=== PATIENT | male | born 1950 | race Caucasian/White ===

== ENCOUNTER 2020-07-09 19:23 | Emergency (ER) | payer MEDICARE, OTHER, SELFPAY ==
[2020-07-09 19:37] VITALS: BP 135/75; BP 150/94; PULSE 75; PULSE 80; RESP 20; TEMP 36.6; O2SAT 93; BMI 32.5
[2020-07-09 20:00] VITALS: BP 131/76; PULSE 74; RESP 16; TEMP 36.4; O2SAT 99
--- NOTE | 2020-07-09 20:27 | PC.NURSE ---
Divya [phone]
--- NOTE | 2020-07-09 21:28 | PC.NURSE ---
pt left knee to be xrayed. pt oseguera patient yellow no clots. seen.
[2020-07-09 21:29] VITALS: BP 151/73; PULSE 77; RESP 18; O2SAT 94
--- NOTE | 2020-07-09 21:40 | XR_ITS ---
EXAMINATION: XR KNEE, RIGHT CLINICAL INFORMATION: Fall COMPARISON: None TECHNIQUE: Four views of the right knee. FINDINGS: Mild medial compartment narrowing with small marginal osteophytes. No fracture. No significant joint effusion. Prepatellar subcutaneous edema/soft tissue swelling. XR/XR knee RT 4V IMPRESSION: No fracture. Mild medial compartment osteoarthritis. Prepatellar subcutaneous edema.
--- NOTE | 2020-07-09 21:53 | ED.MALEGU ---
HPI - Male Genitourinary General Chief complaint: Urogenital-Male Stated complaint: catheter problem Time Seen by Provider: 07/09/20 21:05 Source: patient Mode of arrival: wheelchair History of Present Illness HPI Narrative: This is a 69-year-old male who is brought in with complaints of having fallen onto the right knee without head strike and denies any blood thinners. He states that he has 24 hour care and that he waited until his caregiver had left the house and then attempted to stand on his own but self endorses that he should be strictly using a wheelchair. He denies any associated dizziness, shortness of breath, chest pain / palpitations, recent fevers or chills. He states that his right knee bothers him a little bit but at the time of the event the Witt catheter got pulled on the on the edge of the chair and became dislodged. Related Data Allergies Allergy/AdvReac Type Severity Reaction Status Date / Time No Known Allergies Allergy Verified 07/09/20 19:36 [No Known Allergies*] Review of Systems Review of Systems: Pertinent positives and negatives as stated in HPI 10 point review of systems is otherwise negative. [facility] Past Medical History Source: nursing notes reviewed Medical History Borderline diabetic Hypertension Hyperthyroidism Myocardial infarct Urinary catheter in place Social History Social History Alcohol intake: never Smoking Status: Never smoker Use of substances other than those prescribed or required for medical reasons: No Advance Directives: No Physical Exam Vital Signs: Vital Signs: Last Vital Signs Temp 97.6 F 07/09/20 20:00 Pulse 77 07/09/20 21:29 Resp 18 07/09/20 21:29 BP 151/73 H 07/09/20 21:29 Pulse Ox 94 07/09/20 21:29 Body Mass Index 32.5 VITAL SIGNS: Reviewed. GENERAL: Well developed, well nourished, in no acute distress. HEAD: Normocephalic/atraumatic, EYES: PERRLA, EOMI intact without pain, no nystagmus/pallor/icterus noted EARS: Ext canals without abnormality, TMs non-bulging and non-erythematous NOSE: Nares patent bilateral OROPHARYNX: no oral lesions noted, posterior pharynx clear and non-erythematous without noted tonsillar enlargement/erythema/exudates NECK: Supple, no adenopathy LUNGS: Normal breath sounds. No adventitious sounds or accessory muscle use. SpO2<94> CARDIOVASCULAR: Regular rate and rhythm without noted murmurs, no JVD or lower extremity edema. ABDOMEN: Soft, non-tender, non-distended with bowel sounds. No rigidity. No guarding. No palpable masses or hernias noted MUSCULOSKELETAL: No tenderness, deformities, or effusions noted on gross inspection. EXTREMITIES: No cyanosis, clubbing or edema; RIGHT KNEE: no ecchymosis, minimal swelling, no erythema and patient with limited range of motion at baseline. SKIN: Inspection of the skin reveals no rashes, ulcerations, jaundice, pallor, or petechiae. NEUROLOGIC: Alert and oriented x 4. Strength and sensation to light touch were grossly intact x 4. Course Course Course Narrative: This is a 69-year-old male with history and clinical presentation consistent with mechanical fall with isolated contusion to the right knee and on x-ray evaluation not significant for any fracture or dislocation and Witt catheter was successfully replaced with clear, yellow urine. All results and findings were discussed with the patient at bedside and he wishes to be discharged to home at this time. Discharge Plan Discharge Clinical Impression: Dislodged Witt catheter Qualifiers: Encounter type: initial encounter Qualified Code(s): T83.021A - Displacement of indwelling urethral catheter, initial encounter Contusion Qualifiers: Encounter type: initial encounter Contusion area: knee Laterality: right Qualified Code(s): S80.01XA - Contusion of right knee, initial encounter Patient Disposition: Home, Self-Care Instructions: Contusion in Adults (ED), Witt Catheter Placement and Care (ED) Additional Instructions: The patient and/or family acknowledge understanding of results (as applicable), diagnosis, treatment plan, need for follow up, and symptoms that should prompt a return to the emergency room. Referrals: Physician,Unknown [Primary Care Provider] - 2 days
[2020-07-09 21:58] VITALS: BP 167/80; PULSE 80; RESP 16; TEMP 36.4; O2SAT 96
--- NOTE | 2020-07-09 22:19 | PC.NURSE ---
pt's caregiver called for discharge, pt needs chairvan/ambulance for transport home. pt [facility] time [facility] due to bilateral leg weakness following hear attack 7 months ago. per patient.
== END 2020-07-09 23:13 | disposition home or self-care (01) ==
PROVIDERS: Emergency Provider Student in an Organized Health Care Education/Training Program
DX: S80.01XA Contusion of right knee, initial encounter (principal); T83.021A Displacement of indwelling urethral catheter, initial encounter; M25.561 Pain in right knee; W01.0XXA Fall on same level from slipping, tripping and stumbling without subsequent striking against object, initial encounter; Y93.9 Activity, unspecified; Y92.9 Unspecified place or not applicable; Y99.9 Unspecified external cause status; Z79.899 Other long term (current) drug therapy
CPT/HCPCS: 51798; 73564; 99283; 99284

== ENCOUNTER 2020-10-15 13:34 | Outpatient (REF) | payer MEDICARE, OTHER, SELFPAY ==
[2020-10-15 16:30] LABS: Glucose Urine UA NEG (NEG); Leukocyte Esterase Urine 3+ (NEG); Nitrite Urine NEG (NEG); PH 6.5 (5.0-8.0); Specific Gravity - Urine 1.015 (1.005-1.025); UACC Culture Trigger YES; Urine Blood TRACE (NEG); Urine Ketones NEG (NEG); Urine Protein NEG (NEG-TRACE)
[2020-10-15 16:31] LABS: Appearance Urine HAZY; Color Urine YELLOW
[2020-10-15 16:39] LABS: Bacteria Urine 1+ /LPF; RBC Urine 0 /HPF (0)
== END 2020-10-15 13:35 | disposition home or self-care (01) ==
LOC: HO.HMGCLNP 13:34
PROVIDERS: PCP Internal Medicine; Visit Provider Internal Medicine
DX: Z13.89 Encounter for screening for other disorder (principal)
CPT/HCPCS: 81001; 81003; 87086; 87088

== ENCOUNTER 2020-10-16 23:44 | Inpatient (IN) | payer MEDICARE, OTHER, SELFPAY ==
--- NOTE | ~2020-10-16 | XR_ITS ---
EXAMINATION: XR CHEST CLINICAL INFORMATION: Status post NG tube placement COMPARISON: Chest radiographs 10/17/2020, 11/07/2019 TECHNIQUE: Portable upright AP view of the chest is performed at 1313 hours. FINDINGS: Patient has been extubated since prior study 10/17/2020. There is now an NG tube seen with distal end in the abdomen and extending beyond the inferior film [id number]. Right internal jugular central venous line tip again at proximal right atrium. There are low lung volumes with bibasilar atelectasis. There is interval patchy airspace consolidation left lower zone and right infrahilar region. No pneumothorax or pneumomediastinum. XR/XR chest 1V IMPRESSION: 1. Status post extubation. Status post NG tube with distal end in abdomen. 2. Right IJ catheter unchanged, proximal right atrium. 3. Interval airspace consolidation left lower zone, right infrahilar region, and subsegmental atelectasis right base.
--- NOTE | ~2020-10-16 | XR_ITS ---
EXAMINATION: XR CHEST CLINICAL INFORMATION: Altered mental status COMPARISON: 11/07/2019 TECHNIQUE: Frontal view of the chest was obtained. FINDINGS: Enteric tube courses into the stomach. Right IJ central line tip lies in the region of the cavoatrial junction. Endotracheal tube tip lies at the level of the alli. The lungs are hypoinflated, with associated mild bibasilar opacities suggesting atelectasis in this setting. No evidence of pneumothorax or significant pleural effusion. Cardiomediastinal silhouette is prominent and likely accentuated by low lung volumes as well as patient rotation. Calcification is present at the aortic arch. No acute osseous findings are seen. XR/XR chest 1V IMPRESSION: Endotracheal tube tip at the level of the alli; retraction recommended. Low lung volumes with associated mild bibasilar opacities suggesting atelectasis. Prominent cardiac silhouette may be accentuated by hypoinflation and patient rotation. This critical result was discussed with Dr. Scott on 10/17/2020 12:53 AM, and it was ascertained that the content and urgency of the report was understood at the time of direct communication.
--- NOTE | ~2020-10-16 | CT_ITS ---
EXAM: NONCONTRAST CT OF THE CHEST; NONCONTRAST CT OF THE ABDOMEN AND PELVIS INDICATION: Pneumonia, altered mental status, question small bowel obstruction COMPARISON: Chest x-ray from earlier today TECHNIQUE: No IV contrast was utilized. Multidetector helical imaging was performed through the chest, abdomen, and pelvis. Coronal and sagittal reformatted images were created at the technologist workstation. DOSE LOWERING TECHNIQUES: This CT examination was performed using dose optimization techniques as appropriate, variously including the following: - Automated exposure control - Adjustment of mA and/or kV according to patient size (this includes techniques or standardized protocols for targeted exams were dose is matched to indication/reason for exam; i.e. extremities or head) - Use of iterative reconstruction technique DLP: 1928 mGy-cm FINDINGS: Chest: Endotracheal tube tip lies approximately 0.5 cm above the alli. There are dense regions of opacification bilaterally involving all lobes, predominantly in the inferior/posterior aspects. In addition, there are scattered multifocal regions of mixed consolidation and groundglass opacity bilaterally. No pneumothorax or significant pleural effusion. Partially calcified right thyroid lobe nodule is not well delineated on this exam. There are subcentimeter mediastinal lymph nodes within the range of normal variation. Borderline cardiomegaly without pericardial effusion. Coronary artery calcifications are present. There is atherosclerotic calcification along the aorta. No axillary lymphadenopathy is present. Abdomen/Pelvis: The liver demonstrates hypoattenuation suspicious for steatosis. No intrahepatic biliary ductal dilatation. The gallbladder is unremarkable. The unenhanced spleen and adrenal glands are within normal limits. There is partial fatty atrophy of pancreas. Redemonstrated bilateral renal cysts. There is a right renal calculus measuring up to 10 mm in length. No hydronephrosis bilaterally. The urinary bladder is decompressed with a Witt catheter. The prostate and seminal vesicles are unremarkable. Enteric tube terminates in the stomach. There is gaseous distention of multiple small bowel loops in the upper abdomen, some of which are mildly dilated with some fecalized material. In contrast, distal small bowel loops are collapsed. No discrete transition point is seen. Moderate amount of stool is present in the colon. The appendix is unremarkable. No free fluid or free air is identified. There is atherosclerotic calcification along the aorta. No retroperitoneal or pelvic lymphadenopathy is seen. Degenerative changes are noted in the spine. CT/CT abdomen pelvis wo con IMPRESSION: 1. Multifocal regions of pulmonary consolidation bilaterally suspicious for pneumonia. Dense regions of opacification towards the bilateral lung bases are favored to at least partially represent atelectasis. 2. Endotracheal tube tip approximately 0.5 cm above the alli. Retraction recommended. 3. Mildly dilated gas-filled small bowel loops in the upper to mid abdomen with collapsed small bowel loops distally. No discrete transition point is seen, and appearance could reflect sequelae of ileus or a partial/developing small bowel obstruction.
--- NOTE | ~2020-10-16 | XR_ITS ---
EXAMINATION: XR CHEST CLINICAL INFORMATION: CHF. Pneumonia. COMPARISON: Previous chest x-ray 10/19/2020 TECHNIQUE: Frontal view of the chest was obtained. FINDINGS: The cardiac silhouette is slightly enlarged but stable. Hilar and mediastinal contours are unremarkable. There is a right jugular line with tip projecting over the cavoatrial junction. The lung volumes are low. There is interval improvement in the bilateral airspace disease. There is no pleural effusion. There are degenerative changes of the spine. XR/XR chest 1V IMPRESSION: Slightly enlarged cardiac silhouette. Low lung volumes. Improved bilateral airspace disease from previous exams. No evidence of CHF.
--- NOTE | ~2020-10-16 | XR_ITS ---
EXAMINATION: XR ABDOMEN KUB CLINICAL INDICATION: Ileus COMPARISON: CT abdomen/pelvis dated 10/17/2020 TECHNIQUE: 3 views of the abdomen. FINDINGS: Enteric tube terminates within the distal stomach or first portion of the duodenum. The bowel gas pattern is normal with no evidence of ileus or obstruction. Moderate stool present throughout the colon, without dilatation. No unusual soft tissue calcifications are noted. Bibasilar subsegmental atelectasis redemonstrated No acute or suspicious osseous abnormalities. XR/XR abdomen 1V IMPRESSION: No evidence of obstruction or ileus. Moderate constipation without colonic dilatation.
--- NOTE | ~2020-10-16 | XR_ITS ---
EXAMINATION: PORTABLE CHEST 1 VIEW CLINICAL INFORMATION: s/p intubation . COMPARISON: 10/19/2020. TECHNIQUE: Portable frontal view of the chest was obtained. FINDINGS: Endotracheal tube tip approximately 2 cm above the alli. Nasogastric tube along the greater curve of the stomach but the tip not included on the study. The lungs are hypoexpanded with patchy bilateral airspace disease at the bases, similar to earlier today.. No overt edema or pneumothorax. Cardiac silhouette within normal limits for size with vascular calcification in aorta XR/XR chest 1V IMPRESSION: Intubated. Hypoexpanded with persistent basilar airspace disease bilaterally similar to earlier today
--- NOTE | 2020-10-16 23:49 | PC.NURSE ---
PT ARRIVED TO DEPT VIA EMS / C/O 5-6 RECENT CONSTIPATION, AMS, LARGE FIRM DISTENDED BELLY O2 SAT ON ARRIVAL FOR EMS 60% RA THEN TO 84% ON NRB 2354- PER MD 20MG ETOMIDATE, 50MG SALIMA, PLAN FOR INTUBATION & OG TUBE 2355 ETOMIDATE IN BP91/55 HR 80 O2 SAT 91 ON NRB 2357 SALIMA 50MG IN HR 76 O2 SAT 89% VIA BVM BP 103/61 3 0000 MD ATTEMPTING INTUBATION 0001 99/59 HR 81 R14 O2 SAT 76 VIA BVM WHILE MD CONTINUES INTUBATION. 0003 SUCCESSFUL INTUBATION ET TUBE SIZE 8 #27 @ LIP W/+ COLOR CHANGE & LUNG SOUNDS VENT SETTINGS- R16 TV 500 02 100% FIO2 60 PEEP 8 0004 OG TUBE DROPPED BY MD #18 DRAINING DARK BRWN FLUID. 0006 1050CC OF DARK BROWN FLUID DRAINED BP 95/59 O2 SAT 99% R 13 HR 84, ADDITIONAL 1100CC DRAINED 0009 104/59 HR 83 99%- PLAN FOR CENTRAL LINE 0013 HR 79 02 100% BP 95/57 R17, PT HAS HART IN PLACE PRIOR TO ARRIVAL 0015 ADDITIONAL 300CC DARK BROWN FLUID DRAINED 0017 99/58 HR 77 R20 CO2 44 O2 100% 0027 BP 116/83 HR 77 R 16 CO2 34 0034 123/63 HR 78 0040 PROPOFOL STARTED @ 20MCG/KG PER MD CAN INCREASE BY 10MCG/KG Q 15 MINS W/ A MAX TOTAL OF 50MCG
--- NOTE | 2020-10-16 23:49 | ECG_ITS ---
Test Reason : HYPOXIA Blood Pressure : / mmHG Vent. Rate : 071 BPM Atrial Rate : 071 BPM P-R Int : 184 ms QRS Dur : 116 ms QT Int : 428 ms P-R-T Axes : 059 -06 042 degrees QTc Int : 465 ms Normal sinus rhythm Incomplete right bundle branch block Inferior infarct (cited on or before 17-MAY-2018) Abnormal ECG When compared with ECG of 07-NOV-2019 14:20, No significant change was found Referred By: Keila Staton Electronically Signed By:DERICK FINELY
--- NOTE | 2020-10-16 23:50 | ED_ITS ---
HPI - Altered Mental Status General Chief Complaint: Altered Mental Status Stated Complaint: AMS LOW O2 Time Seen by Provider: 10/16/20 23:45 Source: family and EMS Mode of arrival: EMS Limitations: altered mental status History of Present Illness HPI narrative: Patient with history of diabetes CHF hypertension and constipation was admitted [facility] 08/2020 for constipation STIVEN and hypoxia came here for not feeling good since afternoon today did eat much in the evening around 06:00 o'clock patient started vomiting multiple times coffee colored had a big bowel movement and became obtunded, desaturated to 70% when EMS arrived patient , on arrival patient was obtunded with distended abdomen, taking shallow breaths saturating 86% on non-rebreather. MD complaint: altered mental status Related Data Allergies Allergy/AdvReac Type Severity Reaction Status Date / Time No Known Allergies Allergy Verified 07/09/20 19:36 [No Known Allergies*] Review of Systems Review of Systems: Yes Unobtainable due to mental status PMFSH Past Medical History Medical History Borderline diabetic Hypertension Hyperthyroidism Myocardial infarct Urinary catheter in place Social History Social History Alcohol intake: never Smoking Status: Never smoker Advance Directives: No Advance Directives Information Provided: No Physical Exam Vital Signs: Vital Signs: Last Vital Signs Temp 96.6 F L 10/17/20 00:53 Pulse 70 10/17/20 01:26 Resp 16 10/17/20 00:53 BP 83/25 L 10/17/20 01:26 Pulse Ox 91 L 10/17/20 00:53 Body Mass Index 40.7 Const: General: in distress severe and respiratory, ill appearing, lethargic and patient obtunded Nutritional Appearance: malnourished Orienta tion/consciousness: patient obtunded and lethargic HENMT: Head: Yes normocephalic and Yes atraumatic Ears: hearing grossly normal bilaterally Mouth: Normal oral and palatal mucosa present Eyes: General: appearance normal, both eyes and all related structures Pupi ls: Dilated pupils Neck: Neck: Yes normal visual inspection Chest: Chest palpation & inspection: normal inspection of the chest and normal palpation of entire chest wall Resp: Effort & Inspection: decreased respiratory effort and respiratory distress Auscultation: crackles, rales, no rhonchi and no wheezes Cardio: Rate: regular rate Rhythm: regular rhythm Heart sounds: S1 normal heart sound present and S2 normal heart sound present Peripheral pulse s: Peripheral pulses 2+ throughout GI: Inspection: Yes distended Palpation (GI): Soft to palpation Percussion: Yes tympanic to percussion Auscultation: Hypoactive bowel sounds present Rectal Exam - Male: Yes normal sphincter tone and Yes heme negative stool Back/Spine/Pelvis: Thoracic/Lumbar Spine: thoracic and lumbar spine normal to inspection Skin: General skin exam: no rashes or lesions noted Neuro: General: patient obtunded Extrem: General: Yes pedal edema Procedures Central Line Placement Right IJ: Time Out Performed: Yes Patient Placed on Monitor/Pulse Ox: Yes MD Prep: mask, gown and gloves Central Line Prep: Chlorhexidine scrub Ultrasound Used for Placement: Yes Central Line Lumen Inserted: triple Post Procedure: sutured in place, good blood return, all ports aspirated, flushed, capped and sterile dressing applied Post Procedure X-Ray: tip of catheter in good position and no pneumothorax seen Patient Tolerated Procedure: no complications Complications: none Intubation Time out performed: Yes sedative: Etomidate Mg Given: 20 paralytic: Rocuronium Mg Given: 50 Laryngoscope: [place] ET Tube Size: 8 ET Tube Uncuffed: No Tube Secured Depth (cm): 26 Tube Secured Location: lips Tube Placement Confirmation: visualized tube passing through cords and equal breath sounds bilaterally Patient Tolerated Procedure: well Intubation Complications: none Additional Comments: Tube repositioned, pulled out 3 cm after chest x-ray MDM - Altered Mental Status MDM Narrative Medical decision making narrative: Patient today with altered mental status with coffee colored vomiting with hypoxia on arrival. Patient was intubated for pat ient being obtunded with hypoxia saturating 88% on Ambu bag NG tube was placed and aspirated about 2500 cc of coffee colored fluid etiology of patient's situation is not very clear . Will do CT scan of the chest to rule out aspiration pneumonia as cause of hypoxia also will do the CT abdomen. Patient on arrival was not hypotensive after intubation and IV propofol patient's blood pressure dropped and Levophed drip was started. Patient is obese ideal body weight is 60 kg and patient has received more than 30 cc/kilogram body weight IV fluids also will start patient on Zosyn Medical Records Attestation: I reviewed the patient's medical records. Lab Data Attestation: I reviewed the patient's lab results. Result diagrams: 10/17/20 00:35 10/17/20 00:35 Labs: Lab Results 10/16/20 10/17/20 10/17/20 Range/Units 23:48 00:34 00:34 WBC (4.8-10.8) X10*3/uL RBC (4.60-5.80) X10*6/uL Hgb (14.0-18.0) g/dl Hct (42-52) % MCV (80-98) fL MCH (27.0-33.0) pg MCHC (31.0-36.0) g/dl RDW (11.0-16.0) % Plt Count (160-400) X10*3/uL MPV (9.4-12.4) fL Immature Gran % (Auto) (0.0-0.4) % Neut % (Auto) (45-73) % Lymph % (Auto) (20-40) % [place] % (Auto) (2-11) % Eos % (Auto) (0-4) % Baso % (Auto) (0-2) % Lymph # (Auto) (1.2-4.9) X10*3/uL [place] # (Auto) (0.1-1.2) X10*3/uL Eos # (Auto) (0.0-0.4) X10*3/uL Baso # (Auto) (0.0-0.2) X10*3/uL Abs Immat Gran (auto) (0.00-0.03) X10*3/uL Absolute Neuts (auto) (2.0-8.3) X10*3/uL Absolute Nucleated RBC (0.0-0.012) X10*3/uL Nucleated RBC % (auto) (0.0-0.2) /100WBC PT (10.8-13.0) SEC INR (0.9-1.1) APTT (24.1-38.0) SEC VBG pH (7.32-7.43) VBG pCO2 mmHg VBG pO2 mmHg VBG HCO3 (22-26) mmol/L VBG O2 Saturation % VBG Base Excess mmol/L Sodium (135-145) mmol/L Potassium (3.3-5.1) mmol/L Chloride (96-108) mmol/L Carbon Dioxide (22-29) mmol/L Anion Gap (12-20) BUN (9-16) mg/dL Creatinine (0.5-1.4) mg/dL Estim Creat Clear Calc Estimated GFR POC Glucose 222 H (60-115) mg/dL Random Glucose (60-115) mg/dL Lactic Acid (0.5-2.0) mmol/L Calcium (8.4-10.2) mg/dL Magnesium (1.6-2.6) mg/dL Total Bilirubin (0.0-1.0) mg/dL Direct Bilirubin (0.0-0.5) mg/dL AST (5-37) U/L ALT (0-40) U/L Alkaline Phosphatase (39-117) U/L Ammonia (13-55) umol/L Troponin I High Sens (<3.5-35.0) ng/L B-Natriuretic Peptide 27 (<100) pg/mL Total Protein (6.5-8.0) g/dL Albumin (3.5-5.0) g/dL Lipase (8-78) U/L Procalcitonin ng/mL Stool Occult Blood (NEG) Ethyl Alcohol mg/dL COVID-19 (AC) Negative (Negative) COVID-19 Clin Com See Note Blood Type Antibody Screen 10/17/20 10/17/20 10/17/20 Range/Units 00:34 00:34 00:34 WBC (4.8-10.8) X10*3/uL RBC (4.60-5.80) X10*6/uL Hgb (14.0-18.0) g/dl Hct (42-52) % MCV (80-98) fL MCH (27.0-33.0) pg MCHC (31.0-36.0) g/dl RDW (11.0-16.0) % Plt Count (160-400) X10*3/uL MPV (9.4-12.4) fL Immature Gran % (Auto) (0.0-0.4) % Neut % (Auto) (45-73) % Lymph % (Auto) (20-40) % [place] % (Auto) (2-11) % Eos % (Auto) (0-4) % Baso % (Auto) (0-2) % Lymph # (Auto) (1.2-4.9) X10*3/uL [place] # (Auto) (0.1-1.2) X10*3/uL Eos # (Auto) (0.0-0.4) X10*3/uL Baso # (Auto) (0.0-0.2) X10*3/uL Abs Immat Gran (auto) (0.00-0.03) X10*3/uL Absolute Neuts (auto) (2.0-8.3) X10*3/uL Absolute Nucleated RBC (0.0-0.012) X10*3/uL Nucleated RBC % (auto) (0.0-0.2) /100WBC PT 12.5 (10.8-13.0) SEC INR 1.1 (0.9-1.1) APTT 32.2 (24.1-38.0) SEC VBG pH (7.32-7.43) VBG pCO2 mmHg VBG pO2 mmHg VBG HCO3 (22-26) mmol/L VBG O2 Saturation % VBG Base Excess mmol/L Sodium (135-145) mmol/L Potassium (3.3-5.1) mmol/L Chloride (96-108) mmol/L Carbon Dioxide (22-29) mmol/L Anion Gap (12-20) BUN (9-16) mg/dL Creatinine (0.5-1.4) mg/dL Estim Creat Clear Calc Estimated GFR POC Glucose (60-115) mg/dL Random Glucose (60-115) mg/dL Lactic Acid (0.5-2.0) mmol/L Calcium (8.4-10.2) mg/dL Magnesium (1.6-2.6) mg/dL Total Bilirubin (0.0-1.0) mg/dL Direct Bilirubin (0.0-0.5) mg/dL AST (5-37) U/L ALT (0-40) U/L Alkaline Phosphatase (39-117) U/L Ammonia (13-55) umol/L Troponin I High Sens 5.3 (<3.5-35.0) ng/L B-Natriuretic Peptide (<100) pg/mL Total Protein (6.5-8.0) g/dL Albumin (3.5-5.0) g/dL Lipase (8-78) U/L Procalcitonin ng/mL Stool Occult Blood (NEG) Ethyl Alcohol < 10 mg/dL COVID-19 (AC) (Negative) COVID-19 Clin Com Blood Type Antibody Screen 10/17/20 10/17/20 10/17/20 Range/Units 00:34 00:34 00:35 WBC 13.9 H (4.8-10.8) X10*3/uL RBC 4.63 (4.60-5.80) X10*6/uL Hgb 12.8 L (14.0-18.0) g/dl Hct 39.3 L (42-52) % MCV 84.9 (80-98) fL MCH 27.6 (27.0-33.0) pg MCHC 32.6 (31.0-36.0) g/dl RDW 13.4 (11.0-16.0) % Plt Count 340 (160-400) X10*3/uL MPV 9.6 (9.4-12.4) fL Immature Gran % (Auto) 0.4 (0.0-0.4) % Neut % (Auto) 84.4 H (45-73) % Lymph % (Auto) 6.7 L (20-40) % [place] % (Auto) 7.2 (2-11) % Eos % (Auto) 1.1 (0-4) % Baso % (Auto) 0.2 (0-2) % Lymph # (Auto) 0.9 L (1.2-4.9) X10*3/uL [place] # (Auto) 1.0 (0.1-1.2) X10*3/uL Eos # (Auto) 0.2 (0.0-0.4) X10*3/uL Baso # (Auto) 0.0 (0.0-0.2) X10*3/uL Abs Immat Gran (auto) 0.05 H (0.00-0.03) X10*3/uL Absolute Neuts (auto) 11.8 H (2.0-8.3) X10*3/uL Absolute Nucleated RBC 0.000 (0.0-0.012) X10*3/uL Nucleated RBC % (auto) 0.0 (0.0-0.2) /100WBC PT (10.8-13.0) SEC INR (0.9-1.1) APTT (24.1-38.0) SEC VBG pH (7.32-7.43) VBG pCO2 mmHg VBG pO2 mmHg VBG HCO3 (22-26) mmol/L VBG O2 Saturation % VBG Base Excess mmol/L Sodium (135-145) mmol/L Potassium (3.3-5.1) mmol/L Chloride (96-108) mmol/L Carbon Dioxide (22-29) mmol/L Anion Gap (12-20) BUN (9-16) mg/dL Creatinine (0.5-1.4) mg/dL Estim Creat Clear Calc Estimated GFR POC Glucose (60-115) mg/dL Random Glucose (60-115) mg/dL Lactic Acid (0.5-2.0) mmol/L Calcium (8.4-10.2) mg/dL Magnesium (1.6-2.6) mg/dL Total Bilirubin (0.0-1.0) mg/dL Direct Bilirubin (0.0-0.5) mg/dL AST (5-37) U/L ALT (0-40) U/L Alkaline Phosphatase (39-117) U/L Ammonia (13-55) umol/L Troponin I High Sens (<3.5-35.0) ng/L B-Natriuretic Peptide (<100) pg/mL Total Protein (6.5-8.0) g/dL Albumin (3.5-5.0) g/dL Lipase (8-78) U/L Procalcitonin 0.22 ng/mL Stool Occult Blood (NEG) Ethyl Alcohol mg/dL COVID-19 (AC) (Negative) COVID-19 Clin Com Blood Type A Negative Antibody Screen NEGATIVE 10/17/20 10/17/20 10/17/20 Range/Units 00:35 00:35 00:35 WBC (4.8-10.8) X10*3/uL RBC (4.60-5.80) X10*6/uL Hgb (14.0-18.0) g/dl Hct (42-52) % MCV (80-98) fL MCH (27.0-33.0) pg MCHC (31.0-36.0) g/dl RDW (11.0-16.0) % Plt Count (160-400) X10*3/uL MPV (9.4-12.4) fL Immature Gran % (Auto) (0.0-0.4) % Neut % (Auto) (45-73) % Lymph % (Auto) (20-40) % [place] % (Auto) (2-11) % Eos % (Auto) (0-4) % Baso % (Auto) (0-2) % Lymph # (Auto) (1.2-4.9) X10*3/uL [place] # (Auto) (0.1-1.2) X10*3/uL Eos # (Auto) (0.0-0.4) X10*3/uL Baso # (Auto) (0.0-0.2) X10*3/uL Abs Immat Gran (auto) (0.00-0.03) X10*3/uL Absolute Neuts (auto) (2.0-8.3) X10*3/uL Absolute Nucleated RBC (0.0-0.012) X10*3/uL Nucleated RBC % (auto) (0.0-0.2) /100WBC PT (10.8-13.0) SEC INR (0.9-1.1) APTT (24.1-38.0) SEC VBG pH (7.32-7.43) VBG pCO2 mmHg VBG pO2 mmHg VBG HCO3 (22-26) mmol/L VBG O2 Saturation % VBG Base Excess mmol/L Sodium 138 (135-145) mmol/L Potassium 5.5 H (3.3-5.1) mmol/L Chloride 93 L (96-108) mmol/L Carbon Dioxide 34 H (22-29) mmol/L Anion Gap 17 (12-20) BUN 28 H (9-16) mg/dL Creatinine 2.14 H (0.5-1.4) mg/dL Estim Creat Clear Calc 36.4 Estimated GFR 31 POC Glucose (60-115) mg/dL Random Glucose 232 H (60-115) mg/dL Lactic Acid 2.4 H* (0.5-2.0) mmol/L Calcium 8.5 (8.4-10.2) mg/dL Magnesium 1.9 (1.6-2.6) mg/dL Total Bilirubin 0.9 (0.0-1.0) mg/dL Direct Bilirubin 0.3 (0.0-0.5) mg/dL AST 22 (5-37) U/L ALT 33 (0-40) U/L Alkaline Phosphatase 104 (39-117) U/L Ammonia 24 (13-55) umol/L Troponin I High Sens (<3.5-35.0) ng/L B-Natriuretic Peptide (<100) pg/mL Total Protein 6.5 (6.5-8.0) g/dL Albumin 3.7 (3.5-5.0) g/dL Lipase 15 (8-78) U/L Procalcitonin ng/mL Stool Occult Blood (NEG) Ethyl Alcohol mg/dL COVID-19 (AC) (Negative) COVID-19 Clin Com Blood Type Antibody Screen 10/17/20 10/17/20 Range/Units 00:40 01:11 WBC (4.8-10.8) X10*3/uL RBC (4.60-5.80) X10*6/uL Hgb (14.0-18.0) g/dl Hct (42-52) % MCV (80-98) fL MCH (27.0-33.0) pg MCHC (31.0-36.0) g/dl RDW (11.0-16.0) % Plt Count (160-400) X10*3/uL MPV (9.4-12.4) fL Immature Gran % (Auto) (0.0-0.4) % Neut % (Auto) (45-73) % Lymph % (Auto) (20-40) % [place] % (Auto) (2-11) % Eos % (Auto) (0-4) % Baso % (Auto) (0-2) % Lymph # (Auto) (1.2-4.9) X10*3/uL [place] # (Auto) (0.1-1.2) X10*3/uL Eos # (Auto) (0.0-0.4) X10*3/uL Baso # (Auto) (0.0-0.2) X10*3/uL Abs Immat Gran (auto) (0.00-0.03) X10*3/uL Absolute Neuts (auto) (2.0-8.3) X10*3/uL Absolute Nucleated RBC (0.0-0.012) X10*3/uL Nucleated RBC % (auto) (0.0-0.2) /100WBC PT (10.8-13.0) SEC INR (0.9-1.1) APTT (24.1-38.0) SEC VBG pH 7.38 (7.32-7.43) VBG pCO2 58 mmHg VBG pO2 105 mmHg VBG HCO3 34 H (22-26) mmol/L VBG O2 Saturation 97.0 % VBG Base Excess 7.9 mmol/L Sodium (135-145) mmol/L Potassium (3.3-5.1) mmol/L Chloride (96-108) mmol/L Carbon Dioxide (22-29) mmol/L Anion Gap (12-20) BUN (9-16) mg/dL Creatinine (0.5-1.4) mg/dL Estim Creat Clear Calc Estimated GFR POC Glucose (60-115) mg/dL Random Glucose (60-115) mg/dL Lactic Acid (0.5-2.0) mmol/L Calcium (8.4-10.2) mg/dL Magnesium (1.6-2.6) mg/dL Total Bilirubin (0.0-1.0) mg/dL Direct Bilirubin (0.0-0.5) mg/dL AST (5-37) U/L ALT (0-40) U/L Alkaline Phosphatase (39-117) U/L Ammonia (13-55) umol/L Troponin I High Sens (<3.5-35.0) ng/L B-Natriuretic Peptide (<100) pg/mL Total Protein (6.5-8.0) g/dL Albumin (3.5-5.0) g/dL Lipase (8-78) U/L Procalcitonin ng/mL Stool Occult Blood NEG (NEG) Ethyl Alcohol mg/dL COVID-19 (AC) (Negative) COVID-19 Clin Com Blood Type Antibody Screen ECG Data ECG #1: Attestation: I personally reviewed and interpreted this ECG as follows: Interpretation: Normal sinus rhythm with heart rate 71 incomplete right bundle-branch block no acute ST T wave changes normal axis impression no acute ischemia Critical Care Time Critical Care Time Critical Care Time: Yes Total Critical Care Time: 55 Attestation: I spent 55 minutes of critical care, with interventions, assessments, speaking to consultants, and family. Discharge Plan Discharge Clinical Impression: Acute upper gastrointestinal bleeding, Hypoxia Altered mental status Qualifiers: Altered mental status type: stupor Qualified Code(s): R40.1 - Stupor Acute renal failure Qualifiers: Acute renal failure type: with acute tubular necrosis Qualified Code(s): N17.0 - Acute kidney failure with tubular necrosis Patient Disposition: Admitted As Inpatient
[2020-10-17] VITALS (35 sets, daily range): BP systolic 83–172; BP diastolic 25–75; PULSE 20–126; RESP 16–24; TEMP 35.9–39.3; O2SAT 91–100; BMI 40.7; BMI 39.9
[2020-10-17] LABS: Glucose, Whole Blood 222 mg/dL (60-115)
[2020-10-17] MEDS: Rocuronium Bromide 50 MG/5 ML VIAL IVPUSH (00:16)
[2020-10-17] MEDS: Pantoprazole Sodium 40 MG/10 ML VIAL 80 MG IVPUSH (00:16)
[2020-10-17] MEDS: Etomidate 20 MG/10 ML VIAL IVPUSH (00:17)
[2020-10-17] MEDS: 0.9 % Sodium Chloride 1,000 ML 999 ML IVCONT ×3 (00:17→05:50)
[2020-10-17 00:47] LABS: MANUAL DIFF FLAG NO
--- NOTE | 2020-10-17 00:48 | PC.NURSE ---
Propofol started at 0040 with an initial dose of 20 mcg/kg/min.
[2020-10-17 00:51] LABS: Basophils Percent Auto 0.2 % (0-2); Eosinophils Absolute Auto 0.2 X10*3/uL (0.0-0.4); Eosinophils Percent Auto 1.1 % (0-4); Hematocrit 39.3 % (42-52); Hemoglobin 12.8 g/dl (14.0-18.0); Imm Gran Abs Auto 0.05 X10*3/uL (0.00-0.03); Imm Gran Pct Auto 0.4 % (0.0-0.4); Lymphocytes Absolute Auto 0.9 X10*3/uL (1.2-4.9); Lymphocytes Percent Auto 6.7 % (20-40); Mean Corpuscular HGB Conc 32.6 g/dl (31.0-36.0); Mean Corpuscular Hemoglobin 27.6 pg (27.0-33.0); Mean Corpuscular Volume 84.9 fL (80-98); Mean Platelet Volume 9.6 fL (9.4-12.4); Monocytes Percent Auto 7.2 % (2-11); Neutrophils Absolute Auto 11.8 X10*3/uL (2.0-8.3); Neutrophils Percent Auto 84.4 % (45-73); Platelet Count 340 X10*3/uL (160-400); Red Blood Count 4.63 X10*6/uL (4.60-5.80); Red Cell Distribution Width 13.4 % (11.0-16.0); White Blood Count 13.9 X10*3/uL (4.8-10.8)
[2020-10-17 00:54] LABS: OBS Int Ctl Valid YES; OBS1 NEG (NEG)
[2020-10-17 00:58] LABS: INTERNATIONAL NORM RATIO 1.1 (0.9-1.1); Prothrombin Time 12.5 SEC (10.8-13.0)
[2020-10-17 01:00] LABS: Partial Thromboplastin Time 32.2 SEC (24.1-38.0)
[2020-10-17 01:02] LABS: COVID-19 Test Negative (Negative); IDNOW Serial# 9DD0AD1C
[2020-10-17 01:06] LABS: Ammonia 24 umol/L (13-55)
[2020-10-17 01:10] LABS: Ethanol < 10 mg/dL
[2020-10-17 01:16] LABS: Alanine Aminotransferase 33 U/L (0-40); Albumin Level 3.7 g/dL (3.5-5.0); Alkaline Phosphatase 104 U/L (39-117); Anion Gap 17 (12-20); Aspartate Amino Transferase 22 U/L (5-37); Bilirubin Direct 0.3 mg/dL (0.0-0.5); Bilirubin Total 0.9 mg/dL (0.0-1.0); Blood Urea Nitrogen 28 mg/dL (9-16); Calcium 8.5 mg/dL (8.4-10.2); Carbon Dioxide 34 mmol/L (22-29); Chloride 93 mmol/L (96-108); Creatinine Clr Calc Pharmacy 36.4; Estimated Glomerular Filt Rate 31; Glucose Random 232 mg/dL (60-115); Lipase 15 U/L (8-78); Magnesium 1.9 mg/dL (1.6-2.6); Potassium 5.5 mmol/L (3.3-5.1); Sodium 138 mmol/L (135-145); Total Protein 6.5 g/dL (6.5-8.0)
[2020-10-17 01:16] LABS: Venous Blood Gas Refer to POC result
[2020-10-17 01:17] LABS: VBG Base Excess 7.9 mmol/L; VBG HCO3 34 mmol/L (22-26); VBG pCO2 58 mmHg; VBG pH 7.38 (7.32-7.43); VBG pO2 105 mmHg
--- NOTE | 2020-10-17 01:17 | PC.NURSE ---
NOREPI STARTED @ 0.05MCG/KG/MIN @ 0117 THEN INCREASED TO 0.07MCG/KG/MIN PT TOLERATING THIS WELL
[2020-10-17 01:18] LABS: B Type Natriuretic Peptide 27 pg/mL (<100); Troponin-I High Sensitivity 5.3 ng/L (<3.5-35.0)
[2020-10-17 01:19] LABS: Lactic Acid 2.4 mmol/L (0.5-2.0)
[2020-10-17 01:32] LABS: Procalcitonin 0.22 ng/mL
[2020-10-17] MEDS: Piperacillin Sodium/Tazobactam 3.375 GM in 0.9 % Sodium Chloride 50 ML IV ×3 (01:32→22:03)
[2020-10-17 02:45] LABS: Reflex Lactate? Lactic Acid Added
--- NOTE | 2020-10-17 03:57 | PM.CCHP ---
History of Present Illness Date of Service: 10/17/20 <Ingrid Dunbar PA-C - Last Filed: 10/17/20 04:37> Chief Complaint: AMS <Ingrid Dunbar PA-C - Last Filed: 10/17/20 04:37> Patient is a 70-year-old gentleman with a past medical history of diabetes, CHF, HTN, prior SD and constipation who had an admission at [facility] in August 2020 for constipation, STIVEN and hypoxia. Patient was BIBA after being found at home with it O2 saturation of 70%. Patient is nonambulatory and has a PROSTHETIC ASSISTANT. His PROSTHETIC ASSISTANT states the patient started to not feel well yesterday afternoon, he stated he is constipated so his PROSTHETIC ASSISTANT gave him a Fleet enema. He did not eat lunch and then around 06:00 o'clock in the evening he vomited multiple times, coffee colored emesis. After the vomiting episode, the patient had a large bowel movement, not bloody or black. The PROSTHETIC ASSISTANT states the patient became obtunded at that point so she called EMS. Upon arrival to the ED, the patient was , had a distended abdomen and was shallow breathing on a non-rebreather with O2 saturation of 86%. First vital signs are recorded by the ED were 96.6F, HR68, RR16, BP 101/35 SpO2 91% on vent. Patient was emergently intubated. When OG tube was placed, 2500 cc of coffee colored fluid was aspirated. Patient was given Zosyn, Vanco and IV fluids in the ED. Labs were significant for white count 13.9, VBG done after intubation was as follows 7.38/58/105/34/97/7.9, K 5.5, Cl 93, serum bicarb 34, BUN 28, Cr 2.14, Lactic acid 2.4, Heme-negative stool. Records indicate he was + UA 10/15/20. Patient will be transferred to the ICU. <Ingrid Dunbar PA-C - Last Filed: 10/17/20 04:37> Review of Systems Review of Systems: Yes Unobtainable due to mental status <Ingrid Dunbar PA-C - Last Filed: 10/17/20 04:37> [facility] Past Medical History Medical History: Medical History Borderline diabetic Hypertension Hyperthyroidism Myocardial infarct Urinary catheter in place <Ingrid Dunbar PA-C - Last Filed: 10/17/20 04:37> Functional capacity: bed bound <Ingrid Dunbar PA-C - Last Filed: 10/17/20 04:37> Social History Social History: Social History Household Members: Unknown / Unable to assess Housing: Unknown / Unable to assess Unable to assess alcohol history related to: Unknown Alcohol intake: unknown Smoking Status: Unknown if ever smoked Use of substances other than those prescribed or required for medical reasons: Unknown Substance Use Type: Unknown Last Used Substance: Unknown Currently Displaying Signs/Symptoms of Drug Intoxication Withdrawal: No Advance Directives: No Advance Directives Information Provided: No service: No Current occupational status: retired <Ingrid Dunbar PA-C - Last Filed: 10/17/20 04:37> Meds Allergies/Adverse reactions: Allergies Allergy/AdvReac Type Severity Reaction Status Date / Time No Known Allergies Allergy Verified 07/09/20 19:36 [No Known Allergies*] <Ingrid Dunbra PA-C - Last Filed: 10/17/20 04:37> Active Medications: Current Medications Generic Name Dose Route Start Last Admin Trade Name Freq PRN Reason Stop Dose Admin Chlorhexidine Gluconate 15 ml 10/17/20 09:00 Chlorhexidine Gluc Oral Rinse 15 Ml Mouthwash BUCCAL TID RICA Heparin Sodium (Porcine) 5,000 unit 10/17/20 06:00 Heparin Sodium,Porcine 5,000 Unit/Ml Vial SUBCUT Q8H RICA Propofol 1,000 mg in 100 mls @ 0 mls/hr 10/17/20 00:30 Diprivan IVCONT .Q0M RICA Protocol Per Protocol Norepinephrine Bitartrate 8 mg in 250 mls @ 0 mls/hr 10/17/20 01:15 10/17/20 01:26 Levophed IVCONT 0.07 mcg/kg/min .Q0M RICA 14.57 mls/hr Titration Protocol Per Protocol Pantoprazole Sodium 80 mg/ 100 mls @ 10 mls/hr 10/17/20 01:15 Sodium Chloride IV .Q10H RICA 8 MG/HR Doxycycline Hyclate 100 mg/ 250 mls @ 166.67 mls/hr 10/17/20 06:30 Sodium Chloride IV BID@0630,1630 PENDING SALE TO [facility] Pharmacy Consult 1 each 10/16/20 23:49 Consult Rx Perform Med Rec MISCELLANE ONCE PRN Consult order <Ingrid Dunbar PA-C - Last Filed: 10/17/20 04:37> Physical Exam Vital Signs: Vital Signs: Last Vital Signs Temp 96.6 F L 10/17/20 00:53 Pulse 77 10/17/20 02:00 Resp 17 10/17/20 02:00 BP 102/49 L 10/17/20 02:00 Pulse Ox 93 10/17/20 02:00 Body Mass Index 40.7 <Ingrid Dunbar PA-C - Last Filed: 10/17/20 04:37> Const: Other: Intubated and sedated <Ingrid Dunbar PA-C - Last Filed: 10/17/20 04:37> HENMT: Head: Yes normal to inspection, Yes normocephalic and Yes atraumatic <Ingrid Dunbar PA-C - Last Filed: 10/17/20 04:37> Eyes: General: appearance normal, both eyes and all related structures <Ingrid Dunbar PA-C - Last Filed: 10/17/20 04:37> Pupils: Equal, round and reactive pupils present <Ingrid Dunbar PA-C - Last Filed: 10/17/20 04:37> Neck: Neck: Yes normal visual inspection <Ingrid Dunbar PA-C - Last Filed: 10/17/20 04:37> Resp: Auscultation: clear to auscultation bilaterally <Ingrid Dunbar PA-C - Last Filed: 10/17/20 04:37> Cardio: Rate: regular rate <Ingrid Dunbar PA-C - Last Filed: 10/17/20 04:37> Rhythm: regular rhythm <Ingrid Dunbar PA-C - Last Filed: 10/17/20 04:37> GI: Inspection: Yes distended and Yes obesity <Ingrid Dunbar PA-C - Last Filed: 10/17/20 04:37> Palpation (GI): not soft and Firmness to palpation present (GI) <Ingrid Dunbar PA-C - Last Filed: 10/17/20 04:37> Percussion: No Fluid wave present and Yes tympanic to percussion <[employer] - Last Filed: 10/17/20 04:37> Auscultation: Hypoactive bowel sounds present <Ingrid Dunbar PA-C - Last Filed: 10/17/20 04:37> Skin: General skin exam: mottling (bilateral upper thighs) <Ingrid Dunbar PA-C - Last Filed: 10/17/20 04:37> Wounds: wounds noted (healing wounds: 3 on ant. left leg, one on the right knee ) <Ingrid Dunbar PA-C - Last Filed: 10/17/20 04:37> Neuro: Cranial nerves: Yes Equal, round and reactive pupils present <Ingrid Dunbar PA-C - Last Filed: 10/17/20 04:37> Extrem: Other: bilateral legs are rigid <[employer]ANU [employer] - Last Filed: 10/17/20 04:37> General: No pedal edema <Ingrid Dunbar PA-C - Last Filed: 10/17/20 04:37> Results Labs CBC and Chem 7: : 10/17/20 03:55 10/17/20 10:17 <Ingrid Dunbar PA-C - Last Filed: 10/17/20 04:37> Labs: Laboratory Results - last 24 hr 10/16/20 10/17/20 10/17/20 23:48 00:34 00:34 MCV MCH MCHC RDW Plt Count MPV Immature Gran % (Auto) Neut % (Auto) Lymph % (Auto) Hudson % (Auto) Eos % (Auto) Baso % (Auto) Lymph # (Auto) Hudson # (Auto) Eos # (Auto) Baso # (Auto) Abs Immat Gran (auto) Absolute Neuts (auto) Absolute Nucleated RBC Nucleated RBC % (auto) PT INR APTT VBG pH VBG pCO2 VBG pO2 VBG HCO3 VBG O2 Saturation VBG Base Excess Anion Gap Estim Creat Clear Calc Estimated GFR POC Glucose 222 H Random Glucose Lactic Acid Calcium Magnesium Total Bilirubin Direct Bilirubin AST ALT Alkaline Phosphatase Ammonia Troponin I High Sens B-Natriuretic Peptide 27 Total Protein Albumin Lipase Procalcitonin Stool Occult Blood Ethyl Alcohol COVID-19 (AC) Negative COVID-19 [employer] [facility] See Note Blood Type Antibody Screen 10/17/20 10/17/20 10/17/20 00:34 00:34 00:34 MCV MCH MCHC RDW Plt Count MPV Immature Gran % (Auto) Neut % (Auto) Lymph % (Auto) Hudson % (Auto) Eos % (Auto) Baso % (Auto) Lymph # (Auto) Hudson # (Auto) Eos # (Auto) Baso # (Auto) Abs Immat Gran (auto) Absolute Neuts (auto) Absolute Nucleated RBC Nucleated RBC % (auto) PT 12.5 INR 1.1 APTT 32.2 VBG pH VBG pCO2 VBG pO2 VBG HCO3 VBG O2 Saturation VBG Base Excess Anion Gap Estim Creat Clear Calc Estimated GFR POC Glucose Random Glucose Lactic Acid Calcium Magnesium Total Bilirubin Direct Bilirubin AST ALT Alkaline Phosphatase Ammonia Troponin I High Sens 5.3 B-Natriuretic Peptide Total Protein Albumin Lipase Procalcitonin Stool Occult Blood Ethyl Alcohol < 10 COVID-19 (AC) COVID-19 [employer] Blood Type Antibody Screen 10/17/20 10/17/20 10/17/20 00:34 00:34 00:35 MCV 84.9 MCH 27.6 MCHC 32.6 RDW 13.4 Plt Count 340 MPV 9.6 Immature Gran % (Auto) 0.4 Neut % (Auto) 84.4 H Lymph % (Auto) 6.7 L Hudson % (Auto) 7.2 Eos % (Auto) 1.1 Baso % (Auto) 0.2 Lymph # (Auto) 0.9 L Hudson # (Auto) 1.0 Eos # (Auto) 0.2 Baso # (Auto) 0.0 Abs Immat Gran (auto) 0.05 H Absolute Neuts (auto) 11.8 H Absolute Nucleated RBC 0.000 Nucleated RBC % (auto) 0.0 PT INR APTT VBG pH VBG pCO2 VBG pO2 VBG HCO3 VBG O2 Saturation VBG Base Excess Anion Gap Estim Creat Clear Calc Estimated GFR POC Glucose Random Glucose Lactic Acid Calcium Magnesium Total Bilirubin Direct Bilirubin AST ALT Alkaline Phosphatase Ammonia Troponin I High Sens B-Natriuretic Peptide Total Protein Albumin Lipase Procalcitonin 0.22 Stool Occult Blood Ethyl Alcohol COVID-19 (AC) COVID-19 Clin Com Blood Type A Negative Antibody Screen NEGATIVE 10/17/20 10/17/20 10/17/20 00:35 00:35 00:35 MCV MCH MCHC RDW Plt Count MPV Immature Gran % (Auto) Neut % (Auto) Lymph % (Auto) Hudson % (Auto) Eos % (Auto) Baso % (Auto) Lymph # (Auto) Hudson # (Auto) Eos # (Auto) Baso # (Auto) Abs Immat Gran (auto) Absolute Neuts (auto) Absolute Nucleated RBC Nucleated RBC % (auto) PT INR APTT VBG pH VBG pCO2 VBG pO2 VBG HCO3 VBG O2 Saturation VBG Base Excess Anion Gap 17 Estim Creat Clear Calc 36.4 Estimated GFR 31 POC Glucose Random Glucose 232 H Lactic Acid 2.4 H* Calcium 8.5 Magnesium 1.9 Total Bilirubin 0.9 Direct Bilirubin 0.3 AST 22 ALT 33 Alkaline Phosphatase 104 Ammonia 24 Troponin I High Sens B-Natriuretic Peptide Total Protein 6.5 Albumin 3.7 Lipase 15 Procalcitonin Stool Occult Blood Ethyl Alcohol COVID-19 (AC) COVID-19 [employer] [facility] Blood Type Antibody Screen 10/17/20 10/17/20 00:40 01:11 MCV MCH MCHC RDW Plt Count MPV Immature Gran % (Auto) Neut % (Auto) Lymph % (Auto) Hudson % (Auto) Eos % (Auto) Baso % (Auto) Lymph # (Auto) Hudson # (Auto) Eos # (Auto) Baso # (Auto) Abs Immat Gran (auto) Absolute Neuts (auto) Absolute Nucleated RBC Nucleated RBC % (auto) PT INR APTT VBG pH 7.38 VBG pCO2 58 VBG pO2 105 VBG HCO3 34 H VBG O2 Saturation 97.0 VBG Base Excess 7.9 Anion Gap Estim Creat Clear Calc Estimated GFR POC Glucose Random Glucose Lactic Acid Calcium Magnesium Total Bilirubin Direct Bilirubin AST ALT Alkaline Phosphatase Ammonia Troponin I High Sens B-Natriuretic Peptide Total Protein Albumin Lipase Procalcitonin Stool Occult Blood NEG Ethyl Alcohol COVID-19 (AC) COVID-19 Clin Com Blood Type Antibody Screen <Ingrid Dunbar PA-C - Last Filed: 10/17/20 04:37> Imaging Radiologist's Impressions: Impressions Abdomen/Pelvis CT 10/17/20 00:01 IMPRESSION: 1. Multifocal regions of pulmonary consolidation bilaterally suspicious for pneumonia. Dense regions of opacification towards the bilateral lung bases are favored to at least partially represent atelectasis. 2. Endotracheal tube tip approximately 0.5 cm above the alli. Retraction recommended. 3. Mildly dilated gas-filled small bowel loops in the upper to mid abdomen with collapsed small bowel loops distally. No discrete transition point is seen, and appearance could reflect sequelae of ileus or a partial/developing small bowel obstruction. Chest X-Ray 10/17/20 00:01 IMPRESSION: Endotracheal tube tip at the level of the alli; retraction recommended. Low lung volumes with associated mild bibasilar opacities suggesting atelectasis. Prominent cardiac silhouette may be accentuated by hypoinflation and patient rotation. This critical result was discussed with Dr. Scott on 10/17/2020 12:53 AM, and it was ascertained that the content and urgency of the report was understood at the time of direct communication. Chest CT 10/17/20 01:19 IMPRESSION: 1. Multifocal regions of pulmonary consolidation bilaterally suspicious for pneumonia. Dense regions of opacification towards the bilateral lung bases are favored to at least partially represent atelectasis. 2. Endotracheal tube tip approximately 0.5 cm above the alli. Retraction recommended. 3. Mildly dilated gas-filled small bowel loops in the upper to mid abdomen with collapsed small bowel loops distally. No discrete transition point is seen, and appearance could reflect sequelae of ileus or a partial/developing small bowel obstruction. <Ingrid Dunbar PA-C - Last Filed: 10/17/20 04:37> Assessment and Plan (1) Altered mental status: Qualifiers: Altered mental status type: stupor Qualified Code(s): R40.1 - Stupor <Ingrid Dunbar PA-C - Last Filed: 10/17/20 04:37> Problem details: With patient remains on pressor support for blood pressure with restored urine output and is well compensated on the ventilator for what appears to be extensive bibasilar aspiration pneumonitis and when reviewing the discharge summary from [facility] in August constipation seems to be a chronic issue with with probable stercoraceous obstruction and there is a background of COPD with chronic hypercarbic and hypoxic respiratory insufficiency Thus far urinalysis was definitely positive for infection and growing gram-negative rods so were covering for aspiration and possible superimposed atypical pneumonia as well as possible Gram-negative urosepsis tracking his renal function lactate levels Bedside echo shows good biventricular systolic function with no primary valve or pericardial disease <Ingrid Dunbar PA-C - Last Filed: 10/17/20 04:37> Status: Acute <Ingrid Dunbar PA-C - Last Filed: 10/17/20 04:37> Pt intubated, will panculture and follow labs. <Ingrid Dunbar PA-C - Last Filed: 10/17/20 04:37> (2) Acute upper gastrointestinal bleeding: Problem details: On NG suction and IV Protonix <Ingrid Dunbar PA-C - Last Filed: 10/17/20 04:37> Status: Acute <Ingrid Dunbar PA-C - Last Filed: 10/17/20 04:37> Protonix drip <Ingrid Dunbar PA-C - Last Filed: 10/17/20 04:37> (3) Hypoxia: Problem details: Ventilator support <Ingrid Dunbar PA-C - Last Filed: 10/17/20 04:37> Status: Acute <Ingrid Dunbar PA-C - Last Filed: 10/17/20 04:37> (4) Acute renal failure: Qualifiers: Acute renal failure type: with acute tubular necrosis Qualified Code(s): N17.0 - Acute kidney failure with tubular necrosis <Ingrid Dunbar PA-C - Last Filed: 10/17/20 04:37> Problem details: Improving on fluid replacement according to CVP <Ingrid Dunbar PA-C - Last Filed: 10/17/20 04:37> Status: Acute <Ingrid Dunbar PA-C - Last Filed: 10/17/20 04:37> IVF and follow renal indices <Ingrid Dunbar PA-C - Last Filed: 10/17/20 04:37> (5) Multifocal pneumonia: Status: Acute <Ingrid Dunbar PA-C - Last Filed: 10/17/20 04:37> Respiratory panel ordered, will cover with doxycycline to cover atypicals as well as patient was given Vanco and Zosyn in the ED. <YURI Brothers Last Filed: 10/17/20 04:37> (6) Abdomen enlarged: Problem details: Patient's abdomen is distended but it's not clear how much this is due to his chronic constipation. Fecalization of SB and large bowel filled with stool on CT is confirmatory of his overall chronic gastrointestinal motility issue. CT showed no clear transition point. Hard to interpret the CT findings of small intestine at this point. Large gastric drainage (> 2 L) with NG intubation suggests chronic gastric ileus, vs. any mechcanical obstruction which is not c/w CT finding. Given the overall clinical data, any consideration of exploratory laparotomy to assess ischemic bowel would be of low yield, while the risk to his survival would be significant, thus the overall benefit-risk ratio would be low at this stage. His immediate main issue seems to be respiratory in nature, with mid-90's O2 saturation with 75% FiO2 ventilation and CT findings of bilateral air space disease. With elevated lactate I called general surgical consult who did not feel that exploratory laparotomy was warranted because we initially saw some resolution of the lactate level and he will follow along and will get another set of blood gas chemistry and lactate level this evening <Ingrid Dunbar PA-C - Last Filed: 10/17/20 04:37> Status: Acute <YURI Brothers Last Filed: 10/17/20 04:37> (7) Acute on chronic respiratory failure with hypoxia and hypercapnia: Status: Acute <YURI Brothers Last Filed: 10/17/20 04:37> (8) Atypical pneumonia: Status: Acute <YURI Brothers Last Filed: 10/17/20 04:37> (9) Aspiration pneumonitis: Status: Acute <YURI Brothers Last Filed: 10/17/20 04:37> (10) Partial obstruction of small intestine: Status: Acute <YURI Brothers Last Filed: 10/17/20 04:37> (11) Sepsis associated hypotension: Status: Acute <YURI Brothers Last Filed: 10/17/20 04:37> (12) Urinary tract infection: Status: Acute <Ingrid Dunbar PA-C - Last Filed: 10/17/20 04:37>
[2020-10-17] MEDS: 0.9 % Sodium Chloride 500 ML IVCONT (04:00)
[2020-10-17 04:10] LABS: MANUAL DIFF FLAG NO
[2020-10-17 04:13] LABS: Basophils Percent Auto 0.2 % (0-2); Eosinophils Absolute Auto 0.1 X10*3/uL (0.0-0.4); Eosinophils Percent Auto 0.7 % (0-4); Hematocrit 39.8 % (42-52); Hemoglobin 12.9 g/dl (14.0-18.0); Imm Gran Abs Auto 0.03 X10*3/uL (0.00-0.03); Imm Gran Pct Auto 0.3 % (0.0-0.4); Lymphocytes Absolute Auto 0.8 X10*3/uL (1.2-4.9); Lymphocytes Percent Auto 7.4 % (20-40); Mean Corpuscular HGB Conc 32.4 g/dl (31.0-36.0); Mean Corpuscular Hemoglobin 27.9 pg (27.0-33.0); Mean Corpuscular Volume 86.1 fL (80-98); Mean Platelet Volume 9.5 fL (9.4-12.4); Monocytes Absolute Auto 0.3 X10*3/uL (0.1-1.2); Monocytes Percent Auto 2.7 % (2-11); Neutrophils Absolute Auto 9.1 X10*3/uL (2.0-8.3); Neutrophils Percent Auto 88.7 % (45-73); Platelet Count 372 X10*3/uL (160-400); Red Blood Count 4.62 X10*6/uL (4.60-5.80); Red Cell Distribution Width 13.4 % (11.0-16.0); White Blood Count 10.2 X10*3/uL (4.8-10.8)
[2020-10-17 04:18] LABS: VBG Base Excess 2.9 mmol/L; VBG HCO3 31 mmol/L (22-26); VBG pCO2 63 mmHg; VBG pH 7.29 (7.32-7.43); VBG pO2 46 mmHg
[2020-10-17 04:23] LABS: Venous Blood Gas Refer to POC result
[2020-10-17] MEDS: Pantoprazole Sodium 80 MG in 0.9 % Sodium Chloride 80 ML 10 MG IV ×3 (04:27→23:54)
[2020-10-17] MEDS: propofoL 1,000 MG/100 ML VIAL 26.64 MG IVCONT ×5 (04:28→23:56)
[2020-10-17 04:41] LABS: ~Lactic Acid-LAB USE ONLY 4.2 mmol/L (0.5-2.0)
[2020-10-17 04:53] LABS: Glucose Urine UA NEG (NEG); Leukocyte Esterase Urine 3+ (NEG); Nitrite Urine NEG (NEG); Specific Gravity - Urine 1.025 (1.005-1.025); UACC Culture Trigger YES; Urine Blood TRACE (NEG); Urine Ketones NEG (NEG); Urine Protein TRACE MG/DL (NEG-TRACE)
[2020-10-17 04:54] LABS: Blood Urea Nitrogen 30 mg/dL (9-16); Carbon Dioxide 27 mmol/L (22-29); Creatinine Clr Calc Pharmacy 38.7; Estimated Glomerular Filt Rate 33; Glucose Random 251 mg/dL (60-115); Magnesium 1.8 mg/dL (1.6-2.6); Phosphorus 5.2 mg/dL (2.7-4.5)
[2020-10-17 04:55] LABS: Appearance Urine HAZY; Color Urine YELLOW
[2020-10-17 05:02] LABS: Anion Gap 19 (12-20); Chloride 96 mmol/L (96-108); Potassium 5.5 mmol/L (3.3-5.1); Sodium 138 mmol/L (135-145)
[2020-10-17] MEDS: Doxycycline Hyclate 100 MG in 0.9 % Sodium Chloride 250 ML 166.67 MG IV ×2 (05:02→18:50)
[2020-10-17 05:18] LABS: Bacteria Urine 2+ /LPF; Mucus Urine 1+ /LPF; Squamous Epithelial Cell Urine 1+ /LPF; WBC Urine 50-75 /HPF (0-4)
[2020-10-17 05:31] LABS: Amphetamine Screen Urine Not Detected (Not Detect); Barbiturates, Urine Not Detected (Not Detect); Benzodiazepines Screen Urine POSITIVE (Not Detect); Cannabinoid Screen Urine Not Detected (Not Detect); Cocaine Screen Urine Not Detected (Not Detect); Opiate Screen Urine POSITIVE (Not Detect); Phencyclidine Screen Urine Not Detected (Not Detect)
[2020-10-17 06:06] LABS: Adenovirus PCR Not Detected (Not Detect.); Bordetella parapertussis PCR Not Detected (Not Detect.); Bordetella pertussis PCR Not Detected (Not Detect.); Chlamydia pneumoniae PCR Not Detected (Not Detect.); Coronavirus 229E PCR Not Detected (Not Detect.); Coronavirus HKU1 PCR Not Detected (Not Detect.); Coronavirus NL63 PCR Not Detected (Not Detect.); Coronavirus OC43 PCR Not Detected (Not Detect.); Human metapneumovirus PCR Not Detected (Not Detect.); Influenza A PCR Not Detected (Not Detect.); Influenza B PCR Not Detected (Not Detect.); Mycoplasma pneumoniae PCR Not Detected (Not Detect.); Parainfluenza 1 PCR Not Detected (Not Detect.); Parainfluenza 2 PCR Not Detected (Not Detect.); Parainfluenza 3 PCR Not Detected (Not Detect.); Parainfluenza 4 PCR Not Detected (Not Detect.); RSV PCR Not Detected (Not Detect.); Rhino/Enterovirus PCR Not Detected (Not Detect.); SARS-CoV-2 PCR Not Detected (Not Detect.)
[2020-10-17 06:08] LABS: Reflex Lactate? 2 Y
[2020-10-17 09:00] LABS: ~Lactic Acid-LAB USE ONLY 3.1 mmol/L (0.5-2.0)
[2020-10-17] MEDS: Chlorhexidine Gluc Oral Rinse 15 ML MOUTHWASH BUCCAL ×3 (09:49→22:02)
[2020-10-17] MEDS: 0.9 % Sodium Chloride Flush 3 ML SYRINGE IVFLUSH ×3 (09:49→23:53)
[2020-10-17 10:35] LABS: VBG Base Excess 3.9 mmol/L; VBG HCO3 26 mmol/L (22-26); VBG pCO2 31 mmHg; VBG pH 7.52 (7.32-7.43); VBG pO2 131 mmHg
[2020-10-17 10:38] LABS: Venous Blood Gas Refer to POC result
[2020-10-17 11:29] LABS: Alanine Aminotransferase 29 U/L (0-40); Albumin Level 3.4 g/dL (3.5-5.0); Alkaline Phosphatase 85 U/L (39-117); Anion Gap 19 (12-20); Aspartate Amino Transferase 17 U/L (5-37); Blood Urea Nitrogen 27 mg/dL (9-16); Calcium 7.9 mg/dL (8.4-10.2); Carbon Dioxide 24 mmol/L (22-29); Chloride 100 mmol/L (96-108); Creatinine Clr Calc Pharmacy 43.8; Estimated Glomerular Filt Rate 38; Glucose Random 226 mg/dL (60-115); Sodium 138 mmol/L (135-145); Total Protein 5.9 g/dL (6.5-8.0)
--- NOTE | 2020-10-17 11:32 | P.CONGS_ITS ---
History of Present Illness Consult details Consult date: 10/17/20 Reason for consult: other (Lactic Acidosis and Shock) Requesting physician: Xuan Luna Narrative: Patient is a 70-yo M w/ diabetes, CHF, HTN, prior ID and constipation, who yesterday developed N/V, large BM on Fleet's Enema. After multiple vomiting of coffee ground emesis, his mental status deteriorated, and he was brought to E.D. with low O2 saturation, where he was promptly intubated. Over night, he has been resuscitated but he continued to have lactic acidosis and distended abdomen, thus Surgery consult was called b/c of CT findings of edematous bowel loops and distended SB loops in proximal/mid segments and collapsed bowel in distal SB. No transition point noted. Large bowel with constipation and SB loops with fecalization. Overnight, he has been on Levophed, 75% FiO2 with mid-90's O2 saturation. Lactate has been 4's, but the latest at 10 am was decreased to 3.1. Review of Systems Review of Systems: Yes unobtainable due to endotracheal tube PMFSH Past Medical History Medical History Borderline diabetic Hypertension Hyperthyroidism Myocardial infarct Urinary catheter in place Functional capacity: bed bound Social History Social History Household Members: Unknown / Unable to assess Housing: Unknown / Unable to assess Unable to assess alcohol history related to: Unknown Alcohol intake: unknown Smoking Status: Unknown if ever smoked Use of substances other than those prescribed or required for medical reasons: Unknown Substance Use Type: Unknown Last Used Substance: Unknown Currently Displaying Signs/Symptoms of Drug Intoxication Withdrawal: No Advance Directives: No Advance Directives Information Provided: No Meds Allergies Allergy/AdvReac Type Severity Reaction Status Date / Time No Known Allergies Allergy Verified 07/09/20 19:36 [No Known Allergies*] Active Medications: Current Medications Generic Name Dose Route Start Last Admin Trade Name Freq PRN Reason Stop Dose Admin Chlorhexidine Gluconate 15 ml 10/17/20 09:00 10/17/20 09:49 Chlorhexidine Gluc Oral Rinse 15 Ml Mouthwash BUCCAL 15 ml TID RICA Administration Propofol 1,000 mg in 100 mls @ 0 mls/hr 10/17/20 00:30 10/17/20 09:43 Diprivan IVCONT 40 mcg/kg/min .Q0M RICA 26.64 mls/hr Administration Protocol Per Protocol Norepinephrine Bitartrate 8 mg in 250 mls @ 0 mls/hr 10/17/20 01:15 10/17/20 01:26 Levophed IVCONT 0.07 mcg/kg/min .Q0M RICA 14.57 mls/hr Titration Protocol Per Protocol Pantoprazole Sodium 80 mg/ 100 mls @ 10 mls/hr 10/17/20 01:15 10/17/20 04:27 Sodium Chloride IV 8 mg/hr .Q10H RICA 10 mls/hr Administration 8 MG/HR Doxycycline Hyclate 100 mg/ 250 mls @ 166.67 mls/hr 10/17/20 06:30 10/17/20 08:06 Sodium Chloride IV Infused BID@0630,1630 RICA Infusion Sodium Chloride 3 ml 10/17/20 08:00 10/17/20 09:49 0.9 % Sodium Chloride Flush 3 Ml Syringe IVFLUSH 3 ml QSHIFT RICA Administration Physical Exam Vital Signs: Vital Signs: Last Vital Signs Temp 101.8 F H 10/17/20 11:00 Pulse 92 10/17/20 11:00 Resp 20 10/17/20 11:00 BP 158/67 H 10/17/20 11:00 Pulse Ox 96 10/17/20 11:00 Body Mass Index 39.9 GI: Other: Distended abdomen. Moderately soft. Pt intubated and thus exam u nreliable. No mottling of skin. Results Labs Result diagrams: 10/17/20 03:55 10/17/20 10:17 Labs: Abnormal lab results 10/16/20 10/17/20 10/17/20 Range/Units 23:48 00:35 00:35 WBC 13.9 H (4.8-10.8) X10*3/uL Hgb 12.8 L (14.0-18.0) g/dl Hct 39.3 L (42-52) % Neut % (Auto) 84.4 H (45-73) % Lymph % (Auto) 6.7 L (20-40) % Lymph # (Auto) 0.9 L (1.2-4.9) X10*3/uL Abs Immat Gran (auto) 0.05 H (0.00-0.03) X10*3/uL Absolute Neuts (auto) 11.8 H (2.0-8.3) X10*3/uL VBG pH (7.32-7.43) VBG HCO3 (22-26) mmol/L Potassium 5.5 H (3.3-5.1) mmol/L Chloride 93 L (96-108) mmol/L Carbon Dioxide 34 H (22-29) mmol/L BUN 28 H (9-16) mg/dL Creatinine 2.14 H (0.5-1.4) mg/dL POC Glucose 222 H (60-115) mg/dL Random Glucose 232 H (60-115) mg/dL Lactic Acid (0.5-2.0) mmol/L Lactic Acid Fup @ 2Hr (0.5-2.0) mmol/L Lactic Acid Fup @ 4Hr (0.5-2.0) mmol/L Calcium (8.4-10.2) mg/dL Phosphorus (2.7-4.5) mg/dL Total Protein (6.5-8.0) g/dL Albumin (3.5-5.0) g/dL Ur Leukocyte Esterase (NEG) Urine RBC (0) /HPF Urine WBC (0-4) /HPF Urine Opiates Screen (Not Detect) U Benzodiazepines Scrn (Not Detect) 10/17/20 10/17/20 10/17/20 Range/Units 00:35 01:11 03:55 WBC (4.8-10.8) X10*3/uL Hgb (14.0-18.0) g/dl Hct (42-52) % Neut % (Auto) (45-73) % Lymph % (Auto) (20-40) % Lymph # (Auto) (1.2-4.9) X10*3/uL Abs Immat Gran (auto) (0.00-0.03) X10*3/uL Absolute Neuts (auto) (2.0-8.3) X10*3/uL VBG pH (7.32-7.43) VBG HCO3 34 H (22-26) mmol/L Potassium (3.3-5.1) mmol/L Chloride (96-108) mmol/L Carbon Dioxide (22-29) mmol/L BUN (9-16) mg/dL Creatinine (0.5-1.4) mg/dL POC Glucose (60-115) mg/dL Random Glucose (60-115) mg/dL Lactic Acid 2.4 H* (0.5-2.0) mmol/L Lactic Acid Fup @ 2Hr 4.2 H* (0.5-2.0) mmol/L Lactic Acid Fup @ 4Hr (0.5-2.0) mmol/L Calcium (8.4-10.2) mg/dL Phosphorus (2.7-4.5) mg/dL Total Protein (6.5-8.0) g/dL Albumin (3.5-5.0) g/dL Ur Leukocyte Esterase (NEG) Urine RBC (0) /HPF Urine WBC (0-4) /HPF Urine Opiates Screen (Not Detect) U Benzodiazepines Scrn (Not Detect) 10/17/20 10/17/20 10/17/20 Range/Units 03:55 03:55 04:12 WBC (4.8-10.8) X10*3/uL Hgb 12.9 L (14.0-18.0) g/dl Hct 39.8 L (42-52) % Neut % (Auto) 88.7 H (45-73) % Lymph % (Auto) 7.4 L (20-40) % Lymph # (Auto) 0.8 L (1.2-4.9) X10*3/uL Abs Immat Gran (auto) (0.00-0.03) X10*3/uL Absolute Neuts (auto) 9.1 H (2.0-8.3) X10*3/uL VBG pH 7.29 L (7.32-7.43) VBG HCO3 31 H (22-26) mmol/L Potassium 5.5 H (3.3-5.1) mmol/L Chloride (96-108) mmol/L Carbon Dioxide (22-29) mmol/L BUN 30 H (9-16) mg/dL Creatinine 2.01 H (0.5-1.4) mg/dL POC Glucose (60-115) mg/dL Random Glucose 251 H (60-115) mg/dL Lactic Acid (0.5-2.0) mmol/L Lactic Acid Fup @ 2Hr (0.5-2.0) mmol/L Lactic Acid Fup @ 4Hr (0.5-2.0) mmol/L Calcium 8.0 L (8.4-10.2) mg/dL Phosphorus 5.2 H (2.7-4.5) mg/dL Total Protein (6.5-8.0) g/dL Albumin (3.5-5.0) g/dL Ur Leukocyte Esterase (NEG) Urine RBC (0) /HPF Urine WBC (0-4) /HPF Urine Opiates Screen (Not Detect) U Benzodiazepines Scrn (Not Detect) 10/17/20 10/17/20 10/17/20 Range/Units 04:39 04:39 08:04 WBC (4.8-10.8) X10*3/uL Hgb (14.0-18.0) g/dl Hct (42-52) % Neut % (Auto) (45-73) % Lymph % (Auto) (20-40) % Lymph # (Auto) (1.2-4.9) X10*3/uL Abs Immat Gran (auto) (0.00-0.03) X10*3/uL Absolute Neuts (auto) (2.0-8.3) X10*3/uL VBG pH (7.32-7.43) VBG HCO3 (22-26) mmol/L Potassium (3.3-5.1) mmol/L Chloride (96-108) mmol/L Carbon Dioxide (22-29) mmol/L BUN (9-16) mg/dL Creatinine (0.5-1.4) mg/dL POC Glucose (60-115) mg/dL Random Glucose (60-115) mg/dL Lactic Acid (0.5-2.0) mmol/L Lactic Acid Fup @ 2Hr (0.5-2.0) mmol/L Lactic Acid Fup @ 4Hr 3.1 H* (0.5-2.0) mmol/L Calcium (8.4-10.2) mg/dL Phosphorus (2.7-4.5) mg/dL Total Protein (6.5-8.0) g/dL Albumin (3.5-5.0) g/dL Ur Leukocyte Esterase 3+ H (NEG) Urine RBC 5-9 H (0) /HPF Urine WBC 50-75 H (0-4) /HPF Urine Opiates Screen POSITIVE H (Not Detect) U Benzodiazepines Scrn POSITIVE H (Not Detect) 10/17/20 10/17/20 10/17/20 Range/Units 10:17 10:17 10:28 WBC (4.8-10.8) X10*3/uL Hgb (14.0-18.0) g/dl Hct (42-52) % Neut % (Auto) (45-73) % Lymph % (Auto) (20-40) % Lymph # (Auto) (1.2-4.9) X10*3/uL Abs Immat Gran (auto) (0.00-0.03) X10*3/uL Absolute Neuts (auto) (2.0-8.3) X10*3/uL VBG pH 7.52 H (7.32-7.43) VBG HCO3 (22-26) mmol/L Potassium (3.3-5.1) mmol/L Chloride (96-108) mmol/L Carbon Dioxide (22-29) mmol/L BUN 27 H (9-16) mg/dL Creatinine 1.76 H (0.5-1.4) mg/dL POC Glucose (60-115) mg/dL Random Glucose 226 H (60-115) mg/dL Lactic Acid 3.0 H* (0.5-2.0) mmol/L Lactic Acid Fup @ 2Hr (0.5-2.0) mmol/L Lactic Acid Fup @ 4Hr (0.5-2.0) mmol/L Calcium 7.9 L (8.4-10.2) mg/dL Phosphorus (2.7-4.5) mg/dL Total Protein 5.9 L (6.5-8.0) g/dL Albumin 3.4 L (3.5-5.0) g/dL Ur Leukocyte Esterase (NEG) Urine RBC (0) /HPF Urine WBC (0-4) /HPF Urine Opiates Screen (Not Detect) U Benzodiazepines Scrn (Not Detect) Short CBC 03/07/21 03/07/21 Range/Units 00:35 03:55 WBC 13.9 H 10.2 (4.8-10.8) X10*3/uL Hgb 12.8 L 12.9 L (14.0-18.0) g/dl Hct 39.3 L 39.8 L (42-52) % Plt Count 340 372 (160-400) X10*3/uL BMP 10/17/20 10/17/20 10/17/20 00:35 03:55 10:17 Sodium 138 138 138 Potassium 5.5 H 5.5 H 5.0 Chloride 93 L 96 100 Carbon Dioxide 34 H 27 24 BUN 28 H 30 H 27 H Creatinine 2.14 H 2.01 H 1.76 H Calcium 8.5 8.0 L 7.9 L Liver Function 10/17/20 10/17/20 Range/Units 00:35 10:17 Total Bilirubin 0.9 1.0 (0.0-1.0) mg/dL Direct Bilirubin 0.3 (0.0-0.5) mg/dL AST 22 17 (5-37) U/L ALT 33 29 (0-40) U/L Alkaline Phosphatase 104 85 (39-117) U/L Albumin 3.7 3.4 L (3.5-5.0) g/dL Urine 10/17/20 Range/Units 04:39 Urine Color YELLOW Urine Appearance HAZY Urine pH 6.0 (5.0-8.0) Ur Specific [place] 1.025 (1.005-1.025) Urine Protein TRACE (NEG-TRACE) MG/DL Urine Glucose (UA) NEG (NEG) MG/DL All other labs normal. Assessment and Plan (1) Abdomen enlarged: Problem details: Patient's abdomen is distended but it's not clear how much this is due to his chronic constipation. Fecalization of SB and large bowel filled with stool on CT is confirmatory of his overall chronic gastrointestinal motility issue. CT showed no clear transition point. Hard to interpret the CT findings of small intestine at this point. Large gastric drainage (> 2 L) with NG intubation suggests chronic gastric ileus, vs. any mechcanical obstruction which is not c/w CT finding. Given the overall clinical data, any consideration of exploratory laparotomy to assess ischemic bowel would be of low yield, while the risk to his survival would be significant, thus the overall benefit-risk ratio would be low at this stage. His immediate main issue seems to be respiratory in nature, with mid-90's O2 saturation with 75% FiO2 ventilation and CT findings of bilateral air space disease. Status: Acute For now, I would recommend the CCM team to continue their current sup portive care with ventilation and respiratory care, inotropic support as needed, and treatment of his shock physiology. We will follow with you. If there is any major change or worsening of clinical status, please let us know immediately. Thank you for the consult. Procedures Date of Service Date of Service: 10/17/20
--- NOTE | 2020-10-17 12:04 | MHC.CM.PN ---
Addendum entered by Tory Callahan RN 10/17/20 16:45: Pt's caregiver Romaine Lomas did report to this CM she met pt while she was working at [facility][1] while he was a pt there during 11:45am phone call. Addendum entered by Tory Callahan RN 10/17/20 16:22: ICU staff notified of issue with HCP. Addendum entered by Tory Callahan RN 10/17/20 16:07: Pt's caregiver Kristopher Lomas dropped off HCP and guardianship papers to at approximately 3:50pm, HCP is invalid due to not being dated. Guardianship paper looks to be typed up, name of guardian is misspelled and does not appear to be a legal document. Pt's medical transcription radiology also has a Will with pts name on it however CM did not look at document. Tea And Spice Supervisor also reports she doesn't want any information given out to anyone who calls however it does not appear she has any legal say. CM to notify recycling operations manager of issue. Original Note: IMM 10/17/20, EMR REVIEWED, PT ADMITTED TO ICU W/AMS, HYPOXIA, ARF, GI BLEED AND MULTIFOCAL PNA, CM SPOKE WITH HCP JOSE G AT 11:40AM JOSE G ([phone]) WHO REPORTS PT WAS HER BOYFRIEND AND VERIFIED PT HAS 24HR CARE HOWEVER IS NO LONGER INVOLVED,, CM CONTACTED NEXT OF KIN LISTED IN CHART ARELI LOMAS AT 11:45AM ([phone]) WHO REPORTS SHE IS THE NEW HCP AND PTS MOTOR VEHICLES SUPERVISOR AND WILL DROP OFF PAPERWORK LATER TODAY, MOTOR VEHICLES SUPERVISOR/HCP REPORTS PT HAS 24HR CARE, PRIVATE PAY AND PT IS DEPENDENT WITH ALL CARE EXCEPT EATING, PT IS A 1-2 ASSIST IN AND OUT OF W/C, PT'S MOTOR VEHICLES SUPERVISOR/HCP REPORTS PT HAD STARTED REFUSING PHYSICAL THERAPY ABOUT A YEAR AGO AND HAS BEEN C MUSING A W/C EVER SINCE, PT IS CURRENT WITH [employer] [facility], PER MOTOR VEHICLES SUPERVISOR/HCP SHE WOULD LIKE HIM HOME AFTER D/C AND NOT IN STR. PT WAS AT [facility] IN THE PAST. DISCHARGE PLAN: HOME W/RESUMP OF SERVICES VS STR, MOTOR VEHICLES SUPERVISOR VS BLS FOR TRANSPORT PCP: DR. PETER HCP: ARELI LOMAS [phone], COPY REQUESTED MOHANMARBIN
[2020-10-17 12:52] LABS: Reflex Lactate? Lactic Acid Added
[2020-10-17] MEDS: propofoL 1,000 MG/100 ML VIAL 23.31 MG IVCONT ×2 (13:22→18:00)
[2020-10-17 14:09] LABS: ~Lactic Acid-LAB USE ONLY 2.8 mmol/L (0.5-2.0)
[2020-10-17 15:30] LABS: Reflex Lactate? 2 Y
[2020-10-17 16:49] LABS: ~Lactic Acid-LAB USE ONLY 3.6 mmol/L (0.5-2.0)
--- NOTE | 2020-10-17 20:44 | PC.NURSE ---
Assumed care at 0700. Patient still intubated, sedated on propofol. Initially pupils were fixed, titrated propofol down 40 to 30; patient awoke, followed commands, gripped hands; uptitrated propofol to 40 again for vent synchrony, and patient still with +cough/+gag, pupils reactive; arousable to light pain. #8 ett 26 cm at the lip AC settings 20; 500; peep 8; minute volumes about 10; fio2 titrated 75% down to 70%. Inline secretions moderate thin brown, oral secretions moderate thin brown and pink tinged. Lung sounds clear. SpO2 in 90's. Sinus rhythm on monitor. Able to titrate levophed to off from 0.07, off at 16:00, md aware. Sbp now running high; 130-161. CVP: 15 down to 11. Temperature down from 102.4 to 100.2; no tylenol per MD. Patient has been raygoza-cultured since fever onset per report. On Doxycycline and zosyn. Urine outputs about 30-80 cc/hour. OGT to low intermittent wall suction, questioned with MD, but for ? ischemic bowel. Patient has put out 275 brownish liquid from this over 12 hours. Skin noted to have pink blanchable areas on bilateral heels; foams applied, heelbos obtained. Updated veronika Stokes obtained message from ALICIA that Divya may not be HCP but is still next of kin. Discharge records from [facility] August obtained and has reviewed them.
[2020-10-17 21:22] LABS: Anion Gap 13 (12-20); Blood Urea Nitrogen 22 mg/dL (9-16); Calcium 7.7 mg/dL (8.4-10.2); Carbon Dioxide 28 mmol/L (22-29); Chloride 103 mmol/L (96-108); Creatinine Clr Calc Pharmacy 56.7; Estimated Glomerular Filt Rate 52; Glucose Random 152 mg/dL (60-115); Potassium 3.7 mmol/L (3.3-5.1); Sodium 140 mmol/L (135-145)
[2020-10-17] MEDS: Lactulose 20 GM/30 ML SOLUTION PO (22:02)
[2020-10-17] MEDS: Losartan Potassium 50 MG TABLET 100 MG PO (22:03)
[2020-10-17] MEDS: Metoprolol Tartrate 100 MG TABLET PO (22:04)
[2020-10-18] VITALS (31 sets, daily range): BP systolic 93–180; BP diastolic 43–81; PULSE 58–98; RESP 20–22; TEMP 36.5–37.5; O2SAT 40–98; BMI 39.9
--- NOTE | 2020-10-18 01:06 | PC.NURSE ---
SHIFT EVAL 7P-7A: Patient remains intubated, tolerating AC vent settings. Patient does not tolerate repositioning well, high peak pressures when laying flat. In-line suctioning moderate amt brown, thick sputum. BP became elevated, worse when changing propofol bottles, BP up to 160's to 170's systolic from [id number]. BP cycling every 10 min, once sedation stabilized, BP improved back to 130's sytolic. Patient had been off Levo since prev shift, Cande GARIBAY restarted BP meds. Lactulose & BP meds given via OG tube, clamped for 30min post medicaid eligibility specialist. Repos Q2H. blood cultures came back +, reported to Cande GARIBAY - already on ABX, no new orders at this time. 250 ml output clear/brown emesis from OG tube 7p-11p.
[2020-10-18] MEDS: Piperacillin Sodium/Tazobactam 3.375 GM in 0.9 % Sodium Chloride 50 ML IV ×4 (02:47→20:51)
[2020-10-18] MEDS: propofoL 1,000 MG/100 ML VIAL 26.64 MG IVCONT ×6 (03:30→20:53)
[2020-10-18 05:41] LABS: Venous Blood Gas Refer to POC result
[2020-10-18 05:42] LABS: VBG Base Excess 6.6 mmol/L; VBG HCO3 29 mmol/L (22-26); VBG pCO2 34 mmHg; VBG pH 7.53 (7.32-7.43); VBG pO2 63 mmHg
[2020-10-18] MEDS: Doxycycline Hyclate 100 MG in 0.9 % Sodium Chloride 250 ML 166.67 MG IV (05:46)
[2020-10-18 05:58] LABS: MANUAL DIFF FLAG NO
[2020-10-18 06:05] LABS: Basophils Percent Auto 0.2 % (0-2); Eosinophils Absolute Auto 0.4 X10*3/uL (0.0-0.4); Hematocrit 30.9 % (42-52); Hemoglobin 10.2 g/dl (14.0-18.0); Imm Gran Abs Auto 0.03 X10*3/uL (0.00-0.03); Imm Gran Pct Auto 0.3 % (0.0-0.4); Lymphocytes Absolute Auto 1.8 X10*3/uL (1.2-4.9); Lymphocytes Percent Auto 19.3 % (20-40); Mean Corpuscular Hemoglobin 27.7 pg (27.0-33.0); Mean Platelet Volume 9.6 fL (9.4-12.4); Monocytes Absolute Auto 0.6 X10*3/uL (0.1-1.2); Monocytes Percent Auto 6.3 % (2-11); Neutrophils Absolute Auto 6.4 X10*3/uL (2.0-8.3); Neutrophils Percent Auto 69.9 % (45-73); Platelet Count 225 X10*3/uL (160-400); Red Blood Count 3.68 X10*6/uL (4.60-5.80); Red Cell Distribution Width 13.8 % (11.0-16.0); White Blood Count 9.1 X10*3/uL (4.8-10.8)
[2020-10-18 06:20] LABS: INTERNATIONAL NORM RATIO 1.2 (0.9-1.1); Prothrombin Time 14.7 SEC (10.8-13.0)
[2020-10-18 06:23] LABS: Partial Thromboplastin Time 27.3 SEC (24.1-38.0)
[2020-10-18 06:52] LABS: Alanine Aminotransferase 22 U/L (0-40); Albumin Level 3.2 g/dL (3.5-5.0); Alkaline Phosphatase 72 U/L (39-117); Aspartate Amino Transferase 13 U/L (5-37); Bilirubin Direct 0.4 mg/dL (0.0-0.5); Bilirubin Total 0.8 mg/dL (0.0-1.0); Blood Urea Nitrogen 21 mg/dL (9-16); Calcium 7.9 mg/dL (8.4-10.2); Creatinine Clr Calc Pharmacy 59.3; Estimated Glomerular Filt Rate 54; Glucose Random 141 mg/dL (60-115); Phosphorus 2.9 mg/dL (2.7-4.5); Total Protein 5.5 g/dL (6.5-8.0)
[2020-10-18 07:50] LABS: Anion Gap 14 (12-20); Carbon Dioxide 27 mmol/L (22-29); Chloride 103 mmol/L (96-108); Potassium 3.3 mmol/L (3.3-5.1); Sodium 141 mmol/L (135-145)
--- NOTE | 2020-10-18 09:32 | P.PNGS_ITS ---
Subjective Subjective Date of Service: 10/18/20 Interval history: History reviewed Patient has had some abdominal distension admission; with sepsis There was concern for see me bowel because of elevated lactate Lactate however has decreased Blood pressure better Good urine output Physical Exam Vital Signs: Vital Signs: Last Vital Signs Temp 98.4 F 10/18/20 09:00 Pulse 71 10/18/20 09:00 Resp 20 10/18/20 09:00 BP 151/61 H 10/18/20 09:00 Pulse Ox 93 10/18/20 09:00 Body Mass Index 39.9 Chemistry 10/17/20 10/17/20 10/17/20 00:35 03:55 10:17 Sodium 138 138 138 Potassium 5.5 H 5.5 H 5.0 Carbon Dioxide 34 H 27 24 BUN 28 H 30 H 27 H Creatinine 2.14 H 2.01 H 1.76 H Calcium 8.5 8.0 L 7.9 L Phosphorus 5.2 H 10/17/20 10/18/20 20:37 05:35 Sodium 140 141 Potassium 3.7 D 3.3 Carbon Dioxide 28 27 BUN 22 H 21 H Creatinine 1.36 1.30 Calcium 7.7 L 7.9 L Phosphorus 2.9 Hematology 10/17/20 10/17/20 10/18/20 00:35 03:55 05:35 WBC 13.9 H 10.2 9.1 Hgb 12.8 L 12.9 L 10.2 L D Plt Count 340 372 225 D Urinalysis 10/17/20 04:39 Urine Color YELLOW Urine Appearance HAZY Urine pH 6.0 Ur Specific Gravit y 1.025 Urine Protein TRACE Urine Glucose (UA) NEG Urine Ketones NEG Urine Blood TRACE Urine Nitrite NEG Ur Leukocyte [place]lem ase 3+ H Urine RBC 5-9 H Urine WBC 50-75 H Ur Squamous Epith Cells 1+ Const: Other: Remains on the ventilator Resp: Other: Intubated, on vent support Cardio: Rhythm: regular rhythm GI: Other: Distended but soft, no guarding Progress Note: A&P Assessment and plan (1) Ileus: Status: Acute Assessment and Plan: Unlikely to have ischemic bowel Elevated lactate from sepsis, not from bowel ischemia Abdomen soft and benign Consistent with ileus NG tube in place Care as per the accounts payable payroll coordinator Will follow the patient Fall Risk Details Current Medications: Current Medications Generic Name Dose Route Start Last Admin Trade Name Freq PRN Reason Stop Dose Admin Chlorhexidine Gluconate 15 ml 10/17/20 09:00 10/17/20 22:02 Chlorhexidine Gluc Oral Rinse 15 Ml Mouthwash BUCCAL 15 ml TID RICA Administration Propofol 1,000 mg in 100 mls @ 0 mls/hr 10/17/20 00:30 10/18/20 07:32 Diprivan IVCONT 40 mcg/kg/min .Q0M RICA 26.64 mls/hr Administration Protocol Per Protocol Pantoprazole Sodium 80 mg/ 100 mls @ 10 mls/hr 10/17/20 01:15 10/17/20 23:54 Sodium Chloride IV 8 mg/hr .Q10H RICA 10 mls/hr Administration 8 MG/HR Piperacillin Sod/Tazobactam 50 mls @ 100 mls/hr 10/17/20 14:00 10/18/20 08:27 Sod 3.375 gm/ Sodium Chloride IV 100 mls/hr Q6H RICA Administration Sodium Chloride 3 ml 10/17/20 08:00 10/18/20 07:37 0.9 % Sodium Chloride Flush 3 Ml Syringe IVFLUSH Not Given QSHIFT RICA Time Spent With Patient Time: Total time spent is greater than 50% in coordination of care (as documented) at patient's floor/unit and/or counseling patient: Time with patient: 15 - 24 minutes Procedures Date of Service Date of Service: 10/18/20
[2020-10-18] MEDS: Chlorhexidine Gluc Oral Rinse 15 ML MOUTHWASH BUCCAL ×3 (09:42→20:53)
[2020-10-18] MEDS: Pantoprazole Sodium 80 MG in 0.9 % Sodium Chloride 80 ML 10 MG IV ×2 (09:47→20:56)
--- NOTE | 2020-10-18 10:01 | P.CDIC_ITS ---
CDI Concurrent Query Service Date: 10/18/20 Documentation Clarification: Please clarify if you are treating a proba ble/suspected/likely or confirmed: Malnutrition, mild, moderate or severe (txt, rule out) Please specify if known or other Provider Response: Mild Protein-Calorie Malnutrition PLEASE DO NOT DELETE/MODIFY EXISTING CONTENT Additional information is needed in order to code to the highest accuracy and appropriate Severity of Illness (SOI). Please clarify the information noted below in your progress notes and discharge summary. Risk Factors/Clinical Indicators/Treatments ED: General appearance - distress is severe and respiratory, ill appearing, lethargic, vomiting, hypotensive. Nutritional appearance - malnourished. CDS: Essie Fontaine CCS, CDIS Contact Number: [phone]. [phone] Please Review the information above and exercise your independent professional judgment in responding to the query. If you concur, pleas document in the PROGRESS NOTES and DISCHARGE SUMMARY. If you do not agree with the query, please document in the query above. THIS QUERY IS PART OF THE PERMANENT MEDICAL RECORD
--- NOTE | 2020-10-18 10:19 | PC.NURSE ---
0900 Report given to Favio RN at bedside. Assisted turn and reposition patient to right side (previously on left) Buttocks intact, slightly red but blanchable. Moisturizing cream applied. Foam dressing replaced to yaniv heels. Skin intact and blanchable. Bunny boots also present. Sequential boots in place. +Pitting edema noted to BUE and BLE. Adequately sedated on propofol at 40 mcg/kg/min. Vent settings remain the same (20/500/70%/8.0. Resp therapist suctioned patient for thick secretions. Pt tolerated well.
[2020-10-18] MEDS: niCARdipine HCL 25 MG in 0.9 % Sodium Chloride 250 ML 50 MG IVCONT (11:54)
--- NOTE | 2020-10-18 13:55 | MHC.CM.PN ---
regarding the question of validity of HCP and guardianship document furnished by DAYANA - jt thibodeaux (contact lens technician in EMR) a case was opened c protective services - [facility] at [phone] and a mandated manager agricultural form c supporting documentation was completed and faxed to [facility] elder abuse at [phone]. CM to cont. to follow.
[2020-10-18] MEDS: niCARdipine HCL 25 MG in 0.9 % Sodium Chloride 250 ML 130 MG IVCONT (15:00)
--- NOTE | 2020-10-18 15:18 | P.PNCC_ITS ---
Subjective Subjective Date of Service: 10/18/20 Interval History: 70-year-old gentleman with underlying history of diabetes, congestive heart failure, hypertension, CAD status post [place], chronic constipation, prior aspiration events admitted on 10/17/2020 with alteration of mental status, hypoxia, Gram-negative urinary tract infection, and possible aspiration episode requiring transfer to intensive care, intubation, and ventilatory support. CT abdomen pelvis significant for partial small-bowel obstruction versus ileus, evaluated by General surgery and being managed conservatively. No events overnight. FiO2 requirements improving. Physical Exam Vital Signs: Vital Signs: Last Vital Signs Temp 98.6 F 10/18/20 14:00 Pulse 96 10/18/20 14:00 Resp 20 10/18/20 14:00 BP 158/70 H 10/18/20 14:00 Pulse Ox 88 L 10/18/20 14:00 Body Mass Index 39.9 Const: General: no acute distress and other (Sedated on the vent) Eyes: Sclerae: sclerae normal EOM: EOMs intact bilaterally Neck: Neck: Yes no lymphadenopathy, Yes trachea midline and Yes supple Resp: Auscultation: crackles on the right in the lower lung smith Cardio: Rate: regular rate Rhythm: regular rhythm Heart sounds: no gallops, no murmurs and no rubs GI: Palpation (GI): Soft to palpation and Other GI palpation findings present ( Nontender, distended) Auscultation: normal bowel sounds Extrem: General: No clubbing, No cyanosis and Yes edema (Trace bilateral) Objective Data Labs CBC & Chem 7: 10/18/20 05:35 10/18/20 05:35 Labs: Laboratory Results - last 24 hr 10/17/20 10/17/20 10/17/20 15:51 20:37 20:37 WBC RBC Hgb Hct MCV MCH MCHC RDW Plt Count MPV Immature Gran % (Auto) Neut % (Auto) Lymph % (Auto) [place] % (Auto) Eos % (Auto) Baso % (Auto) Lymph # (Auto) [place] # (Auto) Eos # (Auto) Baso # (Auto) Abs Immat Gran (auto) Absolute Neuts (auto) Absolute Nucleated RBC Nucleated RBC % (auto) PT INR APTT VBG pH VBG pCO2 VBG pO2 VBG HCO3 VBG O2 Saturation VBG Base Excess Sodium 140 Potassium 3.7 D Chloride 103 Carbon Dioxide 28 Anion Gap 13 BUN 22 H Creatinine 1.36 Estim Creat Clear Calc 56.7 Estimated GFR 52 Random Glucose 152 H Lactic Acid 2.0 Lactic Acid Fup @ 4Hr 3.6 H* Calcium 7.7 L Phosphorus Magnesium Total Bilirubin Direct Bilirubin AST ALT Alkaline Phosphatase Total Protein Albumin 10/18/20 10/18/20 10/18/20 05:35 05:35 05:35 WBC 9.1 RBC 3.68 L D Hgb 10.2 L D Hct 30.9 L D MCV 84.0 MCH 27.7 MCHC 33.0 RDW 13.8 Plt Count 225 D MPV 9.6 Immature Gran % (Auto) 0.3 Neut % (Auto) 69.9 Lymph % (Auto) 19.3 L [place] % (Auto) 6.3 Eos % (Auto) 4.0 Baso % (Auto) 0.2 Lymph # (Auto) 1.8 [place] # (Auto) 0.6 Eos # (Auto) 0.4 Baso # (Auto) 0.0 Abs Immat Gran (auto) 0.03 Absolute Neuts (auto) 6.4 Absolute Nucleated RBC 0.000 Nucleated RBC % (auto) 0.0 PT 14.7 H INR 1.2 H APTT 27.3 VBG pH VBG pCO2 VBG pO2 VBG HCO3 VBG O2 Saturation VBG Base Excess Sodium 141 Potassium 3.3 Chloride 103 Carbon Dioxide 27 Anion Gap 14 BUN 21 H Creatinine 1.30 Estim Creat Clear Calc 59.3 Estimated GFR 54 Random Glucose 141 H Lactic Acid Lactic Acid Fup @ 4Hr Calcium 7.9 L Phosphorus 2.9 Magnesium 2.0 Total Bilirubin 0.8 Direct Bilirubin 0.4 AST 13 ALT 22 Alkaline Phosphatase 72 Total Protein 5.5 L Albumin 3.2 L 10/18/20 05:36 WBC RBC Hgb Hct MCV MCH MCHC RDW Plt Count MPV Immature Gran % (Auto) Neut % (Auto) Lymph % (Auto) [place] % (Auto) Eos % (Auto) Baso % (Auto) Lymph # (Auto) [place] # (Auto) Eos # (Auto) Baso # (Auto) Abs Immat Gran (auto) Absolute Neuts (auto) Absolute Nucleated RBC Nucleated RBC % (auto) PT INR APTT VBG pH 7.53 H VBG pCO2 34 VBG pO2 63 VBG HCO3 29 H VBG O2 Saturation 88.0 VBG Base Excess 6.6 Sodium Potassium Chloride Carbon Dioxide Anion Gap BUN Creatinine Estim Creat Clear Calc Estimated GFR Random Glucose Lactic Acid Lactic Acid Fup @ 4Hr Calcium Phosphorus Magnesium Total Bilirubin Direct Bilirubin AST ALT Alkaline Phosphatase Total Protein Albumin Microbiology Microbiology Results: Microbiology 10/17/20 Unknown Urine clean catch - Clean Catch Midstream Urine Culture - Preliminary Gram negative kelly 10/17/20 00:34 Blood - Arterial Line Blood Culture - Final Coag negative Staphylococcus 10/17/20 00:34 Blood - Arterial Line Blood Culture - Preliminary No growth after 24 hours. Progress Note: A&P Assessment and plan (1) Ileus: Status: Acute Assessment and Plan: Assessment: 70-year-old gentleman with underlying history of congestive heart failure, diabetes mellitus, pulmonary aspiration, chronic constipation, and coronary artery disease admitted on 10/17/2020 with alteration of mental status, Gram-negative urinary tract infection, and possible pulmonary aspiration requiring ventilatory support. Plan: Neuro: No acute issues. Cardiac: No acute issues. Underlying history of congestive heart failure. Pulmonary: Acute hypoxic respiratory failure likely secondary to pulmonary aspiration requiring ventilatory support. FiO2 requirements improving. Continue to titrate off ventilatory support as tolerated. Renal: No acute issues. Endo: No acute issues. Underlying diabetes mellitus. GI: Ileus versus partial small-bowel obstruction. Evaluated by General surgery and no immediate intervention is required. Continue with OG decompression of gastric content. Possible upper GI bleed, continues on IV PPI. ID: Gram-negative urinary tract infection. Continue on Zosyn until speciation and susceptibility is available. Heme/Onc: No acute issues. Psych: No acute issues. Miscellaneous: No acute issues. Prophylaxis: Pneumatic compression, ppi Diet: Nothing by mouth Critical care time spent: 60 minutes (2) Urinary tract infection: Status: Acute (3) Altered mental status: Status: Acute (4) Acute respiratory failure with hypoxia: Status: Acute (5) Pulmonary aspiration: Status: Acute Time Spent With Patient Time: Total time spent is greater than 50% in coordination of care (as documented) at patient's floor/unit and/or counseling patient: Total time spent with greater than 50% in coordination of care (as documented) at patient's floor/unit and/or counseling patient:: 0 Critical Care Time Critical Care Time (minutes): 60
--- NOTE | 2020-10-18 16:33 | PC.NURSE ---
assumed care at 0900am. patient was ventilating well, still on AC settings 20;500;peep 8; fio2 titrated down from 70% to 40% this shift, with spo2 staying 94-97%. Continues to have have thin browninsh inline and oral secretions. LS continue to be clear to auscultation. Sinus Rhythm on monitor. High blood pressures, sbp increased from 160's-180; home po bp meds were discontinued, discussed with MD, and new order for cardene, started and titirated up to 12.5; bp down to 130's currently. Some brown bileous drainage from ogt, still to low wall suction. Patient continues on propofol for sedation, is arousable to noxious stimuli, pulls on restraints, +cough/+gag. Patient with pink blanchable heels bilaterally, heelbos and foams in use.
[2020-10-18] MEDS: 0.9 % Sodium Chloride Flush 3 ML SYRINGE IVFLUSH ×2 (17:25→23:32)
[2020-10-18] MEDS: niCARdipine HCL 25 MG in 0.9 % Sodium Chloride 250 ML 26 MG IVCONT (20:53)
[2020-10-19] VITALS (40 sets, daily range): BP systolic 103–173; BP diastolic 44–107; PULSE 67–126; RESP 12–29; TEMP 36.4–37.3; O2SAT 85–97; BMI 40.8
[2020-10-19] MEDS: propofoL 1,000 MG/100 ML VIAL 26.64 MG IVCONT (00:21)
[2020-10-19] MEDS: Piperacillin Sodium/Tazobactam 3.375 GM in 0.9 % Sodium Chloride 50 ML IV ×4 (02:42→19:57)
[2020-10-19] MEDS: niCARdipine HCL 25 MG in 0.9 % Sodium Chloride 250 ML 52 MG IVCONT ×3 (03:27→13:58)
[2020-10-19] MEDS: Pantoprazole Sodium 80 MG in 0.9 % Sodium Chloride 80 ML 10 MG IV (03:29)
[2020-10-19] MEDS: propofoL 1,000 MG/100 ML VIAL 33.3 MG IVCONT ×3 (03:29→08:53)
[2020-10-19 05:31] LABS: MANUAL DIFF FLAG NO
[2020-10-19 05:33] LABS: Basophils Percent Auto 0.4 % (0-2); Eosinophils Absolute Auto 0.5 X10*3/uL (0.0-0.4); Eosinophils Percent Auto 6.5 % (0-4); Hematocrit 30.1 % (42-52); Hemoglobin 9.9 g/dl (14.0-18.0); Imm Gran Abs Auto 0.06 X10*3/uL (0.00-0.03); Imm Gran Pct Auto 0.7 % (0.0-0.4); Lymphocytes Absolute Auto 1.4 X10*3/uL (1.2-4.9); Mean Corpuscular HGB Conc 32.9 g/dl (31.0-36.0); Mean Corpuscular Hemoglobin 27.4 pg (27.0-33.0); Mean Corpuscular Volume 83.4 fL (80-98); Mean Platelet Volume 9.7 fL (9.4-12.4); Monocytes Absolute Auto 0.5 X10*3/uL (0.1-1.2); Monocytes Percent Auto 6.3 % (2-11); Neutrophils Absolute Auto 5.8 X10*3/uL (2.0-8.3); Neutrophils Percent Auto 69.1 % (45-73); Platelet Count 228 X10*3/uL (160-400); Red Blood Count 3.61 X10*6/uL (4.60-5.80); Red Cell Distribution Width 13.5 % (11.0-16.0); White Blood Count 8.3 X10*3/uL (4.8-10.8)
[2020-10-19 05:34] LABS: VBG Base Excess 4.5 mmol/L; VBG HCO3 26 mmol/L (22-26); VBG pCO2 31 mmHg; VBG pH 7.54 (7.32-7.43); VBG pO2 54 mmHg
[2020-10-19 05:38] LABS: Venous Blood Gas Refer to POC result
[2020-10-19 06:07] LABS: Albumin Level 3.3 g/dL (3.5-5.0); Blood Urea Nitrogen 15 mg/dL (9-16); Calcium 7.9 mg/dL (8.4-10.2); Creatinine Clr Calc Pharmacy 72.7; Estimated Glomerular Filt Rate > 60; Glucose Random 136 mg/dL (60-115); Magnesium 2.1 mg/dL (1.6-2.6); Phosphorus 3.4 mg/dL (2.7-4.5)
[2020-10-19 06:14] LABS: Anion Gap 14 (12-20); Carbon Dioxide 25 mmol/L (22-29); Chloride 107 mmol/L (96-108); Potassium 3.1 mmol/L (3.3-5.1); Sodium 143 mmol/L (135-145)
[2020-10-19] MEDS: Potassium Chloride/H20 40 MEQ/100 ML PIGGYBACK 100 MEQ IV (08:52)
[2020-10-19] MEDS: Furosemide 40 MG/4 ML VIAL IVPUSH (08:52)
[2020-10-19] MEDS: Chlorhexidine Gluc Oral Rinse 15 ML MOUTHWASH BUCCAL ×3 (08:52→19:57)
[2020-10-19] MEDS: 0.9 % Sodium Chloride Flush 3 ML SYRINGE IVFLUSH ×3 (08:53→21:07)
[2020-10-19] MEDS: bisacodyL 10 MG SUPP.RECT PR (13:31)
--- NOTE | 2020-10-19 14:02 | MHC.CM.PN ---
Patient remains intubated/vented in ICU. Patient is from home with 24 hour care and [facility]. There was some question about the patient's HCP because there is not a date on it. Per Motor Setter Kathleen Tyler, the HCP is valid at this time. Divya aware and has been given an update via telephone. Continue to monitor for d/c needs.
--- NOTE | 2020-10-19 14:04 | PM.PNGS ---
Subjective Subjective Date of Service: 10/19/20 Interval history: Extubated this morning Much improved in multiple parameters No nausea Denies abdominal pain Physical Exam Vital Signs: Vital Signs: Last Vital Signs Temp 98.2 F 10/19/20 11:00 Pulse 121 H 10/19/20 14:00 Resp 18 10/19/20 14:00 BP 169/78 H 10/19/20 14:00 Pulse Ox 90 L 10/19/20 14:00 Body Mass Index 40.8 Laboratory Results - last 24 hr 10/19/20 10/19/20 10/19/20 05:25 05:25 05:29 WBC 8.3 RBC 3.61 L Hgb 9.9 L Hct 30.1 L MCV 83.4 MCH 27.4 MCHC 32.9 RDW 13.5 Plt Count 228 MPV 9.7 Immature Gran % (A uto) 0.7 H Neut % (Auto) 69.1 Lymph % (Auto) 17.0 L [place] % (Auto) 6.3 Eos % (Auto) 6.5 H Baso % (Auto) 0.4 Lymph # (Auto) 1.4 [place] # (Auto) 0.5 Eos # (Auto) 0.5 H Baso # (Auto) 0.0 Abs Immat Gran (au to) 0.06 H Absolute Neuts (au to) 5.8 Absolute Nucleated RBC 0.000 Nucleated RBC % (a uto) 0.0 VBG pH 7.54 H VBG pCO2 31 VBG pO2 54 VBG HCO3 26 VBG O2 Saturation 86.0 VBG Base Excess 4.5 Sodium 143 Potassium 3.1 L Chloride 107 Carbon Dioxide 25 Anion Gap 14 BUN 15 Creatinine 1.06 Estim Creat Clear Calc 72.7 Estimated GFR > 60 Random Glucose 136 H Calcium 7.9 L Phosphorus 3.4 Magnesium 2.1 Albumin 3.3 L Const: Other: Appears a little anxious and confused but otherwise comfortable Resp: Other: Mild shortness of breath Cardio: Rate: tachycardic GI: Palpation (GI): Soft to palpation, not firm and nontender Progress Note: A&P Assessment and plan (1) Ileus: Status: Acute Assessment and Plan: Extubated earlier Switched to NG tube Follow output Abdomen very benign Likely able to removed NG tube by tomorrow Overall much improved Off pressors Fall Risk Details Current Medications: Current Medications Generic Name Dose Route Start Last Admin Trade Name [place] PRN Reason Stop Dose Admin Chlorhexidine Gluconate 15 ml 10/17/20 09:00 10/19/20 13:59 Chlorhexidine Gluc Oral Rinse 15 Ml Mouthwash BUCCAL 15 ml TID RICA Administration Piperacillin Sod/Tazobactam 50 mls @ 100 mls/hr 10/17/20 14:00 10/19/20 13:57 Sod 3.375 gm/ Sodium Chloride IV 100 mls/hr Q6H RICA Administration Nicardipine HCl 25 mg/ Sodium 260 mls @ 0 mls/hr 10/18/20 11:45 10/19/20 13:58 Chloride IVCONT 5 mg/hr .Q0M RICA 52 mls/hr Administration Protocol Per Protocol Pantoprazole Sodium 40 mg 10/20/20 06:30 Pantoprazole Sodium 40 Mg/10 Ml Vial IVPUSH DAILY@0630 RICA Sodium Chloride 3 ml 10/17/20 08:00 10/19/20 08:53 0.9 % Sodium Chloride Flush 3 Ml Syringe IVFLUSH 3 ml QSHIFT RICA Administration Time Spent With Patient Time: Total time spent is greater than 50% in coordination of care (as documented) at patient's floor/unit and/or counseling patient: Time with patient: 15 - 24 minutes
--- NOTE | 2020-10-19 14:06 | PM.CCPN ---
Subjective Subjective Date of Service: 10/19/20 Interval History: 70-year-old gentleman with underlying history of diabetes, congestive heart failure, hypertension, CAD status post [place], chronic constipation, prior aspiration events admitted on 10/17/2020 with alteration of mental status, hypoxia, Gram-negative urinary tract infection, and possible aspiration episode requiring transfer to intensive care, intubation, and ventilatory support. CT abdomen/pelvis significant for partial small-bowel obstruction versus ileus, evaluated by General surgery and being managed conservatively. No events overnight. Extubated around lunchtime today. Physical Exam Vital Signs: Vital Signs: Last Vital Signs Temp 98.2 F 10/19/20 11:00 Pulse 121 H 10/19/20 14:00 Resp 18 10/19/20 14:00 BP 169/78 H 10/19/20 14:00 Pulse Ox 90 L 10/19/20 14:00 Body Mass Index 40.8 Const: General: no acute distress and lethargic (Arousable, answers in 1-2 words) Orientation/consciousness: lethargic (Arousable, answers in 1-2 words) Eyes: Sclerae: sclerae normal EOM: EOMs intact bilaterally Neck: Neck: Yes no lymphadenopathy, Yes trachea midline and Yes supple Resp: Effort & Inspection: normal respiratory effort and no respiratory distress Auscultation: clear to auscultation bilaterally Cardio: Rate: tachycardic Rhythm: regular rhythm Heart sounds: no gallops, no murmurs and no rubs GI: Palpation (GI): Soft to palpation and Other GI palpation findings present ( Nontender, distended) Auscultation: Hypoactive bowel sounds present Extrem: General: Yes no pedal edema, No clubbing and No cyanosis Objective Data Labs CBC & Chem 7: 10/19/20 05:25 10/19/20 05:25 Labs: Laboratory Results - last 24 hr 10/19/20 10/19/20 10/19/20 05:25 05:25 05:29 WBC 8.3 RBC 3.61 L Hgb 9.9 L Hct 30.1 L MCV 83.4 MCH 27.4 MCHC 32.9 RDW 13.5 Plt Count 228 MPV 9.7 Immature Gran % (Auto) 0.7 H Neut % (Auto) 69.1 Lymph % (Auto) 17.0 L [place] % (Auto) 6.3 Eos % (Auto) 6.5 H Baso % (Auto) 0.4 Lymph # (Auto) 1.4 [place] # (Auto) 0.5 Eos # (Auto) 0.5 H Baso # (Auto) 0.0 Abs Immat Gran (auto) 0.06 H Absolute Neuts (auto) 5.8 Absolute Nucleated RBC 0.000 Nucleated RBC % (auto) 0.0 VBG pH 7.54 H VBG pCO2 31 VBG pO2 54 VBG HCO3 26 VBG O2 Saturation 86.0 VBG Base Excess 4.5 Sodium 143 Potassium 3.1 L Chloride 107 Carbon Dioxide 25 Anion Gap 14 BUN 15 Creatinine 1.06 Estim Creat Clear Calc 72.7 Estimated GFR > 60 Random Glucose 136 H Calcium 7.9 L Phosphorus 3.4 Magnesium 2.1 Albumin 3.3 L Microbiology Microbiology Results: Microbiology 10/17/20 Unknown Urine clean catch - Clean Catch Midstream Urine Culture - Preliminary Proteus mirabilis 10/17/20 00:34 Blood - Arterial Line Blood Culture - Preliminary No growth after 48 hours. 10/17/20 00:34 Blood - Arterial Line Blood Culture - Final Coag negative Staphylococcus Progress Note: A&P Assessment and plan (1) Pulmonary aspiration: Status: Acute Assessment and Plan: Assessment: 70-year-old gentleman with underlying history of congestive heart failure, diabetes mellitus, pulmonary aspiration, chronic constipation, and coronary artery disease admitted on 10/17/2020 with alteration of mental status, Gram-negative urinary tract infection, and possible pulmonary aspiration requiring ventilatory support. Plan: Neuro: No acute issues. Cardiac: No acute issues. Underlying history of congestive heart failure. Pulmonary: Acute hypoxic respiratory failure likely secondary to pulmonary aspiration requiring ventilatory support. Extubated today. Continue to titrate off supplemental oxygen as tolerated. Renal: No acute issues. Endo: No acute issues. Underlying diabetes mellitus. GI: Ileus versus partial small-bowel obstruction. Evaluated by General surgery and no immediate intervention is required. Continue with NG decompression of gastric content. ID: Gram-negative urinary tract infection and aspiration pneumonitis versus aspiration pneumonia. Continue on Zosyn until speciation and susceptibility is available. Heme/Onc: No acute issues. Psych: No acute issues. Miscellaneous: No acute issues. Prophylaxis: Pneumatic compression, ppi Diet: Nothing by mouth Critical care time spent: 60 minutes (2) Acute respiratory failure with hypoxia: Status: Acute (3) Urinary tract infection: Status: Acute (4) Ileus: Status: Acute Time Spent With Patient Total time spent with greater than 50% in coordination of care (as documented) at patient's floor/unit and/or counseling patient:: 0 Critical Care Time Critical Care Time (minutes): 60
--- NOTE | 2020-10-19 14:12 | PC.NURSE ---
Propofol stopped for sedation vacation at 10:50. At 11:10 vent setttings switched to PS 22/8 with 50% fio2 by RT. Patient became more wakeful and able to follow some commands however, he was still mildly drowsy. VS: HR 104, BP 124/64 (on nicardipine drip at 5mg/hr), RR 14, and O2 sat of 92%. Around 11:45 peep lowered to 5 and fio2 to 40% by MD. O2 sat in the low 90s. Patient tolerated sedation vacation well and was extubated around 11:57. Placed on [place] NC at 9 L with O2 sats trending in the low 90s. OG tube previously attached to intermittent suction. From 06:00 to 12:00 output of 300 ml dark GI content noted. Reported to MD. NG tube placed by . Xray to confirm placement. Set to intermittent suction. No output noted at this time. Abdomen remains distended but soft. BS x4. No BMMD aware. Suppository ordered and administered. Awaiting effectiveness.
[2020-10-19] MEDS: Esmolol HCl/NaCl Iso 2,500 MG/250 ML IV.SOLN 33.45 MG IVCONT (15:00)
--- NOTE | 2020-10-19 15:08 | PC.NURSE ---
Addendum entered by Cecile Springer RN 10/19/20 18:41: Patient converted back to sinus rhythm. HR in the 70s. Original Note: Rhythm change from SR to A.fib on telemetry. HR in the 120s to 130s. BP 173/81. Nicardipine drip discontinued by . Started on Esmolol drip at starting rate of 50 mcg/kg/min, weight 111.5 kg per protocol/order.
[2020-10-19] MEDS: dexmedeTOMIDidine HCL/NS 400 MCG/100 ML INFUS..BTL 27.88 MCG IVCONT (17:03)
[2020-10-19] MEDS: Esmolol HCl/NaCl Iso 2,500 MG/250 ML IV.SOLN 133.8 MG IVCONT (17:30)
--- NOTE | 2020-10-19 17:57 | W.PM.CCHP ---
Procedures Intubation Intubation Comments: Patient with acute onset of refractory hypoxemia likely secondary to another aspiration episode emergently intubated with 7.5 cuffed ET tube under glide scope guidance with no immediate complications. Chest x-ray for ET tube position is pending. Consent for Procedure: Emergent-no informed consent obtained Sedative: propofol Mg given: 100 Laryngoscope: fiber optic video scope ET tube size: 7.5 ET tube uncuffed: No Tube secured depth (cm): 25 Tube secured location: lips Tube placement confirmation: visualized tube passing through cords, equal breath sounds bilaterally and confirmation by capnometry Patient tolerated procedure: well Intubation complications: none
[2020-10-19] MEDS: propofoL 1,000 MG/100 ML VIAL 13.38 MG IVCONT (18:15)
[2020-10-19] MEDS: propofoL 200 MG/20 ML VIAL 100 MG IVPUSH (18:26)
[2020-10-19 18:31] LABS: Venous Blood Gas Refer to POC result
[2020-10-19 18:32] LABS: VBG Base Excess 0.3 mmol/L; VBG HCO3 24 mmol/L (22-26); VBG pCO2 36 mmHg; VBG pH 7.43 (7.32-7.43); VBG pO2 48 mmHg
--- NOTE | 2020-10-19 18:42 | PC.NURSE ---
Around 170 patient became increasingly confused, agitated and restless. Attempting to remove oxygen and NG tube. Telesitter placed bedside. O2 sats decreasing into the low 80s regardless of titrating up to 13 L via sidhu NC per MD. MD made aware of changes in patients mentation and oxygen saturation levels. SBP still trending in the 170s despite Esmolol drip, MD aware. Patient started on precedex drip with minimal effect as patient attempting to hit staff. MD at bedside. Nasal trumpet placed in left nare and patient deep suctioned by MD. Thick cream colored secretions removed. Patient tolerated poorly, desatting into the 70s. MD made decision to re-intubate around 1745. RT at bedside to assist. Patient sedated with propofol. ET tube 7.5 and 23 at the lip. Placement confirmed with Xray. Small amount of bloody inline secretions noted, MD aware. Placed on AC Vent settings with a rate of 18, tidal volume 450, peep 8, and fio2 80% with O2 sats trending in the low 90s. Restraints in placed for patient safety. NG tube in right nare remains in place and set to intermittent suction per MD. No OG tube per MD and NG tube patency. Minimal output from NG tube of dark GI content. Abdomen still distended but soft. No BM this shift regardless of previous suppository given. Plan for possible KUB tomorrow per MD. Esmolol and precedex drips turned off per MD. Remains on propofol. HR 67 and BP 121/66. RN Report given to oncoming RN.
[2020-10-19] MEDS: propofoL 1,000 MG/100 ML VIAL 20.07 MG IVCONT (21:07)
[2020-10-20] VITALS (32 sets, daily range): BP systolic 124–177; BP diastolic 52–84; PULSE 56–84; RESP 18–78; TEMP 36.5–37; O2SAT 88–97; BMI 39.7
[2020-10-20] MEDS: propofoL 1,000 MG/100 ML VIAL 26.76 MG IVCONT ×6 (00:33→18:32)
[2020-10-20] MEDS: Piperacillin Sodium/Tazobactam 3.375 GM in 0.9 % Sodium Chloride 50 ML IV ×3 (00:33→12:48)
[2020-10-20 05:42] LABS: VBG Base Excess 0.8 mmol/L; VBG HCO3 24 mmol/L (22-26); VBG pCO2 36 mmHg; VBG pH 7.43 (7.32-7.43); VBG pO2 63 mmHg
[2020-10-20 05:51] LABS: MANUAL DIFF FLAG NO
[2020-10-20 05:53] LABS: Basophils Percent Auto 0.4 % (0-2); Eosinophils Absolute Auto 0.5 X10*3/uL (0.0-0.4); Eosinophils Percent Auto 6.5 % (0-4); Hemoglobin 10.1 g/dl (14.0-18.0); Imm Gran Abs Auto 0.12 X10*3/uL (0.00-0.03); Imm Gran Pct Auto 1.4 % (0.0-0.4); Lymphocytes Absolute Auto 1.4 X10*3/uL (1.2-4.9); Lymphocytes Percent Auto 17.1 % (20-40); Mean Corpuscular HGB Conc 32.6 g/dl (31.0-36.0); Mean Corpuscular Hemoglobin 27.4 pg (27.0-33.0); Mean Corpuscular Volume 84.2 fL (80-98); Mean Platelet Volume 9.9 fL (9.4-12.4); Monocytes Absolute Auto 0.6 X10*3/uL (0.1-1.2); Monocytes Percent Auto 6.9 % (2-11); Neutrophils Absolute Auto 5.6 X10*3/uL (2.0-8.3); Neutrophils Percent Auto 67.7 % (45-73); Platelet Count 257 X10*3/uL (160-400); Red Blood Count 3.68 X10*6/uL (4.60-5.80); Red Cell Distribution Width 13.4 % (11.0-16.0); White Blood Count 8.3 X10*3/uL (4.8-10.8)
[2020-10-20] MEDS: Pantoprazole Sodium 40 MG/10 ML VIAL IVPUSH (06:01)
[2020-10-20 06:14] LABS: Albumin Level 3.4 g/dL (3.5-5.0); Anion Gap 14 (12-20); Blood Urea Nitrogen 13 mg/dL (9-16); Carbon Dioxide 25 mmol/L (22-29); Chloride 108 mmol/L (96-108); Creatinine Clr Calc Pharmacy 76.5; Estimated Glomerular Filt Rate > 60; Glucose Random 128 mg/dL (60-115); Magnesium 2.2 mg/dL (1.6-2.6); Phosphorus 3.9 mg/dL (2.7-4.5); Potassium 3.4 mmol/L (3.3-5.1); Sodium 144 mmol/L (135-145)
[2020-10-20 06:32] LABS: Venous Blood Gas Refer to POC result
[2020-10-20] MEDS: 0.9 % Sodium Chloride Flush 3 ML SYRINGE IVFLUSH ×2 (08:07→16:24)
[2020-10-20] MEDS: Metoclopramide HCl 10 MG/2 ML VIAL IVPUSH ×3 (08:07→19:56)
[2020-10-20] MEDS: Furosemide 20 MG/2 ML VIAL IVPUSH (08:07)
[2020-10-20] MEDS: Chlorhexidine Gluc Oral Rinse 15 ML MOUTHWASH BUCCAL ×3 (08:13→20:07)
--- NOTE | 2020-10-20 09:03 | P.PNGS_ITS ---
Subjective Subjective Date of Service: 10/20/20 Interval history: Reintubated later in the day Possible reaspiration No reported vomiting Physical Exam Vital Signs: Vital Signs: Last Vital Signs Temp 98.2 F 10/20/20 08:00 Pulse 67 10/20/20 08:00 Resp 20 10/20/20 08:00 BP 146/68 H 10/20/20 08:00 Pulse Ox 89 L 10/20/20 08:00 Body Mass Index 40.8 Laboratory Results - last 24 hr 10/19/20 10/20/20 10/20/20 18:25 05:25 05:25 WBC 8.3 RBC 3.68 L Hgb 10.1 L Hct 31.0 L MCV 84.2 MCH 27.4 MCHC 32.6 RDW 13.4 Plt Count 257 MPV 9.9 Immature Gran % (A uto) 1.4 H Neut % (Auto) 67.7 Lymph % (Auto) 17.1 L [place] % (Auto) 6.9 Eos % (Auto) 6.5 H Baso % (Auto) 0.4 Lymph # (Auto) 1.4 [place] # (Auto) 0.6 Eos # (Auto) 0.5 H Baso # (Auto) 0.0 Abs Immat Gran (au to) 0.12 H Absolute Neuts (au to) 5.6 Absolute Nucleated RBC 0.000 Nucleated RBC % (a uto) 0.0 VBG pH 7.43 VBG pCO2 36 VBG pO2 48 VBG HCO3 24 VBG O2 Saturation 77.0 VBG Base Excess 0.3 Sodium 144 Potassium 3.4 Chloride 108 Carbon Dioxide 25 Anion Gap 14 BUN 13 Creatinine 1.02 Estim Creat Clear Calc 76.5 Estimated GFR > 60 Random Glucose 128 H Calcium 8.0 L Phosphorus 3.9 Magnesium 2.2 Albumin 3.4 L 10/20/20 05:36 WBC RBC Hgb Hct MCV MCH MCHC RDW Plt Count MPV Immature Gran % (A uto) Neut % (Auto) Lymph % (Auto) [place] % (Auto) Eos % (Auto) Baso % (Auto) Lymph # (Auto) [place] # (Auto) Eos # (Auto) Baso # (Auto) Abs Immat Gran (au to) Absolute Neuts (au to) Absolute Nucleated RBC Nucleated RBC % (a uto) VBG pH 7.43 VBG pCO2 36 VBG pO2 63 VBG HCO3 24 VBG O2 Saturation 90.0 VBG Base Excess 0.8 Sodium Potassium Chloride Carbon Dioxide Anion Gap BUN Creatinine Estim Creat Clear Calc Estimated GFR Random Glucose Calcium Phosphorus Magnesium Albumin Const: Other: Sedated, on ventilator Resp: Effort & Inspection: no respiratory distress Cardio: Rate: tachycardic GI: Palpation (GI): Soft to palpation, not firm and no guarding Progress Note: A&P Assessment and plan (1) Ileus: Status: Acute Assessment and Plan: Clinically not obstructed No bowel ischemia on exam and clinical findings reintubated however for aspiration Abdominal exam remains benign Okay to give Reglan for motility The rest of management as per the licensed prosthetist/orthotist WBC normal Fall Risk Details Current Medications: Current Medications Generic Name Dose Route Start Last Admin Trade Name Freq PRN Reason Stop Dose Admin Chlorhexidine Gluconate 15 ml 10/17/20 09:00 10/20/20 08:13 Chlorhexidine Gluc Oral Rinse 15 Ml Mouthwash BUCCAL 15 ml TID RICA Administration Furosemide 20 mg 10/20/20 09:00 10/20/20 08:07 Furosemide 20 Mg/2 Ml Vial IVPUSH 20 mg DAILY RICA Administration Protocol Piperacillin Sod/Tazobactam 50 mls @ 100 mls/hr 10/17/20 14:00 10/20/20 08:38 Sod 3.375 gm/ Sodium Chloride IV Infused Q6H RICA Infusion Esmolol HCl 2,500 mg in 250 mls @ 0 mls/hr 10/19/20 14:45 10/19/20 18:14 Brevibloc/Nacl IVCONT 0 mcg/kg/min .Q0M RICA 0 mls/hr Titration Protocol Per Protocol Propofol 1,000 mg in 100 mls @ 0 mls/hr 10/19/20 18:15 10/20/20 08:13 Diprivan IVCONT 40 mcg/kg/min .Q0M RICA 26.76 mls/hr Administration Protocol Per Protocol Metoclopramide HCl 10 mg 10/20/20 08:00 10/20/20 08:07 Metoclopramide Hcl 10 Mg/2 Ml Vial IVPUSH 10 mg Q6H RICA Administration Pantoprazole Sodium 40 mg 10/20/20 06:30 10/20/20 06:01 Pantoprazole Sodium 40 Mg/10 Ml Vial IVPUSH 40 mg DAILY@0630 RICA Administration Sodium Chloride 3 ml 10/17/20 08:00 10/20/20 08:07 0.9 % Sodium Chloride Flush 3 Ml Syringe IVFLUSH 3 ml QSHIFT RICA Administration Time Spent With Patient Time: Total time spent is greater than 50% in coordination of care (as documented) at patient's floor/unit and/or counseling patient: Time with patient: 15 - 24 minutes
--- NOTE | 2020-10-20 10:32 | MHC.CLN ---
F/U PT REMAINS NPO NG TUBE SECONDARY TO ILEUS IF TF NEEDED; RECOMMEND GLUCERNA AT MAX GOAL RATE 30CC/HR TO PROVIDE 720KCALS (1425KCALS WITH SEDATION; 23KCALS/KG BASED ON IBW), 30G PROTEIN, 614CC FREE WATER FOLLOWING
[2020-10-20] MEDS: niCARdipine HCL 25 MG in 0.9 % Sodium Chloride 250 ML 26 MG IVCONT (12:42)
--- NOTE | 2020-10-20 13:24 | MHC.CM.PN ---
Patient remains in ICU. Extubated on 10/19 around noon. Had to be reintubated on 10/19 around 6pm. Attempted to return [facility] call via telephone at [phone]. Left message requesting return telephone call. Continue to monitor for d/c needs.
--- NOTE | 2020-10-20 15:18 | PC.NURSE ---
Pt continues on propofol for sedation, easily arousable with stimulation, restraints remain for patient safety bps trending 170s systollically and hr han a ttmd edin aware, started on cardene drip 2.5mg/hr, bp currently trending 130s systollically PT HCP updated
--- NOTE | 2020-10-20 16:33 | P.PNCC_ITS ---
Subjective Subjective Date of Service: 10/20/20 Interval History: 70-year-old gentleman with underlying history of diabetes, congestive heart failure, hypertension, CAD status post [place], chronic constipation, prior aspiration events admitted on 10/17/2020 with alteration of mental status, hypoxia, Gram-negative urinary tract infection, and possible aspiration episode requiring transfer to intensive care, intubation, and ventilatory support. CT abdomen/pelvis significant for partial small-bowel obstruction versus ileus, evaluated by General surgery and being managed conservatively. Extubated on 10/19/2020, however required re-intubation secondary to recurrent aspiration the same day. No events overnight. Physical Exam Vital Signs: Vital Signs: Last Vital Signs Temp 98.1 F 10/20/20 16:00 Pulse 78 10/20/20 16:00 Resp 19 10/20/20 16:00 BP 129/57 L 10/20/20 16:00 Pulse Ox 95 10/20/20 16:00 Body Mass Index 39.7 Const: General: no acute distress and other (Sedated on the vent) Nutritional Appearance: obese Eyes: Sclerae: sclerae normal EOM: EOMs intact bilaterally Neck: Neck: Yes no lymphadenopathy, Yes trachea midline and Yes supple Resp: Effort & Inspection: normal respiratory effort and no respiratory distress Auscultation: clear to auscultation bilaterally Cardio: Rate: regular rate Rhythm: regular rhythm Heart sounds: no gallops, no murmurs and no rubs GI: Palpation (GI): Soft to palpation and Other GI palpation findings present ( Nontender, distended) Auscultation: Hypoactive bowel sounds present Extrem: General: No clubbing, No cyanosis and Yes edema (1+ bilateral) Objective Data Labs CBC & Chem 7: 10/20/20 05:25 10/20/20 05:25 Labs: Laboratory Results - last 24 hr 10/19/20 10/20/20 10/20/20 18:25 05:25 05:25 WBC 8.3 RBC 3.68 L Hgb 10.1 L Hct 31.0 L MCV 84.2 MCH 27.4 MCHC 32.6 RDW 13.4 Plt Count 257 MPV 9.9 Immature Gran % (Auto) 1.4 H Neut % (Auto) 67.7 Lymph % (Auto) 17.[address] [place] % (Auto) 6.9 Eos % (Auto) 6.5 H Baso % (Auto) 0.4 Lymph # (Auto) 1.4 [place] # (Auto) 0.6 Eos # (Auto) 0.5 H Baso # (Auto) 0.0 Abs Immat Gran (auto) 0.12 H Absolute Neuts (auto) 5.6 Absolute Nucleated RBC 0.000 Nucleated RBC % (auto) 0.0 VBG pH 7.43 VBG pCO2 36 VBG pO2 48 VBG HCO3 24 VBG O2 Saturation 77.0 VBG Base Excess 0.3 Sodium 144 Potassium 3.4 Chloride 108 Carbon Dioxide 25 Anion Gap 14 BUN 13 Creatinine 1.02 Estim Creat Clear Calc 76.5 Estimated GFR > 60 Random Glucose 128 H Calcium 8.0 L Phosphorus 3.9 Magnesium 2.2 Albumin 3.4 L 10/20/20 05:36 WBC RBC Hgb Hct MCV MCH MCHC RDW Plt Count MPV Immature Gran % (Auto) Neut % (Auto) Lymph % (Auto) [place] % (Auto) Eos % (Auto) Baso % (Auto) Lymph # (Auto) [place] # (Auto) Eos # (Auto) Baso # (Auto) Abs Immat Gran (auto) Absolute Neuts (auto) Absolute Nucleated RBC Nucleated RBC % (auto) VBG pH 7.43 VBG pCO2 36 VBG pO2 63 VBG HCO3 24 VBG O2 Saturation 90.0 VBG Base Excess 0.8 Sodium Potassium Chloride Carbon Dioxide Anion Gap BUN Creatinine Estim Creat Clear Calc Estimated GFR Random Glucose Calcium Phosphorus Magnesium Albumin Microbiology Microbiology Results: Microbiology 10/17/20 Unknown Urine clean catch - Clean Catch Midstream Urine Culture - Preliminary Proteus mirabilis 10/17/20 00:34 Blood - Arterial Line Blood Culture - Preliminary No growth after 48 hours. 10/17/20 00:34 Blood - Arterial Line Blood Culture - Final Coag negative Staphylococcus Progress Note: A&P Assessment and plan (1) Pulmonary aspiration: Status: Acute Assessment and Plan: Assessment: 70-year-old gentleman with underlying history of congestive heart failure, diabetes mellitus, pulmonary aspiration, chronic constipation, and coronary artery disease admitted on 10/17/2020 with alteration of mental status, Gram-negative urinary tract infection, and possible pulmonary aspiration requiring ventilatory support. Plan: Neuro: No acute issues. Cardiac: No acute issues. Underlying history of congestive heart failure. Pulmonary: Acute hypoxic respiratory failure likely secondary to pulmonary aspiration requiring ventilatory support. Extubated 10/19/2020, however required re-intubation the same day secondary to recurrent aspiration. Continue to titrate off ventilatory support as tolerated. Renal: No acute issues. Endo: No acute issues. Underlying diabetes mellitus. GI: Ileus versus partial small-bowel obstruction. Evaluated by General surgery and no immediate intervention is required. Continue with NG decompression of gastric content. ID: Proteus urinary tract infection and aspiration pneumonitis versus aspiration pneumonia. Will switch Zosyn to ceftriaxone. Heme/Onc: No acute issues. Psych: No acute issues. Miscellaneous: No acute issues. Prophylaxis: Pneumatic compression, ppi Diet: Nothing by mouth Critical care time spent: 60 minutes (2) Acute respiratory failure with hypoxia: Status: Acute (3) Ileus: Status: Acute (4) Urinary tract infection: Status: Acute (5) Aspiration pneumonitis: Status: Acute Time Spent With Patient Total time spent with greater than 50% in coordination of care (as documented) at patient's floor/unit and/or counseling patient:: 0 Critical Care Time Critical Care Time (minutes): 60
[2020-10-20] MEDS: cefTRIAXone sodium 1 GM in 0.9 % Sodium Chloride 50 ML IV (18:10)
[2020-10-20] MEDS: propofoL 1,000 MG/100 ML VIAL 33.45 MG IVCONT ×2 (21:03→23:43)
[2020-10-20] MEDS: niCARdipine HCL 25 MG in 0.9 % Sodium Chloride 250 ML 52 MG IVCONT (21:07)
[2020-10-21] VITALS (33 sets, daily range): BP systolic 127–167; BP diastolic 58–80; PULSE 64–112; RESP 18–25; TEMP 35.9–37.2; O2SAT 91–99; BMI 39.8
[2020-10-21] MEDS: niCARdipine HCL 25 MG in 0.9 % Sodium Chloride 250 ML 78 MG IVCONT ×3 (00:44→07:21)
[2020-10-21] MEDS: 0.9 % Sodium Chloride Flush 3 ML SYRINGE IVFLUSH ×3 (02:11→15:46)
[2020-10-21] MEDS: Metoclopramide HCl 10 MG/2 ML VIAL IVPUSH ×4 (02:11→19:23)
[2020-10-21] MEDS: propofoL 1,000 MG/100 ML VIAL 33.45 MG IVCONT ×2 (02:39→22:33)
--- NOTE | 2020-10-21 04:05 | PC.NURSE ---
sedated under the influences of propofol. with lower dosages of propofol, pt will open his eyes and wiggle fingers when instructed to to do so. he has gross weakness to lower extremities. complexion pale/sallow. anasarca is well appreciated. with emergence from sedation becomes asynchronus with mechanical ventilator. consequently propofol has been incresed upward to 50 mcg/kg/hr. also with emergence sbp has increased above 160 mmhg and nicardipine drip hs been titrated upward to 7.5mg/hr to keep sbp<160 mmhg. breath sounds with coarse upper airway rhonchi. suctioned via ett for thick perez sputum. ecg displays sr. afebrile. abdomen large/slight distension/semisoft. ngt to low intermittent wall suction draining aceves bile colored gastric material. + hypoactive bowel sounds. oseguera catheter patent and draining cocnc slightly green urine.
[2020-10-21] MEDS: propofoL 1,000 MG/100 ML VIAL 26.76 MG IVCONT ×5 (05:53→19:22)
[2020-10-21 05:55] LABS: MANUAL DIFF FLAG NO
[2020-10-21] MEDS: Pantoprazole Sodium 40 MG/10 ML VIAL IVPUSH (05:57)
[2020-10-21 05:59] LABS: Venous Blood Gas Refer to POC result
[2020-10-21 06:00] LABS: VBG Base Excess -3.4 mmol/L; VBG HCO3 20 mmol/L (22-26); VBG pCO2 30 mmHg; VBG pH 7.42 (7.32-7.43); VBG pO2 59 mmHg
[2020-10-21 06:03] LABS: Basophils Percent Auto 0.5 % (0-2); Eosinophils Absolute Auto 0.6 X10*3/uL (0.0-0.4); Eosinophils Percent Auto 6.7 % (0-4); Hematocrit 33.1 % (42-52); Hemoglobin 10.8 g/dl (14.0-18.0); Imm Gran Abs Auto 0.31 X10*3/uL (0.00-0.03); Imm Gran Pct Auto 3.8 % (0.0-0.4); Lymphocytes Absolute Auto 1.7 X10*3/uL (1.2-4.9); Lymphocytes Percent Auto 20.7 % (20-40); Mean Corpuscular HGB Conc 32.6 g/dl (31.0-36.0); Mean Corpuscular Hemoglobin 27.3 pg (27.0-33.0); Mean Corpuscular Volume 83.8 fL (80-98); Mean Platelet Volume 9.2 fL (9.4-12.4); Monocytes Absolute Auto 0.6 X10*3/uL (0.1-1.2); Monocytes Percent Auto 7.5 % (2-11); Neutrophils Percent Auto 60.8 % (45-73); Platelet Count 251 X10*3/uL (160-400); Red Blood Count 3.95 X10*6/uL (4.60-5.80); Red Cell Distribution Width 13.2 % (11.0-16.0); White Blood Count 8.2 X10*3/uL (4.8-10.8)
[2020-10-21 06:21] LABS: Albumin Level 3.6 g/dL (3.5-5.0); Anion Gap 13 (12-20); Blood Urea Nitrogen 11 mg/dL (9-16); Calcium 8.4 mg/dL (8.4-10.2); Carbon Dioxide 25 mmol/L (22-29); Chloride 109 mmol/L (96-108); Creatinine Clr Calc Pharmacy 93.7; Estimated Glomerular Filt Rate > 60; Glucose Random 113 mg/dL (60-115); Magnesium 2.1 mg/dL (1.6-2.6); Phosphorus 3.4 mg/dL (2.7-4.5); Potassium 3.1 mmol/L (3.3-5.1); Sodium 144 mmol/L (135-145)
[2020-10-21] MEDS: Chlorhexidine Gluc Oral Rinse 15 ML MOUTHWASH BUCCAL ×3 (08:12→21:17)
[2020-10-21] MEDS: Furosemide 20 MG/2 ML VIAL IVPUSH (08:12)
[2020-10-21] MEDS: Potassium Chloride/H20 40 MEQ/100 ML PIGGYBACK 100 MEQ IV ×3 (08:17→16:53)
--- NOTE | 2020-10-21 08:18 | P.PNGS_ITS ---
Subjective Subjective Date of Service: 10/21/20 Interval history: No further events reported Patient remains on ventilator Physical Exam Vital Signs: Vital Signs: Last Vital Signs Temp 96.6 F L 10/21/20 08:00 Pulse 92 10/21/20 08:00 Resp 19 10/21/20 08:00 BP 162/74 H 10/21/20 08:00 Pulse Ox 95 10/21/20 08:00 Body Mass Index 39.8 Laboratory Results - last 24 hr 10/21/20 10/21/20 10/21/20 05:48 05:48 05:55 WBC 8.2 RBC 3.95 L Hgb 10.8 L Hct 33.1 L MCV 83.8 MCH 27.3 MCHC 32.6 RDW 13.2 Plt Count 251 MPV 9.2 L Immature Gran % (A uto) 3.8 H Neut % (Auto) 60.8 Lymph % (Auto) 20.7 [place] % (Auto) 7.5 Eos % (Auto) 6.7 H Baso % (Auto) 0.5 Lymph # (Auto) 1.7 [place] # (Auto) 0.6 Eos # (Auto) 0.6 H Baso # (Auto) 0.0 Abs Immat Gran (au to) 0.31 H Absolute Neuts (au to) 5.0 Absolute Nucleated RBC 0.000 Nucleated RBC % (a uto) 0.0 VBG pH 7.42 VBG pCO2 30 VBG pO2 59 VBG HCO3 20 L VBG O2 Saturation 87.0 VBG Base Excess -3.4 Sodium 144 Potassium 3.1 L Chloride 109 H Carbon Dioxide 25 Anion Gap 13 BUN 11 Creatinine 0.82 Estim Creat Clear Calc 93.7 Estimated GFR > 60 Random Glucose 113 Calcium 8.4 Phosphorus 3.4 Magnesium 2.1 Albumin 3.6 Const: Other: Sedated, initiating breaths Resp: Other: On ventilator Cardio: Rate: tachycardic GI: Other: Soft, nondistended, no guarding Progress Note: A&P Assessment and plan (1) Ileus: Status: Acute Assessment and Plan: Overall clinical picture suggestive of ileus on admission abdominal exam remains benign NG tube in place Correct hypokalemia Has other medical issues Rest of management as per educational assistant teacher No apparent surgical issues at this time Fall Risk Details Current Medications: Current Medications Generic Name Dose Route Start Last Admin Trade Name Freq PRN Reason Stop Dose Admin Chlorhexidine Gluconate 15 ml 10/17/20 09:00 10/21/20 08:12 Chlorhexidine Gluc Oral Rinse 15 Ml Mouthwash BUCCAL 15 ml TID RICA Administration Furosemide 20 mg 10/20/20 09:00 10/21/20 08:12 Furosemide 20 Mg/2 Ml Vial IVPUSH 20 mg DAILY RICA Administration Protocol Propofol 1,000 mg in 100 mls @ 0 mls/hr 10/19/20 18:15 10/21/20 05:53 Diprivan IVCONT 40 mcg/kg/min .Q0M RICA 26.76 mls/hr Administration Protocol Per Protocol Nicardipine HCl 25 mg/ Sodium 260 mls @ 0 mls/hr 10/20/20 12:15 10/21/20 07:21 Chloride IVCONT 7.5 mg/hr .Q0M RICA 78 mls/hr Administration Protocol Per Protocol Ceftriaxone Sodium 1 gm/ 50 mls @ 100 mls/hr 10/20/20 17:00 10/20/20 18:40 Sodium Chloride IV Infused Q24H RICA Infusion Potassium Chloride 40 meq in 100 mls @ 100 mls/hr 10/21/20 08:06 10/21/20 08:17 IV 10/21/20 09:05 100 mls/hr ONCE ONE Administration Metoclopramide HCl 10 mg 10/20/20 08:00 10/21/20 07:17 Metoclopramide Hcl 10 Mg/2 Ml Vial IVPUSH 10 mg Q6H RICA Administration Pantoprazole Sodium 40 mg 10/20/20 06:30 10/21/20 05:57 Pantoprazole Sodium 40 Mg/10 Ml Vial IVPUSH 40 mg DAILY@0630 RICA Administration Sodium Chloride 3 ml 10/17/20 08:00 10/21/20 07:16 0.9 % Sodium Chloride Flush 3 Ml Syringe IVFLUSH 3 ml QSHIFT RICA Administration Time Spent With Patient Time: Total time spent is greater than 50% in coordination of care (as documented) at patient's floor/unit and/or counseling patient: Time with patient: 15 - 24 minutes
[2020-10-21] MEDS: niCARdipine HCL 25 MG in 0.9 % Sodium Chloride 250 ML 93.6 MG IVCONT (11:11)
[2020-10-21] MEDS: niCARdipine HCL 25 MG in 0.9 % Sodium Chloride 250 ML 104 MG IVCONT ×4 (14:00→21:55)
--- NOTE | 2020-10-21 14:58 | PM.CCPN ---
Subjective Subjective Date of Service: 10/21/20 Interval History: 70-year-old gentleman with underlying history of diabetes, congestive heart failure, hypertension, CAD status post [place], chronic constipation, prior aspiration events admitted on 10/17/2020 with alteration of mental status, hypoxia, Gram-negative urinary tract infection, and possible aspiration episode requiring transfer to intensive care, intubation, and ventilatory support. CT abdomen/pelvis significant for partial small-bowel obstruction versus ileus, evaluated by General surgery and being managed conservatively. Extubated on 10/19/2020, however required re-intubation secondary to recurrent aspiration the same day. No events overnight. Physical Exam Vital Signs: Vital Signs: Last Vital Signs Temp 98.1 F 10/21/20 14:00 Pulse 100 10/21/20 14:00 Resp 20 10/21/20 14:00 BP 151/79 H 10/21/20 14:00 Pulse Ox 94 10/21/20 14:00 Body Mass Index 39.8 Const: General: no acute distress and other (Sedated on the vent, follows commands with sedation vacation) Eyes: Sclerae: sclerae normal EOM: EOMs intact bilaterally Neck: Neck: Yes no lymphadenopathy, Yes trachea midline and Yes supple Resp: Auscultation: clear to auscultation bilaterally Cardio: Rate: regular rate Rhythm: regular rhythm Heart sounds: no gallops, no murmurs and no rubs GI: Palpation (GI): Soft to palpation and Other GI palpation findings present ( Nontender) Auscultation: normal bowel sounds Extrem: General: No clubbing, No cyanosis and Yes edema (Trace bilateral) Objective Data Labs CBC & Chem 7: 10/21/20 05:48 10/21/20 05:48 Labs: Laboratory Results - last 24 hr 10/21/20 10/21/20 10/21/20 05:48 05:48 05:55 WBC 8.2 RBC 3.95 L Hgb 10.8 L Hct 33.1 L MCV 83.8 MCH 27.3 MCHC 32.6 RDW 13.2 Plt Count 251 MPV 9.2 L Immature Gran % (Auto) 3.8 H Neut % (Auto) 60.8 Lymph % (Auto) 20.7 [place] % (Auto) 7.5 Eos % (Auto) 6.7 H Baso % (Auto) 0.5 Lymph # (Auto) 1.7 [place] # (Auto) 0.6 Eos # (Auto) 0.6 H Baso # (Auto) 0.0 Abs Immat Gran (auto) 0.31 H Absolute Neuts (auto) 5.0 Absolute Nucleated RBC 0.000 Nucleated RBC % (auto) 0.0 VBG pH 7.42 VBG pCO2 30 VBG pO2 59 VBG HCO3 20 L VBG O2 Saturation 87.0 VBG Base Excess -3.4 Sodium 144 Potassium 3.1 L Chloride 109 H Carbon Dioxide 25 Anion Gap 13 BUN 11 Creatinine 0.82 Estim Creat Clear Calc 93.7 Estimated GFR > 60 Random Glucose 113 Calcium 8.4 Phosphorus 3.4 Magnesium 2.1 Albumin 3.6 Microbiology Microbiology Results: Microbiology 10/17/20 Unknown Urine clean catch - Clean Catch Midstream Urine Culture - Preliminary Proteus mirabilis 10/17/20 00:34 Blood - Arterial Line Blood Culture - Preliminary No growth after 48 hours. 10/17/20 00:34 Blood - Arterial Line Blood Culture - Final Coag negative Staphylococcus Progress Note: A&P Assessment and plan (1) Pulmonary aspiration: Status: Acute Assessment and Plan: Assessment: 70-year-old gentleman with underlying history of congestive heart failure, diabetes mellitus, pulmonary aspiration, chronic constipation, and coronary artery disease admitted on 10/17/2020 with alteration of mental status, Gram-negative urinary tract infection, and possible pulmonary aspiration requiring ventilatory support. Plan: Neuro: No acute issues. Cardiac: No acute issues. Underlying history of congestive heart failure. Pulmonary: Acute hypoxic respiratory failure likely secondary to pulmonary aspiration requiring ventilatory support. Extubated 10/19/2020, however required re-intubation the same day secondary to recurrent aspiration. Continue to titrate off ventilatory support as tolerated. Renal: No acute issues. Endo: No acute issues. Underlying diabetes mellitus. GI: Ileus versus partial small-bowel obstruction. Evaluated by General surgery and no immediate intervention is required. Continue with NG decompression of gastric content. Continue with Reglan. ID: Proteus urinary tract infection and aspiration pneumonitis versus aspiration pneumonia. Continue ceftriaxone for total of 7 days of antibiotics. Heme/Onc: No acute issues. No pharmacologic DVT prophylaxis secondary to concern for upper GI bleed with initial presentation. Psych: No acute issues. Miscellaneous: No acute issues. Prophylaxis: Pneumatic compression, ppi Diet: Nothing by mouth Critical care time spent: 60 minutes (2) Acute respiratory failure with hypoxia: Status: Acute (3) Ileus: Status: Acute (4) Urinary tract infection: Status: Acute (5) Afib: Status: Acute (6) Congestive heart failure: Status: Acute Time Spent With Patient Total time spent with greater than 50% in coordination of care (as documented) at patient's floor/unit and/or counseling patient:: 0 Critical Care Time Critical Care Time (minutes): 60
--- NOTE | 2020-10-21 15:10 | MHC.CM.PN ---
Pt required reintubation for recurrent aspiration PNA: Pt is also on pressor support. D/C plan initially was for a return to home with existing [employer] and [employer] [facility] support, however, pt may requires STR or LTAC (if trach/peg placement). CM to follow for finalization of d/c plans.
[2020-10-21] MEDS: cefTRIAXone sodium 1 GM in 0.9 % Sodium Chloride 50 ML IV (17:23)
--- NOTE | 2020-10-21 19:35 | PC.NURSE ---
SOAP SUDS ENEMA GIVEN. ONE VERY TINY , CARRILLO BM POST ENEMA. MD NOTIFIED.
[2020-10-22] VITALS (31 sets, daily range): BP systolic 114–171; BP diastolic 57–80; PULSE 77–104; RESP 18–22; TEMP 36.5–37.1; O2SAT 89–100; BMI 39.6
[2020-10-22] MEDS: 0.9 % Sodium Chloride Flush 3 ML SYRINGE IVFLUSH ×4 (00:38→20:18)
[2020-10-22] MEDS: niCARdipine HCL 25 MG in 0.9 % Sodium Chloride 250 ML 104 MG IVCONT ×9 (00:38→22:50)
[2020-10-22] MEDS: propofoL 1,000 MG/100 ML VIAL 33.45 MG IVCONT ×9 (01:25→22:52)
[2020-10-22] MEDS: Metoclopramide HCl 10 MG/2 ML VIAL IVPUSH ×4 (01:26→20:17)
[2020-10-22 05:37] LABS: MANUAL DIFF FLAG NO
[2020-10-22 05:39] LABS: Basophils Percent Auto 0.3 % (0-2); Eosinophils Absolute Auto 0.7 X10*3/uL (0.0-0.4); Eosinophils Percent Auto 7.1 % (0-4); Hematocrit 31.9 % (42-52); Hemoglobin 10.5 g/dl (14.0-18.0); Imm Gran Abs Auto 0.37 X10*3/uL (0.00-0.03); Lymphocytes Absolute Auto 1.5 X10*3/uL (1.2-4.9); Lymphocytes Percent Auto 16.3 % (20-40); Mean Corpuscular HGB Conc 32.9 g/dl (31.0-36.0); Mean Corpuscular Hemoglobin 27.4 pg (27.0-33.0); Mean Corpuscular Volume 83.3 fL (80-98); Mean Platelet Volume 8.9 fL (9.4-12.4); Monocytes Absolute Auto 0.6 X10*3/uL (0.1-1.2); Neutrophils Percent Auto 65.3 % (45-73); Platelet Count 258 X10*3/uL (160-400); Red Blood Count 3.83 X10*6/uL (4.60-5.80); Red Cell Distribution Width 13.2 % (11.0-16.0); White Blood Count 9.2 X10*3/uL (4.8-10.8)
[2020-10-22] MEDS: Pantoprazole Sodium 40 MG/10 ML VIAL IVPUSH (05:40)
[2020-10-22 05:43] LABS: Venous Blood Gas Refer to POC result
[2020-10-22 05:43] LABS: VBG Base Excess -5.3 mmol/L; VBG HCO3 19 mmol/L (22-26); VBG pCO2 34 mmHg; VBG pH 7.35 (7.32-7.43); VBG pO2 73 mmHg
[2020-10-22 06:12] LABS: Albumin Level 3.5 g/dL (3.5-5.0); Anion Gap 14 (12-20); Blood Urea Nitrogen 8 mg/dL (9-16); Calcium 8.1 mg/dL (8.4-10.2); Carbon Dioxide 21 mmol/L (22-29); Chloride 111 mmol/L (96-108); Creatinine Clr Calc Pharmacy 99.9; Estimated Glomerular Filt Rate > 60; Glucose Random 117 mg/dL (60-115); Phosphorus 3.3 mg/dL (2.7-4.5); Potassium 3.9 mmol/L (3.3-5.1); Sodium 142 mmol/L (135-145)
[2020-10-22] MEDS: Chlorhexidine Gluc Oral Rinse 15 ML MOUTHWASH BUCCAL ×3 (07:51→20:17)
[2020-10-22] MEDS: Furosemide 20 MG/2 ML VIAL IVPUSH (07:51)
[2020-10-22] MEDS: Lactulose 20 GM/30 ML SOLUTION 30 GM PO ×2 (08:02→20:17)
[2020-10-22] MEDS: niCARdipine HCL 25 MG in 0.9 % Sodium Chloride 250 ML 78 MG IVCONT (10:14)
--- NOTE | 2020-10-22 10:41 | MHC.CLN ---
F/U PT REMAINS NPO NG TUBE SECONDARY TO ILEUS; NOTED SMALL BM 10/21 IF TF NEEDED; RECOMMEND GLUCERNA AT MAX GOAL RATE 30CC/HR TO PROVIDE 720KCALS (1603KCALS WITH SEDATION; 26KCALS/KG BASED ON IBW), 30G PROTEIN, 614CC FREE WATER IF TPN NEEDED PLEASE CONSULT RD FOLLOWING
--- NOTE | 2020-10-22 13:01 | P.PNGS_ITS ---
Subjective Subjective Date of Service: 10/22/20 Interval history: Still intubated but with minimal ventilatory support no BMs NG tube output down Physical Exam Vital Signs: Vital Signs: Last Vital Signs Temp 98.1 F 10/22/20 12:00 Pulse 96 10/22/20 12:00 Resp 21 H 10/22/20 12:00 BP 157/71 H 10/22/20 12:00 Pulse Ox 96 10/22/20 12:00 Body Mass Index 39.6 Laboratory Results - last 24 hr 10/22/20 10/22/20 10/22/20 05:28 05:28 05:38 WBC 9.2 RBC 3.83 L Hgb 10.5 L Hct 31.9 L MCV 83.3 MCH 27.4 MCHC 32.9 RDW 13.2 Plt Count 258 MPV 8.9 L Immature Gran % (A uto) 4.0 H Neut % (Auto) 65.3 Lymph % (Auto) 16.3 L [place] % (Auto) 7.0 Eos % (Auto) 7.1 H Baso % (Auto) 0.3 Lymph # (Auto) 1.5 [place] # (Auto) 0.6 Eos # (Auto) 0.7 H Baso # (Auto) 0.0 Abs Immat Gran (au to) 0.37 H Absolute Neuts (au to) 6.0 Absolute Nucleated RBC 0.000 Nucleated RBC % (a uto) 0.0 VBG pH 7.35 VBG pCO2 34 VBG pO2 73 VBG HCO3 19 L VBG O2 Saturation 93.0 VBG Base Excess -5.3 Sodium 142 Potassium 3.9 D Chloride 111 H Carbon Dioxide 21 L Anion Gap 14 BUN 8 L Creatinine 0.77 Estim Creat Clear Calc 99.9 Estimated GFR > 60 Random Glucose 117 H Calcium 8.1 L Phosphorus 3.3 Magnesium 2.0 Albumin 3.5 Const: Other: Intubated, on ventilator, sedated Resp: Other: Remains on vent Cardio: Rate: tachycardic GI: Palpation (GI): Soft to palpation, not firm and nontender Progress Note: A&P Assessment and plan (1) Ileus: Status: Acute Assessment and Plan: Abdomen soft nondistended NG tube decreased Await return of GI function Plan for extubation once patient has BM 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 Stable otherwise with a benign exam Fall Risk Details Current Medications: Current Medications Generic Name Dose Route Start Last Admin Trade Name [place] PRN Reason Stop Dose Admin Chlorhexidine Gluconate 15 ml 10/17/20 09:00 10/22/20 07:51 Chlorhexidine Gluc Oral Rinse 15 Ml Mouthwash BUCCAL 15 ml TID RICA Administration Furosemide 20 mg 10/20/20 09:00 10/22/20 07:51 Furosemide 20 Mg/2 Ml Vial IVPUSH 20 mg DAILY RICA Administration Protocol Propofol 1,000 mg in 100 mls @ 0 mls/hr 10/19/20 18:15 10/22/20 11:14 Diprivan IVCONT 50 mcg/kg/min .Q0M RICA 33.45 mls/hr Administration Protocol Per Protocol Nicardipine HCl 25 mg/ Sodium 260 mls @ 0 mls/hr 10/20/20 12:15 10/22/20 12:54 Chloride IVCONT 10 mg/hr .Q0M RICA 104 mls/hr Administration Protocol Per Protocol Ceftriaxone Sodium 1 gm/ 50 mls @ 100 mls/hr 10/20/20 17:00 10/21/20 18:32 Sodium Chloride IV Infused Q24H RICA Infusion Lactulose 30 gm 10/22/20 09:00 10/22/20 08:02 Lactulose 20 Gm/30 Ml Solution PO 30 gm BID RICA Administration Metoclopramide HCl 10 mg 10/20/20 08:00 10/22/20 12:54 Metoclopramide Hcl 10 Mg/2 Ml Vial IVPUSH 10 mg Q6H RICA Administration Pantoprazole Sodium 40 mg 10/20/20 06:30 10/22/20 05:40 Pantoprazole Sodium 40 Mg/10 Ml Vial IVPUSH 40 mg DAILY@0630 RICA Administration Sodium Chloride 3 ml 10/17/20 08:00 10/22/20 07:51 0.9 % Sodium Chloride Flush 3 Ml Syringe IVFLUSH 3 ml QSHIFT RICA Administration Time Spent With Patient Time: Total time spent is greater than 50% in coordination of care (as documented) at patient's floor/unit and/or counseling patient: Time with patient: less than 15 minutes
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
--- NOTE | 2020-10-22 15:00 | PM.CCPN ---
Subjective Subjective Date of Service: 10/22/20 Interval History: 70-year-old gentleman with underlying history of diabetes, congestive heart failure, hypertension, CAD status post [place], chronic constipation, prior aspiration events admitted on 10/17/2020 with alteration of mental status, hypoxia, Gram-negative urinary tract infection, and possible aspiration episode requiring transfer to intensive care, intubation, and ventilatory support. CT abdomen/pelvis significant for partial small-bowel obstruction versus ileus, evaluated by General surgery and being managed conservatively. Extubated on 10/19/2020, however required re-intubation secondary to recurrent aspiration the same day. No events overnight. Still with no resolution of ileus versus possible obstruction. Physical Exam Vital Signs: Vital Signs: Last Vital Signs Temp 98.4 F 10/22/20 14:00 Pulse 87 10/22/20 14:00 Resp 18 10/22/20 14:00 BP 144/61 H 10/22/20 14:00 Pulse Ox 96 10/22/20 14:00 Body Mass Index 39.6 Const: General: no acute distress and other (Sedated on the vent) Eyes: Sclerae: sclerae normal EOM: EOMs intact bilaterally Neck: Neck: Yes no lymphadenopathy, Yes trachea midline and Yes supple Resp: Auscultation: crackles (Bibasilar) Cardio: Rate: regular rate Rhythm: regular rhythm Heart sounds: no gallops, no murmurs and no rubs GI: Palpation (GI): Soft to palpation and Other GI palpation findings present ( Nontender, distended) Auscultation: Hypoactive bowel sounds present Extrem: General: No clubbing, No cyanosis and Yes pedal edema (Trace bilateral) Objective Data Labs CBC & Chem 7: 10/22/20 05:28 10/22/20 05:28 Labs: Laboratory Results - last 24 hr 10/22/20 10/22/20 10/22/20 05:28 05:28 05:38 WBC 9.2 RBC 3.83 L Hgb 10.5 L Hct 31.9 L MCV 83.3 MCH 27.4 MCHC 32.9 RDW 13.2 Plt Count 258 MPV 8.9 L Immature Gran % (Auto) 4.0 H Neut % (Auto) 65.3 Lymph % (Auto) 16.3 L [place] % (Auto) 7.0 Eos % (Auto) 7.1 H Baso % (Auto) 0.3 Lymph # (Auto) 1.5 [place] # (Auto) 0.6 Eos # (Auto) 0.7 H Baso # (Auto) 0.0 Abs Immat Gran (auto) 0.37 H Absolute Neuts (auto) 6.0 Absolute Nucleated RBC 0.000 Nucleated RBC % (auto) 0.0 VBG pH 7.35 VBG pCO2 34 VBG pO2 73 VBG HCO3 19 L VBG O2 Saturation 93.0 VBG Base Excess -5.3 Sodium 142 Potassium 3.9 D Chloride 111 H Carbon Dioxide 21 L Anion Gap 14 BUN 8 L Creatinine 0.77 Estim Creat Clear Calc 99.9 Estimated GFR > 60 Random Glucose 117 H Calcium 8.1 L Phosphorus 3.3 Magnesium 2.0 Albumin 3.5 Microbiology Microbiology Results: Microbiology 10/17/20 00:34 Blood - Arterial Line Blood Culture - Final Coag negative Staphylococcus 10/17/20 00:34 Blood - Arterial Line Blood Culture - Final No growth after 5 days. 10/17/20 Unknown Urine clean catch - Clean Catch Midstream Urine Culture - Preliminary Proteus mirabilis Progress Note: A&P Assessment and plan (1) Congestive heart failure: Status: Acute Assessment and Plan: Assessment: 70-year-old gentleman with underlying history of congestive heart failure, diabetes mellitus, pulmonary aspiration, chronic constipation, and coronary artery disease admitted on 10/17/2020 with alteration of mental status, Gram-negative urinary tract infection, and possible pulmonary aspiration requiring ventilatory support. Plan: Neuro: No acute issues. Cardiac: No acute issues. Underlying history of congestive heart failure. Pulmonary: Acute hypoxic respiratory failure likely secondary to pulmonary aspiration requiring ventilatory support. Extubated 10/19/2020, however required re-intubation the same day secondary to recurrent aspiration. Continue to titrate off ventilatory support as tolerated. Renal: No acute issues. Endo: No acute issues. Underlying diabetes mellitus. GI: Ileus versus partial small-bowel obstruction. Evaluated by General surgery and no immediate intervention is required. Continue with NG decompression of gastric content. Continue with Reglan and lactulose. ID: Proteus urinary tract infection and aspiration pneumonitis versus aspiration pneumonia. Continue ceftriaxone for total of 7 days of antibiotics. Heme/Onc: No acute issues. Psych: No acute issues. Miscellaneous: No acute issues. Prophylaxis: Heparin, ppi Diet: Nothing by mouth Critical care time spent: 60 minutes (2) Afib: Status: Acute (3) Pulmonary aspiration: Status: Acute (4) Acute respiratory failure with hypoxia: Status: Acute (5) Ileus: Status: Acute (6) Urinary tract infection: Status: Acute Time Spent With Patient Total time spent with greater than 50% in coordination of care (as documented) at patient's floor/unit and/or counseling patient:: 0 Critical Care Time Critical Care Time (minutes): 60
[2020-10-22] MEDS: Heparin Sodium,Porcine 5,000 UNIT/ML VIAL 5000 UNIT SUBCUT ×2 (17:05→22:50)
[2020-10-22] MEDS: cefTRIAXone sodium 1 GM in 0.9 % Sodium Chloride 50 ML IV (17:07)
--- NOTE | 2020-10-22 19:16 | PC.NURSE ---
Vent settings unchanged AC 18, TV 450, FIO2 50%, PEEP 8, #7.5 24CM LIP, lungs dim//clear.SaO2 95-98. Nicardipine at 10mg/hr SBP just under 160mmHg. Propofol at 50mcg/kg/min moves all extrem, positive cough/gag. NGT tube put out 200ml aceves yellow bile, off suctioning now per MD. Abd distended, positive bowel sounds. No BM today, lactulose given.
[2020-10-23] VITALS (32 sets, daily range): BP systolic 134–168; BP diastolic 61–81; PULSE 79–126; RESP 18–26; TEMP 37–37.5; O2SAT 89–97; BMI 41.8
[2020-10-23] MEDS: Metoclopramide HCl 10 MG/2 ML VIAL IVPUSH ×4 (00:27→19:26)
[2020-10-23] MEDS: propofoL 1,000 MG/100 ML VIAL 33.45 MG IVCONT ×5 (00:27→12:31)
[2020-10-23] MEDS: niCARdipine HCL 25 MG in 0.9 % Sodium Chloride 250 ML 104 MG IVCONT ×8 (01:20→19:26)
[2020-10-23 05:21] LABS: Hematocrit 29.4 % (42-52); Hemoglobin 9.7 g/dl (14.0-18.0); Mean Corpuscular Volume 84.7 fL (80-98); Mean Platelet Volume 9.4 fL (9.4-12.4); Platelet Count 263 X10*3/uL (160-400); Red Blood Count 3.47 X10*6/uL (4.60-5.80); Red Cell Distribution Width 13.3 % (11.0-16.0); White Blood Count 8.1 X10*3/uL (4.8-10.8)
[2020-10-23 05:28] LABS: VBG Base Excess -6.2 mmol/L; VBG HCO3 18 mmol/L (22-26); VBG pCO2 32 mmHg; VBG pH 7.35 (7.32-7.43); VBG pO2 133 mmHg
[2020-10-23 06:01] LABS: Venous Blood Gas Refer to POC result
[2020-10-23] MEDS: Pantoprazole Sodium 40 MG/10 ML VIAL IVPUSH (06:05)
[2020-10-23 06:23] LABS: Albumin Level 3.4 g/dL (3.5-5.0); Anion Gap 14 (12-20); Blood Urea Nitrogen 8 mg/dL (9-16); Calcium 8.1 mg/dL (8.4-10.2); Carbon Dioxide 19 mmol/L (22-29); Chloride 114 mmol/L (96-108); Creatinine Clr Calc Pharmacy 101.3; Estimated Glomerular Filt Rate > 60; Glucose Random 109 mg/dL (60-115); Potassium 3.8 mmol/L (3.3-5.1); Sodium 143 mmol/L (135-145)
[2020-10-23 06:32] LABS: Band Neutrophils Percent 1 % (3-5); Basophils Abs Manual 0.1 X10*3/uL (0.0-0.3); Basophils Percent Manual 1 % (0-1); Eosinophils Absolute Manual 0.4 X10*3/UL (0.0-0.8); Eosinophils Percent Manual 5 % (0-4); Lymphocytes Absolute Manual 1.7 X10*3/uL (0.6-4.8); Lymphocytes Percent Manual 21 % (20-40); Metamyelocytes Absolute 0.2 X10*3/uL; Metamyelocytes Percent 2 %; Monocytes Absolute Manual 0.3 X10*3/uL (0.0-1.2); Monocytes Percent Manual 4 % (2-11); Myelocytes Absolute 0.1 X10*/uL; Myelocytes Percent 1 %; Neutrophils Absolute Manual 5.3 X10*3/uL (2.2-7.9); Neutrophils Percent Manual 65 % (45-73)
[2020-10-23 06:33] LABS: RBC Morphology NOTED
[2020-10-23 06:34] LABS: Platelet Estimate NORMAL (NORMAL); Platelet Morphology Comment NORMAL; Polychromasia 1+; Tear Drop Cells 1+
[2020-10-23] MEDS: Heparin Sodium,Porcine 5,000 UNIT/ML VIAL 5000 UNIT SUBCUT ×3 (07:31→23:09)
[2020-10-23] MEDS: Chlorhexidine Gluc Oral Rinse 15 ML MOUTHWASH BUCCAL ×3 (07:32→19:27)
[2020-10-23] MEDS: Furosemide 20 MG/2 ML VIAL IVPUSH (07:32)
[2020-10-23] MEDS: Lactulose 20 GM/30 ML SOLUTION 30 GM PO ×2 (07:32→19:26)
[2020-10-23] MEDS: 0.9 % Sodium Chloride Flush 3 ML SYRINGE IVFLUSH ×3 (07:41→23:09)
--- NOTE | 2020-10-23 09:51 | PM.PNGS ---
Subjective Subjective Date of Service: 10/23/20 Interval history: no new events has been stable no pressors sedated on vent no BMs reported Physical Exam Vital Signs: Vital Signs: Last Vital Signs Temp 99.1 F 10/23/20 09:00 Pulse 83 10/23/20 09:00 Resp 18 10/23/20 09:00 BP 134/70 10/23/20 09:00 Pulse Ox 93 10/23/20 09:00 Body Mass Index 41.8 Laboratory Results - last 24 hr 10/23/20 10/23/20 10/23/20 05:04 05:04 05:23 WBC 8.1 RBC 3.47 L Hgb 9.7 L Hct 29.4 L MCV 84.7 MCH 28.0 MCHC 33.0 RDW 13.3 Plt Count 263 MPV 9.4 Immature Gran % (A uto) Cancelled Neut % (Auto) Cancelled Lymph % (Auto) Cancelled [place] % (Auto) Cancelled Eos % (Auto) Cancelled Baso % (Auto) Cancelled Lymph # (Auto) Cancelled [place] # (Auto) Cancelled Eos # (Auto) Cancelled Baso # (Auto) Cancelled Abs Immat Gran (au to) Cancelled Absolute Neuts (au to) Cancelled Absolute Nucleated RBC 0.000 Nucleated RBC % (a uto) 0.0 Neutrophils % (Man ual) 65 Band Neutrophils % 1 L Lymphocytes % (Man ual) 21 Monocytes % (Manua l) 4 Eosinophils % (Man ual) 5 H Basophils % (Manua l) 1 Metamyelocytes % 2 Myelocytes % 1 Abs Neuts (Manual) 5.3 Lymphocytes # (Man ual) 1.7 Monocytes # (Manua l) 0.3 Eosinophils # (Man ual) 0.4 Basophils # (Manua l) 0.1 Metamyelocytes # 0.2 Myelocytes # 0.1 Platelet Estimate NORMAL Plt Morphology Com ment NORMAL RBC Morphology NOTED Polychromasia 1+ Tear Drop Cells 1+ VBG pH 7.35 VBG pCO2 32 VBG pO2 133 VBG HCO3 18 L VBG O2 Saturation 98.0 VBG Base Excess -6.2 Sodium 143 Potassium 3.8 Chloride 114 H Carbon Dioxide 19 L Anion Gap 14 BUN 8 L Creatinine 0.78 Estim Creat Clear Calc 101.3 Estimated GFR > 60 Random Glucose 109 Calcium 8.1 L Phosphorus 3.0 Magnesium 2.0 Albumin 3.4 L Const: Other: sedated, intubated Resp: Auscultation: clear to auscultation bilaterally Cardio: Rhythm: regular rhythm GI: Palpation (GI): Soft to palpation, not firm and no guarding Progress Note: A&P Assessment and plan (1) Ileus: Status: Acute Assessment and Plan: overall clinically much improved await BMs NGT output minimal abdl exam remains benign continue laxatives 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 Fall Risk Details Current Medications: Current Medications Generic Name Dose Route Start Last Admin Trade Name Freq PRN Reason Stop Dose Admin Chlorhexidine Gluconate 15 ml 10/17/20 09:00 10/23/20 07:32 Chlorhexidine Gluc Oral Rinse 15 Ml Mouthwash BUCCAL 15 ml TID RICA Administration Furosemide 20 mg 10/20/20 09:00 10/23/20 07:32 Furosemide 20 Mg/2 Ml Vial IVPUSH 20 mg DAILY RICA Administration Protocol Heparin Sodium (Porcine) 5,000 unit 10/22/20 16:00 10/23/20 07:31 Heparin Sodium,Porcine 5,000 Unit/Ml Vial SUBCUT 5,000 unit Q8H RICA Administration Propofol 1,000 mg in 100 mls @ 0 mls/hr 10/19/20 18:15 10/23/20 09:04 Diprivan IVCONT 50 mcg/kg/min .Q0M RICA 33.45 mls/hr Administration Protocol Per Protocol Nicardipine HCl 25 mg/ Sodium 260 mls @ 0 mls/hr 10/20/20 12:15 10/23/20 09:00 Chloride IVCONT 10 mg/hr .Q0M RICA 104 mls/hr Administration Protocol Per Protocol Ceftriaxone Sodium 1 gm/ 50 mls @ 100 mls/hr 10/20/20 17:00 10/22/20 18:01 Sodium Chloride IV Infused Q24H RICA Infusion Lactulose 30 gm 10/22/20 09:00 10/23/20 07:32 Lactulose 20 Gm/30 Ml Solution PO 30 gm BID RICA Administration Metoclopramide HCl 10 mg 10/20/20 08:00 10/23/20 07:31 Metoclopramide Hcl 10 Mg/2 Ml Vial IVPUSH 10 mg Q6H RICA Administration Sodium Chloride 3 ml 10/17/20 08:00 10/23/20 07:41 0.9 % Sodium Chloride Flush 3 Ml Syringe IVFLUSH 3 ml QSHIFT RICA Administration Time Spent With Patient Time: Total time spent is greater than 50% in coordination of care (as documented) at patient's floor/unit and/or counseling patient: Time with patient: less than 15 minutes
--- NOTE | 2020-10-23 09:54 | P.PNCC_ITS ---
Subjective Subjective Date of Service: 10/23/20 Interval History: 70-year-old gentleman with underlying history of diabetes, congestive heart failure, hypertension, CAD status post [place], chronic constipation, prior aspiration events admitted on 10/17/2020 with alteration of mental status, hypoxia, Gram-negative urinary tract infection, and possible aspiration episode requiring transfer to intensive care, intubation, and ventilatory support. CT abdomen/pelvis significant for partial small-bowel obstruction versus ileus, evaluated by General surgery and being managed conservatively. Extubated on 10/19/2020, however required re-intubation secondary to recurrent aspiration the same day. No events overnight. Still with no resolution of ileus versus possible obstruction. Physical Exam Vital Signs: Vital Signs: Last Vital Signs Temp 99.1 F 10/23/20 09:00 Pulse 83 10/23/20 09:00 Resp 18 10/23/20 09:00 BP 134/70 10/23/20 09:00 Pulse Ox 93 10/23/20 09:00 Body Mass Index 41.8 Const: General: no acute distress and other (Sedated on the vent) Eyes: Sclerae: sclerae normal EOM: EOMs intact bilaterally Neck: Neck: Yes no lymphadenopathy, Yes trachea midline and Yes supple Resp: Auscultation: crackles (Bibasilar) Cardio: Rate: regular rate Rhythm: regular rhythm Heart sounds: no gallops, no murmurs and no rubs GI: Palpation (GI): Soft to palpation and Other GI palpation findings present ( Nontender, distended) Auscultation: Hypoactive bowel sounds present Extrem: General: No clubbing, No cyanosis and Yes pedal edema (Trace bilateral) Objective Data Labs CBC & Chem 7: 10/23/20 05:04 10/23/20 05:04 Labs: Laboratory Results - last 24 hr 10/23/20 10/23/20 10/23/20 05:04 05:04 05:23 WBC 8.1 RBC 3.47 L Hgb 9.7 L Hct 29.4 L MCV 84.7 MCH 28.0 MCHC 33.0 RDW 13.3 Plt Count 263 MPV 9.4 Immature Gran % (Auto) Cancelled Neut % (Auto) Cancelled Lymph % (Auto) Cancelled [place] % (Auto) Cancelled Eos % (Auto) Cancelled Baso % (Auto) Cancelled Lymph # (Auto) Cancelled [place] # (Auto) Cancelled Eos # (Auto) Cancelled Baso # (Auto) Cancelled Abs Immat Gran (auto) Cancelled Absolute Neuts (auto) Cancelled Absolute Nucleated RBC 0.000 Nucleated RBC % (auto) 0.0 Neutrophils % (Manual) 65 Band Neutrophils % 1 L Lymphocytes % (Manual) 21 Monocytes % (Manual) 4 Eosinophils % (Manual) 5 H Basophils % (Manual) 1 Metamyelocytes % 2 Myelocytes % 1 Abs Neuts (Manual) 5.3 Lymphocytes # (Manual) 1.7 Monocytes # (Manual) 0.3 Eosinophils # (Manual) 0.4 Basophils # (Manual) 0.1 Metamyelocytes # 0.2 Myelocytes # 0.1 Platelet Estimate NORMAL Plt Morphology Comment NORMAL RBC Morphology NOTED Polychromasia 1+ Tear Drop Cells 1+ VBG pH 7.35 VBG pCO2 32 VBG pO2 133 VBG HCO3 18 L VBG O2 Saturation 98.0 VBG Base Excess -6.2 Sodium 143 Potassium 3.8 Chloride 114 H Carbon Dioxide 19 L Anion Gap 14 BUN 8 L Creatinine 0.78 Estim Creat Clear Calc 101.3 Estimated GFR > 60 Random Glucose 109 Calcium 8.1 L Phosphorus 3.0 Magnesium 2.0 Albumin 3.4 L Microbiology Microbiology Results: Microbiology 10/17/20 00:34 Blood - Arterial Line Blood Culture - Final Coag negative Staphylococcus 10/17/20 00:34 Blood - Arterial Line Blood Culture - Final No growth after 5 days. 10/17/20 Unknown Urine clean catch - Clean Catch Midstream Urine Culture - Preliminary Proteus mirabilis Progress Note: A&P Assessment and plan (1) Congestive heart failure: Status: Acute Assessment and Plan: Assessment: 70-year-old gentleman with underlying history of congestive heart failure, diabetes mellitus, pulmonary aspiration, chronic constipation, and coronary artery disease admitted on 10/17/2020 with alteration of mental status, Gram-negative urinary tract infection, and possible pulmonary aspiration requiring ventilatory support. Plan: Neuro: No acute issues. Cardiac: No acute issues. Underlying history of congestive heart failure. Now on Cardene drip secondary to inability to appropriately absorn enteral medications with underlying ileus. Pulmonary: Acute hypoxic respiratory failure likely secondary to pulmonary aspiration requiring ventilatory support. Extubated 10/19/2020, however required re-intubation the same day secondary to recurrent aspiration. Continue to titrate off ventilatory support as tolerated. Renal: No acute issues. Endo: No acute issues. Underlying diabetes mellitus. GI: Ileus versus partial small-bowel obstruction. Evaluated by General surgery and no immediate intervention is required. Continue with NG decompression of gastric content. Continue with Reglan and lactulose. ID: Proteus urinary tract infection and aspiration pneumonitis versus aspiration pneumonia. Continue ceftriaxone for total of 7 days of antibiotics. Heme/Onc: No acute issues. Psych: No acute issues. Miscellaneous: No acute issues. Prophylaxis: Heparin, ppi Diet: Trophic tube feeds Critical care time spent: 60 minutes (2) Afib: Status: Acute (3) Pulmonary aspiration: Status: Acute (4) Acute respiratory failure with hypoxia: Status: Acute (5) Ileus: Status: Acute (6) Urinary tract infection: Status: Acute Time Spent With Patient Total time spent with greater than 50% in coordination of care (as documented) at patient's floor/unit and/or counseling patient:: 0 Critical Care Time Critical Care Time (minutes): 60
[2020-10-23] MEDS: propofoL 1,000 MG/100 ML VIAL 20.07 MG IVCONT (14:27)
[2020-10-23] MEDS: cefTRIAXone sodium 1 GM in 0.9 % Sodium Chloride 50 ML IV (15:47)
--- NOTE | 2020-10-23 18:35 | PC.NURSE ---
TUBE FEEDS STARTED AT 1215. JEVITY AT 10 ML/HR. NO RESIDUALS. TOLERATING WELL. NO BM THIS SHIFT. MD AND SURGEON AWARE.
[2020-10-23] MEDS: propofoL 1,000 MG/100 ML VIAL 26.76 MG IVCONT ×2 (18:40→19:26)
[2020-10-23] MEDS: niCARdipine HCL 25 MG in 0.9 % Sodium Chloride 250 ML 156 MG IVCONT ×3 (21:41→23:11)
[2020-10-24] VITALS (32 sets, daily range): BP systolic 114–170; BP diastolic 51–100; PULSE 73–120; RESP 16–26; TEMP 36.9–37.5; O2SAT 9–100; BMI 42.5
[2020-10-24] MEDS: propofoL 1,000 MG/100 ML VIAL 26.76 MG IVCONT ×7 (01:46→22:59)
[2020-10-24] MEDS: niCARdipine HCL 25 MG in 0.9 % Sodium Chloride 250 ML 130 MG IVCONT ×2 (03:43→03:44)
[2020-10-24] MEDS: Metoclopramide HCl 10 MG/2 ML VIAL IVPUSH ×4 (03:44→19:46)
[2020-10-24 05:45] LABS: MANUAL DIFF FLAG NO
[2020-10-24 05:47] LABS: Basophils Absolute Auto 0.1 X10*3/uL (0.0-0.2); Basophils Percent Auto 0.8 % (0-2); Eosinophils Absolute Auto 0.6 X10*3/uL (0.0-0.4); Eosinophils Percent Auto 7.1 % (0-4); Hematocrit 31.4 % (42-52); Hemoglobin 10.2 g/dl (14.0-18.0); Imm Gran Abs Auto 0.42 X10*3/uL (0.00-0.03); Lymphocytes Absolute Auto 1.6 X10*3/uL (1.2-4.9); Lymphocytes Percent Auto 18.5 % (20-40); Mean Corpuscular HGB Conc 32.5 g/dl (31.0-36.0); Mean Corpuscular Hemoglobin 27.1 pg (27.0-33.0); Mean Corpuscular Volume 83.5 fL (80-98); Mean Platelet Volume 9.3 fL (9.4-12.4); Monocytes Absolute Auto 0.7 X10*3/uL (0.1-1.2); Monocytes Percent Auto 8.7 % (2-11); Neutrophils Percent Auto 59.9 % (45-73); Platelet Count 284 X10*3/uL (160-400); Red Blood Count 3.76 X10*6/uL (4.60-5.80); Red Cell Distribution Width 13.4 % (11.0-16.0); White Blood Count 8.4 X10*3/uL (4.8-10.8)
[2020-10-24 05:49] LABS: VBG Base Excess -4.8 mmol/L; VBG HCO3 19 mmol/L (22-26); VBG pCO2 31 mmHg; VBG pH 7.38 (7.32-7.43); VBG pO2 52 mmHg
[2020-10-24 05:59] LABS: Venous Blood Gas Refer to POC result
[2020-10-24] MEDS: niCARdipine HCL 25 MG in 0.9 % Sodium Chloride 250 ML 156 MG IVCONT ×10 (06:11→22:59)
[2020-10-24 06:22] LABS: Alanine Aminotransferase 31 U/L (0-40); Albumin Level 3.3 g/dL (3.5-5.0); Alkaline Phosphatase 69 U/L (39-117); Anion Gap 11 (12-20); Aspartate Amino Transferase 23 U/L (5-37); Bilirubin Total 0.2 mg/dL (0.0-1.0); Blood Urea Nitrogen 7 mg/dL (9-16); Calcium 8.1 mg/dL (8.4-10.2); Carbon Dioxide 22 mmol/L (22-29); Chloride 114 mmol/L (96-108); Creatinine Clr Calc Pharmacy 105.4; Estimated Glomerular Filt Rate > 60; Glucose Random 130 mg/dL (60-115); Phosphorus 2.5 mg/dL (2.7-4.5); Potassium 3.7 mmol/L (3.3-5.1); Sodium 143 mmol/L (135-145); Total Protein 5.8 g/dL (6.5-8.0)
[2020-10-24] MEDS: 0.9 % Sodium Chloride Flush 3 ML SYRINGE IVFLUSH ×3 (07:25→19:46)
[2020-10-24] MEDS: Lactulose 20 GM/30 ML SOLUTION 30 GM PO ×2 (07:25→19:46)
[2020-10-24] MEDS: Chlorhexidine Gluc Oral Rinse 15 ML MOUTHWASH BUCCAL ×3 (07:25→19:46)
[2020-10-24] MEDS: Heparin Sodium,Porcine 5,000 UNIT/ML VIAL 5000 UNIT SUBCUT ×3 (07:25→22:59)
[2020-10-24] MEDS: Furosemide 20 MG/2 ML VIAL IVPUSH (07:26)
[2020-10-24] MEDS: Potassium Phosphate 30 MMOL in 0.9 % Sodium Chloride 500 ML 85 MMOL IV (09:32)
--- NOTE | 2020-10-24 11:35 | PM.PNGS ---
Subjective Subjective Date of Service: 10/24/20 Interval history: remains on vent sedated as per nurse - no BM reported on low does enteral feeds Physical Exam Vital Signs: Vital Signs: Last Vital Signs Temp 99.1 F 10/24/20 10:00 Pulse 119 H 10/24/20 10:27 Resp 25 H 10/24/20 10:00 BP 159/72 H 10/24/20 10:27 Pulse Ox 91 L 10/24/20 10:00 Body Mass Index 42.5 Laboratory Results - last 24 hr 10/24/20 10/24/20 10/24/20 05:33 05:33 05:43 WBC 8.4 RBC 3.76 L Hgb 10.2 L Hct 31.4 L MCV 83.5 MCH 27.1 MCHC 32.5 RDW 13.4 Plt Count 284 MPV 9.3 L Immature Gran % (A uto) 5.0 H Neut % (Auto) 59.9 Lymph % (Auto) 18.5 L [place] % (Auto) 8.7 Eos % (Auto) 7.1 H Baso % (Auto) 0.8 Lymph # (Auto) 1.6 [place] # (Auto) 0.7 Eos # (Auto) 0.6 H Baso # (Auto) 0.1 Abs Immat Gran (au to) 0.42 H Absolute Neuts (au to) 5.0 Absolute Nucleated RBC 0.000 Nucleated RBC % (a uto) 0.0 VBG pH 7.38 VBG pCO2 31 VBG pO2 52 VBG HCO3 19 L VBG O2 Saturation 85.0 VBG Base Excess -4.8 Sodium 143 Potassium 3.7 Chloride 114 H Carbon Dioxide 22 Anion Gap 11 L BUN 7 L Creatinine 0.75 Estim Creat Clear Calc 105.4 Estimated GFR > 60 Random Glucose 130 H Calcium 8.1 L Phosphorus 2.5 L Magnesium 2.0 Total Bilirubin 0.2 AST 23 D ALT 31 Alkaline Phosphata se 69 Total Protein 5.8 L Albumin 3.3 L Const: Other: sedated, on vent Resp: Other: intubated Cardio: Rate: tachycardic GI: Other: no apparent tenderness to deep palpation Palpation (GI): Soft to palpation, not firm and no guarding Progress Note: A&P Assessment and plan (1) Ileus: Status: Acute Assessment and Plan: ffup KUB ordered otherwise abd remains benign no leukocytosis bicarb ok on low dose enteral feeds rest of care as per ICU team will continue to follow Fall Risk Details Current Medications: Current Medications Generic Name Dose Route Start Last Admin Trade Name [place] PRN Reason Stop Dose Admin Chlorhexidine Gluconate 15 ml 10/17/20 09:00 10/24/20 07:25 Chlorhexidine Gluc Oral Rinse 15 Ml Mouthwash BUCCAL 15 ml TID RICA Administration Furosemide 20 mg 10/20/20 09:00 10/24/20 07:26 Furosemide 20 Mg/2 Ml Vial IVPUSH 20 mg DAILY RICA Administration Protocol Heparin Sodium (Porcine) 5,000 unit 10/22/20 16:00 10/24/20 07:25 Heparin Sodium,Porcine 5,000 Unit/Ml Vial SUBCUT 5,000 unit Q8H RICA Administration Propofol 1,000 mg in 100 mls @ 0 mls/hr 10/19/20 18:15 10/24/20 09:54 Diprivan IVCONT 40 mcg/kg/min .Q0M RICA 26.76 mls/hr Administration Protocol Per Protocol Nicardipine HCl 25 mg/ Sodium 260 mls @ 0 mls/hr 10/20/20 12:15 10/24/20 10:27 Chloride IVCONT 15 mg/hr .Q0M RICA 156 mls/hr Administration Protocol Per Protocol Ceftriaxone Sodium 1 gm/ 50 mls @ 100 mls/hr 10/20/20 17:00 10/23/20 16:20 Sodium Chloride IV Infused Q24H RICA Infusion Potassium Phosphate 30 mmol/ 510 mls @ 85 mls/hr 10/24/20 08:22 10/24/20 09:32 Sodium Chloride IV 10/24/20 14:21 85 mls/hr ONCE ONE Administration Lactulose 30 gm 10/22/20 09:00 10/24/20 07:25 Lactulose 20 Gm/30 Ml Solution PO 30 gm BID RICA Administration Metoclopramide HCl 10 mg 10/20/20 08:00 10/24/20 07:26 Metoclopramide Hcl 10 Mg/2 Ml Vial IVPUSH 10 mg Q6H RICA Administration Sodium Chloride 3 ml 10/17/20 08:00 10/24/20 07:25 0.9 % Sodium Chloride Flush 3 Ml Syringe IVFLUSH 3 ml QSHIFT RICA Administration Time Spent With Patient Time: Total time spent is greater than 50% in coordination of care (as documented) at patient's floor/unit and/or counseling patient: Time with patient: 15 - 24 minutes
--- NOTE | 2020-10-24 11:36 | PM.CCPN ---
Subjective Subjective Date of Service: 10/24/20 Interval History: ICU day 8 for acute hypoxic respiratory failure, pulmonary aspiration, ileus versus partial small-bowel obstruction, Proteus UTI 70-year-old gentleman with underlying history of diabetes, congestive heart failure, hypertension, CAD status post [place], chronic constipation, prior aspiration events admitted on 10/17/2020 with alteration of mental status, hypoxia, Gram-negative urinary tract infection, and aspiration episode requiring transfer to intensive care, intubation, and ventilatory support. CT abdomen/pelvis significant for partial small-bowel obstruction versus ileus, evaluated by General surgery and being managed conservatively. Extubated on 10/19/2020, however required re-intubation secondary to recurrent aspiration the same day. No events overnight. No return of bowel function yet. Physical Exam Vital Signs: Vital Signs: Last Vital Signs Temp 99.1 F 10/24/20 10:00 Pulse 119 H 10/24/20 10:27 Resp 25 H 10/24/20 10:00 BP 159/72 H 10/24/20 10:27 Pulse Ox 91 L 10/24/20 10:00 Body Mass Index 42.5 Const: General: no acute distress and other (Sedated on the vent, follows commands with sedation vacation) Nutritional Appearance: obese Eyes: Sclerae: sclerae normal EOM: EOMs intact bilaterally Neck: Neck: Yes no lymphadenopathy, Yes trachea midline and Yes supple Resp: Auscultation: crackles (Bibasilar) Cardio: Rate: tachycardic Rhythm: regular rhythm Heart sounds: no gallops, no murmurs and no rubs GI: Palpation (GI): Soft to palpation and Other GI palpation findings present ( Nontender, distended) Auscultation: Hypoactive bowel sounds present Extrem: General: No clubbing, No cyanosis and Yes pedal edema (1+ bilateral) Objective Data Labs CBC & Chem 7: 10/24/20 05:33 10/24/20 05:33 Labs: Laboratory Results - last 24 hr 10/24/20 10/24/20 10/24/20 05:33 05:33 05:43 WBC 8.4 RBC 3.76 L Hgb 10.2 L Hct 31.4 L MCV 83.5 MCH 27.1 MCHC 32.5 RDW 13.4 Plt Count 284 MPV 9.3 L Immature Gran % (Auto) 5.0 H Neut % (Auto) 59.9 Lymph % (Auto) 18.5 L [place] % (Auto) 8.7 Eos % (Auto) 7.1 H Baso % (Auto) 0.8 Lymph # (Auto) 1.6 [place] # (Auto) 0.7 Eos # (Auto) 0.6 H Baso # (Auto) 0.1 Abs Immat Gran (auto) 0.42 H Absolute Neuts (auto) 5.0 Absolute Nucleated RBC 0.000 Nucleated RBC % (auto) 0.0 VBG pH 7.38 VBG pCO2 31 VBG pO2 52 VBG HCO3 19 L VBG O2 Saturation 85.0 VBG Base Excess -4.8 Sodium 143 Potassium 3.7 Chloride 114 H Carbon Dioxide 22 Anion Gap 11 L BUN 7 L Creatinine 0.75 Estim Creat Clear Calc 105.4 Estimated GFR > 60 Random Glucose 130 H Calcium 8.1 L Phosphorus 2.5 L Magnesium 2.0 Total Bilirubin 0.2 AST 23 D ALT 31 Alkaline Phosphatase 69 Total Protein 5.8 L Albumin 3.3 L Microbiology Microbiology Results: Microbiology 10/17/20 Unknown Urine clean catch - Clean Catch Midstream Urine Culture - Final Proteus mirabilis 10/17/20 00:34 Blood - Arterial Line Blood Culture - Final Coag negative Staphylococcus 10/17/20 00:34 Blood - Arterial Line Blood Culture - Final No growth after 5 days. Progress Note: A&P Assessment and plan (1) Congestive heart failure: Status: Acute Assessment and Plan: Assessment: 70-year-old gentleman with underlying history of congestive heart failure, diabetes mellitus, pulmonary aspiration, chronic constipation, and coronary artery disease admitted on 10/17/2020 with alteration of mental status, Gram-negative urinary tract infection, and possible pulmonary aspiration requiring ventilatory support. Plan: Neuro: No acute issues. Cardiac: No acute issues. Underlying history of congestive heart failure and AFib. Now on Cardene drip secondary to inability to appropriately absorb enteral medications with underlying ileus. Pulmonary: Acute hypoxic respiratory failure secondary to pulmonary aspiration requiring ventilatory support. Extubated 10/19/2020, however required re-intubation the same day secondary to recurrent aspiration. Continue to titrate off ventilatory support as tolerated. Renal: No acute issues. Endo: No acute issues. Underlying diabetes mellitus. GI: Ileus versus partial small-bowel obstruction. Evaluated by General surgery and no immediate intervention is required. Continue with NG decompression of gastric content. Continue with Reglan and lactulose, continue on trophic tube feeds. ID: Proteus urinary tract infection and aspiration pneumonitis versus aspiration pneumonia. Ceftriaxone day 02/16 today. Heme/Onc: No acute issues. Psych: No acute issues. Miscellaneous: No acute issues. Prophylaxis: Heparin, famotidine Diet: Trophic tube feeds Critical care time spent: 60 minutes (2) Afib: Status: Acute (3) Pulmonary aspiration: Status: Acute (4) Acute respiratory failure with hypoxia: Status: Acute (5) Ileus: Status: Acute (6) Urinary tract infection: Status: Acute Time Spent With Patient Total time spent with greater than 50% in coordination of care (as documented) at patient's floor/unit and/or counseling patient:: 0 Critical Care Time Critical Care Time (minutes): 60
[2020-10-24] MEDS: Famotidine/PF 20 MG/2 ML VIAL IVPUSH (12:25)
[2020-10-24] MEDS: Sodium Phosphate,Mono-Dibasic 133 ML ENEMA PR (14:12)
--- NOTE | 2020-10-24 15:08 | PC.NURSE ---
AFTER A FLEET AND SOAP SUDS ENEMA PT HAD A MODERATE, CARRILLO FORMED BM. TUBE FEEDS ON HOLD WHILE ENEMAS WERE GIVEN.
[2020-10-24] MEDS: cefTRIAXone sodium 1 GM in 0.9 % Sodium Chloride 50 ML IV (16:48)
[2020-10-25] VITALS (31 sets, daily range): BP systolic 109–189; BP diastolic 45–97; PULSE 64–99; RESP 16–27; TEMP 35.7–37.1; O2SAT 87–99; BMI 42.9
[2020-10-25] MEDS: niCARdipine HCL 25 MG in 0.9 % Sodium Chloride 250 ML 156 MG IVCONT ×3 (01:44→05:03)
[2020-10-25] MEDS: propofoL 1,000 MG/100 ML VIAL 33.45 MG IVCONT ×4 (01:44→10:18)
[2020-10-25] MEDS: Metoclopramide HCl 10 MG/2 ML VIAL IVPUSH ×4 (01:44→20:30)
[2020-10-25 05:29] LABS: VBG Base Excess -5.2 mmol/L; VBG HCO3 18 mmol/L (22-26); VBG pCO2 31 mmHg; VBG pH 7.38 (7.32-7.43); VBG pO2 48 mmHg
[2020-10-25 05:34] LABS: Venous Blood Gas Refer to POC result
[2020-10-25 05:50] LABS: MANUAL DIFF FLAG NO
[2020-10-25 05:57] LABS: Basophils Absolute Auto 0.1 X10*3/uL (0.0-0.2); Basophils Percent Auto 0.8 % (0-2); Eosinophils Absolute Auto 0.6 X10*3/uL (0.0-0.4); Hematocrit 31.5 % (42-52); Hemoglobin 10.1 g/dl (14.0-18.0); Imm Gran Abs Auto 0.39 X10*3/uL (0.00-0.03); Lymphocytes Absolute Auto 1.8 X10*3/uL (1.2-4.9); Lymphocytes Percent Auto 23.4 % (20-40); Mean Corpuscular HGB Conc 32.1 g/dl (31.0-36.0); Mean Corpuscular Hemoglobin 26.8 pg (27.0-33.0); Mean Corpuscular Volume 83.6 fL (80-98); Mean Platelet Volume 9.6 fL (9.4-12.4); Monocytes Absolute Auto 0.7 X10*3/uL (0.1-1.2); Neutrophils Absolute Auto 4.2 X10*3/uL (2.0-8.3); Neutrophils Percent Auto 53.8 % (45-73); Platelet Count 286 X10*3/uL (160-400); Red Blood Count 3.77 X10*6/uL (4.60-5.80); Red Cell Distribution Width 13.6 % (11.0-16.0); White Blood Count 7.8 X10*3/uL (4.8-10.8)
[2020-10-25 06:33] LABS: Alanine Aminotransferase 28 U/L (0-40); Albumin Level 3.2 g/dL (3.5-5.0); Alkaline Phosphatase 68 U/L (39-117); Anion Gap 12 (12-20); Aspartate Amino Transferase 20 U/L (5-37); Bilirubin Total 0.2 mg/dL (0.0-1.0); Blood Urea Nitrogen 5 mg/dL (9-16); Calcium 7.9 mg/dL (8.4-10.2); Carbon Dioxide 21 mmol/L (22-29); Chloride 114 mmol/L (96-108); Creatinine Clr Calc Pharmacy 114.5; Estimated Glomerular Filt Rate > 60; Glucose Random 116 mg/dL (60-115); Magnesium 1.9 mg/dL (1.6-2.6); Potassium 3.5 mmol/L (3.3-5.1); Sodium 143 mmol/L (135-145); Total Protein 5.5 g/dL (6.5-8.0)
[2020-10-25] MEDS: Lactulose 20 GM/30 ML SOLUTION 30 GM PO ×2 (07:23→20:28)
[2020-10-25] MEDS: Chlorhexidine Gluc Oral Rinse 15 ML MOUTHWASH BUCCAL ×3 (07:23→20:31)
[2020-10-25] MEDS: 0.9 % Sodium Chloride Flush 3 ML SYRINGE IVFLUSH ×2 (07:23→13:26)
[2020-10-25] MEDS: Furosemide 20 MG/2 ML VIAL 40 MG IVPUSH (07:24)
[2020-10-25] MEDS: Famotidine/PF 20 MG/2 ML VIAL IVPUSH (07:24)
[2020-10-25] MEDS: Heparin Sodium,Porcine 5,000 UNIT/ML VIAL 5000 UNIT SUBCUT ×2 (07:24→16:55)
--- NOTE | 2020-10-25 09:04 | MHC.CM.PN ---
Addendum entered by Sandy Christianson 10/25/20 14:21: Call placed to [facility] to inquire on case status: The assigned CM will contact [facility] as soon as he/she is available. Will await call back Original Note: Pt remains intubated in ICU with possible aspiration pna. No immediate plans to extubate: no return of bowel function. Call placed to pt's next of contact, Divya who wanted to speak with pt's RN to inquire on his clinical status. CM to follow for finalization of d/c plans
[2020-10-25] MEDS: Magnesium Citrate 300 ML SOLUTION PO ×2 (10:21→14:25)
--- NOTE | 2020-10-25 10:35 | MHC.CLN ---
F/U RECOMMEND PROMOTE AT MAX GOAL RATE 30CC/HR TO PROVIDE 720KCALS (1603KCALS WITH SEDATION; 26KCALS/KG BASED ON IBW), 45G PROTEIN (.7G/KG), 604CC FREE WATER MONITOR TOLERANCE, RESIDUALS AND LYTES FOLLOWING
[2020-10-25] MEDS: propofoL 1,000 MG/100 ML VIAL 30.11 MG IVCONT ×4 (13:25→23:47)
--- NOTE | 2020-10-25 17:54 | PC.NURSE ---
MAGNESIUM CITRATE 300 ML X 2 ADMINISTER. 2 BMS POST ADMINISTRATION. ONE SMALL AND ONE MODERATE, CARRILLO/SEEDY, PASTY. TUBE FEEDS ON HOLD DUE TO LARGE RESIDUAL OF MAGNESIUM CITRATE WHEN ASSESSING RESIDUALS. AWARE. NICARDIPINE GTT REMAINS OFF SINCE 0600 TODAY. VSS. AFEBRILE. VENT SETTINGS CHANGED TO AC 18 TV 450 PEEP 10 FI02 55%. CAREGIVER UPDATED BY THIS RN.
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
[2020-10-25] MEDS: Metoprolol Tartrate 5 MG/5 ML VIAL IVPUSH (20:22)
[2020-10-25] MEDS: Nystatin Powder 15 GM BOTTLE 1 APPL TOPICAL (22:06)
[2020-10-25] MEDS: Metoprolol Tartrate 25 MG TABLET PO (22:08)
[2020-10-26] VITALS (34 sets, daily range): BP systolic 128–195; BP diastolic 51–102; PULSE 56–116; RESP 12–92; TEMP 36.1–37.4; O2SAT 91–954; BMI 38.5
[2020-10-26] MEDS: 0.9 % Sodium Chloride Flush 3 ML SYRINGE IVFLUSH ×2 (00:30→07:33)
[2020-10-26] MEDS: Heparin Sodium,Porcine 5,000 UNIT/ML VIAL 5000 UNIT SUBCUT ×3 (00:37→16:59)
[2020-10-26] MEDS: propofoL 1,000 MG/100 ML VIAL 33.45 MG IVCONT ×5 (01:30→13:35)
[2020-10-26] MEDS: Metoclopramide HCl 10 MG/2 ML VIAL IVPUSH ×2 (02:44→07:34)
[2020-10-26 05:34] LABS: VBG Base Excess -6.7 mmol/L; VBG HCO3 18 mmol/L (22-26); VBG pCO2 35 mmHg; VBG pH 7.31 (7.32-7.43); VBG pO2 44 mmHg
[2020-10-26 05:34] LABS: Hematocrit 34.6 % (42-52); Hemoglobin 11.1 g/dl (14.0-18.0); Mean Corpuscular HGB Conc 32.1 g/dl (31.0-36.0); Mean Corpuscular Hemoglobin 26.9 pg (27.0-33.0); Mean Platelet Volume 9.3 fL (9.4-12.4); Platelet Count 281 X10*3/uL (160-400); Red Blood Count 4.12 X10*6/uL (4.60-5.80); White Blood Count 8.3 X10*3/uL (4.8-10.8)
[2020-10-26 05:36] LABS: Venous Blood Gas Refer to POC result
[2020-10-26 06:02] LABS: Band Neutrophils Percent 3 % (3-5); Eosinophils Absolute Manual 0.6 X10*3/UL (0.0-0.8); Eosinophils Percent Manual 7 % (0-4); Lymphocytes Absolute Manual 1.7 X10*3/uL (0.6-4.8); Lymphocytes Percent Manual 21 % (20-40); Metamyelocytes Absolute 0.5 X10*3/uL; Metamyelocytes Percent 6 %; Monocytes Absolute Manual 0.2 X10*3/uL (0.0-1.2); Monocytes Percent Manual 3 % (2-11); Myelocytes Absolute 0.1 X10*/uL; Myelocytes Percent 1 %; Neutrophils Absolute Manual 5.1 X10*3/uL (2.2-7.9); Neutrophils Percent Manual 59 % (45-73)
[2020-10-26 06:03] LABS: RBC Morphology NORMAL
[2020-10-26 06:04] LABS: Large Platelet PRESENT; Platelet Estimate NORMAL (NORMAL); Platelet Morphology Comment NOTED
[2020-10-26 06:21] LABS: Alanine Aminotransferase 37 U/L (0-40); Albumin Level 3.5 g/dL (3.5-5.0); Alkaline Phosphatase 78 U/L (39-117); Anion Gap 13 (12-20); Aspartate Amino Transferase 28 U/L (5-37); Bilirubin Total 0.6 mg/dL (0.0-1.0); Blood Urea Nitrogen 5 mg/dL (9-16); Calcium 8.6 mg/dL (8.4-10.2); Carbon Dioxide 20 mmol/L (22-29); Chloride 115 mmol/L (96-108); Creatinine Clr Calc Pharmacy 98.2; Estimated Glomerular Filt Rate > 60; Glucose Random 100 mg/dL (60-115); Potassium 3.7 mmol/L (3.3-5.1); Sodium 144 mmol/L (135-145); Total Protein 6.3 g/dL (6.5-8.0)
--- NOTE | 2020-10-26 08:08 | P.CDIC_ITS ---
CDI Concurrent Query Service Date: 10/26/20 Documentation Clarification: Please clarify if you are treating a proba ble/suspected/likely or confirmed: Specifics: Chronic diastolic and/or systolic Congestive heart failure Please specify if known or unclinically determined NO EVIDENCE THAT I SEE THAT THE PATIENT HAS CHRONIC DIASTOLIC OR SYSTOLIC CHF, AND I AM NOT TREATING HIM FOR SUCH. Provider Response: Acute Respiratory Failure PLEASE DO NOT DELETE/MODIFY EXISTING CONTENT Additional information is needed in order to code to the highest accuracy and appropriate Severity of Illness (SOI). Please clarify the information noted below in your progress notes and discharge summary. Risk Factors/Clinical Indicators/Treatments Past medical history of Congestive heart failure BNP 48 Home med: Torsemide 1 Tab PO daily H&P: pressure support for BP, bedside echo performed showed good biventricular systolic function w no primary valve or pericardial disease. Furosemide CDS: Essie Fontaine CCS, CDIS Contact Number: Please Review the information above and exercise your independent professional judgment in responding to the query. If you concur, pleas document in the PROGRESS NOTES and DISCHARGE SUMMARY. If you do not agree with the query, please document in the query above. THIS QUERY IS PART OF THE PERMANENT MEDICAL RECORD
[2020-10-26] MEDS: Famotidine/PF 20 MG/2 ML VIAL IVPUSH (09:11)
[2020-10-26] MEDS: Furosemide 20 MG/2 ML VIAL 40 MG IVPUSH (09:11)
[2020-10-26] MEDS: Chlorhexidine Gluc Oral Rinse 15 ML MOUTHWASH BUCCAL ×3 (09:25→21:18)
[2020-10-26] MEDS: Nystatin Powder 15 GM BOTTLE 1 APPL TOPICAL ×3 (09:25→21:18)
[2020-10-26] MEDS: Metoprolol Tartrate 25 MG TABLET PO (09:25)
[2020-10-26] MEDS: Lactulose 20 GM/30 ML SOLUTION 30 GM PO (09:25)
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
[2020-10-26] MEDS: Dextrose 5 % 1,000 ML 50 ML IVCONT (14:18)
[2020-10-26] MEDS: Magnesium Sulfate/D5W 1 GM/100 ML PIGGYBACK IV (14:18)
[2020-10-26] MEDS: Potassium Chloride Packet 20 MEQ PACKET 40 MEQ G-TUBE (14:21)
--- NOTE | 2020-10-26 16:10 | P.PNGS_ITS ---
Subjective Subjective Date of Service: 10/26/20 Interval history: Has had BMs - now as rectal tube in view of multiple episodes of loose stools Being weaned off the vent Tolerating low-dose enteral feeds via NG tube Physical Exam Vital Signs: Vital Signs: Last Vital Signs Temp 98.8 F 10/26/20 15:50 Pulse 90 10/26/20 15:50 Resp 20 10/26/20 15:50 BP 163/97 H 10/26/20 15:50 Pulse Ox 92 10/26/20 15:50 Body Mass Index 38.5 Laboratory Results - last 24 hr 10/26/20 10/26/20 10/26/20 05:24 05:24 05:28 WBC 8.3 RBC 4.12 L Hgb 11.1 L Hct 34.6 L MCV 84.0 MCH 26.9 L MCHC 32.1 RDW 14.0 Plt Count 281 MPV 9.3 L Immature Gran % (A uto) Cancelled Neut % (Auto) Cancelled Lymph % (Auto) Cancelled [place] % (Auto) Cancelled Eos % (Auto) Cancelled Baso % (Auto) Cancelled Lymph # (Auto) Cancelled [place] # (Auto) Cancelled Eos # (Auto) Cancelled Baso # (Auto) Cancelled Abs Immat Gran (au to) Cancelled Absolute Neuts (au to) Cancelled Absolute Nucleated RBC 0.000 Nucleated RBC % (a uto) 0.0 Neutrophils % (Man ual) 59 Band Neutrophils % 3 Lymphocytes % (Man ual) 21 Monocytes % (Manua l) 3 Eosinophils % (Man ual) 7 H Metamyelocytes % 6 Myelocytes % 1 Abs Neuts (Manual) 5.1 Lymphocytes # (Man ual) 1.7 Monocytes # (Manua l) 0.2 Eosinophils # (Man ual) 0.6 Metamyelocytes # 0.5 Myelocytes # 0.1 Platelet Estimate NORMAL Large Platelets PRESENT Plt Morphology Com ment NOTED RBC Morphology NORMAL VBG pH 7.31 L VBG pCO2 35 VBG pO2 44 VBG HCO3 18 L VBG O2 Saturation 74.0 VBG Base Excess -6.7 Sodium 144 Potassium 3.7 Chloride 115 H Carbon Dioxide 20 L Anion Gap 13 BUN 5 L Creatinine 0.77 Estim Creat Clear Calc 98.2 Estimated GFR > 60 Random Glucose 100 Calcium 8.6 D Total Bilirubin 0.6 AST 28 ALT 37 Alkaline Phosphata se 78 Total Protein 6.3 L Albumin 3.5 Const: Other: Remains on the ventilator, intubated and sedated Resp: Other: On the ventilator Cardio: Rhythm: regular rhythm GI: Other: Soft, no guarding or rebound, no obvious tenderness Progress Note: A&P Assessment and plan (1) Ileus: Status: Acute Assessment and Plan: Has had good BMs - responded well to laxatives and enema Tolerating NG tube feeds Abdomen remains soft, benign, nondistended Ileus appears resolved Management as per ICU staff Re-consult as needed Fall Risk Details Current Medications: Current Medications Generic Name Dose Route Start Last Admin Trade Name Freq PRN Reason Stop Dose Admin Chlorhexidine Gluconate 15 ml 10/17/20 09:00 10/26/20 14:18 Chlorhexidine Gluc Oral Rinse 15 Ml Mouthwash BUCCAL 15 ml TID RICA Administration Famotidine 20 mg 10/24/20 11:45 10/26/20 09:11 Famotidine/Pf 20 Mg/2 Ml Vial IVPUSH 20 mg DAILY RICA Administration Furosemide 40 mg 10/25/20 09:00 10/26/20 09:11 Furosemide 20 Mg/2 Ml Vial IVPUSH 40 mg DAILY RCIA Administration Protocol Heparin Sodium (Porcine) 5,000 unit 10/22/20 16:00 10/26/20 07:33 Heparin Sodium,Porcine 5,000 Unit/Ml Vial SUBCUT 5,000 unit Q8H RICA Administration Propofol 1,000 mg in 100 mls @ 0 mls/hr 10/19/20 18:15 10/26/20 13:35 Diprivan IVCONT 50 mcg/kg/min .Q0M RICA 33.45 mls/hr Administration Protocol Per Protocol Dextrose 1,000 mls @ 50 mls/hr 10/26/20 12:45 10/26/20 14:18 D5w IVCONT 50 mls/hr .Q20H RICA Administration Metoprolol Tartrate 25 mg 10/25/20 21:00 10/26/20 09:25 Metoprolol Tartrate 25 Mg Tablet PO 25 mg BID RICA Administration Protocol Nystatin 1 appl 10/25/20 21:00 10/26/20 14:29 Nystatin Powder 15 Gm Bottle TOPICAL 1 appl TID RICA Administration Protocol Sodium Chloride 3 ml 10/17/20 08:00 10/26/20 07:33 0.9 % Sodium Chloride Flush 3 Ml Syringe IVFLUSH 3 ml QSHIFT RICA Administration Time Spent With Patient Time: Total time spent is greater than 50% in coordination of care (as documented) at patient's floor/unit and/or counseling patient: Time with patient: 15 - 24 minutes
[2020-10-26] MEDS: hydrALAZINE HCl 20 MG/ML VIAL IVPUSH (17:16)
--- NOTE | 2020-10-26 18:12 | PC.NURSE ---
Addendum entered by [employer] 10/26/20 18:38: person named delaney thibodeaux called multiple times to request visitation w pt. 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 per nursing cd manufacturing supervisor, risk management is investigating pts case and there are to be no visitors for pt while investigation is underway. Original Note: pt on mechanical ventilation, reintubated on 10/22/20 d/t hypoxemia. pt tolerating vent well, vs hemodynamically stable throughout day. per retail sales manager, pt would stand to benefit from extubation. pt extubated at 1515 this afternoon. slowly becoming more alert. pt is alert to name only, able to participate in simple one sentence responses w this rn. pt trialed out of soft restraints, immediately pulling at nasal cannula and heart monitor. intermittently yelling at passing by staff, sts you bitch! to staff nurse. pt remains in frequent observation, given one time dose of hydralazine for hypertension.
[2020-10-26] MEDS: Metoprolol Tartrate 5 MG/5 ML VIAL IVPUSH (21:17)
[2020-10-27] VITALS (26 sets, daily range): BP systolic 151–212; BP diastolic 67–98; PULSE 77–103; RESP 10–77; TEMP 36.4–38.3; O2SAT 91–95; BMI 38.5
[2020-10-27] MEDS: Metoprolol Tartrate 5 MG/5 ML VIAL IVPUSH ×4 (01:25→18:19)
[2020-10-27] MEDS: Heparin Sodium,Porcine 5,000 UNIT/ML VIAL 5000 UNIT SUBCUT ×3 (01:26→16:14)
[2020-10-27] MEDS: 0.9 % Sodium Chloride Flush 3 ML SYRINGE IVFLUSH ×3 (01:26→16:15)
--- NOTE | 2020-10-27 01:35 | PC.NURSE ---
pt is tolerating extubation. he has been alert and interactive. his speech is slow,simple and appropriate. he is confused to time and place. he will localize hands toward central line and oseguera catheter. his lower extremities are grossly weak. lower legs have venous stasis color changes. scrotum,groin folds reddened with fungal areas in groin. the following plan - 1. will keep npo until speech evaluation of swallowing later in the am 2. iv hydration with d5w underway 3. supplemental o2 4lpm 4. lopressor 5 mg iv implemented stat and then q 6hr for hr> 100 and sbp>170 mmhg
[2020-10-27 07:55] LABS: MANUAL DIFF FLAG NO
[2020-10-27 07:59] LABS: Basophils Absolute Auto 0.1 X10*3/uL (0.0-0.2); Basophils Percent Auto 0.5 % (0-2); Eosinophils Absolute Auto 0.5 X10*3/uL (0.0-0.4); Eosinophils Percent Auto 4.4 % (0-4); Hematocrit 34.2 % (42-52); Hemoglobin 11.3 g/dl (14.0-18.0); Imm Gran Abs Auto 0.33 X10*3/uL (0.00-0.03); Imm Gran Pct Auto 3.1 % (0.0-0.4); Lymphocytes Absolute Auto 1.9 X10*3/uL (1.2-4.9); Lymphocytes Percent Auto 17.9 % (20-40); Mean Corpuscular Hemoglobin 27.1 pg (27.0-33.0); Mean Platelet Volume 9.6 fL (9.4-12.4); Monocytes Absolute Auto 0.9 X10*3/uL (0.1-1.2); Monocytes Percent Auto 8.8 % (2-11); Neutrophils Absolute Auto 6.8 X10*3/uL (2.0-8.3); Neutrophils Percent Auto 65.3 % (45-73); Platelet Count 314 X10*3/uL (160-400); Red Blood Count 4.17 X10*6/uL (4.60-5.80); Red Cell Distribution Width 14.1 % (11.0-16.0); White Blood Count 10.5 X10*3/uL (4.8-10.8)
[2020-10-27 08:00] LABS: Venous Blood Gas Refer to POC result
[2020-10-27 08:01] LABS: VBG HCO3 20 mmol/L (22-26); VBG pCO2 32 mmHg; VBG pH 7.41 (7.32-7.43); VBG pO2 50 mmHg
[2020-10-27 08:06] LABS: INTERNATIONAL NORM RATIO 1.1 (0.9-1.1); Prothrombin Time 13.1 SEC (10.8-13.0)
[2020-10-27] MEDS: Furosemide 20 MG/2 ML VIAL 40 MG IVPUSH (08:19)
[2020-10-27] MEDS: Chlorhexidine Gluc Oral Rinse 15 ML MOUTHWASH BUCCAL (08:19)
[2020-10-27] MEDS: Famotidine/PF 20 MG/2 ML VIAL IVPUSH (08:19)
[2020-10-27 08:23] LABS: Alanine Aminotransferase 41 U/L (0-40); Albumin Level 3.6 g/dL (3.5-5.0); Alkaline Phosphatase 77 U/L (39-117); Anion Gap 11 (12-20); Aspartate Amino Transferase 31 U/L (5-37); Bilirubin Total 0.7 mg/dL (0.0-1.0); Blood Urea Nitrogen 4 mg/dL (9-16); Calcium 8.4 mg/dL (8.4-10.2); Carbon Dioxide 24 mmol/L (22-29); Chloride 109 mmol/L (96-108); Creatinine Clr Calc Pharmacy 105.1; Estimated Glomerular Filt Rate > 60; Glucose Random 124 mg/dL (60-115); Potassium 3.1 mmol/L (3.3-5.1); Sodium 141 mmol/L (135-145); Total Protein 6.1 g/dL (6.5-8.0)
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
--- NOTE | 2020-10-27 09:38 | MHC.CLN ---
F/U PT IS EXTUBATED CURRENTLY NPO PENDING SWALLOW EVAL IF DIET TO ADVANCE RECOMMEND 1800DM 2GM NA IN ADDITION TO DIRECTOR AGENCY & STRATEGIC PARTNERSHIPS RECS NOTED FRAGILE SKIN FOLLOWING
--- NOTE | 2020-10-27 09:57 | MHC.SLORD ---
Order received for bedside swallow evaluation. Per chart review, pt was extubated at 15:15 yesterday afternoon. TENDER COORDINATOR spoke to RN over phone and discussed importance of waiting 24-48 hours post extubation for bedside swallow evaluation to minimize risk of silent aspiration. Pt also has hx significant for aspiration, thus waiting for PO is imperative to reduce risk of aspiration during swallow evaluation. Pt is not appropriate for PO trials this morning. TENDER COORDINATOR will re-attempt tomorrow morning. Name: Daniel Lozada Date of : 1950 Age: 70 Date of Registration: 10/17/20 Speech Language Pathology Order Status:
[2020-10-27] MEDS: Dextrose 5 % 1,000 ML 50 ML IVCONT (10:08)
[2020-10-27] MEDS: Nystatin Powder 15 GM BOTTLE 1 APPL TOPICAL ×3 (10:08→22:17)
--- NOTE | 2020-10-27 13:37 | MHC.CM.PN ---
Pt has been successfully extubated and is on 4 liters n/c. Met with pt: slow to respond and orientation is slightly impaired but pleasant and conversant. Will allow for return of baseline A&O x4 status to discuss d/c planning. Pt will need a PT/OT eval for better assessment of function and determination of d/c needs
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
[2020-10-27] MEDS: Potassium Chloride/H20 40 MEQ/100 ML PIGGYBACK 25 MEQ IV (16:14)
[2020-10-27] MEDS: Metoprolol Tartrate 25 MG TABLET PO (20:59)
[2020-10-27] MEDS: Potassium Chloride/H20 10 MEQ/100 ML PIGGYBACK 100 MEQ IV ×2 (21:25→22:46)
[2020-10-28] VITALS (7 sets, daily range): BP systolic 138–186; BP diastolic 58–100; PULSE 78–102; RESP 18–30; TEMP 35.8–37.2; O2SAT 93–99; BMI 38.7
[2020-10-28] MEDS: Heparin Sodium,Porcine 5,000 UNIT/ML VIAL 5000 UNIT SUBCUT ×3 (00:21→16:45)
[2020-10-28] MEDS: Potassium Chloride/H20 10 MEQ/100 ML PIGGYBACK 100 MEQ IV ×2 (00:22→01:25)
[2020-10-28] MEDS: 0.9 % Sodium Chloride Flush 3 ML SYRINGE IVFLUSH ×2 (00:31→10:53)
[2020-10-28] MEDS: Metoprolol Tartrate 25 MG TABLET PO (01:07)
[2020-10-28 09:22] LABS: Anion Gap 14 (12-20); Blood Urea Nitrogen 7 mg/dL (9-16); Calcium 8.7 mg/dL (8.4-10.2); Carbon Dioxide 24 mmol/L (22-29); Chloride 109 mmol/L (96-108); Estimated Glomerular Filt Rate > 60; Glucose Random 108 mg/dL (60-115); Magnesium 2.1 mg/dL (1.6-2.6); Potassium 3.9 mmol/L (3.3-5.1); Sodium 143 mmol/L (135-145)
[2020-10-28] MEDS: Famotidine/PF 20 MG/2 ML VIAL IVPUSH (10:52)
[2020-10-28] MEDS: Furosemide 20 MG/2 ML VIAL 40 MG IVPUSH (10:53)
--- NOTE | 2020-10-28 14:32 | MHC.CM.PN ---
Left VM for Rah Max @ [facility] re: Daniel to provide update. Awaiting return call.
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
[2020-10-28] MEDS: Nystatin Powder 15 GM BOTTLE 1 APPL TOPICAL ×2 (14:47→20:11)
--- NOTE | 2020-10-28 15:27 | MHC.CM.PN ---
ALICIA T/W has updated Nursing Supervision not to allow Kristopher Garza any access to this Patient.
--- NOTE | 2020-10-28 16:18 | P.PNIM_ITS ---
Subjective Subjective Date of Service: 10/28/20 Interval History: this am on 3.5L O2 confused, speech inappropriate alert no fever per DENTAL TECHNICIAN INSTRUCTOR, NDD 1 solids + thin liquids Physical Exam Vital Signs: Vital Signs: Last Vital Signs Temp 97.4 F 10/28/20 15:07 Pulse 87 10/28/20 15:07 Resp 20 10/28/20 15:07 BP 180/70 H 10/28/20 15:07 Pulse Ox 96 10/28/20 15:07 Body Mass Index 38.7 Gen: in no acute distress HEENT: sclera anicteric, moist mucus membranes Neck: supple Lungs: diminished at bases bilaterally Heart: regular rate and rhythm, no murmurs Abd: soft, obese, non-tender, somewhat distended Ext: no edema Skin: warm/well-perfused Neuro: alert and oriented x3, no focal findings Psych: appropriate affect Objective Data Current Medications Generic Name Dose Route Start Last Admin Trade Name Freq PRN Reason Stop Dose Admin Famotidine 20 mg 10/24/20 11:45 10/28/20 10:52 Famotidine/Pf 20 Mg/2 Ml Vial IVPUSH 20 mg DAILY RICA Administration Furosemide 40 mg 10/25/20 09:00 10/28/20 10:53 Furosemide 20 Mg/2 Ml Vial IVPUSH 40 mg DAILY RICA Administration Protocol Heparin Sodium (Porcine) 5,000 unit 10/22/20 16:00 10/28/20 10:53 Heparin Sodium,Porcine 5,000 Unit/Ml Vial SUBCUT 5,000 unit Q8H RICA Administration Metoprolol Tartrate 25 mg 10/25/20 21:00 10/27/20 20:59 Metoprolol Tartrate 25 Mg Tablet PO 25 mg BID RICA Administration Protocol Metoprolol Tartrate 5 mg 10/26/20 21:05 10/27/20 16:14 Metoprolol Tartrate 5 Mg/5 Ml Vial IVPUSH 5 mg Q6H PRN Administration tachycardia Nystatin 1 appl 10/25/20 21:00 10/28/20 14:47 Nystatin Powder 15 Gm Bottle TOPICAL 1 appl TID RICA Administration Protocol Sodium Chloride 3 ml 10/17/20 08:00 10/28/20 10:53 0.9 % Sodium Chloride Flush 3 Ml Syringe IVFLUSH 3 ml QSHIFT RICA Administration Labs CBC & Chem 7: 10/27/20 07:44 10/28/20 08:16 Labs: Laboratory Results - last 24 hr 10/28/20 08:16 Sodium 143 Potassium 3.9 D Chloride 109 H Carbon Dioxide 24 Anion Gap 14 BUN 7 L D Creatinine 0.75 Estim Creat Clear Calc 101.0 Estimated GFR > 60 Random Glucose 108 Calcium 8.7 Magnesium 2.1 Microbiology Microbiology Results: Microbiology 10/17/20 Unknown Urine clean catch - Clean Catch Midstream Urine Culture - Final Proteus mirabilis 10/17/20 00:34 Blood - Arterial Line Blood Culture - Final Coag negative Staphylococcus 10/17/20 00:34 Blood - Arterial Line Blood Culture - Final No growth after 5 days. Assessment and Plan (1) Aspiration pneumonitis: Status: Acute (2) Acute on chronic respiratory failure with hypoxia and hypercapnia: Status: Acute (3) Urinary tract infection: Status: Acute Assessment and Plan: hospital d#12 70yo M c DM2, CHF, HTN, CAD s/p UT, chronic constipation emergently intubated upon presentation 10/17 for hypoxic respiratory failure, altered mental status due to aspiration found to have pSBO vs ileus extubated 10/19, reintubated due to recurrent aspsiration extubated 10/26, stepped down to IMC 10/27 # acute hypoxic respiratory failure - wean O2 as tolerated # pSBO/ileus/constipation - responded to bowel regimen # aspiration pneuonia # UTI, Proteus - s/p 7d of antibiotics - DENTAL TECHNICIAN INSTRUCTOR evaluation # CHF exacerbation - continue furosemide # HTN - continue metoprolol; add amlodipine # STIVEN - resolved # hypoK - resolved # hyperNa - resolved # DM2 - BG controlled without meds # VTE ppx - UFH # dispo - lives alone. concern of AUTO TECH fraud/neglect with 2 open cases per CM
[2020-10-28] MEDS: amLODIPine Besylate 5 MG TABLET PO (16:45)
[2020-10-28] MEDS: Sennosides/Docusate Sodium TABLET 2 TAB PO (20:11)
[2020-10-29] VITALS (7 sets, daily range): BP systolic 148–189; BP diastolic 56–92; PULSE 81–99; RESP 18–20; TEMP 36.2–37.6; O2SAT 94–98; BMI 39.1
[2020-10-29] MEDS: Heparin Sodium,Porcine 5,000 UNIT/ML VIAL 5000 UNIT SUBCUT ×3 (00:14→16:34)
[2020-10-29] MEDS: 0.9 % Sodium Chloride Flush 3 ML SYRINGE IVFLUSH ×3 (00:15→16:37)
--- NOTE | 2020-10-29 04:19 | PC.NURSE ---
Patient had an 8 beat of vtach at approximately 0400. Patient had no complaints upon assessment- denies chest pain or discomfort. Dr. Arvizu the hospitalist, was made aware. No further orders placed.
[2020-10-29 06:24] LABS: MANUAL DIFF FLAG NO
[2020-10-29 06:47] LABS: Basophils Absolute Auto 0.1 X10*3/uL (0.0-0.2); Basophils Percent Auto 0.6 % (0-2); Eosinophils Absolute Auto 0.3 X10*3/uL (0.0-0.4); Eosinophils Percent Auto 2.3 % (0-4); Imm Gran Abs Auto 0.21 X10*3/uL (0.00-0.03); Imm Gran Pct Auto 1.9 % (0.0-0.4); Lymphocytes Absolute Auto 1.9 X10*3/uL (1.2-4.9); Lymphocytes Percent Auto 16.9 % (20-40); Mean Corpuscular HGB Conc 32.5 g/dl (31.0-36.0); Mean Corpuscular Hemoglobin 27.4 pg (27.0-33.0); Mean Corpuscular Volume 84.2 fL (80-98); Monocytes Percent Auto 9.2 % (2-11); Neutrophils Absolute Auto 7.7 X10*3/uL (2.0-8.3); Neutrophils Percent Auto 69.1 % (45-73); Platelet Count 325 X10*3/uL (160-400); Red Blood Count 4.75 X10*6/uL (4.60-5.80); Red Cell Distribution Width 14.5 % (11.0-16.0); White Blood Count 11.1 X10*3/uL (4.8-10.8)
[2020-10-29 07:05] LABS: Anion Gap 14 (12-20); Blood Urea Nitrogen 10 mg/dL (9-16); Calcium 9.2 mg/dL (8.4-10.2); Carbon Dioxide 26 mmol/L (22-29); Chloride 107 mmol/L (96-108); Creatinine Clr Calc Pharmacy 100.2; Estimated Glomerular Filt Rate > 60; Glucose Random 118 mg/dL (60-115); Potassium 3.8 mmol/L (3.3-5.1); Sodium 143 mmol/L (135-145)
[2020-10-29] MEDS: Sennosides/Docusate Sodium TABLET 2 TAB PO ×2 (09:09→21:25)
[2020-10-29] MEDS: amLODIPine Besylate 5 MG TABLET 10 MG PO (09:10)
[2020-10-29] MEDS: Furosemide 20 MG/2 ML VIAL 40 MG IVPUSH (09:13)
[2020-10-29] MEDS: Nystatin Powder 15 GM BOTTLE 1 APPL TOPICAL ×3 (09:20→21:25)
--- NOTE | 2020-10-29 10:06 | MHC.SLORD ---
GAS WELL DRILLING MANAGER attempted to see pt for dysphagia therapy this morning. Pt refused. He stated he did not want to try anything, as he just finished breakfast. Pt is content with PUREED (NDD1) solids and THIN liquids. Per RN, pt is tolerating recommended diet without difficulty. GAS WELL DRILLING MANAGER continues to recommend PUREED (NDD1) solids and THIN liquids by controlled cup sip or straw sip utilizing straw pinch to control bolus size. Pills CRUSHED in PUREE. Gilbert aspiration precautions. 1:1 feed. Name: Daniel Lozada Date of : 1950 Age: 70 Date of Registration: 10/17/20 Speech Language Pathology Order Status:
--- NOTE | 2020-10-29 11:38 | MHC.CM.PN ---
CM met with Patient, who appeared unable to answer CM questions with a clear understanding; CM then spoke with HCP/Skip @ [phone]. Skip is aware of PT's recommendation for STR and she gave permission to make area SNF referrals (OTHER THAN [facility]!). CM will follow for dc planning.
[2020-10-29 12:23] LABS: Estimated Average Glucose 148 mg/dL; Hemoglobin A1c % 6.8 %
--- NOTE | 2020-10-29 12:48 | HO.PM.IMPN ---
Subjective Subjective Date of Service: 10/29/20 Interval History: down to 2L O2 confused- verbal but not really making much sense, unclear baseline mental status does not appear in distress and denies pain or respiratory problems Physical Exam Vital Signs: Vital Signs: Last Vital Signs Temp 99.6 F 10/29/20 12:00 Pulse 98 10/29/20 12:00 Resp 20 10/29/20 12:00 BP 187/92 H 10/29/20 12:00 Pulse Ox 94 10/29/20 12:00 Body Mass Index 39.1 Gen: in no acute distress HEENT: sclera anicteric, moist mucus membranes Neck: supple, CVC to RIJ without signs of infection Lungs: diminished at bases bilaterally Heart: regular rate and rhythm, no murmurs Abd: soft, obese, non-tender, somewhat distended Ext: no edema Skin: warm/well-perfused Neuro: alert, non-focal but disoriented Psych: calm Objective Data Current Medications Generic Name Dose Route Start Last Admin Trade Name Freq PRN Reason Stop Dose Admin Amlodipine Besylate 10 mg 10/29/20 09:00 10/29/20 09:10 Amlodipine Besylate 5 Mg Tablet PO 10 mg DAILY RICA Administration Protocol Famotidine 20 mg 10/29/20 21:00 Famotidine 20 Mg Tablet PO BEDTIME RICA Furosemide 40 mg 10/25/20 09:00 10/29/20 09:13 Furosemide 20 Mg/2 Ml Vial IVPUSH 40 mg DAILY RICA Administration Protocol Heparin Sodium (Porcine) 5,000 unit 10/22/20 16:00 10/29/20 09:13 Heparin Sodium,Porcine 5,000 Unit/Ml Vial SUBCUT 5,000 unit Q8H RICA Administration Metoprolol Tartrate 25 mg 10/25/20 21:00 10/27/20 20:59 Metoprolol Tartrate 25 Mg Tablet PO 25 mg BID RICA Administration Protocol Metoprolol Tartrate 5 mg 10/26/20 21:05 10/27/20 16:14 Metoprolol Tartrate 5 Mg/5 Ml Vial IVPUSH 5 mg Q6H PRN Administration tachycardia Nystatin 1 appl 10/25/20 21:00 10/29/20 09:20 Nystatin Powder 15 Gm Bottle TOPICAL 1 appl TID RICA Administration Protocol Senna/Docusate Sodium 2 tab 10/28/20 21:00 10/29/20 09:09 Sennosides/Docusate Sodium Tablet PO 2 tab BID RICA Administration Sodium Chloride 3 ml 10/17/20 08:00 10/29/20 09:25 0.9 % Sodium Chloride Flush 3 Ml Syringe IVFLUSH 3 ml QSHIFT RICA Administration Labs CBC & Chem 7: 10/29/20 05:55 10/29/20 05:55 Labs: Laboratory Results - last 24 hr 10/29/20 10/29/20 10/29/20 05:55 05:55 11:46 WBC 11.1 H RBC 4.75 Hgb 13.0 L Hct 40.0 L MCV 84.2 MCH 27.4 MCHC 32.5 RDW 14.5 Plt Count 325 MPV 10.0 Immature Gran % (Auto) 1.9 H Neut % (Auto) 69.1 Lymph % (Auto) 16.9 L [place] % (Auto) 9.2 Eos % (Auto) 2.3 Baso % (Auto) 0.6 Lymph # (Auto) 1.9 [place] # (Auto) 1.0 Eos # (Auto) 0.3 Baso # (Auto) 0.1 Abs Immat Gran (auto) 0.21 H Absolute Neuts (auto) 7.7 Absolute Nucleated RBC 0.000 Nucleated RBC % (auto) 0.0 Sodium 143 Potassium 3.8 Chloride 107 Carbon Dioxide 26 Anion Gap 14 BUN 10 Creatinine 0.76 Estim Creat Clear Calc 100.2 Estimated GFR > 60 Random Glucose 118 H Estimat Average Glucose 148 Hemoglobin A1c % 6.8 Calcium 9.2 Impressions Chest X-Ray 10/29/20 10:17 IMPRESSION: Slightly enlarged cardiac silhouette. Low lung volumes. Improved bilateral airspace disease from previous exams. No evidence of CHF. Microbiology Microbiology Results: Microbiology 10/17/20 Unknown Urine clean catch - Clean Catch Midstream Urine Culture - Final Proteus mirabilis 10/17/20 00:34 Blood - Arterial Line Blood Culture - Final Coag negative Staphylococcus 10/17/20 00:34 Blood - Arterial Line Blood Culture - Final No growth after 5 days. Assessment and Plan (1) Aspiration pneumonitis: Status: Acute (2) Acute on chronic respiratory failure with hypoxia and hypercapnia: Status: Acute (3) Urinary tract infection: Status: Acute Assessment and Plan: hospital d#13 70yo M c DM2, CHF, HTN, CAD s/p MD, chronic constipation emergently intubated upon presentation 10/17 for hypoxic respiratory failure, altered mental status due to aspiration found to have pSBO vs ileus extubated 10/19, reintubated due to recurrent aspsiration extubated 10/26, stepped down to IMC 10/27 # acute hypoxic respiratory failure - wean O2 as tolerated # pSBO/ileus/constipation - responded to bowel regimen # aspiration pneuonia # UTI, Proteus - s/p 7d of antibiotics - JUTE BAG CLIPPER evaluation: NDD1 solids, thin liquids # CHF exacerbation - resolved- change to PO furosemide # HTN - continue metoprolol; increase amlodipine # STIVEN - resolved # hypoK - resolved # hyperNa - resolved # DM2, A1c 6.8 - BG controlled without meds # VTE ppx - UFH # dispo - lives alone. concern of EMPLOYEE RELATIONS ASSISTANT fraud/neglect with 2 open cases per CM. will need to go to STR.
[2020-10-29 13:54] LABS: B Type Natriuretic Peptide 166 pg/mL (<100)
--- NOTE | 2020-10-29 15:28 | MHC.CM.PN ---
This health underwriter spoke with Rah from [employer]. Updated Rah re: Daniel's D/C plan. This health underwriter also placed call to [place] [employer] and reported Daniel's concern of Ms. Lomas continuing to live in the patient's home. They are sending a car to the home.
[2020-10-29] MEDS: Famotidine 20 MG TABLET PO (21:25)
[2020-10-30] VITALS (7 sets, daily range): BP systolic 162–183; BP diastolic 72–84; PULSE 68–100; RESP 18–20; TEMP 35.9–37.1; O2SAT 95–99; BMI 36.5
[2020-10-30] MEDS: Heparin Sodium,Porcine 5,000 UNIT/ML VIAL 5000 UNIT SUBCUT ×4 (00:24→23:10)
[2020-10-30] MEDS: 0.9 % Sodium Chloride Flush 3 ML SYRINGE IVFLUSH ×4 (00:24→20:09)
[2020-10-30] MEDS: amLODIPine Besylate 5 MG TABLET 10 MG PO (08:48)
[2020-10-30] MEDS: Sennosides/Docusate Sodium TABLET 2 TAB PO ×2 (08:48→20:05)
[2020-10-30] MEDS: Furosemide 40 MG TABLET PO (08:49)
[2020-10-30] MEDS: Nystatin Powder 15 GM BOTTLE 1 APPL TOPICAL ×3 (08:52→20:06)
[2020-10-30 11:02] LABS: COVID-19 Test Negative (Negative); IDNOW Serial# 9DD0AD1C
--- NOTE | 2020-10-30 12:20 | HO.PM.IMPN ---
Subjective Subjective Date of Service: 10/30/20 Interval History: denies dyspnea or chest pain less confused today Physical Exam Vital Signs: Vital Signs: Last Vital Signs Temp 98.2 F 10/30/20 11:27 Pulse 95 10/30/20 11:27 Resp 20 10/30/20 11:27 BP 110/55 L 10/30/20 11:27 Pulse Ox 98 10/30/20 11:27 Body Mass Index 36.5 Gen: in no acute distress HEENT: sclera anicteric, moist mucus membranes Neck: supple Lungs: diminished at bases bilaterally Heart: regular rate and rhythm, no murmurs Abd: soft, obese, non-tender, somewhat distended Ext: no edema Skin: warm/well-perfused Neuro: alert, non-focal but disoriented Psych: calm Objective Data Current Medications Generic Name Dose Route Start Last Admin Trade Name Freq PRN Reason Stop Dose Admin Amlodipine Besylate 10 mg 10/29/20 09:00 10/30/20 08:48 Amlodipine Besylate 5 Mg Tablet PO 10 mg DAILY RICA Administration Protocol Famotidine 20 mg 10/29/20 21:00 10/29/20 21:25 Famotidine 20 Mg Tablet PO 20 mg BEDTIME RICA Administration Furosemide 40 mg 10/30/20 09:00 10/30/20 08:49 Furosemide 40 Mg Tablet PO 40 mg DAILY RICA Administration Protocol Heparin Sodium (Porcine) 5,000 unit 10/22/20 16:00 10/30/20 08:48 Heparin Sodium,Porcine 5,000 Unit/Ml Vial SUBCUT 5,000 unit Q8H RICA Administration Metoprolol Tartrate 5 mg 10/26/20 21:05 10/27/20 16:14 Metoprolol Tartrate 5 Mg/5 Ml Vial IVPUSH 5 mg Q6H PRN Administration tachycardia Metoprolol Tartrate 50 mg 10/30/20 09:02 Metoprolol Tartrate 25 Mg Tablet PO BID [facility] Protocol Nystatin 1 appl 10/25/20 21:00 10/30/20 08:52 Nystatin Powder 15 Gm Bottle TOPICAL 1 appl TID RICA Administration Protocol Senna/Docusate Sodium 2 tab 10/28/20 21:00 10/30/20 08:48 Sennosides/Docusate Sodium Tablet PO 2 tab BID RICA Administration Sodium Chloride 3 ml 10/17/20 08:00 10/30/20 08:49 0.9 % Sodium Chloride Flush 3 Ml Syringe IVFLUSH 3 ml QSHIFT RICA Administration Labs CBC & Chem 7: 10/29/20 05:55 10/29/20 05:55 Labs: Laboratory Results - last 24 hr 10/29/20 10/29/20 10/30/20 11:46 11:46 10:30 Estimat Average Glucose 148 Hemoglobin A1c % 6.8 B-Natriuretic Peptide 166 H COVID-19 (AC) Negative COVID-19 Clin Com See Note Microbiology Microbiology Results: Microbiology 10/17/20 Unknown Urine clean catch - Clean Catch Midstream Urine Culture - Final Proteus mirabilis 10/17/20 00:34 Blood - Arterial Line Blood Culture - Final Coag negative Staphylococcus 10/17/20 00:34 Blood - Arterial Line Blood Culture - Final No growth after 5 days. Assessment and Plan (1) Aspiration pneumonitis: Status: Acute (2) Acute on chronic respiratory failure with hypoxia and hypercapnia: Status: Acute (3) Urinary tract infection: Status: Acute Assessment and Plan: hospital d#14 70yo M c DM2, CHF, HTN, CAD s/p MA, chronic constipation emergently intubated upon presentation 10/17 for hypoxic respiratory failure, altered mental status due to aspiration found to have pSBO vs ileus extubated 10/19, reintubated due to recurrent aspiration 10/19 extubated 10/26, stepped down to IMC 10/27 # acute hypoxic respiratory failure - wean O2 as tolerated # pSBO/ileus/constipation - responded to bowel regimen # aspiration pnemonia # UTI, Proteus - s/p 7d of antibiotics - GAS DESULFURIZER evaluation: NDD1 solids, thin liquids # CHF exacerbation - resolved- changed to PO furosemide # HTN - continue amlodipine; increase metoprolol # STIVEN - resolved # hypoK - resolved # hyperNa - resolved # DM2, A1c 6.8 - BG controlled without meds # VTE ppx - UFH # dispo - lives alone. concern of ELECTRO OPTICAL ENGINEER fraud/neglect with 2 open cases per CM. will need to go to STR (COVID-19 AC negative). will updated guardian Skip Whitaker, .
--- NOTE | 2020-10-30 14:04 | MHC.CM.PN ---
CM CALLED PT'S HCP JOSE G AT 2:05PM ([phone]) TO NOTIFY HER OF PT'S ANTICIPATED D/C ON Sunday10/31/20 AND REVIEW IMM, PER HCP CM CONTACTED TO HER AND WAS ASKING ABOUT PT'S BANK HOWEVER SHE COULDN'T REMEMBER AT THE TIME, HCP NOW RECALLS PT USED [facility]. CM DIRECTOR WHO HAD CALLED HCP HAS BEEN NOTIFIED.
--- NOTE | 2020-10-30 14:23 | MHC.CM.PN ---
PER HOSPITALIST PT SHOULD BE READY FOR D/C TOMORROW 10/31/20, REFERRALS UPDATED AND [facility] DOES HAVE A BED AVAILABLE FOR PT. CM WILL CONT TO FOLLW FOR D/C NEEDS.
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
--- NOTE | 2020-10-30 18:03 | PC.NURSE ---
Addendum entered by Kaila Duarte 10/30/20 18:09: Patient having poor oral intake, eating about 25% of all meals, 1 to 1 feed. Original Note: Patient appears more alert today than the condition given in report. More talkative, forming sentences appropriately. [place] catheter applied x 2, patient keeps removing. No further issues.
[2020-10-30] MEDS: Metoprolol Tartrate 25 MG TABLET 50 MG PO (20:04)
[2020-10-30] MEDS: Famotidine 20 MG TABLET PO (20:05)
[2020-10-31] VITALS (7 sets, daily range): BP systolic 166–197; BP diastolic 74–88; PULSE 64–91; RESP 18; TEMP 36.3–36.6; O2SAT 94–96; BMI 36.1
[2020-10-31] MEDS: 0.9 % Sodium Chloride Flush 3 ML SYRINGE IVFLUSH (08:41)
[2020-10-31] MEDS: Sennosides/Docusate Sodium TABLET 2 TAB PO (08:42)
[2020-10-31] MEDS: Heparin Sodium,Porcine 5,000 UNIT/ML VIAL 5000 UNIT SUBCUT (08:42)
[2020-10-31] MEDS: amLODIPine Besylate 5 MG TABLET 10 MG PO (08:42)
[2020-10-31] MEDS: Furosemide 40 MG TABLET PO (08:42)
[2020-10-31] MEDS: Metoprolol Tartrate 100 MG TABLET PO (08:43)
[2020-10-31] MEDS: Nystatin Powder 15 GM BOTTLE 1 APPL TOPICAL ×2 (08:47→16:58)
--- NOTE | 2020-10-31 13:18 | P.PNIM_ITS ---
Subjective Subjective Date of Service: 10/31/20 Interval History: no medical complaints but refusing to go to [facility] Physical Exam Vital Signs: Vital Signs: Last Vital Signs Temp 98 F 10/31/20 11:46 Pulse 70 10/31/20 11:46 Resp 18 10/31/20 11:46 BP 166/83 H 10/31/20 11:46 Pulse Ox 95 10/31/20 11:46 Body Mass Index 36.1 Gen: in no acute distress HEENT: sclera anicteric, moist mucus membranes Neck: supple Lungs: clear bilaterally Heart: regular rate and rhythm, no murmurs Abd: soft, obese, non-tender, somewhat distended Ext: no edema Skin: warm/well-perfused Neuro: alert, non-focal but disoriented Psych: calm Objective Data Current Medications Generic Name Dose Route Start Last Admin Trade Name Freq PRN Reason Stop Dose Admin Amlodipine Besylate 10 mg 10/29/20 09:00 10/31/20 08:42 Amlodipine Besylate 5 Mg Tablet PO 10 mg DAILY RICA Administration Protocol Famotidine 20 mg 10/29/20 21:00 10/30/20 20:05 Famotidine 20 Mg Tablet PO 20 mg BEDTIME RICA Administration Furosemide 40 mg 10/30/20 09:00 10/31/20 08:42 Furosemide 40 Mg Tablet PO 40 mg DAILY RICA Administration Protocol Heparin Sodium (Porcine) 5,000 unit 10/22/20 16:00 10/31/20 08:42 Heparin Sodium,Porcine 5,000 Unit/Ml Vial SUBCUT 5,000 unit Q8H RICA Administration Metoprolol Tartrate 5 mg 10/26/20 21:05 10/27/20 16:14 Metoprolol Tartrate 5 Mg/5 Ml Vial IVPUSH 5 mg Q6H PRN Administration tachycardia Metoprolol Tartrate 100 mg 10/31/20 09:00 10/31/20 08:43 Metoprolol Tartrate 100 Mg Tablet PO 100 mg BID RICA Administration Protocol Nystatin 1 appl 10/25/20 21:00 10/31/20 08:47 Nystatin Powder 15 Gm Bottle TOPICAL 1 appl TID RICA Administration Protocol Senna/Docusate Sodium 2 tab 10/28/20 21:00 10/31/20 08:42 Sennosides/Docusate Sodium Tablet PO 2 tab BID RICA Administration Sodium Chloride 3 ml 10/17/20 08:00 10/31/20 08:41 0.9 % Sodium Chloride Flush 3 Ml Syringe IVFLUSH 3 ml QSHIFT RICA Administration Labs CBC & Chem 7: 10/29/20 05:55 10/29/20 05:55 Microbiology Microbiology Results: Microbiology 10/17/20 Unknown Urine clean catch - Clean Catch Midstream Urine Culture - Final Proteus mirabilis 10/17/20 00:34 Blood - Arterial Line Blood Culture - Final Coag negative Staphylococcus 10/17/20 00:34 Blood - Arterial Line Blood Culture - Final No growth after 5 days. Assessment and Plan (1) Aspiration pneumonitis: Status: Acute (2) Acute on chronic respiratory failure with hypoxia and hypercapnia: Status: Acute (3) Urinary tract infection: Status: Acute Assessment and Plan: hospital d#15 70yo M c DM2, CHF, HTN, CAD s/p TN, chronic constipation emergently intubated upon presentation 10/17 for hypoxic respiratory failure, altered mental status due to aspiration found to have pSBO vs ileus extubated 10/19, reintubated due to recurrent aspiration 10/19 extubated 10/26, stepped down to [facility] 10/27 # acute hypoxic respiratory failure - wean O2 as tolerated # pSBO/ileus/constipation - responded to bowel regimen # aspiration pnemonia # UTI, Proteus - s/p 7d of antibiotics - FAMILY SERVICE CENTER DIRECTOR evaluation: NDD1 solids, thin liquids # CHF exacerbation - resolved- changed to PO furosemide # HTN - continue amlodipine; increase metoprolol # STIVEN - resolved # hypoK - resolved # hyperNa - resolved # DM2, A1c 6.8 - BG controlled without meds # VTE ppx - UFH # dispo - lives alone. concern of STEAM PRESSURE CHAMBER OPERATOR fraud/neglect with 2 open cases per CM. will need to go to [facility] (COVID-19 AC negative). CM working on placement.
--- NOTE | 2020-10-31 15:56 | MHC.CM.PN ---
CM MET WITH PT SEVERAL TIMES THROUGHOUT THE DAY TO DISCUSS DC PLANNING. PT INITIALLY REPORTING HE WOULD LIKE TO GO HOME HE DID NOT HAVE A GOOD EXPERIENCE THE LAST TIME HE WENT TO REHAB. CM REMINDED PT HE DID NOT HAVE A CAREGIVER AT HOME AT THIS TIME. PT REPORTS BEING RELIEVED THAT THE DELIVERY MANAGER THAT WAS THERE IS NO LONGER IN THE PICTURE . PT REPORTS HE IS JUST UNSURE ABOUT STR. ALICIA CONTACTED PTS HCP, JOSE G MARTINEZ ([phone]) WHO REPORTS SHE SPOKE TO THE MD AND FEELS THE PT DEFINITELY NEEDS STR. SHE REPORTS SHE ALSO NEEDS TIME TO WORK WITH PT TO SET UP NEW HOME CARE. JOSE G CALLED THE PT DIRECTLY TO DISCUSS THE IMPORTANCE OF STR. PT NOW AGREEABLE TO [facility] THEY HAVE A TELEVISION IN THE ROOM. CM CONFIRMED WITH [email or web address] AT THAT THERE IS A TV. PT WILL DC TO [email or web address] @ AT 1730 HOURS TODAY VIA BLS. HCP INFORMED VIA T/C AND UPDATED IMM DELIVERED
--- NOTE | 2020-10-31 16:07 | P.DS_ITS ---
DS: Providers Provider Date of Service: 10/31/20 Date of admission: 10/17/20 03:12 Primary care physician: Tim Seaman MD Consults: 10/17/20 05:41 Consult to General Surgery Stat Consulting Provider: Ramy Elmore Reason for consultation: acute abdomen Has provider been notified: Yes 10/18/20 08:40 Consult to General Surgery Routine Consulting Provider: Jameson Hernandez Reason for consultation: SBO Has provider been notified: Yes DS: Diagnosis Discharge Diagnosis (1) Aspiration pneumonitis: Status: Acute (2) Acute on chronic respiratory failure with hypoxia and hypercapnia: Status: Acute (3) Urinary tract infection: Status: Acute (4) Hypertension: Status: Acute (5) Acute on chronic heart failure with preserved ejection fraction (HFpEF): Status: Acute (6) CHF exacerbation: Status: Acute (7) Pulmonary aspiration: Status: Acute (8) Ileus: Status: Acute (9) Partial obstruction of small intestine: Status: Acute (10) Acute renal failure: Status: Acute Problem details: Improving on fluid replacement according to CVP (11) Toxic metabolic encephalopathy: Status: Acute (12) Hypokalemia: Status: Acute (13) Hypernatremia: Status: Acute DS: Medications Discharge Medications Home Medications: Home Medications Medication Instructions Recorded Confirmed atorvastatin 1 tab PO DAILY 10/18/20 10/18/20 finasteride 1 tab PO DAILY 10/18/20 10/18/20 losartan 1 tab PO DAILY 10/18/20 10/18/20 paroxetine HCl 1 tab PO DAILY 10/18/20 10/18/20 tamsulosin 1 cap PO BEDTIME 10/18/20 10/18/20 Previous Rx's Medication Instructions Recorded amlodipine 10 mg PO DAILY #30 tab 10/31/20 famotidine 20 mg PO BEDTIME #30 tab 10/31/20 furosemide 40 mg PO DAILY #30 tab 10/31/20 metoprolol tartrate 100 mg PO BID #60 tab 10/31/20 nystatin 1 appl TOPICAL TID #120 g 10/31/20 polyethylene glycol 3350 [Miralax] 17 g PO DAILY #30 ea 10/31/20 sennosides-docusate sodium [Senna 2 tab PO BID #120 tab 10/31/20 Plus] DS: Summary Hospital Course Hospital Course: From admission history and physical by spaghetti press helper [employer], 10/17/20: Patient is a 70-year-old gentleman with a past medical history of diabetes, CHF, HTN, prior NE and constipation who had an admission at [facility] in August 2020 for constipation, STIVEN and hypoxia. Patient was BIBA after being found at home with it O2 saturation of 70%. Patient is nonambulatory and has a SERVICES COORDINATOR. His SERVICES COORDINATOR states the patient started to not feel well yesterday afternoon, he stated he is constipated so his SERVICES COORDINATOR gave him a Fleet enema. He did not eat lunch and then around 06:00 o'clock in the evening he vomited multiple times, coffee colored emesis. After the vomiting episode, the patient had a large bowel movement, not bloody or black. The SERVICES COORDINATOR states the patient became obtunded at that point so she called EMS. Upon arrival to the ED, the patient was , had a distended abdomen and was shallow breathing on a non-rebreather with O2 saturation of 86%. First vital signs are recorded by the ED were 96.6F, HR68, RR16, BP 101/35 SpO2 91% on vent. Patient was emergently intubated. When OG tube was placed, 2500 cc of coffee colored fluid was aspirated. Patient was given Zosyn, Vanco and IV fluids in the ED. Labs were significant for white count 13.9, VBG done after intubation was as follows 7.38/58/105/34/97/7.9, K 5.5, Cl 93, serum bicarb 34, BUN 28, Cr 2.14, Lactic acid 2.4, Heme-negative stool. Records indicate he was + UA 10/15/20. Patient will be transferred to the ICU. Summary of ICU course by spaghetti press helper Giles Burr MD, 10/27/20: Mr. Lozada was admitted to the ICU on October 17 after being intubated in the ED for obtundation and hypoxemic resp failure 2? aspiration. 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 Was admitted [facility] in August, for constipation, STIVEN, and hypoxemia. Lives by himself with 24 hr SERVICES COORDINATOR. He has no family members involved. Reportedly there are problems with his SERVICES COORDINATOR or whoever it is who?s managing his affairs, possibly involving fraud. On October 17, he was reportedly at home when he vomited mult times coffee colored vomitus, lost control of his bowels (not bloody or black), and became obtunded. EMS was called by the SERVICES COORDINATOR. At the scene, the patient was obtunded with shallow breathing, Sat 70% on room air, w distended abdomen. Sat increased to 86% on NRBFM. The patient was BIBA to the ED. He was obtunded and hypoxemic on arrival. The trachea was intubated, an OGT was placed, and 2500 cc of coffee colored fluid was returned immediately. CT abdomen/pelvis was significant for partial small-bowel obstruction versus ileus. Chest CT showed bibasilar posterior infiltrates c/w aspiration. He was evaluated by General surgery and conservative management was recommended. The pt was given Zosyn and vanco and IV fluids, and admitted to ICU. In ICU, bedside echo showed good biventricular systolic function with no primary valve or pericardial disease. He was initially very hypoxemic. The patient was continued on Zosyn. He was extubated on October 19, but required re-intubation the same day secondary to recurrent aspiration. On October 20, proteus grew out of his urine, he was switched to ceftriaxone and given a total of 7 days of abx. His ileus/bowel obstruction was treated with Reglan and Lactulose, with little efffect. On October 25, we gave him Mag Citrate x 2 and he definitely started stooling. Initially hard pellets, then later softer, more pasty, copious light brown stool, which has continued to today. Nonodorous. We were able to get him extubated yesterday morning without incident and he did well overnite. But his mental status hasn?t yet returned to normal. The patient was stepped down to the [facility] on 10/28/19. Oxygen was gradually brought down to 3 liters via nasal cannula. He was seen by FAST FOOD SHIFT SUPERVISOR and was cleared for NDD1 solids and thin liquids. CHF exacerbation resolved and he was transitioned from IV to PO furosemide. Acute kidney injury resolved. For hypertension, he was placed on amlodipine, metoprolol, and losartan. The patient was discharged to short-term rehabilitation to continue his recovery and to undergo physical and speech therapy. Due to concern of fraud and neglect on the part of the patient's assigned SERVICES COORDINATOR, there are 2 open elder abuse and neglect cases and Case Management updated Elder Protective Services. The patient's healthcare proxy was also updated. He was discharged to [facility] [place]. Time Spent with Patient Time attestation: Total time spent providing and/or coordinating discharge services: 45 Discharge coordination time: Greater than 30 minutes Physical Exam Vital Signs: Vital Signs: Last Vital Signs Temp 97.6 F 10/31/20 15:31 Pulse 64 10/31/20 15:31 Resp 18 10/31/20 15:31 BP 178/82 H 10/31/20 15:38 Pulse Ox 96 10/31/20 15:31 Body Mass Index 36.1 Gen: in no acute distress HEENT: sclera anicteric, moist mucus membranes Neck: supple Lungs: clear bilaterally Heart: regular rate and rhythm, no murmurs Abd: soft, obese, non-tender, somewhat distended Ext: no edema Skin: warm/well-perfused Neuro: alert, non-focal but disoriented Psych: calm DS: Data Data Completed and Pending Completed studies during hospitalization [Text1]: Laboratory Results WBC 11.1 X10*3/uL (4.8-10.8) H 10/29/20 05:55 RBC 4.75 X10*6/uL (4.60-5.80) 10/29/20 05:55 Hgb 13.0 g/dl (14.0-18.0) L 10/29/20 05:55 Hct 40.0 % (42-52) L 10/29/20 05:55 MCV 84.2 fL (80-98) 10/29/20 05:55 MCH 27.4 pg (27.0-33.0) 10/29/20 05:55 MCHC 32.5 g/dl (31.0-36.0) 10/29/20 05:55 RDW 14.5 % (11.0-16.0) 10/29/20 05:55 Plt Count 325 X10*3/uL (160-400) 10/29/20 05:55 MPV 10.0 fL (9.4-12.4) 10/29/20 05:55 Immature Gran % (Auto) 1.9 % (0.0-0.4) H 10/29/20 05:55 Neut % (Auto) 69.1 % (45-73) 10/29/20 05:55 Lymph % (Auto) 16.9 % (20-40) L 10/29/20 05:55 [place] % (Auto) 9.2 % (2-11) 10/29/20 05:55 Eos % (Auto) 2.3 % (0-4) 10/29/20 05:55 Baso % (Auto) 0.6 % (0-2) 10/29/20 05:55 Lymph # (Auto) 1.9 X10*3/uL (1.2-4.9) 10/29/20 05:55 [place] # (Auto) 1.0 X10*3/uL (0.1-1.2) 10/29/20 05:55 Eos # (Auto) 0.3 X10*3/uL (0.0-0.4) 10/29/20 05:55 Baso # (Auto) 0.1 X10*3/uL (0.0-0.2) 10/29/20 05:55 Abs Immat Gran (auto) 0.21 X10*3/uL (0.00-0.03) H 10/29/20 05:55 Absolute Neuts (auto) 7.7 X10*3/uL (2.0-8.3) 10/29/20 05:55 Absolute Nucleated RBC 0.000 X10*3/uL (0.0-0.012) 10/29/20 05:55 Nucleated RBC % (auto) 0.0 /100WBC (0.0-0.2) 10/29/20 05:55 Neutrophils % (Manual) 59 % (45-73) 10/26/20 05:24 Band Neutrophils % 3 % (3-5) 10/26/20 05:24 Lymphocytes % (Manual) 21 % (20-40) 10/26/20 05:24 Monocytes % (Manual) 3 % (2-11) 10/26/20 05:24 Eosinophils % (Manual) 7 % (0-4) H 10/26/20 05:24 Basophils % (Manual) 1 % (0-1) 10/23/20 05:04 Metamyelocytes % 6 % 10/26/20 05:24 Myelocytes % 1 % 10/26/20 05:24 Abs Neuts (Manual) 5.1 X10*3/uL (2.2-7.9) 10/26/20 05:24 Lymphocytes # (Manual) 1.7 X10*3/uL (0.6-4.8) 10/26/20 05:24 Monocytes # (Manual) 0.2 X10*3/uL (0.0-1.2) 10/26/20 05:24 Eosinophils # (Manual) 0.6 X10*3/UL (0.0-0.8) 10/26/20 05:24 Basophils # (Manual) 0.1 X10*3/uL (0.0-0.3) 10/23/20 05:04 Metamyelocytes # 0.5 X10*3/uL 10/26/20 05:24 Myelocytes # 0.1 X10*/uL 10/26/20 05:24 Platelet Estimate NORMAL (NORMAL) 10/26/20 05:24 Large Platelets PRESENT 10/26/20 05:24 Plt Morphology Comment NOTED 10/26/20 05:24 RBC Morphology NORMAL 10/26/20 05:24 Polychromasia 1+ 10/23/20 05:04 Tear Drop Cells 1+ 10/23/20 05:04 PT 13.1 SEC (10.8-13.0) H 10/27/20 07:44 INR 1.1 (0.9-1.1) 10/27/20 07:44 APTT 27.3 SEC (24.1-38.0) 10/18/20 05:35 VBG pH 7.41 (7.32-7.43) 10/27/20 07:54 VBG pCO2 32 mmHg 10/27/20 07:54 VBG pO2 50 mmHg 10/27/20 07:54 VBG HCO3 20 mmol/L (22-26) L 10/27/20 07:54 VBG O2 Saturation 83.0 % 10/27/20 07:54 VBG Base Excess -3.0 mmol/L 10/27/20 07:54 Sodium 143 mmol/L (135-145) 10/29/20 05:55 Potassium 3.8 mmol/L (3.3-5.1) 10/29/20 05:55 Chloride 107 mmol/L (96-108) 10/29/20 05:55 Carbon Dioxide 26 mmol/L (22-29) 10/29/20 05:55 Anion Gap 14 (12-20) 10/29/20 05:55 BUN 10 mg/dL (9-16) 10/29/20 05:55 Creatinine 0.76 mg/dL (0.5-1.4) 10/29/20 05:55 Estim Creat Clear Calc 100.2 10/29/20 05:55 Estimated GFR > 60 10/29/20 05:55 POC Glucose 222 mg/dL (60-115) H 10/16/20 23:48 Random Glucose 118 mg/dL (60-115) H 10/29/20 05:55 Estimat Average Glucose 148 mg/dL 10/29/20 11:46 Hemoglobin A1c % 6.8 % 10/29/20 11:46 Lactic Acid 2.0 mmol/L (0.5-2.0) 10/17/20 20:37 Lactic Acid Fup @ 2Hr 2.8 mmol/L (0.5-2.0) H* 10/17/20 13:26 Lactic Acid Fup @ 4Hr 3.6 mmol/L (0.5-2.0) H* 10/17/20 15:51 Calcium 9.2 mg/dL (8.4-10.2) 10/29/20 05:55 Phosphorus 3.0 mg/dL (2.7-4.5) 10/25/20 05:17 Magnesium 2.1 mg/dL (1.6-2.6) 10/28/20 08:16 Total Bilirubin 0.7 mg/dL (0.0-1.0) 10/27/20 07:44 Direct Bilirubin 0.4 mg/dL (0.0-0.5) 10/18/20 05:35 AST 31 U/L (5-37) 10/27/20 07:44 ALT 41 U/L (0-40) H 10/27/20 07:44 Alkaline Phosphatase 77 U/L (39-117) 10/27/20 07:44 Ammonia 24 umol/L (13-55) 10/17/20 00:35 Troponin I High Sens 5.3 ng/L (<3.5-35.0) 10/17/20 00:34 B-Natriuretic Peptide 166 pg/mL (<100) H 10/29/20 11:46 Total Protein 6.1 g/dL (6.5-8.0) L 10/27/20 07:44 Albumin 3.6 g/dL (3.5-5.0) 10/27/20 07:44 Lipase 15 U/L (8-78) 10/17/20 00:35 Procalcitonin 0.22 ng/mL 10/17/20 00:34 Urine Color YELLOW 10/17/20 04:39 Urine Appearance HAZY 10/17/20 04:39 Urine pH 6.0 (5.0-8.0) 10/17/20 04:39 Ur Specific [place] 1.025 (1.005-1.025) 10/17/20 04:39 Urine Protein TRACE MG/DL (NEG-TRACE) 10/17/20 04:39 Urine Glucose (UA) NEG MG/DL (NEG) 10/17/20 04:39 Urine Ketones NEG MG/DL (NEG) 10/17/20 04:39 Urine Blood TRACE (NEG) 10/17/20 04:39 Urine Nitrite NEG (NEG) 10/17/20 04:39 Ur Leukocyte Esterase 3+ (NEG) H 10/17/20 04:39 Urine RBC 5-9 /HPF (0) H 10/17/20 04:39 Urine WBC 50-75 /HPF (0-4) H 10/17/20 04:39 Ur Squamous Epith Cells 1+ /LPF 10/17/20 04:39 Urine Bacteria 2+ /LPF 10/17/20 04:39 Urine Mucus 1+ /LPF 10/17/20 04:39 Stool Occult Blood NEG (NEG) 10/17/20 00:40 Urine Opiates Screen POSITIVE (Not Detect) H 10/17/20 04:39 Ur Barbiturates Screen Not Detected (Not Detect) 10/17/20 04:39 Ur Phencyclidine Scrn Not Detected (Not Detect) 10/17/20 04:39 Ur Amphetamines Screen Not Detected (Not Detect) 10/17/20 04:39 U Benzodiazepines Scrn POSITIVE (Not Detect) H 10/17/20 04:39 Urine Cocaine Screen Not Detected (Not Detect) 10/17/20 04:39 U Marijuana (THC) Screen Not Detected (Not Detect) 10/17/20 04:39 Ethyl Alcohol < 10 mg/dL 10/17/20 00:34 [address] See Note 10/17/20 05:45 Adenovirus (Rapid PCR) Not Detected (Not Detect.) 10/17/20 05:45 B.pert (TEM-PCR) Not Detected (Not Detect.) 10/17/20 05:45 B.parapertussis DNA PCR Not Detected (Not Detect.) 10/17/20 05:45 C. pneumoniae DNA (PCR) Not Detected (Not Detect.) 10/17/20 05:45 Coronavirus OC43 (PCR) Not Detected (Not Detect.) 10/17/20 05:45 Coronavirus HKU1 (PCR) Not Detected (Not Detect.) 10/17/20 05:45 Coronavirus 229E (PCR) Not Detected (Not Detect.) 10/17/20 05:45 COVID-19 (AC) Negative (Negative) 10/30/20 10:30 COVID-19 Clin Com See Note 10/30/20 10:30 Coronavirus NL63 (PCR) Not Detected (Not Detect.) 10/17/20 05:45 Human Metapneumovir PCR Not Detected (Not Detect.) 10/17/20 05:45 Influenza A (RT-PCR) Not Detected (Not Detect.) 10/17/20 05:45 Influenza B (RT-PCR) Not Detected (Not Detect.) 10/17/20 05:45 M. pneumoniae (PCR) Not Detected (Not Detect.) 10/17/20 05:45 Parainfluenza 1 (PCR) Not Detected (Not Detect.) 10/17/20 05:45 Parainfluenza 2 (PCR) Not Detected (Not Detect.) 10/17/20 05:45 Parainfluenza 3 (PCR) Not Detected (Not Detect.) 10/17/20 05:45 Parainfluenza 4 (PCR) Not Detected (Not Detect.) 10/17/20 05:45 RSV (PCR) Not Detected (Not Detect.) 10/17/20 05:45 Entero/Rhino (PCR) Not Detected (Not Detect.) 10/17/20 05:45 SARS-CoV-2 RNA (RT-PCR) Not Detected (Not Detect.) 10/17/20 05:45 Blood Type A Negative 10/17/20 00:34 Antibody Screen NEGATIVE 10/17/20 00:34 Impressions Abdomen/Pelvis CT 10/17/20 00:01 IMPRESSION: 1. Multifocal regions of pulmonary consolidation bilaterally suspicious for pneumonia. Dense regions of opacification towards the bilateral lung bases are favored to at least partially represent atelectasis. 2. Endotracheal tube tip approximately 0.5 cm above the alli. Retraction recommended. 3. Mildly dilated gas-filled small bowel loops in the upper to mid abdomen with collapsed small bowel loops distally. No discrete transition point is seen, and appearance could reflect sequelae of ileus or a partial/developing small bowel obstruction. Chest CT 10/17/20 01:19 IMPRESSION: 1. Multifocal regions of pulmonary consolidation bilaterally suspicious for pneumonia. Dense regions of opacification towards the bilateral lung bases are favored to at least partially represent atelectasis. 2. Endotracheal tube tip approximately 0.5 cm above the alli. Retraction recommended. 3. Mildly dilated gas-filled small bowel loops in the upper to mid abdomen with collapsed small bowel loops distally. No discrete transition point is seen, and appearance could reflect sequelae of ileus or a partial/developing small bowel obstruction. Abdomen X-Ray 10/24/20 12:10 IMPRESSION: No evidence of obstruction or ileus. Moderate constipation without colonic dilatation. Chest X-Ray 10/29/20 10:17 IMPRESSION: Slightly enlarged cardiac silhouette. Low lung volumes. Improved bilateral airspace disease from previous exams. No evidence of CHF. Discharge Plan Discharge Anticipated Discharge Date/Time: 10/31/20 15:59 Patient Disposition: er SNF Referrals: Tim Seaman MD [Physician] - Discharge Medications: New furosemide 40 mg Tablet 40 mg PO DAILY Qty: 30 RF: 0 metoprolol tartrate 100 mg Tablet 100 mg PO BID Qty: 60 RF: 0 sennosides-docusate sodium [Senna Plus] 8.6-50 mg Tablet 2 tab PO BID Qty: 120 RF: 0 amlodipine 5 mg Tablet 10 mg PO DAILY Qty: 30 RF: 0 famotidine 20 mg Tablet 20 mg PO BEDTIME Qty: 30 RF: 0 nystatin 100,000 unit/gram Powder 1 appl topical TID Qty: 120 RF: 0 polyethylene glycol 3350 [Miralax] 17 gram powder in packet 17 g PO DAILY Qty: 30 RF: 0 Continued atorvastatin 40 mg tablet 1 tab PO DAILY RF: 0 tamsulosin 0.4 mg capsule 1 cap PO BEDTIME RF: 0 paroxetine HCl 20 mg tablet 1 tab PO DAILY RF: 0 losartan 100 mg tablet 1 tab PO DAILY RF: 0 finasteride 5 mg tablet 1 tab PO DAILY RF: 0 Discontinued sennosides [senna] 8.6 mg Tablet 8.6 mg PO BID RF: 0 nitrofurantoin macrocrystal 50 mg capsule 1 cap PO DAILY RF: 0 torsemide 20 mg tablet 1 tab PO DAILY RF: 0 amitriptyline 150 mg tablet 1 tab PO BEDTIME RF: 0 nifedipine 90 mg tablet extended release 1 tab PO DAILY RF: 0 metoprolol tartrate 100 mg tablet 1 tab PO BID RF: 0 tramadol 50 mg tablet 1 tab PO TID PRN (Reason: PAIN) RF: 0 gabapentin 300 mg capsule 1 cap PO TID RF: 0 diazepam 5 mg tablet 1 tab PO Q6H PRN (Reason: PRN) RF: 0 oxycodone 5 mg tablet 1 tab PO Q4H PRN (Reason: Pain) RF: 0 lactulose 10 gram/15 mL solution 30 ml PO BID RF: 0 Discharge Orders: Discharge Order (Routine); Ordered 10/31/20 Ordered By: Agustín Crowley Diet: other Activity on Discharge: As tolerated Stand Alone Forms: Patient Portal Discharge page Activity Restrictions/Additional Instructions: NDD1 (pureed) solids with thin liquids, FAST FOOD SHIFT SUPERVISOR re-evaluation please Care Plan Goals: recovery from respiratory failure, weaning off oxygen prevention of recurrent aspiration bowel health- prevention of constipation/ileus Health Concerns: respiratory failure from aspiration pneumonia urinary tract infection ileus/partial small bowel obstruction Plan of Treatment: rehabilitation- physical and speech therapy wean oxygen gradually Patient Instructions: Pneumonia (DC)
--- NOTE | 2020-11-01 16:04 | MHC.CM.PN ---
CM has been trying to contact pts HCP to obtain her current mailing address so that a copy of the IMM can be sent. Pts phone number ([phone]) has been busy. CM will try again prior to the end of the workday.
== END 2020-10-31 19:31 | disposition skilled nursing facility (03) | DRG 870 ==
LOC: HO.ED 10-17 01:17 → HO.ICU 10-17 03:23 → HO.IMC 10-27 17:28
PROVIDERS: Anesthesiology; Emergency Medicine; Internal Medicine Pulmonary Disease; Physician Assistant; Physician Assistant Medical; Admitting Provider Internal Medicine Cardiovascular Disease; Emergency Provider Internal Medicine; PCP Internal Medicine; Visit Provider Family Medicine
DX: A41.9 Sepsis, unspecified organism (principal); R65.21 Severe sepsis with septic shock; J96.01 Acute respiratory failure with hypoxia; J69.0 Pneumonitis due to inhalation of food and vomit; I50.33 Acute on chronic diastolic (congestive) heart failure; E87.2 Acidosis; K56.7 Ileus, unspecified; E44.1 Mild protein-calorie malnutrition; N39.0 Urinary tract infection, site not specified; E87.0 Hyperosmolality and hypernatremia; N17.9 Acute kidney failure, unspecified; E87.6 Hypokalemia; I48.91 Unspecified atrial fibrillation; B96.4 Proteus (mirabilis) (morganii) as the cause of diseases classified elsewhere; K59.09 Other constipation; I25.10 Atherosclerotic heart disease of native coronary artery without angina pectoris; Z68.36 Body mass index [BMI] 36.0-36.9, adult; E11.9 Type 2 diabetes mellitus without complications; I10 Essential (primary) hypertension; I25.2 Old myocardial infarction; Z20.822 Contact with and (suspected) exposure to COVID-19; Z79.899 Other long term (current) drug therapy
CPT/HCPCS: 36415; 71045; 71250; 74018; 74176; 80048; 80053; 80076; 80307; 80320; 81001; 81003; 82040; 82140; 82272; 82947; 83036; 83605; 83690; 83735; 83880; 84100; 84145; 84484; 85007; 85025; 85027; 85610; 85730; 86850; 86900; 87040; 87086; 87088; 87205; 87633; 87635; 92610; 93005; 94002; 94003; 96361; 96365; 96375; 97110; 97163; 99222; 99284; 99291; J0696; J1940; J2543; J2765; J3475

== ENCOUNTER 2022-02-17 17:20 | Inpatient (IN) | payer MEDICARE, OTHER, SELFPAY ==
--- NOTE | ~2022-02-17 | XR_ITS ---
EXAMINATION: XR CHEST CLINICAL INFORMATION: Shortness of breath COMPARISON: Chest radiograph 10/29/2020 TECHNIQUE: Frontal view of the chest was obtained. FINDINGS: Interval removal of the right internal jugular central venous catheter. Possible small left pleural effusion similar to prior. No pneumothorax. Bibasilar medial airspace opacities possibly reflective of atelectasis although aspiration or infection could appear similar. Cardiac silhouette is borderline enlarged unchanged from prior. XR/XR chest 1V IMPRESSION: Bibasilar medial airspace opacities possibly reflective of atelectasis although aspiration or infection could appear similar. Possible small left pleural effusion similar to prior. Cardiac silhouette is borderline enlarged unchanged from prior.
--- NOTE | 2022-02-17 17:35 | ECG_ITS ---
Test Reason : SOB Blood Pressure : / mmHG Vent. Rate : 061 BPM Atrial Rate : 061 BPM P-R Int : 188 ms QRS Dur : 106 ms QT Int : 446 ms P-R-T Axes : 067 -01 042 degrees QTc Int : 448 ms Normal sinus rhythm Incomplete right bundle branch block Inferior infarct (cited on or before 17-MAY-2018) Abnormal ECG When compared with ECG of 17-OCT-2020 01:16, No significant change was found Referred By: Mirna Ray Electronically Signed By:Mike Lamas
--- NOTE | 2022-02-17 17:36 | ED_ITS ---
HPI - SOB/Dyspnea General Chief Complaint: Upper Respiratory Symptoms Stated Complaint: sob Time Seen by Provider: 02/17/22 17:35 Source: patient, EMS and old records reviewed Mode of arrival: EMS Limitations: no limitations History of Present Illness HPI Narrative: 71-year-old male with history of heart failure with preserved EF, HTN, DM2, hx [place], constipation, hx CVA with residual right LE weakness who presents to the ER from short term rehab with progressing SOB for the last 5-6 days. He states this week his breathing has been more short and he has been coughing more and more. He does not bring up phlegm. He denies any fever or chills. He reports today he was gasping for breath while sitting down. He was struggling to breathe. EMS reports they were called for low O2 sat, noted to be 88% on room air. He was placed on 4L NC and brought to the ER for further evaluation. MD elicited complaint: shortness of breath and cough Pertinent past history: congestive heart failure Onset (ago): day(s) (6) Context: recent illness Timing: constant and progressively worsening Severity: moderate Exacerbating factors: coughing Relieving factors: oxygen and rest Known history of: congestive heart failure Associated symptoms: cough, sense of impending doom and chest congestion Treatment prior to arrival: oxygen Related Data Home oxygen amount: none Home Medications Medication Instructions Recorded Confirmed atorvastatin 40 mg tablet 1 tab PO DAILY 10/18/20 02/17/22 finasteride 5 mg tablet 1 tab PO DAILY 10/18/20 02/17/22 losartan 100 mg tablet 1 tab PO DAILY 10/18/20 02/17/22 tamsulosin 0.4 mg capsule 1 cap PO BEDTIME 10/18/20 02/17/22 amitriptyline 50 mg tablet 50 mg PO BEDTIME 02/17/22 02/17/22 cholecalciferol (vitamin D3) 50 50 mcg PO DAILY 02/17/22 02/17/22 mcg (2,000 unit) tablet gabapentin 100 mg capsule 200 mg PO BID 02/17/22 02/17/22 metoprolol succinate 100 mg 100 mg PO BID 02/17/22 02/17/22 tablet,extended release 24 hr paroxetine HCl 10 mg tablet 10 mg PO DAILY 02/17/22 02/17/22 potassium chloride 10 mEq 10 meq PO DAILY 02/17/22 02/17/22 tablet,extended release(part/cryst) sennosides 8.6 mg-docusate sodium 2 tab PO BEDTIME 02/17/22 02/17/22 50 mg tablet (Senna Plus) Previous Rx's Medication Instructions Recorded amlodipine 5 mg tablet 10 mg PO DAILY #30 tabs 10/31/20 famotidine 20 mg tablet 20 mg PO BEDTIME #30 tabs 10/31/20 furosemide 40 mg tablet 40 mg PO DAILY #30 tabs 10/31/20 polyethylene glycol 3350 17 gram 17 g PO DAILY #30 ea 10/31/20 oral powder packet (Miralax) Allergies Allergy/AdvReac Type Severity Reaction Status Date / Time No Known Allergies Allergy Verified 07/09/20 19:36 [No Known Allergies*] Review of Systems Review of Systems: Constitutional: No Fever, No Chills ENT/Mouth: No sore throat, No Rhinorrhea, No Swallowing Difficulty Eyes: No Eye Pain, No Swelling, No Redness Cardiovascular: No Chest Pain, +SOB, No Orthopnea, No Edema Respiratory: + Cough, No Sputum, No Wheezing, + dyspnea Gastrointestinal: No Nausea, No Vomiting, No Diarrhea, No abdominal Pain, No Hematochezia, No Melena Genitourinary: No Dysuria, No Urinary Frequency, No Hematuria Musculoskeletal: No joint pain, No Myalgias Skin: No Skin Lesions, No rash Neuro: + Weakness, No Numbness, No Dizziness, No Headache Psych: No Anxiety/Panic, No Depression Heme/Lymph: No Bruising, No Lymphadenopathy Endocrine: No Polyuria, No Polydipsia [facility] Past Medical History Medical History (Updated 02/17/22 @ 20:19 by PHOENIX Berger) Abdomen enlarged Acute on chronic heart failure with preserved ejection fraction (HFpEF) Acute on chronic respiratory failure with hypoxia and hypercapnia Acute renal failure Acute respiratory failure with hypoxia Acute upper gastrointestinal bleeding Afib Altered mental status Aspiration pneumonitis Atypical pneumonia Borderline diabetic CHF exacerbation Congestive heart failure Hypertension Hyperthyroidism Hypoxia Ileus Multifocal pneumonia Myocardial infarct Partial obstruction of small intestine Pulmonary aspiration Sepsis associated hypotension Toxic metabolic encephalopathy Urinary catheter in place Urinary tract infection Social History Social History Household Members: Unknown / Unable to assess Housing: Unknown / Unable to assess Unable to assess alcohol history related to: Unknown Alcohol intake: unknown Smoked in Last 30 Days: No Use of substances other than those prescribed or required for medical reasons: No Substance Use Type: Unknown Advance Directives: Yes Advance Directives on File: Yes Advance Directives Date on File: 10/18/20 service: No Current occupational status: retired Physical Exam Vital Signs: Vital Signs: Last Vital Signs Temp 98.0 F 02/17/22 19:19 Pulse 63 02/17/22 19:19 Resp 18 02/17/22 19:19 BP 115/61 02/17/22 19:19 Pulse Ox 91 L 02/17/22 19:19 O2 Del Method 02/17/22 19:19 Oxygen Flow Rate 4 02/17/22 17:37 BMI result Body Mass Index 28.8 Appearance: Alert. Oriented X3. No acute distress. Eyes: Pupils equal, round and reactive to light. ENT: Pharynx normal. Neck: Normal inspection. Neck supple. CVS: Normal heart rate and rhythm. Pulses normal. Respiratory: No respiratory distress. Breath sounds very coarse throughout with scattered rhonchi, L>R. Abdomen: Soft, obese and nontender. +BS x4 Skin: Skin warm and dry. Normal skin color. Normal skin turgor. No rashes. Extremities: No lower extremity edema. Neuro: Oriented X 3. RLE with 3/5 weakness. Slight delay in speech but no slurring. Cognition normal. Equal and symmetrical UE strength. No sensory deficit. Course Course Course Narrative: 71-year-old male presents to the ER for hypoxia, in the setting of worsening cough and shortness of breath for the last 1 week. He requires 4 L nasal cannula to maintain saturations of 91-92%. He denies any history of COPD or lung problems in the past. Of note he was intubated in the past (10/2020) for obtundation and airway protection with aspiration pneumonia. Will get CXR, EKG, labs. He will require admission. Reevaluation(s) Reevaluation #1: Chest x-ray with bibasilar medial airspace opacities possibly reflective of atelectasis although aspiration or infection could appear similar. He has a small left pleural effusion, similar to prior. Labs showed no leukocytosis. BNP is normal. He has an STIVEN, will give gentle hydration. Will also cover for possible aspiration pneumonia given his history. Will give a dose of Unasyn. He still requires 4 L nasal cannula to maintain oxygen saturations above 90%. Will plan for admission to the hospital for further management. MDM - SOB/Dyspnea Medical Records Attestation: I reviewed the patient's medical records. Lab Data Attestation: I reviewed the patient's lab results. Result diagrams: 02/17/22 17:51 02/17/22 17:51 Labs: Lab Results 02/17/22 02/17/22 02/17/22 Range/Units 17:51 17:51 17:51 WBC 5.7 (4.8-10.8) X10*3/uL RBC 4.77 (4.60-5.80) X10*6/uL Hgb 13.1 L (14.0-18.0) g/dl Hct 39.8 L (42.0-52.0) % MCV 83.4 (80.0-98.0) fL MCH 27.5 (27.0-33.0) pg MCHC 32.9 (31.0-36.0) g/dl RDW 13.4 (11.0-16.0) % Plt Count 245 (160-400) X10*3/uL MPV 9.5 (9.4-12.4) fL Immature Gran % (Auto) 0.5 H (0.0-0.4) % Neut % (Auto) 45.0 (45-73) % Lymph % (Auto) 32.9 (20-40) % [place] % (Auto) 15.7 H (2-11) % Eos % (Auto) 5.5 H (0-4) % Baso % (Auto) 0.4 (0-2) % Lymph # (Auto) 1.9 (1.2-4.9) X10*3/uL [place] # (Auto) 0.9 (0.1-1.2) X10*3/uL Eos # (Auto) 0.3 (0.0-0.4) X10*3/uL Baso # (Auto) 0.0 (0.0-0.2) X10*3/uL Abs Immat Gran (auto) 0.03 (0.00-0.03) X10*3/uL Absolute Neuts (auto) 2.6 (2.0-8.3) x10*3/uL Absolute Nucleated RBC 0.000 (0.0-0.012) X10*3/uL Nucleated RBC % (auto) 0.0 (0.0-0.2) /100WBC VBG pH (7.32-7.43) VBG pCO2 mmHg VBG pO2 mmHg VBG HCO3 (22-26) mmol/L VBG O2 Saturation % VBG Base Excess mmol/L Sodium 137 (135-145) mmol/L Potassium 4.5 (3.3-5.1) mmol/L Chloride 104 (96-108) mmol/L Carbon Dioxide 26 (22-29) mmol/L Anion Gap 12 (12-20) BUN 31 H (9-16) mg/dL Creatinine 1.53 H (0.5-1.4) mg/dL Estim Creat Clear Calc 48.0 Estimated GFR 45 Random Glucose 150 H (60-115) mg/dL Lactic Acid (0.5-2.0) mmol/L Calcium 8.5 D (8.4-10.2) mg/dL Magnesium 2.2 (1.6-2.6) mg/dL Total Bilirubin 0.8 (0.0-1.0) mg/dL Direct Bilirubin 0.3 (0.0-0.5) mg/dL AST 13 D (5-37) U/L ALT 10 (0-40) U/L Alkaline Phosphatase 122 H D (39-117) U/L Troponin I High Sens 6.8 (<3.5-35.0) ng/L B-Natriuretic Peptide 39 (<100) pg/mL Total Protein 6.7 (6.5-8.0) g/dL Albumin 3.9 (3.5-5.0) g/dL Procalcitonin ng/mL COVID-19 (AC) (Negative) COVID-19 Clin Com 02/17/22 02/17/22 02/17/22 Range/Units 17:51 17:51 17:56 WBC (4.8-10.8) X10*3/uL RBC (4.60-5.80) X10*6/uL Hgb (14.0-18.0) g/dl Hct (42.0-52.0) % MCV (80.0-98.0) fL MCH (27.0-33.0) pg MCHC (31.0-36.0) g/dl RDW (11.0-16.0) % Plt Count (160-400) X10*3/uL MPV (9.4-12.4) fL Immature Gran % (Auto) (0.0-0.4) % Neut % (Auto) (45-73) % Lymph % (Auto) (20-40) % [place] % (Auto) (2-11) % Eos % (Auto) (0-4) % Baso % (Auto) (0-2) % Lymph # (Auto) (1.2-4.9) X10*3/uL [place] # (Auto) (0.1-1.2) X10*3/uL Eos # (Auto) (0.0-0.4) X10*3/uL Baso # (Auto) (0.0-0.2) X10*3/uL Abs Immat Gran (auto) (0.00-0.03) X10*3/uL Absolute Neuts (auto) (2.0-8.3) x10*3/uL Absolute Nucleated RBC (0.0-0.012) X10*3/uL Nucleated RBC % (auto) (0.0-0.2) /100WBC VBG pH 7.38 (7.32-7.43) VBG pCO2 34 mmHg VBG pO2 65 mmHg VBG HCO3 20 L (22-26) mmol/L VBG O2 Saturation 88.0 % VBG Base Excess -3.8 mmol/L Sodium (135-145) mmol/L Potassium (3.3-5.1) mmol/L Chloride (96-108) mmol/L Carbon Dioxide (22-29) mmol/L Anion Gap (12-20) BUN (9-16) mg/dL Creatinine (0.5-1.4) mg/dL Estim Creat Clear Calc Estimated GFR Random Glucose (60-115) mg/dL Lactic Acid (0.5-2.0) mmol/L Calcium (8.4-10.2) mg/dL Magnesium (1.6-2.6) mg/dL Total Bilirubin (0.0-1.0) mg/dL Direct Bilirubin (0.0-0.5) mg/dL AST (5-37) U/L ALT (0-40) U/L Alkaline Phosphatase (39-117) U/L Troponin I High Sens (<3.5-35.0) ng/L B-Natriuretic Peptide (<100) pg/mL Total Protein (6.5-8.0) g/dL Albumin (3.5-5.0) g/dL Procalcitonin 0.19 ng/mL COVID-19 (AC) Negative (Negative) COVID-19 Clin Com See Note 02/17/22 Range/Units 18:26 WBC (4.8-10.8) X10*3/uL RBC (4.60-5.80) X10*6/uL Hgb (14.0-18.0) g/dl Hct (42.0-52.0) % MCV (80.0-98.0) fL MCH (27.0-33.0) pg MCHC (31.0-36.0) g/dl RDW (11.0-16.0) % Plt Count (160-400) X10*3/uL MPV (9.4-12.4) fL Immature Gran % (Auto) (0.0-0.4) % Neut % (Auto) (45-73) % Lymph % (Auto) (20-40) % [place] % (Auto) (2-11) % Eos % (Auto) (0-4) % Baso % (Auto) (0-2) % Lymph # (Auto) (1.2-4.9) X10*3/uL [place] # (Auto) (0.1-1.2) X10*3/uL Eos # (Auto) (0.0-0.4) X10*3/uL Baso # (Auto) (0.0-0.2) X10*3/uL Abs Immat Gran (auto) (0.00-0.03) X10*3/uL Absolute Neuts (auto) (2.0-8.3) x10*3/uL Absolute Nucleated RBC (0.0-0.012) X10*3/uL Nucleated RBC % (auto) (0.0-0.2) /100WBC VBG pH (7.32-7.43) VBG pCO2 mmHg VBG pO2 mmHg VBG HCO3 (22-26) mmol/L VBG O2 Saturation % VBG Base Excess mmol/L Sodium (135-145) mmol/L Potassium (3.3-5.1) mmol/L Chloride (96-108) mmol/L Carbon Dioxide (22-29) mmol/L Anion Gap (12-20) BUN (9-16) mg/dL Creatinine (0.5-1.4) mg/dL Estim Creat Clear Calc Estimated GFR Random Glucose (60-115) mg/dL Lactic Acid 1.0 (0.5-2.0) mmol/L Calcium (8.4-10.2) mg/dL Magnesium (1.6-2.6) mg/dL Total Bilirubin (0.0-1.0) mg/dL Direct Bilirubin (0.0-0.5) mg/dL AST (5-37) U/L ALT (0-40) U/L Alkaline Phosphatase (39-117) U/L Troponin I High Sens (<3.5-35.0) ng/L B-Natriuretic Peptide (<100) pg/mL Total Protein (6.5-8.0) g/dL Albumin (3.5-5.0) g/dL Procalcitonin ng/mL COVID-19 (AC) (Negative) COVID-19 Clin Com ECG Data Attestation: I personally reviewed and interpreted this ECG as follows: ECG interpretation date: 02/17/22 ECG interpretation time: 20:15 Prior ECG tracings: available for review Interpretation: Normal sinus rhythm, heart rate 61 beats per minute, incomplete right bundle branch block, normal QTC, no ST segment elevations or depressions. No major changes from prior. Critical Care Time Critical Care Time Critical Care Time: Yes Total Critical Care Time: 39 Attestation: I have personally provided critical care time exclusive of time spent on separately billable procedures. Time includes review of lab data, radiology results, discussion with consultants, and monitoring for potential decompensation. Intervention performed as documented. Discharge Plan Discharge Clinical Impression: Acute respiratory failure with hypoxia, Pneumonia, STIVEN (acute kidney injury) Patient Disposition: Admitted As Inpatient
[2022-02-17 17:37] VITALS: BP 107/65; BP 116/57; PULSE 60; PULSE 61; RESP 18; TEMP 37.4; O2SAT 88; O2SAT 94; BMI 28.8
[2022-02-17 17:58] LABS: MANUAL DIFF FLAG NO
[2022-02-17 17:59] LABS: Basophils Percent Auto 0.4 % (0-2); Eosinophils Absolute Auto 0.3 X10*3/uL (0.0-0.4); Eosinophils Percent Auto 5.5 % (0-4); Hematocrit 39.8 % (42.0-52.0); Hemoglobin 13.1 g/dl (14.0-18.0); Imm Gran Abs Auto 0.03 X10*3/uL (0.00-0.03); Imm Gran Pct Auto 0.5 % (0.0-0.4); Lymphocytes Absolute Auto 1.9 X10*3/uL (1.2-4.9); Lymphocytes Percent Auto 32.9 % (20-40); Mean Corpuscular HGB Conc 32.9 g/dl (31.0-36.0); Mean Corpuscular Hemoglobin 27.5 pg (27.0-33.0); Mean Corpuscular Volume 83.4 fL (80.0-98.0); Mean Platelet Volume 9.5 fL (9.4-12.4); Monocytes Absolute Auto 0.9 X10*3/uL (0.1-1.2); Monocytes Percent Auto 15.7 % (2-11); Neutrophils Absolute Auto 2.6 x10*3/uL (2.0-8.3); Platelet Count 245 X10*3/uL (160-400); Red Blood Count 4.77 X10*6/uL (4.60-5.80); Red Cell Distribution Width 13.4 % (11.0-16.0); White Blood Count 5.7 X10*3/uL (4.8-10.8)
[2022-02-17 18:03] LABS: VBG Base Excess -3.8 mmol/L; VBG HCO3 20 mmol/L (22-26); VBG pCO2 34 mmHg; VBG pH 7.38 (7.32-7.43); VBG pO2 65 mmHg
[2022-02-17 18:03] LABS: Venous Blood Gas Refer to POC result
[2022-02-17 18:15] LABS: Alanine Aminotransferase 10 U/L (0-40); Albumin Level 3.9 g/dL (3.5-5.0); Alkaline Phosphatase 122 U/L (39-117); Anion Gap 12 (12-20); Aspartate Amino Transferase 13 U/L (5-37); Bilirubin Direct 0.3 mg/dL (0.0-0.5); Bilirubin Total 0.8 mg/dL (0.0-1.0); Blood Urea Nitrogen 31 mg/dL (9-16); Calcium 8.5 mg/dL (8.4-10.2); Carbon Dioxide 26 mmol/L (22-29); Chloride 104 mmol/L (96-108); Estimated Glomerular Filt Rate 45; Glucose Random 150 mg/dL (60-115); Magnesium 2.2 mg/dL (1.6-2.6); Potassium 4.5 mmol/L (3.3-5.1); Sodium 137 mmol/L (135-145); Total Protein 6.7 g/dL (6.5-8.0)
[2022-02-17] MEDS: Albuterol Sulfate (0.083%) 2.5 MG/3 ML VIAL.NEB 5 MG INHALE (18:17)
[2022-02-17 18:20] VITALS: PULSE 58; RESP 14; O2SAT 92
[2022-02-17 18:22] LABS: B Type Natriuretic Peptide 39 pg/mL (<100); Troponin-I High Sensitivity 6.8 ng/L (<3.5-35.0)
[2022-02-17 18:33] LABS: COVID-19 Test Negative (Negative); IDNOW Serial# 16C4AD1C
[2022-02-17 18:36] LABS: Procalcitonin 0.19 ng/mL
--- NOTE | 2022-02-17 18:56 | PHA.MEDREC ---
Pharmacy Consult ? Medication Reconciliation Pharmacy has completed the medication reconciliation. Patient came from [facility] with a medication list. Precious Knight, KenroyD
[2022-02-17] MEDS: 0.9 % Sodium Chloride 1,000 ML 999 ML IVCONT (18:59)
[2022-02-17 19:19] VITALS: BP 115/61; PULSE 63; RESP 18; TEMP 36.7; O2SAT 91
[2022-02-17] MEDS: Ampicillin Sodium/Sulbactam Na 3 GM in 0.9 % Sodium Chloride 100 ML IV (19:55)
[2022-02-17] MEDS: methylPREDNISolone Sod Succ 40 MG/ML VIAL IVPUSH (19:56)
--- NOTE | 2022-02-17 21:34 | PM.IMHP ---
History of Present Illness Date of Service: 02/17/22 Chief Complaint: Shortness of breath 71-year-old male with a past medical history of hypertension, hyperlipidemia, CHF, chronic respiratory failure, history of aspiration pneumonia, hypothyroidism, CAD, history of partial bowel obstruction, history of GI bleed; presented to the hospital today with a chief complaint of shortness of breath. Patient reports that over the past week days he has been having shortness of breath which has been gradually worsening. Complains of cough with brownish sputum production. Denies any chest pain or palpitations. Denies any fevers and chills. Denies any urinary symptoms. Review of all other systems is negative except mentioned above ER course: Per ER team patient on presentation noted to be mildly hypoxic; placed on supplemental oxygen; noted to have coarse breath sounds/rhonchi; chest x-ray concerning for aspiration pneumonia. Given antibiotics. Admitted to the hospital for further management. [facility] Medical History (Updated 02/17/22 @ 20:19 by PHOENIX Berger) Abdomen enlarged Acute on chronic heart failure with preserved ejection fraction (HFpEF) Acute on chronic respiratory failure with hypoxia and hypercapnia Acute renal failure Acute respiratory failure with hypoxia Acute upper gastrointestinal bleeding Afib Altered mental status Aspiration pneumonitis Atypical pneumonia Borderline diabetic CHF exacerbation Congestive heart failure Hypertension Hyperthyroidism Hypoxia Ileus Multifocal pneumonia Myocardial infarct Partial obstruction of small intestine Pulmonary aspiration Sepsis associated hypotension Toxic metabolic encephalopathy Urinary catheter in place Urinary tract infection Social History Household Members: Unknown / Unable to assess Housing: Unknown / Unable to assess Unable to assess alcohol history related to: Unknown Alcohol intake: unknown Smoked in Last 30 Days: No Use of substances other than those prescribed or required for medical reasons: No Substance Use Type: Unknown Advance Directives: Yes Advance Directives on File: Yes Advance Directives Date on File: 10/18/20 service: No Current occupational status: retired Meds Allergies Allergy/AdvReac Type Severity Reaction Status Date / Time No Known Allergies Allergy Verified 07/09/20 19:36 [No Known Allergies*] Active Medications: Current Medications Acetaminophen (Acetaminophen 325 Mg Tablet) 650 mg PO Q6H PRN PRN Reason: Pain, Mild (Pain Scale 1-3) Albuterol/Ipratropium (Albuterol/Iprat 2.5/0.5mg 3 Ml Ampul.Neb) 3 ml INHALE RQ4H WHILE AWAKE [facility] Enoxaparin Sodium (Enoxaparin Sodium 40 Mg/0.4 Ml Syringe) 40 mg SUBCUT Q24H [facility] Piperacillin Sod/Tazobactam (Sod 3.375 gm/ Sodium Chloride) 50 mls @ 100 mls/hr IV Q6H [facility] Melatonin (Melatonin 3 Mg Tablet) 6 mg PO BEDTIME PRN PRN Reason: Insomnia Methylprednisolone Sodium Succinate (Methylprednisolone Sod Succ 40 Mg/Ml Vial) 40 mg IVPUSH Q6H [facility] Pharmacy Consult (Consult Rx Perform Med Rec) 1 each MISCELLANE ONCE PRN PRN Reason: Consult order Senna (Sennosides 8.6 Mg Tablet) 17.2 mg PO BEDTIME PRN PRN Reason: Constipation Sodium Chloride (0.9 % Sodium Chloride Flush 3 Ml Syringe) 3 ml IVFLUSH QSHIFT [facility] Home Medications Medication Instructions Recorded Confirmed Last Taken Type atorvastatin 40 mg tablet 1 tab PO DAILY 10/18/20 02/17/22 Unknown History finasteride 5 mg tablet 1 tab PO DAILY 10/18/20 02/17/22 Unknown History losartan 100 mg tablet 1 tab PO DAILY 10/18/20 02/17/22 Unknown History tamsulosin 0.4 mg capsule 1 cap PO BEDTIME 10/18/20 02/17/22 Unknown History amitriptyline 50 mg tablet 50 mg PO BEDTIME 02/17/22 02/17/22 Unknown History cholecalciferol (vitamin D3) 50 50 mcg PO DAILY 02/17/22 02/17/22 Unknown History mcg (2,000 unit) tablet gabapentin 100 mg capsule 200 mg PO BID 02/17/22 02/17/22 Unknown History metoprolol succinate 100 mg 100 mg PO BID 02/17/22 02/17/22 Unknown History tablet,extended release 24 hr paroxetine HCl 10 mg tablet 10 mg PO DAILY 02/17/22 02/17/22 Unknown History potassium chloride 10 mEq 10 meq PO DAILY 02/17/22 02/17/22 Unknown History tablet,extended release(part/cryst) sennosides 8.6 mg-docusate sodium 2 tab PO BEDTIME 02/17/22 02/17/22 Unknown History 50 mg tablet (Senna Plus) Physical Exam Vital Signs and Narrative: Vital Signs: Last Vital Signs Temp 98.0 F 02/17/22 19:19 Pulse 63 02/17/22 19:19 Resp 18 02/17/22 19:19 BP 115/61 02/17/22 19:19 Pulse Ox 91 L 02/17/22 19:19 O2 Del Method 02/17/22 19:19 Oxygen Flow Rate 4 02/17/22 17:37 BMI result Body Mass Index 28.8 Gen: Appears be in no acute distress. On supplemental oxygen. Speaks in full sentences. HEENT: NCAT, Moist mucosa. Pulmonary: Coarse breath sounds; rhonchi present; bilateral expiratory wheezing noted. CVS: Normal S1-S2 Abdomen: BS+, Soft, Nontender Extremities: Warm well perfused Neuro: Alert and awake. Moves all extremities equally except for right lower extremity-slightly decreased strength-patient reports chronic. Results Labs CBC and Chem 7: 02/17/22 17:51 02/17/22 17:51 Labs: Laboratory Results - last 24 hr 02/17/22 02/17/22 02/17/22 17:51 17:51 17:51 MCV 83.4 MCH 27.5 MCHC 32.9 RDW 13.4 Plt Count 245 MPV 9.5 Immature Gran % (Auto) 0.5 H Neut % (Auto) 45.0 Lymph % (Auto) 32.9 [place] % (Auto) 15.7 H Eos % (Auto) 5.5 H Baso % (Auto) 0.4 Lymph # (Auto) 1.9 [place] # (Auto) 0.9 Eos # (Auto) 0.3 Baso # (Auto) 0.0 Abs Immat Gran (auto) 0.03 Absolute Neuts (auto) 2.6 Absolute Nucleated RBC 0.000 Nucleated RBC % (auto) 0.0 VBG pH VBG pCO2 VBG pO2 VBG HCO3 VBG O2 Saturation VBG Base Excess Anion Gap 12 Estim Creat Clear Calc 48.0 Estimated GFR 45 Random Glucose 150 H Lactic Acid Calcium 8.5 D Magnesium 2.2 Total Bilirubin 0.8 Direct Bilirubin 0.3 AST 13 D ALT 10 Alkaline Phosphatase 122 H D Troponin I High Sens 6.8 B-Natriuretic Peptide 39 Total Protein 6.7 Albumin 3.9 Procalcitonin COVID-19 (AC) COVID-19 Clin Com 02/17/22 02/17/22 02/17/22 17:51 17:51 17:56 MCV MCH MCHC RDW Plt Count MPV Immature Gran % (Auto) Neut % (Auto) Lymph % (Auto) [place] % (Auto) Eos % (Auto) Baso % (Auto) Lymph # (Auto) [place] # (Auto) Eos # (Auto) Baso # (Auto) Abs Immat Gran (auto) Absolute Neuts (auto) Absolute Nucleated RBC Nucleated RBC % (auto) VBG pH 7.38 VBG pCO2 34 VBG pO2 65 VBG HCO3 20 L VBG O2 Saturation 88.0 VBG Base Excess -3.8 Anion Gap Estim Creat Clear Calc Estimated GFR Random Glucose Lactic Acid Calcium Magnesium Total Bilirubin Direct Bilirubin AST ALT Alkaline Phosphatase Troponin I High Sens B-Natriuretic Peptide Total Protein Albumin Procalcitonin 0.19 COVID-19 (AC) Negative COVID-19 Clin Com See Note 02/17/22 18:26 MCV MCH MCHC RDW Plt Count MPV Immature Gran % (Auto) Neut % (Auto) Lymph % (Auto) [place] % (Auto) Eos % (Auto) Baso % (Auto) Lymph # (Auto) [place] # (Auto) Eos # (Auto) Baso # (Auto) Abs Immat Gran (auto) Absolute Neuts (auto) Absolute Nucleated RBC Nucleated RBC % (auto) VBG pH VBG pCO2 VBG pO2 VBG HCO3 VBG O2 Saturation VBG Base Excess Anion Gap Estim Creat Clear Calc Estimated GFR Random Glucose Lactic Acid 1.0 Calcium Magnesium Total Bilirubin Direct Bilirubin AST ALT Alkaline Phosphatase Troponin I High Sens B-Natriuretic Peptide Total Protein Albumin Procalcitonin COVID-19 (AC) COVID-19 Clin Com Imaging Radiologist's Impressions: Impressions Chest X-Ray 02/17/22 18:12 IMPRESSION: Bibasilar medial airspace opacities possibly reflective of atelectasis although aspiration or infection could appear similar. Possible small left pleural effusion similar to prior. Cardiac silhouette is borderline enlarged unchanged from prior. Assessment and Plan (1) Pneumonia: Status: Acute Plan 71-year-old male with a past medical history of hypertension, hyperlipidemia, CHF, chronic respiratory failure, history of aspiration pneumonia, hypothyroidism, CAD, history of partial bowel obstruction, history of GI bleed; presented to the hospital today with a chief complaint of shortness of breath. Pneumonia: Suspected aspiration. Continue Zosyn. MRSA screen. Aspiration precautions. Speech and swallow eval. COPD exacerbation: Continue supplemental oxygen with goal saturation 93%. Solu-Medrol IV. DuoNeb standing and p.r.n.. D-dimer pending STIVEN: Patient's creatinine on presentation is 1.5. Baseline creatinine around 0.7. Gentle IV fluids. History of hypertension: Patient's blood pressure currently on the soft side. Hold home amlodipine, losartan. Reduced the dose of home metoprolol to 25 mg for now. History of CHF: Hold home furosemide for now. History of BPH: Continue home finasteride , Flomax History of anxiety/depression: Continue home amitriptyline, paroxetine DVT prophylaxis: Lovenox Code status: Full code Quality Stroke Does the patient have a stroke diagnosis?: No VTE Prior VTE?: No VTE Risk Level:: Medical - moderate - high VTE Device Contraindication: Treatment Not Indicated VTE Drug Contraindication: N/A - Med Ordered
[2022-02-17 22:14] LABS: D Dimer High Sensitivity 269 NG/ML
[2022-02-17] MEDS: Piperacillin Sodium/Tazobactam 3.375 GM in 0.9 % Sodium Chloride 50 ML IV (22:19)
[2022-02-17] MEDS: Enoxaparin Sodium 40 MG/0.4 ML SYRINGE SUBCUT (22:19)
[2022-02-17 22:39] VITALS: BP 138/69; PULSE 71; RESP 20; TEMP 36.7; O2SAT 90
[2022-02-18] VITALS (13 sets, daily range): BP systolic 113–151; BP diastolic 64–77; PULSE 67–85; RESP 11–20; TEMP 36.4–36.7; O2SAT 92–97
[2022-02-18] MEDS: methylPREDNISolone Sod Succ 40 MG/ML VIAL IVPUSH ×4 (01:45→20:59)
[2022-02-18] MEDS: Piperacillin Sodium/Tazobactam 3.375 GM in 0.9 % Sodium Chloride 50 ML IV ×4 (04:57→23:43)
[2022-02-18 07:38] LABS: Hematocrit 41.7 % (42.0-52.0); Hemoglobin 13.8 g/dl (14.0-18.0); Mean Corpuscular HGB Conc 33.1 g/dl (31.0-36.0); Mean Corpuscular Hemoglobin 27.7 pg (27.0-33.0); Mean Corpuscular Volume 83.7 fL (80.0-98.0); Mean Platelet Volume 9.9 fL (9.4-12.4); Platelet Count 259 X10*3/uL (160-400); Red Blood Count 4.98 X10*6/uL (4.60-5.80); Red Cell Distribution Width 13.1 % (11.0-16.0); White Blood Count 4.2 X10*3/uL (4.8-10.8)
[2022-02-18 07:39] LABS: Anion Gap 16 (12-20); Blood Urea Nitrogen 27 mg/dL (9-16); Calcium 8.3 mg/dL (8.4-10.2); Carbon Dioxide 21 mmol/L (22-29); Chloride 107 mmol/L (96-108); Creatinine Clr Calc Pharmacy 46.8; Estimated Glomerular Filt Rate 44; Glucose Random 292 mg/dL (60-115); Potassium 4.6 mmol/L (3.3-5.1); Sodium 139 mmol/L (135-145)
[2022-02-18 08:09] LABS: Band Neutrophils Percent 2 % (3-5); Basophils Percent Manual 1 % (0-2); Burr Cells 1+ (0-2) /OIF; Lymphocytes Absolute Manual 0.8 X10*3/uL (1.2-4.9); Lymphocytes Percent Manual 18 % (20-40); Monocytes Percent Manual 1 % (2-11); Neutrophils Absolute Manual 3.4 X10*3/uL (2.0-8.3); Neutrophils Percent Manual 78 % (45-73); Ovalocytes 1+ (5-14) /OIF; Platelet Estimate NORMAL (NORMAL); Platelet Morphology Comment NORMAL; RBC Morphology NOTED
--- NOTE | 2022-02-18 08:17 | PC.NURSE ---
Addendum entered by Naomi Moe LPN 02/18/22 11:52: PATIENT A/O X4 PERRLA . LUNGS DIMINISHED . CRACKLES NOTED BILATERALLY IN UPPER LOBES . PATIENT REPORTS PRODUCTIVE COUGH WITH BROWN /YELLOW SPUTUM . SKIN PINK WARM AND DRY . ABDOMEN SOFT -NON DISTENDED . POSITIVE BOWEL SOUND IN ALL QUADRANTS . PATIENT INCONTINENT OF URINE CHANGED WITH ASSISTANCE OF TECH . RT AT BEDSIDE FOR BREATHING TREATMENT . PATIENT AWARE OF PLAN OF CARE . Original Note: PATIENT A/O X4 PERRLA . LUNGS DIMINISHED , CRACKERS NOTED IN UPPER LOBES . PATIENT REPORTS PRODUCTIVE COUGH WITH BROWN / YELLOW SPUTUM .SKIN PINK WARM AND DRY . ABDOMEN SOFT -NON DISTENDED . POSITIVE BOWEL SOUND IN ALL QUADRANTS . PATIENT INCONTINENT OF URINE CHANGED WITH ASSISTANCE OF TECH . RT AT BEDSIDE FOR BREATHING TREATMENT . PATIENT AWARE OF PLAN OF CARE .
[2022-02-18] MEDS: Albuterol/Iprat 2.5/0.5MG 3 ML AMPUL.NEB INHALE ×2 (08:26→11:18)
[2022-02-18] MEDS: Atorvastatin Calcium 40 MG TABLET PO (08:32)
[2022-02-18] MEDS: Furosemide 40 MG TABLET PO (08:32)
[2022-02-18] MEDS: Cholecalciferol (Vitamin D3) 25 MCG TABLET 50 MCG PO (08:33)
[2022-02-18] MEDS: Metoprolol Succinate ER 25 MG TAB.ER.24H PO ×2 (08:33→20:58)
[2022-02-18] MEDS: Gabapentin 100 MG CAPSULE 200 MG PO ×2 (08:34→20:58)
[2022-02-18] MEDS: polyethylene glycoL 3350 17 GM POWD.PACK PO (08:34)
[2022-02-18] MEDS: Finasteride 5 MG TABLET PO (09:26)
[2022-02-18] MEDS: PARoxetine HCL 10 MG TABLET PO (09:52)
[2022-02-18] MEDS: 0.9 % Sodium Chloride Flush 3 ML SYRINGE IVFLUSH ×2 (09:53→17:35)
--- NOTE | 2022-02-18 09:58 | MHC.CM.PN ---
Attempted to meet with patient in regards to discharge planning. Patient currently sleeping. No family present. Will attempt to meet again. Continue to monitor for d/c needs.
--- NOTE | 2022-02-18 12:02 | HO.PM.IMPN ---
Subjective Subjective Date of Service: 02/18/22 Interval History: seen and examined this AM feeling less short of breath, less coughing Review of Systems negative except HPI Physical Exam Vital Signs: Vital Signs: Last Vital Signs Temp 97.6 F 02/18/22 09:54 Pulse 82 02/18/22 11:18 Resp 12 02/18/22 11:18 BP 151/77 H 02/18/22 09:54 Pulse Ox 93 02/18/22 09:54 O2 Del Method 02/18/22 09:54 O2 Flow Rate 2 02/18/22 09:54 Oxygen Flow Rate 3 02/18/22 04:00 BMI result Body Mass Index 28.8 Const: Other: General - no acute distress, appears comfortable Cardiovascular - regular rate and rhythm, S1-S2 Lungs - rales at bases Abdomen - soft, nontender, no rebound or guarding Extremities - no edema bilaterally Neuro - awake and alert, no focal deficits Objective Data Active Medications Acetaminophen (Acetaminophen 325 Mg Tablet) 650 mg PO Q6H PRN PRN Reason: Pain, Mild (Pain Scale 1-3) Albuterol/Ipratropium (Albuterol/Iprat 2.5/0.5mg 3 Ml Ampul.Neb) 3 ml INHALE RQ4H WHILE AWAKE [facility] Last Admin: 02/18/22 11:18 Dose: 3 ml Documented By: OVIDIO Amitriptyline HCl (Amitriptyline Hcl 50 Mg Tablet) 50 mg PO BEDTIME [facility] Atorvastatin Calcium (Atorvastatin Calcium 40 Mg Tablet) 40 mg PO DAILY [facility] Last Admin: 02/18/22 08:32 Dose: 40 mg Documented By: LAYO Enoxaparin Sodium (Enoxaparin Sodium 40 Mg/0.4 Ml Syringe) 40 mg SUBCUT Q24H [facility] Last Admin: 02/17/22 22:19 Dose: 40 mg Documented By: ANDREA Famotidine (Famotidine 20 Mg Tablet) 20 mg PO BEDTIME [facility] Finasteride (Finasteride 5 Mg Tablet) 5 mg PO DAILY [facility] Last Admin: 02/18/22 09:26 Dose: 5 mg Documented By: LAYO Furosemide (Furosemide 40 Mg Tablet) 40 mg PO DAILY [facility]; Protocol Last Admin: 02/18/22 08:32 Dose: 40 mg Documented By: LAYO Gabapentin (Gabapentin 100 Mg Capsule) 200 mg PO BID [facility] Last Admin: 02/18/22 08:34 Dose: 200 mg Documented By: LAYO Piperacillin Sod/Tazobactam (Sod 3.375 gm/ Sodium Chloride) 50 mls @ 100 mls/hr IV Q6H [facility] Last Infusion: 02/18/22 11:50 Dose: 0 mls/hr Documented By: LAYO Melatonin (Melatonin 3 Mg Tablet) 6 mg PO BEDTIME PRN PRN Reason: Insomnia Methylprednisolone Sodium Succinate (Methylprednisolone Sod Succ 40 Mg/Ml Vial) 40 mg IVPUSH Q6H [facility] Last Admin: 02/18/22 08:35 Dose: 40 mg Documented By: LAYO Metoprolol Succinate (Metoprolol Succinate Er 25 Mg Tab.Er.24h) 25 mg PO BID [facility]; Protocol Last Admin: 02/18/22 08:33 Dose: 25 mg Documented By: LAYO Paroxetine HCl (Paroxetine Hcl 10 Mg Tablet) 10 mg PO DAILY [facility] Last Admin: 02/18/22 09:52 Dose: 10 mg Documented By: LAYO Pharmacy Consult (Consult Rx Perform Med Rec) 1 each MISCELLANE ONCE PRN PRN Reason: Consult order Polyethylene Glycol (Polyethylene Glycol 3350 17 Gm Powd.Pack) 17 gm PO DAILY [facility] Last Admin: 02/18/22 08:34 Dose: 17 gm Documented By: LAYO Senna (Sennosides 8.6 Mg Tablet) 17.2 mg PO BEDTIME PRN PRN Reason: Constipation Senna/Docusate Sodium (Sennosides/Docusate Sodium Tablet) 2 tab PO BEDTIME [facility] Sodium Chloride (0.9 % Sodium Chloride Flush 3 Ml Syringe) 3 ml IVFLUSH QSHIFT [facility] Last Admin: 02/18/22 09:53 Dose: 3 ml Documented By: LAYO Tamsulosin HCl (Tamsulosin Hcl 0.4 Mg Capsule) 0.4 mg PO BEDTIME [facility] Vitamin D (Cholecalciferol (Vitamin D3) 25 Mcg Tablet) 50 mcg PO DAILY [facility] Last Admin: 02/18/22 08:33 Dose: 50 mcg Documented By: LAYO Labs CBC & Chem 7: 02/18/22 07:13 02/18/22 07:13 Labs: Laboratory Results - last 24 hr 02/17/22 02/17/22 02/17/22 17:51 17:51 17:51 MCV 83.4 MCH 27.5 MCHC 32.9 RDW 13.4 Plt Count 245 MPV 9.5 Immature Gran % (Auto) 0.5 H Neut % (Auto) 45.0 Lymph % (Auto) 32.9 [place] % (Auto) 15.7 H Eos % (Auto) 5.5 H Baso % (Auto) 0.4 Lymph # (Auto) 1.9 [place] # (Auto) 0.9 Eos # (Auto) 0.3 Baso # (Auto) 0.0 Abs Immat Gran (auto) 0.03 Absolute Neuts (auto) 2.6 Absolute Nucleated RBC 0.000 Nucleated RBC % (auto) 0.0 Neutrophils % (Manual) Band Neutrophils % Lymphocytes % (Manual) Monocytes % (Manual) Basophils % (Manual) Abs Neuts (Manual) Lymphocytes # (Manual) Platelet Estimate Plt Morphology Comment RBC Morphology Ovalocytes Mike Cells D-Dimer High Sensitivty VBG pH VBG pCO2 VBG pO2 VBG HCO3 VBG O2 Saturation VBG Base Excess Anion Gap 12 Estim Creat Clear Calc 48.0 Estimated GFR 45 Random Glucose 150 H Lactic Acid Calcium 8.5 D Magnesium 2.2 Total Bilirubin 0.8 Direct Bilirubin 0.3 AST 13 D ALT 10 Alkaline Phosphatase 122 H D Troponin I High Sens 6.8 B-Natriuretic Peptide 39 Total Protein 6.7 Albumin 3.9 Procalcitonin COVID-19 (AC) COVID-19 Clin Com 02/17/22 02/17/22 02/17/22 17:51 17:51 17:56 MCV MCH MCHC RDW Plt Count MPV Immature Gran % (Auto) Neut % (Auto) Lymph % (Auto) [place] % (Auto) Eos % (Auto) Baso % (Auto) Lymph # (Auto) [place] # (Auto) Eos # (Auto) Baso # (Auto) Abs Immat Gran (auto) Absolute Neuts (auto) Absolute Nucleated RBC Nucleated RBC % (auto) Neutrophils % (Manual) Band Neutrophils % Lymphocytes % (Manual) Monocytes % (Manual) Basophils % (Manual) Abs Neuts (Manual) Lymphocytes # (Manual) Platelet Estimate Plt Morphology Comment RBC Morphology Ovalocytes [place] Cells D-Dimer High Sensitivty VBG pH 7.38 VBG pCO2 34 VBG pO2 65 VBG HCO3 20 L VBG O2 Saturation 88.0 VBG Base Excess -3.8 Anion Gap Estim Creat Clear Calc Estimated GFR Random Glucose Lactic Acid Calcium Magnesium Total Bilirubin Direct Bilirubin AST ALT Alkaline Phosphatase Troponin I High Sens B-Natriuretic Peptide Total Protein Albumin Procalcitonin 0.19 COVID-19 (AC) Negative COVID-19 Clin Com See Note 02/17/22 02/17/22 02/18/22 18:26 21:56 07:13 MCV 83.7 MCH 27.7 MCHC 33.1 RDW 13.1 Plt Count 259 MPV 9.9 Immature Gran % (Auto) Cancelled Neut % (Auto) Cancelled Lymph % (Auto) Cancelled [place] % (Auto) Cancelled Eos % (Auto) Cancelled Baso % (Auto) Cancelled Lymph # (Auto) Cancelled [place] # (Auto) Cancelled Eos # (Auto) Cancelled Baso # (Auto) Cancelled Abs Immat Gran (auto) Cancelled Absolute Neuts (auto) Cancelled Absolute Nucleated RBC 0.000 Nucleated RBC % (auto) 0.0 Neutrophils % (Manual) 78 H Band Neutrophils % 2 L Lymphocytes % (Manual) 18 L Monocytes % (Manual) 1 L Basophils % (Manual) 1 Abs Neuts (Manual) 3.4 Lymphocytes # (Manual) 0.8 L Platelet Estimate NORMAL Plt Morphology Comment NORMAL RBC Morphology NOTED Ovalocytes 1+ (5-14) [place] Cells 1+ (0-2) D-Dimer High Sensitivty 269 VBG pH VBG pCO2 VBG pO2 VBG HCO3 VBG O2 Saturation VBG Base Excess Anion Gap Estim Creat Clear Calc Estimated GFR Random Glucose Lactic Acid 1.0 Calcium Magnesium Total Bilirubin Direct Bilirubin AST ALT Alkaline Phosphatase Troponin I High Sens B-Natriuretic Peptide Total Protein Albumin Procalcitonin COVID-19 (AC) COVID-19 Clin Com 02/18/22 07:13 MCV MCH MCHC RDW Plt Count MPV Immature Gran % (Auto) Neut % (Auto) Lymph % (Auto) [place] % (Auto) Eos % (Auto) Baso % (Auto) Lymph # (Auto) [place] # (Auto) Eos # (Auto) Baso # (Auto) Abs Immat Gran (auto) Absolute Neuts (auto) Absolute Nucleated RBC Nucleated RBC % (auto) Neutrophils % (Manual) Band Neutrophils % Lymphocytes % (Manual) Monocytes % (Manual) Basophils % (Manual) Abs Neuts (Manual) Lymphocytes # (Manual) Platelet Estimate Plt Morphology Comment RBC Morphology Ovalocytes [place] Cells D-Dimer High Sensitivty VBG pH VBG pCO2 VBG pO2 VBG HCO3 VBG O2 Saturation VBG Base Excess Anion Gap 16 Estim Creat Clear Calc 46.8 Estimated GFR 44 Random Glucose 292 H D Lactic Acid Calcium 8.3 L Magnesium Total Bilirubin Direct Bilirubin AST ALT Alkaline Phosphatase Troponin I High Sens B-Natriuretic Peptide Total Protein Albumin Procalcitonin COVID-19 (AC) COVID-19 Clin Com Assessment and Plan (1) Acute respiratory failure with hypoxia: Status: Acute Plan This is a 71 yo M with a PMH of DM, CHF, HTN, CAP s/p [place], chronic constipaton who presented to [facility] after he was found to be hypoxic at rehab down to 88% on RA. 1. Acute respiratory failure with hypoxia, present on arrival and admission desaturated down to 88% on RA and now requiring 4L to maintain sats above 90% continue o2 2. Suspected aspiration pneumonia iv zosyn 3. COPD exacerbation likely due to pneumonia updrafts and steroids 3. STIVEN SCr baseline around 0.7 now presented with 1.5 -- 2x baseline trend 4. Mood continue his baseline meds Full Code DVT pptx, Lovenox Patient requires continued hospitalization as he is still requiring oxygen. Furthermore, his renal function remains elevated and has not improved. Quality Stroke Does the patient have a stroke diagnosis?: No VTE Prior VTE?: No VTE Risk Level:: Medical - moderate - high VTE Device Contraindication: Treatment Not Indicated VTE Drug Contraindication: N/A - Med Ordered
[2022-02-18] MEDS: Tamsulosin HCL 0.4 MG CAPSULE PO (20:57)
[2022-02-18] MEDS: Sennosides/Docusate Sodium TABLET 2 TAB PO (20:58)
[2022-02-18] MEDS: Famotidine 20 MG TABLET PO (20:58)
[2022-02-18] MEDS: Amitriptyline HCl 50 MG TABLET PO (21:00)
--- NOTE | 2022-02-18 22:53 | PC.NURSE ---
PT HAS BEEN RESTING IN NAD, RESP EVEN, NONLABOURED. SPEAKING IN CLEAR FULL SENTENCES. LINENS CHANGED NEEDED, NO SKIN BREAKDOWN NOTED.
[2022-02-18] MEDS: Enoxaparin Sodium 40 MG/0.4 ML SYRINGE SUBCUT (23:40)
--- NOTE | 2022-02-18 23:57 | PC.NURSE ---
administered meds to pt per MAR
[2022-02-19] VITALS (9 sets, daily range): BP systolic 114–160; BP diastolic 49–77; PULSE 66–84; RESP 16–18; TEMP 36.1–36.5; O2SAT 93–98
[2022-02-19] MEDS: methylPREDNISolone Sod Succ 40 MG/ML VIAL IVPUSH ×2 (02:25→08:57)
[2022-02-19] MEDS: Piperacillin Sodium/Tazobactam 3.375 GM in 0.9 % Sodium Chloride 50 ML IV ×4 (05:06→22:59)
--- NOTE | 2022-02-19 05:25 | PC.NURSE ---
administered medication per MAR
--- NOTE | 2022-02-19 05:52 | PC.NURSE ---
gave report to S3 nurse for pt to go to room 347-1
--- NOTE | 2022-02-19 07:26 | PC.NURSE ---
Patient is alert and oriented. Sitting in bed eating breakfast. O2 94% RASuleiman Adnrade catheter out of place with soiled bed pad. Pt voided 150cc.
[2022-02-19] MEDS: polyethylene glycoL 3350 17 GM POWD.PACK PO (08:57)
[2022-02-19] MEDS: Atorvastatin Calcium 40 MG TABLET PO (08:58)
[2022-02-19] MEDS: 0.9 % Sodium Chloride Flush 3 ML SYRINGE IVFLUSH ×3 (08:58→21:07)
[2022-02-19] MEDS: Gabapentin 100 MG CAPSULE 200 MG PO ×2 (08:58→21:06)
[2022-02-19] MEDS: Finasteride 5 MG TABLET PO (08:58)
[2022-02-19] MEDS: Metoprolol Succinate ER 25 MG TAB.ER.24H PO ×2 (08:58→21:06)
[2022-02-19] MEDS: Cholecalciferol (Vitamin D3) 25 MCG TABLET 50 MCG PO (08:58)
[2022-02-19] MEDS: PARoxetine HCL 10 MG TABLET PO (09:00)
[2022-02-19 09:22] LABS: Anion Gap 17 (12-20); Carbon Dioxide 20 mmol/L (22-29); Chloride 106 mmol/L (96-108); Potassium 5.1 mmol/L (3.3-5.1); Sodium 138 mmol/L (135-145)
[2022-02-19 09:23] LABS: Blood Urea Nitrogen 24 mg/dL (9-16); Calcium 8.7 mg/dL (8.4-10.2); Creatinine Clr Calc Pharmacy 51.7; Estimated Glomerular Filt Rate 49
[2022-02-19 09:28] LABS: Glucose Random 399 mg/dL (60-115)
--- NOTE | 2022-02-19 09:38 | HO.PM.IMPN ---
Subjective Subjective Date of Service: 02/19/22 Interval History: seen and examined this AM breathing easier and less cough denies fevers or chills Review of Systems negative except HPI Physical Exam Vital Signs: Vital Signs: Last Vital Signs Temp 97.5 F 02/19/22 08:00 Pulse 72 02/19/22 08:00 Resp 18 02/19/22 08:00 BP 160/70 H 02/19/22 08:00 Pulse Ox 94 02/19/22 08:00 O2 Del Method 02/19/22 08:00 O2 Flow Rate 2.5 02/19/22 04:00 Oxygen Flow Rate 3 02/18/22 04:00 BMI result Body Mass Index 28.8 Const: Other: General - no acute distress, appears comfortable Cardiovascular - regular rate and rhythm, S1-S2 Lungs - rales at bases Abdomen - soft, nontender, no rebound or guarding Extremities - no edema bilaterally Neuro - awake and alert, no focal deficits Objective Data Active Medications Acetaminophen (Acetaminophen 325 Mg Tablet) 650 mg PO Q6H PRN PRN Reason: Pain, Mild (Pain Scale 1-3) Albuterol/Ipratropium (Albuterol/Iprat 2.5/0.5mg 3 Ml Ampul.Neb) 3 ml INHALE RQ4H WHILE AWAKE [facility] Last Admin: 02/19/22 08:00 Dose: Not Given Documented By: AMPARO Non-Admin Reason: pt unavail Amitriptyline HCl (Amitriptyline Hcl 50 Mg Tablet) 50 mg PO BEDTIME [facility] Last Admin: 02/18/22 21:00 Dose: 50 mg Documented By: HI Atorvastatin Calcium (Atorvastatin Calcium 40 Mg Tablet) 40 mg PO DAILY [facility] Last Admin: 02/19/22 08:58 Dose: 40 mg Documented By: MATIAS Enoxaparin Sodium (Enoxaparin Sodium 40 Mg/0.4 Ml Syringe) 40 mg SUBCUT Q24H [facility] Last Admin: 02/18/22 23:40 Dose: 40 mg Documented By: ANGEL Famotidine (Famotidine 20 Mg Tablet) 20 mg PO BEDTIME [facility] Last Admin: 02/18/22 20:58 Dose: 20 mg Documented By: HI Finasteride (Finasteride 5 Mg Tablet) 5 mg PO DAILY [facility] Last Admin: 02/19/22 08:58 Dose: 5 mg Documented By: MATIAS Gabapentin (Gabapentin 100 Mg Capsule) 200 mg PO BID [facility] Last Admin: 02/19/22 08:58 Dose: 200 mg Documented By: MATIAS Piperacillin Sod/Tazobactam (Sod 3.375 gm/ Sodium Chloride) 50 mls @ 100 mls/hr IV Q6H [facility] Last Infusion: 02/19/22 05:34 Dose: 0 mls/hr Documented By: ANGEL Melatonin (Melatonin 3 Mg Tablet) 6 mg PO BEDTIME PRN PRN Reason: Insomnia Methylprednisolone Sodium Succinate (Methylprednisolone Sod Succ 40 Mg/Ml Vial) 40 mg IVPUSH Q6H [facility] Last Admin: 02/19/22 08:57 Dose: 40 mg Documented By: MATIAS Metoprolol Succinate (Metoprolol Succinate Er 25 Mg Tab.Er.24h) 25 mg PO BID [facility]; Protocol Last Admin: 02/19/22 08:58 Dose: 25 mg Documented By: MATIAS Paroxetine HCl (Paroxetine Hcl 10 Mg Tablet) 10 mg PO DAILY [facility] Last Admin: 02/19/22 09:00 Dose: 10 mg Documented By: MATIAS Pharmacy Consult (Consult Rx Perform Med Rec) 1 each MISCELLANE ONCE PRN PRN Reason: Consult order Polyethylene Glycol (Polyethylene Glycol 3350 17 Gm Powd.Pack) 17 gm PO DAILY [facility] Last Admin: 02/19/22 08:57 Dose: 17 gm Documented By: MATIAS Senna (Sennosides 8.6 Mg Tablet) 17.2 mg PO BEDTIME PRN PRN Reason: Constipation Senna/Docusate Sodium (Sennosides/Docusate Sodium Tablet) 2 tab PO BEDTIME [facility] Last Admin: 02/18/22 20:58 Dose: 2 tab Documented By: HI Sodium Chloride (0.9 % Sodium Chloride Flush 3 Ml Syringe) 3 ml IVFLUSH QSHIFT [facility] Last Admin: 02/19/22 08:58 Dose: 3 ml Documented By: MATIAS Tamsulosin HCl (Tamsulosin Hcl 0.4 Mg Capsule) 0.4 mg PO BEDTIME [facility] Last Admin: 02/18/22 20:57 Dose: 0.4 mg Documented By: HI Vitamin D (Cholecalciferol (Vitamin D3) 25 Mcg Tablet) 50 mcg PO DAILY [facility] Last Admin: 02/19/22 08:58 Dose: 50 mcg Documented By: MATIAS Labs CBC & Chem 7: 02/18/22 07:13 02/19/22 08:19 Labs: Laboratory Results - last 24 hr 02/19/22 08:19 Anion Gap 17 Estim Creat Clear Calc 51.7 Estimated GFR 49 Random Glucose 399 H* Calcium 8.7 Microbiology Microbiology Results: Microbiology 02/17/22 20:09 Blood Culture - Preliminary Blood - Venous No growth after 24 hours. 02/17/22 20:09 Blood Culture - Preliminary Blood - Venous No growth after 24 hours. Assessment and Plan (1) Pneumonia: Status: Acute Plan This is a 71 yo M with a PMH of DM, CHF, HTN, CAP s/p [place], chronic constipaton who presented to [facility] after he was found to be hypoxic at rehab down to 88% on RA. 1. Acute respiratory failure with hypoxia, present on arrival and admission desaturated down to 88% on RA and now requiring 4L to maintain sats above 90% imiproving slowly, tolerating RA this AM 2. Suspected aspiration pneumonia iv zosyn 3. COPD exacerbation likely due to pneumonia updrafts and steroids -- start prednisone taper 3. STIVEN SCr baseline around 0.7 presented with 1.5 -- 2x baseline improving 4. Hyperglycemia last a1c in October 2020 was 6.8; not on any meds; will check a1c now POC qidac; may need sliding scale 5. Mood continue his baseline meds Full Code DVT pptx, Lovenox Need for continued hospitalization: Patient has been weaned off oxygen this AM, but did desaturate previously when weaned, hence will monitor for 24 hours off O2. Furthermore, he has significant hyperglycemia and may need to be initiated on DM meds Quality Stroke Does the patient have a stroke diagnosis?: No VTE Prior VTE?: No VTE Risk Level:: Medical - moderate - high VTE Device Contraindication: Treatment Not Indicated VTE Drug Contraindication: N/A - Med Ordered
[2022-02-19 10:36] LABS: Estimated Average Glucose 131 mg/dL; Hemoglobin A1c % 6.2 %
[2022-02-19] MEDS: Albuterol/Iprat 2.5/0.5MG 3 ML AMPUL.NEB INHALE ×3 (11:13→20:45)
[2022-02-19 11:16] LABS: Glucose, Whole Blood 369 mg/dL (60-115)
[2022-02-19] MEDS: Insulin Lispro 100 UNIT/ML 3 ML VIAL SUBCUT ×3 (13:01→21:06)
[2022-02-19 16:41] LABS: Glucose, Whole Blood 386 mg/dL (60-115)
[2022-02-19 19:41] LABS: Glucose, Whole Blood 340 mg/dL (60-115)
[2022-02-19] MEDS: Sennosides/Docusate Sodium TABLET 2 TAB PO (21:06)
[2022-02-19] MEDS: Famotidine 20 MG TABLET PO (21:06)
[2022-02-19] MEDS: Tamsulosin HCL 0.4 MG CAPSULE PO (21:06)
[2022-02-19] MEDS: Amitriptyline HCl 50 MG TABLET PO (21:06)
[2022-02-19] MEDS: Enoxaparin Sodium 40 MG/0.4 ML SYRINGE SUBCUT (21:07)
[2022-02-20] VITALS: BP 154/67; PULSE 56; RESP 18; TEMP 36.4; O2SAT 91
[2022-02-20 04:00] VITALS: BP 137/68; PULSE 60; RESP 18; TEMP 36.5; O2SAT 90
[2022-02-20] MEDS: Piperacillin Sodium/Tazobactam 3.375 GM in 0.9 % Sodium Chloride 50 ML IV ×2 (04:43→11:44)
[2022-02-20 06:54] VITALS: BP 153/70; PULSE 57; RESP 18; TEMP 36.6; O2SAT 90
[2022-02-20 07:13] LABS: Glucose, Whole Blood 135 mg/dL (60-115)
[2022-02-20 07:37] VITALS: PULSE 83; RESP 16; O2SAT 96
[2022-02-20] MEDS: Albuterol/Iprat 2.5/0.5MG 3 ML AMPUL.NEB INHALE ×2 (07:37→11:34)
--- NOTE | 2022-02-20 08:59 | P.DS_ITS ---
DS: Providers Provider Date of Service: 02/20/22 Date of admission: 02/17/22 21:31 Primary care physician: Tim Seaman MD DS: Diagnosis Discharge Diagnosis (1) Aspiration pneumonia: Status: Acute (2) Acute respiratory failure with hypoxia: Status: Acute (3) COPD exacerbation: Status: Acute (4) STIVEN (acute kidney injury): Status: Acute DS: Summary Hospital Course Hospital Course: From the admission H&P: 71-year-old male with a past medical history of hypertension, hyperlipidemia, CHF, chronic respiratory failure, history of aspiration pneumonia, hypothyroidism, CAD, history of partial bowel obstruction, history of GI bleed; presented to the hospital today with a chief complaint of shortness of breath.? Patient reports that over the past week days he has been having shortness of breath which has been gradually worsening.? Complains of cough with brownish sputum production.? Denies any chest pain or palpitations.? Denies any fevers and chills.? Denies any urinary symptoms.? Review of all other systems is negative except mentioned above ER course: Per ER team patient on presentation noted to be mildly hypoxic; placed on s upplemental oxygen; noted to have coarse breath sounds/rhonchi; chest x-ray concerning for aspiration pneumonia.? Given antibiotics.? Admitted to the hospital for further management. Hospital Course: Patient was started on IV antibiotics and IV steroids for presumed aspiration pneumonia and COPD exacerbation. He required supplemental oxygen to maintain normal O2 saturations. He also was given intravenous fluids for acute kidney injury. Over the course of 3 nights in the hospital, the patient's hypoxia resolved. His respiratory status improved and he will now be transition to oral doxycycline and Augmentin for 5 more days as well as prednisone for 5 more days. In regards to his acute kidney injury, his serum creatinine is trending towards his baseline. Finally, the patient was noted to be hyperglycemic in the hospital. An A1c was checked and it is value was below 6.5, but in the prediabetic range. The patient is not on any meds for diabetes and sliding scale was used in the hospital. He should be on a diabetic diet and sliding scale can be used while he is on prednisone. Alternatively consideration for starting metformin can be made, however this will be deferred to his outpatient providers. Time Spent with Patient Time attestation: Total time spent providing and/or coordinating discharge services: Discharge coordination time: Greater than 30 minutes Quality: Safe Use of Opioids Does Pt have an Active Cancer Diagnosis on the Problem List?: No Quality: Stroke Does the patient have a stroke diagnosis?: No Physical Exam Vital Signs: Vital Signs: Last Vital Signs Temp 97.8 F 02/20/22 06:54 Pulse 83 02/20/22 07:37 Resp 16 02/20/22 07:37 BP 153/70 H 02/20/22 06:54 Pulse Ox 90 L 02/20/22 06:54 O2 Del Method 02/20/22 06:54 O2 Flow Rate 2.5 02/19/22 04:00 Oxygen Flow Rate 3 02/18/22 04:00 BMI result Body Mass Index 28.8 Const: Other: General - no acute distress, appears comfortable Cardiovascular - regular rate and rhythm, S1-S2 Lungs - normal respiratory effort, clear to auscultation bilaterally, no wheezing Abdomen - soft, nontender, no rebound or guarding Extremities - no edema bilaterally Neuro - awake and alert, no focal deficits DS: Data Data Completed and Pending Completed studies during hospitalization [Text1]: Procedures Insertion of Endotracheal Airway into Trachea, Via Natural or Artificial Opening (10/17/20) Insertion of Endotracheal Airway into Trachea, Via Natural or Artificial Opening Endoscopic (10/17/20) Introduction of Vasopressor into Peripheral Vein, Percutaneous Approach (10/17/20) Respiratory Ventilation, Greater than 96 Consecutive Hours (10/17/20) Labs on day of discharge: Laboratory Results - last 24 hr 02/18/22 02/19/22 02/19/22 07:13 08:19 11:04 Sodium 138 Potassium 5.1 Chloride 106 Carbon Dioxide 20 L Anion Gap 17 BUN 24 H Creatinine 1.42 H Estim Creat Clear Calc 51.7 Estimated GFR 49 POC Glucose 369 H* Random Glucose 399 H* Estimat Average Glucose 131 Hemoglobin A1c % 6.2 Calcium 8.7 02/19/22 02/19/22 02/20/22 15:29 19:13 07:00 Sodium Potassium Chloride Carbon Dioxide Anion Gap BUN Creatinine Estim Creat Clear Calc Estimated GFR POC Glucose 386 H* 340 H 135 H Random Glucose Estimat Average Glucose Hemoglobin A1c % Calcium Preliminary micro results at discharge 02/17/22 20:09 Blood Culture - Preliminary Blood - Venous No growth after 48 hours. 02/17/22 20:09 Blood Culture - Preliminary Blood - Venous No growth after 48 hours. Discharge Plan Discharge Patient Disposition: Xfer SNF Discharge Diagnosis: pneumonia, copd, hyperglycemia Referrals: Tim Seaman MD [Primary Care Provider] - 1 Week Discharge Medications: New amoxicillin-pot clavulanate 875-125 mg tablet 1 tab PO Q12H Qty: 10 0RF doxycycline hyclate 100 mg capsule 100 mg PO BID Qty: 10 0RF prednisone 20 mg tablet 40 mg PO DAILY Qty: 10 0RF Continued atorvastatin 40 mg tablet 1 tab PO DAILY tamsulosin 0.4 mg capsule 1 cap PO BEDTIME losartan 100 mg tablet 1 tab PO DAILY finasteride 5 mg tablet 1 tab PO DAILY furosemide 40 mg Tablet 40 mg PO DAILY Qty: 30 0RF Protocol: Hold for SBP< HOLD for SBP < : 90 amlodipine 5 mg Tablet 10 mg PO DAILY Qty: 30 0RF Protocol: Hold for SBP< HOLD for SBP < : 90 famotidine 20 mg Tablet 20 mg PO BEDTIME Qty: 30 0RF polyethylene glycol 3350 [Miralax] 17 gram powder in packet 17 g PO DAILY Qty: 30 0RF paroxetine HCl 10 mg Tablet 10 mg PO DAILY metoprolol succinate 100 mg Tablet Extended Release 24 Hr 100 mg PO BID amitriptyline 50 mg Tablet 50 mg PO BEDTIME gabapentin 100 mg Capsule 200 mg PO BID potassium chloride 10 mEq Tablet,Er Particles/Crystals 10 meq PO DAILY cholecalciferol (vitamin D3) 50 mcg (2,000 unit) Tablet 50 mcg PO DAILY sennosides-docusate sodium [Senna Plus] 8.6-50 mg tablet 2 tab PO BEDTIME Discharge Orders: Discharge Order (Routine); Ordered 02/20/22 Ordered By: Michael Esteves Diet: Diabetic diet Activity on Discharge: As tolerated Stand Alone Forms: Patient Portal Discharge page Care Plan Goals: To stay healthy and out of the hospital. Health Concerns: Pneumonia COPD Hyperglycemia Plan of Treatment: Take prednisone, augmentin/doxy for 5 days check your blood sugars while on prednisone Assessment: see discharge summary
[2022-02-20] MEDS: 0.9 % Sodium Chloride Flush 3 ML SYRINGE IVFLUSH (09:41)
[2022-02-20] MEDS: polyethylene glycoL 3350 17 GM POWD.PACK PO (09:41)
[2022-02-20] MEDS: Finasteride 5 MG TABLET PO (09:42)
[2022-02-20] MEDS: Metoprolol Succinate ER 25 MG TAB.ER.24H PO (09:42)
[2022-02-20] MEDS: Atorvastatin Calcium 40 MG TABLET PO (09:42)
[2022-02-20] MEDS: Gabapentin 100 MG CAPSULE 200 MG PO (09:42)
[2022-02-20] MEDS: PARoxetine HCL 10 MG TABLET PO (09:42)
[2022-02-20] MEDS: Cholecalciferol (Vitamin D3) 25 MCG TABLET 50 MCG PO (09:42)
[2022-02-20] MEDS: predniSONE 20 MG TABLET 40 MG PO (09:42)
[2022-02-20 10:48] VITALS: BP 140/69; PULSE 64; RESP 18; TEMP 36.2; O2SAT 90
[2022-02-20 11:15] LABS: Glucose, Whole Blood 224 mg/dL (60-115)
[2022-02-20 11:37] VITALS: PULSE 63; RESP 18; O2SAT 91
[2022-02-20] MEDS: Insulin Lispro 100 UNIT/ML 3 ML VIAL SUBCUT (11:45)
--- NOTE | 2022-02-20 12:34 | MHC.CM.PN ---
PER HOSPITALIST PT MEDICALLY CLEARED TO RETURN TO [facility] TODAY, ACTION FOR BLS TRANSPORT.
[2022-02-20 13:11] LABS: COVID-19 Test Negative (Negative)
--- NOTE | 2022-02-20 14:35 | MHC.CM.PN ---
IMM 02/20/2022, CM MET W/PT AT BEDSIDE PT REPORTS HE HAS BEEN AT [facility] FOR ABOUT 1 YR AND D/C PLAN WILL BE TO RETURN, PER HOSPITALIST WILL PLAN FOR D/C BACK TO SNF TODAY 02/20/22 AT APPROX 2PM, RAPID COVID NEG.
== END 2022-02-20 14:42 | disposition skilled nursing facility (03) | DRG 177 ==
LOC: HO.ED 20:19 → HO.EDOVER 21:37 → HO.S3 02-19 05:43
PROVIDERS: Physician Assistant; Admitting Provider Hospitalist; Emergency Provider Internal Medicine; PCP Internal Medicine; Visit Provider Family Medicine
DX: J69.0 Pneumonitis due to inhalation of food and vomit (principal); J96.01 Acute respiratory failure with hypoxia; N17.9 Acute kidney failure, unspecified; J44.1 Chronic obstructive pulmonary disease with (acute) exacerbation; I50.32 Chronic diastolic (congestive) heart failure; E03.9 Hypothyroidism, unspecified; I25.10 Atherosclerotic heart disease of native coronary artery without angina pectoris; I11.0 Hypertensive heart disease with heart failure; I48.91 Unspecified atrial fibrillation; N40.0 Benign prostatic hyperplasia without lower urinary tract symptoms; R73.9 Hyperglycemia, unspecified; F41.9 Anxiety disorder, unspecified; F32.A Depression, unspecified; I25.2 Old myocardial infarction; I69.341 Monoplegia of lower limb following cerebral infarction affecting right dominant side; Z20.822 Contact with and (suspected) exposure to COVID-19; Z79.899 Other long term (current) drug therapy
CPT/HCPCS: 36415; 71045; 80048; 80076; 82803; 82947; 83036; 83605; 83735; 83880; 84145; 84484; 85007; 85025; 85027; 85379; 87040; 87635; 93005; 94640; 94644; 94664; 96361; 96365; 96375; 99285; J0295; J1650; J2543; J2920

== ENCOUNTER 2022-11-12 18:53 | Inpatient (IN) | payer MEDICARE, OTHER, SELFPAY ==
[2022-11-12] VITALS (8 sets, daily range): BP systolic 101–155; BP diastolic 52–63; PULSE 93–134; RESP 20–25; TEMP 36.8–38.6; O2SAT 90–92; BMI 29.5
--- NOTE | ~2022-11-12 | US_ITS ---
EXAMINATION: US ABDOMEN LIMITED CLINICAL INFORMATION: Cholecystitis. COMPARISON: CT dated 11/12/2022 TECHNIQUE: Real-time imaging of the right upper quadrant abdominal viscera. FINDINGS: PANCREAS: Obscured by bowel gas. LIVER: Normal. The liver is normal in size. The liver contour is normal. There is diffuse increased liver parenchymal echogenicity, consistent with hepatic steatosis. No focal hepatic lesion. There is no intrahepatic biliary duct dilatation seen. GALLBLADDER: Stones in sludge present within the nondistended gallbladder. The gallbladder wall is mildly thickened at 3.4 mm. No pericholecystic fluid or inflammation. Sonographic Chicas sign is negative. COMMON BILE DUCT: Normal in caliber measuring 0.23 cm in diameter. FREE FLUID: None. US/US abdomen limited IMPRESSION: * Cholelithiasis and gallbladder sludge. There is mild gallbladder wall thickening, which is nonspecific. No pericholecystic fluid or sonographic Chicas sign to suggest cholecystitis. * Hepatic steatosis.
--- NOTE | ~2022-11-12 | FL_ITS ---
EXAMINATION: XR FLUOROSCOPY WITH IMAGES CLINICAL INFORMATION: Cystoscopy COMPARISON: CT abdomen/pelvis from 11/12/2022 TECHNIQUE: Fluoroscopy Supervised By: Dr. Javier Fluoroscopy Time: 259.2 seconds. Cumulative Dose: 105.79 mGy. DAP: This information is not recorded. Images: 6. FL/FL guidance in OR FINDINGS AND IMPRESSION: The urinary bladder has a trabeculated-appearing wall and a bilobed appearance. There is iodinated contrast within the bladder. Fluoroscopic imaging was performed during the cystoscopy procedure.
--- NOTE | ~2022-11-12 | CT_ITS ---
EXAMINATION: CT ABDOMEN AND PELVIS WITHOUT CONTRAST CLINICAL INFORMATION: Abdominal pain COMPARISON: CT abdomen pelvis 10/17/2020 TECHNIQUE: Multidetector volumetric imaging was performed from the superior aspect of the liver through the pubic symphysis. Sagittal and coronal reformatted images were obtained on the technologist's workstation. This CT examination was performed using dose optimization techniques as appropriate, variously including the following: *Automated exposure control *Adjustment of mA and/or kV according to patient size (this includes techniques or standardized protocols for targeted exams where dose is matched to indication/reason for exam; i.e. extremities or head) *Use of iterative reconstruction technique DLP: 783 mGy-cm FINDINGS: LUNG BASES: Streaky bibasilar atelectasis. Tiny calcified granuloma in the left lung base. ABDOMINAL AND PELVIC WALL: Unremarkable. LIVER AND BILIARY TREE: Hypoattenuating hepatic parenchyma compatible with hepatic steatosis. GALLBLADDER: Intermediate density material layering within the gallbladder, unclear if this could reflect noncalcified stones, sludge or gallbladder wall thickening, recommend correlation with nonemergent right upper quadrant ultrasound. There are no findings to suggest acute cholecystitis. PANCREAS: Unremarkable. SPLEEN: Unremarkable. ADRENAL GLANDS: Unremarkable. KIDNEYS AND URETERS: Bilateral Bosniak 1 renal cysts, no imaging follow-up recommended. GASTROINTESTINAL TRACT: Dense material layering within the gastric fundus may reflect ingested contents. Normal appendix. VASCULAR: Unremarkable. LYMPH NODES/PERITONEUM: Borderline enlarged portacaval node, present since 2020 and only slightly increased in size previously 0.9 cm possibly reactive in the setting of underlying liver disease. FREE FLUID: None. BLADDER: Urinary bladder is distended. Few foci of gas within the bladder lumen recommend correlation with any history of instrumentation. PELVIC VISCERA: Unremarkable. OSSEOUS STRUCTURES: Unremarkable. CT/CT abdomen pelvis wo IV con IMPRESSION: * Intermediate density material layering within the gallbladder, unclear if this could reflect noncalcified stones, sludge or gallbladder wall thickening, recommend correlation with nonemergent right upper quadrant ultrasound. There are no findings to suggest acute cholecystitis. * Urinary bladder is distended. Few foci of gas within the bladder lumen recommend correlation with any history of instrumentation. * Hepatic steatosis. Borderline enlarged portacaval node present since 2020 and only slightly increased in size may be reactive in setting of underlying liver disease.
--- NOTE | ~2022-11-12 | XR_ITS ---
EXAMINATION: XR CHEST CLINICAL INFORMATION: Reason for Exam sob COMPARISON: Chest radiograph 03/01/2022 TECHNIQUE: One view of the chest FINDINGS: Persistent elevation of the right hemidiaphragm. Few streaky left basilar opacities may reflect atelectasis. No pneumothorax or pleural effusion. Unchanged cardiomediastinal silhouette. XR/XR chest 1V IMPRESSION: 1. Few streaky left basilar opacities may reflect atelectasis. 2. Persistent elevation of the right hemidiaphragm.
--- NOTE | 2022-11-12 19:13 | ECG_ITS ---
Test Reason : CP Blood Pressure : / mmHG Vent. 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 rate has increased BY 70 BPM Referred By: Julieta Steve Electronically Signed By:Mike Lamas
--- NOTE | 2022-11-12 19:32 | ED_ITS ---
HPI - Chest Pain General Chief Complaint: Chest Pain Stated Complaint: chest pain Time Seen by Provider: 11/12/22 19:03 History of Present Illness HPI narrative: Patient is a 72-year-old male presented today with having fever. Patient had nonspecific chest pain. Decreased oxygen saturation. nausea earlier. No rash noted. Positive generalized malaise. History of congestive heart failure. History of CVA with residual right leg weakness. Patient from longterm Related Data Home Medications Medication Instructions Recorded Confirmed atorvastatin 40 mg tablet 1 tab PO DAILY 10/18/20 02/17/22 finasteride 5 mg tablet 1 tab PO DAILY 10/18/20 02/17/22 losartan 100 mg tablet 1 tab PO DAILY 10/18/20 02/17/22 tamsulosin 0.4 mg capsule 1 cap PO BEDTIME 10/18/20 02/17/22 amitriptyline 50 mg tablet 50 mg PO BEDTIME 02/17/22 02/17/22 cholecalciferol (vitamin D3) 50 50 mcg PO DAILY 02/17/22 02/17/22 mcg (2,000 unit) tablet gabapentin 100 mg capsule 200 mg PO BID 02/17/22 02/17/22 metoprolol succinate 100 mg 100 mg PO BID 02/17/22 02/17/22 tablet,extended release 24 hr paroxetine HCl 10 mg tablet 10 mg PO DAILY 02/17/22 02/17/22 potassium chloride 10 mEq 10 meq PO DAILY 02/17/22 02/17/22 tablet,extended release(part/cryst) sennosides 8.6 mg-docusate sodium 2 tab PO BEDTIME 02/17/22 02/17/22 50 mg tablet (Senna Plus) Previous Rx's Medication Instructions Recorded amlodipine 5 mg tablet 10 mg PO DAILY #30 tabs 10/31/20 famotidine 20 mg tablet 20 mg PO BEDTIME #30 tabs 10/31/20 furosemide 40 mg tablet 40 mg PO DAILY #30 tabs 10/31/20 polyethylene glycol 3350 17 gram 17 g PO DAILY #30 ea 10/31/20 oral powder packet (Miralax) amoxicillin 875 mg-potassium 1 tab PO Q12H #10 tabs 02/20/22 clavulanate 125 mg tablet doxycycline hyclate 100 mg capsule 100 mg PO BID #10 caps 02/20/22 prednisone 20 mg tablet 40 mg PO DAILY #10 tabs 02/20/22 Allergies Allergy/AdvReac Type Severity Reaction Status Date / Time No Known Allergies Allergy Verified 02/19/22 09:13 [No Known Allergies*] Review of Systems Review of Systems: Positive fever positive generalized malaise Yes all other systems are reviewed and are negative [facility] Past Medical History Attestation statement: The following information was validated with the patient. Medical History Abdomen enlarged Acute on chronic heart failure with preserved ejection fraction (HFpEF) Acute on chronic respiratory failure with hypoxia and hypercapnia Acute renal failure Acute respiratory failure with hypoxia Acute upper gastrointestinal bleeding Afib STIVEN (acute kidney injury) Altered mental status Aspiration pneumonitis Atypical pneumonia Borderline diabetic CHF exacerbation Congestive heart failure Hypertension Hyperthyroidism Hypoxia Ileus Multifocal pneumonia Myocardial infarct Partial obstruction of small intestine Pneumonia Pulmonary aspiration Sepsis associated hypotension Toxic metabolic encephalopathy Urinary catheter in place Urinary tract infection Social History Social History Household Members: None [facility] Do you presently have visiting nurse or other home services: No (private [facility]) Unable to assess alcohol history related to: Unknown Alcohol intake: former Patient Tobacco Use Status: Never used Tobacco Smoked in Last 30 Days: No Use of substances other than those prescribed or required for medical reasons: No Substance Use Type: Unknown Advance Directives: Yes Advance Directives on File: Yes Advance Directives Date on File: 11/01/20 service: No Current occupational status: retired Physical Exam Vital Signs: Vital Signs: Last Vital Signs Temp 98.2 F 11/13/22 00:07 Pulse 85 11/13/22 00:07 Resp 20 11/13/22 00:07 BP 97/56 L 11/13/22 00:07 Pulse Ox 92 11/13/22 00:07 O2 Del Method Nasal Cannula 11/13/22 00:07 O2 Flow Rate 3 11/13/22 00:07 Oxygen Flow Rate 2 11/12/22 19:02 BMI result Body Mass Index 29.5 Appearance: Alert. Oriented X3. No acute distress. Eyes: Pupils equal, round and reactive to light. ENT: Pharynx normal. Neck: Normal inspection. Neck supple. No lymph nodes noted. No crepitus CVS: Normal heart rate and rhythm. Pulses normal. Normal S1 and S2 Respiratory: No respiratory distress. Breath sounds normal. No Wheezing. No rales Abdomen: Soft and nontender. No rigidity. No distention. good BS x4 Skin: Skin warm and dry. Normal skin color. Normal skin turgor. Extremities: No lower extremity edema. Neurovascular intact to all extremities. No Lacerations. No Rash Neuro: Oriented X 3. No motor deficit. No sensory deficit. Positive weakness in the right lower extremity. Sensation intact. Pulses intact. Medications Administered Discontinued Medications Generic Name Dose Route Start Last Admin Trade Name Freq PRN Reason Stop Dose Admin Sodium Chloride 1,000 mls @ 999 mls/hr 11/12/22 19:30 11/12/22 21:40 Ns IV 11/12/22 20:30 Infused .Q1H1M RICA Infusion Sodium Chloride 2,721.54 mls @ 2,721.54 mls/hr 11/12/22 20:00 11/12/22 23:40 Ns 30 ml/kg infuse over 1 hr (2721.54 ml) 11/12/22 20:59 Infused IV Infusion .Q1H STA Cefepime HCl 1 gm/ Sodium 50 mls @ 100 mls/hr 11/12/22 20:03 11/12/22 21:15 Chloride IV 11/12/22 20:32 Infused ONCE ONE Infusion Sodium Chloride 1,000 mls @ 999 mls/hr 11/12/22 23:45 11/13/22 00:32 Ns IV 11/13/22 00:45 999 mls/hr .Q1H1M RICA Administration Ketorolac Tromethamine 15 mg 11/12/22 20:08 11/12/22 20:30 Ketorolac Tromethamine 15 Mg/Ml Vial IVPUSH 11/12/22 20:09 15 mg ONCE ONE Administration Lidocaine HCl 10 ml 11/12/22 20:46 11/12/22 20:56 Lidocaine Hcl 2 % Urojet 10 Ml Jel.Pf.Aamir TOPICAL 11/12/22 20:47 10 ml ONCE ONE Administration Lidocaine HCl 15 ml 11/12/22 20:56 11/12/22 21:20 Lidocaine Hcl Viscous 2 % 15 Ml Solution MUCOUS MEM 11/12/22 20:57 15 ml ONCE ONE Administration Medical Decision Making Medical Decision Making MDM Narrative: 20:00 patient had a high fever shortness of breath abdominal pain. Patient's BMP is normal. There is no evidence for congestive heart failure. Chest x-ray did not show any focal infiltrate. Patient's lactate is elevated. A sepsis alert was called. 30 cc/kilos IV fluid was ordered. A dose of cefepime was ord ered for empiric coverage. Patient's LFTs were significantly elevated. A CT scan of the abdomen pelvis was ordered. Patient's creatinine slightly elevated the CT scan will be done without IV contrast. Will monitor very carefully. Nursing was unable to obtain a urine. Will go ahead and try to put in a Witt myself. After fluid was infused patient's lactate dropped to approximately 2.3. We will continue to monitor. Unable to get a Witt placed. Patient has a large prostate. Both a small and a large coude was unable to pass. Will monitor patient's urine. Chest x-ray showed no focal infiltrate. Patient's LFTs are elevated. An ultrasound was done. It shows no evidence of cholecystitis. Positive gallstone noted. After all the boluses of fluid still unable to get urine output. Case was discussed with Dr. Melendrez. Monitor monitor patient for another hour. Patient does not have abdominal pain. Troponin was repeated the initial troponin was elevated at over 200 the 2nd troponin was approximately 900. However patient's heart rate has come down dramatically with IV fluid. My interpretation patient's 2nd EKG showed a sinus pattern heart rate is 80 RI QRS QT within normal limits there is no acute ST segment elevation noted. There is an incomplete right bundle branch block. Patient has no chest pain. Case was discussed with Cardiology. We will continue to monitor. Patient did have a bump up in troponin. Case was discussed with Cardiology. Recommended starting patient on Lovenox. Patient is still unable to provide urine. However patient has no abdominal pain whatsoever. Has a large prostate. Already had multiple attempts for Witt. Case discussed with Urology. They will put in a Witt in a.m.. Patient already empirically covered for infection. Hospitalist made aware the Penny plans. Patient being admitted. Differential Diagnosis Differential Diagnoses: The differential diagnosis associated with the presentation includes Pneumonia, urosepsis, dehydration, skin infection, biliary disease, urinary retention Admission/Observation Consideration of admission/observation: Escalation of care including admission/observation considered Consult Healthcare Provider Management of the patient was discussed with: Hospitalist and [employer] Cardiology, urology Lab Data MDM Lab Attestation statement: I reviewed the patient's lab results. 11/12/22 19:29 11/12/22 19:29 Labs: Lab Results 11/12/22 11/12/22 11/12/22 Range/Units 19:29 19:29 19:29 WBC 15.6 H (4.8-10.8) X10*3/uL RBC 4.24 L (4.60-5.80) X10*6/uL Hgb 11.5 L (14.0-18.0) g/dl Hct 36.0 L (42.0-52.0) % MCV 84.9 (80.0-98.0) fL MCH 27.1 (27.0-33.0) pg MCHC 31.9 (31.0-36.0) g/dl RDW 15.0 (11.0-16.0) % Plt Count 233 (160-400) X10*3/uL MPV 9.7 (9.4-12.4) fL Immature Gran % (Auto) 0.3 (0.0-0.4) % Neut % (Auto) 90.4 H (45-73) % Lymph % (Auto) 2.2 L (20-40) % [place] % (Auto) 6.6 (2-11) % Eos % (Auto) 0.2 (0-4) % Baso % (Auto) 0.3 (0-2) % Lymph # (Auto) 0.4 L (1.2-4.9) X10*3/uL [place] # (Auto) 1.0 (0.1-1.2) X10*3/uL Eos # (Auto) 0.0 (0.0-0.4) X10*3/uL Baso # (Auto) 0.0 (0.0-0.2) X10*3/uL Abs Immat Gran (auto) 0.05 H (0.00-0.03) X10*3/uL Absolute Neuts (auto) 14.1 H (2.0-8.3) x10*3/uL Absolute Nucleated RBC 0.000 (0.0-0.012) X10*3/uL Nucleated RBC % (auto) 0.0 (0.0-0.2) /100WBC Smear Tech's Comments VERIFIED Sodium 137 (135-145) mmol/L Potassium 4.4 (3.3-5.1) mmol/L Chloride 102 (96-108) mmol/L Carbon Dioxide 24 (22-29) mmol/L Anion Gap 15 (12-20) BUN 22 H (9-16) mg/dL Creatinine 1.49 H (0.5-1.4) mg/dL Estim Creat Clear Calc 49.1 Estimated GFR 46 Random Glucose 184 H (60-115) mg/dL Lactic Acid (0.5-2.0) mmol/L Lactic Acid F/U @ 2Hr (0.5-2.0) mmol/L Calcium 9.1 (8.4-10.2) mg/dL Magnesium 1.8 (1.6-2.6) mg/dL Total Bilirubin 4.5 H (0.0-1.0) mg/dL AST 569 H (5-37) U/L ALT 595 H (0-40) U/L Alkaline Phosphatase 236 H (39-117) U/L Troponin I High Sens 244.4 H* (<3.5-35.0) ng/L B-Natriuretic Peptide (<100) pg/mL Total Protein 6.2 L (6.5-8.0) g/dL Albumin 3.8 (3.5-5.0) g/dL Influenza Type A (PCR) (Negative) Influenza Type B (PCR) (Negative) RSV RNA Qual (PCR) (Negative) SARS-CoV-2 RNA (RT-PCR) (Negative) 11/12/22 11/12/22 11/12/22 Range/Units 19:29 19:29 19:34 WBC (4.8-10.8) X10*3/uL RBC (4.60-5.80) X10*6/uL Hgb (14.0-18.0) g/dl Hct (42.0-52.0) % MCV (80.0-98.0) fL MCH (27.0-33.0) pg MCHC (31.0-36.0) g/dl RDW (11.0-16.0) % Plt Count (160-400) X10*3/uL MPV (9.4-12.4) fL Immature Gran % (Auto) (0.0-0.4) % Neut % (Auto) (45-73) % Lymph % (Auto) (20-40) % [place] % (Auto) (2-11) % Eos % (Auto) (0-4) % Baso % (Auto) (0-2) % Lymph # (Auto) (1.2-4.9) X10*3/uL [place] # (Auto) (0.1-1.2) X10*3/uL Eos # (Auto) (0.0-0.4) X10*3/uL Baso # (Auto) (0.0-0.2) X10*3/uL Abs Immat Gran (auto) (0.00-0.03) X10*3/uL Absolute Neuts (auto) (2.0-8.3) x10*3/uL Absolute Nucleated RBC (0.0-0.012) X10*3/uL Nucleated RBC % (auto) (0.0-0.2) /100WBC Smear Tech's Comments Sodium (135-145) mmol/L Potassium (3.3-5.1) mmol/L Chloride (96-108) mmol/L Carbon Dioxide (22-29) mmol/L Anion Gap (12-20) BUN (9-16) mg/dL Creatinine (0.5-1.4) mg/dL Estim Creat Clear Calc Estimated GFR Random Glucose (60-115) mg/dL Lactic Acid 3.4 H* (0.5-2.0) mmol/L Lactic Acid F/U @ 2Hr (0.5-2.0) mmol/L Calcium (8.4-10.2) mg/dL Magnesium (1.6-2.6) mg/dL Total Bilirubin (0.0-1.0) mg/dL AST (5-37) U/L ALT (0-40) U/L Alkaline Phosphatase (39-117) U/L Troponin I High Sens (<3.5-35.0) ng/L B-Natriuretic Peptide 34 (<100) pg/mL Total Protein (6.5-8.0) g/dL Albumin (3.5-5.0) g/dL Influenza Type A (PCR) NEGATIVE (Negative) Influenza Type B (PCR) NEGATIVE (Negative) RSV RNA Qual (PCR) NEGATIVE (Negative) SARS-CoV-2 RNA (RT-PCR) NEGATIVE (Negative) 11/12/22 11/12/22 Range/Units 22:17 23:28 WBC (4.8-10.8) X10*3/uL RBC (4.60-5.80) X10*6/uL Hgb (14.0-18.0) g/dl Hct (42.0-52.0) % MCV (80.0-98.0) fL MCH (27.0-33.0) pg MCHC (31.0-36.0) g/dl RDW (11.0-16.0) % Plt Count (160-400) X10*3/uL MPV (9.4-12.4) fL Immature Gran % (Auto) (0.0-0.4) % Neut % (Auto) (45-73) % Lymph % (Auto) (20-40) % [place] % (Auto) (2-11) % Eos % (Auto) (0-4) % Baso % (Auto) (0-2) % Lymph # (Auto) (1.2-4.9) X10*3/uL [place] # (Auto) (0.1-1.2) X10*3/uL Eos # (Auto) (0.0-0.4) X10*3/uL Baso # (Auto) (0.0-0.2) X10*3/uL Abs Immat Gran (auto) (0.00-0.03) X10*3/uL Absolute Neuts (auto) (2.0-8.3) x10*3/uL Absolute Nucleated RBC (0.0-0.012) X10*3/uL Nucleated RBC % (auto) (0.0-0.2) /100WBC Smear Tech's Comments Sodium (135-145) mmol/L Potassium (3.3-5.1) mmol/L Chloride (96-108) mmol/L Carbon Dioxide (22-29) mmol/L Anion Gap (12-20) BUN (9-16) mg/dL Creatinine (0.5-1.4) mg/dL Estim Creat Clear Calc Estimated GFR Random Glucose (60-115) mg/dL Lactic Acid (0.5-2.0) mmol/L Lactic Acid F/U @ 2Hr 2.3 H* (0.5-2.0) mmol/L Calcium (8.4-10.2) mg/dL Magnesium (1.6-2.6) mg/dL Total Bilirubin (0.0-1.0) mg/dL AST (5-37) U/L ALT (0-40) U/L Alkaline Phosphatase (39-117) U/L Troponin I High Sens 936.2 H* D (<3.5-35.0) ng/L B-Natriuretic Peptide (<100) pg/mL Total Protein (6.5-8.0) g/dL Albumin (3.5-5.0) g/dL Influenza Type A (PCR) (Negative) Influenza Type B (PCR) (Negative) RSV RNA Qual (PCR) (Negative) SARS-CoV-2 RNA (RT-PCR) (Negative) Independent Interpretation I performed an independent interpretation of an: EKG and Plain X-Ray Interpretation: Initial EKG showed a sinus pattern heart rate was 130 there is a partial right bundle branch block there is no acute ST segment elevation. Patient's initial chest x-ray showed no focal infiltrate. Patient's 2nd EKG showed a heart rate of 90 RI QRS QT within normal limits there is a partial right bundle-branch block there is no acute ST segment elevation. Radiology Impression Discussion of test interpretation with radiology: I have reviewed the radiologist's reading. External Record Review External record reviewed: Inpatient record Critical Care Time Critical Care Time Critical Care Time: Yes Total Critical Care Time: 40 Attestation: I have personally provided 40 minutes of critical care time exclusive of time spent on separately billable procedures. Time includes review of lab data, radiology results, discussion with consultants, and monitoring for potential decompensation. Interventions were performed as documented above Discharge Plan Discharge Clinical Impression: Urinary tract infection, Fever, Non-ST elevation AR (NSTEMI) Patient Disposition: Admitted As Inpatient Prescriptions: No Action atorvastatin 40 mg tablet 1 tab PO DAILY tamsulosin 0.4 mg capsule 1 cap PO BEDTIME losartan 100 mg tablet 1 tab PO DAILY finasteride 5 mg tablet 1 tab PO DAILY furosemide 40 mg Tablet 40 mg PO DAILY Qty: 30 0RF Protocol: Hold for SBP< HOLD for SBP < : 90 amlodipine 5 mg Tablet 10 mg PO DAILY Qty: 30 0RF Protocol: Hold for SBP< HOLD for SBP < : 90 famotidine 20 mg Tablet 20 mg PO BEDTIME Qty: 30 0RF polyethylene glycol 3350 [Miralax] 17 gram powder in packet 17 g PO DAILY Qty: 30 0RF paroxetine HCl 10 mg Tablet 10 mg PO DAILY metoprolol succinate 100 mg Tablet Extended Release 24 Hr 100 mg PO BID amitriptyline 50 mg Tablet 50 mg PO BEDTIME gabapentin 100 mg Capsule 200 mg PO BID potassium chloride 10 mEq Tablet,Er Particles/Crystals 10 meq PO DAILY cholecalciferol (vitamin D3) 50 mcg (2,000 unit) Tablet 50 mcg PO DAILY sennosides-docusate sodium [Senna Plus] 8.6-50 mg tablet 2 tab PO BEDTIME amoxicillin-pot clavulanate 875-125 mg tablet 1 tab PO Q12H Qty: 10 0RF doxycycline hyclate 100 mg capsule 100 mg PO BID Qty: 10 0RF prednisone 20 mg tablet 40 mg PO DAILY Qty: 10 0RF
[2022-11-12] MEDS: 0.9 % Sodium Chloride 1,000 ML 999 ML IV (19:37)
[2022-11-12 19:41] LABS: Basophils Percent Auto 0.3 % (0-2); Eosinophils Percent Auto 0.2 % (0-4); Hemoglobin 11.5 g/dl (14.0-18.0); Imm Gran Abs Auto 0.05 X10*3/uL (0.00-0.03); Imm Gran Pct Auto 0.3 % (0.0-0.4); Lymphocytes Absolute Auto 0.4 X10*3/uL (1.2-4.9); Lymphocytes Percent Auto 2.2 % (20-40); MANUAL DIFF FLAG SCAN; Mean Corpuscular HGB Conc 31.9 g/dl (31.0-36.0); Mean Corpuscular Hemoglobin 27.1 pg (27.0-33.0); Mean Corpuscular Volume 84.9 fL (80.0-98.0); Mean Platelet Volume 9.7 fL (9.4-12.4); Monocytes Percent Auto 6.6 % (2-11); Neutrophils Absolute Auto 14.1 x10*3/uL (2.0-8.3); Neutrophils Percent Auto 90.4 % (45-73); Platelet Count 233 X10*3/uL (160-400); Red Blood Count 4.24 X10*6/uL (4.60-5.80); SCAN SMEAR FLAG 1; White Blood Count 15.6 X10*3/uL (4.8-10.8)
[2022-11-12 19:58] LABS: SLIDE REVIEW VERIFIED
[2022-11-12 20:00] LABS: Alanine Aminotransferase 595 U/L (0-40); Albumin Level 3.8 g/dL (3.5-5.0); Alkaline Phosphatase 236 U/L (39-117); Anion Gap 15 (12-20); Aspartate Amino Transferase 569 U/L (5-37); Bilirubin Total 4.5 mg/dL (0.0-1.0); Blood Urea Nitrogen 22 mg/dL (9-16); Calcium 9.1 mg/dL (8.4-10.2); Carbon Dioxide 24 mmol/L (22-29); Chloride 102 mmol/L (96-108); Creatinine Clr Calc Pharmacy 49.1; Estimated Glomerular Filt Rate 46; Glucose Random 184 mg/dL (60-115); Lactic Acid 3.4 mmol/L (0.5-2.0); Magnesium 1.8 mg/dL (1.6-2.6); Potassium 4.4 mmol/L (3.3-5.1); Sodium 137 mmol/L (135-145); Total Protein 6.2 g/dL (6.5-8.0)
[2022-11-12 20:05] LABS: B Type Natriuretic Peptide 34 pg/mL (<100)
[2022-11-12 20:21] LABS: Influenza A PCR NEGATIVE (Negative); Influenza B PCR NEGATIVE (Negative); Resp Syncy Virus RNA Qual PCR NEGATIVE (Negative); SARS COV2 PCR INHOUSE NEGATIVE (Negative)
[2022-11-12 20:25] LABS: Troponin-I High Sensitivity 244.4 ng/L (<3.5-35.0)
[2022-11-12] MEDS: cefEPime HCl 1 GM in 0.9 % Sodium Chloride 50 ML IV (20:30)
[2022-11-12] MEDS: Ketorolac Tromethamine 15 MG/ML VIAL IVPUSH (20:30)
[2022-11-12] MEDS: 0.9 % Sodium Chloride 2,721.54 ML 2721.54 ML IV (20:30)
[2022-11-12] MEDS: Lidocaine HCl 2 % Urojet 10 ML JEL.PF.APP TOPICAL (20:56)
--- NOTE | 2022-11-12 21:15 | PC.NURSE ---
This RN attempted to insert F/C with no success. Dr. Steve notified. Provider attempted to insert F/C x2 using coude catheter-provider unable to insert catheter d/t catheter coiling during insertion. This RN applied [place] catheter to obtain urine specimen and preserve skin integrity-patient reports he is incontinent of urine.
[2022-11-12] MEDS: Lidocaine HCl Viscous 2 % 15 ML SOLUTION MUCOUS MEM (21:20)
--- NOTE | 2022-11-12 21:21 | PC.NURSE ---
Patient taken to CT scan.
[2022-11-12 21:34] LABS: Reflex Lactate? Lactic Acid Added
[2022-11-12 22:41] LABS: ~Lactic Acid-LAB USE ONLY 2.3 mmol/L (0.5-2.0)
[2022-11-12 23:56] LABS: Troponin-I High Sensitivity 936.2 ng/L (<3.5-35.0)
--- NOTE | 2022-11-12 23:58 | ECG_ITS ---
Test Reason : CHEST PAIN Blood Pressure : / mmHG Vent. Rate : 087 BPM Atrial Rate : 087 BPM P-R Int : 178 ms QRS Dur : 110 ms QT Int : 378 ms P-R-T Axes : 062 -01 037 degrees QTc Int : 454 ms Normal sinus rhythm Incomplete right bundle branch block Inferior infarct (cited on or before 17-MAY-2018) Abnormal ECG When compared with ECG of 12-NOV-2022 19:24, Vent. rate has decreased BY 44 BPM Referred By: Julieta Steve Electronically Signed By:Mike Lamas
[2022-11-13 00:07] VITALS: BP 97/56; PULSE 85; RESP 20; TEMP 36.8; O2SAT 92
[2022-11-13 00:23] LABS: Reflex Lactate? 2 Y
[2022-11-13] MEDS: 0.9 % Sodium Chloride 1,000 ML 999 ML IV (00:32)
[2022-11-13 01:09] LABS: ~Lactic Acid-LAB USE ONLY 2.1 mmol/L (0.5-2.0)
--- NOTE | 2022-11-13 01:52 | PM.IMHP ---
History of Present Illness Date of Service: 11/13/22 Chief Complaint: chest pain this is a 72-year-old male with past medical history of chronic heart failure with Preserved ejection fraction, COPD O2 dependent, type 2 diabetes, urinary retention, depression, history of AFib, HTN, hypothyroidism, CAD, history of dysphagia, presents to the hospital with complaints of not feeling well. Patient reports that he had lunch and shortly after felt ill. He states that he then developed chest pain, he describes the chest pain on left side, heavy, nonradiating, constant, a out of 10, lasting several hours and resolving by the time he got to the ED. he is also feeling is that his belly is bloated, although denies any abdominal pain, he states having nausea with no vomiting, no diarrhea or constipation, the bloating started yesterday. he is complaining of urinary retention, as well as dysuria for several days. He states that he does [employer] well for quite a while. Otherwise he denies any headache, no change in vision, no palpitations, no shortness of breath, no lower extremity edema. On arrival to the ED vitals are significant for temp of 101.5 degrees, heart rate of 134, satting 90% on 2 L of oxygen Labs are significant for WBC count of 15.6, hemoglobin of 11.5, hematocrit 36, creatinine of 1.49 with a baseline of 1.4, lactic acid of 3.4 improved with IV fluids, total bili of 4.5, AST of 569, ALT of 595, alk-phos of 236, troponin of 244 increasedTo 936, BNP of 34, UA pending collection, several trials of catheter insertion were attempted by ED physician with no success, urology was consulted with plan for catheter insertion in a.m. Abdominal CT is showing intermediate density material layering within the gallbladder unclear specificity, CT also showed urinary bladder distension, few foci of gas within the bladder lumen recommending correlation with any history of instrumentation, ultrasound of the abdomen showed cholelithiasis, gallbladder sludge and mild wall thickening which is nonspecific Review of Systems Review of Systems: Yes all other systems are reviewed and are negative [facility] Medical History Abdomen enlarged Acute on chronic heart failure with preserved ejection fraction (HFpEF) Acute on chronic respiratory failure with hypoxia and hypercapnia Acute renal failure Acute respiratory failure with hypoxia Acute upper gastrointestinal bleeding Afib STIVEN (acute kidney injury) Altered mental status Aspiration pneumonitis Atypical pneumonia Borderline diabetic CHF exacerbation Congestive heart failure Hypertension Hyperthyroidism Hypoxia Ileus Multifocal pneumonia Myocardial infarct Partial obstruction of small intestine Pneumonia Pulmonary aspiration Sepsis associated hypotension Toxic metabolic encephalopathy Urinary catheter in place Urinary tract infection Social History Household Members: None Housing: Long Term Do you presently have visiting nurse or other home services: No (private RN FLOAT) Unable to assess alcohol history related to: Unknown Alcohol intake: former Patient Tobacco Use Status: Never used Tobacco Smoked in Last 30 Days: No Use of substances other than those prescribed or required for medical reasons: No Substance Use Type: Unknown Currently Displaying Signs/Symptoms of Drug Intoxication Withdrawal: No Any prior treatment program specific to substance use: No Have you been hit, kicked, punched, or otherwise hurt by someone within the past year? If so, by whom?: No Do you feel safe in your current relationship?: Yes Is there a partner from a previous relationship who is making you feel unsafe now?: No Are you made to feel afraid or neglected: No Advance Directives: Yes Advance Directives on File: Yes Advance Directives Date on File: 11/01/20 Do you have thoughts of harming others: None Do you have a plan to hurt others: No Plan Recently lost weight without trying: No How much weight loss: Not applicable Eating poorly because of decreased appetite: No Nutrition screen score: 0 Nutrition Risks: No Nutritional Risk Poor oral hygiene: No service: No Current occupational status: retired Meds Allergies Allergy/AdvReac Type Severity Reaction Status Date / Time No Known Allergies Allergy Verified 11/13/22 05:12 [No Known Allergies*] Home Medications Medication Instructions Recorded Confirmed Last Taken Type atorvastatin 40 mg tablet 1 tab PO DAILY 10/18/20 11/13/22 Unknown History finasteride 5 mg tablet 1 tab PO DAILY 10/18/20 11/13/22 Unknown History losartan 100 mg tablet 1 tab PO DAILY 10/18/20 11/13/22 Unknown History tamsulosin 0.4 mg capsule 1 cap PO BEDTIME 10/18/20 11/13/22 Unknown History cholecalciferol (vitamin D3) 50 50 mcg PO DAILY 02/17/22 11/13/22 Unknown History mcg (2,000 unit) tablet gabapentin 100 mg capsule 200 mg PO BID 02/17/22 11/13/22 Unknown History paroxetine HCl 10 mg tablet 10 mg PO DAILY 02/17/22 11/13/22 Unknown History potassium chloride 10 mEq 10 meq PO DAILY 02/17/22 11/13/22 Unknown History tablet,extended release(part/cryst) sennosides 8.6 mg-docusate sodium 2 tab PO BEDTIME 02/17/22 11/13/22 Unknown History 50 mg tablet (Senna Plus) diazepam 5 mg tablet 5 mg PO TID 11/13/22 11/13/22 Unknown History phenazopyridine 200 mg tablet 200 mg TID 11/13/22 11/13/22 Unknown History (Pyridium) Physical Exam Vital Signs and Narrative: Vital Signs: Last Vital Signs Temp 98.2 F 11/13/22 00:07 Pulse 85 11/13/22 00:07 Resp 20 11/13/22 00:07 BP 97/56 L 11/13/22 00:07 Pulse Ox 92 11/13/22 00:07 O2 Del Method Nasal Cannula 11/13/22 00:07 O2 Flow Rate 3 11/13/22 00:07 Oxygen Flow Rate 2 11/12/22 19:02 BMI result Body Mass Index 29.5 Const: General: cooperative and no acute distress Orientation/consciousness: patient oriented x3 Eyes: General: appearance normal, both eyes and all related structures Resp: Effort & Inspection: normal respiratory effort Auscultation: clear to auscultation bilaterally Cardio: Rate: regular rate Rhythm: regular rhythm GI: Other: abdomen is distended, nontender, no rebound, Chicas sign negative Palpation (GI): Soft to palpation Auscultation: normal bowel sounds Skin: Other: jaundiced General skin exam: no rashes or lesions noted Neuro: General: patient oriented x3 Cognition (Neuro): normal cognition Extrem: General: Yes normal to inspection and Yes no pedal edema Results Labs 11/12/22 19:29 11/12/22 19:29 Labs: Laboratory Results - last 24 hr 11/12/22 11/12/22 11/12/22 19:29 19:29 19:29 MCV 84.9 MCH 27.1 MCHC 31.9 RDW 15.0 Plt Count 233 MPV 9.7 Immature Gran % (Auto) 0.3 Neut % (Auto) 90.4 H Lymph % (Auto) 2.2 L Canadian % (Auto) 6.6 Eos % (Auto) 0.2 Baso % (Auto) 0.3 Lymph # (Auto) 0.4 L Canadian # (Auto) 1.0 Eos # (Auto) 0.0 Baso # (Auto) 0.0 Abs Immat Gran (auto) 0.05 H Absolute Neuts (auto) 14.1 H Absolute Nucleated RBC 0.000 Nucleated RBC % (auto) 0.0 Smear Tech's Comments VERIFIED Anion Gap 15 Estim Creat Clear Calc 49.1 Estimated GFR 46 Random Glucose 184 H Lactic Acid Lactic Acid F/U @ 2Hr Lactic Acid F/U @ 4Hr Calcium 9.1 Magnesium 1.8 Total Bilirubin 4.5 H AST 569 H ALT 595 H Alkaline Phosphatase 236 H Troponin I High Sens 244.4 H* B-Natriuretic Peptide Total Protein 6.2 L Albumin 3.8 Influenza Type A (PCR) Influenza Type B (PCR) RSV RNA Qual (PCR) SARS-CoV-2 RNA (RT-PCR) 11/12/22 11/12/22 11/12/22 19:29 19:29 19:34 MCV MCH MCHC RDW Plt Count MPV Immature Gran % (Auto) Neut % (Auto) Lymph % (Auto) Canadian % (Auto) Eos % (Auto) Baso % (Auto) Lymph # (Auto) Canadian # (Auto) Eos # (Auto) Baso # (Auto) Abs Immat Gran (auto) Absolute Neuts (auto) Absolute Nucleated RBC Nucleated RBC % (auto) Smear Tech's Comments Anion Gap Estim Creat Clear Calc Estimated GFR Random Glucose Lactic Acid 3.4 H* Lactic Acid F/U @ 2Hr Lactic Acid F/U @ 4Hr Calcium Magnesium Total Bilirubin AST ALT Alkaline Phosphatase Troponin I High Sens B-Natriuretic Peptide 34 Total Protein Albumin Influenza Type A (PCR) NEGATIVE Influenza Type B (PCR) NEGATIVE RSV RNA Qual (PCR) NEGATIVE SARS-CoV-2 RNA (RT-PCR) NEGATIVE 11/12/22 11/12/22 11/13/22 22:17 23:28 00:41 MCV MCH MCHC RDW Plt Count MPV Immature Gran % (Auto) Neut % (Auto) Lymph % (Auto) Canadian % (Auto) Eos % (Auto) Baso % (Auto) Lymph # (Auto) Canadian # (Auto) Eos # (Auto) Baso # (Auto) Abs Immat Gran (auto) Absolute Neuts (auto) Absolute Nucleated RBC Nucleated RBC % (auto) Smear Tech's Comments Anion Gap Estim Creat Clear Calc Estimated GFR Random Glucose Lactic Acid Lactic Acid F/U @ 2Hr 2.3 H* Lactic Acid F/U @ 4Hr 2.1 H* Calcium Magnesium Total Bilirubin AST ALT Alkaline Phosphatase Troponin I High Sens 936.2 H* D B-Natriuretic Peptide Total Protein Albumin Influenza Type A (PCR) Influenza Type B (PCR) RSV RNA Qual (PCR) SARS-CoV-2 RNA (RT-PCR) Imaging Radiologist's Impressions: Impressions Chest X-Ray 11/12/22 20:34 IMPRESSION: 1. Few streaky left basilar opacities may reflect atelectasis. 2. Persistent elevation of the right hemidiaphragm. Abdomen/Pelvis CT 11/12/22 21:36 IMPRESSION: * Intermediate density material layering within the gallbladder, unclear if this could reflect noncalcified stones, sludge or gallbladder wall thickening, recommend correlation with nonemergent right upper quadrant ultrasound. There are no findings to suggest acute cholecystitis. * Urinary bladder is distended. Few foci of gas within the bladder lumen recommend correlation with any history of instrumentation. * Hepatic steatosis. Borderline enlarged portacaval node present since 2020 and only slightly increased in size may be reactive in setting of underlying liver disease. Abdomen Ultrasound 11/13/22 00:34 IMPRESSION: * Cholelithiasis and gallbladder sludge. There is mild gallbladder wall thickening, which is nonspecific. No pericholecystic fluid or sonographic Chicas sign to suggest cholecystitis. * Hepatic steatosis. Assessment and Plan (1) Sepsis: Status: Acute (2) Non-ST elevation [place] (NSTEMI): Status: Acute (3) Transaminitis: Status: Acute (4) Gallbladder sludge: Status: Acute (5) Urinary retention: Status: Acute Plan 72-year-old male with past medical history of diabetes, CHF with preserved ejection fraction, history of CAD who presents to the hospital with complaints of feeling unwell, as well as chest pain found to have multiple complications # sepsis - unclear source at this time, likely urinary track infection, versus acute cholecystitis - unable to get urine sample due to urinary retention, seems to have history of BPH? - Likely obstructive uropathy - CT of the abdomen showing abnormal gallbladder, ultrasound of the abdomen showing gallbladder sludge - at this time will treat with IV antibiotics - follow cultures - pending urine # NSTEMI - with complaints of chest pain, EKG shows incomplete right bundle-branch block with no significant ST T wave changes suggestive of ACS, - has significant change in troponin - case was discussed with Cardiology by ED physician, recommended patient to be started on Lovenox - will obtain echocardiogram - cardiology consulted # transaminitis - possibly secondary to acute cholecystitis versus sepsis - cholestatic pattern - will obtain hepatitis panel, Tylenol level, as well as salicylate levels - GI consulted - follow liver panel - IV fluids # gallbladder sludge - possibly secondary to acute cholecystitis - general surgery consulted - prophylactic antibiotics started - follow cultures # urinary retention - secondary to BPH/ obstruction - several attempts were made by ED physician for catheter placement which were unsuccessful - continue tamsulosin and finasteride - urology consulted # history of COPD - not in exacerbation - monitor respiratory status # history of CHF - not in exacerbation - continue furosemide # hypertension - stable - hold off on antihypertensives in the setting of sepsis # diabetes - low-dose sliding scale insulin - diabetic diet DVT prophylaxis: Lovenox given patient's need for IV antibiotics patient will require 2 nights inpatient hospital stay for further management and monitoring Time Spent With Patient Time: Total time managing care of this patient today ____ minutes. Quality Stroke Does the patient have a stroke diagnosis?: No VTE Prior VTE?: No VTE Risk Level:: Medical - moderate - high VTE Device Contraindication: Treatment Not Indicated VTE Drug Contraindication: N/A - Med Ordered
[2022-11-13 01:56] VITALS: BP 102/50; PULSE 79; RESP 18; TEMP 36.6; O2SAT 95
[2022-11-13] MEDS: Enoxaparin Sodium 100 MG/ML SYRINGE 90 MG SUBCUT ×2 (01:58→13:29)
[2022-11-13 02:07] LABS: Hematocrit 29.6 % (42.0-52.0); Hemoglobin 9.5 g/dl (14.0-18.0); Mean Corpuscular HGB Conc 32.1 g/dl (31.0-36.0); Mean Corpuscular Hemoglobin 27.7 pg (27.0-33.0); Mean Corpuscular Volume 86.3 fL (80.0-98.0); Mean Platelet Volume 9.5 fL (9.4-12.4); Platelet Count 209 X10*3/uL (160-400); Red Blood Count 3.43 X10*6/uL (4.60-5.80); Red Cell Distribution Width 15.4 % (11.0-16.0); White Blood Count 18.4 X10*3/uL (4.8-10.8)
[2022-11-13 02:14] LABS: INTERNATIONAL NORM RATIO 1.2 (0.9-1.1); Prothrombin Time 13.7 SEC (10.0-13.1)
[2022-11-13 02:16] LABS: Partial Thromboplastin Time 29.2 SEC (26.0-36.4)
[2022-11-13] MEDS: Lactated Ringers 500 ML 20 ML IVCONT (02:17)
[2022-11-13] MEDS: Piperacillin Sodium/Tazobactam 3.375 GM in 0.9 % Sodium Chloride 50 ML IV ×2 (02:21→11:47)
[2022-11-13 02:31] LABS: Alanine Aminotransferase 447 U/L (0-40); Alkaline Phosphatase 180 U/L (39-117); Anion Gap 14 (12-20); Aspartate Amino Transferase 304 U/L (5-37); Bilirubin Total 3.7 mg/dL (0.0-1.0); Blood Urea Nitrogen 21 mg/dL (9-16); Calcium 7.9 mg/dL (8.4-10.2); Carbon Dioxide 22 mmol/L (22-29); Chloride 108 mmol/L (96-108); Creatinine Clr Calc Pharmacy 52.3; Estimated Glomerular Filt Rate 50; Glucose Random 151 mg/dL (60-115); Potassium 4.4 mmol/L (3.3-5.1); Salicylate < 5.0 mg/dL (15-30); Sodium 140 mmol/L (135-145)
[2022-11-13 02:50] LABS: Acetaminophen LAB < 17 mcg/mL (<30)
--- NOTE | 2022-11-13 04:28 | PC.NURSE ---
Nurse to nurse report called to ingrid swan, spoke to PEDRO Padgett. Patient to be transported to [facility] surg floor room 360 by stage technician.
[2022-11-13 04:45] VITALS: BMI 31.6
[2022-11-13 04:51] VITALS: BP 141/60; PULSE 83; RESP 18; TEMP 36.2; O2SAT 91
[2022-11-13 06:17] LABS: MANUAL DIFF FLAG NO
--- NOTE | 2022-11-13 06:17 | PC.NURSE ---
bladder scanned for 610ml. Dr. Mobley notified. advised to wait for the Urology consult this morning.
--- NOTE | 2022-11-13 06:19 | PHA.PROG ---
Admission Date/Time: November 13, 2022 01:49 Indication: SEPSIS Weight in k.1 kg Adjusted body weight in K.3 [place] body weight in K.7 Obesity Dosing Indication % IBW:OBESE Serum Creatinine - Last 168 Hours 11/12/22 11/13/22 19:29 02:03 Creatinine 1.49 H 1.40 Estimated CrCl and GFR - Last 168 Hours 11/12/22 11/13/22 19:29 02:03 Estim Creat Clear Calc 49.1 52.3 Estimated GFR 46 50 Vancomycin Loading Dose: Patient received 2000 mg Current Vancomycin Dosing Regimen: 1000 mg Q24H Vancomycin Monitoring using AUC goal of 400 - 600 range with trough as surrogate marker: 485 mg/l/hr Date and Time for next Vancomycin Level to be drawn: 11/15 @1300 Pharmacist Comments on Vancomycin Plan: Patients indication is sepsis, therefore renal function is likely to decline. RX insight on obese model. Will start with 1000 mg Q24H as patient is also above 65 years old and needs time to clear. Will access renal function daily. Next level draw is after 2 doses of 1000 mg Vancomycin dosing will take advantage of [employer] as a clinical decision support tool that uses Bayesian modeling to calculate individual patient's pharmacokinetic parameters and forecast the patient's drug concentration time course with the target goal AUC 24 range of 400 - 600 mg/L/hr.
[2022-11-13 06:22] LABS: Basophils Absolute Auto 0.1 X10*3/uL (0.0-0.2); Basophils Percent Auto 0.3 % (0-2); Eosinophils Absolute Auto 0.1 X10*3/uL (0.0-0.4); Eosinophils Percent Auto 0.3 % (0-4); Hematocrit 34.6 % (42.0-52.0); Hemoglobin 10.6 g/dl (14.0-18.0); Imm Gran Abs Auto 0.09 X10*3/uL (0.00-0.03); Imm Gran Pct Auto 0.5 % (0.0-0.4); Lymphocytes Absolute Auto 1.4 X10*3/uL (1.2-4.9); Mean Corpuscular HGB Conc 30.6 g/dl (31.0-36.0); Mean Corpuscular Hemoglobin 27.2 pg (27.0-33.0); Mean Corpuscular Volume 88.9 fL (80.0-98.0); Mean Platelet Volume 9.9 fL (9.4-12.4); Monocytes Absolute Auto 0.9 X10*3/uL (0.1-1.2); Monocytes Percent Auto 5.3 % (2-11); Neutrophils Absolute Auto 15.3 x10*3/uL (2.0-8.3); Neutrophils Percent Auto 85.6 % (45-73); Platelet Count 217 X10*3/uL (160-400); Red Blood Count 3.89 X10*6/uL (4.60-5.80); Red Cell Distribution Width 15.5 % (11.0-16.0); White Blood Count 17.9 X10*3/uL (4.8-10.8)
--- NOTE | 2022-11-13 06:43 | PM.UROCN ---
History of Present Illness Consult details Consult date: 11/13/22 Narrative: 72-year-old male with past medical history of chronic heart failure with Preserved ejection fraction,? COPD O2 dependent, type 2 diabetes, urinary retention, depression, history of AFib, HTN, hypothyroidism, CAD, history of dysphagia, presents to the hospital with complaints of not feeling well.? Per ED record, patient states that he then developed chest pain, he describes the chest pain on left side, heavy, nonradiating, constant, a out of 10, lasting several hours and resolving by the time he got to the ED. he is also feeling is that his belly is bloated, although denies any abdominal pain, he states having nausea with no vomiting, no diarrhea or constipation, the bloating started yesterday. ?He is complaining of urinary retention, as well as dysuria for several days.? ? He states he has had a catheter placed in the past, and has had previous UTI's. ED--Labs are significant for WBC count of 15.6, hemoglobin of 11.5, hematocrit 36, creatinine of 1.49 with a baseline of 1.4, lactic acid of 3.4 improved with IV fluids. Urology contacted for urinary retention, unable to place catheter. Per Nursing bladder scan about 600 mL, pt voided about 100 mL and is incontinent and wetting pad. Abdominal CT is showing urinary bladder distension, few foci of gas within the bladder lumen recommending correlation with any history of instrumentation. Review of Systems Review of Systems: ROS negative other than stated in HPI PMFSH Past Medical History Medical History Abdomen enlarged Acute on chronic heart failure with preserved ejection fraction (HFpEF) Acute on chronic respiratory failure with hypoxia and hypercapnia Acute renal failure Acute respiratory failure with hypoxia Acute upper gastrointestinal bleeding Afib STIVEN (acute kidney injury) Altered mental status Aspiration pneumonitis Atypical pneumonia Borderline diabetic CHF exacerbation Congestive heart failure Hypertension Hyperthyroidism Hypoxia Ileus Multifocal pneumonia Myocardial infarct Partial obstruction of small intestine Pneumonia Pulmonary aspiration Sepsis associated hypotension Toxic metabolic encephalopathy Urinary catheter in place Urinary tract infection Social History Social History Household Members: None Housing: [facility] Do you presently have visiting nurse or 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 If so, by whom?: No Do you feel safe in your current relationship?: Yes Is there a partner from a previous relationship who is making you feel unsafe now?: No Are you made to feel afraid or neglected: No Advance Directives: Yes Advance Directives on File: Yes Advance Directives Date on File: 11/01/20 Do you have thoughts of harming others: None Do you have a plan to hurt others: No Plan Recently lost weight without trying: No How much weight loss: Not applicable Eating poorly because of decreased appetite: No Nutrition screen score: 0 Nutrition Risks: No Nutritional Risk Poor oral hygiene: No service: No Current occupational status: retired [employer] Allergies Allergy/AdvReac Type Severity Reaction Status Date / Time No Known Allergies Allergy Verified 11/13/22 05:12 [No Known Allergies*] Active Medications: Current Medications Amlodipine Besylate (Amlodipine Besylate 10 Mg Tablet) 10 mg PO DAILY RICA; Protocol Atorvastatin Calcium (Atorvastatin Calcium 40 Mg Tablet) 40 mg PO DAILY [facility] Docusate Sodium (Docusate Sodium 100 Mg Capsule) 100 mg PO DAILY PRN PRN Reason: Constipation Enoxaparin Sodium (Enoxaparin Sodium 100 Mg/Ml Syringe) 90 mg 1 mg/kg (90 mg) SUBCUT Q12H [facility] Famotidine (Famotidine 20 Mg Tablet) 20 mg PO BEDTIME [facility] Finasteride (Finasteride 5 Mg Tablet) 5 mg PO DAILY [facility] Furosemide (Furosemide 40 Mg Tablet) 40 mg PO DAILY [facility]ICA; Protocol Gabapentin (Gabapentin 100 Mg Capsule) 200 mg PO BID [facility] Glucose (Glucose Gel 15 Gm Gel..Gram.) 15 gm PO Q15M PRN; Protocol PRN Reason: per Hypoglycemia Standing Ord. Piperacillin Sod/Tazobactam (Sod 3.375 gm/ Sodium Chloride) 50 mls @ 12.5 mls/hr IV Q8H [facility] Last Infusion: 11/13/22 06:21 Dose: Infused Lactated Ringer's (Lr) 500 mls @ 20 mls/hr IVCONT .Q24H [facility] Last Admin: 11/13/22 02:17 Dose: 20 mls/hr Dextrose (D10) 250 mls @ 750 mls/hr IV Q15M PRN; Protocol PRN Reason: per Hypoglycemia Standing Ord. Vancomycin HCl 1,000 mg/ (Sodium Chloride) 270 mls @ 270 mls/hr IV Q24H [facility] Insulin Human Lispro (Insulin Lispro 100 Unit/Ml 3 Ml Vial) 0 unit SUBCUT QIDACHS [facility]; Protocol Lidocaine HCl (Lidocaine Hcl 2 % Urojet 10 Ml Jel.Pf.Aamir) 10 ml TOPICAL ONCE ONE Stop: 11/13/22 06:43 Non-Formulary Medication (Diazepam) 5 mg PO TID [facility] Ondansetron HCl (Ondansetron Hcl 4 Mg/2 Ml Vial) 4 mg IVPUSH Q8H PRN PRN Reason: Nausea and Vomiting Paroxetine HCl (Paroxetine Hcl 10 Mg Tablet) 10 mg PO DAILY [facility] Pharmacy Consult (Consult Rx Vancomycin Dosing) 1 each MISCELLANE DAILY PRN PRN Reason: Consult order Polyethylene Glycol (Polyethylene Glycol 3350 17 Gm Powd.Pack) 17 gm PO DAILY [facility] Senna/Docusate Sodium (Sennosides/Docusate Sodium Tablet) 2 tab PO BEDTIME [facility] Sodium Chloride (0.9 % Sodium Chloride Flush 3 Ml Syringe) 3 ml IVFLUSH QSHIFT [facility] Tamsulosin HCl (Tamsulosin Hcl 0.4 Mg Capsule) 0.4 mg PO BEDTIME [facility] Vitamin D (Cholecalciferol (Vitamin D3) 25 Mcg Tablet) 50 mcg PO DAILY [facility] Home Medications Medication Instructions Recorded Confirmed Last Taken Type atorvastatin 40 mg tablet 1 tab PO DAILY 10/18/20 11/13/22 Unknown History finasteride 5 mg tablet 1 tab PO DAILY 10/18/20 11/13/22 Unknown History losartan 100 mg tablet 1 tab PO DAILY 10/18/20 11/13/22 Unknown History tamsulosin 0.4 mg capsule 1 cap PO BEDTIME 10/18/20 11/13/22 Unknown History cholecalciferol (vitamin D3) 50 50 mcg PO DAILY 02/17/22 11/13/22 Unknown History mcg (2,000 unit) tablet gabapentin 100 mg capsule 200 mg PO BID 02/17/22 11/13/22 Unknown History paroxetine HCl 10 mg tablet 10 mg PO DAILY 02/17/22 11/13/22 Unknown History potassium chloride 10 mEq 10 meq PO DAILY 02/17/22 11/13/22 Unknown History tablet,extended release(part/cryst) sennosides 8.6 mg-docusate sodium 2 tab PO BEDTIME 02/17/22 11/13/22 Unknown History 50 mg tablet (Senna Plus) Probiotic 1 cap PO BID 11/13/22 11/13/22 Unknown History amitriptyline 50 mg tablet 50 mg PO BEDTIME 11/13/22 11/13/22 Unknown History diazepam 5 mg tablet 5 mg PO TID 11/13/22 11/13/22 Unknown History naproxen 500 mg tablet (Naprosyn) 500 mg PO Q12H PRN Pain 11/13/22 11/13/22 Unknown History omeprazole 20 mg capsule,delayed 20 mg PO DAILY 11/13/22 11/13/22 Unknown History release phenazopyridine 200 mg tablet 200 mg TID 11/13/22 11/13/22 Unknown History (Pyridium) Physical Exam Vital Signs: Vital Signs: Last Vital Signs Temp 97.2 F 11/13/22 04:51 Pulse 83 11/13/22 04:51 Resp 18 11/13/22 04:51 BP 141/60 H 11/13/22 04:51 Pulse Ox 91 L 11/13/22 04:51 O2 Del Method Room Air 11/13/22 04:51 O2 Flow Rate 2 11/13/22 01:56 Oxygen Flow Rate 2 11/12/22 19:02 BMI result Body Mass Index 31.6 Const: General: no acute distress Orientation/consciousness: patient oriented x3 HEENT: Head: Yes normocephalic and Yes atraumatic Eyes: Conjunctivae: conjunctivae normal Neck: Neck: Yes normal visual inspection Chest: Chest palpation & inspection: normal inspection of the chest Resp: Effort & Inspection: normal respiratory effort Cardio: Rate: regular rate GI: Inspection: Yes normal to inspection Palpation (GI): Soft to palpation : Penis: normal penis Scrotum: scrotum normal Skin: General skin exam: no rashes or lesions noted Neuro: General: patient oriented x3 Extrem: General: No pedal edema Psych: Appearance: grossly normal Affect: normal affect Results Labs 11/13/22 05:30 11/13/22 02:03 Labs: Abnormal lab results 11/12/22 11/12/22 11/12/22 Range/Units 19:29 19:29 19:29 WBC 15.6 H (4.8-10.8) X10*3/uL RBC 4.24 L (4.60-5.80) X10*6/uL Hgb 11.5 L (14.0-18.0) g/dl Hct 36.0 L (42.0-52.0) % MCHC (31.0-36.0) g/dl Immature Gran % (Auto) (0.0-0.4) % Neut % (Auto) 90.4 H (45-73) % Lymph % (Auto) 2.2 L (20-40) % Lymph # (Auto) 0.4 L (1.2-4.9) X10*3/uL Abs Immat Gran (auto) 0.05 H (0.00-0.03) X10*3/uL Absolute Neuts (auto) 14.1 H (2.0-8.3) x10*3/uL PT (10.0-13.1) SEC INR (0.9-1.1) BUN 22 H (9-16) mg/dL Creatinine 1.49 H (0.5-1.4) mg/dL Random Glucose 184 H (60-115) mg/dL Lactic Acid (0.5-2.0) mmol/L Lactic Acid F/U @ 2Hr (0.5-2.0) mmol/L Lactic Acid F/U @ 4Hr (0.5-2.0) mmol/L Calcium (8.4-10.2) mg/dL Total Bilirubin 4.5 H (0.0-1.0) mg/dL AST 569 H (5-37) U/L ALT 595 H (0-40) U/L Alkaline Phosphatase 236 H (39-117) U/L Troponin I High Sens 244.4 H* (<3.5-35.0) ng/L Total Protein 6.2 L (6.5-8.0) g/dL Albumin (3.5-5.0) g/dL Salicylates (15-30) mg/dL 11/12/22 11/12/2223 Range/Units 19:29 22:17 23:28 WBC (4.8-10.8) X10*3/uL RBC (4.60-5.80) X10*6/uL Hgb (14.0-18.0) g/dl Hct (42.0-52.0) % MCHC (31.0-36.0) g/dl Immature Gran % (Auto) (0.0-0.4) % Neut % (Auto) (45-73) % Lymph % (Auto) (20-40) % Lymph # (Auto) (1.2-4.9) X10*3/uL Abs Immat Gran (auto) (0.00-0.03) X10*3/uL Absolute Neuts (auto) (2.0-8.3) x10*3/uL PT (10.0-13.1) SEC INR (0.9-1.1) BUN (9-16) mg/dL Creatinine (0.5-1.4) mg/dL Random Glucose (60-115) mg/dL Lactic Acid 3.4 H* (0.5-2.0) mmol/L Lactic Acid F/U @ 2Hr 2.3 H* (0.5-2.0) mmol/L Lactic Acid F/U @ 4Hr (0.5-2.0) mmol/L Calcium (8.4-10.2) mg/dL Total Bilirubin (0.0-1.0) mg/dL AST (5-37) U/L ALT (0-40) U/L Alkaline Phosphatase (39-117) U/L Troponin I High Sens 936.2 H* D (<3.5-35.0) ng/L Total Protein (6.5-8.0) g/dL Albumin (3.5-5.0) g/dL Salicylates (15-30) mg/dL 11/13/22 11/13/22 11/13/22 Range/Units 00:41 02:03 02:03 WBC 18.4 H (4.8-10.8) X10*3/uL RBC 3.43 L (4.60-5.80) X10*6/uL Hgb 9.5 L (14.0-18.0) g/dl Hct 29.6 L (42.0-52.0) % MCHC (31.0-36.0) g/dl Immature Gran % (Auto) (0.0-0.4) % Neut % (Auto) (45-73) % Lymph % (Auto) (20-40) % Lymph # (Auto) (1.2-4.9) X10*3/uL Abs Immat Gran (auto) (0.00-0.03) X10*3/uL Absolute Neuts (auto) (2.0-8.3) x10*3/uL PT (10.0-13.1) SEC INR (0.9-1.1) BUN 21 H (9-16) mg/dL Creatinine (0.5-1.4) mg/dL Random Glucose 151 H (60-115) mg/dL Lactic Acid (0.5-2.0) mmol/L Lactic Acid F/U @ 2Hr (0.5-2.0) mmol/L Lactic Acid F/U @ 4Hr 2.1 H* (0.5-2.0) mmol/L Calcium 7.9 L D (8.4-10.2) mg/dL Total Bilirubin 3.7 H (0.0-1.0) mg/dL AST 304 H (5-37) U/L ALT 447 H (0-40) U/L Alkaline Phosphatase 180 H (39-117) U/L Troponin I High Sens (<3.5-35.0) ng/L Total Protein 5.0 L (6.5-8.0) g/dL Albumin 3.0 L (3.5-5.0) g/dL Salicylates < 5.0 L (15-30) mg/dL 11/13/22 11/13/22 Range/Units 02:03 05:30 WBC 17.9 H (4.8-10.8) X10*3/uL RBC 3.89 L (4.60-5.80) X10*6/uL Hgb 10.6 L (14.0-18.0) g/dl Hct 34.6 L (42.0-52.0) % MCHC 30.6 L (31.0-36.0) g/dl Immature Gran % (Auto) 0.5 H (0.0-0.4) % Neut % (Auto) 85.6 H (45-73) % Lymph % (Auto) 8.0 L (20-40) % Lymph # (Auto) (1.2-4.9) X10*3/uL Abs Immat Gran (auto) 0.09 H (0.00-0.03) X10*3/uL Absolute Neuts (auto) 15.3 H (2.0-8.3) x10*3/uL PT 13.7 H (10.0-13.1) SEC INR 1.2 H (0.9-1.1) BUN (9-16) mg/dL Creatinine (0.5-1.4) mg/dL Random Glucose (60-115) mg/dL Lactic Acid (0.5-2.0) mmol/L Lactic Acid F/U @ 2Hr (0.5-2.0) mmol/L Lactic Acid F/U @ 4Hr (0.5-2.0) mmol/L Calcium (8.4-10.2) mg/dL Total Bilirubin (0.0-1.0) mg/dL AST (5-37) U/L ALT (0-40) U/L Alkaline Phosphatase (39-117) U/L Troponin I High Sens (<3.5-35.0) ng/L Total Protein (6.5-8.0) g/dL Albumin (3.5-5.0) g/dL Salicylates (15-30) mg/dL Short CBC 11/12/22 11/13/22 11/13/22 Range/Units 19:29 02:03 05:30 WBC 15.6 H 18.4 H 17.9 H (4.8-10.8) X10*3/uL Hgb 11.5 L 9.5 L 10.6 L (14.0-18.0) g/dl Hct 36.0 L 29.6 L 34.6 L (42.0-52.0) % Plt Count 233 209 217 (160-400) X10*3/uL BMP 11/12/22 11/13/22 19:29 02:03 Sodium 137 140 Potassium 4.4 4.4 Chloride 102 108 Carbon Dioxide 24 22 BUN 22 H 21 H Creatinine 1.49 H 1.40 Calcium 9.1 7.9 L D Liver Function 11/12/22 11/13/22 Range/Units 19:29 02:03 Total Bilirubin 4.5 H 3.7 H (0.0-1.0) mg/dL AST 569 H 304 H (5-37) U/L ALT 595 H 447 H (0-40) U/L Alkaline Phosphatase 236 H 180 H (39-117) U/L Albumin 3.8 3.0 L (3.5-5.0) g/dL Imaging Abdomen CT scan report/results: report reviewed and image reviewed CT scan - pelvis: report reviewed and image reviewed Additional studies: Date of Service: 11/12/22 EXAMINATION: CT ABDOMEN AND PELVIS WITHOUT CONTRAST? CLINICAL INFORMATION: Abdominal pain? COMPARISON: CT abdomen pelvis 10/17/2020? TECHNIQUE: Multidetector volumetric imaging was performed from the superior aspect of the liver through the pubic symphysis. Sagittal and coronal reformatted images were obtained on the technologist's workstation.? This CT examination was performed using dose optimization techniques as appropriate, variously including the following: *Automated exposure control *Adjustment of mA and/or kV according to patient size (this includes techniques or standardized protocols for targeted exams where dose is matched to indication/reason for exam; i.e. extremities or head) *Use of iterative reconstruction technique DLP: 783 mGy-cm FINDINGS: LUNG BASES: Streaky bibasilar atelectasis. Tiny calcified granuloma in the left lung base.? ABDOMINAL AND PELVIC WALL:? Unremarkable.? LIVER AND BILIARY TREE: Hypoattenuating hepatic parenchyma compatible with hepatic steatosis.? GALLBLADDER: Intermediate density material layering within the gallbladder, unclear if this could reflect noncalcified stones, sludge or gallbladder wall thickening, recommend correlation with nonemergent right upper quadrant ultrasound. There are no findings to suggest acute cholecystitis. PANCREAS: Unremarkable.? SPLEEN: Unremarkable.? ADRENAL GLANDS: Unremarkable.? KIDNEYS AND URETERS: Bilateral Bosniak 1 renal cysts, no imaging follow-up recommended.? GASTROINTESTINAL TRACT: Dense material layering within the gastric fundus may reflect ingested contents.? Normal appendix. VASCULAR: Unremarkable. LYMPH NODES/PERITONEUM: Borderline enlarged portacaval node, present since 2020 and only slightly increased in size previously 0.9 cm possibly reactive in the setting of underlying liver disease. FREE FLUID: None. BLADDER: Urinary bladder is distended.? Few foci of gas within the bladder lumen recommend correlation with any history of instrumentation.? PELVIC VISCERA: Unremarkable. OSSEOUS STRUCTURES: Unremarkable.? IMPRESSION:? *? Intermediate density material layering within the gallbladder, unclear if this could reflect noncalcified stones, sludge or gallbladder wall thickening, recommend correlation with nonemergent right upper quadrant ultrasound. There are no findings to suggest acute cholecystitis. ? *? Urinary bladder is distended. Few foci of gas within the bladder lumen recommend correlation with any history of instrumentation. ? *? Hepatic steatosis. Borderline enlarged portacaval node present since 2020 and only slightly increased in size may be reactive in setting of underlying liver disease. ? Assessment and Plan (1) Urinary retention: Status: Acute (2) Urinary tract infection: Status: Acute (3) Urethral stricture in male: Status: Acute Plan Bulbous urethral stricture noted, guide wire passed but unable to pass urethral dilators 8fr or 10 fr Options discussed with patient include cysto urethral dilation under anesthesia, Discussed plan with Hospitalist and was informed that the pt is being worked up for [place] Alternatively patient may require bedside SP tube insertion. Time Spent With Patient Time: Total time managing care of this patient today 70_ minutes. Procedures Date of Service Date of Service: 11/13/22 Catheter Insertion (Urinary) Reason for placing: Acute urinary retention Antiseptic solution prep: Povidone-Iodine Results: unable to pass and consulted Comment: Attempted to place 16 fr coude, unable to pass. Additional comments: Consent obtained for bedside cystoscopy. Time out done per protocol. bulbous urethral stricture noted, guide wire passed but unable to pass urethral dilators 8fr or 10 fr.
--- NOTE | 2022-11-13 07:00 | CA_ITS ---
Transthoracic Echocardiogram Patient (Last, First, Middle): Daniel Lozada, Gender: Male Date of : 1950 Age: 72 Procedure Date: 11/13/2022 Procedure Type: Transthoracic Echocardiogram Location: S3E Height: 175.26 cm Weight: 97.07 kg BSA: 2.13 m2 Heart Rate: 83 bpm BP: 128 / 58 mmHg Sales And Service Specialist: NISHANT Referring MD: Freddy Guzmán MD Symptoms: NSTEMI Study Quality: Adequate ECG Rhythm: Sinus Conclusions: - Normal left ventricular size and systolic function. There is mildly increased left ventricular wall thickness. The visually estimated ejection fraction is between 55-60%. - There are no definitive regional wall motion abnormalities. - Normal right ventricular cavity size and systolic function Findings Left Ventricle Normal left ventricular size and systolic function. There is mildly increased left ventricular wall thickness. The visually estimated ejection fraction is between 55-60%. Abnormal diastolic function is noted. Spectral Doppler is indicative of an impaired relaxation filling pattern. Elevated filling pressures. There is severe septal asymmetric hypertrophy. There are no definitive regional wall motion abnormalities. Right Ventricle Normal right ventricular cavity size and systolic function. Atria The left atrium is normal in size. The right atrium is normal in size. Aortic Valve There is a normal trileaflet aortic valve. There is mild calcification of the aortic valve. There is no aortic valve stenosis. There is no aortic valve regurgitation. Mitral Valve The mitral valve appears normal. There is mild mitral valve regurgitation. There is no mitral valve stenosis. Pulmonic Valve The pulmonic valve is likely normal. Tricuspid Valve Likely normal tricuspid valve structure and function. Tricuspid regurgitation envelope is inadequate for calculation of right ventricular systolic pressure. Normal right atrial pressure. Great Vessels There is mild dilatation of the ascending aorta measuring 3.80 cm. Venous The inferior vena cava is normal in size and collapses greater than 50% with inspiration. Pericardium/Pleural Prominent epicardial adipose tissue noted. There is no evidence of pericardial effusion. Prior Study Comparison No significant change compared to prior study dated: 07/11/2019. Measurements 2D Linear Measurements IVSd: 1.64 0.6-0.9/0.6-1.0 cm LVIDd: 4.42 3.9-5.3/4.2-5.9 cm LVIDd Index: 2.08 2.4-3.2/2.2-3.1 cm/m2 LVIDs: 3.21 2.0-3.6 cm LVPWd: 1.16 0.7-1.1 cm LA Diam: 3.50 2.7-3.8/3.0-4.0 cm LAIDs Index: 1.64 1.5-2.3 cm/m2 LV Mass: 301.62 67-162/88-224 g LV Mass Index: 141.60 43-95/49-115 g/m2 LVOT Diam: 2.00 3.0+(-)1.3 cm 2D Systolic Function EF 4C: 52.90 >55% EF 2C: 60.70 >55% EF BiP: 58.50 >55% Mitral Valve MV Pk E: 1.09 MV PK A: 1.09 MV Decel Time: 182.00 E/A: 1.00 E'Lateral: 9.03 E'Medial: 6.09 E/E' Med: 17.90 E/E' Lat: 12.10 PHT: 53.00 MVA PHT: 4.15 Decel [place]: 5.99 Aortic Valve AoV Pk Denzel: 1.25 AoV Mn Denzel: 0.96 AoV VTI: 0.26 AoV Pk Grad: 6.00 Aov Mn Grad: 4.00 EZEQUIEL Cont.VTI: 2.12 LVOT LVOT Pk Denzel: 0.89 LVOT Mn Denzel: 0.58 LVOT VTI: 0.18 LVOT Pk Grad: 3.00 LVOT Mn Grad: 2.00 LVOT Diam: 2.00 LVOT Area: 3.14 Diastolic Function MV Pk E: 1.09 MV Pk A: 1.09 E/A: 1.00 E'Medial: 6.09 E/E' Med: 17.90 E' Laterial: 9.03 E/E' Lat: 12.10 Right Ventricle TAPSE (mm): 18.30 TVS' Denzel: 12.80 Tricuspid Valve RA Press: 3.00 Great Vessels Aorta Sinus of Valsalva: 3.30 2.0-3.5 cm Ao Asc: 3.80 2.1-3.4 cm Pulmonary Valve PV Pk Denzel: 0.70 Peak PV Grad: 2.00 Updated in Other Vendor System with Status of Final Mike Lamas MD electronically signed on 11/13/2022 2:30:54 PM with status of Final
[2022-11-13 07:13] VITALS: BP 128/58; PULSE 78; RESP 18; TEMP 36.2; O2SAT 92
[2022-11-13 07:18] LABS: Glucose, Whole Blood 155 mg/dL (60-115)
[2022-11-13 07:26] LABS: Lactic Acid 1.7 mmol/L (0.5-2.0)
[2022-11-13] MEDS: Lidocaine HCl 2 % Urojet 10 ML JEL.PF.APP TOPICAL (07:33)
--- NOTE | 2022-11-13 07:56 | PHA.MEDREC ---
Pharmacy Consult ? Medication Reconciliation Pharmacy has reviewed the medication reconciliation completed by Tanja. Added amtriptyline, naprosyn and omeprazole to med list. Precious Knight, KenroyD
[2022-11-13 08:00] LABS: Troponin-I High Sensitivity 3217.8 ng/L (<3.5-35.0)
--- NOTE | 2022-11-13 08:30 | PM.GICN ---
History of Present Illness Data of Consult Service Date: 11/13/22 Requesting physician: Freddy Guzmán Primary Care Provider: Tim Seaman MD HPI Reason for consult: Elevated LFTs This is a 72-year-old gentleman with past medical history of chronic heart failure with preserved ejection fraction, COPD with chronic hypoxic respiratory failure on supplemental O2, type 2 diabetes, depression, atrial fibrillation, not on anticoagulation, who presented to the hospital for feeling unwell and was found to have a non STEMI. Gastroenterology has been consulted for elevated LFTs. History was obtained from the patient, who states that on the day of presentation he had severe chest pain and pressure associated with some shortness of breath and chills. No nausea, abdominal pain, lightheadedness with this. When he presented to the emergency room, he was noted to be febrile 101.5 T-max, with tachycardia to 134. Blood pressure stable. Labs were significant for leukocytosis to 18.4, hemoglobin 9.5 after resuscitation, Chem 7 with creatinine of 1.4 which appears to be at his baseline. His initial troponin was 244, which has progressively increased to 3217.8 this morning. He has been started on therapeutic anticoagulation. LFTs show AST of 569, ALT 595, alk-phos 236, total bilirubin 4.5. These have all decreased from this morning. Hepatitis serologies pending. Imaging including ultrasound abdomen shows cholelithiasis with gallbladder sludge. No significant gallbladder wall thickening or pericholecystic fluid noted. Review of Systems Review of Systems: Yes all other systems are reviewed and are negative PMFSH Past Medical History Medical History Abdomen enlarged Acute on chronic heart failure with preserved ejection fraction (HFpEF) Acute on chronic respiratory failure with hypoxia and hypercapnia Acute renal failure Acute respiratory failure with hypoxia Acute upper gastrointestinal bleeding Afib STIVEN (acute kidney injury) Altered mental status Aspiration pneumonitis Atypical pneumonia Borderline diabetic CHF exacerbation Congestive heart failure Hypertension Hyperthyroidism Hypoxia Ileus Multifocal pneumonia Myocardial infarct Partial obstruction of small intestine Pneumonia Pulmonary aspiration Sepsis associated hypotension Toxic metabolic encephalopathy Urinary catheter in place Urinary tract infection Social History Social History Household Members: None Housing: [facility] Do you presently have visiting nurse or other home services: No (private [facility]) Unable to assess alcohol history related to: Unknown Alcohol intake: former Patient Tobacco Use Status: Never used Tobacco Smoked in Last 30 Days: No Use of substances other than those prescribed or required for medical reasons: No Substance Use Type: Unknown Currently Displaying Signs/Symptoms of Drug Intoxication Withdrawal: No Any prior treatment program specific to substance use: No Have you been hit, kicked, punched, or otherwise hurt by someone within the past year? If so, by whom?: No Do you feel safe in your current relationship?: Yes Is there a partner from a previous relationship who is making you feel unsafe now?: No Are you made to feel afraid or neglected: No Advance Directives: Yes Advance Directives on File: Yes Advance Directives Date on File: 11/01/20 Do you have thoughts of harming others: None Do you have a plan to hurt others: No Plan Recently lost weight without trying: No How much weight loss: Not applicable Eating poorly because of decreased appetite: No Nutrition screen score: 0 Nutrition Risks: No Nutritional Risk Poor oral hygiene: No service: No Current occupational status: retired [employer] Allergies Allergy/AdvReac Type Severity Reaction Status Date / Time No Known Allergies Allergy Verified 11/13/22 05:12 [No Known Allergies*] Active Medications: Current Medications Amitriptyline HCl (Amitriptyline Hcl 50 Mg Tablet) 50 mg PO BEDTIME [facility] Amlodipine Besylate (Amlodipine Besylate 10 Mg Tablet) 10 mg PO DAILY [facility]; Protocol Atorvastatin Calcium (Atorvastatin Calcium 40 Mg Tablet) 40 mg PO DAILY [facility] Diazepam (Diazepam 5 Mg Tablet) 5 mg PO TID [facility] Docusate Sodium (Docusate Sodium 100 Mg Capsule) 100 mg PO DAILY PRN PRN Reason: Constipation Enoxaparin Sodium (Enoxaparin Sodium 100 Mg/Ml Syringe) 90 mg 1 mg/kg (90 mg) SUBCUT Q12H [facility] Famotidine (Famotidine 20 Mg Tablet) 20 mg PO BEDTIME [facility] Finasteride (Finasteride 5 Mg Tablet) 5 mg PO DAILY [facility] Furosemide (Furosemide 40 Mg Tablet) 40 mg PO DAILY [facility]; Protocol Gabapentin (Gabapentin 100 Mg Capsule) 200 mg PO BID [facility] Glucose (Glucose Gel 15 Gm Gel..Gram.) 15 gm PO Q15M PRN; Protocol PRN Reason: per Hypoglycemia Standing Ord. Piperacillin Sod/Tazobactam (Sod 3.375 gm/ Sodium Chloride) 50 mls @ 12.5 mls/hr IV Q8H [facility] Last Infusion: 11/13/22 06:21 Dose: Infused Lactated Ringer's (Lr) 500 mls @ 20 mls/hr IVCONT .Q24H [facility] Last Admin: 11/13/22 02:17 Dose: 20 mls/hr Dextrose (D10) 250 mls @ 750 mls/hr IV Q15M PRN; Protocol PRN Reason: per Hypoglycemia Standing Ord. Insulin Human Lispro (Insulin Lispro 100 Unit/Ml 3 Ml Vial) 0 unit SUBCUT QIDACHS [facility]; Protocol Ondansetron HCl (Ondansetron Hcl 4 Mg/2 Ml Vial) 4 mg IVPUSH Q8H PRN PRN Reason: Nausea and Vomiting Paroxetine HCl (Paroxetine Hcl 10 Mg Tablet) 10 mg PO DAILY [facility] Polyethylene Glycol (Polyethylene Glycol 3350 17 Gm Powd.Pack) 17 gm PO DAILY [facility] Senna/Docusate Sodium (Sennosides/Docusate Sodium Tablet) 2 tab PO BEDTIME [facility] Sodium Chloride (0.9 % Sodium Chloride Flush 3 Ml Syringe) 3 ml IVFLUSH QSHIFT [facility] Tamsulosin HCl (Tamsulosin Hcl 0.4 Mg Capsule) 0.4 mg PO BEDTIME [facility] Vitamin D (Cholecalciferol (Vitamin D3) 25 Mcg Tablet) 50 mcg PO DAILY [facility] Home Medications Medication Instructions Recorded Confirmed Last Taken Type atorvastatin 40 mg tablet 1 tab PO DAILY 10/18/20 11/13/22 Unknown History finasteride 5 mg tablet 1 tab PO DAILY 10/18/20 11/13/22 Unknown History losartan 100 mg tablet 1 tab PO DAILY 10/18/20 11/13/22 Unknown History tamsulosin 0.4 mg capsule 1 cap PO BEDTIME 10/18/20 11/13/22 Unknown History cholecalciferol (vitamin D3) 50 50 mcg PO DAILY 02/17/22 11/13/22 Unknown History mcg (2,000 unit) tablet gabapentin 100 mg capsule 200 mg PO BID 02/17/22 11/13/22 Unknown History paroxetine HCl 10 mg tablet 10 mg PO DAILY 02/17/22 11/13/22 Unknown History potassium chloride 10 mEq 10 meq PO DAILY 02/17/22 11/13/22 Unknown History tablet,extended release(part/cryst) sennosides 8.6 mg-docusate sodium 2 tab PO BEDTIME 02/17/22 11/13/22 Unknown History 50 mg tablet (Senna Plus) Probiotic 1 cap PO BID 11/13/22 11/13/22 Unknown History amitriptyline 50 mg tablet 50 mg PO BEDTIME 11/13/22 11/13/22 Unknown History diazepam 5 mg tablet 5 mg PO TID 11/13/22 11/13/22 Unknown History naproxen 500 mg tablet (Naprosyn) 500 mg PO Q12H PRN Pain 11/13/22 11/13/22 Unknown History omeprazole 20 mg capsule,delayed 20 mg PO DAILY 11/13/22 11/13/22 Unknown History release phenazopyridine 200 mg tablet 200 mg TID 11/13/22 11/13/22 Unknown History (Pyridium) Physical Exam Vital Signs: Vital Signs: Last Vital Signs Temp 97.1 F 11/13/22 07:13 Pulse 78 11/13/22 07:13 Resp 18 11/13/22 07:13 BP 128/58 L 11/13/22 07:13 Pulse Ox 92 11/13/22 07:13 O2 Del Method Room Air 11/13/22 07:13 O2 Flow Rate 2 11/13/22 01:56 Oxygen Flow Rate 2 11/12/22 19:02 BMI result Body Mass Index 31.6 Gen appear: Nontoxic appearing HEENT: no icterus, no cervical lymphadenopathy Chest: No overt resp distress CVS: S1/S2, regular Abd: soft, nontender, nondistended Psych: Stable affect, answering questions appropriately Neuro: A/Ox3 noted to move all extremities spontaneously Ext: no peripheral edema Results Labs 11/13/22 05:30 11/13/22 02:03 Labs: Short CBC 11/12/22 11/13/22 11/13/22 Range/Units 19:29 02:03 05:30 WBC 15.6 H 18.4 H 17.9 H (4.8-10.8) X10*3/uL Hgb 11.5 L 9.5 L 10.6 L (14.0-18.0) g/dl Hct 36.0 L 29.6 L 34.6 L (42.0-52.0) % Plt Count 233 209 217 (160-400) X10*3/uL BMP 11/12/22 11/13/22 19:29 02:03 Sodium 137 140 Potassium 4.4 4.4 Chloride 102 108 Carbon Dioxide 24 22 BUN 22 H 21 H Creatinine 1.49 H 1.40 Calcium 9.1 7.9 L D Liver Function 11/12/22 11/13/22 Range/Units 19:29 02:03 Total Bilirubin 4.5 H 3.7 H (0.0-1.0) mg/dL AST 569 H 304 H (5-37) U/L ALT 595 H 447 H (0-40) U/L Alkaline Phosphatase 236 H 180 H (39-117) U/L Albumin 3.8 3.0 L (3.5-5.0) g/dL Assessment and Plan (1) Non-ST elevation SC (NSTEMI): Status: Acute (2) Elevated LFTs: Status: Acute (3) Sepsis: Status: Acute Plan Elevated LFTs likely from mild ishcemic hepatitis due to a combination of sepsis as well as NSTEMI. Also has underlying fatty liver. Clinically does not seem to be consistent with acute cholecystitis. Range is within x10UNL and already trending down which is reassuring. Recommendations: - Hepatitis serologies pending - Can check ASA and tylenol level - Expect LFTs to improve further over next 1-2 days - Please add bowel regimen Thank you for allowing me to participate in his care. Please do not hesitate to reach out for any questions or concerns. Time Spent With Patient Time: Total time managing care of this patient today ____ minutes. Procedures Date of Service Date of Service: 11/13/22
[2022-11-13 08:31] LABS: Appearance Urine Clear; Color Urine Dark Yellow; Glucose Urine UA Negative (Negative); Leukocyte Esterase Urine Moderate (2+) (Negative); Nitrite Urine Positive (Negative); PH 6.5 (5.0-9.0); Specific Gravity - Urine 1.015 (1.005-1.025); UMIC TRIGGER UACC YES; Urine Blood Small (1+) (Negative); Urine Ketones Negative (Negative); Urine Protein Trace mg/dL (Neg-Trace)
[2022-11-13 08:37] LABS: Bacteria Urine 4+ (None Seen); Hyaline Casts Urine 0-2 /LPF (0-2); RBC Urine >20 /HPF (0-2); Squamous Epithelial Cell Urine 0-2 /HPF (0-2); UACC Culture Trigger YES
[2022-11-13] MEDS: polyethylene glycoL 3350 17 GM POWD.PACK PO (08:50)
[2022-11-13] MEDS: Furosemide 40 MG TABLET PO (08:50)
[2022-11-13] MEDS: diazePAM 5 MG TABLET PO ×3 (08:50→20:54)
[2022-11-13] MEDS: amLODIPine Besylate 10 MG TABLET PO (08:50)
[2022-11-13] MEDS: Atorvastatin Calcium 40 MG TABLET PO (08:50)
[2022-11-13] MEDS: Cholecalciferol (Vitamin D3) 25 MCG TABLET 50 MCG PO (08:51)
[2022-11-13] MEDS: Gabapentin 100 MG CAPSULE 200 MG PO ×2 (08:52→20:54)
[2022-11-13 09:04] LABS: HBS Num1 0.24 mIU/mL (0-7.99); HBc Num1 0.13 S/CO (0.00-0.79); HBsAGNum1 0.29 S/CO (0.00-0.99); Hepatitis A Antibody IgM 0.28 Index (0-0.79); Hepatitis B Core Antibody Nonreactive (Nonreactive); Hepatitis B Surface Antigen Negative (Negative); ~HepC Num1 0.16 S/CO (0.00-0.79); ~Hepatitis A Antibody IgM Nonreactive (Nonreactive); ~Hepatitis B Surface Antibody NONREACTIVE (Nonreactive); ~Hepatitis C Antibody Nonreactive (Nonreactive)
--- NOTE | 2022-11-13 09:23 | PM.CNGS ---
History of Present Illness Consult details Consult date: 11/13/22 <Erica Nguyen PA-C - Last Filed: 11/14/22 11:10> Reason for consult: gallstones (possible acute cholecystitis) <Erica Nguyen PA-C - Last Filed: 11/14/22 11:10> Requesting physician: Freddy Guzmán <Erica Nguyen PA-C - Last Filed: 11/14/22 11:10> Narrative: 72-year-old male with extensive PMH of chronic heart failure with preserved EF, COPD on supplemental O2, type 2 diabetes, atrial fibrillation who presented to the hospital for severe left sided chest pain. He reports he developed left sided chest pain last night and this spread to the right side. 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 He was also found to be febrile at 101.5 and tachycardic with leukocytosis to 18.4. LFTs were elevated with AST of 569, ALT 595, alk-phos 236, total bilirubin 4.5 which are all downtrending this am. CT abd was performed which showed intermediate density material layering within the gallbladder. ABD US was therefore performed which showed gallstones with mildly thickened gallbladder wall without pericholecystic fluid or inflammation and negative sonographic Chicas sign. Oseguera insertion was attempted but unable to do so and urology consulted for oseguera placement for urinalysis and culture. He was admitted to the medical service for further treatment of the nSTEMI and sepsis of unknown origin, possible UTI vs acute cholecystitis. He has been started on IV zosyn. Surgery was consulted for evaluation. This morning he feels a little improved. He also reports feeling generally unwell but denies nausea, vomiting, abdominal pain, chills. He endorses dysuria. He reports a history of chronic constipation. He takes miralax and milk of magnesia. <YURI Mac Last Filed: 11/14/22 11:10> Review of Systems Constitutional: Constitutional: Reports as per HPI <YURI Mac Last Filed: 11/14/22 11:10> ENT: Denies dizziness <Erica Nguyen PA-C Last Filed: 11/14/22 11:10> Cardiovascular: Cardiovascular: Reports chest pain and Denies dyspnea <Erica Nguyen PA-C Last Filed: 11/14/22 11:10> Respiratory: Respiratory: Denies cough and Denies dyspnea <Erica Nguyen PA-C Last Filed: 11/14/22 11:10> Gastrointestinal: Gastrointestinal: Denies abdominal pain, Denies change in stool character, Reports constipation, Denies nausea and Denies vomiting <Erica Nguyen PA-C Last Filed: 11/14/22 11:10> Genitourinary: Genitourinary: Reports as per HPI <Erica Nguyen PA-C Last Filed: 11/14/22 11:10> Integumentary/Breasts: Skin/Breast: Denies rash and Denies jaundice <Erica Nguyen PA-C Last Filed: 11/14/22 11:10> Neurologic: Denies confusion and Denies dizziness <Erica Nguyen PA-C Last Filed: 11/14/22 11:10> Psychiatric: Psychiatric: Denies confusion <Erica Nguyen PA-C Last Filed: 11/14/22 11:10> [facility] Past Medical History Medical History: Medical History Abdomen enlarged Acute on chronic heart failure with preserved ejection fraction (HFpEF) Acute on chronic respiratory failure with hypoxia and hypercapnia Acute renal failure Acute respiratory failure with hypoxia Acute upper gastrointestinal bleeding Afib STIVEN (acute kidney injury) Altered mental status Aspiration pneumonitis Atypical pneumonia Borderline diabetic CHF exacerbation Congestive heart failure Hypertension Hyperthyroidism Hypoxia Ileus Multifocal pneumonia Myocardial infarct Partial obstruction of small intestine Pneumonia Pulmonary aspiration Sepsis associated hypotension Toxic metabolic encephalopathy Urinary catheter in place Urinary tract infection <Erica Nguyen PA-C Last Filed: 11/14/22 11:10> Social History Social History: Social History Household Members: None Housing: Retirement Do you presently have visiting nurse or other home services: No (private [facility]) Unable to assess alcohol history related to: Unknown Alcohol intake: former Patient Tobacco Use Status: Never used Tobacco Smoked in Last 30 Days: No Use of substances other than those prescribed or required for medical reasons: No Substance Use Type: Unknown Currently Displaying Signs/Symptoms of Drug Intoxication Withdrawal: No Any prior treatment program specific to substance use: No Have you been hit, kicked, punched, or otherwise hurt by someone within the past year? If so, by whom?: No Do you feel safe in your current relationship?: Yes Is there a partner from a previous relationship who is making you feel unsafe now?: No Are you made to feel afraid or neglected: No Advance Directives: Yes Advance Directives on File: Yes Advance Directives Date on File: 11/01/20 Do you have thoughts of harming others: None Do you have a plan to hurt others: No Plan Recently lost weight without trying: No How much weight loss: Not applicable Eating poorly because of decreased appetite: No Nutrition screen score: 0 Nutrition Risks: No Nutritional Risk Poor oral hygiene: No service: No Current occupational status: retired <Erica Nguyen PA-C - Last Filed: 11/14/22 11:10> Meds Allergies/Adverse reactions: Allergies Allergy/AdvReac Type Severity Reaction Status Date / Time No Known Allergies Allergy Verified 11/13/22 05:12 [No Known Allergies*] <Erica Nguyen PA-C - Last Filed: 11/14/22 11:10> Active Medications: Current Medications Amitriptyline HCl (Amitriptyline Hcl 50 Mg Tablet) 50 mg PO BEDTIME [facility] Amlodipine Besylate (Amlodipine Besylate 10 Mg Tablet) 10 mg PO DAILY [facility]; Protocol Last Admin: 11/13/22 08:50 Dose: 10 mg Atorvastatin Calcium (Atorvastatin Calcium 40 Mg Tablet) 40 mg PO DAILY [facility] Last Admin: 11/13/22 08:50 Dose: 40 mg Diazepam (Diazepam 5 Mg Tablet) 5 mg PO TID [facility] Last Admin: 11/13/22 08:50 Dose: 5 mg Docusate Sodium (Docusate Sodium 100 Mg Capsule) 100 mg PO DAILY PRN PRN Reason: Constipation Enoxaparin Sodium (Enoxaparin Sodium 100 Mg/Ml Syringe) 90 mg 1 mg/kg (90 mg) SUBCUT Q12H [facility] Famotidine (Famotidine 20 Mg Tablet) 20 mg PO BEDTIME [facility] Finasteride (Finasteride 5 Mg Tablet) 5 mg PO DAILY [facility] Furosemide (Furosemide 40 Mg Tablet) 40 mg PO DAILY [facility]; Protocol Last Admin: 11/13/22 08:50 Dose: 40 mg Gabapentin (Gabapentin 100 Mg Capsule) 200 mg PO BID [facility] Last Admin: 11/13/22 08:52 Dose: 200 mg Glucose (Glucose Gel 15 Gm Gel..Gram.) 15 gm PO Q15M PRN; Protocol PRN Reason: per Hypoglycemia Standing Ord. Piperacillin Sod/Tazobactam (Sod 3.375 gm/ Sodium Chloride) 50 mls @ 12.5 mls/hr IV Q8H [facility] Last Infusion: 11/13/22 06:21 Dose: Infused Lactated Ringer's (Lr) 500 mls @ 20 mls/hr IVCONT .Q24H [facility] Last Admin: 11/13/22 02:17 Dose: 20 mls/hr Dextrose (D10) 250 mls @ 750 mls/hr IV Q15M PRN; Protocol PRN Reason: per Hypoglycemia Standing Ord. Insulin Human Lispro (Insulin Lispro 100 Unit/Ml 3 Ml Vial) 0 unit SUBCUT QIDACHS [facility]; Protocol Ondansetron HCl (Ondansetron Hcl 4 Mg/2 Ml Vial) 4 mg IVPUSH Q8H PRN PRN Reason: Nausea and Vomiting Paroxetine HCl (Paroxetine Hcl 10 Mg Tablet) 10 mg PO DAILY [facility] Polyethylene Glycol (Polyethylene Glycol 3350 17 Gm Powd.Pack) 17 gm PO DAILY [facility] Last Admin: 11/13/22 08:50 Dose: 17 gm Senna/Docusate Sodium (Sennosides/Docusate Sodium Tablet) 2 tab PO BEDTIME [facility] Sodium Chloride (0.9 % Sodium Chloride Flush 3 Ml Syringe) 3 ml IVFLUSH QSHIFT [facility] Tamsulosin HCl (Tamsulosin Hcl 0.4 Mg Capsule) 0.4 mg PO BEDTIME [facility] Vitamin D (Cholecalciferol (Vitamin D3) 25 Mcg Tablet) 50 mcg PO DAILY [facility] Last Admin: 11/13/22 08:51 Dose: 50 mcg <Erica Nguyen PA-C - Last Filed: 11/14/22 11:10> Home medications: Home Medications Medication Instructions Recorded Confirmed Last Taken Type atorvastatin 40 mg tablet 1 tab PO DAILY 10/18/20 11/13/22 Unknown History finasteride 5 mg tablet 1 tab PO DAILY 10/18/20 11/13/22 Unknown History losartan 100 mg tablet 1 tab PO DAILY 10/18/20 11/13/22 Unknown History tamsulosin 0.4 mg capsule 1 cap PO BEDTIME 10/18/20 11/13/22 Unknown History cholecalciferol (vitamin D3) 50 50 mcg PO DAILY 02/17/22 11/13/22 Unknown History mcg (2,000 unit) tablet gabapentin 100 mg capsule 200 mg PO BID 02/17/22 11/13/22 Unknown History paroxetine HCl 10 mg tablet 10 mg PO DAILY 02/17/22 11/13/22 Unknown History potassium chloride 10 mEq 10 meq PO DAILY 02/17/22 11/13/22 Unknown History tablet,extended release(part/cryst) sennosides 8.6 mg-docusate sodium 2 tab PO BEDTIME 02/17/22 11/13/22 Unknown History 50 mg tablet (Senna Plus) Probiotic 1 cap PO BID 11/13/22 11/13/22 Unknown History amitriptyline 50 mg tablet 50 mg PO BEDTIME 11/13/22 11/13/22 Unknown History diazepam 5 mg tablet 5 mg PO TID 11/13/22 11/13/22 Unknown History naproxen 500 mg tablet (Naprosyn) 500 mg PO Q12H PRN Pain 11/13/22 11/13/22 Unknown History omeprazole 20 mg capsule,delayed 20 mg PO DAILY 11/13/22 11/13/22 Unknown History release phenazopyridine 200 mg tablet 200 mg TID 11/13/22 11/13/22 Unknown History (Pyridium) <Erica Nguyen PA-C - Last Filed: 11/14/22 11:10> Physical Exam Vital Signs: Vital Signs: Last Vital Signs Temp 97.1 F 11/13/22 07:13 Pulse 78 11/13/22 07:13 Resp 18 11/13/22 07:13 BP 128/58 L 11/13/22 07:13 Pulse Ox 92 11/13/22 07:13 O2 Del Method Room Air 11/13/22 07:13 O2 Flow Rate 2 11/13/22 01:56 Oxygen Flow Rate 2 11/12/22 19:02 BMI result Body Mass Index 31.6 <Erica Nguyen PA-Prem Gamboa Last Filed: 11/14/22 11:10> Const: General: No confusion <Erica RubiobodeauBHANUPrem Gamboa Last Filed: 11/14/22 11:10> Orientation/consciousness: patient oriented x3 and No confusion <Erica RubioPHOENIX parkerAlexandra Gamboa Last Filed: 11/14/22 11:10> Resp: Effort & Inspection: normal respiratory effort <Erica RubioPHOENIX parkerAlexandra Gamboa Last Filed: 11/14/22 11:10> GI: Other: protuberant abdomen <Erica RubioPHOENIX parkerAlexandra Gamboa Last Filed: 11/14/22 11:10> Inspection: Yes distended <Erica RubioPHOENIX parkerAlexandra Gamboa Last Filed: 11/14/22 11:10> Palpation (GI): Soft to palpation, Tenderness to palpation present (GI) in the RUQ (mild); Chicas's sign negative, no guarding and not rigid <Erica RubioPHOENIX parkerAlexandra Gamboa Last Filed: 11/14/22 11:10> Percussion: Yes tympanic to percussion <Erica SotoPHOENIX chavezAlexandra Gamboa Last Filed: 11/14/22 11:10> Skin: General skin exam: no rashes or lesions noted <Erica RubioPHOENIX parkerAlexandra Gamboa Last Filed: 11/14/22 11:10> Neuro: General: patient oriented x3, moves all extremities and No confusion <Erica WendyPHOENIX parkerAlexandra Gamboa Last Filed: 11/14/22 11:10> Results Labs Result diagrams: 11/13/22 05:30 11/13/22 02:03 <Erica RubioPHOENIX parkerAlexandra Gamboa Last Filed: 11/14/22 11:10> Labs: Abnormal lab results 11/12/22 11/12/22 11/12/22 Range/Units 19:29 19:29 19:29 WBC 15.6 H (4.8-10.8) X10*3/uL RBC 4.24 L (4.60-5.80) X10*6/uL Hgb 11.5 L (14.0-18.0) g/dl Hct 36.0 L (42.0-52.0) % MCHC (31.0-36.0) g/dl Immature Gran % (Auto) (0.0-0.4) % Neut % (Auto) 90.4 H (45-73) % Lymph % (Auto) 2.2 L (20-40) % Lymph # (Auto) 0.4 L (1.2-4.9) X10*3/uL Abs Immat Gran (auto) 0.05 H (0.00-0.03) X10*3/uL Absolute Neuts (auto) 14.1 H (2.0-8.3) x10*3/uL PT (10.0-13.1) SEC INR (0.9-1.1) BUN 22 H (9-16) mg/dL Creatinine 1.49 H (0.5-1.4) mg/dL POC Glucose (60-115) mg/dL Random Glucose 184 H (60-115) mg/dL Lactic Acid (0.5-2.0) mmol/L Lactic Acid F/U @ 2Hr (0.5-2.0) mmol/L Lactic Acid F/U @ 4Hr (0.5-2.0) mmol/L Calcium (8.4-10.2) mg/dL Total Bilirubin 4.5 H (0.0-1.0) mg/dL AST 569 H (5-37) U/L ALT 595 H (0-40) U/L Alkaline Phosphatase 236 H (39-117) U/L Troponin I High Sens 244.4 H* (<3.5-35.0) ng/L Total Protein 6.2 L (6.5-8.0) g/dL Albumin (3.5-5.0) g/dL Urine Blood (Negative) Urine Nitrite (Negative) Ur Leukocyte Esterase (Negative) Urine RBC (0-2) /HPF Urine WBC (0-5) /HPF Salicylates (15-30) mg/dL 11/12/22 11/12/22 11/12/22 Range/Units 19:29 22:17 23:28 WBC (4.8-10.8) X10*3/uL RBC (4.60-5.80) X10*6/uL Hgb (14.0-18.0) g/dl Hct (42.0-52.0) % MCHC (31.0-36.0) g/dl Immature Gran % (Auto) (0.0-0.4) % Neut % (Auto) (45-73) % Lymph % (Auto) (20-40) % Lymph # (Auto) (1.2-4.9) X10*3/uL Abs Immat Gran (auto) (0.00-0.03) X10*3/uL Absolute Neuts (auto) (2.0-8.3) x10*3/uL PT (10.0-13.1) SEC INR (0.9-1.1) BUN (9-16) mg/dL Creatinine (0.5-1.4) mg/dL POC Glucose (60-115) mg/dL Random Glucose (60-115) mg/dL Lactic Acid 3.4 H* (0.5-2.0) mmol/L Lactic Acid F/U @ 2Hr 2.3 H* (0.5-2.0) mmol/L Lactic Acid F/U @ 4Hr (0.5-2.0) mmol/L Calcium (8.4-10.2) mg/dL Total Bilirubin (0.0-1.0) mg/dL AST (5-37) U/L ALT (0-40) U/L Alkaline Phosphatase (39-117) U/L Troponin I High Sens 936.2 H* D (<3.5-35.0) ng/L Total Protein (6.5-8.0) g/dL Albumin (3.5-5.0) g/dL Urine Blood (Negative) Urine Nitrite (Negative) Ur Leukocyte Esterase (Negative) Urine RBC (0-2) /HPF Urine WBC (0-5) /HPF Salicylates (15-30) mg/dL 11/13/22 11/13/22 11/13/22 Range/Units 00:41 02:03 02:03 WBC 18.4 H (4.8-10.8) X10*3/uL RBC 3.43 L (4.60-5.80) X10*6/uL Hgb 9.5 L (14.0-18.0) g/dl Hct 29.6 L (42.0-52.0) % MCHC (31.0-36.0) g/dl Immature Gran % (Auto) (0.0-0.4) % Neut % (Auto) (45-73) % Lymph % (Auto) (20-40) % Lymph # (Auto) (1.2-4.9) X10*3/uL Abs Immat Gran (auto) (0.00-0.03) X10*3/uL Absolute Neuts (auto) (2.0-8.3) x10*3/uL PT (10.0-13.1) SEC INR (0.9-1.1) BUN 21 H (9-16) mg/dL Creatinine (0.5-1.4) mg/dL POC Glucose (60-115) mg/dL Random Glucose 151 H (60-115) mg/dL Lactic Acid (0.5-2.0) mmol/L Lactic Acid F/U @ 2Hr (0.5-2.0) mmol/L Lactic Acid F/U @ 4Hr 2.1 H* (0.5-2.0) mmol/L Calcium 7.9 L D (8.4-10.2) mg/dL Total Bilirubin 3.7 H (0.0-1.0) mg/dL AST 304 H (5-37) U/L ALT 447 H (0-40) U/L Alkaline Phosphatase 180 H (39-117) U/L Troponin I High Sens (<3.5-35.0) ng/L Total Protein 5.0 L (6.5-8.0) g/dL Albumin 3.0 L (3.5-5.0) g/dL Urine Blood (Negative) Urine Nitrite (Negative) Ur Leukocyte Esterase (Negative) Urine RBC (0-2) /HPF Urine WBC (0-5) /HPF Salicylates < 5.0 L (15-30) mg/dL 11/13/22 11/13/22 11/13/22 Range/Units 02:03 05:30 07:01 WBC 17.9 H (4.8-10.8) X10*3/uL RBC 3.89 L (4.60-5.80) X10*6/uL Hgb 10.6 L (14.0-18.0) g/dl Hct 34.6 L (42.0-52.0) % MCHC 30.6 L (31.0-36.0) g/dl Immature Gran % (Auto) 0.5 H (0.0-0.4) % Neut % (Auto) 85.6 H (45-73) % Lymph % (Auto) 8.0 L (20-40) % Lymph # (Auto) (1.2-4.9) X10*3/uL Abs Immat Gran (auto) 0.09 H (0.00-0.03) X10*3/uL Absolute Neuts (auto) 15.3 H (2.0-8.3) x10*3/uL PT 13.7 H (10.0-13.1) SEC INR 1.2 H (0.9-1.1) BUN (9-16) mg/dL Creatinine (0.5-1.4) mg/dL POC Glucose (60-115) mg/dL Random Glucose (60-115) mg/dL Lactic Acid (0.5-2.0) mmol/L Lactic Acid F/U @ 2Hr (0.5-2.0) mmol/L Lactic Acid F/U @ 4Hr (0.5-2.0) mmol/L Calcium (8.4-10.2) mg/dL Total Bilirubin (0.0-1.0) mg/dL AST (5-37) U/L ALT (0-40) U/L Alkaline Phosphatase (39-117) U/L Troponin I High Sens 3217.8 H* D (<3.5-35.0) ng/L Total Protein (6.5-8.0) g/dL Albumin (3.5-5.0) g/dL Urine Blood (Negative) Urine Nitrite (Negative) Ur Leukocyte Esterase (Negative) Urine RBC (0-2) /HPF Urine WBC (0-5) /HPF Salicylates (15-30) mg/dL 11/13/22 11/13/22 Range/Units 07:11 08:01 WBC (4.8-10.8) X10*3/uL RBC (4.60-5.80) X10*6/uL Hgb (14.0-18.0) g/dl Hct (42.0-52.0) % MCHC (31.0-36.0) g/dl Immature Gran % (Auto) (0.0-0.4) % Neut % (Auto) (45-73) % Lymph % (Auto) (20-40) % Lymph # (Auto) (1.2-4.9) X10*3/uL Abs Immat Gran (auto) (0.00-0.03) X10*3/uL Absolute Neuts (auto) (2.0-8.3) x10*3/uL PT (10.0-13.1) SEC INR (0.9-1.1) BUN (9-16) mg/dL Creatinine (0.5-1.4) mg/dL POC Glucose 155 H (60-115) mg/dL Random Glucose (60-115) mg/dL Lactic Acid (0.5-2.0) mmol/L Lactic Acid F/U @ 2Hr (0.5-2.0) mmol/L Lactic Acid F/U @ 4Hr (0.5-2.0) mmol/L Calcium (8.4-10.2) mg/dL Total Bilirubin (0.0-1.0) mg/dL AST (5-37) U/L ALT (0-40) U/L Alkaline Phosphatase (39-117) U/L Troponin I High Sens (<3.5-35.0) ng/L Total Protein (6.5-8.0) g/dL Albumin (3.5-5.0) g/dL Urine Blood Small (1+) H (Negative) Urine Nitrite Positive H (Negative) Ur Leukocyte Esterase Moderate (2+) H (Negative) Urine RBC >20 H (0-2) /HPF Urine WBC 11-20 H (0-5) /HPF Salicylates (15-30) mg/dL Short CBC 11/12/22 11/13/22 11/13/22 Range/Units 19:29 02:03 05:30 WBC 15.6 H 18.4 H 17.9 H (4.8-10.8) X10*3/uL Hgb 11.5 L 9.5 L 10.6 L (14.0-18.0) g/dl Hct 36.0 L 29.6 L 34.6 L (42.0-52.0) % Plt Count 233 209 217 (160-400) X10*3/uL BMP 11/12/22 11/13/22 19:29 02:03 Sodium 137 140 Potassium 4.4 4.4 Chloride 102 108 Carbon Dioxide 24 22 BUN 22 H 21 H Creatinine 1.49 H 1.40 Calcium 9.1 7.9 L D Liver Function 11/12/22 11/13/22 Range/Units 19:29 02:03 Total Bilirubin 4.5 H 3.7 H (0.0-1.0) mg/dL AST 569 H 304 H (5-37) U/L ALT 595 H 447 H (0-40) U/L Alkaline Phosphatase 236 H 180 H (39-117) U/L Albumin 3.8 3.0 L (3.5-5.0) g/dL Urine 11/13/22 Range/Units 08:01 Urine Color Dark Yellow Urine Appearance Clear Urine pH 6.5 (5.0-9.0) Ur Specific [place] 1.015 (1.005-1.025) Urine Protein Trace (Neg-Trace) mg/dL Urine Glucose (UA) Negative (Negative) mg/dL All other labs normal. <Erica Nguyen PA-C - Last Filed: 11/14/22 11:10> Imaging Abdomen CT scan report/results: report reviewed and image reviewed <Erica Nguyen PA-C - Last Filed: 11/14/22 11:10> Assessment and Plan (1) Gallbladder sludge: Status: Acute <Erica Nguyen PA-C - Last Filed: 11/14/22 11:10> Clinically, does not have acute cholecystitis No significant tenderness, no Chicas's sign Denies history of abdominal pain Has multiple other acute medical issues including non STEMI, urinary retention UA suggestive of urinary tract infection Abdomen soft and benign Bilirubin elevated CT scan does not suggest CBD obstruction Trend LFTs May need MRCP if with persistent elevated LFTs Seen and examined independently <Jameson Hernandez MD - Last Filed: 11/13/22 10:03> (2) Transaminitis: Status: Acute <Erica Nguyen PA-C - Last Filed: 11/14/22 11:10> (3) Sepsis: Status: Acute <YURI Mac Last Filed: 11/14/22 11:10> (4) Non-ST elevation CT (NSTEMI): Status: Acute <Erica Nguyen PA-C - Last Filed: 11/14/22 11:10> (5) Urinary tract infection: Status: Acute <YURI Mac Last Filed: 11/14/22 11:10> 72 year old male with multiple medical comorbidities admitted for nSTEMI and sepsis. Urinalysis positive. Clinically unlikely to have acute cholecystitis. He denies abd pain and has a very benign abdomen on exam with only very mild RUQ tenderness to deep palpation and with no significant GB inflammatory changes on imaging. The mild wall thickening seen may be reactive. Sepsis source likely to be UTI. If he develops RUQ pain or does not improve/worsens, can obtain HIDA to definitively r/o acute cholecystitis and if this were positive cholecystostomy tube would likely be next step given nSTEMI and multiple medical comorbidities. Case discussed with Dr. Hernandez. <Erica Nguyen PA-C - Last Filed: 11/14/22 11:10> Time Spent With Patient Time: Total time managing care of this patient today ____ minutes. <YURI Mac Last Filed: 11/14/22 11:10> Procedures Date of Service Date of Service: 11/14/22 <YURI Mac Last Filed: 11/14/22 11:10>
--- NOTE | 2022-11-13 10:16 | P.PNIM_ITS ---
Subjective Subjective Date of Service: 11/13/22 Interval History: had some chest discomfort, improved, some ruq discomfort, some suprapubic discomfort Physical Exam Vital Signs: Vital Signs: Last Vital Signs Temp 97.1 F 11/13/22 07:13 Pulse 78 11/13/22 07:13 Resp 18 11/13/22 07:13 BP 128/58 L 11/13/22 07:13 Pulse Ox 92 11/13/22 07:13 O2 Del Method Room Air 11/13/22 07:13 O2 Flow Rate 2 11/13/22 01:56 Oxygen Flow Rate 2 11/12/22 19:02 BMI result Body Mass Index 31.6 alert, oriented times 3, no acute distress +ruq tenderness Objective Data Active Medications Amitriptyline HCl (Amitriptyline Hcl 50 Mg Tablet) 50 mg PO BEDTIME [facility]ICA Amlodipine Besylate (Amlodipine Besylate 10 Mg Tablet) 10 mg PO DAILY [facility]; Protocol Last Admin: 11/13/22 08:50 Dose: 10 mg Documented By: ALICE Atorvastatin Calcium (Atorvastatin Calcium 40 Mg Tablet) 40 mg PO DAILY [facility] Last Admin: 11/13/22 08:50 Dose: 40 mg Documented By: ALICE Diazepam (Diazepam 5 Mg Tablet) 5 mg PO TID RICA Last Admin: 11/13/22 08:50 Dose: 5 mg Documented By: ALICE Docusate Sodium (Docusate Sodium 100 Mg Capsule) 100 mg PO DAILY PRN PRN Reason: Constipation Enoxaparin Sodium (Enoxaparin Sodium 100 Mg/Ml Syringe) 90 mg 1 mg/kg (90 mg) SUBCUT Q12H [facility] Famotidine (Famotidine 20 Mg Tablet) 20 mg PO BEDTIME RICA Finasteride (Finasteride 5 Mg Tablet) 5 mg PO DAILY [facility] Furosemide (Furosemide 40 Mg Tablet) 40 mg PO DAILY [facility]; Protocol Last Admin: 11/13/22 08:50 Dose: 40 mg Documented By: ALICE Gabapentin (Gabapentin 100 Mg Capsule) 200 mg PO BID RICA Last Admin: 11/13/22 08:52 Dose: 200 mg Documented By: ALICE Glucose (Glucose Gel 15 Gm Gel..Gram.) 15 gm PO Q15M PRN; Protocol PRN Reason: per Hypoglycemia Standing Ord. Piperacillin Sod/Tazobactam (Sod 3.375 gm/ Sodium Chloride) 50 mls @ 12.5 mls/hr IV Q8H [facility] Last Infusion: 11/13/22 06:21 Dose: 0 mls/hr Documented By: TJ Lactated Ringer's (Lr) 500 mls @ 20 mls/hr IVCONT .Q24H [facility] Last Admin: 11/13/22 02:17 Dose: 20 mls/hr Documented By: JENNIE Dextrose (D10) 250 mls @ 750 mls/hr IV Q15M PRN; Protocol PRN Reason: per Hypoglycemia Standing Ord. Insulin Human Lispro (Insulin Lispro 100 Unit/Ml 3 Ml Vial) 0 unit SUBCUT QIDACHS [facility]; Protocol Last Admin: 11/13/22 10:04 Dose: Not Given Documented By: ALICE Non-Admin Reason: NPO Ondansetron HCl (Ondansetron Hcl 4 Mg/2 Ml Vial) 4 mg IVPUSH Q8H PRN PRN Reason: Nausea and Vomiting Paroxetine HCl (Paroxetine Hcl 10 Mg Tablet) 10 mg PO DAILY [facility] Polyethylene Glycol (Polyethylene Glycol 3350 17 Gm Powd.Pack) 17 gm PO DAILY [facility] Last Admin: 11/13/22 08:50 Dose: 17 gm Documented By: ALICE Senna/Docusate Sodium (Sennosides/Docusate Sodium Tablet) 2 tab PO BEDTIME [facility] Sodium Chloride (0.9 % Sodium Chloride Flush 3 Ml Syringe) 3 ml IVFLUSH QSHIFT [facility] Tamsulosin HCl (Tamsulosin Hcl 0.4 Mg Capsule) 0.4 mg PO BEDTIME [facility] Vitamin D (Cholecalciferol (Vitamin D3) 25 Mcg Tablet) 50 mcg PO DAILY [facility] Last Admin: 11/13/22 08:51 Dose: 50 mcg Documented By: ALICE Labs 11/13/22 05:30 11/13/22 02:03 Labs: Laboratory Results - last 24 hr 11/12/22 11/12/22 11/12/22 19:29 19:29 19:29 MCV 84.9 MCH 27.1 MCHC 31.9 RDW 15.0 Plt Count 233 MPV 9.7 Immature Gran % (Auto) 0.3 Neut % (Auto) 90.4 H Lymph % (Auto) 2.2 L [place] % (Auto) 6.6 Eos % (Auto) 0.2 Baso % (Auto) 0.3 Lymph # (Auto) 0.4 L [place] # (Auto) 1.0 Eos # (Auto) 0.0 Baso # (Auto) 0.0 Abs Immat Gran (auto) 0.05 H Absolute Neuts (auto) 14.1 H Absolute Nucleated RBC 0.000 Nucleated RBC % (auto) 0.0 Smear Tech's Comments VERIFIED PT INR APTT Anion Gap 15 Estim Creat Clear Calc 49.1 Estimated GFR 46 POC Glucose Random Glucose 184 H Lactic Acid Lactic Acid F/U @ 2Hr Lactic Acid F/U @ 4Hr Calcium 9.1 Magnesium 1.8 Total Bilirubin 4.5 H AST 569 H ALT 595 H Alkaline Phosphatase 236 H Troponin I High Sens 244.4 H* B-Natriuretic Peptide Total Protein 6.2 L Albumin 3.8 Urine Color Urine Appearance Urine pH Ur Specific [place] Urine Protein Urine Glucose (UA) Urine Ketones Urine Blood Urine Nitrite Ur Leukocyte Esterase Urine RBC Urine WBC Ur Squamous Epith Cells Urine Bacteria Hyaline Casts Salicylates Acetaminophen Hepatitis A IgM Ab Hep Bs Antigen Hep Bs Antibody Hep B Core Total Ab Hepatitis C Ab (EIA) Influenza Type A (PCR) Influenza Type B (PCR) RSV RNA Qual (PCR) SARS-CoV-2 RNA (RT-PCR) 11/12/22 11/12/22 11/12/22 19:29 19:29 19:34 MCV MCH MCHC RDW Plt Count MPV Immature Gran % (Auto) Neut % (Auto) Lymph % (Auto) [place] % (Auto) Eos % (Auto) Baso % (Auto) Lymph # (Auto) [place] # (Auto) Eos # (Auto) Baso # (Auto) Abs Immat Gran (auto) Absolute Neuts (auto) Absolute Nucleated RBC Nucleated RBC % (auto) Smear Tech's Comments PT INR APTT Anion Gap Estim Creat Clear Calc Estimated GFR POC Glucose Random Glucose Lactic Acid 3.4 H* Lactic Acid F/U @ 2Hr Lactic Acid F/U @ 4Hr Calcium Magnesium Total Bilirubin AST ALT Alkaline Phosphatase Troponin I High Sens B-Natriuretic Peptide 34 Total Protein Albumin Urine Color Urine Appearance Urine pH Ur Specific [place] Urine Protein Urine Glucose (UA) Urine Ketones Urine Blood Urine Nitrite Ur Leukocyte Esterase Urine RBC Urine WBC Ur Squamous Epith Cells Urine Bacteria Hyaline Casts Salicylates Acetaminophen Hepatitis A IgM Ab Hep Bs Antigen Hep Bs Antibody Hep B Core Total Ab Hepatitis C Ab (EIA) Influenza Type A (PCR) NEGATIVE Influenza Type B (PCR) NEGATIVE RSV RNA Qual (PCR) NEGATIVE SARS-CoV-2 RNA (RT-PCR) NEGATIVE 11/12/22 11/12/22 11/13/22 22:17 23:28 00:41 MCV MCH MCHC RDW Plt Count MPV Immature Gran % (Auto) Neut % (Auto) Lymph % (Auto) [place] % (Auto) Eos % (Auto) Baso % (Auto) Lymph # (Auto) [place] # (Auto) Eos # (Auto) Baso # (Auto) Abs Immat Gran (auto) Absolute Neuts (auto) Absolute Nucleated RBC Nucleated RBC % (auto) Smear Tech's Comments PT INR APTT Anion Gap Estim Creat Clear Calc Estimated GFR POC Glucose Random Glucose Lactic Acid Lactic Acid F/U @ 2Hr 2.3 H* Lactic Acid F/U @ 4Hr 2.1 H* Calcium Magnesium Total Bilirubin AST ALT Alkaline Phosphatase Troponin I High Sens 936.2 H* D B-Natriuretic Peptide Total Protein Albumin Urine Color Urine Appearance Urine pH Ur Specific [place] Urine Protein Urine Glucose (UA) Urine Ketones Urine Blood Urine Nitrite Ur Leukocyte Esterase Urine RBC Urine WBC Ur Squamous Epith Cells Urine Bacteria Hyaline Casts Salicylates Acetaminophen Hepatitis A IgM Ab Hep Bs Antigen Hep Bs Antibody Hep B Core Total Ab Hepatitis C Ab (EIA) Influenza Type A (PCR) Influenza Type B (PCR) RSV RNA Qual (PCR) SARS-CoV-2 RNA (RT-PCR) 11/13/22 11/13/22 11/13/22 02:03 02:03 02:03 MCV 86.3 MCH 27.7 MCHC 32.1 RDW 15.4 Plt Count 209 MPV 9.5 Immature Gran % (Auto) Neut % (Auto) Lymph % (Auto) [place] % (Auto) Eos % (Auto) Baso % (Auto) Lymph # (Auto) [place] # (Auto) Eos # (Auto) Baso # (Auto) Abs Immat Gran (auto) Absolute Neuts (auto) Absolute Nucleated RBC 0.000 Nucleated RBC % (auto) 0.0 Smear Tech's Comments PT INR APTT Anion Gap 14 Estim Creat Clear Calc 52.3 Estimated GFR 50 POC Glucose Random Glucose 151 H Lactic Acid Lactic Acid F/U @ 2Hr Lactic Acid F/U @ 4Hr Calcium 7.9 L D Magnesium Total Bilirubin 3.7 H AST 304 H ALT 447 H Alkaline Phosphatase 180 H Troponin I High Sens B-Natriuretic Peptide Total Protein 5.0 L Albumin 3.0 L Urine Color Urine Appearance Urine pH Ur Specific [place] Urine Protein Urine Glucose (UA) Urine Ketones Urine Blood Urine Nitrite Ur Leukocyte Esterase Urine RBC Urine WBC Ur Squamous Epith Cells Urine Bacteria Hyaline Casts Salicylates < 5.0 L Acetaminophen < 17 Hepatitis A IgM Ab Nonreactive Hep Bs Antigen Negative Hep Bs Antibody NONREACTIVE Hep B Core Total Ab Nonreactive Hepatitis C Ab (EIA) Nonreactive Influenza Type A (PCR) Influenza Type B (PCR) RSV RNA Qual (PCR) SARS-CoV-2 RNA (RT-PCR) 11/13/22 11/13/22 11/13/22 02:03 05:30 07:01 MCV 88.9 MCH 27.2 MCHC 30.6 L RDW 15.5 Plt Count 217 MPV 9.9 Immature Gran % (Auto) 0.5 H Neut % (Auto) 85.6 H Lymph % (Auto) 8.0 L [place] % (Auto) 5.3 Eos % (Auto) 0.3 Baso % (Auto) 0.3 Lymph # (Auto) 1.4 [place] # (Auto) 0.9 Eos # (Auto) 0.1 Baso # (Auto) 0.1 Abs Immat Gran (auto) 0.09 H Absolute Neuts (auto) 15.3 H Absolute Nucleated RBC 0.000 Nucleated RBC % (auto) 0.0 Smear Tech's Comments PT 13.7 H INR 1.2 H APTT 29.2 Anion Gap Estim Creat Clear Calc Estimated GFR POC Glucose Random Glucose Lactic Acid 1.7 Lactic Acid F/U @ 2Hr Lactic Acid F/U @ 4Hr Calcium Magnesium Total Bilirubin AST ALT Alkaline Phosphatase Troponin I High Sens B-Natriuretic Peptide Total Protein Albumin Urine Color Urine Appearance Urine pH Ur Specific [place] Urine Protein Urine Glucose (UA) Urine Ketones Urine Blood Urine Nitrite Ur Leukocyte Esterase Urine RBC Urine WBC Ur Squamous Epith Cells Urine Bacteria Hyaline Casts Salicylates Acetaminophen Hepatitis A IgM Ab Hep Bs Antigen Hep Bs Antibody Hep B Core Total Ab Hepatitis C Ab (EIA) Influenza Type A (PCR) Influenza Type B (PCR) RSV RNA Qual (PCR) SARS-CoV-2 RNA (RT-PCR) 11/13/22 11/13/22 11/13/22 07:01 07:11 08:01 MCV MCH MCHC RDW Plt Count MPV Immature Gran % (Auto) Neut % (Auto) Lymph % (Auto) [place] % (Auto) Eos % (Auto) Baso % (Auto) Lymph # (Auto) [place] # (Auto) Eos # (Auto) Baso # (Auto) Abs Immat Gran (auto) Absolute Neuts (auto) Absolute Nucleated RBC Nucleated RBC % (auto) Smear Tech's Comments PT INR APTT Anion Gap Estim Creat Clear Calc Estimated GFR POC Glucose 155 H Random Glucose Lactic Acid Lactic Acid F/U @ 2Hr Lactic Acid F/U @ 4Hr Calcium Magnesium Total Bilirubin AST ALT Alkaline Phosphatase Troponin I High Sens 3217.8 H* D B-Natriuretic Peptide Total Protein Albumin Urine Color Dark Yellow Urine Appearance Clear Urine pH 6.5 Ur Specific [place] 1.015 Urine Protein Trace Urine Glucose (UA) Negative Urine Ketones Negative Urine Blood Small (1+) H Urine Nitrite Positive H Ur Leukocyte Esterase Moderate (2+) H Urine RBC >20 H Urine WBC 11-20 H Ur Squamous Epith Cells 0-2 Urine Bacteria 4+ Hyaline Casts 0-2 Salicylates Acetaminophen Hepatitis A IgM Ab Hep Bs Antigen Hep Bs Antibody Hep B Core Total Ab Hepatitis C Ab (EIA) Influenza Type A (PCR) Influenza Type B (PCR) RSV RNA Qual (PCR) SARS-CoV-2 RNA (RT-PCR) Assessment and Plan (1) Elevated LFTs: Status: Acute Plan 72-year-old male with past medical history of chronic heart failure with Preserved ejection fraction, chronic hypoxic respiratory failure due to COPD, type 2 diabetes, urinary retention, paroxysmal AFib, HTN, CAD?, history of etoh dependence, mood disorder, hepatic steatosis presented with chest pain, found to have sepsis, urinary retention, nstemi, elevated lfts sepsis due to acute cholecystitis vs UTI zosyn, surgery consult, follow up cultures urinary retention plan for oseguera in OR flomax NSTEMI lovenox 1mg/kg q12, asa, statin, cardio eval, echo monitor for peak trop (?type I or type II) DM insulin obeisty weight loss paroxysmal afib in sinus, not on AC or rate control at home full code reason for continued hospitalization: nstemi treatement Time Spent With Patient Time: Total time managing care of this patient today ____ minutes. Quality Stroke Does the patient have a stroke diagnosis?: No VTE Prior VTE?: No VTE Risk Level:: Medical - moderate - high VTE Device Contraindication: Treatment Not Indicated VTE Drug Contraindication: N/A - Med Ordered
[2022-11-13] MEDS: Finasteride 5 MG TABLET PO (10:18)
[2022-11-13] MEDS: PARoxetine HCL 10 MG TABLET PO (10:20)
--- NOTE | 2022-11-13 10:48 | MHC.CLN ---
NUTRITION ADDED CARDIAC TO DIET ORDER. DIET=DIABETIC 1800 KCAL, CARDIAC.
[2022-11-13 11:18] LABS: Glucose, Whole Blood 142 mg/dL (60-115)
--- NOTE | 2022-11-13 12:56 | MHC.CM.PN ---
IMM 11/13/22 Male 72 DX Sepsis Patient Lives @ [facility]. Patient is dependent with care. HCP is on file. Patient has been vaxxed for Covid. [facility]
--- NOTE | 2022-11-13 14:21 | PM.CNCAR ---
History of Present Illness History of Present Illness Date of Service: 11/13/22 Requesting physician: Christophe Mckinnon Chief complaint: + troponins. Narrative: 72-year-old gentleman is from a nursing facility and has background history of stroke affecting the right side of the body for which he has been wheelchair bound mostly. Quite frail and deconditioned. He is presenting for sharp left and right-sided chest pain which started yesterday. He also was found to be septic with fever and concern for gallbladder sludge and some concerns as there for cholecystitis too. In this setting he also had elevated high sensitivity troponin levels of 244, 936, 3217 and 3516. He underwent echocardiography which showed normal biventricular function without any obvious regional wall motion abnormalities. He has not had any further chest discomfort. The original chest pain was also sharp sensation on left and right side of the chest. He is saying it felt like a stabbing sensation. He has been started on vancomycin and Zosyn. He also has urinary retention and is being assessed by Urology. [facility] Past Medical History Medical History Abdomen enlarged Acute on chronic heart failure with preserved ejection fraction (HFpEF) Acute on chronic respiratory failure with hypoxia and hypercapnia Acute renal failure Acute respiratory failure with hypoxia Acute upper gastrointestinal bleeding Afib STIVEN (acute kidney injury) Altered mental status Aspiration pneumonitis Atypical pneumonia Borderline diabetic CHF exacerbation Congestive heart failure Hypertension Hyperthyroidism Hypoxia Ileus Multifocal pneumonia Myocardial infarct Partial obstruction of small intestine Pneumonia Pulmonary aspiration Sepsis associated hypotension Toxic metabolic encephalopathy Urinary catheter in place Urinary tract infection Social History Social History Household Members: None Housing: [facility] Do you presently have visiting nurse or other home services: No (private [facility]) Unable to assess alcohol history related to: Unknown Alcohol intake: former Patient Tobacco Use Status: Never used Tobacco Smoked in Last 30 Days: No Use of substances other than those prescribed or required for medical reasons: No Substance Use Type: Unknown Currently Displaying Signs/Symptoms of Drug Intoxication Withdrawal: No Any prior treatment program specific to substance use: No Have you been hit, kicked, punched, or otherwise hurt by someone within the past year? If so, by whom?: No Do you feel safe in your current relationship?: Yes Is there a partner from a previous relationship who is making you feel unsafe now?: No Are you made to feel afraid or neglected: No Advance Directives: Yes Advance Directives on File: Yes Advance Directives Date on File: 11/01/20 Do you have thoughts of harming others: None Do you have a plan to hurt others: No Plan Recently lost weight without trying: No How much weight loss: Not applicable Eating poorly because of decreased appetite: No Nutrition screen score: 0 Nutrition Risks: No Nutritional Risk Poor oral hygiene: No service: No Current occupational status: retired [employer] Allergies Allergy/AdvReac Type Severity Reaction Status Date / Time No Known Allergies Allergy Verified 11/13/22 05:12 [No Known Allergies*] Active Medications: Current Medications Amitriptyline HCl (Amitriptyline Hcl 50 Mg Tablet) 50 mg PO BEDTIME [facility] Amlodipine Besylate (Amlodipine Besylate 10 Mg Tablet) 10 mg PO DAILY [facility]; Protocol Last Admin: 11/13/22 08:50 Dose: 10 mg Aspirin (Aspirin Enteric Coated 81 Mg Tablet.Dr) 81 mg PO DAILY [facility] Atorvastatin Calcium (Atorvastatin Calcium 40 Mg Tablet) 40 mg PO DAILY [facility] Last Admin: 11/13/22 08:50 Dose: 40 mg Diazepam (Diazepam 5 Mg Tablet) 5 mg PO TID [facility] Last Admin: 11/13/22 08:50 Dose: 5 mg Docusate Sodium (Docusate Sodium 100 Mg Capsule) 100 mg PO DAILY PRN PRN Reason: Constipation Enoxaparin Sodium (Enoxaparin Sodium 100 Mg/Ml Syringe) 90 mg 1 mg/kg (90 mg) SUBCUT Q12H [facility] Last Admin: 11/13/22 13:29 Dose: 90 mg Famotidine (Famotidine 20 Mg Tablet) 20 mg PO BEDTIME [facility] Finasteride (Finasteride 5 Mg Tablet) 5 mg PO DAILY [facility] Last Admin: 11/13/22 10:18 Dose: 5 mg Furosemide (Furosemide 40 Mg Tablet) 40 mg PO DAILY [facility]; Protocol Last Admin: 11/13/22 08:50 Dose: 40 mg Gabapentin (Gabapentin 100 Mg Capsule) 200 mg PO BID [facility] Last Admin: 11/13/22 08:52 Dose: 200 mg Glucose (Glucose Gel 15 Gm Gel..Gram.) 15 gm PO Q15M PRN; Protocol PRN Reason: per Hypoglycemia Standing Ord. Piperacillin Sod/Tazobactam (Sod 3.375 gm/ Sodium Chloride) 50 mls @ 12.5 mls/hr IV Q8H [facility] Last Admin: 11/13/22 11:47 Dose: 12.5 mls/hr Lactated Ringer's (Lr) 500 mls @ 20 mls/hr IVCONT .Q24H [facility] Last Admin: 11/13/22 02:17 Dose: 20 mls/hr Dextrose (D10) 250 mls @ 750 mls/hr IV Q15M PRN; Protocol PRN Reason: per Hypoglycemia Standing Ord. Insulin Human Lispro (Insulin Lispro 100 Unit/Ml 3 Ml Vial) 0 unit SUBCUT QIDACHS [facility]; Protocol Last Admin: 11/13/22 11:26 Dose: Not Given Ondansetron HCl (Ondansetron Hcl 4 Mg/2 Ml Vial) 4 mg IVPUSH Q8H PRN PRN Reason: Nausea and Vomiting Paroxetine HCl (Paroxetine Hcl 10 Mg Tablet) 10 mg PO DAILY [facility] Last Admin: 11/13/22 10:20 Dose: 10 mg Polyethylene Glycol (Polyethylene Glycol 3350 17 Gm Powd.Pack) 17 gm PO DAILY [facility] Last Admin: 11/13/22 08:50 Dose: 17 gm Senna/Docusate Sodium (Sennosides/Docusate Sodium Tablet) 2 tab PO BEDTIME [facility] Sodium Chloride (0.9 % Sodium Chloride Flush 3 Ml Syringe) 3 ml IVFLUSH QSHIFT [facility] Last Admin: 11/13/22 10:16 Dose: Not Given Tamsulosin HCl (Tamsulosin Hcl 0.4 Mg Capsule) 0.4 mg PO BEDTIME [facility] Vitamin D (Cholecalciferol (Vitamin D3) 25 Mcg Tablet) 50 mcg PO DAILY [facility] Last Admin: 11/13/22 08:51 Dose: 50 mcg Home Medications Medication Instructions Recorded Confirmed Last Taken Type atorvastatin 40 mg tablet 1 tab PO DAILY 10/18/20 11/13/22 Unknown History finasteride 5 mg tablet 1 tab PO DAILY 10/18/20 11/13/22 Unknown History losartan 100 mg tablet 1 tab PO DAILY 10/18/20 11/13/22 Unknown History tamsulosin 0.4 mg capsule 1 cap PO BEDTIME 10/18/20 11/13/22 Unknown History cholecalciferol (vitamin D3) 50 50 mcg PO DAILY 02/17/22 11/13/22 Unknown History mcg (2,000 unit) tablet gabapentin 100 mg capsule 200 mg PO BID 02/17/22 11/13/22 Unknown History paroxetine HCl 10 mg tablet 10 mg PO DAILY 02/17/22 11/13/22 Unknown History potassium chloride 10 mEq 10 meq PO DAILY 02/17/22 11/13/22 Unknown History tablet,extended release(part/cryst) sennosides 8.6 mg-docusate sodium 2 tab PO BEDTIME 02/17/22 11/13/22 Unknown History 50 mg tablet (Senna Plus) Probiotic 1 cap PO BID 11/13/22 11/13/22 Unknown History amitriptyline 50 mg tablet 50 mg PO BEDTIME 11/13/22 11/13/22 Unknown History diazepam 5 mg tablet 5 mg PO TID 11/13/22 11/13/22 Unknown History naproxen 500 mg tablet (Naprosyn) 500 mg PO Q12H PRN Pain 11/13/22 11/13/22 Unknown History omeprazole 20 mg capsule,delayed 20 mg PO DAILY 11/13/22 11/13/22 Unknown History release phenazopyridine 200 mg tablet 200 mg TID 11/13/22 11/13/22 Unknown History (Pyridium) Physical Exam Vital Signs: Vital Signs: Last Vital Signs Temp 97.1 F 11/13/22 07:13 Pulse 78 11/13/22 07:13 Resp 18 11/13/22 07:13 BP 128/58 L 11/13/22 07:13 Pulse Ox 92 11/13/22 07:13 O2 Del Method Room Air 11/13/22 07:13 O2 Flow Rate 2 11/13/22 01:56 Oxygen Flow Rate 2 11/12/22 19:02 BMI result Body Mass Index 31.6 GENERAL APPEARANCE: in no acute distress, pleasant. NECK: no carotid bruit, no jugular venous distention. SKIN: no suspicious lesions, warm and dry. HEART: no murmurs, regular rate and rhythm. LUNGS: clear to auscultation bilaterally. ABDOMEN: soft, nontender. EXTREMITIES: no edema. PERIPHERAL PULSES: equal. NEUROLOGIC: Right-sided hemiparesis, AAO X 3 Objective Labs and Meds 11/13/22 05:30 11/13/22 02:03 Lab results: Laboratory Results - last 24 hr 11/12/22 11/12/22 11/12/22 19:29 19:29 19:29 WBC 15.6 H RBC 4.24 L Hgb 11.5 L Hct 36.0 L MCV 84.9 MCH 27.1 MCHC 31.9 RDW 15.0 Plt Count 233 MPV 9.7 Immature Gran % (Auto) 0.3 Neut % (Auto) 90.4 H Lymph % (Auto) 2.2 L [place] % (Auto) 6.6 Eos % (Auto) 0.2 Baso % (Auto) 0.3 Lymph # (Auto) 0.4 L [place] # (Auto) 1.0 Eos # (Auto) 0.0 Baso # (Auto) 0.0 Abs Immat Gran (auto) 0.05 H Absolute Neuts (auto) 14.1 H Absolute Nucleated RBC 0.000 Nucleated RBC % (auto) 0.0 Smear Tech's Comments VERIFIED PT INR APTT Sodium 137 Potassium 4.4 Chloride 102 Carbon Dioxide 24 Anion Gap 15 BUN 22 H Creatinine 1.49 H Estim Creat Clear Calc 49.1 Estimated GFR 46 POC Glucose Random Glucose 184 H Lactic Acid Lactic Acid F/U @ 2Hr Lactic Acid F/U @ 4Hr Calcium 9.1 Magnesium 1.8 Total Bilirubin 4.5 H AST 569 H ALT 595 H Alkaline Phosphatase 236 H Troponin I High Sens 244.4 H* B-Natriuretic Peptide Total Protein 6.2 L Albumin 3.8 Urine Color Urine Appearance Urine pH Ur Specific [place] Urine Protein Urine Glucose (UA) Urine Ketones Urine Blood Urine Nitrite Ur Leukocyte Esterase Urine RBC Urine WBC Ur Squamous Epith Cells Urine Bacteria Hyaline Casts Salicylates Acetaminophen Hepatitis A IgM Ab Hep Bs Antigen Hep Bs Antibody Hep B Core Total Ab Hepatitis C Ab (EIA) Influenza Type A (PCR) Influenza Type B (PCR) RSV RNA Qual (PCR) SARS-CoV-2 RNA (RT-PCR) 11/12/22 11/12/22 11/12/22 19:29 19:29 19:34 WBC RBC Hgb Hct MCV MCH MCHC RDW Plt Count MPV Immature Gran % (Auto) Neut % (Auto) Lymph % (Auto) [place] % (Auto) Eos % (Auto) Baso % (Auto) Lymph # (Auto) [place] # (Auto) Eos # (Auto) Baso # (Auto) Abs Immat Gran (auto) Absolute Neuts (auto) Absolute Nucleated RBC Nucleated RBC % (auto) Smear Tech's Comments PT INR APTT Sodium Potassium Chloride Carbon Dioxide Anion Gap BUN Creatinine Estim Creat Clear Calc Estimated GFR POC Glucose Random Glucose Lactic Acid 3.4 H* Lactic Acid F/U @ 2Hr Lactic Acid F/U @ 4Hr Calcium Magnesium Total Bilirubin AST ALT Alkaline Phosphatase Troponin I High Sens B-Natriuretic Peptide 34 Total Protein Albumin Urine Color Urine Appearance Urine pH Ur Specific [place] Urine Protein Urine Glucose (UA) Urine Ketones Urine Blood Urine Nitrite Ur Leukocyte Esterase Urine RBC Urine WBC Ur Squamous Epith Cells Urine Bacteria Hyaline Casts Salicylates Acetaminophen Hepatitis A IgM Ab Hep Bs Antigen Hep Bs Antibody Hep B Core Total Ab Hepatitis C Ab (EIA) Influenza Type A (PCR) NEGATIVE Influenza Type B (PCR) NEGATIVE RSV RNA Qual (PCR) NEGATIVE SARS-CoV-2 RNA (RT-PCR) NEGATIVE 11/12/22 11/12/22 11/13/22 22:17 23:28 00:41 WBC RBC Hgb Hct MCV MCH MCHC RDW Plt Count MPV Immature Gran % (Auto) Neut % (Auto) Lymph % (Auto) [place] % (Auto) Eos % (Auto) Baso % (Auto) Lymph # (Auto) [place] # (Auto) Eos # (Auto) Baso # (Auto) Abs Immat Gran (auto) Absolute Neuts (auto) Absolute Nucleated RBC Nucleated RBC % (auto) Smear Tech's Comments PT INR APTT Sodium Potassium Chloride Carbon Dioxide Anion Gap BUN Creatinine Estim Creat Clear Calc Estimated GFR POC Glucose Random Glucose Lactic Acid Lactic Acid F/U @ 2Hr 2.3 H* Lactic Acid F/U @ 4Hr 2.1 H* Calcium Magnesium Total Bilirubin AST ALT Alkaline Phosphatase Troponin I High Sens 936.2 H* D B-Natriuretic Peptide Total Protein Albumin Urine Color Urine Appearance Urine pH Ur Specific [place] Urine Protein Urine Glucose (UA) Urine Ketones Urine Blood Urine Nitrite Ur Leukocyte Esterase Urine RBC Urine WBC Ur Squamous Epith Cells Urine Bacteria Hyaline Casts Salicylates Acetaminophen Hepatitis A IgM Ab Hep Bs Antigen Hep Bs Antibody Hep B Core Total Ab Hepatitis C Ab (EIA) Influenza Type A (PCR) Influenza Type B (PCR) RSV RNA Qual (PCR) SARS-CoV-2 RNA (RT-PCR) 11/13/22 11/13/22 11/13/22 02:03 02:03 02:03 WBC 18.4 H RBC 3.43 L Hgb 9.5 L Hct 29.6 L MCV 86.3 MCH 27.7 MCHC 32.1 RDW 15.4 Plt Count 209 MPV 9.5 Immature Gran % (Auto) Neut % (Auto) Lymph % (Auto) [place] % (Auto) Eos % (Auto) Baso % (Auto) Lymph # (Auto) [place] # (Auto) Eos # (Auto) Baso # (Auto) Abs Immat Gran (auto) Absolute Neuts (auto) Absolute Nucleated RBC 0.000 Nucleated RBC % (auto) 0.0 Smear Tech's Comments PT INR APTT Sodium 140 Potassium 4.4 Chloride 108 Carbon Dioxide 22 Anion Gap 14 BUN 21 H Creatinine 1.40 Estim Creat Clear Calc 52.3 Estimated GFR 50 POC Glucose Random Glucose 151 H Lactic Acid Lactic Acid F/U @ 2Hr Lactic Acid F/U @ 4Hr Calcium 7.9 L D Magnesium Total Bilirubin 3.7 H AST 304 H ALT 447 H Alkaline Phosphatase 180 H Troponin I High Sens B-Natriuretic Peptide Total Protein 5.0 L Albumin 3.0 L Urine Color Urine Appearance Urine pH Ur Specific [place] Urine Protein Urine Glucose (UA) Urine Ketones Urine Blood Urine Nitrite Ur Leukocyte Esterase Urine RBC Urine WBC Ur Squamous Epith Cells Urine Bacteria Hyaline Casts Salicylates < 5.0 L Acetaminophen < 17 Hepatitis A IgM Ab Nonreactive Hep Bs Antigen Negative Hep Bs Antibody NONREACTIVE Hep B Core Total Ab Nonreactive Hepatitis C Ab (EIA) Nonreactive Influenza Type A (PCR) Influenza Type B (PCR) RSV RNA Qual (PCR) SARS-CoV-2 RNA (RT-PCR) 11/13/22 11/13/22 11/13/22 02:03 05:30 07:01 WBC 17.9 H RBC 3.89 L Hgb 10.6 L Hct 34.6 L MCV 88.9 MCH 27.2 MCHC 30.6 L RDW 15.5 Plt Count 217 MPV 9.9 Immature Gran % (Auto) 0.5 H Neut % (Auto) 85.6 H Lymph % (Auto) 8.0 L [place] % (Auto) 5.3 Eos % (Auto) 0.3 Baso % (Auto) 0.3 Lymph # (Auto) 1.4 [place] # (Auto) 0.9 Eos # (Auto) 0.1 Baso # (Auto) 0.1 Abs Immat Gran (auto) 0.09 H Absolute Neuts (auto) 15.3 H Absolute Nucleated RBC 0.000 Nucleated RBC % (auto) 0.0 Smear Tech's Comments PT 13.7 H INR 1.2 H APTT 29.2 Sodium Potassium Chloride Carbon Dioxide Anion Gap BUN Creatinine Estim Creat Clear Calc Estimated GFR POC Glucose Random Glucose Lactic Acid 1.7 Lactic Acid F/U @ 2Hr Lactic Acid F/U @ 4Hr Calcium Magnesium Total Bilirubin AST ALT Alkaline Phosphatase Troponin I High Sens B-Natriuretic Peptide Total Protein Albumin Urine Color Urine Appearance Urine pH Ur Specific [place] Urine Protein Urine Glucose (UA) Urine Ketones Urine Blood Urine Nitrite Ur Leukocyte Esterase Urine RBC Urine WBC Ur Squamous Epith Cells Urine Bacteria Hyaline Casts Salicylates Acetaminophen Hepatitis A IgM Ab Hep Bs Antigen Hep Bs Antibody Hep B Core Total Ab Hepatitis C Ab (EIA) Influenza Type A (PCR) Influenza Type B (PCR) RSV RNA Qual (PCR) SARS-CoV-2 RNA (RT-PCR) 11/13/22 11/13/22 11/13/22 07:01 07:11 08:01 WBC RBC Hgb Hct MCV MCH MCHC RDW Plt Count MPV Immature Gran % (Auto) Neut % (Auto) Lymph % (Auto) [place] % (Auto) Eos % (Auto) Baso % (Auto) Lymph # (Auto) [place] # (Auto) Eos # (Auto) Baso # (Auto) Abs Immat Gran (auto) Absolute Neuts (auto) Absolute Nucleated RBC Nucleated RBC % (auto) Smear Tech's Comments PT INR APTT Sodium Potassium Chloride Carbon Dioxide Anion Gap BUN Creatinine Estim Creat Clear Calc Estimated GFR POC Glucose 155 H Random Glucose Lactic Acid Lactic Acid F/U @ 2Hr Lactic Acid F/U @ 4Hr Calcium Magnesium Total Bilirubin AST ALT Alkaline Phosphatase Troponin I High Sens 3217.8 H* D B-Natriuretic Peptide Total Protein Albumin Urine Color Dark Yellow Urine Appearance Clear Urine pH 6.5 Ur Specific [place] 1.015 Urine Protein Trace Urine Glucose (UA) Negative Urine Ketones Negative Urine Blood Small (1+) H Urine Nitrite Positive H Ur Leukocyte Esterase Moderate (2+) H Urine RBC >20 H Urine WBC 11-20 H Ur Squamous Epith Cells 0-2 Urine Bacteria 4+ Hyaline Casts 0-2 Salicylates Acetaminophen Hepatitis A IgM Ab Hep Bs Antigen Hep Bs Antibody Hep B Core Total Ab Hepatitis C Ab (EIA) Influenza Type A (PCR) Influenza Type B (PCR) RSV RNA Qual (PCR) SARS-CoV-2 RNA (RT-PCR) 11/13/22 11/13/22 10:33 11:12 WBC RBC Hgb Hct MCV MCH MCHC RDW Plt Count MPV Immature Gran % (Auto) Neut % (Auto) Lymph % (Auto) [place] % (Auto) Eos % (Auto) Baso % (Auto) Lymph # (Auto) [place] # (Auto) Eos # (Auto) Baso # (Auto) Abs Immat Gran (auto) Absolute Neuts (auto) Absolute Nucleated RBC Nucleated RBC % (auto) Smear Tech's Comments PT INR APTT Sodium Potassium Chloride Carbon Dioxide Anion Gap BUN Creatinine Estim Creat Clear Calc Estimated GFR POC Glucose 142 H Random Glucose Lactic Acid Lactic Acid F/U @ 2Hr Lactic Acid F/U @ 4Hr Calcium Magnesium Total Bilirubin AST ALT Alkaline Phosphatase Troponin I High Sens 3516.0 H* B-Natriuretic Peptide Total Protein Albumin Urine Color Urine Appearance Urine pH Ur Specific [place] Urine Protein Urine Glucose (UA) Urine Ketones Urine Blood Urine Nitrite Ur Leukocyte Esterase Urine RBC Urine WBC Ur Squamous Epith Cells Urine Bacteria Hyaline Casts Salicylates Acetaminophen Hepatitis A IgM Ab Hep Bs Antigen Hep Bs Antibody Hep B Core Total Ab Hepatitis C Ab (EIA) Influenza Type A (PCR) Influenza Type B (PCR) RSV RNA Qual (PCR) SARS-CoV-2 RNA (RT-PCR) Imaging Radiologist's impression: Impressions Chest X-Ray 11/12/22 20:34 IMPRESSION: 1. Few streaky left basilar opacities may reflect atelectasis. 2. Persistent elevation of the right hemidiaphragm. Abdomen/Pelvis CT 11/12/22 21:36 IMPRESSION: * Intermediate density material layering within the gallbladder, unclear if this could reflect noncalcified stones, sludge or gallbladder wall thickening, recommend correlation with nonemergent right upper quadrant ultrasound. There are no findings to suggest acute cholecystitis. * Urinary bladder is distended. Few foci of gas within the bladder lumen recommend correlation with any history of instrumentation. * Hepatic steatosis. Borderline enlarged portacaval node present since 2020 and only slightly increased in size may be reactive in setting of underlying liver disease. Abdomen Ultrasound 11/13/22 00:34 IMPRESSION: * Cholelithiasis and gallbladder sludge. There is mild gallbladder wall thickening, which is nonspecific. No pericholecystic fluid or sonographic Chicas sign to suggest cholecystitis. * Hepatic steatosis. Assessment and Plan (1) Elevated LFTs: Status: Acute (2) Urinary retention: Status: Acute (3) Non-ST elevation NE (NSTEMI): Status: Acute (4) Gallbladder sludge: Status: Acute Plan 72-year-old gentleman who is presenting for atypical chest pain which was sharp in character which started on the left side and then moved to the right side of the chest with elevation of cardiac troponin. He is also found to be septic and is on broad-spectrum antibiotics. There is some gallbladder sludge as well as elevated liver enzymes. High sensitive troponin levels are peaked at 3500. He is denying any symptoms. EKGs showing old inferior Q-waves but no dynamic changes are noticed. Echocardiography also is not showing any obvious issues. Clinically he is stable appearing. Blood pressure control is good. On Lovenox for anticoagulation. He has urine retention and currently has more than 600 mL in his urinary bladder and will require urology input. I think his hard to know whether this is a type 1 or type 2 event but given his fever and leukocytosis it is likely that he has sepsis and troponin rise is due to sepsis. If he has no bleeding concerns currently and does not bleed with the Witt catheter placement then I would consider giving him Lovenox for 48 hours. Baby aspirin is also reasonable to continue. Once he stabilized and we will consider whether we should do ischemic evaluation while in the hospital or can return home when doing this as outpatient. Thank you for allowing me to participate in the care of your patient. Please feel free to contact me if you have any questions. Time Spent With Patient Time: Total time managing care of this patient today ____ minutes. Procedures Date of Service Date of Service: 11/13/22
[2022-11-13 16:00] VITALS: BP 131/61; PULSE 88; RESP 17; TEMP 36.7; O2SAT 93
[2022-11-13 16:56] LABS: Glucose, Whole Blood 155 mg/dL (60-115)
--- NOTE | 2022-11-13 18:20 | P.PNUR_ITS ---
Subjective Subjective Date of Service: 11/13/22 Interval history: unable to place Oseguera catheter this morning Suprapubic tube placed Bladder scan for 600 cc with of overflow incontinence during the day Physical Exam Vital Signs: Vital Signs: Last Vital Signs Temp 98.1 F 11/13/22 16:00 Pulse 88 11/13/22 16:00 Resp 17 11/13/22 16:00 BP 131/61 11/13/22 16:00 Pulse Ox 93 11/13/22 16:00 O2 Del Method Room Air 11/13/22 16:00 O2 Flow Rate 2 11/13/22 01:56 Oxygen Flow Rate 2 11/12/22 19:02 BMI result Body Mass Index 31.6 Const: General: cooperative, healthy appearing, comfortable and no acute distress Orientation/consciousness: patient oriented x3 HEENT: Face and sinus: Yes normal facial exam Mouth: moist mucous membranes Neck: Neck: Yes normal visual inspection, Yes full ROM and Yes trachea midline Chest: Chest palpation & inspection: normal inspection of the chest Resp: Effort & Inspection: normal respiratory effort, able to speak in complete sentences and no respiratory distress GI: Inspection: Yes normal to inspection Back/Spine/Pelvis: Cervical Spine: normal cervical lordosis Thoracic/Lumbar Spine: thoracic and lumbar spine normal to inspection Skin: General skin exam: no rashes or lesions noted Neuro: General: patient oriented x3, tone normal and moves all extremities Extrem: General: Yes normal to inspection and Yes capillary refill normal Urology Results Labs 11/13/22 05:30 11/13/22 02:03 Labs: Laboratory Results - last 24 hr 11/12/22 11/12/22 11/12/22 19:29 19:29 19:29 WBC 15.6 H RBC 4.24 L Hgb 11.5 L Hct 36.0 L MCV 84.9 MCH 27.1 MCHC 31.9 RDW 15.0 Plt Count 233 MPV 9.7 Immature Gran % (Auto) 0.3 Neut % (Auto) 90.4 H Lymph % (Auto) 2.2 L Ashley % (Auto) 6.6 Eos % (Auto) 0.2 Baso % (Auto) 0.3 Lymph # (Auto) 0.4 L Ashley # (Auto) 1.0 Eos # (Auto) 0.0 Baso # (Auto) 0.0 Abs Immat Gran (auto) 0.05 H Absolute Neuts (auto) 14.1 H Absolute Nucleated RBC 0.000 Nucleated RBC % (auto) 0.0 Smear Tech's Comments VERIFIED PT INR APTT Sodium 137 Potassium 4.4 Chloride 102 Carbon Dioxide 24 Anion Gap 15 BUN 22 H Creatinine 1.49 H Estim Creat Clear Calc 49.1 Estimated GFR 46 POC Glucose Random Glucose 184 H Lactic Acid Lactic Acid F/U @ 2Hr Lactic Acid F/U @ 4Hr Calcium 9.1 Magnesium 1.8 Total Bilirubin 4.5 H AST 569 H ALT 595 H Alkaline Phosphatase 236 H Troponin I High Sens 244.4 H* B-Natriuretic Peptide Total Protein 6.2 L Albumin 3.8 Urine Color Urine Appearance Urine pH Ur Specific [place] Urine Protein Urine Glucose (UA) Urine Ketones Urine Blood Urine Nitrite Ur Leukocyte Esterase Urine RBC Urine WBC Ur Squamous Epith Cells Urine Bacteria Hyaline Casts Salicylates Acetaminophen Hepatitis A IgM Ab Hep Bs Antigen Hep Bs Antibody Hep B Core Total Ab Hepatitis C Ab (EIA) Influenza Type A (PCR) Influenza Type B (PCR) RSV RNA Qual (PCR) SARS-CoV-2 RNA (RT-PCR) 11/12/22 11/12/22 11/12/22 19:29 19:29 19:34 WBC RBC Hgb Hct MCV MCH MCHC RDW Plt Count MPV Immature Gran % (Auto) Neut % (Auto) Lymph % (Auto) Ashley % (Auto) Eos % (Auto) Baso % (Auto) Lymph # (Auto) Ashley # (Auto) Eos # (Auto) Baso # (Auto) Abs Immat Gran (auto) Absolute Neuts (auto) Absolute Nucleated RBC Nucleated RBC % (auto) Smear Tech's Comments PT INR APTT Sodium Potassium Chloride Carbon Dioxide Anion Gap BUN Creatinine Estim Creat Clear Calc Estimated GFR POC Glucose Random Glucose Lactic Acid 3.4 H* Lactic Acid F/U @ 2Hr Lactic Acid F/U @ 4Hr Calcium Magnesium Total Bilirubin AST ALT Alkaline Phosphatase Troponin I High Sens B-Natriuretic Peptide 34 Total Protein Albumin Urine Color Urine Appearance Urine pH Ur Specific [place] Urine Protein Urine Glucose (UA) Urine Ketones Urine Blood Urine Nitrite Ur Leukocyte Esterase Urine RBC Urine WBC Ur Squamous Epith Cells Urine Bacteria Hyaline Casts Salicylates Acetaminophen Hepatitis A IgM Ab Hep Bs Antigen Hep Bs Antibody Hep B Core Total Ab Hepatitis C Ab (EIA) Influenza Type A (PCR) NEGATIVE Influenza Type B (PCR) NEGATIVE RSV RNA Qual (PCR) NEGATIVE SARS-CoV-2 RNA (RT-PCR) NEGATIVE 11/12/22 11/12/22 11/13/22 22:17 23:28 00:41 WBC RBC Hgb Hct MCV MCH MCHC RDW Plt Count MPV Immature Gran % (Auto) Neut % (Auto) Lymph % (Auto) Ashley % (Auto) Eos % (Auto) Baso % (Auto) Lymph # (Auto) Ashley # (Auto) Eos # (Auto) Baso # (Auto) Abs Immat Gran (auto) Absolute Neuts (auto) Absolute Nucleated RBC Nucleated RBC % (auto) Smear Tech's Comments PT INR APTT Sodium Potassium Chloride Carbon Dioxide Anion Gap BUN Creatinine Estim Creat Clear Calc Estimated GFR POC Glucose Random Glucose Lactic Acid Lactic Acid F/U @ 2Hr 2.3 H* Lactic Acid F/U @ 4Hr 2.1 H* Calcium Magnesium Total Bilirubin AST ALT Alkaline Phosphatase Troponin I High Sens 936.2 H* D B-Natriuretic Peptide Total Protein Albumin Urine Color Urine Appearance Urine pH Ur Specific [place] Urine Protein Urine Glucose (UA) Urine Ketones Urine Blood Urine Nitrite Ur Leukocyte Esterase Urine RBC Urine WBC Ur Squamous Epith Cells Urine Bacteria Hyaline Casts Salicylates Acetaminophen Hepatitis A IgM Ab Hep Bs Antigen Hep Bs Antibody Hep B Core Total Ab Hepatitis C Ab (EIA) Influenza Type A (PCR) Influenza Type B (PCR) RSV RNA Qual (PCR) SARS-CoV-2 RNA (RT-PCR) 11/13/22 11/13/22 11/13/22 02:03 02:03 02:03 WBC 18.4 H RBC 3.43 L Hgb 9.5 L Hct 29.6 L MCV 86.3 MCH 27.7 MCHC 32.1 RDW 15.4 Plt Count 209 MPV 9.5 Immature Gran % (Auto) Neut % (Auto) Lymph % (Auto) Ashley % (Auto) Eos % (Auto) Baso % (Auto) Lymph # (Auto) Ashley # (Auto) Eos # (Auto) Baso # (Auto) Abs Immat Gran (auto) Absolute Neuts (auto) Absolute Nucleated RBC 0.000 Nucleated RBC % (auto) 0.0 Smear Tech's Comments PT INR APTT Sodium 140 Potassium 4.4 Chloride 108 Carbon Dioxide 22 Anion Gap 14 BUN 21 H Creatinine 1.40 Estim Creat Clear Calc 52.3 Estimated GFR 50 POC Glucose Random Glucose 151 H Lactic Acid Lactic Acid F/U @ 2Hr Lactic Acid F/U @ 4Hr Calcium 7.9 L D Magnesium Total Bilirubin 3.7 H AST 304 H ALT 447 H Alkaline Phosphatase 180 H Troponin I High Sens B-Natriuretic Peptide Total Protein 5.0 L Albumin 3.0 L Urine Color Urine Appearance Urine pH Ur Specific [place] Urine Protein Urine Glucose (UA) Urine Ketones Urine Blood Urine Nitrite Ur Leukocyte Esterase Urine RBC Urine WBC Ur Squamous Epith Cells Urine Bacteria Hyaline Casts Salicylates < 5.0 L Acetaminophen < 17 Hepatitis A IgM Ab Nonreactive Hep Bs Antigen Negative Hep Bs Antibody NONREACTIVE Hep B Core Total Ab Nonreactive Hepatitis C Ab (EIA) Nonreactive Influenza Type A (PCR) Influenza Type B (PCR) RSV RNA Qual (PCR) SARS-CoV-2 RNA (RT-PCR) 11/13/22 11/13/22 11/13/22 02:03 05:30 07:01 WBC 17.9 H RBC 3.89 L Hgb 10.6 L Hct 34.6 L MCV 88.9 MCH 27.2 MCHC 30.6 L RDW 15.5 Plt Count 217 MPV 9.9 Immature Gran % (Auto) 0.5 H Neut % (Auto) 85.6 H Lymph % (Auto) 8.0 L Ashley % (Auto) 5.3 Eos % (Auto) 0.3 Baso % (Auto) 0.3 Lymph # (Auto) 1.4 Ashley # (Auto) 0.9 Eos # (Auto) 0.1 Baso # (Auto) 0.1 Abs Immat Gran (auto) 0.09 H Absolute Neuts (auto) 15.3 H Absolute Nucleated RBC 0.000 Nucleated RBC % (auto) 0.0 Smear Tech's Comments PT 13.7 H INR 1.2 H APTT 29.2 Sodium Potassium Chloride Carbon Dioxide Anion Gap BUN Creatinine Estim Creat Clear Calc Estimated GFR POC Glucose Random Glucose Lactic Acid 1.7 Lactic Acid F/U @ 2Hr Lactic Acid F/U @ 4Hr Calcium Magnesium Total Bilirubin AST ALT Alkaline Phosphatase Troponin I High Sens B-Natriuretic Peptide Total Protein Albumin Urine Color Urine Appearance Urine pH Ur Specific [place] Urine Protein Urine Glucose (UA) Urine Ketones Urine Blood Urine Nitrite Ur Leukocyte Esterase Urine RBC Urine WBC Ur Squamous Epith Cells Urine Bacteria Hyaline Casts Salicylates Acetaminophen Hepatitis A IgM Ab Hep Bs Antigen Hep Bs Antibody Hep B Core Total Ab Hepatitis C Ab (EIA) Influenza Type A (PCR) Influenza Type B (PCR) RSV RNA Qual (PCR) SARS-CoV-2 RNA (RT-PCR) 11/13/22 11/13/22 11/13/22 07:01 07:11 08:01 WBC RBC Hgb Hct MCV MCH MCHC RDW Plt Count MPV Immature Gran % (Auto) Neut % (Auto) Lymph % (Auto) Ashley % (Auto) Eos % (Auto) Baso % (Auto) Lymph # (Auto) Ashley # (Auto) Eos # (Auto) Baso # (Auto) Abs Immat Gran (auto) Absolute Neuts (auto) Absolute Nucleated RBC Nucleated RBC % (auto) Smear Tech's Comments PT INR APTT Sodium Potassium Chloride Carbon Dioxide Anion Gap BUN Creatinine Estim Creat Clear Calc Estimated GFR POC Glucose 155 H Random Glucose Lactic Acid Lactic Acid F/U @ 2Hr Lactic Acid F/U @ 4Hr Calcium Magnesium Total Bilirubin AST ALT Alkaline Phosphatase Troponin I High Sens 3217.8 H* D B-Natriuretic Peptide Total Protein Albumin Urine Color Dark Yellow Urine Appearance Clear Urine pH 6.5 Ur Specific [place] 1.015 Urine Protein Trace Urine Glucose (UA) Negative Urine Ketones Negative Urine Blood Small (1+) H Urine Nitrite Positive H Ur Leukocyte Esterase Moderate (2+) H Urine RBC >20 H Urine WBC 11-20 H Ur Squamous Epith Cells 0-2 Urine Bacteria 4+ Hyaline Casts 0-2 Salicylates Acetaminophen Hepatitis A IgM Ab Hep Bs Antigen Hep Bs Antibody Hep B Core Total Ab Hepatitis C Ab (EIA) Influenza Type A (PCR) Influenza Type B (PCR) RSV RNA Qual (PCR) SARS-CoV-2 RNA (RT-PCR) 11/13/22 11/13/22 11/13/22 10:33 11:12 16:39 WBC RBC Hgb Hct MCV MCH MCHC RDW Plt Count MPV Immature Gran % (Auto) Neut % (Auto) Lymph % (Auto) Ashley % (Auto) Eos % (Auto) Baso % (Auto) Lymph # (Auto) Ashley # (Auto) Eos # (Auto) Baso # (Auto) Abs Immat Gran (auto) Absolute Neuts (auto) Absolute Nucleated RBC Nucleated RBC % (auto) Smear Tech's Comments PT INR APTT Sodium Potassium Chloride Carbon Dioxide Anion Gap BUN Creatinine Estim Creat Clear Calc Estimated GFR POC Glucose 142 H 155 H Random Glucose Lactic Acid Lactic Acid F/U @ 2Hr Lactic Acid F/U @ 4Hr Calcium Magnesium Total Bilirubin AST ALT Alkaline Phosphatase Troponin I High Sens 3516.0 H* B-Natriuretic Peptide Total Protein Albumin Urine Color Urine Appearance Urine pH Ur Specific [place] Urine Protein Urine Glucose (UA) Urine Ketones Urine Blood Urine Nitrite Ur Leukocyte Esterase Urine RBC Urine WBC Ur Squamous Epith Cells Urine Bacteria Hyaline Casts Salicylates Acetaminophen Hepatitis A IgM Ab Hep Bs Antigen Hep Bs Antibody Hep B Core Total Ab Hepatitis C Ab (EIA) Influenza Type A (PCR) Influenza Type B (PCR) RSV RNA Qual (PCR) SARS-CoV-2 RNA (RT-PCR) Urology Procedures Other Procedure Other Procedure: PreOperative Diagnosis:?neurogenic bladder Post Operative Diagnosis:?neurogenic bladder Procedure:? 2. Suprapubic tube placement Surgeon: Dr Saurav Rogers Anesthesia:?Sedation plus local Indications for procedure: unable to place Oseguera catheter, cystoscopy at bedside had showed urethral stricture Procedure: area 2 finger the symphysis pubis was palpated and Betadine applie Local anesthetic was infiltrated subcutaneously. A small, 1cm horizontal incision was made.? A trocar introducer was advanced through the abdominal wall into the bladder. The obturator was removed and a 16 Fr oseguera catheter placed. 7cc was used to inflate the balloon. The external portion of the trocar was removed. Dressing was placed, the bladder was emptied, and a drainage bag was attached. 1000 cc obtained Progress Note: A&P Time Spent With Patient Time: Total time managing care of this patient today ____ minutes. Progress Note: Quality Stroke Does the patient have a stroke diagnosis?: No
[2022-11-13 19:21] VITALS: BP 128/63; PULSE 89; RESP 17; TEMP 36.3; O2SAT 92
[2022-11-13 20:20] LABS: Glucose, Whole Blood 170 mg/dL (60-115)
[2022-11-13] MEDS: Famotidine 20 MG TABLET PO (20:54)
[2022-11-13] MEDS: Amitriptyline HCl 50 MG TABLET PO (20:54)
[2022-11-13] MEDS: 0.9 % Sodium Chloride Flush 3 ML SYRINGE IVFLUSH (20:54)
[2022-11-13] MEDS: Tamsulosin HCL 0.4 MG CAPSULE PO (20:54)
[2022-11-13] MEDS: Sennosides/Docusate Sodium TABLET 2 TAB PO (20:54)
[2022-11-13] MEDS: Insulin Lispro 100 UNIT/ML 3 ML VIAL SUBCUT (20:55)
[2022-11-14] VITALS (11 sets, daily range): BP systolic 108–142; BP diastolic 57–68; PULSE 86–95; RESP 6–20; TEMP 36.5–37.7; O2SAT 89–97
[2022-11-14] MEDS: Enoxaparin Sodium 100 MG/ML SYRINGE 90 MG SUBCUT (02:04)
[2022-11-14] MEDS: Piperacillin Sodium/Tazobactam 3.375 GM in 0.9 % Sodium Chloride 50 ML IV ×3 (02:41→18:26)
[2022-11-14] MEDS: Lactated Ringers 500 ML 20 ML IVCONT (02:51)
--- NOTE | 2022-11-14 05:58 | PM.EVENT ---
Event Note Date of Service: 11/14/22 Event Note: significant bleed in the catheter bag, patient hemodynamically stable, will stop Lovenox at this time, urology contacted, stat CBC ordered Time Spent With Patient Time: Total time managing care of this patient today ____ minutes.
--- NOTE | 2022-11-14 06:14 | PC.NURSE ---
pt has pure blood on the catheter, dr Rogers notified, ordered clamp the catheter. followed the ordered. will continue to monitor procedure site.
[2022-11-14 06:18] LABS: Hematocrit 30.6 % (42.0-52.0); Hemoglobin 9.7 g/dl (14.0-18.0); MANUAL DIFF FLAG NO; Mean Corpuscular HGB Conc 31.7 g/dl (31.0-36.0); Mean Corpuscular Hemoglobin 27.4 pg (27.0-33.0); Mean Corpuscular Volume 86.4 fL (80.0-98.0); Platelet Count 194 X10*3/uL (160-400); Red Blood Count 3.54 X10*6/uL (4.60-5.80); Red Cell Distribution Width 15.4 % (11.0-16.0); White Blood Count 9.8 X10*3/uL (4.8-10.8)
[2022-11-14 06:23] LABS: Basophils Percent Auto 0.3 % (0-2); Eosinophils Absolute Auto 0.2 X10*3/uL (0.0-0.4); Eosinophils Percent Auto 1.7 % (0-4); Imm Gran Abs Auto 0.04 X10*3/uL (0.00-0.03); Imm Gran Pct Auto 0.4 % (0.0-0.4); Lymphocytes Absolute Auto 1.1 X10*3/uL (1.2-4.9); Monocytes Absolute Auto 0.7 X10*3/uL (0.1-1.2); Monocytes Percent Auto 7.7 % (2-11); Neutrophils Absolute Auto 7.3 x10*3/uL (2.0-8.3); Neutrophils Percent Auto 77.9 % (45-73)
[2022-11-14 07:14] LABS: Alanine Aminotransferase 282 U/L (0-40); Albumin Level 3.1 g/dL (3.5-5.0); Alkaline Phosphatase 181 U/L (39-117); Anion Gap 12 (12-20); Aspartate Amino Transferase 106 U/L (5-37); Bilirubin Direct 1.7 mg/dL (0.0-0.5); Bilirubin Total 3.6 mg/dL (0.0-1.0); Blood Urea Nitrogen 18 mg/dL (9-16); Calcium 8.2 mg/dL (8.4-10.2); Carbon Dioxide 24 mmol/L (22-29); Chloride 108 mmol/L (96-108); Creatinine Clr Calc Pharmacy 55.6; Estimated Glomerular Filt Rate 51; Glucose Fasting 116 mg/dL (60-99); Potassium 3.6 mmol/L (3.3-5.1); Sodium 140 mmol/L (135-145); Total Protein 5.2 g/dL (6.5-8.0)
[2022-11-14 07:28] LABS: Appearance Urine Turbid; Color Urine RED; Specific Gravity - Urine 1.015 (1.005-1.025); UMIC TRIGGER UACC YES; Urine Blood Large (3+) (Negative); Urine Ketones 15 mg/dL (Negative)
[2022-11-14 07:30] LABS: Glucose, Whole Blood 119 mg/dL (60-115)
[2022-11-14 07:38] LABS: Leukocyte Esterase Urine Moderate (2+) (Negative)
[2022-11-14 07:45] LABS: RBC Urine >20 /HPF (0-2)
[2022-11-14 07:46] LABS: Bacteria Urine None Seen (None Seen); Hyaline Casts Urine 0-2 /LPF (0-2); Squamous Epithelial Cell Urine 0-2 /HPF (0-2)
[2022-11-14] MEDS: polyethylene glycoL 3350 17 GM POWD.PACK PO (08:33)
[2022-11-14] MEDS: Cholecalciferol (Vitamin D3) 25 MCG TABLET 50 MCG PO (08:33)
[2022-11-14] MEDS: diazePAM 5 MG TABLET PO ×2 (08:34→15:19)
[2022-11-14] MEDS: Furosemide 40 MG TABLET PO (08:34)
[2022-11-14] MEDS: PARoxetine HCL 10 MG TABLET PO (08:34)
[2022-11-14] MEDS: amLODIPine Besylate 10 MG TABLET PO (08:34)
[2022-11-14] MEDS: Aspirin Enteric Coated 81 MG TABLET.DR PO (08:34)
[2022-11-14] MEDS: Finasteride 5 MG TABLET PO (08:35)
[2022-11-14] MEDS: Gabapentin 100 MG CAPSULE 200 MG PO (08:35)
[2022-11-14] MEDS: Atorvastatin Calcium 40 MG TABLET PO (08:35)
--- NOTE | 2022-11-14 09:01 | HO.PM.IMPN ---
Subjective Subjective Date of Service: 11/14/22 Interval History: suprapubic hematuria, releief of supapubic bloating Physical Exam Vital Signs: Vital Signs: Last Vital Signs Temp 98.8 F 11/14/22 07:25 Pulse 94 11/14/22 07:25 Resp 18 11/14/22 07:25 BP 142/66 H 11/14/22 07:25 Pulse Ox 91 L 11/14/22 07:25 O2 Del Method Room Air 11/14/22 07:25 O2 Flow Rate 2 11/13/22 01:56 Oxygen Flow Rate 2 11/12/22 19:02 BMI result Body Mass Index 31.6 Const: General: cooperative, healthy appearing, comfortable and no acute distress Orientation/consciousness: patient oriented x3 HEENT: Face and sinus: Yes normal facial exam Mouth: moist mucous membranes Neck: Neck: Yes normal visual inspection, Yes full ROM and Yes trachea midline Chest: Chest palpation & inspection: normal inspection of the chest Resp: Effort & Inspection: normal respiratory effort, able to speak in complete sentences and no respiratory distress GI: Inspection: Yes normal to inspection Back/Spine/Pelvis: Cervical Spine: normal cervical lordosis Thoracic/Lumbar Spine: thoracic and lumbar spine normal to inspection Skin: General skin exam: no rashes or lesions noted Neuro: General: patient oriented x3, tone normal and moves all extremities Extrem: General: Yes normal to inspection and Yes capillary refill normal Objective Data Active Medications Amitriptyline HCl (Amitriptyline Hcl 50 Mg Tablet) 50 mg PO BEDTIME [facility] Last Admin: 11/13/22 20:54 Dose: 50 mg Documented By: DIPAK Amlodipine Besylate (Amlodipine Besylate 10 Mg Tablet) 10 mg PO DAILY [facility]; Protocol Last Admin: 11/14/22 08:34 Dose: 10 mg Documented By: ALICE Aspirin (Aspirin Enteric Coated 81 Mg Tablet.) 81 mg PO DAILY [facility] Last Admin: 11/14/22 08:34 Dose: 81 mg Documented By: ALICE Atorvastatin Calcium (Atorvastatin Calcium 40 Mg Tablet) 40 mg PO DAILY [facility] Last Admin: 11/14/22 08:35 Dose: 40 mg Documented By: ALICE Diazepam (Diazepam 5 Mg Tablet) 5 mg PO TID [facility] Last Admin: 11/14/22 08:34 Dose: 5 mg Documented By: ALICE Docusate Sodium (Docusate Sodium 100 Mg Capsule) 100 mg PO DAILY PRN PRN Reason: Constipation Famotidine (Famotidine 20 Mg Tablet) 20 mg PO BEDTIME [facility] Last Admin: 11/13/22 20:54 Dose: 20 mg Documented By: DIPAK Finasteride (Finasteride 5 Mg Tablet) 5 mg PO DAILY RICA Last Admin: 11/14/22 08:35 Dose: 5 mg Documented By: ALICE Furosemide (Furosemide 40 Mg Tablet) 40 mg PO DAILY [facility]; Protocol Last Admin: 11/14/22 08:34 Dose: 40 mg Documented By: ALICE Gabapentin (Gabapentin 100 Mg Capsule) 200 mg PO BID [facility] Last Admin: 11/14/22 08:35 Dose: 200 mg Documented By: ALICE Glucose (Glucose Gel 15 Gm Gel..Gram.) 15 gm PO Q15M PRN; Protocol PRN Reason: per Hypoglycemia Standing Ord. Piperacillin Sod/Tazobactam (Sod 3.375 gm/ Sodium Chloride) 50 mls @ 12.5 mls/hr IV Q8H [facility] Last Infusion: 11/14/22 06:44 Dose: 0 mls/hr Documented By: DIPAK Lactated Ringer's (Lr) 500 mls @ 20 mls/hr IVCONT .Q24H [facility] Last Admin: 11/14/22 02:51 Dose: 20 mls/hr Documented By: DIPAK Dextrose (D10) 250 mls @ 750 mls/hr IV Q15M PRN; Protocol PRN Reason: per Hypoglycemia Standing Ord. Insulin Human Lispro (Insulin Lispro 100 Unit/Ml 3 Ml Vial) 0 unit SUBCUT QIDACHS [facility]; Protocol Last Admin: 11/14/22 08:26 Dose: Not Given Documented By: ALICE Non-Admin Reason: No Insulin Coverage Ondansetron HCl (Ondansetron Hcl 4 Mg/2 Ml Vial) 4 mg IVPUSH Q8H PRN PRN Reason: Nausea and Vomiting Paroxetine HCl (Paroxetine Hcl 10 Mg Tablet) 10 mg PO DAILY [facility] Last Admin: 11/14/22 08:34 Dose: 10 mg Documented By: ALICE Polyethylene Glycol (Polyethylene Glycol 3350 17 Gm Powd.Pack) 17 gm PO DAILY [facility] Last Admin: 11/14/22 08:33 Dose: 17 gm Documented By: ALICE Senna/Docusate Sodium (Sennosides/Docusate Sodium Tablet) 2 tab PO BEDTIME [facility] Last Admin: 11/13/22 20:54 Dose: 2 tab Documented By: DIPAK Sodium Chloride (0.9 % Sodium Chloride Flush 3 Ml Syringe) 3 ml IVFLUSH QSHIFT [facility] Last Admin: 11/14/22 08:26 Dose: Not Given Documented By: ALICE Non-Admin Reason: IV Running Tamsulosin HCl (Tamsulosin Hcl 0.4 Mg Capsule) 0.4 mg PO BEDTIME [facility] Last Admin: 11/13/22 20:54 Dose: 0.4 mg Documented By: DIPAK Vitamin D (Cholecalciferol (Vitamin D3) 25 Mcg Tablet) 50 mcg PO DAILY [facility] Last Admin: 11/14/22 08:33 Dose: 50 mcg Documented By: ALICE Labs 11/14/22 05:45 11/14/22 05:45 Labs: Laboratory Results - last 24 hr 11/13/22 11/13/22 11/13/22 02:03 10:33 11:12 MCV MCH MCHC RDW Plt Count MPV Immature Gran % (Auto) Neut % (Auto) Lymph % (Auto) [place] % (Auto) Eos % (Auto) Baso % (Auto) Lymph # (Auto) [place] # (Auto) Eos # (Auto) Baso # (Auto) Abs Immat Gran (auto) Absolute Neuts (auto) Absolute Nucleated RBC Nucleated RBC % (auto) Anion Gap Estim Creat Clear Calc Estimated GFR POC Glucose 142 H Fasting Glucose Calcium Total Bilirubin Direct Bilirubin AST ALT Alkaline Phosphatase Troponin I High Sens 3516.0 H* Total Protein Albumin Urine Color Urine Appearance Urine pH Ur Specific [place] Urine Protein Urine Glucose (UA) Urine Ketones Urine Blood Urine Nitrite Ur Leukocyte Esterase Urine RBC Urine WBC Ur Squamous Epith Cells Urine Bacteria Hyaline Casts Hepatitis A IgM Ab Nonreactive Hep Bs Antigen Negative Hep Bs Antibody NONREACTIVE Hep B Core Total Ab Nonreactive Hepatitis C Ab (EIA) Nonreactive 11/13/22 11/13/22 11/14/22 16:39 20:10 05:45 MCV 86.4 MCH 27.4 MCHC 31.7 RDW 15.4 Plt Count 194 MPV 10.0 Immature Gran % (Auto) 0.4 Neut % (Auto) 77.9 H Lymph % (Auto) 12.0 L [place] % (Auto) 7.7 Eos % (Auto) 1.7 Baso % (Auto) 0.3 Lymph # (Auto) 1.1 L [place] # (Auto) 0.7 Eos # (Auto) 0.2 Baso # (Auto) 0.0 Abs Immat Gran (auto) 0.04 H Absolute Neuts (auto) 7.3 Absolute Nucleated RBC 0.000 Nucleated RBC % (auto) 0.0 Anion Gap Estim Creat Clear Calc Estimated GFR POC Glucose 155 H 170 H Fasting Glucose Calcium Total Bilirubin Direct Bilirubin AST ALT Alkaline Phosphatase Troponin I High Sens Total Protein Albumin Urine Color Urine Appearance Urine pH Ur Specific [place] Urine Protein Urine Glucose (UA) Urine Ketones Urine Blood Urine Nitrite Ur Leukocyte Esterase Urine RBC Urine WBC Ur Squamous Epith Cells Urine Bacteria Hyaline Casts Hepatitis A IgM Ab Hep Bs Antigen Hep Bs Antibody Hep B Core Total Ab Hepatitis C Ab (EIA) 11/14/22 11/14/22 11/14/22 05:45 06:35 07:24 MCV MCH MCHC RDW Plt Count MPV Immature Gran % (Auto) Neut % (Auto) Lymph % (Auto) [place] % (Auto) Eos % (Auto) Baso % (Auto) Lymph # (Auto) [place] # (Auto) Eos # (Auto) Baso # (Auto) Abs Immat Gran (auto) Absolute Neuts (auto) Absolute Nucleated RBC Nucleated RBC % (auto) Anion Gap 12 Estim Creat Clear Calc 55.6 Estimated GFR 51 POC Glucose 119 H Fasting Glucose 116 H Calcium 8.2 L Total Bilirubin 3.6 H Direct Bilirubin 1.7 H AST 106 H ALT 282 H Alkaline Phosphatase 181 H Troponin I High Sens Total Protein 5.2 L Albumin 3.1 L Urine Color RED Urine Appearance Turbid Urine pH 7.0 Ur Specific [place] 1.015 Urine Protein TNP Urine Glucose (UA) TNP Urine Ketones 15 Urine Blood Large (3+) H Urine Nitrite TNP Ur Leukocyte Esterase Moderate (2+) H Urine RBC >20 H Urine WBC 11-20 H Ur Squamous Epith Cells 0-2 Urine Bacteria None Seen Hyaline Casts 0-2 Hepatitis A IgM Ab Hep Bs Antigen Hep Bs Antibody Hep B Core Total Ab Hepatitis C Ab (EIA) Microbiology Microbiology Results: Microbiology 11/12/22 19:59 Blood Culture - Preliminary Blood - Venous Gram negative kelly 11/12/22 19:29 Blood Culture - Preliminary Blood - Venous Gram negative kelly 11/13/22 08:01 Urine Culture - Final Urine clean catch - Urine [place] top Assessment and Plan (1) Elevated LFTs: Status: Acute Plan 72-year-old male with past medical history of chronic heart failure with Preserved ejection fraction, chronic hypoxic respiratory failure due to COPD, type 2 diabetes, urinary retention, paroxysmal AFib, HTN, CAD?, history of etoh dependence, mood disorder, hepatic steatosis presented with chest pain, found to have sepsis, urinary retention, nstemi, elevated lfts sepsis due to acute cholecystitis vs UTI complicated by GNR bacteremia zosyn, follow up cultures urinary retention s/p suprapubic complicated by hematuria, monitor cbc, flush to keep open NSTEMI lovenox 1mg/kg q12 48hrs, asa, statin, cardio following, echo - no WMA DM insulin obeisty weight loss paroxysmal afib in sinus, not on AC or rate control at home full code reason for continued hospitalization: hematuria Time Spent With Patient Time: Total time managing care of this patient today ____ minutes. Quality Stroke Does the patient have a stroke diagnosis?: No VTE Prior VTE?: No VTE Risk Level:: Medical - moderate - high VTE Device Contraindication: Treatment Not Indicated VTE Drug Contraindication: N/A - Med Ordered
[2022-11-14 11:30] LABS: Glucose, Whole Blood 143 mg/dL (60-115)
--- NOTE | 2022-11-14 11:39 | PM.PNGS ---
Subjective Subjective Date of Service: 11/14/22 Interval history: denies pain no events reported [place] output with blood Physical Exam Vital Signs: Vital Signs: Last Vital Signs Temp 98.8 F 11/14/22 07:25 Pulse 94 11/14/22 07:25 Resp 18 11/14/22 07:25 BP 142/66 H 11/14/22 07:25 Pulse Ox 91 L 11/14/22 07:25 O2 Del Method Room Air 11/14/22 07:25 O2 Flow Rate 2 11/13/22 01:56 Oxygen Flow Rate 2 11/12/22 19:02 BMI result Body Mass Index 31.6 Resp: Effort & Inspection: normal respiratory effort Cardio: Rate: regular rate GI: Palpation (GI): Soft to palpation, not firm, nontender and no guarding Objective Data Active Medications Amitriptyline HCl (Amitriptyline Hcl 50 Mg Tablet) 50 mg PO BEDTIME [facility] Last Admin: 11/13/22 20:54 Dose: 50 mg Documented By: DIPAK Amlodipine Besylate (Amlodipine Besylate 10 Mg Tablet) 10 mg PO DAILY [facility]; Protocol Last Admin: 11/14/22 08:34 Dose: 10 mg Documented By: ALICE Aspirin (Aspirin Enteric Coated 81 Mg Tablet.Dr) 81 mg PO DAILY [facility] Last Admin: 11/14/22 08:34 Dose: 81 mg Documented By: ALICE Atorvastatin Calcium (Atorvastatin Calcium 40 Mg Tablet) 40 mg PO DAILY [facility] Last Admin: 11/14/22 08:35 Dose: 40 mg Documented By: ALICE Diazepam (Diazepam 5 Mg Tablet) 5 mg PO TID [facility] Last Admin: 11/14/22 08:34 Dose: 5 mg Documented By: ALICE Docusate Sodium (Docusate Sodium 100 Mg Capsule) 100 mg PO DAILY PRN PRN Reason: Constipation Famotidine (Famotidine 20 Mg Tablet) 20 mg PO BEDTIME [facility] Last Admin: 11/13/22 20:54 Dose: 20 mg Documented By: DIPAK Finasteride (Finasteride 5 Mg Tablet) 5 mg PO DAILY [facility] Last Admin: 11/14/22 08:35 Dose: 5 mg Documented By: ALICE Furosemide (Furosemide 40 Mg Tablet) 40 mg PO DAILY [facility]; Protocol Last Admin: 11/14/22 08:34 Dose: 40 mg Documented By: ALICE Gabapentin (Gabapentin 100 Mg Capsule) 200 mg PO BID [facility] Last Admin: 11/14/22 08:35 Dose: 200 mg Documented By: ALICE Glucose (Glucose Gel 15 Gm Gel..Gram.) 15 gm PO Q15M PRN; Protocol PRN Reason: per Hypoglycemia Standing Ord. Piperacillin Sod/Tazobactam (Sod 3.375 gm/ Sodium Chloride) 50 mls @ 12.5 mls/hr IV Q8H [facility] Last Admin: 11/14/22 11:21 Dose: 12.5 mls/hr Documented By: ALICE Lactated Ringer's (Lr) 500 mls @ 20 mls/hr IVCONT .Q24H [facility] Last Admin: 11/14/22 02:51 Dose: 20 mls/hr Documented By: DIPAK Dextrose (D10) 250 mls @ 750 mls/hr IV Q15M PRN; Protocol PRN Reason: per Hypoglycemia Standing Ord. Insulin Human Lispro (Insulin Lispro 100 Unit/Ml 3 Ml Vial) 0 unit SUBCUT QIDACHS [facility]; Protocol Last Admin: 11/14/22 11:38 Dose: Not Given Documented By: ALICE Non-Admin Reason: No Insulin Coverage Ondansetron HCl (Ondansetron Hcl 4 Mg/2 Ml Vial) 4 mg IVPUSH Q8H PRN PRN Reason: Nausea and Vomiting Paroxetine HCl (Paroxetine Hcl 10 Mg Tablet) 10 mg PO DAILY [facility] Last Admin: 11/14/22 08:34 Dose: 10 mg Documented By: ALICE Polyethylene Glycol (Polyethylene Glycol 3350 17 Gm Powd.Pack) 17 gm PO DAILY [facility] Last Admin: 11/14/22 08:33 Dose: 17 gm Documented By: ALICE Senna/Docusate Sodium (Sennosides/Docusate Sodium Tablet) 2 tab PO BEDTIME [facility] Last Admin: 11/13/22 20:54 Dose: 2 tab Documented By: DIPAK Sodium Chloride (0.9 % Sodium Chloride Flush 3 Ml Syringe) 3 ml IVFLUSH QSHIFT [facility] Last Admin: 11/14/22 08:26 Dose: Not Given Documented By: ALICE Non-Admin Reason: IV Running Tamsulosin HCl (Tamsulosin Hcl 0.4 Mg Capsule) 0.4 mg PO BEDTIME [facility] Last Admin: 11/13/22 20:54 Dose: 0.4 mg Documented By: DIPAK Vitamin D (Cholecalciferol (Vitamin D3) 25 Mcg Tablet) 50 mcg PO DAILY [facility] Last Admin: 11/14/22 08:33 Dose: 50 mcg Documented By: ALICE Labs 11/14/22 05:45 11/14/22 05:45 Labs: Laboratory Results - last 24 hr 11/13/22 11/13/22 11/13/22 10:33 16:39 20:10 MCV MCH MCHC RDW Plt Count MPV Immature Gran % (Auto) Neut % (Auto) Lymph % (Auto) [place] % (Auto) Eos % (Auto) Baso % (Auto) Lymph # (Auto) [place] # (Auto) Eos # (Auto) Baso # (Auto) Abs Immat Gran (auto) Absolute Neuts (auto) Absolute Nucleated RBC Nucleated RBC % (auto) Anion Gap Estim Creat Clear Calc Estimated GFR POC Glucose 155 H 170 H Fasting Glucose Calcium Total Bilirubin Direct Bilirubin AST ALT Alkaline Phosphatase Troponin I High Sens 3516.0 H* Total Protein Albumin Urine Color Urine Appearance Urine pH Ur Specific [place] Urine Protein Urine Glucose (UA) Urine Ketones Urine Blood Urine Nitrite Ur Leukocyte Esterase Urine RBC Urine WBC Ur Squamous Epith Cells Urine Bacteria Hyaline Casts 11/14/22 11/14/22 11/14/22 05:45 05:45 06:35 MCV 86.4 MCH 27.4 MCHC 31.7 RDW 15.4 Plt Count 194 MPV 10.0 Immature Gran % (Auto) 0.4 Neut % (Auto) 77.9 H Lymph % (Auto) 12.0 L [place] % (Auto) 7.7 Eos % (Auto) 1.7 Baso % (Auto) 0.3 Lymph # (Auto) 1.1 L [place] # (Auto) 0.7 Eos # (Auto) 0.2 Baso # (Auto) 0.0 Abs Immat Gran (auto) 0.04 H Absolute Neuts (auto) 7.3 Absolute Nucleated RBC 0.000 Nucleated RBC % (auto) 0.0 Anion Gap 12 Estim Creat Clear Calc 55.6 Estimated GFR 51 POC Glucose Fasting Glucose 116 H Calcium 8.2 L Total Bilirubin 3.6 H Direct Bilirubin 1.7 H AST 106 H ALT 282 H Alkaline Phosphatase 181 H Troponin I High Sens Total Protein 5.2 L Albumin 3.1 L Urine Color RED Urine Appearance Turbid Urine pH 7.0 Ur Specific [place] 1.015 Urine Protein TNP Urine Glucose (UA) TNP Urine Ketones 15 Urine Blood Large (3+) H Urine Nitrite TNP Ur Leukocyte Esterase Moderate (2+) H Urine RBC >20 H Urine WBC 11-20 H Ur Squamous Epith Cells 0-2 Urine Bacteria None Seen Hyaline Casts 0-2 11/14/22 11/14/22 07:24 11:27 MCV MCH MCHC RDW Plt Count MPV Immature Gran % (Auto) Neut % (Auto) Lymph % (Auto) [place] % (Auto) Eos % (Auto) Baso % (Auto) Lymph # (Auto) [place] # (Auto) Eos # (Auto) Baso # (Auto) Abs Immat Gran (auto) Absolute Neuts (auto) Absolute Nucleated RBC Nucleated RBC % (auto) Anion Gap Estim Creat Clear Calc Estimated GFR POC Glucose 119 H 143 H Fasting Glucose Calcium Total Bilirubin Direct Bilirubin AST ALT Alkaline Phosphatase Troponin I High Sens Total Protein Albumin Urine Color Urine Appearance Urine pH Ur Specific [place] Urine Protein Urine Glucose (UA) Urine Ketones Urine Blood Urine Nitrite Ur Leukocyte Esterase Urine RBC Urine WBC Ur Squamous Epith Cells Urine Bacteria Hyaline Casts Microbiology Microbiology Results: Microbiology 11/12/22 19:59 Blood Culture - Preliminary Blood - Venous Gram negative kelly 11/12/22 19:29 Blood Culture - Preliminary Blood - Venous Gram negative kelly 11/13/22 08:01 Urine Culture - Final Urine clean catch - Urine [place] top Procedures Date of Service Date of Service: 11/14/22 Progress Note: A&P Assessment and plan (1) Gallbladder sludge: Status: Acute Assessment and Plan: clinically no cholecystitis bili still elevated although slightly lower seen by GI - abnormal LFTs from ischemic hepatitis? exam remains benign looks comfortable Time Spent With Patient Time: Total time managing care of this patient today ____ minutes. Quality Stroke Does the patient have a stroke diagnosis?: No VTE Prior VTE?: No VTE Risk Level:: Medical - moderate - high VTE Device Contraindication: Treatment Not Indicated VTE Drug Contraindication: N/A - Med Ordered
--- NOTE | 2022-11-14 14:00 | PM.UROPN ---
Subjective Subjective Date of Service: 11/14/22 Interval history: SP tube clotted - attempted irrigation without success, Abdomen soft, nontender. Discussed with Medicine. Echo good function. Septic AL. Clinically stable Hematuria and urinary retention requires further management under anesthesia Patient ate lunch. Will Sched per protocol. Continues to have overflow leakage per urethra Physical Exam Vital Signs: Vital Signs: Last Vital Signs Temp 98.8 F 11/14/22 07:25 Pulse 94 11/14/22 07:25 Resp 18 11/14/22 07:25 BP 142/66 H 11/14/22 07:25 Pulse Ox 91 L 11/14/22 07:25 O2 Del Method Room Air 11/14/22 07:25 O2 Flow Rate 2 11/13/22 01:56 Oxygen Flow Rate 2 11/12/22 19:02 BMI result Body Mass Index 31.6 GI: Palpation (GI): Soft to palpation : Other: blood at the cystotomy site. Urology Results Labs 11/14/22 05:45 11/14/22 05:45 Labs: Laboratory Results - last 24 hr 11/13/22 11/13/22 11/14/22 16:39 20:10 05:45 WBC 9.8 RBC 3.54 L Hgb 9.7 L Hct 30.6 L MCV 86.4 MCH 27.4 MCHC 31.7 RDW 15.4 Plt Count 194 MPV 10.0 Immature Gran % (Auto) 0.4 Neut % (Auto) 77.9 H Lymph % (Auto) 12.0 L [place] % (Auto) 7.7 Eos % (Auto) 1.7 Baso % (Auto) 0.3 Lymph # (Auto) 1.1 L [place] # (Auto) 0.7 Eos # (Auto) 0.2 Baso # (Auto) 0.0 Abs Immat Gran (auto) 0.04 H Absolute Neuts (auto) 7.3 Absolute Nucleated RBC 0.000 Nucleated RBC % (auto) 0.0 Sodium Potassium Chloride Carbon Dioxide Anion Gap BUN Creatinine Estim Creat Clear Calc Estimated GFR POC Glucose 155 H 170 H Fasting Glucose Calcium Total Bilirubin Direct Bilirubin AST ALT Alkaline Phosphatase Total Protein Albumin Urine Color Urine Appearance Urine pH Ur Specific [place] Urine Protein Urine Glucose (UA) Urine Ketones Urine Blood Urine Nitrite Ur Leukocyte Esterase Urine RBC Urine WBC Ur Squamous Epith Cells Urine Bacteria Hyaline Casts 0411/14/22 11/14/22 05:45 06:35 07:24 WBC RBC Hgb Hct MCV MCH MCHC RDW Plt Count MPV Immature Gran % (Auto) Neut % (Auto) Lymph % (Auto) [place] % (Auto) Eos % (Auto) Baso % (Auto) Lymph # (Auto) [place] # (Auto) Eos # (Auto) Baso # (Auto) Abs Immat Gran (auto) Absolute Neuts (auto) Absolute Nucleated RBC Nucleated RBC % (auto) Sodium 140 Potassium 3.6 Chloride 108 Carbon Dioxide 24 Anion Gap 12 BUN 18 H Creatinine 1.36 Estim Creat Clear Calc 55.6 Estimated GFR 51 POC Glucose 119 H Fasting Glucose 116 H Calcium 8.2 L Total Bilirubin 3.6 H Direct Bilirubin 1.7 H AST 106 H ALT 282 H Alkaline Phosphatase 181 H Total Protein 5.2 L Albumin 3.1 L Urine Color RED Urine Appearance Turbid Urine pH 7.0 Ur Specific [place] 1.015 Urine Protein TNP Urine Glucose (UA) TNP Urine Ketones 15 Urine Blood Large (3+) H Urine Nitrite TNP Ur Leukocyte Esterase Moderate (2+) H Urine RBC >20 H Urine WBC 11-20 H Ur Squamous Epith Cells 0-2 Urine Bacteria None Seen Hyaline Casts 0-2 11/14/22 11:27 WBC RBC Hgb Hct MCV MCH MCHC RDW Plt Count MPV Immature Gran % (Auto) Neut % (Auto) Lymph % (Auto) [place] % (Auto) Eos % (Auto) Baso % (Auto) Lymph # (Auto) [place] # (Auto) Eos # (Auto) Baso # (Auto) Abs Immat Gran (auto) Absolute Neuts (auto) Absolute Nucleated RBC Nucleated RBC % (auto) Sodium Potassium Chloride Carbon Dioxide Anion Gap BUN Creatinine Estim Creat Clear Calc Estimated GFR POC Glucose 143 H Fasting Glucose Calcium Total Bilirubin Direct Bilirubin AST ALT Alkaline Phosphatase Total Protein Albumin Urine Color Urine Appearance Urine pH Ur Specific [place] Urine Protein Urine Glucose (UA) Urine Ketones Urine Blood Urine Nitrite Ur Leukocyte Esterase Urine RBC Urine WBC Ur Squamous Epith Cells Urine Bacteria Hyaline Casts Progress Note: A&P Assessment and plan (1) Urinary retention: Status: Acute (2) Urethral stricture in male: Status: Acute (3) Clot hematuria: Status: Acute Plan Septic AL. Echo good function. Discussed with Medicine. Hematuria and urinary retention requires further management under anesthesia Time Spent With Patient Time: Total time managing care of this patient today ____ minutes. Progress Note: Quality Stroke Does the patient have a stroke diagnosis?: No
[2022-11-14 16:46] LABS: Glucose, Whole Blood 145 mg/dL (60-115)
--- NOTE | 2022-11-14 17:36 | PC.NURSE ---
Dr. Rogers in early this morning. He unclamped suprapubic catheter. Stated to irrigate catheter as needed. Catheter was draining bloody urine. Throughout morning, catheter was irrigated, without change in urine apprearance. At 12pm saline was able to be instilled but was not draining back out. Dr. Javier came to patient room to try to clear clot. Unable to regain patency of catheter. New order for patient to go to O.R. at 7:30pm (8 hours after last meal) to have catheter placed during cystoscopy. Patient NPO since 11:30am.
--- NOTE | 2022-11-14 17:53 | P.CONAN_ITS ---
HPI - Anesthesia Eval Consult details Narrative: bladder obstruction PMFSH Active Problems Active Problems: All Active Problems (Updated 11/14/22 @ 14:03 by Donald Javier MD) Clot hematuria (Acute) Elevated LFTs (Acute) Urethral stricture in male (Acute) Urinary retention (Acute) Gallbladder sludge (Acute) Transaminitis (Acute) Sepsis (Acute) Urinary tract infection (Acute) Fever (Acute) Non-ST elevation [place] (NSTEMI) (Acute) COPD exacerbation (Acute) Aspiration pneumonia (Acute) Hypernatremia (Acute) Hypokalemia (Acute) Toxic metabolic encephalopathy (Acute) CHF exacerbation (Acute) Acute on chronic heart failure with preserved ejection fraction (HFpEF) (Acute) Hypertension (Acute) Past Medical History Medical History Abdomen enlarged Acute on chronic heart failure with preserved ejection fraction (HFpEF) Acute on chronic respiratory failure with hypoxia and hypercapnia Acute renal failure Acute respiratory failure with hypoxia Acute upper gastrointestinal bleeding Afib STIVEN (acute kidney injury) Altered mental status Aspiration pneumonitis Atypical pneumonia Borderline diabetic CHF exacerbation Congestive heart failure Hypertension Hyperthyroidism Hypoxia Ileus Multifocal pneumonia Myocardial infarct Partial obstruction of small intestine Pneumonia Pulmonary aspiration Sepsis associated hypotension Toxic metabolic encephalopathy Urinary catheter in place Urinary tract infection Family History Family history of problems with anesthesia: No Surgical History History of Problems with Anesthesia: No Social History Social History Household Members: None Housing: Jail Do you presently have visiting nurse or other home services: 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 If so, by whom?: No Do you feel safe in your current relationship?: Yes Is there a partner from a previous relationship who is making you feel unsafe now?: No Are you made to feel afraid or neglected: No Advance Directives: Yes Advance Directives on File: Yes Advance Directives Date on File: 11/01/20 Do you have thoughts of harming others: None Do you have a plan to hurt others: No Plan Recently lost weight without trying: No How much weight loss: Not applicable Eating poorly because of decreased appetite: No Nutrition screen score: 0 Nutrition Risks: No Nutritional Risk Poor oral hygiene: No service: No Current occupational status: retired [employer] Allergies Allergy/AdvReac Type Severity Reaction Status Date / Time No Known Allergies Allergy Verified 11/13/22 05:12 [No Known Allergies*] Active Medications: Current Medications Amitriptyline HCl (Amitriptyline Hcl 50 Mg Tablet) 50 mg PO BEDTIME [facility] Last Admin: 11/13/22 20:54 Dose: 50 mg Amlodipine Besylate (Amlodipine Besylate 10 Mg Tablet) 10 mg PO DAILY [facility]; Protocol Last Admin: 11/14/22 08:34 Dose: 10 mg Aspirin (Aspirin Enteric Coated 81 Mg Tablet.Dr) 81 mg PO DAILY [facility] Last Admin: 11/14/22 08:34 Dose: 81 mg Atorvastatin Calcium (Atorvastatin Calcium 40 Mg Tablet) 40 mg PO DAILY [facility] Last Admin: 11/14/22 08:35 Dose: 40 mg Diazepam (Diazepam 5 Mg Tablet) 5 mg PO TID [facility] Last Admin: 11/14/22 15:19 Dose: 5 mg Docusate Sodium (Docusate Sodium 100 Mg Capsule) 100 mg PO DAILY PRN PRN Reason: Constipation Famotidine (Famotidine 20 Mg Tablet) 20 mg PO BEDTIME [facility] Last Admin: 11/13/22 20:54 Dose: 20 mg Finasteride (Finasteride 5 Mg Tablet) 5 mg PO DAILY [facility] Last Admin: 11/14/22 08:35 Dose: 5 mg Furosemide (Furosemide 40 Mg Tablet) 40 mg PO DAILY [facility]; Protocol Last Admin: 11/14/22 08:34 Dose: 40 mg Gabapentin (Gabapentin 100 Mg Capsule) 200 mg PO BID [facility] Last Admin: 11/14/22 08:35 Dose: 200 mg Glucose (Glucose Gel 15 Gm Gel..Gram.) 15 gm PO Q15M PRN; Protocol PRN Reason: per Hypoglycemia Standing Ord. Piperacillin Sod/Tazobactam (Sod 3.375 gm/ Sodium Chloride) 50 mls @ 12.5 mls/hr IV Q8H [facility] Last Infusion: 11/14/22 16:15 Dose: Infused Lactated Ringer's (Lr) 500 mls @ 20 mls/hr IVCONT .Q24H [facility] Last Admin: 11/14/22 02:51 Dose: 20 mls/hr Dextrose (D10) 250 mls @ 750 mls/hr IV Q15M PRN; Protocol PRN Reason: per Hypoglycemia Standing Ord. Insulin Human Lispro (Insulin Lispro 100 Unit/Ml 3 Ml Vial) 0 unit SUBCUT QIDACHS [facility]; Protocol Last Admin: 11/14/22 16:38 Dose: Not Given Ondansetron HCl (Ondansetron Hcl 4 Mg/2 Ml Vial) 4 mg IVPUSH Q8H PRN PRN Reason: Nausea and Vomiting Paroxetine HCl (Paroxetine Hcl 10 Mg Tablet) 10 mg PO DAILY [facility] Last Admin: 11/14/22 08:34 Dose: 10 mg Polyethylene Glycol (Polyethylene Glycol 3350 17 Gm Powd.Pack) 17 gm PO DAILY [facility] Last Admin: 11/14/22 08:33 Dose: 17 gm Senna/Docusate Sodium (Sennosides/Docusate Sodium Tablet) 2 tab PO BEDTIME [facility] Last Admin: 11/13/22 20:54 Dose: 2 tab Sodium Chloride (0.9 % Sodium Chloride Flush 3 Ml Syringe) 3 ml IVFLUSH QSHIFT [facility] Last Admin: 11/14/22 16:14 Dose: Not Given Tamsulosin HCl (Tamsulosin Hcl 0.4 Mg Capsule) 0.4 mg PO BEDTIME [facility] Last Admin: 11/13/22 20:54 Dose: 0.4 mg Vitamin D (Cholecalciferol (Vitamin D3) 25 Mcg Tablet) 50 mcg PO DAILY [facility] Last Admin: 11/14/22 08:33 Dose: 50 mcg Home Medications Medication Instructions Recorded Confirmed Last Taken Type atorvastatin 40 mg tablet 1 tab PO DAILY 10/18/20 11/13/22 Unknown History finasteride 5 mg tablet 1 tab PO DAILY 10/18/20 11/13/22 Unknown History losartan 100 mg tablet 1 tab PO DAILY 10/18/20 11/13/22 Unknown History tamsulosin 0.4 mg capsule 1 cap PO BEDTIME 10/18/20 11/13/22 Unknown History cholecalciferol (vitamin D3) 50 50 mcg PO DAILY 02/17/22 11/13/22 Unknown History mcg (2,000 unit) tablet gabapentin 100 mg capsule 200 mg PO BID 02/17/22 11/13/22 Unknown History paroxetine HCl 10 mg tablet 10 mg PO DAILY 02/17/22 11/13/22 Unknown History potassium chloride 10 mEq 10 meq PO DAILY 02/17/22 11/13/22 Unknown History tablet,extended release(part/cryst) sennosides 8.6 mg-docusate sodium 2 tab PO BEDTIME 02/17/22 11/13/22 Unknown History 50 mg tablet (Senna Plus) Probiotic 1 cap PO BID 11/13/22 11/13/22 Unknown History amitriptyline 50 mg tablet 50 mg PO BEDTIME 11/13/22 11/13/22 Unknown History diazepam 5 mg tablet 5 mg PO TID 11/13/22 11/13/22 Unknown History naproxen 500 mg tablet (Naprosyn) 500 mg PO Q12H PRN Pain 11/13/22 11/13/22 Unknown History omeprazole 20 mg capsule,delayed 20 mg PO DAILY 11/13/22 11/13/22 Unknown History release phenazopyridine 200 mg tablet 200 mg TID 11/13/22 11/13/22 Unknown History (Pyridium) Exam Exam Date and Time: November 14, 2022 175 Height,Weight and Vital Signs: Height 5 ft 9 in Weight 97.1 kg Last Vital Signs Temp 97.7 F 11/14/22 15:52 Pulse 90 11/14/22 15:52 Resp 17 11/14/22 15:52 BP 118/59 L 11/14/22 15:52 Pulse Ox 94 11/14/22 15:52 O2 Del Method Room Air 11/14/22 15:52 O2 Flow Rate 2 11/13/22 01:56 Oxygen Flow Rate 2 11/12/22 19:02 Pertinent Lab Results Pertinent Lab Results: Laboratory Tests 11/12/22 11/12/22 11/12/22 19:29 19:29 19:29 WBC 15.6 H RBC 4.24 L Hgb 11.5 L Hct 36.0 L MCV 84.9 MCH 27.1 MCHC 31.9 RDW 15.0 Plt Count 233 MPV 9.7 Immature Gran % (Auto) 0.3 Neut % (Auto) 90.4 H Lymph % (Auto) 2.2 L [place] % (Auto) 6.6 Eos % (Auto) 0.2 Baso % (Auto) 0.3 Lymph # (Auto) 0.4 L [place] # (Auto) 1.0 Eos # (Auto) 0.0 Baso # (Auto) 0.0 Abs Immat Gran (auto) 0.05 H Absolute Neuts (auto) 14.1 H Absolute Nucleated RBC 0.000 Nucleated RBC % (auto) 0.0 Smear Tech's Comments VERIFIED PT INR APTT Sodium 137 Potassium 4.4 Chloride 102 Carbon Dioxide 24 Anion Gap 15 BUN 22 H Creatinine 1.49 H Estim Creat Clear Calc 49.1 Estimated GFR 46 POC Glucose Random Glucose 184 H Fasting Glucose Lactic Acid Lactic Acid F/U @ 2Hr Lactic Acid F/U @ 4Hr Calcium 9.1 Magnesium 1.8 Total Bilirubin 4.5 H Direct Bilirubin AST 569 H ALT 595 H Alkaline Phosphatase 236 H Troponin I High Sens 244.4 H* B-Natriuretic Peptide Total Protein 6.2 L Albumin 3.8 Urine Color Urine Appearance Urine pH Ur Specific [place] Urine Protein Urine Glucose (UA) Urine Ketones Urine Blood Urine Nitrite Ur Leukocyte Esterase Urine RBC Urine WBC Ur Squamous Epith Cells Urine Bacteria Hyaline Casts Salicylates Acetaminophen Hepatitis A IgM Ab Hep Bs Antigen Hep Bs Antibody Hep B Core Total Ab Hepatitis C Ab (EIA) Influenza Type A (PCR) Influenza Type B (PCR) RSV RNA Qual (PCR) SARS-CoV-2 RNA (RT-PCR) 11/12/22 11/12/22 11/12/22 19:29 19:29 19:34 WBC RBC Hgb Hct MCV MCH MCHC RDW Plt Count MPV Immature Gran % (Auto) Neut % (Auto) Lymph % (Auto) [place] % (Auto) Eos % (Auto) Baso % (Auto) Lymph # (Auto) [place] # (Auto) Eos # (Auto) Baso # (Auto) Abs Immat Gran (auto) Absolute Neuts (auto) Absolute Nucleated RBC Nucleated RBC % (auto) Smear Tech's Comments PT INR APTT Sodium Potassium Chloride Carbon Dioxide Anion Gap BUN Creatinine Estim Creat Clear Calc Estimated GFR POC Glucose Random Glucose Fasting Glucose Lactic Acid 3.4 H* Lactic Acid F/U @ 2Hr Lactic Acid F/U @ 4Hr Calcium Magnesium Total Bilirubin Direct Bilirubin AST ALT Alkaline Phosphatase Troponin I High Sens B-Natriuretic Peptide 34 Total Protein Albumin Urine Color Urine Appearance Urine pH Ur Specific [place] Urine Protein Urine Glucose (UA) Urine Ketones Urine Blood Urine Nitrite Ur Leukocyte Esterase Urine RBC Urine WBC Ur Squamous Epith Cells Urine Bacteria Hyaline Casts Salicylates Acetaminophen Hepatitis A IgM Ab Hep Bs Antigen Hep Bs Antibody Hep B Core Total Ab Hepatitis C Ab (EIA) Influenza Type A (PCR) NEGATIVE Influenza Type B (PCR) NEGATIVE RSV RNA Qual (PCR) NEGATIVE SARS-CoV-2 RNA (RT-PCR) NEGATIVE 11/12/22 11/12/22 11/13/22 22:17 23:28 00:41 WBC RBC Hgb Hct MCV MCH MCHC RDW Plt Count MPV Immature Gran % (Auto) Neut % (Auto) Lymph % (Auto) [place] % (Auto) Eos % (Auto) Baso % (Auto) Lymph # (Auto) [place] # (Auto) Eos # (Auto) Baso # (Auto) Abs Immat Gran (auto) Absolute Neuts (auto) Absolute Nucleated RBC Nucleated RBC % (auto) Smear Tech's Comments PT INR APTT Sodium Potassium Chloride Carbon Dioxide Anion Gap BUN Creatinine Estim Creat Clear Calc Estimated GFR POC Glucose Random Glucose Fasting Glucose Lactic Acid Lactic Acid F/U @ 2Hr 2.3 H* Lactic Acid F/U @ 4Hr 2.1 H* Calcium Magnesium Total Bilirubin Direct Bilirubin AST ALT Alkaline Phosphatase Troponin I High Sens 936.2 H* D B-Natriuretic Peptide Total Protein Albumin Urine Color Urine Appearance Urine pH Ur Specific [place] Urine Protein Urine Glucose (UA) Urine Ketones Urine Blood Urine Nitrite Ur Leukocyte Esterase Urine RBC Urine WBC Ur Squamous Epith Cells Urine Bacteria Hyaline Casts Salicylates Acetaminophen Hepatitis A IgM Ab Hep Bs Antigen Hep Bs Antibody Hep B Core Total Ab Hepatitis C Ab (EIA) Influenza Type A (PCR) Influenza Type B (PCR) RSV RNA Qual (PCR) SARS-CoV-2 RNA (RT-PCR) 11/13/22 11/13/22 11/13/22 02:03 02:03 02:03 WBC 18.4 H RBC 3.43 L Hgb 9.5 L Hct 29.6 L MCV 86.3 MCH 27.7 MCHC 32.1 RDW 15.4 Plt Count 209 MPV 9.5 Immature Gran % (Auto) Neut % (Auto) Lymph % (Auto) [place] % (Auto) Eos % (Auto) Baso % (Auto) Lymph # (Auto) [place] # (Auto) Eos # (Auto) Baso # (Auto) Abs Immat Gran (auto) Absolute Neuts (auto) Absolute Nucleated RBC 0.000 Nucleated RBC % (auto) 0.0 Smear Tech's Comments PT INR APTT Sodium 140 Potassium 4.4 Chloride 108 Carbon Dioxide 22 Anion Gap 14 BUN 21 H Creatinine 1.40 Estim Creat Clear Calc 52.3 Estimated GFR 50 POC Glucose Random Glucose 151 H Fasting Glucose Lactic Acid Lactic Acid F/U @ 2Hr Lactic Acid F/U @ 4Hr Calcium 7.9 L D Magnesium Total Bilirubin 3.7 H Direct Bilirubin AST 304 H ALT 447 H Alkaline Phosphatase 180 H Troponin I High Sens B-Natriuretic Peptide Total Protein 5.0 L Albumin 3.0 L Urine Color Urine Appearance Urine pH Ur Specific [place] Urine Protein Urine Glucose (UA) Urine Ketones Urine Blood Urine Nitrite Ur Leukocyte Esterase Urine RBC Urine WBC Ur Squamous Epith Cells Urine Bacteria Hyaline Casts Salicylates < 5.0 L Acetaminophen < 17 Hepatitis A IgM Ab Nonreactive Hep Bs Antigen Negative Hep Bs Antibody NONREACTIVE Hep B Core Total Ab Nonreactive Hepatitis C Ab (EIA) Nonreactive Influenza Type A (PCR) Influenza Type B (PCR) RSV RNA Qual (PCR) SARS-CoV-2 RNA (RT-PCR) 11/13/22 11/13/22 11/13/22 02:03 05:30 07:01 WBC 17.9 H RBC 3.89 L Hgb 10.6 L Hct 34.6 L MCV 88.9 MCH 27.2 MCHC 30.6 L RDW 15.5 Plt Count 217 MPV 9.9 Immature Gran % (Auto) 0.5 H Neut % (Auto) 85.6 H Lymph % (Auto) 8.0 L [place] % (Auto) 5.3 Eos % (Auto) 0.3 Baso % (Auto) 0.3 Lymph # (Auto) 1.4 [place] # (Auto) 0.9 Eos # (Auto) 0.1 Baso # (Auto) 0.1 Abs Immat Gran (auto) 0.09 H Absolute Neuts (auto) 15.3 H Absolute Nucleated RBC 0.000 Nucleated RBC % (auto) 0.0 Smear Tech's Comments PT 13.7 H INR 1.2 H APTT 29.2 Sodium Potassium Chloride Carbon Dioxide Anion Gap BUN Creatinine Estim Creat Clear Calc Estimated GFR POC Glucose Random Glucose Fasting Glucose Lactic Acid 1.7 Lactic Acid F/U @ 2Hr Lactic Acid F/U @ 4Hr Calcium Magnesium Total Bilirubin Direct Bilirubin AST ALT Alkaline Phosphatase Troponin I High Sens B-Natriuretic Peptide Total Protein Albumin Urine Color Urine Appearance Urine pH Ur Specific [place] Urine Protein Urine Glucose (UA) Urine Ketones Urine Blood Urine Nitrite Ur Leukocyte Esterase Urine RBC Urine WBC Ur Squamous Epith Cells Urine Bacteria Hyaline Casts Salicylates Acetaminophen Hepatitis A IgM Ab Hep Bs Antigen Hep Bs Antibody Hep B Core Total Ab Hepatitis C Ab (EIA) Influenza Type A (PCR) Influenza Type B (PCR) RSV RNA Qual (PCR) SARS-CoV-2 RNA (RT-PCR) 11/13/22 11/13/22 11/13/22 07:01 07:11 08:01 WBC RBC Hgb Hct MCV MCH MCHC RDW Plt Count MPV Immature Gran % (Auto) Neut % (Auto) Lymph % (Auto) [place] % (Auto) Eos % (Auto) Baso % (Auto) Lymph # (Auto) [place] # (Auto) Eos # (Auto) Baso # (Auto) Abs Immat Gran (auto) Absolute Neuts (auto) Absolute Nucleated RBC Nucleated RBC % (auto) Smear Tech's Comments PT INR APTT Sodium Potassium Chloride Carbon Dioxide Anion Gap BUN Creatinine Estim Creat Clear Calc Estimated GFR POC Glucose 155 H Random Glucose Fasting Glucose Lactic Acid Lactic Acid F/U @ 2Hr Lactic Acid F/U @ 4Hr Calcium Magnesium Total Bilirubin Direct Bilirubin AST ALT Alkaline Phosphatase Troponin I High Sens 3217.8 H* D B-Natriuretic Peptide Total Protein Albumin Urine Color Dark Yellow Urine Appearance Clear Urine pH 6.5 Ur Specific [place] 1.015 Urine Protein Trace Urine Glucose (UA) Negative Urine Ketones Negative Urine Blood Small (1+) H Urine Nitrite Positive H Ur Leukocyte Esterase Moderate (2+) H Urine RBC >20 H Urine WBC 11-20 H Ur Squamous Epith Cells 0-2 Urine Bacteria 4+ Hyaline Casts 0-2 Salicylates Acetaminophen Hepatitis A IgM Ab Hep Bs Antigen Hep Bs Antibody Hep B Core Total Ab Hepatitis C Ab (EIA) Influenza Type A (PCR) Influenza Type B (PCR) RSV RNA Qual (PCR) SARS-CoV-2 RNA (RT-PCR) 11/13/22 11/13/22 11/13/22 10:33 11:12 16:39 WBC RBC Hgb Hct MCV MCH MCHC RDW Plt Count MPV Immature Gran % (Auto) Neut % (Auto) Lymph % (Auto) [place] % (Auto) Eos % (Auto) Baso % (Auto) Lymph # (Auto) [place] # (Auto) Eos # (Auto) Baso # (Auto) Abs Immat Gran (auto) Absolute Neuts (auto) Absolute Nucleated RBC Nucleated RBC % (auto) Smear Tech's Comments PT INR APTT Sodium Potassium Chloride Carbon Dioxide Anion Gap BUN Creatinine Estim Creat Clear Calc Estimated GFR POC Glucose 142 H 155 H Random Glucose Fasting Glucose Lactic Acid Lactic Acid F/U @ 2Hr Lactic Acid F/U @ 4Hr Calcium Magnesium Total Bilirubin Direct Bilirubin AST ALT Alkaline Phosphatase Troponin I High Sens 3516.0 H* B-Natriuretic Peptide Total Protein Albumin Urine Color Urine Appearance Urine pH Ur Specific [place] Urine Protein Urine Glucose (UA) Urine Ketones Urine Blood Urine Nitrite Ur Leukocyte Esterase Urine RBC Urine WBC Ur Squamous Epith Cells Urine Bacteria Hyaline Casts Salicylates Acetaminophen Hepatitis A IgM Ab Hep Bs Antigen Hep Bs Antibody Hep B Core Total Ab Hepatitis C Ab (EIA) Influenza Type A (PCR) Influenza Type B (PCR) RSV RNA Qual (PCR) SARS-CoV-2 RNA (RT-PCR) 11/13/22 11/14/22 11/14/22 20:10 05:45 05:45 WBC 9.8 RBC 3.54 L Hgb 9.7 L Hct 30.6 L MCV 86.4 MCH 27.4 MCHC 31.7 RDW 15.4 Plt Count 194 MPV 10.0 Immature Gran % (Auto) 0.4 Neut % (Auto) 77.9 H Lymph % (Auto) 12.0 L [place] % (Auto) 7.7 Eos % (Auto) 1.7 Baso % (Auto) 0.3 Lymph # (Auto) 1.1 L [place] # (Auto) 0.7 Eos # (Auto) 0.2 Baso # (Auto) 0.0 Abs Immat Gran (auto) 0.04 H Absolute Neuts (auto) 7.3 Absolute Nucleated RBC 0.000 Nucleated RBC % (auto) 0.0 Smear Tech's Comments PT INR APTT Sodium 140 Potassium 3.6 Chloride 108 Carbon Dioxide 24 Anion Gap 12 BUN 18 H Creatinine 1.36 Estim Creat Clear Calc 55.6 Estimated GFR 51 POC Glucose 170 H Random Glucose Fasting Glucose 116 H Lactic Acid Lactic Acid F/U @ 2Hr Lactic Acid F/U @ 4Hr Calcium 8.2 L Magnesium Total Bilirubin 3.6 H Direct Bilirubin 1.7 H AST 106 H ALT 282 H Alkaline Phosphatase 181 H Troponin I High Sens B-Natriuretic Peptide Total Protein 5.2 L Albumin 3.1 L Urine Color Urine Appearance Urine pH Ur Specific [place] Urine Protein Urine Glucose (UA) Urine Ketones Urine Blood Urine Nitrite Ur Leukocyte Esterase Urine RBC Urine WBC Ur Squamous Epith Cells Urine Bacteria Hyaline Casts Salicylates Acetaminophen Hepatitis A IgM Ab Hep Bs Antigen Hep Bs Antibody Hep B Core Total Ab Hepatitis C Ab (EIA) Influenza Type A (PCR) Influenza Type B (PCR) RSV RNA Qual (PCR) SARS-CoV-2 RNA (RT-PCR) 11/14/22 11/14/22 11/14/22 06:35 07:24 11:27 WBC RBC Hgb Hct MCV MCH MCHC RDW Plt Count MPV Immature Gran % (Auto) Neut % (Auto) Lymph % (Auto) [place] % (Auto) Eos % (Auto) Baso % (Auto) Lymph # (Auto) [place] # (Auto) Eos # (Auto) Baso # (Auto) Abs Immat Gran (auto) Absolute Neuts (auto) Absolute Nucleated RBC Nucleated RBC % (auto) Smear Tech's Comments PT INR APTT Sodium Potassium Chloride Carbon Dioxide Anion Gap BUN Creatinine Estim Creat Clear Calc Estimated GFR POC Glucose 119 H 143 H Random Glucose Fasting Glucose Lactic Acid Lactic Acid F/U @ 2Hr Lactic Acid F/U @ 4Hr Calcium Magnesium Total Bilirubin Direct Bilirubin AST ALT Alkaline Phosphatase Troponin I High Sens B-Natriuretic Peptide Total Protein Albumin Urine Color RED Urine Appearance Turbid Urine pH 7.0 Ur Specific [place] 1.015 Urine Protein TNP Urine Glucose (UA) TNP Urine Ketones 15 Urine Blood Large (3+) H Urine Nitrite TNP Ur Leukocyte Esterase Moderate (2+) H Urine RBC >20 H Urine WBC 11-20 H Ur Squamous Epith Cells 0-2 Urine Bacteria None Seen Hyaline Casts 0-2 Salicylates Acetaminophen Hepatitis A IgM Ab Hep Bs Antigen Hep Bs Antibody Hep B Core Total Ab Hepatitis C Ab (EIA) Influenza Type A (PCR) Influenza Type B (PCR) RSV RNA Qual (PCR) SARS-CoV-2 RNA (RT-PCR) 11/14/22 16:36 WBC RBC Hgb Hct MCV MCH MCHC RDW Plt Count MPV Immature Gran % (Auto) Neut % (Auto) Lymph % (Auto) [place] % (Auto) Eos % (Auto) Baso % (Auto) Lymph # (Auto) [place] # (Auto) Eos # (Auto) Baso # (Auto) Abs Immat Gran (auto) Absolute Neuts (auto) Absolute Nucleated RBC Nucleated RBC % (auto) Smear Tech's Comments PT INR APTT Sodium Potassium Chloride Carbon Dioxide Anion Gap BUN Creatinine Estim Creat Clear Calc Estimated GFR POC Glucose 145 H Random Glucose Fasting Glucose Lactic Acid Lactic Acid F/U @ 2Hr Lactic Acid F/U @ 4Hr Calcium Magnesium Total Bilirubin Direct Bilirubin AST ALT Alkaline Phosphatase Troponin I High Sens B-Natriuretic Peptide Total Protein Albumin Urine Color Urine Appearance Urine pH Ur Specific [place] Urine Protein Urine Glucose (UA) Urine Ketones Urine Blood Urine Nitrite Ur Leukocyte Esterase Urine RBC Urine WBC Ur Squamous Epith Cells Urine Bacteria Hyaline Casts Salicylates Acetaminophen Hepatitis A IgM Ab Hep Bs Antigen Hep Bs Antibody Hep B Core Total Ab Hepatitis C Ab (EIA) Influenza Type A (PCR) Influenza Type B (PCR) RSV RNA Qual (PCR) SARS-CoV-2 RNA (RT-PCR) Airway Mallampati Class: II TM Dist: >3cm Neck ROM: Full Loose/Missing/Broken Teeth: No Heart: RRR Lungs: CTA Assessment and Plan Assessment Anesthesia Assessment: Anesthesia Plan Discussed and Chart Reviewed Final Anesthetic Review Family History of Problems with Anesthesia: No History of Problems with Anesthesia: No NPO: Yes ASA Class: III and Emergency Final Preanesthetic Review: No Changes in Pt Med Stat, Meds/Allgs Chart Reviewed, Consent Obtained/Reviewed and Anes Risks/Benef Reviewed Patient Risk: High Procedure Risk: Low Anesthetic Plan Anesthetic Plan: GA Disposition: Standard PACU
--- NOTE | 2022-11-14 18:07 | P.PNCA_ITS ---
Subjective Subjective Date of Service: 11/14/22 Principal diagnosis: Elevated Trop, NSTEMI Interval history: Seen at 1115. Today he is observed resting in bed in no acute distress. He reports that he has no chest discomfort during the night or this morning. No br eathing troubles, heart palpitations. He denies abdominal discomfort at present. Witt catheter in place draining red urine. Lovenox has been stopped. Review of Systems Review of Systems As above Yes all other systems are reviewed and are negative Physical Exam Vital Signs: Last Vital Signs Temp 97.7 F 11/14/22 15:52 Pulse 90 11/14/22 15:52 Resp 17 11/14/22 15:52 BP 118/59 L 11/14/22 15:52 Pulse Ox 94 11/14/22 15:52 O2 Del Method Room Air 11/14/22 15:52 O2 Flow Rate 2 11/13/22 01:56 Oxygen Flow Rate 2 11/12/22 19:02 BMI result Body Mass Index 31.6 Const Other: Jaundice skin tone General: cooperative, comfortable and no acute distress Orientation/consciousness: patient oriented x3 Neck Neck: Yes normal visual inspection Resp Effort & Inspection: normal respiratory effort Auscultation: clear to auscultation bilaterally, no rales, no rhonchi and no wheezes Cardio Jugular venous distension: no JVD Rate: regular rate Rhythm: regular rhythm Heart sounds: S1 normal heart sound present, S2 normal heart sound present, no murmurs and no rubs GI Inspection: Yes normal to inspection Neuro General: patient oriented x3 Extrem General: Yes normal to inspection Psych Appearance: grossly normal Mental Status: mental status grossly normal Speech and movement: Normal speech and movement present Objective Labs and Meds 11/14/22 05:45 11/14/22 05:45 Lab results: Laboratory Results - last 24 hr 11/13/22 11/14/22 11/14/22 20:10 05:45 05:45 WBC 9.8 RBC 3.54 L Hgb 9.7 L Hct 30.6 L MCV 86.4 MCH 27.4 MCHC 31.7 RDW 15.4 Plt Count 194 MPV 10.0 Immature Gran % (Auto) 0.4 Neut % (Auto) 77.9 H Lymph % (Auto) 12.0 L [place] % (Auto) 7.7 Eos % (Auto) 1.7 Baso % (Auto) 0.3 Lymph # (Auto) 1.1 L [place] # (Auto) 0.7 Eos # (Auto) 0.2 Baso # (Auto) 0.0 Abs Immat Gran (auto) 0.04 H Absolute Neuts (auto) 7.3 Absolute Nucleated RBC 0.000 Nucleated RBC % (auto) 0.0 Sodium 140 Potassium 3.6 Chloride 108 Carbon Dioxide 24 Anion Gap 12 BUN 18 H Creatinine 1.36 Estim Creat Clear Calc 55.6 Estimated GFR 51 POC Glucose 170 H Fasting Glucose 116 H Calcium 8.2 L Total Bilirubin 3.6 H Direct Bilirubin 1.7 H AST 106 H ALT 282 H Alkaline Phosphatase 181 H Total Protein 5.2 L Albumin 3.1 L Urine Color Urine Appearance Urine pH Ur Specific [place] Urine Protein Urine Glucose (UA) Urine Ketones Urine Blood Urine Nitrite Ur Leukocyte Esterase Urine RBC Urine WBC Ur Squamous Epith Cells Urine Bacteria Hyaline Casts 11/14/22 11/14/22 11/14/22 06:35 07:24 11:27 WBC RBC Hgb Hct MCV MCH MCHC RDW Plt Count MPV Immature Gran % (Auto) Neut % (Auto) Lymph % (Auto) [place] % (Auto) Eos % (Auto) Baso % (Auto) Lymph # (Auto) [place] # (Auto) Eos # (Auto) Baso # (Auto) Abs Immat Gran (auto) Absolute Neuts (auto) Absolute Nucleated RBC Nucleated RBC % (auto) Sodium Potassium Chloride Carbon Dioxide Anion Gap BUN Creatinine Estim Creat Clear Calc Estimated GFR POC Glucose 119 H 143 H Fasting Glucose Calcium Total Bilirubin Direct Bilirubin AST ALT Alkaline Phosphatase Total Protein Albumin Urine Color RED Urine Appearance Turbid Urine pH 7.0 Ur Specific [place] 1.015 Urine Protein TNP Urine Glucose (UA) TNP Urine Ketones 15 Urine Blood Large (3+) H Urine Nitrite TNP Ur Leukocyte Esterase Moderate (2+) H Urine RBC >20 H Urine WBC 11-20 H Ur Squamous Epith Cells 0-2 Urine Bacteria None Seen Hyaline Casts 0-2 11/14/22 16:36 WBC RBC Hgb Hct MCV MCH MCHC RDW Plt Count MPV Immature Gran % (Auto) Neut % (Auto) Lymph % (Auto) [place] % (Auto) Eos % (Auto) Baso % (Auto) Lymph # (Auto) [place] # (Auto) Eos # (Auto) Baso # (Auto) Abs Immat Gran (auto) Absolute Neuts (auto) Absolute Nucleated RBC Nucleated RBC % (auto) Sodium Potassium Chloride Carbon Dioxide Anion Gap BUN Creatinine Estim Creat Clear Calc Estimated GFR POC Glucose 145 H Fasting Glucose Calcium Total Bilirubin Direct Bilirubin AST ALT Alkaline Phosphatase Total Protein Albumin Urine Color Urine Appearance Urine pH Ur Specific [place] Urine Protein Urine Glucose (UA) Urine Ketones Urine Blood Urine Nitrite Ur Leukocyte Esterase Urine RBC Urine WBC Ur Squamous Epith Cells Urine Bacteria Hyaline Casts Progress Note: A&P Assessment and plan (1) Non-ST elevation CO (NSTEMI): Status: Acute Assessment and Plan: [facility] [place] for sharp left and right-sided chest discomfort. In the ER he was noted to be septic with fever and concern for cholecystitis. His troponins were elevated initially at 244 then sonja up to 3516. His EKG did not show acute ST or T-wave changes. An echocardiogram was done showing normal Bi V function without noted wall motion abnormalities. He was started on Lovenox for anticoagulation and aspirin 81 mg daily. This morning he developed hematuria and his Lovenox was stopped. He denies having chest discomfort during the night or this morning. He continues to undergo treatment for his medical issues. Once he is clinically stable then timing of ischemic evaluation will be considered. EKG if he does report recurrent chest discomfort. We will follow along. Time Spent With Patient Time: Total time managing care of this patient today _20___ minutes. Chart review, documentation, interview and assessment Progress Note: Quality Stroke Does the patient have a stroke diagnosis?: No Procedures Date of Service Date of Service: 11/14/22
--- NOTE | 2022-11-14 19:31 | MHC.SHP ---
Pre-Procedural Eval Section A Date of Service: 11/14/22 The patient is an INPATIENT: Yes The History & Physical has been completed within 30 days and I have reviewed it.: Yes Section B Chief Complaint: hematuria, urinary retention, urethral stricture Allergies: Allergies Allergy/AdvReac Type Severity Reaction Status Date / Time No Known Allergies Allergy Verified 11/13/22 05:12 [No Known Allergies*] Plan Diagnosis/Plan: Unchanged I have reviewed the history and physical and performed a pertinent physical examination on my patient. No changes have occurred unless specified. Time Spent With Patient Time: Total time managing care of this patient today ____ minutes.
[2022-11-14 19:34] LABS: Hematocrit 28.9 % (42.0-52.0); Hemoglobin 9.2 g/dl (14.0-18.0)
--- NOTE | 2022-11-14 23:05 | P.OP_ITS ---
Operative Note Operative Note Date of Service: 11/14/22 Narrative: PREOP DIAGNOSIS: Urethral stricture, urinary retention, hematuria with clots POSTOP DIAGNOSIS: Urethral stricture, urinary retention, hematuria with clots PROCEDURE: CYSTOSCOPY URETHRAL DILATION INCISION OF URETHRAL STRICTURE CLOT EVACUATION ATTEMPTS AT REVISION OF CYSTOTOMY, REMOVAL OF SUPRAPUBIC TUBE Modifier (time) SURGEON: Donald Javier MD ONLINE MERCHANDISING COORDINATOR: Saurav Rogers MD ANESTHESIA: general Indications: Daniel is a 72-year-old gentleman who came to the ED with urinary retention evaluation with bedside cystoscopy noted urethral stricture. The patient subsequently had a suprapubic tube placed at the bedside. The patient has liver function abnormalities and was on Lovenox developed hematuria with clots. Details of procedure: The patient was brought into the operating room placed on the OR table in supine position. Levaquin 500 mg IV. General anesthesia was administered. The patient was repositioned into lithotomy position, prepped and draped in the usual sterile fashion. Time-out was done per protocol. A 22 fr cystoscope was placed transurethrally into the bladder. the stricture was seen in the proximal urethra an open-ended catheter was placed and a retrograde was done noting contrast entering the bladder. A guidewire was passed into the bladder. The urethral dilators were used starting with an 8 Spanish followed by a 10 Spanish. A 12 Spanish urethral dilator was not able to be passed as the stricture was dense. Attention was taken to the suprapubic catheter which was not able to irrigate well and the catheter was removed; attempts to gain access to the bladder through the cystotomy site were is not successful. The skin was re-prepped with Betadine. The skin incision was extended in a horizontal fashion at the pubis. The subcu tissue was incised with cautery. In an attempt to distend the bladder for better palpation, the bladder was filled through the 10 Spanish urethral catheter, however access into bladder from the suprapubic site was not identified. Dr. Rogers, urologist was called for assistance. Dr. Rogers used a pediatric cystoscope over the guidewire transurethrally and was able to pass the stricture and enter into the bladder. A urethratome with cold knife was then used and the stricture was incised at the 12 o'clock position. The 22 cystoscope was then passed into the bladder and the clots were evacuated with the [employer] evacuator. A [address] catheter was placed transurethrally. The suprapubic incision was copiously irrigated with antibiotic irrigation, the cystotomy site/small incised area in the rectus fascia was closed with 2-0 chromic. the subcu tissue was closed in 2 layers 2 0 chromic and 3-0 chromic. The skin was closed with subcuticular fashion, 3-0 Monocryl. dressings were applied. The patient was brought out of general in taken to recovery in stable condition. The procedure took extended time due to the dense stricture, 140 minutes. Complications: None Drains: [address] catheter, continuous irrigation was started in the operating room
[2022-11-15] VITALS (9 sets, daily range): BP systolic 100–133; BP diastolic 52–62; PULSE 69–84; RESP 16–18; TEMP 36.2–37; O2SAT 92–95
[2022-11-15 00:14] LABS: Glucose, Whole Blood 157 mg/dL (60-115)
[2022-11-15] MEDS: Piperacillin Sodium/Tazobactam 3.375 GM in 0.9 % Sodium Chloride 50 ML IV ×2 (00:27→05:31)
[2022-11-15] MEDS: 0.9 % Sodium Chloride Flush 3 ML SYRINGE IVFLUSH ×3 (00:27→17:23)
[2022-11-15] MEDS: Amitriptyline HCl 50 MG TABLET PO ×2 (00:28→21:09)
[2022-11-15] MEDS: Tamsulosin HCL 0.4 MG CAPSULE PO ×2 (00:28→21:09)
[2022-11-15] MEDS: Sennosides/Docusate Sodium TABLET 2 TAB PO ×2 (00:28→21:08)
[2022-11-15] MEDS: Gabapentin 100 MG CAPSULE 200 MG PO ×3 (00:28→21:08)
[2022-11-15] MEDS: Famotidine 20 MG TABLET PO ×2 (00:28→21:08)
[2022-11-15] MEDS: diazePAM 5 MG TABLET PO ×4 (00:29→21:09)
[2022-11-15] MEDS: Lactated Ringers 500 ML 20 ML IVCONT (04:22)
--- NOTE | 2022-11-15 04:56 | PC.NURSE ---
pt came up with 3 ways catheter with CBI, #1 bag was hang. sustained 2100 mL 2 hours later out put 2450 ml, hang #2 bag, monitoring I&O
[2022-11-15 06:31] LABS: Hematocrit 26.4 % (42.0-52.0); Hemoglobin 8.2 g/dl (14.0-18.0); Mean Corpuscular HGB Conc 31.1 g/dl (31.0-36.0); Mean Corpuscular Hemoglobin 27.4 pg (27.0-33.0); Mean Corpuscular Volume 88.3 fL (80.0-98.0); Mean Platelet Volume 10.2 fL (9.4-12.4); Platelet Count 177 X10*3/uL (160-400); Red Blood Count 2.99 X10*6/uL (4.60-5.80); Red Cell Distribution Width 15.5 % (11.0-16.0); White Blood Count 6.8 X10*3/uL (4.8-10.8)
[2022-11-15 07:02] LABS: Alanine Aminotransferase 168 U/L (0-40); Albumin Level 2.9 g/dL (3.5-5.0); Alkaline Phosphatase 161 U/L (39-117); Anion Gap 12 (12-20); Aspartate Amino Transferase 44 U/L (5-37); Bilirubin Direct 1.1 mg/dL (0.0-0.5); Bilirubin Total 2.1 mg/dL (0.0-1.0); Blood Urea Nitrogen 19 mg/dL (9-16); Calcium 7.8 mg/dL (8.4-10.2); Carbon Dioxide 24 mmol/L (22-29); Chloride 107 mmol/L (96-108); Estimated Glomerular Filt Rate 56; Glucose Fasting 126 mg/dL (60-99); Potassium 4.4 mmol/L (3.3-5.1); Sodium 139 mmol/L (135-145); Total Protein 4.9 g/dL (6.5-8.0)
[2022-11-15 07:23] LABS: Glucose, Whole Blood 121 mg/dL (60-115)
--- NOTE | 2022-11-15 09:04 | PC.NURSE ---
BP at 0904 100/52 R arm supine manual. Per MD hold lasix and amlodipine.
[2022-11-15] MEDS: Cholecalciferol (Vitamin D3) 25 MCG TABLET 50 MCG PO (09:13)
[2022-11-15] MEDS: PARoxetine HCL 10 MG TABLET PO (09:14)
[2022-11-15] MEDS: Atorvastatin Calcium 40 MG TABLET PO (09:14)
[2022-11-15] MEDS: Aspirin Enteric Coated 81 MG TABLET.DR PO (09:14)
[2022-11-15] MEDS: Finasteride 5 MG TABLET PO (09:14)
[2022-11-15] MEDS: polyethylene glycoL 3350 17 GM POWD.PACK PO (09:15)
[2022-11-15] MEDS: cefTRIAXone sodium 1 GM in 0.9 % Sodium Chloride 50 ML IV (10:55)
--- NOTE | 2022-11-15 10:55 | P.PNIM_ITS ---
Subjective Subjective Date of Service: 11/15/22 Interval History: Seen and evaluated Feels tired with no energy since last night blood pressure running soft hematuria clearing LFT trending down Review of Systems Review of Systems: Yes all other systems are reviewed and are negative Physical Exam Vital Signs: Vital Signs: Last Vital Signs Temp 97.6 F 11/15/22 07:19 Pulse 69 11/15/22 07:19 Resp 18 11/15/22 07:19 BP 100/52 L 11/15/22 09:03 Pulse Ox 93 11/15/22 07:19 O2 Del Method Room Air 11/15/22 07:19 O2 Flow Rate 3 11/15/22 02:42 Oxygen Flow Rate 3 11/14/22 23:10 BMI result Body Mass Index 31.6 Const: Other: Constitutional : Awake, interactive, frail, pale Neck : Normal inspection, Supple Cardiovascular : RRR, no JVP, no lower extremity edema Respiratory : good bilateral air entry, no crackles, wheezes or rhonchi Gastrointestinal: soft, lax, Normal bowel sounds, No tenderness in abd. Skin : Warm, Dry Neurological : Alert & oriented x3, No focal deficit Objective Data Active Medications Albuterol Sulfate (Albuterol Sulfate (0.083%) 2.5 Mg/3 Ml Vial.Neb) 2.5 mg INHALE ONCE PRN PRN Reason: Wheezing Amitriptyline HCl (Amitriptyline Hcl 50 Mg Tablet) 50 mg PO BEDTIME [facility] Last Admin: 11/15/22 00:28 Dose: 50 mg Documented By: DIPAK Amlodipine Besylate (Amlodipine Besylate 10 Mg Tablet) 10 mg PO DAILY [facility]; Protocol Last Admin: 11/15/22 09:23 Dose: Not Given Documented By: TAYLOR Non-Admin Reason: Decreased Blood Pressure Aspirin (Aspirin Enteric Coated 81 Mg Tablet.) 81 mg PO DAILY [facility] Last Admin: 11/15/22 09:14 Dose: 81 mg Documented By: TAYLOR Atorvastatin Calcium (Atorvastatin Calcium 40 Mg Tablet) 40 mg PO DAILY [facility] Last Admin: 11/15/22 09:14 Dose: 40 mg Documented By: TAYLOR Diazepam (Diazepam 5 Mg Tablet) 5 mg PO TID [facility] Last Admin: 11/15/22 09:15 Dose: 5 mg Documented By: TAYLOR Docusate Sodium (Docusate Sodium 100 Mg Capsule) 100 mg PO DAILY PRN PRN Reason: Constipation Famotidine (Famotidine 20 Mg Tablet) 20 mg PO BEDTIME [facility] Last Admin: 11/15/22 00:28 Dose: 20 mg Documented By: DIPAK Fentanyl (Fentanyl Citrate/Pf 100 Mcg/2 Ml Vial) 25 mcg IVPUSH Q5M PRN; Protocol PRN Reason: Pain, Moderate (Pain Scale 4-6 Finasteride (Finasteride 5 Mg Tablet) 5 mg PO DAILY [facility] Last Admin: 11/15/22 09:14 Dose: 5 mg Documented By: TAYLOR Furosemide (Furosemide 40 Mg Tablet) 40 mg PO DAILY [facility]; Protocol Last Admin: 11/15/22 09:24 Dose: Not Given Documented By: TAYLOR Non-Admin Reason: Decreased Blood Pressure Gabapentin (Gabapentin 100 Mg Capsule) 200 mg PO BID [facility] Last Admin: 11/15/22 09:14 Dose: 200 mg Documented By: TAYLOR Glucose (Glucose Gel 15 Gm Gel..Gram.) 15 gm PO Q15M PRN; Protocol PRN Reason: per Hypoglycemia Standing Ord. Hydromorphone HCl (Hydromorphone Hcl 0.5 Mg/0.5 Ml Syringe) 0.25 mg IVPUSH Q5M PRN; Protocol PRN Reason: Pain, Severe (Pain Scale 7-10) Lactated Ringer's (Lr) 500 mls @ 20 mls/hr IVCONT .Q24H [facility] Last Admin: 11/15/22 04:22 Dose: 20 mls/hr Documented By: DIPAK Dextrose (D10) 250 mls @ 750 mls/hr IV Q15M PRN; Protocol PRN Reason: per Hypoglycemia Standing Ord. Ceftriaxone Sodium 1 gm/ (Sodium Chloride) 50 mls @ 100 mls/hr IV Q24H [facility] Insulin Human Lispro (Insulin Lispro 100 Unit/Ml 3 Ml Vial) 0 unit SUBCUT QIDACHS [facility]; Protocol Last Admin: 11/15/22 09:21 Dose: Not Given Documented By: TAYLOR Non-Admin Reason: See Note Comments: BS 121 Ondansetron HCl (Ondansetron Hcl 4 Mg/2 Ml Vial) 4 mg IVPUSH Q8H PRN PRN Reason: Nausea and Vomiting Ondansetron HCl (Ondansetron Hcl 4 Mg/2 Ml Vial) 4 mg IVPUSH ONCE PRN PRN Reason: Nausea and Vomiting Paroxetine HCl (Paroxetine Hcl 10 Mg Tablet) 10 mg PO DAILY [facility] Last Admin: 11/15/22 09:14 Dose: 10 mg Documented By: TAYLOR Polyethylene Glycol (Polyethylene Glycol 3350 17 Gm Powd.Pack) 17 gm PO DAILY [facility] Last Admin: 11/15/22 09:15 Dose: 17 gm Documented By: TAYLOR Senna/Docusate Sodium (Sennosides/Docusate Sodium Tablet) 2 tab PO BEDTIME [facility] Last Admin: 11/15/22 00:28 Dose: 2 tab Documented By: DIPAK Sodium Chloride (0.9 % Sodium Chloride Flush 3 Ml Syringe) 3 ml IVFLUSH QSHIFT [facility] Last Admin: 11/15/22 09:21 Dose: 3 ml Documented By: TAYLOR Tamsulosin HCl (Tamsulosin Hcl 0.4 Mg Capsule) 0.4 mg PO BEDTIME [facility] Last Admin: 11/15/22 00:28 Dose: 0.4 mg Documented By: DIPAK Vitamin D (Cholecalciferol (Vitamin D3) 25 Mcg Tablet) 50 mcg PO DAILY [facility] Last Admin: 11/15/22 09:13 Dose: 50 mcg Documented By: TAYLOR Labs 11/15/22 05:50 11/15/22 05:50 Labs: Laboratory Results - last 24 hr 11/14/22 11/14/22 11/14/22 11:27 16:36 19:26 MCV MCH MCHC RDW Plt Count MPV Absolute Nucleated RBC Nucleated RBC % (auto) Anion Gap Estim Creat Clear Calc Estimated GFR POC Glucose 143 H 145 H Fasting Glucose Calcium Total Bilirubin Direct Bilirubin AST ALT Alkaline Phosphatase Total Protein Albumin Blood Type A Negative Antibody Screen NEGATIVE Crossmatch See Detail 11/15/22 11/15/22 11/15/22 00:11 05:50 05:50 MCV 88.3 MCH 27.4 MCHC 31.1 RDW 15.5 Plt Count 177 MPV 10.2 Absolute Nucleated RBC 0.000 Nucleated RBC % (auto) 0.0 Anion Gap 12 Estim Creat Clear Calc 60.0 Estimated GFR 56 POC Glucose 157 H Fasting Glucose 126 H Calcium 7.8 L Total Bilirubin 2.1 H Direct Bilirubin 1.1 H AST 44 H ALT 168 H Alkaline Phosphatase 161 H Total Protein 4.9 L Albumin 2.9 L Blood Type Antibody Screen Crossmatch 11/15/22 07:18 MCV MCH MCHC RDW Plt Count MPV Absolute Nucleated RBC Nucleated RBC % (auto) Anion Gap Estim Creat Clear Calc Estimated GFR POC Glucose 121 H Fasting Glucose Calcium Total Bilirubin Direct Bilirubin AST ALT Alkaline Phosphatase Total Protein Albumin Blood Type Antibody Screen Crossmatch Microbiology Microbiology Results: Microbiology 11/12/22 19:59 Blood Culture - Final Blood - Venous Klebsiella pneumoniae 11/12/22 19:29 Blood Culture - Final Blood - Venous Klebsiella pneumoniae 11/13/22 08:01 Urine Culture - Final Urine clean catch - Urine mar[place] top Assessment and Plan (1) Clot hematuria: Status: Acute (2) Elevated LFTs: Status: Acute (3) Urinary retention: Status: Acute (4) Gallbladder sludge: Status: Acute (5) Transaminitis: Status: Acute (6) Urinary tract infection: Status: Acute (7) Bacteremia due to Klebsiella pneumoniae: Status: Acute Plan 72-year-old male with past medical history of chronic heart failure with Pres erved ejection fraction, chronic hypoxic respiratory failure due to COPD, type 2 diabetes, urinary retention, paroxysmal AFib, HTN, CAD?, history of etoh dependence, mood disorder, hepatic steatosis presented with chest pain, found to have sepsis, urinary retention, nstemi, elevated lfts sepsis due to acute cholecystitis vs UTI complicated by Klebsiella bacteremia change Abx to Ceftriaxone No evidence of CCY clinically per surgery team Transaminitis could be r\t ischemic hepatitis ? sepsis ? trending down urinary retention complicated by hematuria now s/p suprapubic closure started on CBI post urology intervention follow clearance of urine symptomatic anemia dropped to 8 with increase weakness and recent NSTEMI transfuse a unit of blood NSTEMI lovenox 1mg/kg q12 48hrs finished continue asa, statin Cardio following, echo - no WMA DM insulin obeisty weight loss paroxysmal afib in sinus, not on AC or rate control at home full code reason for continued hospitalization: hematuria, bacteremia pending safe discharge plan Time Spent With Patient Time: Total time managing care of this patient today ____ minutes. Quality Stroke Does the patient have a stroke diagnosis?: No VTE Prior VTE?: No VTE Risk Level:: Medical - moderate - high VTE Device Contraindication: Treatment Not Indicated VTE Drug Contraindication: N/A - Med Ordered
[2022-11-15 11:28] LABS: Glucose, Whole Blood 144 mg/dL (60-115)
--- NOTE | 2022-11-15 13:29 | MHC.CM.PN ---
Per MD rounds patient will not discharge today. Patient will receive a blood transfusion for drop in H/H. [facility] Discharge is anticipated 1-2 days.
--- NOTE | 2022-11-15 14:09 | HO.POSTANES ---
Post Anesthesia Evaluation Post Anesthesia Evaluation Vital Signs: Vital Signs Temp Pulse Resp BP Pulse Ox O2 Del Method O2 Flow Rate 11/15/22 11:31 97.1 F 75 18 117/58 L 11/15/22 11:13 97.2 F 73 16 107/55 L 11/15/22 09:03 100/52 L 11/15/22 07:19 97.6 F 69 18 116/55 L 93 Room Air 11/15/22 02:42 97.2 F 76 18 100/55 L 94 Nasal Cannula 3 Anesthesia: General Mental Status: Awake Pain Control: Satisfactory Nausea/Vomiting: None Hydration: Adequate Anesthesia-Related Issues: No Anes. Related Issues
[2022-11-15 16:43] LABS: Glucose, Whole Blood 172 mg/dL (60-115)
[2022-11-15] MEDS: Insulin Lispro 100 UNIT/ML 3 ML VIAL SUBCUT ×2 (17:23→21:09)
[2022-11-15 20:20] LABS: Glucose, Whole Blood 158 mg/dL (60-115)
[2022-11-16] VITALS (7 sets, daily range): BP systolic 114–163; BP diastolic 57–77; PULSE 70–88; RESP 16–18; TEMP 36–36.5; O2SAT 94–98
[2022-11-16] MEDS: HYDROmorphone HCl 0.5 MG/0.5 ML SYRINGE 0.25 MG IVPUSH (00:13)
[2022-11-16] MEDS: Lactated Ringers 500 ML 20 ML IVCONT (04:17)
[2022-11-16 07:36] LABS: Glucose, Whole Blood 111 mg/dL (60-115)
[2022-11-16] MEDS: Finasteride 5 MG TABLET PO (07:42)
[2022-11-16] MEDS: Atorvastatin Calcium 40 MG TABLET PO (07:42)
[2022-11-16] MEDS: diazePAM 5 MG TABLET PO ×3 (07:42→20:54)
[2022-11-16] MEDS: PARoxetine HCL 10 MG TABLET PO (07:42)
[2022-11-16] MEDS: Gabapentin 100 MG CAPSULE 200 MG PO ×2 (07:42→20:54)
[2022-11-16] MEDS: Cholecalciferol (Vitamin D3) 25 MCG TABLET 50 MCG PO (07:42)
[2022-11-16] MEDS: Furosemide 40 MG TABLET PO (07:43)
[2022-11-16] MEDS: polyethylene glycoL 3350 17 GM POWD.PACK PO (07:43)
[2022-11-16] MEDS: Aspirin Enteric Coated 81 MG TABLET.DR PO (07:43)
[2022-11-16] MEDS: 0.9 % Sodium Chloride Flush 3 ML SYRINGE IVFLUSH ×3 (07:43→20:57)
[2022-11-16 07:51] LABS: Hematocrit 31.4 % (42.0-52.0); Hemoglobin 9.7 g/dl (14.0-18.0); Mean Corpuscular HGB Conc 30.9 g/dl (31.0-36.0); Mean Corpuscular Hemoglobin 27.3 pg (27.0-33.0); Mean Corpuscular Volume 88.5 fL (80.0-98.0); Mean Platelet Volume 10.9 fL (9.4-12.4); Platelet Count 175 X10*3/uL (160-400); Red Blood Count 3.55 X10*6/uL (4.60-5.80); Red Cell Distribution Width 15.3 % (11.0-16.0)
[2022-11-16 08:04] LABS: Anion Gap 16 (12-20); Blood Urea Nitrogen 15 mg/dL (9-16); Calcium 8.4 mg/dL (8.4-10.2); Carbon Dioxide 23 mmol/L (22-29); Chloride 106 mmol/L (96-108); Creatinine Clr Calc Pharmacy 70.6; Estimated Glomerular Filt Rate > 60; Glucose Random 112 mg/dL (60-115); Potassium 4.5 mmol/L (3.3-5.1); Sodium 140 mmol/L (135-145)
[2022-11-16] MEDS: cefTRIAXone sodium 1 GM in 0.9 % Sodium Chloride 50 ML IV (10:32)
[2022-11-16] MEDS: Lactulose 20 GM/30 ML SOLUTION PO ×2 (10:32→20:53)
[2022-11-16] MEDS: Docusate Sodium 100 MG CAPSULE PO ×2 (10:32→20:54)
[2022-11-16 11:24] LABS: Glucose, Whole Blood 187 mg/dL (60-115)
--- NOTE | 2022-11-16 11:33 | P.PNIM_ITS ---
Subjective Subjective Date of Service: 11/16/22 Interval History: Seen and evaluated Feels little better this morning blood pressure running soft hematuria clearing but still on CBI with pinkish urine LFT trending down Review of Systems Review of Systems: Yes all other systems are reviewed and are negative Physical Exam Vital Signs: Vital Signs: Last Vital Signs Temp 97.7 F 11/16/22 07:58 Pulse 80 11/16/22 10:39 Resp 16 11/16/22 07:58 BP 114/71 11/16/22 10:39 Pulse Ox 94 11/16/22 10:39 O2 Del Method Nasal Cannula 11/16/22 07:58 O2 Flow Rate 3.5 11/16/22 07:58 Oxygen Flow Rate 3 11/14/22 23:10 BMI result Body Mass Index 31.6 Const: Other: Constitutional : Awake, interactive, frail, pale Neck : Normal inspection, Supple Cardiovascular : RRR, no JVP, no lower extremity edema Respiratory : good bilateral air entry, no crackles, wheezes or rhonchi Gastrointestinal: soft, lax, Normal bowel sounds, No tenderness in abd. Skin : Warm, Dry URology: on CBI with pinkish color urine Neurological : Alert & oriented x3, No focal deficit Objective Data Active Medications Albuterol Sulfate (Albuterol Sulfate (0.083%) 2.5 Mg/3 Ml Vial.Neb) 2.5 mg INHALE ONCE PRN PRN Reason: Wheezing Amitriptyline HCl (Amitriptyline Hcl 50 Mg Tablet) 50 mg PO BEDTIME [facility] Last Admin: 11/15/22 21:09 Dose: 50 mg Documented By: BOUBACAR Amlodipine Besylate (Amlodipine Besylate 10 Mg Tablet) 10 mg PO DAILY [facility]; Protocol Last Admin: 11/15/22 09:23 Dose: Not Given Documented By: TAYLOR Non-Admin Reason: Decreased Blood Pressure Aspirin (Aspirin Enteric Coated 81 Mg Tablet.) 81 mg PO DAILY [facility] Last Admin: 11/16/22 07:43 Dose: 81 mg Documented By: HERIBERTO Atorvastatin Calcium (Atorvastatin Calcium 40 Mg Tablet) 40 mg PO DAILY [facility] Last Admin: 11/16/22 07:42 Dose: 40 mg Documented By: HERIBERTO Diazepam (Diazepam 5 Mg Tablet) 5 mg PO TID [facility] Last Admin: 11/16/22 07:42 Dose: 5 mg Documented By: HERIBERTO Docusate Sodium (Docusate Sodium 100 Mg Capsule) 100 mg PO DAILY PRN PRN Reason: Constipation Docusate Sodium (Docusate Sodium 100 Mg Capsule) 100 mg PO BID [facility] Last Admin: 11/16/22 10:32 Dose: 100 mg Documented By: HERIBERTO Famotidine (Famotidine 20 Mg Tablet) 20 mg PO BEDTIME [facility] Last Admin: 11/15/22 21:08 Dose: 20 mg Documented By: BOUBACAR Fentanyl (Fentanyl Citrate/Pf 100 Mcg/2 Ml Vial) 25 mcg IVPUSH Q5M PRN; Protocol PRN Reason: Pain, Moderate (Pain Scale 4-6 Finasteride (Finasteride 5 Mg Tablet) 5 mg PO DAILY [facility] Last Admin: 11/16/22 07:42 Dose: 5 mg Documented By: HERIBERTO Furosemide (Furosemide 40 Mg Tablet) 40 mg PO DAILY [facility]; Protocol Last Admin: 11/16/22 07:43 Dose: 40 mg Documented By: HERIBERTO Gabapentin (Gabapentin 100 Mg Capsule) 200 mg PO BID [facility] Last Admin: 11/16/22 07:42 Dose: 200 mg Documented By: HERIBERTO Glucose (Glucose Gel 15 Gm Gel..Gram.) 15 gm PO Q15M PRN; Protocol PRN Reason: per Hypoglycemia Standing Ord. Hydromorphone HCl (Hydromorphone Hcl 0.5 Mg/0.5 Ml Syringe) 0.25 mg IVPUSH Q5M PRN; Protocol PRN Reason: Pain, Severe (Pain Scale 7-10) Last Admin: 11/16/22 00:13 Dose: 0.25 mg Documented By: BOUBACAR Lactated Ringer's (Lr) 500 mls @ 20 mls/hr IVCONT .Q24H [facility] Last Admin: 11/16/22 04:17 Dose: 20 mls/hr Documented By: BOUBACAR Dextrose (D10) 250 mls @ 750 mls/hr IV Q15M PRN; Protocol PRN Reason: per Hypoglycemia Standing Ord. Ceftriaxone Sodium 1 gm/ (Sodium Chloride) 50 mls @ 100 mls/hr IV Q24H [facility] Last Infusion: 11/16/22 11:10 Dose: 0 mls/hr Documented By: HERIBERTO Insulin Human Lispro (Insulin Lispro 100 Unit/Ml 3 Ml Vial) 0 unit SUBCUT QIDACHS [facility]; Protocol Last Admin: 11/16/22 07:40 Dose: Not Given Documented By: HERIBERTO Non-Admin Reason: No Insulin Coverage Lactulose (Lactulose 20 Gm/30 Ml Solution) 20 gm PO BID [facility] Last Admin: 11/16/22 10:32 Dose: 20 gm Documented By: HERIBERTO Ondansetron HCl (Ondansetron Hcl 4 Mg/2 Ml Vial) 4 mg IVPUSH Q8H PRN PRN Reason: Nausea and Vomiting Ondansetron HCl (Ondansetron Hcl 4 Mg/2 Ml Vial) 4 mg IVPUSH ONCE PRN PRN Reason: Nausea and Vomiting Paroxetine HCl (Paroxetine Hcl 10 Mg Tablet) 10 mg PO DAILY [facility] Last Admin: 11/16/22 07:42 Dose: 10 mg Documented By: HERIBERTO Polyethylene Glycol (Polyethylene Glycol 3350 17 Gm Powd.Pack) 17 gm PO DAILY [facility] Last Admin: 11/16/22 07:43 Dose: 17 gm Documented By: HERIBERTO Senna/Docusate Sodium (Sennosides/Docusate Sodium Tablet) 2 tab PO BEDTIME [facility] Last Admin: 11/15/22 21:08 Dose: 2 tab Documented By: BOUBACAR Sodium Chloride (0.9 % Sodium Chloride Flush 3 Ml Syringe) 3 ml IVFLUSH QSHIFT [facility] Last Admin: 11/16/22 07:43 Dose: 3 ml Documented By: HERIBERTO Tamsulosin HCl (Tamsulosin Hcl 0.4 Mg Capsule) 0.4 mg PO BEDTIME [facility] Last Admin: 11/15/22 21:09 Dose: 0.4 mg Documented By: BOUBACAR Vitamin D (Cholecalciferol (Vitamin D3) 25 Mcg Tablet) 50 mcg PO DAILY [facility] Last Admin: 11/16/22 07:42 Dose: 50 mcg Documented By: HERIBERTO Labs 11/16/22 05:55 11/16/22 05:55 Labs: Laboratory Results - last 24 hr 11/15/22 11/15/22 11/16/22 16:40 20:16 05:55 MCV 88.5 MCH 27.3 MCHC 30.9 L RDW 15.3 Plt Count 175 MPV 10.9 Absolute Nucleated RBC 0.000 Nucleated RBC % (auto) 0.0 Anion Gap Estim Creat Clear Calc Estimated GFR POC Glucose 172 H 158 H Random Glucose Calcium 11/16/22 11/16/22 11/16/22 05:55 07:25 11:16 MCV MCH MCHC RDW Plt Count MPV Absolute Nucleated RBC Nucleated RBC % (auto) Anion Gap 16 Estim Creat Clear Calc 70.6 Estimated GFR > 60 POC Glucose 111 187 H Random Glucose 112 Calcium 8.4 D Microbiology Microbiology Results: Microbiology 11/12/22 19:59 Blood Culture - Final Blood - Venous Klebsiella pneumoniae 11/12/22 19:29 Blood Culture - Final Blood - Venous Klebsiella pneumoniae Assessment and Plan (1) Bacteremia due to Klebsiella pneumoniae: Status: Acute (2) Clot hematuria: Status: Acute (3) Elevated LFTs: Status: Acute (4) Urinary retention: Status: Acute (5) Transaminitis: Status: Acute (6) Sepsis: Status: Acute Plan 72-year-old male with past medical history of chronic heart failure with Preserved ejection fraction, chronic hypoxic respiratory failure due to COPD, type 2 diabetes, urinary retention, paroxysmal AFib, HTN, CAD?, history of etoh dependence, mood disorder, hepatic steatosis presented with chest pain, found to have sepsis, urinary retention, nstemi, elevated lfts sepsis due to acute cholecystitis vs UTI complicated by Klebsiella bacteremia change Abx to Ceftriaxone to finish total 14 days Abx (started 11/13) No evidence of CCY clinically per surgery team Transaminitis could be r\t ischemic hepatitis ? sepsis ? trending down urinary retention complicated by hematuria now s/p suprapubic closure started on CBI post urology intervention follow clearance of urine urology following symptomatic anemia improved to 9.6 after 1 unit PRBCs monitor h&H NSTEMI Finished 48 hrs of Lovenox echo - no WMA continue statin, hold ASA for bleeding Cardio following, to do ischemic evaluation most likely with nuclear stress test.?baby ASA. DM insulin obeisty weight loss paroxysmal afib in sinus, not on AC or rate control at home full code reason for continued hospitalization: hematuria, bacteremia pending safe dis charge plan Time Spent With Patient Time: Total time managing care of this patient today ____ minutes. Quality Stroke Does the patient have a stroke diagnosis?: No VTE Prior VTE?: No VTE Risk Level:: Medical - moderate - high VTE Device Contraindication: Treatment Not Indicated VTE Drug Contraindication: N/A - Med Ordered
[2022-11-16] MEDS: Insulin Lispro 100 UNIT/ML 3 ML VIAL SUBCUT ×2 (11:34→16:40)
[2022-11-16 16:27] LABS: Glucose, Whole Blood 171 mg/dL (60-115)
[2022-11-16 20:29] LABS: Glucose, Whole Blood 141 mg/dL (60-115)
[2022-11-16] MEDS: Sennosides/Docusate Sodium TABLET 2 TAB PO (20:53)
[2022-11-16] MEDS: Famotidine 20 MG TABLET PO (20:54)
[2022-11-16] MEDS: Amitriptyline HCl 50 MG TABLET PO (20:54)
[2022-11-16] MEDS: Tamsulosin HCL 0.4 MG CAPSULE PO (20:54)
[2022-11-17] VITALS (8 sets, daily range): BP systolic 110–154; BP diastolic 58–78; PULSE 74–96; RESP 16–18; TEMP 36–36.8; O2SAT 92–97
[2022-11-17] MEDS: Phenazopyridine HCL 200 MG TABLET PO ×4 (02:48→20:03)
[2022-11-17 06:47] LABS: Hemoglobin 10.2 g/dl (14.0-18.0); Mean Corpuscular HGB Conc 30.9 g/dl (31.0-36.0); Mean Corpuscular Hemoglobin 27.3 pg (27.0-33.0); Mean Corpuscular Volume 88.2 fL (80.0-98.0); Mean Platelet Volume 10.2 fL (9.4-12.4); Platelet Count 225 X10*3/uL (160-400); Red Blood Count 3.74 X10*6/uL (4.60-5.80); Red Cell Distribution Width 15.3 % (11.0-16.0); White Blood Count 8.1 X10*3/uL (4.8-10.8)
[2022-11-17 07:13] LABS: Glucose, Whole Blood 130 mg/dL (60-115)
[2022-11-17] MEDS: polyethylene glycoL 3350 17 GM POWD.PACK PO (08:52)
[2022-11-17] MEDS: Lactulose 20 GM/30 ML SOLUTION PO ×2 (08:52→20:03)
[2022-11-17] MEDS: Finasteride 5 MG TABLET PO (08:52)
[2022-11-17] MEDS: Cholecalciferol (Vitamin D3) 25 MCG TABLET 50 MCG PO (08:53)
[2022-11-17] MEDS: diazePAM 5 MG TABLET PO ×3 (08:54→20:02)
[2022-11-17] MEDS: Atorvastatin Calcium 40 MG TABLET PO (08:54)
[2022-11-17] MEDS: Docusate Sodium 100 MG CAPSULE PO ×2 (08:54→20:03)
[2022-11-17] MEDS: Gabapentin 100 MG CAPSULE 200 MG PO ×2 (08:54→20:02)
[2022-11-17] MEDS: Furosemide 40 MG TABLET PO (08:55)
[2022-11-17] MEDS: PARoxetine HCL 10 MG TABLET PO (08:55)
[2022-11-17] MEDS: cefTRIAXone sodium 1 GM in 0.9 % Sodium Chloride 50 ML IV (10:48)
--- NOTE | 2022-11-17 10:53 | P.PNIM_ITS ---
Subjective Subjective Date of Service: 11/17/22 Interval History: Seen and evaluated Feels better overall urine bloody color after holding CBI blood pressure running soft Review of Systems Review of Systems: Yes all other systems are reviewed and are negative Physical Exam Vital Signs: Vital Signs: Last Vital Signs Temp 96.8 F 11/17/22 07:45 Pulse 82 11/17/22 08:51 Resp 18 11/17/22 07:45 BP 110/59 L 11/17/22 08:51 Pulse Ox 94 11/17/22 08:42 O2 Del Method Nasal Cannula 11/17/22 07:45 O2 Flow Rate 2 11/17/22 07:45 Oxygen Flow Rate 2 11/16/22 23:00 BMI result Body Mass Index 31.6 Const: Other: Constitutional : Awake, interactive, frail, pale Neck : Normal inspection, Supple Cardiovascular : RRR, no JVP, no lower extremity edema Respiratory : good bilateral air entry, no crackles, wheezes or rhonchi Gastrointestinal: soft, lax, Normal bowel sounds, No tenderness in abd. Skin : Warm, Dry URology: dark colored urine w hematuria Neurological : Alert & oriented x3, No focal deficit Objective Data Active Medications Albuterol Sulfate (Albuterol Sulfate (0.083%) 2.5 Mg/3 Ml Vial.Neb) 2.5 mg INHALE ONCE PRN PRN Reason: Wheezing Amitriptyline HCl (Amitriptyline Hcl 50 Mg Tablet) 50 mg PO BEDTIME [facility] Last Admin: 11/16/22 20:54 Dose: 50 mg Documented By: TERESA Amlodipine Besylate (Amlodipine Besylate 5 Mg Tablet) 5 mg PO DAILY [facility]; Protocol Aspirin (Aspirin Enteric Coated 81 Mg Tablet.) 81 mg PO DAILY [facility] Last Admin: 11/16/22 07:43 Dose: 81 mg Documented By: HERIBERTO Atorvastatin Calcium (Atorvastatin Calcium 40 Mg Tablet) 40 mg PO DAILY [facility] Last Admin: 11/17/22 08:54 Dose: 40 mg Documented By: JONN Diazepam (Diazepam 5 Mg Tablet) 5 mg PO TID [facility] Last Admin: 11/17/22 08:54 Dose: 5 mg Documented By: JONN Docusate Sodium (Docusate Sodium 100 Mg Capsule) 100 mg PO DAILY PRN PRN Reason: Constipation Docusate Sodium (Docusate Sodium 100 Mg Capsule) 100 mg PO BID [facility] Last Admin: 11/17/22 08:54 Dose: 100 mg Documented By: JONN Famotidine (Famotidine 20 Mg Tablet) 20 mg PO BEDTIME [facility] Last Admin: 11/16/22 20:54 Dose: 20 mg Documented By: TERESA Fentanyl (Fentanyl Citrate/Pf 100 Mcg/2 Ml Vial) 25 mcg IVPUSH Q5M PRN; Protocol PRN Reason: Pain, Moderate (Pain Scale 4-6 Finasteride (Finasteride 5 Mg Tablet) 5 mg PO DAILY [facility] Last Admin: 11/17/22 08:52 Dose: 5 mg Documented By: JONN Furosemide (Furosemide 40 Mg Tablet) 40 mg PO DAILY [facility]; Protocol Last Admin: 11/17/22 08:55 Dose: 40 mg Documented By: JONN Gabapentin (Gabapentin 100 Mg Capsule) 200 mg PO BID [facility] Last Admin: 11/17/22 08:54 Dose: 200 mg Documented By: JONN Glucose (Glucose Gel 15 Gm Gel..Gram.) 15 gm PO Q15M PRN; Protocol PRN Reason: per Hypoglycemia Standing Ord. Hydromorphone HCl (Hydromorphone Hcl 0.5 Mg/0.5 Ml Syringe) 0.25 mg IVPUSH Q5M PRN; Protocol PRN Reason: Pain, Severe (Pain Scale 7-10) Last Admin: 11/16/22 00:13 Dose: 0.25 mg Documented By: BOUBACAR Dextrose (D10) 250 mls @ 750 mls/hr IV Q15M PRN; Protocol PRN Reason: per Hypoglycemia Standing Ord. Ceftriaxone Sodium 1 gm/ (Sodium Chloride) 50 mls @ 100 mls/hr IV Q24H [facility] Last Admin: 11/17/22 10:48 Dose: 100 mls/hr Documented By: JONN Insulin Human Lispro (Insulin Lispro 100 Unit/Ml 3 Ml Vial) 0 unit SUBCUT QIDACHS [facility]; Protocol Last Admin: 11/17/22 07:19 Dose: Not Given Documented By: JONN Non-Admin Reason: No Insulin Coverage Lactulose (Lactulose 20 Gm/30 Ml Solution) 20 gm PO BID [facility] Last Admin: 11/17/22 08:52 Dose: 20 gm Documented By: JONN Ondansetron HCl (Ondansetron Hcl 4 Mg/2 Ml Vial) 4 mg IVPUSH Q8H PRN PRN Reason: Nausea and Vomiting Ondansetron HCl (Ondansetron Hcl 4 Mg/2 Ml Vial) 4 mg IVPUSH ONCE PRN PRN Reason: Nausea and Vomiting Paroxetine HCl (Paroxetine Hcl 10 Mg Tablet) 10 mg PO DAILY [facility] Last Admin: 11/17/22 08:55 Dose: 10 mg Documented By: JONN Phenazopyridine HCl (Phenazopyridine Hcl 200 Mg Tablet) 200 mg PO TID [facility] Last Admin: 11/17/22 10:47 Dose: 200 mg Documented By: JONN Polyethylene Glycol (Polyethylene Glycol 3350 17 Gm Powd.Pack) 17 gm PO DAILY [facility] Last Admin: 11/17/22 08:52 Dose: 17 gm Documented By: JONN Senna/Docusate Sodium (Sennosides/Docusate Sodium Tablet) 2 tab PO BEDTIME [facility] Last Admin: 11/16/22 20:53 Dose: 2 tab Documented By: TERESA Sodium Chloride (0.9 % Sodium Chloride Flush 3 Ml Syringe) 3 ml IVFLUSH QSHIFT [facility] Last Admin: 11/17/22 08:49 Dose: Not Given Documented By: JONN Non-Admin Reason: IV Running Tamsulosin HCl (Tamsulosin Hcl 0.4 Mg Capsule) 0.4 mg PO BEDTIME [facility] Last Admin: 11/16/22 20:54 Dose: 0.4 mg Documented By: TERESA Vitamin D (Cholecalciferol (Vitamin D3) 25 Mcg Tablet) 50 mcg PO DAILY [facility] Last Admin: 11/17/22 08:53 Dose: 50 mcg Documented By: JONN Labs 11/17/22 06:04 11/16/22 05:55 Labs: Laboratory Results - last 24 hr 11/16/22 11/16/22 11/16/22 11:16 16:23 20:08 MCV MCH MCHC RDW Plt Count MPV Absolute Nucleated RBC Nucleated RBC % (auto) POC Glucose 187 H 171 H 141 H 11/17/22 11/17/22 06:04 06:59 MCV 88.2 MCH 27.3 MCHC 30.9 L RDW 15.3 Plt Count 225 D MPV 10.2 Absolute Nucleated RBC 0.000 Nucleated RBC % (auto) 0.0 POC Glucose 130 H Assessment and Plan (1) Bacteremia due to Klebsiella pneumoniae: Status: Acute (2) Clot hematuria: Status: Acute Plan 72-year-old male with past medical history of chronic heart failure with Preserved ejection fraction, chronic hypoxic respiratory failure due to COPD, type 2 diabetes, urinary retention, paroxysmal AFib, HTN, CAD?, history of etoh dependence, mood disorder, hepatic steatosis presented with chest pain, found to have sepsis, urinary retention, nstemi, elevated lfts sepsis due to acute cholecystitis vs UTI complicated by Klebsiella bacteremia on Ceftriaxone to finish total 14 days Abx (started 11/13) No evidence of CCY clinically per surgery team Transaminitis likely related to sepsis trending down urinary retention complicated by hematuria now s/p suprapubic closure on CBI post urology intervention follow clearance of urine urology following, keep oseguera at time of discharge, to follow as OP for voiding trials in 2 weeks symptomatic anemia improved to 10 after 1 unit PRBCs monitor h&H NSTEMI Finished 48 hrs of Lovenox echo - no WMA continue statin, hold ASA for bleeding Cardio following, to do ischemic evaluation most likely with nuclear stress test.?baby ASA. DM insulin obeisty weight loss paroxysmal afib in sinus, not on AC or rate control at home full code reason for continued hospitalization: hematuria, bacteremia pending safe discharge plan Time Spent With Patient Time: Total time managing care of this patient today ____ minutes. Quality Stroke Does the patient have a stroke diagnosis?: No VTE Prior VTE?: No VTE Risk Level:: Medical - moderate - high VTE Device Contraindication: Treatment Not Indicated VTE Drug Contraindication: N/A - Med Ordered
--- NOTE | 2022-11-17 11:08 | MHC.CM.PN ---
Per MD no discharge today. Patient will return to [facility] on PO ABX via BLS.
[2022-11-17 11:33] LABS: Glucose, Whole Blood 236 mg/dL (60-115)
[2022-11-17] MEDS: Insulin Lispro 100 UNIT/ML 3 ML VIAL SUBCUT ×3 (12:28→20:44)
[2022-11-17] MEDS: Glycerin Adult SUPP.RECT 1 SUPP PR (12:50)
[2022-11-17] MEDS: 0.9 % Sodium Chloride Flush 3 ML SYRINGE IVFLUSH ×2 (15:15→20:03)
[2022-11-17 16:45] LABS: Glucose, Whole Blood 179 mg/dL (60-115)
[2022-11-17] MEDS: Famotidine 20 MG TABLET PO (20:03)
[2022-11-17] MEDS: Tamsulosin HCL 0.4 MG CAPSULE PO (20:03)
[2022-11-17] MEDS: Amitriptyline HCl 50 MG TABLET PO (20:03)
[2022-11-17] MEDS: Sennosides/Docusate Sodium TABLET 2 TAB PO (20:03)
[2022-11-17 20:36] LABS: Glucose, Whole Blood 217 mg/dL (60-115)
[2022-11-18] MEDS: Cyclobenzaprine HCl 5 MG TABLET PO (00:58)
[2022-11-18] MEDS: Acetaminophen 325 MG TABLET 650 MG PO (00:58)
--- NOTE | 2022-11-18 02:10 | PC.NURSE ---
Pt c/o 02/19 tenderness and throbbing hypogastric area towards his penile area, no distention noted, CBI is draining well with orange urine, MD made aware, Dr. Guzmán ordered Flexeril and Tylenol po, meds given, pt felt relief and slept after.
[2022-11-18 04:00] VITALS: BP 119/61; PULSE 85; RESP 16; TEMP 36.4; O2SAT 94
[2022-11-18 06:45] LABS: Hematocrit 31.6 % (42.0-52.0); Mean Corpuscular HGB Conc 31.6 g/dl (31.0-36.0); Mean Corpuscular Hemoglobin 27.9 pg (27.0-33.0); Mean Corpuscular Volume 88.3 fL (80.0-98.0); Platelet Count 247 X10*3/uL (160-400); Red Blood Count 3.58 X10*6/uL (4.60-5.80); Red Cell Distribution Width 15.2 % (11.0-16.0)
[2022-11-18 07:13] LABS: Glucose, Whole Blood 131 mg/dL (60-115)
[2022-11-18 07:18] VITALS: BP 125/69; PULSE 86; RESP 16; TEMP 36.8; O2SAT 92
[2022-11-18 07:43] VITALS: BP 111/60; PULSE 75; RESP 16; TEMP 36.5; O2SAT 93
[2022-11-18] MEDS: 0.9 % Sodium Chloride Flush 3 ML SYRINGE IVFLUSH (10:07)
[2022-11-18] MEDS: cefTRIAXone sodium 1 GM in 0.9 % Sodium Chloride 50 ML IV (10:07)
[2022-11-18 10:20] VITALS: BP 152/86
[2022-11-18] MEDS: Furosemide 40 MG TABLET PO (10:30)
[2022-11-18] MEDS: Phenazopyridine HCL 200 MG TABLET PO (10:31)
[2022-11-18] MEDS: Cholecalciferol (Vitamin D3) 25 MCG TABLET 50 MCG PO (10:31)
[2022-11-18] MEDS: Atorvastatin Calcium 40 MG TABLET PO (10:31)
[2022-11-18] MEDS: PARoxetine HCL 10 MG TABLET PO (10:31)
[2022-11-18] MEDS: Gabapentin 100 MG CAPSULE 200 MG PO (10:31)
[2022-11-18] MEDS: Finasteride 5 MG TABLET PO (10:32)
[2022-11-18 11:12] LABS: Glucose, Whole Blood 189 mg/dL (60-115)
[2022-11-18] MEDS: Insulin Lispro 100 UNIT/ML 3 ML VIAL SUBCUT (11:39)
[2022-11-18] MEDS: diazePAM 5 MG TABLET PO (11:39)
--- NOTE | 2022-11-18 11:50 | PM.DS ---
DS: Providers Provider Date of Service: 11/18/22 Date of admission: 11/13/22 01:49 Primary care physician: Tim Seaman MD Consults: 11/13/22 01:47 Consult to Cardiology Routine Consulting Provider: [facility] [place] Cardiovascular Services Reason for consultation: NSTEMI Has provider been notified: Yes Consult to Gastroenterology Routine Consulting Provider: Bridget Olivas Reason for consultation: transaminitis Has provider been notified: No Consult to General Surgery Routine Consulting Provider: [facility] [place] General Surgeons Reason for consultation: Acute edwardo? 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 COPD O2 dependent, type 2 diabetes, urinary retention, depression, history of AFib, HTN, hypothyroidism, CAD, history of dysphagia, presents to the hospital with complaints of not feeling well.? Patient reports that he? had lunch and shortly after felt ill.? He states that he then developed chest pain, he describes the chest pain on left side, heavy, nonradiating, constant, a out of 10, lasting several hours and resolving by the time he got to the ED. he is also feeling is that his belly is bloated, although denies any abdominal pain, he states having nausea with no vomiting, no diarrhea or constipation, the bloating started yesterday. ? he is complaining of urinary retention, as well as dysuria for several days.? He states that he does [employer] well for quite a while.? Otherwise he denies any headache, no change in vision, no palpitations, no shortness of breath, no lower extremity edema.? On arrival to the ED vitals are significant for temp of 101.5 degrees, heart rate of 134, satting 90% on 2 L of oxygen Labs are significant for WBC count of 15.6, hemoglobin of 11.5, hematocrit 36, creatinine of 1.49 with a baseline of 1.4, lactic acid of 3.4 improved with IV fluids, total bili of 4.5, AST of 569, ALT of 595, alk-phos of 236, troponin of 244 increasedTo 936, BNP of 34, UA pending collection, several trials of catheter insertion were attempted by ED physician with no success, urology was consulted with plan for catheter? insertion in a.m. Abdominal CT is showing intermediate density material layering within the gallbladder unclear specificity, CT also showed urinary bladder distension, few foci of gas within the bladder lumen recommending correlation with any history of instrumentation, ?ultrasound of the abdomen showed cholelithiasis, gallbladder sludge and mild wall thickening which is nonspecific Hospital course The patient was admitted for evalution of sepsis due to UTI complicated by Klebsiella bacteremia. treated with Ceftriaxone to finish total 14 days Abx (started 11/13). No evidence of CCY clinically per surgery team as liver enzymes trended down. Noted to have urinary retention complicated by hematuria now s/p suprapubic closure and placement of catheter on CBI post urology interventio. with clearance of urine over the course of hospital stay. urology following, asked keep the [address] oseguera at time of discharge, to follow as OP for voiding trials in 2 weeks as the patient was found to have uretheral stricture requiring surgical intervention. To follow with urology as outpatient. He developed symptomatic anemia 2/2 hematuria. improved to 10 after 1 unit PRBCs and remained stable. on Admission was diagnosied with NSTEMI. Finished 48 hrs of Lovenox and started on baby Aspirin as an echo was done showing no WMA. To continue Atorvastatin 40mg daily with a plan to follow ith cardiology as outpatient for further ischemic work up. Urine color turned orange from usage of Pyridium. Start baby Aspirin Continue Ceftin as prescribed To follow cardiology dr Lamas as outpatient for further work up To follow with Urology Dr Molina in 2 weeks for voiding trials and removing the catheter Time Spent with Patient Time attestation: Total time managing care of this patient today ____ minutes. Discharge coordination time: Greater than 30 minutes Quality: Safe Use of Opioids Does Pt have an Active Cancer Diagnosis on the Problem List?: No Quality: Stroke Does the patient have a stroke diagnosis?: No Physical Exam Vital Signs: Vital Signs: Last Vital Signs Temp 97.7 F 11/18/22 07:43 Pulse 75 11/18/22 07:43 Resp 16 11/18/22 07:43 BP 152/86 H 11/18/22 10:20 Pulse Ox 93 11/18/22 07:43 O2 Del Method Nasal Cannula 11/18/22 07:43 O2 Flow Rate 2 11/18/22 07:43 Oxygen Flow Rate 2 11/17/22 23:00 BMI result Body Mass Index 31.6 Const: Other: Constitutional : Awake, interactive, frail Neck : Normal inspection, Supple Cardiovascular : RRR, no JVP, no lower extremity edema Respiratory : good bilateral air entry, no crackles, wheezes or rhonchi Gastrointestinal: soft, lax, Normal bowel sounds, No tenderness in abd. Skin : Warm, Dry URology: orange colored urine with no blood clots Neurological : Alert & oriented x3, No focal deficit DS: Data Data Completed and Pending Completed studies during hospitalization [Text1]: Procedures Insertion of Endotracheal Airway into Trachea, Via Natural or Artificial Opening (10/17/20) Insertion of Endotracheal Airway into Trachea, Via Natural or Artificial Opening Endoscopic (10/17/20) Introduction of Vasopressor into Peripheral Vein, Percutaneous Approach (10/17/20) Respiratory Ventilation, Greater than 96 Consecutive Hours (10/17/20) Labs on day of discharge: Laboratory Results - last 24 hr 11/17/22 11/17/22 11/18/22 16:39 20:25 05:44 WBC 9.0 RBC 3.58 L Hgb 10.0 L Hct 31.6 L MCV 88.3 MCH 27.9 MCHC 31.6 RDW 15.2 Plt Count 247 MPV 10.0 Absolute Nucleated RBC 0.000 Nucleated RBC % (auto) 0.0 POC Glucose 179 H 217 H 11/18/22 11/18/22 07:10 11:08 WBC RBC Hgb Hct MCV MCH MCHC RDW Plt Count MPV Absolute Nucleated RBC Nucleated RBC % (auto) POC Glucose [address] scan - abdomen: Radiologist's impression: ITS Impressions Chest X-Ray 11/12/22 20:34 IMPRESSION: 1. Few streaky left basilar opacities may reflect atelectasis. 2. Persistent elevation of the right hemidiaphragm. Abdomen/Pelvis CT 11/12/22 21:36 IMPRESSION: * Intermediate density material layering within the gallbladder, unclear if this could reflect noncalcified stones, sludge or gallbladder wall thickening, recommend correlation with nonemergent right upper quadrant ultrasound. There are no findings to suggest acute cholecystitis. * Urinary bladder is distended. Few foci of gas within the bladder lumen recommend correlation with any history of instrumentation. * Hepatic steatosis. Borderline enlarged portacaval node present since 2020 and only slightly increased in size may be reactive in setting of underlying liver disease. Abdomen Ultrasound 11/13/22 00:34 IMPRESSION: * Cholelithiasis and gallbladder sludge. There is mild gallbladder wall thickening, which is nonspecific. No pericholecystic fluid or sonographic Chicas sign to suggest cholecystitis. * Hepatic steatosis. Guidance Fluoroscopy 11/14/22 23:19 FINDINGS AND IMPRESSION: The urinary bladder has a trabeculated-appearing wall and a bilobed appearance. There is iodinated contrast within the bladder. Fluoroscopic imaging was performed during the cystoscopy procedure. Discharge Plan Discharge Anticipated Discharge Date/Time: 11/18/22 11:34 Patient Disposition: er [facility] Discharge Diagnosis: Sepsis , Bacteremia from UTI URine retention - uretheral stricture ischemic heart disease Referrals: Tim Seaman MD [Primary Care Provider] - 1 Week Discharge Medications: New aspirin 81 mg Tablet,Delayed Release (Dr/Ec) 81 mg PO DAILY Qty: 30 0RF cefuroxime axetil 500 mg tablet 500 mg PO BID Qty: 12 0RF Continued atorvastatin 40 mg tablet 1 tab PO DAILY tamsulosin 0.4 mg capsule 1 cap PO BEDTIME losartan 100 mg tablet 1 tab PO DAILY finasteride 5 mg tablet 1 tab PO DAILY furosemide 40 mg Tablet 40 mg PO DAILY Qty: 30 0RF Protocol: Hold for SBP< HOLD for SBP < : 90 amlodipine 5 mg Tablet 10 mg PO DAILY Qty: 30 0RF Protocol: Hold for SBP< HOLD for SBP < : 90 famotidine 20 mg Tablet 20 mg PO BEDTIME Qty: 30 0RF polyethylene glycol 3350 [Miralax] 17 gram powder in packet 17 g PO DAILY Qty: 30 0RF paroxetine HCl 10 mg Tablet 10 mg PO DAILY gabapentin 100 mg Capsule 200 mg PO BID potassium chloride 10 mEq Tablet,Er Particles/Crystals 10 meq PO DAILY cholecalciferol (vitamin D3) 50 mcg (2,000 unit) Tablet 50 mcg PO DAILY sennosides-docusate sodium [Senna Plus] 8.6-50 mg tablet 2 tab PO BEDTIME diazepam 5 mg Tablet 5 mg PO TID amitriptyline 50 mg Tablet 50 mg PO BEDTIME omeprazole 20 mg Capsule,Delayed Release(Dr/Ec) 20 mg PO DAILY naproxen [Naprosyn] 500 mg Tablet 500 mg PO Q12H PRN (Reason: Pain) Probiotic 1 cap PO BID Discontinued phenazopyridine [Pyridium] 200 mg Tablet 200 mg TID Discharge Orders: Discharge Order (Routine); Ordered 11/18/22 Ordered By: Dawna Núñez Diet: Advance to usual diet Activity on Discharge: As tolerated Stand Alone Forms: Patient Portal Discharge page Care Plan Goals: Read below Health Concerns: Read below Plan of Treatment: Read below Assessment: You were admitted to the hospital for treatment of urine infection complicated by sepsis, urine retention and evidence of heart attack. You were seen by cardiology and treated with blood thinners. started on Aspirin. to follow cardiology as outpatient blood culture grew bacteria called E.Coli. treated with IV antibiotics. needs to finish course at home. seen by urologist for urine retention. has a surgical intervention done and placed on Continous bladder irrigation. will keep the catheter at time of discharge. recieved blood transfusion with good response. Start baby Aspirin Continue Ceftin as prescribed To follow cardiology dr Lamas as outpatient for further work up To follow with Urology Dr Molina in 2 weeks for voiding trials and removing the catheter
--- NOTE | 2022-11-18 13:11 | MHC.CM.PN ---
PT WILL RETURN TO [facility] TODAY AT 1400 HOURS
--- NOTE | 2022-11-20 09:41 | P.CDIM_ITS ---
PROVIDER RESPONSE TEXT: To clarify, the appropriate diagnosis supported by the clinical indicators: Acute blood loss anemia QUERY TEXT: PHYSICIAN'S DOCUMENTATION REQUEST Date of Query: 11/17/2022 08:27 AM EDT Patient Name: Daniel Lozada Admit Date: 11/13/2022 Dear Dawna Núñez, A review of the medical record indicates additional documentation may be needed. Please review below and update the documentation accordingly. Clinical Indicators: Urinary retention complicated by hematuria, pinkish urine, frail, pale, symptomatic anemia dropped to 8 with increased weakness, BP 97/56 L Transfuse 1 unit blood H/H 8.2/26.4 improved with transfusion - H/H 9.7/31.4 Acute blood loss anemia Other Unable to determine Other (explain) Clinically unable to determine (explain) Thank you, Essie Fontaine, CCS, CDIS Use of terms such as suspected, likely, concern for, or probable (associated with a specific diagnosi s that is being evaluated, monitored, or treated as if it exists) are acceptable and can be coded in the inpatient se tting, when documented at the time of discharge. Please use your independent medical judgment in providing your response. THIS QUERY IS PART OF THE PERMANENT MEDICAL RECORD
== END 2022-11-18 14:42 | disposition skilled nursing facility (03) | DRG 853 ==
LOC: HO.ED 11-13 01:12 → HO.EDOVER 11-13 01:57 → HO.S3 11-13 04:07
PROVIDERS: Internal Medicine; Urology; Admitting Provider Internal Medicine; Emergency Provider Emergency Medicine Emergency Medical Services; PCP Internal Medicine; Visit Provider Student in an Organized Health Care Education/Training Program
PROC: 0TJB8ZZ Inspection of Bladder, Via Natural or Artificial Opening Endoscopic (ICD-10-PCS; CPT 52000; principal; 2022-11-14 20:00)
DX: A41.9 Sepsis, unspecified organism (principal); I21.4 Non-ST elevation (NSTEMI) myocardial infarction; K72.00 Acute and subacute hepatic failure without coma; I50.32 Chronic diastolic (congestive) heart failure; N13.8 Other obstructive and reflux uropathy; K81.0 Acute cholecystitis; D62 Acute posthemorrhagic anemia; I69.341 Monoplegia of lower limb following cerebral infarction affecting right dominant side; Z99.81 Dependence on supplemental oxygen; E11.9 Type 2 diabetes mellitus without complications; J44.9 Chronic obstructive pulmonary disease, unspecified; N35.812 Other bulbous urethral stricture, male; I45.10 Unspecified right bundle-branch block; E66.9 Obesity, unspecified; I48.0 Paroxysmal atrial fibrillation; T83.098A Other mechanical complication of other urinary catheter, initial encounter; Y73.8 Miscellaneous gastroenterology and urology devices associated with adverse incidents, not elsewhere classified; R31.0 Gross hematuria; B96.1 Klebsiella pneumoniae [K. pneumoniae] as the cause of diseases classified elsewhere; I11.0 Hypertensive heart disease with heart failure; E03.9 Hypothyroidism, unspecified; Z68.31 Body mass index [BMI] 31.0-31.9, adult; N40.1 Benign prostatic hyperplasia with lower urinary tract symptoms; Z20.822 Contact with and (suspected) exposure to COVID-19; I25.2 Old myocardial infarction; Z79.82 Long term (current) use of aspirin; Z79.899 Other long term (current) drug therapy
CPT/HCPCS: 0241U; 36415; 71045; 74176; 76705; 80048; 80053; 80076; 80143; 80179; 81001; 82947; 83605; 83735; 83880; 84484; 85014; 85018; 85025; 85027; 85610; 85730; 86704; 86706; 86709; 86803; 86850; 86900; 86901; 86923; 87040; 87077; 87086; 87186; 87205; 87340; 93005; 93306; 97110; 97116; 97162; 99285; C1726; C1758; C1769; J0692; J0696; J1170; J1650; J1885; J1956; J2370; J2405; J2543; J3010; J3370; P9016; Q9957; Q9967

== ENCOUNTER → 2022-12-06 15:41 | Outpatient (BNVA) | payer MEDICARE, OTHER, SELFPAY | PROVIDERS: PCP Internal Medicine; Referring Provider Internal Medicine; Visit Provider Internal Medicine Cardiovascular Disease | DX: I21.4 Non-ST elevation (NSTEMI) myocardial infarction (principal) | CPT/HCPCS: 99212 ==

== ENCOUNTER 2022-12-21 | Outpatient (REF) | payer MEDICARE, OTHER, SELFPAY | END 2022-12-21 00:01 | LOC: CF | PROVIDERS: PCP Internal Medicine; Visit Provider Urology | DX: R35.1 Nocturia (principal); R33.9 Retention of urine, unspecified; N35.919 Unspecified urethral stricture, male, unspecified site; I21.4 Non-ST elevation (NSTEMI) myocardial infarction | CPT/HCPCS: 51705; 99212 ==

== ENCOUNTER 2023-01-08 13:06 | Inpatient (IN) | payer MEDICARE, OTHER, SELFPAY ==
[2023-01-08] VITALS (10 sets, daily range): BP systolic 77–130; BP diastolic 47–66; PULSE 81–112; RESP 16–20; TEMP 36.5–38.8; O2SAT 90–96; BMI 30.7
--- NOTE | ~2023-01-08 | CT_ITS ---
EXAMINATION: CT ANGIOGRAM OF THE CHEST WITH AND WITHOUT CONTRAST (CT PULMONARY ANGIOGRAM FOR PE) CLINICAL INFORMATION: Syncope, elevated d-dimer COMPARISON: CT abdomen and pelvis 11/12/2022, CT chest 10/17/2020 TECHNIQUE: Prior to contrast administration, noncontrast localization images were obtained. Subsequently, multidetector volumetric imaging was performed from the thoracic inlet to below the diaphragms following the administration of 80 mL Omnipaque 350 intravenous contrast. No contrast reaction reported Sagittal, coronal, and MIP oblique sagittal reformatted images were obtained on the CT workstation, uploaded to PACS, and reviewed. This CT examination was performed using dose optimization techniques as appropriate, variously including the following: *Automated exposure control *Adjustment of mA and/or kV according to patient size (this includes techniques or standardized protocols for targeted exams where dose is matched to indication/reason for exam; i.e. extremities or head) *Use of iterative reconstruction technique Total exam dose-length product 468 mGy-cm FINDINGS: QUALITY OF STUDY/CONTRAST BOLUS: Satisfactory. Significant respiratory motion artifact degrades image quality. PULMONARY ARTERIES: There is no central or subsegmental pulmonary emboli. Evaluation for subsegmental pulmonary limited secondary to extensive motion artifact. THORACIC AORTA: No aneurysm. Atherosclerotic disease in the thoracic aorta and at the origin of the great vessels. No aneurysm. LUNG: There is significant respiratory motion artifact. Scattered groundglass opacities favoring atelectasis. Mild bronchial wall thickening. No dense consolidation. PLEURA: No pleural effusion or pneumothorax. MEDIASTINUM: There are calcified thyroid nodules which are not well evaluated on CT. The heart is enlarged. No pericardial effusion. Three-vessel coronary artery disease. Aortic valve calcifications. No evidence of septal bowing or right heart strain. CHEST WALL/AXILLA: No axillary or internal mammary lymphadenopathy. OSSEOUS STRUCTURES: No acute or suspicious osseous abnormality. UPPER ABDOMEN: Unremarkable. No reflux of contrast into the hepatic veins to suggest elevated right heart pressures. CT/CT angio chest PE protocol IMPRESSION: 1. No central or subsegmental pulmonary emboli. Evaluation for subsegmental pulmonary emboli is limited secondary to extensive respiratory motion artifact. 2. Enlarged heart. Three-vessel coronary artery disease. 3. Calcified thyroid nodules, not well evaluated on CT. 4. Mild bronchial wall thickening suggesting small airways disease. No dense consolidation. VTE: negative
--- NOTE | ~2023-01-08 | XR_ITS ---
EXAMINATION: XR CHEST CLINICAL INFORMATION: COPD, low O2 COMPARISON: Chest x-ray on 11/12/2022 TECHNIQUE: Frontal view of the chest was obtained. FINDINGS: No significant abnormality is noted involving the heart, lungs, mediastinum, bony thorax or soft tissues. XR/XR chest 1V IMPRESSION: Unremarkable examination.
--- NOTE | 2023-01-08 13:17 | ECG_ITS ---
Test Reason : WEAKNESS Blood Pressure : / mmHG Vent. Rate : 109 BPM Atrial Rate : 109 BPM P-R Int : 162 ms QRS Dur : 100 ms QT Int : 336 ms P-R-T Axes : 052 005 048 degrees QTc Int : 452 ms Poor data quality, interpretation may be adversely affected Sinus tachycardia Incomplete right bundle branch block Inferior infarct (cited on or before 17-MAY-2018) Abnormal ECG When compared with ECG of 13-NOV-2022 00:02, No significant change was found Referred By: Bekah Bailey Electronically Signed By:HERNANDO MARTIN MD
--- NOTE | 2023-01-08 13:19 | ED.GENADULT ---
HPI - General Adult General Chief complaint: Weakness Stated complaint: syncopal episode, ams, per ems Time Seen by Provider: 01/08/23 13:11 Source: patient and EMS Mode of arrival: EMS Limitations: other (Dementia) History of Present Illness HPI narrative: Patient comes to the emergency room complaining syncopal episode. Patient does remember passing out, but does not remember the details. According to EMS, patient was in the residential, they were trying to get him out of his chair and walk with his walker to the bathroom to help him clean up. Patient syncopized when he stood up. Patient states that he does not have chest pain or shortness of breath. Patient complaining of feeling weak. Patient did not fall or hit his head. Patient was caught by the staff and return to his bed prior to falling. According to the staff, patient's initial blood pressure was in the 80s. When EMS arrived, it was 125 systolic. Related Data Home Medications Medication Instructions Recorded Confirmed cholecalciferol (vitamin D3) 50 50 mcg PO DAILY 02/17/22 01/08/23 mcg (2,000 unit) tablet gabapentin 100 mg capsule 200 mg PO BID 02/17/22 01/08/23 paroxetine HCl 10 mg tablet 10 mg PO DAILY 02/17/22 01/08/23 potassium chloride 10 mEq 10 meq PO DAILY 02/17/22 01/08/23 tablet,extended release(part/cryst) sennosides 8.6 mg-docusate sodium 2 tab PO BEDTIME 02/17/22 01/08/23 50 mg tablet (Senna Plus) Probiotic 1 cap PO BID 11/13/22 01/08/23 diazepam 5 mg tablet 5 mg PO TID 11/13/22 01/08/23 naproxen 500 mg tablet (Naprosyn) 500 mg PO Q12H PRN Pain 11/13/22 01/08/23 omeprazole 20 mg capsule,delayed 20 mg PO DAILY 11/13/22 01/08/23 release amitriptyline 25 mg tablet 25 mg PO DAILY 12/06/22 01/08/23 atorvastatin 40 mg tablet 40 mg PO DAILY 12/06/22 01/08/23 finasteride 5 mg tablet 5 mg PO DAILY 12/06/22 01/08/23 losartan 100 mg tablet 100 mg PO DAILY 12/06/22 01/08/23 tamsulosin 0.4 mg capsule 0.4 mg PO BEDTIME 12/06/22 01/08/23 acetaminophen 325 mg tablet 650 mg PO Q4H PRN Pain 01/08/23 01/08/23 carboxymethylcellulose sodium 1 % 1 drp ophthalmic (eye) DAILY PRN 01/08/23 01/08/23 eye drops (Artificial Tears Dry Eyes (carboxymethylcellulose)) famotidine 20 mg tablet 20 mg PO DAILY 01/08/23 01/08/23 Previous Rx's Medication Instructions Recorded furosemide 40 mg tablet 40 mg PO DAILY #30 tabs 10/31/20 polyethylene glycol 3350 17 gram 17 g PO DAILY #30 ea 10/31/20 oral powder packet (Miralax) aspirin 81 mg tablet,delayed 81 mg PO DAILY #30 tabs 11/18/22 release Allergies Allergy/AdvReac Type Severity Reaction Status Date / Time No Known Allergies Allergy Verified 12/21/22 11:02 [No Known Allergies*] Review of Systems Review of Systems: Constitutional : No Weight loss, No Fever, No Chills, No Night Sweats, No Fatigue, No Malaise ENT/Mouth : No Hearing loss, No Ear Pain, No Nasal Congestion, No Sinus Pain, No Hoarseness, No sore throat, No Rhinorrhea, No Swallowing Difficulty Eyes: No Eye Pain, No Swelling, No Redness, No Foreign Body, No Discharge, No Vision Changes Cardiovascular : No Chest Pain, No SOB, No Dyspnea on Exertion, No Orthopnea, No Edema, No Palpitations Respiratory : No Cough, No Sputum, No Wheezing, No Smoke Exposure, No Dyspnea Gastrointestinal : No Nausea, No Vomiting, No Diarrhea, No Constipation, No abdominal Pain, No Hematochezia, No Melena Genitourinary : no irregular bleeding, No Dysuria, No Urinary Frequency, No Hematuria, No Urinary Incontinence, No Urgency, No Flank Pain, No Urinary Flow Changes, No Hesitancy Musculoskeletal : No joint pain, No Myalgias, No Joint Swelling Skin : No Skin Lesions, No rash Neuro : No Weakness, No Numbness, No Paresthesias, complaining of a syncopal episode, No Dizziness, No Headache Psych : No Anxiety/Panic, No Depression, No SI/HI/AH/VH, No Social Issues, Heme/Lymph: No Bruising, No Bleeding,No Lymphadenopathy Endocrine : No Polyuria, No Polydipsia, No Temperature Intolerance [facility] Past Medical History Medical History Abdomen enlarged Acute on chronic heart failure with preserved ejection fraction (HFpEF) Acute on chronic respiratory failure with hypoxia and hypercapnia Acute renal failure Acute respiratory failure with hypoxia Acute upper gastrointestinal bleeding Afib STIVEN (acute kidney injury) Altered mental status Aspiration pneumonitis Atypical pneumonia Borderline diabetic CHF exacerbation Congestive heart failure Hypertension Hyperthyroidism Hypoxia Ileus Multifocal pneumonia Myocardial infarct Partial obstruction of small intestine Pneumonia Pulmonary aspiration Sepsis associated hypotension Toxic metabolic encephalopathy Urethral stricture in male Urinary catheter in place Urinary tract infection Surgical History History of shoulder surgery History of surgery of head Family History Family History Mother No problems noted. Father Heart disease Social History Social History Household Members: None Housing: [facility] Do you presently have visiting nurse or other home services: No (private [facility]) Alcohol intake: former Year quit: 1989 Patient Tobacco Use Status: Never used Tobacco Smoked in Last 30 Days: No Substance Use Type: Unknown Advance Directives: Yes Advance Directives on File: Yes Advance Directives Date on File: 11/01/20 service: No Current occupational status: retired Physical Exam ED Vital Signs: Vital Signs - 24 hr 01/08/23 13:11 01/08/23 13:23 01/08/23 13:42 Temperature 101.8 F H Pulse Rate 112 H 109 H Respiratory Rate 20 18 Blood Pressure 105/54 L 92/49 L Pulse Oximetry 90 L 92 Oxygen Delivery Method Room Air Room Air Oxygen Flow Rate 01/08/23 14:31 01/08/23 15:23 01/08/23 13:29 Temperature 98.3 F Pulse Rate 95 89 82 Respiratory Rate 20 18 Blood Pressure 115/55 L 124/59 L 119/65 Pulse Oximetry 96 93 Oxygen Delivery Method Nasal Cannula Nasal Cannula Oxygen Flow Rate 2 2 01/08/23 17:55 01/08/23 17:49 01/08/23 17:50 Temperature 98.3 F Pulse Rate 81 81 103 H Respiratory Rate 19 Blood Pressure 128/65 128/65 77/47 L Pulse Oximetry 94 Oxygen Delivery Method Room Air Oxygen Flow Rate BMI result Body Mass Index 30.7 Const Other: Appearance: Alert. Oriented X3. No acute distress. Eyes: Pupils equal, round and reactive to light. ENT: Pharynx normal. Neck: Normal inspection. Neck supple. No lymph nodes noted. No crepitus CVS: Normal heart rate and rhythm. Pulses normal. Normal S1 and S2 Respiratory: No respiratory distress. Breath sounds normal. No Wheezing. No rales Abdomen: Soft and nontender. No rigidity. No distention. Skin: Skin warm and dry. Normal skin color. Normal skin turgor. Extremities: No lower extremity edema. No Lacerations. No Rash Neuro: Oriented X 3. No motor deficit. No sensory deficit. Moving all extremities. No slurred speech. CN 2 through 12 grossly intact Psych: calm, cooperative, normal affect Course Course Course Narrative: All of patient's labs pending Medications Administered Discontinued Medications Generic Name Dose Route Start Last Admin Trade Name Freq PRN Reason Stop Dose Admin Sodium Chloride 2,050 mls @ 999 mls/hr 01/08/23 13:34 01/08/23 15:23 Ns IVCONT 01/08/23 15:37 Infused .Q2H4M ONE Infusion Ceftriaxone Sodium 1 gm/ 50 mls @ 100 mls/hr 01/08/23 13:36 01/08/23 14:32 Sodium Chloride IV 01/08/23 14:05 Infused ONCE ONE Infusion Iohexol 100 ml 01/08/23 15:49 01/08/23 15:49 Iohexol 350 Mg/Ml 100 Ml Infus..Btl IV 01/08/23 15:50 65 ml ONCE ONE Administration Medical Decision Making Medical Decision Making [facility] Narrative: -patient's blood pressure on the softer side, 92/46, tachycardic, heart rate 109, rectal temperature 101.8 degrees. Patient was discharged from the hospital approximately a month ago, patient had Klebsiella UTI treated with ceftriaxone successfully. Patient has a strong odor of UTI. We will empirically start treatment with IV ceftriaxone. Also, patient is being given fluids based on ideal weight of 68 kg, patient is obese. All of patient's labs and imaging are pending -CTA negative for pulmonary embolism -patient has urinary retention, patient drained 400 mL of urine into the Witt bag -UTI positive, last time the patient was here patient had Klebsiella UTI, treated with ceftriaxone -discussed the patient with Dr. Suero, patient being admitted -vitals improved, blood pressure 124/59, heart rate 89, temperature 98.3 degrees Admission/Observation Consideration of admission/observation: Escalation of care including admission/observation considered Consult Healthcare Provider Management of the patient was discussed with: Hospitalist Lab Data [facility] Lab Attestation statement: I reviewed the patient's lab results. 01/08/23 13:33 01/08/23 13:33 Labs: Lab Results 01/08/23 01/08/23 01/08/23 Range/Units 13:33 13:33 13:33 WBC 19.9 H (4.8-10.8) X10*3/uL RBC 5.05 D (4.60-5.80) X10*6/uL Hgb 13.1 L D (14.0-18.0) g/dl Hct 40.1 L D (42.0-52.0) % MCV 79.4 L (80.0-98.0) fL MCH 25.9 L (27.0-33.0) pg MCHC 32.7 (31.0-36.0) g/dl RDW 13.5 (11.0-16.0) % Plt Count 233 (160-400) X10*3/uL MPV 9.9 (9.4-12.4) fL Immature Gran % (Auto) 0.5 H (0.0-0.4) % Neut % (Auto) 78.4 H (45-73) % Lymph % (Auto) 7.3 L (20-40) % [place] % (Auto) 12.8 H (2-11) % Eos % (Auto) 0.7 (0-4) % Baso % (Auto) 0.3 (0-2) % Lymph # (Auto) 1.5 (1.2-4.9) X10*3/uL [place] # (Auto) 2.6 H (0.1-1.2) X10*3/uL Eos # (Auto) 0.1 (0.0-0.4) X10*3/uL Baso # (Auto) 0.1 (0.0-0.2) X10*3/uL Abs Immat Gran (auto) 0.09 H (0.00-0.03) X10*3/uL Absolute Neuts (auto) 15.6 H (2.0-8.3) x10*3/uL Absolute Nucleated RBC 0.000 (0.0-0.012) X10*3/uL Nucleated RBC % (auto) 0.0 (0.0-0.2) /100WBC Smear Tech's Comments VERIFIED PT (10.0-13.1) SEC INR (0.9-1.1) D-Dimer High Sensitivty NG/ML VBG pH (7.32-7.43) VBG pCO2 mmHg VBG pO2 mmHg VBG HCO3 (22-26) mmol/L VBG O2 Saturation % VBG Base Excess mmol/L Sodium 135 (135-145) mmol/L Potassium 4.3 (3.3-5.1) mmol/L Chloride 102 (96-108) mmol/L Carbon Dioxide 25 (22-29) mmol/L Anion Gap 12 (12-20) BUN 15 (9-16) mg/dL Creatinine 1.37 (0.5-1.4) mg/dL Estim Creat Clear Calc 54.4 Estimated GFR 51 Random Glucose 169 H (60-115) mg/dL Lactic Acid (0.5-2.0) mmol/L Calcium 9.1 D (8.4-10.2) mg/dL Magnesium 1.9 (1.6-2.6) mg/dL Total Bilirubin 1.1 H (0.0-1.0) mg/dL Direct Bilirubin 0.3 (0.0-0.5) mg/dL AST 11 (5-37) U/L ALT 12 (0-40) U/L Alkaline Phosphatase 130 H (39-117) U/L Troponin I High Sens 24.2 D (<3.5-35.0) ng/L B-Natriuretic Peptide (<100) pg/mL Total Protein 6.6 (6.5-8.0) g/dL Albumin 3.9 (3.5-5.0) g/dL Urine Color Urine Appearance Urine pH (5.0-9.0) Ur Specific [place] (1.005-1.025) Urine Protein (Neg-Trace) mg/dL Urine Glucose (UA) (Negative) mg/dL Urine Ketones (Negative) mg/dL Urine Blood (Negative) Urine Nitrite (Negative) Ur Leukocyte Esterase (Negative) Urine RBC (0-2) /HPF Urine WBC (0-5) /HPF Ur Squamous Epith Cells (0-2) /HPF Urine Bacteria (None Seen) Hyaline Casts (0-2) /LPF 01/08/23 01/08/23 01/08/23 Range/Units 13:33 13:33 13:33 WBC (4.8-10.8) X10*3/uL RBC (4.60-5.80) X10*6/uL Hgb (14.0-18.0) g/dl Hct (42.0-52.0) % MCV (80.0-98.0) fL MCH (27.0-33.0) pg MCHC (31.0-36.0) g/dl RDW (11.0-16.0) % Plt Count (160-400) X10*3/uL MPV (9.4-12.4) fL Immature Gran % (Auto) (0.0-0.4) % Neut % (Auto) (45-73) % Lymph % (Auto) (20-40) % [place] % (Auto) (2-11) % Eos % (Auto) (0-4) % Baso % (Auto) (0-2) % Lymph # (Auto) (1.2-4.9) X10*3/uL [place] # (Auto) (0.1-1.2) X10*3/uL Eos # (Auto) (0.0-0.4) X10*3/uL Baso # (Auto) (0.0-0.2) X10*3/uL Abs Immat Gran (auto) (0.00-0.03) X10*3/uL Absolute Neuts (auto) (2.0-8.3) x10*3/uL Absolute Nucleated RBC (0.0-0.012) X10*3/uL Nucleated RBC % (auto) (0.0-0.2) /100WBC Smear Tech's Comments PT 11.7 (10.0-13.1) SEC INR 1.0 (0.9-1.1) D-Dimer High Sensitivty 393 NG/ML VBG pH (7.32-7.43) VBG pCO2 mmHg VBG pO2 mmHg VBG HCO3 (22-26) mmol/L VBG O2 Saturation % VBG Base Excess mmol/L Sodium (135-145) mmol/L Potassium (3.3-5.1) mmol/L Chloride (96-108) mmol/L Carbon Dioxide (22-29) mmol/L Anion Gap (12-20) BUN (9-16) mg/dL Creatinine (0.5-1.4) mg/dL Estim Creat Clear Calc Estimated GFR Random Glucose (60-115) mg/dL Lactic Acid 1.8 (0.5-2.0) mmol/L Calcium (8.4-10.2) mg/dL Magnesium (1.6-2.6) mg/dL Total Bilirubin (0.0-1.0) mg/dL Direct Bilirubin (0.0-0.5) mg/dL AST (5-37) U/L ALT (0-40) U/L Alkaline Phosphatase (39-117) U/L Troponin I High Sens (<3.5-35.0) ng/L B-Natriuretic Peptide 146 H (<100) pg/mL Total Protein (6.5-8.0) g/dL Albumin (3.5-5.0) g/dL Urine Color Urine Appearance Urine pH (5.0-9.0) Ur Specific [place] (1.005-1.025) Urine Protein (Neg-Trace) mg/dL Urine Glucose (UA) (Negative) mg/dL Urine Ketones (Negative) mg/dL Urine Blood (Negative) Urine Nitrite (Negative) Ur Leukocyte Esterase (Negative) Urine RBC (0-2) /HPF Urine WBC (0-5) /HPF Ur Squamous Epith Cells (0-2) /HPF Urine Bacteria (None Seen) Hyaline Casts (0-2) /LPF 01/08/23 01/08/23 Range/Units 13:38 13:39 WBC (4.8-10.8) X10*3/uL RBC (4.60-5.80) X10*6/uL Hgb (14.0-18.0) g/dl Hct (42.0-52.0) % MCV (80.0-98.0) fL MCH (27.0-33.0) pg MCHC (31.0-36.0) g/dl RDW (11.0-16.0) % Plt Count (160-400) X10*3/uL MPV (9.4-12.4) fL Immature Gran % (Auto) (0.0-0.4) % Neut % (Auto) (45-73) % Lymph % (Auto) (20-40) % [place] % (Auto) (2-11) % Eos % (Auto) (0-4) % Baso % (Auto) (0-2) % Lymph # (Auto) (1.2-4.9) X10*3/uL [place] # (Auto) (0.1-1.2) X10*3/uL Eos # (Auto) (0.0-0.4) X10*3/uL Baso # (Auto) (0.0-0.2) X10*3/uL Abs Immat Gran (auto) (0.00-0.03) X10*3/uL Absolute Neuts (auto) (2.0-8.3) x10*3/uL Absolute Nucleated RBC (0.0-0.012) X10*3/uL Nucleated RBC % (auto) (0.0-0.2) /100WBC Smear Tech's Comments PT (10.0-13.1) SEC INR (0.9-1.1) D-Dimer High Sensitivty NG/ML VBG pH 7.45 H (7.32-7.43) VBG pCO2 38 mmHg VBG pO2 46 mmHg VBG HCO3 26 (22-26) mmol/L VBG O2 Saturation 76.0 % VBG Base Excess 3.0 mmol/L Sodium (135-145) mmol/L Potassium (3.3-5.1) mmol/L Chloride (96-108) mmol/L Carbon Dioxide (22-29) mmol/L Anion Gap (12-20) BUN (9-16) mg/dL Creatinine (0.5-1.4) mg/dL Estim Creat Clear Calc Estimated GFR Random Glucose (60-115) mg/dL Lactic Acid (0.5-2.0) mmol/L Calcium (8.4-10.2) mg/dL Magnesium (1.6-2.6) mg/dL Total Bilirubin (0.0-1.0) mg/dL Direct Bilirubin (0.0-0.5) mg/dL AST (5-37) U/L ALT (0-40) U/L Alkaline Phosphatase (39-117) U/L Troponin I High Sens (<3.5-35.0) ng/L B-Natriuretic Peptide (<100) pg/mL Total Protein (6.5-8.0) g/dL Albumin (3.5-5.0) g/dL Urine Color Yellow Urine Appearance Clear Urine pH 7.0 (5.0-9.0) Ur Specific [place] <= 1.005 (1.005-1.025) Urine Protein Trace (Neg-Trace) mg/dL Urine Glucose (UA) Negative (Negative) mg/dL Urine Ketones Negative (Negative) mg/dL Urine Blood Trace H (Negative) Urine Nitrite Negative (Negative) Ur Leukocyte Esterase Large (3+) H (Negative) Urine RBC 0-2 (0-2) /HPF Urine WBC >50 H (0-5) /HPF Ur Squamous Epith Cells 0-2 (0-2) /HPF Urine Bacteria 2+ (None Seen) Hyaline Casts 0-2 (0-2) /LPF Critical Care Time Critical Care Time Critical Care Time: Yes Total Critical Care Time: 60 Attestation: I have personally provided critical care time. Time includes review of lab data, radiology results, discussion with consultants, and monitoring for potential decompensation. Intervention performed as documented. Discharge Plan Discharge Clinical Impression: Urinary tract infection, Generalized weakness Patient Disposition: Admitted As Inpatient
--- NOTE | 2023-01-08 13:28 | MHC.EDTECH ---
EKG completed and signed by
[2023-01-08 13:39] LABS: Basophils Absolute Auto 0.1 X10*3/uL (0.0-0.2); Basophils Percent Auto 0.3 % (0-2); Eosinophils Absolute Auto 0.1 X10*3/uL (0.0-0.4); Eosinophils Percent Auto 0.7 % (0-4); Hematocrit 40.1 % (42.0-52.0); Hemoglobin 13.1 g/dl (14.0-18.0); Imm Gran Abs Auto 0.09 X10*3/uL (0.00-0.03); Imm Gran Pct Auto 0.5 % (0.0-0.4); Lymphocytes Absolute Auto 1.5 X10*3/uL (1.2-4.9); Lymphocytes Percent Auto 7.3 % (20-40); MANUAL DIFF FLAG SCAN; Mean Corpuscular HGB Conc 32.7 g/dl (31.0-36.0); Mean Corpuscular Hemoglobin 25.9 pg (27.0-33.0); Mean Corpuscular Volume 79.4 fL (80.0-98.0); Mean Platelet Volume 9.9 fL (9.4-12.4); Monocytes Absolute Auto 2.6 X10*3/uL (0.1-1.2); Monocytes Percent Auto 12.8 % (2-11); Neutrophils Absolute Auto 15.6 x10*3/uL (2.0-8.3); Neutrophils Percent Auto 78.4 % (45-73); Platelet Count 233 X10*3/uL (160-400); Red Blood Count 5.05 X10*6/uL (4.60-5.80); Red Cell Distribution Width 13.5 % (11.0-16.0); SCAN SMEAR FLAG 1; White Blood Count 19.9 X10*3/uL (4.8-10.8)
--- NOTE | 2023-01-08 13:42 | MHC.EDTECH ---
Labs and cultures collected and sent to lab
[2023-01-08 13:46] LABS: VBG HCO3 26 mmol/L (22-26); VBG pCO2 38 mmHg; VBG pH 7.45 (7.32-7.43); VBG pO2 46 mmHg
[2023-01-08 13:47] LABS: Prothrombin Time 11.7 SEC (10.0-13.1)
[2023-01-08 13:47] LABS: Venous Blood Gas Refer to POC result
[2023-01-08] MEDS: cefTRIAXone sodium 1 GM in 0.9 % Sodium Chloride 50 ML IV (13:48)
[2023-01-08 13:49] LABS: D Dimer High Sensitivity 393 NG/ML
[2023-01-08 13:49] LABS: Appearance Urine Clear; Color Urine Yellow; Glucose Urine UA Negative (Negative); Leukocyte Esterase Urine Large (3+) (Negative); Nitrite Urine Negative (Negative); Specific Gravity - Urine <= 1.005 (1.005-1.025); UMIC TRIGGER UACC YES; Urine Blood Trace (Negative); Urine Ketones Negative (Negative); Urine Protein Trace mg/dL (Neg-Trace)
[2023-01-08 13:50] LABS: Lactic Acid 1.8 mmol/L (0.5-2.0)
--- NOTE | 2023-01-08 13:51 | PC.NURSE ---
alert and oriented, resp even and unlabored. pt changed into hospital attire, rectal temperature taken at 101.8. pt has oseguera in place from snf. placed on 2l nasal cannula - 88/89% on room air. iv fluids/abx infusing. call shah within reach
[2023-01-08 13:54] LABS: Bacteria Urine 2+ (None Seen); Hyaline Casts Urine 0-2 /LPF (0-2); RBC Urine 0-2 /HPF (0-2); Squamous Epithelial Cell Urine 0-2 /HPF (0-2); UACC Culture Trigger YES; WBC Urine >50 /HPF (0-5)
[2023-01-08 13:56] LABS: Alanine Aminotransferase 12 U/L (0-40); Albumin Level 3.9 g/dL (3.5-5.0); Alkaline Phosphatase 130 U/L (39-117); Anion Gap 12 (12-20); Aspartate Amino Transferase 11 U/L (5-37); Bilirubin Direct 0.3 mg/dL (0.0-0.5); Bilirubin Total 1.1 mg/dL (0.0-1.0); Blood Urea Nitrogen 15 mg/dL (9-16); Calcium 9.1 mg/dL (8.4-10.2); Carbon Dioxide 25 mmol/L (22-29); Chloride 102 mmol/L (96-108); Creatinine Clr Calc Pharmacy 54.4; Estimated Glomerular Filt Rate 51; Glucose Random 169 mg/dL (60-115); Magnesium 1.9 mg/dL (1.6-2.6); Potassium 4.3 mmol/L (3.3-5.1); Sodium 135 mmol/L (135-145); Total Protein 6.6 g/dL (6.5-8.0)
[2023-01-08 13:59] LABS: B Type Natriuretic Peptide 146 pg/mL (<100)
[2023-01-08 14:00] LABS: SLIDE REVIEW VERIFIED
[2023-01-08 14:02] LABS: Troponin-I High Sensitivity 24.2 ng/L (<3.5-35.0)
--- NOTE | 2023-01-08 15:35 | PHA.MEDREC ---
Pharmacy Consult ? Medication Reconciliation Pharmacy has completed the medication reconciliation.
--- NOTE | 2023-01-08 15:37 | PC.NURSE ---
pt taken to ct scan at this time, continues to offer no complaints resting quietly on stretcher
[2023-01-08] MEDS: iohexoL 350 MG/ML 100 ML INFUS..BTL IV (15:49)
--- NOTE | 2023-01-08 16:07 | PC.NURSE ---
approx 1400 ml urine output into oseguera bag
--- NOTE | 2023-01-08 17:23 | PM.IMHP ---
History of Present Illness Date of Service: 01/08/23 Attending physician on admission: [facility] Chief Complaint: syncope 72-year-old male with past medical history of chronic heart failure with Preserved ejection fraction,? COPD O2 dependent, type 2 diabetes, urinary retention, depression, history of AFib, HTN, hypothyroidism, CAD, history of dysphagia, presents to the hospital?following a syncopal episode at [facility]F where he [facility]. The patient denies having syncopized or falling, but it was witnessed by staff. Per EMS report, staff noted SBP of 80 after the episode. He states when he woke up he was very fatigued and weak. When he got up to use the restroom he was lightheaded. Denies fevers, chills, abd pain, n/v/d, urinary symptoms, palpitations, sob, or chest pain. Does have chronic oseguera due to urinary retention and has hx recurrent UTI. Recently admitted for Klebsiella bacteremia. On arrival, patient with brief episode of hypoxia to 88-89% placed on 2L supplemental O2 but has been weaned and maintaining oximetry 94%. On arrival, blood pressures soft ranging 92-49 improved to 128/65 with IVF. He was tachycardic to 112 and febrile to 101.8. He has a leukocytosis of 19.9. VBG pH 7.45, pCO2 38, PO2 46, bicarb 26. Renal function normal, electrolyte levels normal. Troponin 24.2, BNP 146. Urinalysis with 3+ leukocytes, negative nitrates, trace blood, positive urinary sediment, 2+ bacteria. D-dimer elevated at 393. CXR unremarkable. Chest CTA negative for central or subsegmental pulmonary emboli though evaluation of subsegmental PE is limited due to respiratory motion artifact. There is also cardiomegaly with three-vessel coronary artery disease and calcified thyroid nodules. There is also mild bronchial wall thickening suggestive of small airways disease. No dense airway consolidation. In the ED, given 2 L IV NS, 1 g ceftriaxone. Orthostatics found to be positive with HR 81 -->103 and BP128/65 --> 77/47 from laying to sitting. Review of Systems Review of Systems: General: No fevers, malaise, unintentional weight loss. +fatigue, +generalized weakness HEENT: No blurred vision, diplopia. No sore throat, nasal congestion, rhinorrhea, sinus pain, ear pain Cardiovascular: No chest pain, palpitations, or leg edema Respiratory: No shortness of breath, wheezing, cough GI: No abdominal pain, nausea, vomiting, diarrhea, constipation, melena, hematochezia : No dysuria, hematuria, increased urinary frequency, decreased urinary output MSK: No myalgia, back pain Neuro: No headaches, weakness, paresthesias. +lightheaded Skin: No rashes or lesions [facility] Medical History Abdomen enlarged Acute on chronic heart failure with preserved ejection fraction (HFpEF) Acute on chronic respiratory failure with hypoxia and hypercapnia Acute renal failure Acute respiratory failure with hypoxia Acute upper gastrointestinal bleeding Afib STIVEN (acute kidney injury) Altered mental status Aspiration pneumonitis Atypical pneumonia Borderline diabetic CHF exacerbation Congestive heart failure Hypertension Hyperthyroidism Hypoxia Ileus Multifocal pneumonia Myocardial infarct Partial obstruction of small intestine Pneumonia Pulmonary aspiration Sepsis associated hypotension Toxic metabolic encephalopathy Urethral stricture in male Urinary catheter in place Urinary tract infection Family History Mother No problems noted. Father Heart disease Surgical History History of shoulder surgery History of surgery of head Social History Household Members: None Housing: Retirement Do you presently have visiting nurse or other home services: No (private [employer]) Alcohol intake: former Year quit: 1989 Patient Tobacco Use Status: Never used Tobacco Smoked in Last 30 Days: No Substance Use Type: Unknown Advance Directives: Yes Advance Directives on File: Yes Advance Directives Date on File: 11/01/20 service: No Current occupational status: retired Meds Allergies Allergy/AdvReac Type Severity Reaction Status Date / Time No Known Allergies Allergy Verified 12/21/22 11:02 [No Known Allergies*] Active Medications: Current Medications Pharmacy Consult (Consult Rx Perform Med Rec) 1 each MISCELLANE ONCE PRN PRN Reason: Consult order Home Medications Medication Instructions Recorded Confirmed Last Taken Type cholecalciferol (vitamin D3) 50 50 mcg PO DAILY 02/17/22 01/08/23 Unknown History mcg (2,000 unit) tablet gabapentin 100 mg capsule 200 mg PO BID 02/17/22 01/08/23 Unknown History paroxetine HCl 10 mg tablet 10 mg PO DAILY 02/17/22 01/08/23 Unknown History potassium chloride 10 mEq 10 meq PO DAILY 02/17/22 01/08/23 Unknown History tablet,extended release(part/cryst) sennosides 8.6 mg-docusate sodium 2 tab PO BEDTIME 02/17/22 01/08/23 Unknown History 50 mg tablet (Senna Plus) Probiotic 1 cap PO BID 11/13/22 01/08/23 Unknown History diazepam 5 mg tablet 5 mg PO TID 11/13/22 01/08/23 Unknown History naproxen 500 mg tablet (Naprosyn) 500 mg PO Q12H PRN Pain 11/13/22 01/08/23 Unknown History omeprazole 20 mg capsule,delayed 20 mg PO DAILY 11/13/22 01/08/23 Unknown History release amitriptyline 25 mg tablet 25 mg PO DAILY 12/06/22 01/08/23 Unknown History atorvastatin 40 mg tablet 40 mg PO DAILY 12/06/22 01/08/23 Unknown History finasteride 5 mg tablet 5 mg PO DAILY 12/06/22 01/08/23 Unknown History losartan 100 mg tablet 100 mg PO DAILY 12/06/22 01/08/23 Unknown History tamsulosin 0.4 mg capsule 0.4 mg PO BEDTIME 12/06/22 01/08/23 Unknown History acetaminophen 325 mg tablet 650 mg PO Q4H PRN Pain 01/08/23 01/08/23 Unknown History carboxymethylcellulose sodium 1 % 1 drp ophthalmic (eye) DAILY PRN 01/08/23 01/08/23 Unknown History eye drops (Artificial Tears Dry Eyes (carboxymethylcellulose)) famotidine 20 mg tablet 20 mg PO DAILY 01/08/23 01/08/23 Unknown History Physical Exam Vital Signs and Narrative: Vital Signs: Last Vital Signs Temp 98.3 F 01/08/23 14:31 Pulse 89 01/08/23 15:23 Resp 18 01/08/23 15:23 BP 124/59 L 01/08/23 15:23 Pulse Ox 93 01/08/23 15:23 O2 Del Method Nasal Cannula 01/08/23 15:23 O2 Flow Rate 2 01/08/23 15:23 BMI result Body Mass Index 30.7 Constitutional - Awake and Alert, No apparent distress Eyes - PERRLA, EOMI Cardiovascular - S1S2, RRR, No edema Respiratory - Normal lung expansion, Normal respiratory effort, No respiratory distress, CTA bilaterally Gastrointestinal - NT / ND; +BS; No rebound or guarding : Oseguera cather in place draining cloudy yellow urine Extremities - no calf tenderness bilaterally, no swelling Skin - Warm/Dry Neurological - Alert & oriented x4, CN II-XII in tact, 5/5 strength BUE and BLE Psychological - Appropriate affect Results Labs 01/08/23 13:33 01/08/23 13:33 Labs: Laboratory Results - last 24 hr 01/08/23 01/08/23 01/08/23 13:33 13:33 13:33 MCV 79.4 L MCH 25.9 L MCHC 32.7 RDW 13.5 Plt Count 233 MPV 9.9 Immature Gran % (Auto) 0.5 H Neut % (Auto) 78.4 H Lymph % (Auto) 7.3 L [place] % (Auto) 12.8 H Eos % (Auto) 0.7 Baso % (Auto) 0.3 Lymph # (Auto) 1.5 [place] # (Auto) 2.6 H Eos # (Auto) 0.1 Baso # (Auto) 0.1 Abs Immat Gran (auto) 0.09 H Absolute Neuts (auto) 15.6 H Absolute Nucleated RBC 0.000 Nucleated RBC % (auto) 0.0 Smear Tech's Comments VERIFIED PT INR D-Dimer High Sensitivty VBG pH VBG pCO2 VBG pO2 VBG HCO3 VBG O2 Saturation VBG Base Excess Anion Gap 12 Estim Creat Clear Calc 54.4 Estimated GFR 51 Random Glucose 169 H Lactic Acid Calcium 9.1 D Magnesium 1.9 Total Bilirubin 1.1 H Direct Bilirubin 0.3 AST 11 ALT 12 Alkaline Phosphatase 130 H Troponin I High Sens 24.2 D B-Natriuretic Peptide Total Protein 6.6 Albumin 3.9 Urine Color Urine Appearance Urine pH Ur Specific [place] Urine Protein Urine Glucose (UA) Urine Ketones Urine Blood Urine Nitrite Ur Leukocyte Esterase Urine RBC Urine WBC Ur Squamous Epith Cells Urine Bacteria Hyaline Casts 01/08/23 01/08/23 01/08/23 13:33 13:33 13:33 MCV MCH MCHC RDW Plt Count MPV Immature Gran % (Auto) Neut % (Auto) Lymph % (Auto) [place] % (Auto) Eos % (Auto) Baso % (Auto) Lymph # (Auto) [place] # (Auto) Eos # (Auto) Baso # (Auto) Abs Immat Gran (auto) Absolute Neuts (auto) Absolute Nucleated RBC Nucleated RBC % (auto) Smear Tech's Comments PT 11.7 INR 1.0 D-Dimer High Sensitivty 393 VBG pH VBG pCO2 VBG pO2 VBG HCO3 VBG O2 Saturation VBG Base Excess Anion Gap Estim Creat Clear Calc Estimated GFR Random Glucose Lactic Acid 1.8 Calcium Magnesium Total Bilirubin Direct Bilirubin AST ALT Alkaline Phosphatase Troponin I High Sens B-Natriuretic Peptide 146 H Total Protein Albumin Urine Color Urine Appearance Urine pH Ur Specific [place] Urine Protein Urine Glucose (UA) Urine Ketones Urine Blood Urine Nitrite Ur Leukocyte Esterase Urine RBC Urine WBC Ur Squamous Epith Cells Urine Bacteria Hyaline Casts 01/08/23 01/08/23 13:38 13:39 MCV MCH MCHC RDW Plt Count MPV Immature Gran % (Auto) Neut % (Auto) Lymph % (Auto) [place] % (Auto) Eos % (Auto) Baso % (Auto) Lymph # (Auto) [place] # (Auto) Eos # (Auto) Baso # (Auto) Abs Immat Gran (auto) Absolute Neuts (auto) Absolute Nucleated RBC Nucleated RBC % (auto) Smear Tech's Comments PT INR D-Dimer High Sensitivty VBG pH 7.45 H VBG pCO2 38 VBG pO2 46 VBG HCO3 26 VBG O2 Saturation 76.0 VBG Base Excess 3.0 Anion Gap Estim Creat Clear Calc Estimated GFR Random Glucose Lactic Acid Calcium Magnesium Total Bilirubin Direct Bilirubin AST ALT Alkaline Phosphatase Troponin I High Sens B-Natriuretic Peptide Total Protein Albumin Urine Color Yellow Urine Appearance Clear Urine pH 7.0 Ur Specific [place] <= 1.005 Urine Protein Trace Urine Glucose (UA) Negative Urine Ketones Negative Urine Blood Trace H Urine Nitrite Negative Ur Leukocyte Esterase Large (3+) H Urine RBC 0-2 Urine WBC >50 H Ur Squamous Epith Cells 0-2 Urine Bacteria 2+ Hyaline Casts 0-2 Imaging Radiologist's Impressions: Impressions Chest X-Ray 01/08/23 13:46 IMPRESSION: Unremarkable examination. Chest CTA 01/08/23 15:49 IMPRESSION: 1. No central or subsegmental pulmonary emboli. Evaluation for subsegmental pulmonary emboli is limited secondary to extensive respiratory motion artifact. 2. Enlarged heart. Three-vessel coronary artery disease. 3. Calcified thyroid nodules, not well evaluated on CT. 4. Mild bronchial wall thickening suggesting small airways disease. No dense consolidation. VTE: negative Assessment and Plan (1) Urinary tract infection: Status: Acute (2) Sepsis: Status: Acute (3) Orthostatic syncope: Status: Acute Plan 72-year-old male with past medical history of chronic heart failure with Preserved ejection fraction,? COPD O2 dependent, type 2 diabetes, urinary retention, depression, history of AFib, HTN, hypothyroidism, CAD, history of dysphagia admitted for UTI with sepsis and orthostatic syncope. #Orthostatic syncope -Given 2L IV NS in ED. Hold on further IVF given hx of CHF -Decreased diazepam to 3mg TID, decrease amitriptyline to 12.5mg, hold gabapentin, hold antihypertensives for now -MOnitor on telemetry -Repeat orthostatics as needed #Oseguera catheter associated UTI with sepsis -UA with 3+ leuks, negative nitrites, trace blood, 2+ bacteria -Recent admission with Klebsiella bacteremia -IV ceftriaxone (initiated 01/08) -WBC 19.9, tachycardic, febrile to 101.8. Lactic acid normal, no end organ damaage -Follow CBC, BC, UC #Acute toxic metabolic encephalopathy as above- related to UTI and polypharmacy -Hold/change sedating medications as above -Treat UTi as above #Mood disorder -continue paroxetine. Adjust valium, amitriptyline, gabapentin as above -Psych consult for med review #HTN- blood pressures soft -hold antihypertensives in setting of sepsis, resume as appropriate #BPH with urinary retension -continue oseguera -Hold flomax and proscar due to orthostatic hypotension, resume as approrpriate #HFpEF- no acute exacerbation -hold lasix in setting of sepsis #COPD with chronic hypoxemic respiratory failure- no acute exacerbation -Supplemental O2 prn to maintain oximetry 90-92% -albuterol prn #History atrial fibrillation -not on anticoagulation due to significant hematuria history -not on rate control- EKG shows sinus tachycardia # CAD/history NSTEMI/HLD -continue ASA, statin DVT prophylaxis- lovenox Full code Pt requires inpt stay at least 2 midnights for management of oseguera associated UTi with sepsis requiring IV antibiotics and significant orthostatic hypotension requiring medication management to prevent recurrent syncope. Time Spent With Patient Time: Total time managing care of this patient today ____ minutes. Quality Stroke Does the patient have a stroke diagnosis?: No VTE Prior VTE?: No VTE Risk Level:: Medical - moderate - high VTE Device Contraindication: Treatment Not Indicated VTE Drug Contraindication: N/A - Med Ordered
[2023-01-08] MEDS: Enoxaparin Sodium 40 MG/0.4 ML SYRINGE SUBCUT (22:07)
[2023-01-08] MEDS: diazePAM 2 MG TABLET 3 MG PO (22:07)
[2023-01-08] MEDS: Sennosides/Docusate Sodium TABLET 2 TAB PO (22:07)
[2023-01-08] MEDS: 0.9 % Sodium Chloride Flush 3 ML SYRINGE IVFLUSH (22:09)
[2023-01-08] MEDS: Gabapentin 100 MG CAPSULE 200 MG PO (23:40)
[2023-01-09 02:57] VITALS: BP 124/61; PULSE 76; RESP 18; TEMP 36.2; O2SAT 94
[2023-01-09] MEDS: Omeprazole 20 MG CAPSULE.DR PO (05:53)
[2023-01-09 06:26] LABS: Basophils Absolute Auto 0.1 X10*3/uL (0.0-0.2); Basophils Percent Auto 0.4 % (0-2); Eosinophils Absolute Auto 0.2 X10*3/uL (0.0-0.4); Eosinophils Percent Auto 1.8 % (0-4); Hematocrit 36.6 % (42.0-52.0); Hemoglobin 11.6 g/dl (14.0-18.0); Imm Gran Abs Auto 0.03 X10*3/uL (0.00-0.03); Imm Gran Pct Auto 0.2 % (0.0-0.4); Lymphocytes Percent Auto 15.2 % (20-40); MANUAL DIFF FLAG SCAN; Mean Corpuscular HGB Conc 31.7 g/dl (31.0-36.0); Mean Corpuscular Hemoglobin 25.8 pg (27.0-33.0); Mean Corpuscular Volume 81.3 fL (80.0-98.0); Mean Platelet Volume 10.3 fL (9.4-12.4); Monocytes Absolute Auto 1.6 X10*3/uL (0.1-1.2); Monocytes Percent Auto 12.2 % (2-11); Neutrophils Absolute Auto 9.4 x10*3/uL (2.0-8.3); Neutrophils Percent Auto 70.2 % (45-73); Platelet Count 214 X10*3/uL (160-400); Red Cell Distribution Width 13.9 % (11.0-16.0); SCAN SMEAR FLAG 1; White Blood Count 13.4 X10*3/uL (4.8-10.8)
[2023-01-09 06:35] LABS: Anion Gap 12 (12-20); Blood Urea Nitrogen 14 mg/dL (9-16); Calcium 8.7 mg/dL (8.4-10.2); Carbon Dioxide 25 mmol/L (22-29); Chloride 107 mmol/L (96-108); Creatinine Clr Calc Pharmacy 64.3; Estimated Glomerular Filt Rate > 60; Glucose Random 118 mg/dL (60-115); Potassium 4.3 mmol/L (3.3-5.1); Sodium 140 mmol/L (135-145)
[2023-01-09 06:58] VITALS: BP 151/75; PULSE 85; RESP 18; TEMP 36; O2SAT 95
[2023-01-09 07:05] LABS: SLIDE REVIEW VERIFIED
[2023-01-09] MEDS: Amitriptyline HCl 25 MG TABLET 12.5 MG PO (08:07)
[2023-01-09] MEDS: Cholecalciferol (Vitamin D3) 25 MCG TABLET 50 MCG PO (08:07)
[2023-01-09] MEDS: polyethylene glycoL 3350 17 GM POWD.PACK PO ×2 (08:07→22:07)
[2023-01-09] MEDS: diazePAM 2 MG TABLET 3 MG PO ×3 (08:07→22:06)
[2023-01-09] MEDS: Famotidine 20 MG TABLET PO (08:08)
[2023-01-09] MEDS: Potassium Chloride ER 10 MEQ TABLET.ER PO (08:08)
[2023-01-09] MEDS: Atorvastatin Calcium 40 MG TABLET PO (08:08)
[2023-01-09] MEDS: PARoxetine HCL 10 MG TABLET PO (08:08)
[2023-01-09] MEDS: Aspirin Enteric Coated 81 MG TABLET.DR PO (08:08)
[2023-01-09] MEDS: 0.9 % Sodium Chloride Flush 3 ML SYRINGE IVFLUSH ×3 (08:09→22:25)
--- NOTE | 2023-01-09 12:29 | MHC.CM.PN ---
CM MET WITH PT WHO REPORTS HE IS NOW LTC AT [facility] HE REPORTS HE NO LONGER HAS HIS CONDO HE SAYS THE [facility] ALSO OBTAINED A GUARDIAN AND CONSERVATOR FOR HIM ALTHOUGH HE DID NOT WANT THIS HE REPORTS HE HAS NOT SEEN EITHER OF THESE PEOPLE SINCE APPOINTMENT HE REPORTS HE IS WORRIED HE WILL STAY AT [facility] UNTIL HE DIES HE DOES SAY ONE OF HIS FRIENDS IS LOOKING INTO THE [facility] [place] AND HE IS HOPEFUL THIS WILL WORK OUT CM CALLED [facility]TS EMILY AYALA [phone] HER FISCAL ECONOMIST ANSWERED AND CONFIRMED THEY ARE AWARE [facility] IS INPT SHE PROVIDED A FAX NUMBER OF [phone] FOR PTS IMM DCP: RETURN TO [facility] VIA BLS
[2023-01-09] MEDS: cefTRIAXone sodium 1 GM in 0.9 % Sodium Chloride 50 ML IV (13:46)
[2023-01-09] MEDS: Docusate Sodium 100 MG CAPSULE PO (13:55)
--- NOTE | 2023-01-09 14:26 | HO.PM.IMPN ---
Subjective Subjective Date of Service: 01/09/23 Interval History: Orthostatic hypotension, UTI Review of Systems No new episode, mental status slowly improving Feels somewhat constipated Denies any fever or chills. Physical Exam Vital Signs: Vital Signs: Last Vital Signs Temp 96.8 F 01/09/23 06:58 Pulse 85 01/09/23 06:58 Resp 18 01/09/23 06:58 BP 151/75 H 01/09/23 06:58 Pulse Ox 95 01/09/23 06:58 O2 Del Method Room Air 01/09/23 06:58 O2 Flow Rate 2 01/08/23 15:23 BMI result Body Mass Index 30.7 Appearance: Alert.? Oriented X2-3 ,needs lot of direction to answer questions. cvs: rrr, [id number] , no murmur res: air entry fair ,no rales or wheezing abd: no rebound or guarding ,nt, bs present. ext pulses present , no cyanosis . neuro: axo3 , nonfocal. Objective Data Active Medications Acetaminophen (Acetaminophen 325 Mg Tablet) 650 mg PO Q6H PRN PRN Reason: Pain, Mild (Pain Scale 1-3) Amitriptyline HCl (Amitriptyline Hcl 25 Mg Tablet) 12.5 mg PO DAILY [facility] Last Admin: 01/09/23 08:07 Dose: 12.5 mg Documented By: GRACIELA Artificial Tears (Artificial Tears 15 Ml Drops) 1 drop EYE-BOTH DAILY PRN PRN Reason: Dry Eyes Aspirin (Aspirin Enteric Coated 81 Mg Tablet.) 81 mg PO DAILY [facility] Last Admin: 01/09/23 08:08 Dose: 81 mg Documented By: GRACIELA Atorvastatin Calcium (Atorvastatin Calcium 40 Mg Tablet) 40 mg PO DAILY [facility] Last Admin: 01/09/23 08:08 Dose: 40 mg Documented By: GRACIELA Diazepam (Diazepam 2 Mg Tablet) 3 mg PO TID [facility] Last Admin: 01/09/23 08:07 Dose: 3 mg Documented By: GRACIELA Docusate Sodium (Docusate Sodium 100 Mg Capsule) 100 mg PO DAILY PRN PRN Reason: Constipation Last Admin: 01/09/23 13:55 Dose: 100 mg Documented By: GRACIELA Enoxaparin Sodium (Enoxaparin Sodium 40 Mg/0.4 Ml Syringe) 40 mg SUBCUT Q24H [facility] Last Admin: 01/08/23 22:07 Dose: 40 mg Documented By: TUYET Famotidine (Famotidine 20 Mg Tablet) 20 mg PO DAILY [facility] Last Admin: 01/09/23 08:08 Dose: 20 mg Documented By: GRACIELA Ceftriaxone Sodium 1 gm/ (Sodium Chloride) 50 mls @ 100 mls/hr IV Q24H [facility] Last Admin: 01/09/23 13:46 Dose: 100 mls/hr Documented By: GRACIELA Omeprazole (Omeprazole 20 Mg Capsule.Dr) 20 mg PO DAILY@0630 [facility] Last Admin: 01/09/23 05:53 Dose: 20 mg Documented By: TUYET Ondansetron HCl (Ondansetron Hcl 4 Mg/2 Ml Vial) 4 mg IVPUSH Q8H PRN PRN Reason: Nausea and Vomiting Paroxetine HCl (Paroxetine Hcl 10 Mg Tablet) 10 mg PO DAILY [facility] Last Admin: 01/09/23 08:08 Dose: 10 mg Documented By: GRACIELA Pharmacy Consult (Consult Rx Perform Med Rec) 1 each MISCELLANE ONCE PRN PRN Reason: Consult order Polyethylene Glycol (Polyethylene Glycol 3350 17 Gm Powd.Pack) 17 gm PO BID [facility] Potassium Chloride (Potassium Chloride Er 10 Meq Tablet.Er) 10 meq PO DAILY [facility] Last Admin: 01/09/23 08:08 Dose: 10 meq Documented By: GRACIELA Senna/Docusate Sodium (Sennosides/Docusate Sodium Tablet) 2 tab PO BEDTIME [facility] Last Admin: 01/08/23 22:07 Dose: 2 tab Documented By: TUYET Sodium Chloride (0.9 % Sodium Chloride Flush 3 Ml Syringe) 3 ml IVFLUSH QSHIFT [facility] Last Admin: 01/09/23 08:09 Dose: 3 ml Documented By: GRACIELA Vitamin D (Cholecalciferol (Vitamin D3) 25 Mcg Tablet) 50 mcg PO DAILY [facility] Last Admin: 01/09/23 08:07 Dose: 50 mcg Documented By: GRACIELA Labs 01/09/23 05:38 01/09/23 05:38 Labs: Laboratory Results - last 24 hr 01/09/23 01/09/23 05:38 05:38 MCV 81.3 MCH 25.8 L MCHC 31.7 RDW 13.9 Plt Count 214 MPV 10.3 Immature Gran % (Auto) 0.2 Neut % (Auto) 70.2 Lymph % (Auto) 15.2 L [place] % (Auto) 12.2 H Eos % (Auto) 1.8 Baso % (Auto) 0.4 Lymph # (Auto) 2.0 [place] # (Auto) 1.6 H Eos # (Auto) 0.2 Baso # (Auto) 0.1 Abs Immat Gran (auto) 0.03 Absolute Neuts (auto) 9.4 H Absolute Nucleated RBC 0.000 Nucleated RBC % (auto) 0.0 Smear Tech's Comments VERIFIED Anion Gap 12 Estim Creat Clear Calc 64.3 Estimated GFR > 60 Random Glucose 118 H Calcium 8.7 Microbiology Microbiology Results: Microbiology 01/08/23 13:33 Blood Culture - Preliminary Blood - Venous Prelim: GNR Gram Stain only Prelim: GPC Gram Stain only 01/08/23 13:39 Blood Culture - Preliminary Blood - Venous Prelim: GNR Gram Stain only 01/08/23 Unknown Urine Culture - Preliminary Urine Catheterized - Oseguera Catheter Culture in progress. Assessment and Plan (1) Urinary tract infection: Status: Acute (2) Orthostatic syncope: Status: Acute Plan 72-year-old male with past medical history of chronic heart failure with Preserved ejection fraction,? COPD O2 dependent, type 2 diabetes, urinary retention, depression, history of AFib, HTN, hypothyroidism, CAD, history of dysphagia admitted for UTI with sepsis and orthostatic syncope. Orthostatic syncope -Given 2L IV NS in ED. Hold on further IVF given hx of CHF -Decreased diazepam to 3mg TID, decrease amitriptyline to 12.5mg, hold gabapentin, hold antihypertensives for now,moniter nitor on telemetry -Repeat orthostatics prn Oseguera catheter associated UTI with sepsis -UA with 3+ leuks, negative nitrites, trace blood, 2+ bacteria -Recent admission with Klebsiella bacteremia urine cultures pendin , blood culture -grew 2/2 gram neg rods, 1/2 gram gram positive cocci. -IV ceftriaxone (initiated 01/08) -WBC 19.9-13.4, tachycardic, no new fevers, Lactic acid normal, no end organ damaage Acute toxic metabolic encephalopathy as above- related to UTI and polypharmacy -Hold/change sedating medications as above mental status slowly improving -Treat UTi as above Mood disorder -continue paroxetine. Adjust valium, amitriptyline, gabapentin as above -Psych consult for med review HTN- blood pressures soft -hold antihypertensives in setting of sepsis, resume as appropriate BPH with urinary retension -continue oseguera -Hold flomax and proscar due to orthostatic hypotension, resume as approrpriate HFpEF- no acute exacerbation -hold lasix in setting of sepsis COPD with chronic hypoxemic respiratory failure- no acute exacerbation -Supplemental O2 prn to maintain oximetry 90-92% -albuterol prn History atrial fibrillation-not on anticoagulation -due to significant hematuria history(last admission) not ac or on rate control- EKG shows sinus tachycardia CAD/history NSTEMI/HLD-continue ASA, statin DVT prophylaxis- lovenox Full code Pt requires inpt stay at least 2 midnights for management of oseguera associated UTi with sepsis requiring IV antibiotics and significant orthostatic hypotension requiring medication management to prevent recurrent syncope. Time Spent With Patient Time: Total time managing care of this patient today ____ minutes. Quality Stroke Does the patient have a stroke diagnosis?: No VTE Prior VTE?: No VTE Risk Level:: Medical - moderate - high VTE Device Contraindication: Treatment Not Indicated VTE Drug Contraindication: N/A - Med Ordered
[2023-01-09] MEDS: vancomycin/NS 2,000 MG/500 ML PLAST..BAG 250 MG IV (15:04)
--- NOTE | 2023-01-09 15:50 | P.CNPS_ITS ---
History of Present Illness Date of Service: 01/09/2023 Chief Complaint: syncope, uti Reason for Consult: Psychotropic medication review for orthostasis Requesting physician: Marlee Dodd Discussed with referring provider: Yes Sources of Information: patient interviewed and chart reviewed HPI Narrative: 72 yo male, history of depression, resident of LT for ~24 months s/p CVS presents with orthostatic syncopal episode with SBP 80. Pt has a documented and reported history of heart failure with preserved ED, COPD with O2 dependence, DMII, Urinary Retention due to BPH and UTI with oseguera, AFib, HTN, Hypothyroidism,NSTEMI. 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 Review of current Paxil, Valium, Amitriptyline, Gabapentin prescriptions and dosing. Pt reports in general he feels over medicated. He believes his meds have increased since he entered LTC. He describes taking m edicine in the a.m. and needing to return to sleep for much of the a.m. Reviewed dosing adjustments since [place] [facility] which he approves of then addressed each med individually, citing purpose, efficacy, half life and side effects. Pt reports Gabapentin is for pain in his feet, which is high today. He would like that medication to restart. Paxil has never been an issue and he would like this dose to remain. Valium he identifies as an issue with awareness of potential for accumulation. He does report 5mg at hs helps with sleep and discussed a few alternative doses and times. Amitriptyline he is using for pain and sleep and is pleased with the dosage decrease as he had been on 50 mg at the facility. Overall he is open to changes to prevent syncopal episodes. Medical Evaluation Reviewed: Yes [facility] Medical History (Updated 01/09/23 @ 16:51 by Susan Paiz, DANIELLE) Abdomen enlarged Acute on chronic heart failure with preserved ejection fraction (HFpEF) Acute on chronic respiratory failure with hypoxia and hypercapnia Acute renal failure Acute respiratory failure with hypoxia Acute upper gastrointestinal bleeding Afib STIVEN (acute kidney injury) Altered mental status Aspiration pneumonitis Atypical pneumonia Borderline diabetic CHF exacerbation Congestive heart failure Hypertension Hyperthyroidism Hypoxia Ileus Multifocal pneumonia Myocardial infarct Partial obstruction of small intestine Pneumonia Pulmonary aspiration Recurrent major depression Sepsis associated hypotension Toxic metabolic encephalopathy Urethral stricture in male Urinary catheter in place Urinary tract infection Surgical History History of shoulder surgery History of surgery of head Diagnostics Vital Signs (24Hr): Vital Signs - 24 hr 01/08/23 17:55 01/08/23 17:49 01/08/23 17:50 Temperature 98.3 F Pulse Rate 81 81 103 H Respiratory Rate 19 Blood Pressure 128/65 128/65 77/47 L Pulse Oximetry 94 Oxygen Delivery Method Room Air 01/08/23 22:22 01/09/23 02:57 01/09/23 06:58 Temperature 97.7 F 97.2 F 96.8 F Pulse Rate 81 76 85 Respiratory Rate 16 18 18 Blood Pressure 130/66 124/61 151/75 H Pulse Oximetry 92 94 95 Oxygen Delivery Method Room Air Room Air Room Air BMI result Body Mass Index 30.7 Labs 01/09/23 05:38 01/09/23 05:38 Labs: Laboratory Results - last 48 hr 01/08/23 01/08/23 01/08/23 13:33 13:33 13:33 WBC 19.9 H RBC 5.05 D Hgb 13.1 L D Hct 40.1 L D MCV 79.4 L MCH 25.9 L MCHC 32.7 RDW 13.5 Plt Count 233 MPV 9.9 Immature Gran % (Auto) 0.5 H Neut % (Auto) 78.4 H Lymph % (Auto) 7.3 L [place] % (Auto) 12.8 H Eos % (Auto) 0.7 Baso % (Auto) 0.3 Lymph # (Auto) 1.5 [place] # (Auto) 2.6 H Eos # (Auto) 0.1 Baso # (Auto) 0.1 Abs Immat Gran (auto) 0.09 H Absolute Neuts (auto) 15.6 H Absolute Nucleated RBC 0.000 Nucleated RBC % (auto) 0.0 Smear Tech's Comments VERIFIED PT INR D-Dimer High Sensitivty VBG pH VBG pCO2 VBG pO2 VBG HCO3 VBG O2 Saturation VBG Base Excess Sodium 135 Potassium 4.3 Chloride 102 Carbon Dioxide 25 Anion Gap 12 BUN 15 Creatinine 1.37 Estim Creat Clear Calc 54.4 Estimated GFR 51 Random Glucose 169 H Lactic Acid Calcium 9.1 D Magnesium 1.9 Total Bilirubin 1.1 H Direct Bilirubin 0.3 AST 11 ALT 12 Alkaline Phosphatase 130 H Troponin I High Sens 24.2 D B-Natriuretic Peptide Total Protein 6.6 Albumin 3.9 Urine Color Urine Appearance Urine pH Ur Specific [place] Urine Protein Urine Glucose (UA) Urine Ketones Urine Blood Urine Nitrite Ur Leukocyte Esterase Urine RBC Urine WBC Ur Squamous Epith Cells Urine Bacteria Hyaline Casts 01/08/23 01/08/23 01/08/23 13:33 13:33 13:33 WBC RBC Hgb Hct MCV MCH MCHC RDW Plt Count MPV Immature Gran % (Auto) Neut % (Auto) Lymph % (Auto) [place] % (Auto) Eos % (Auto) Baso % (Auto) Lymph # (Auto) [place] # (Auto) Eos # (Auto) Baso # (Auto) Abs Immat Gran (auto) Absolute Neuts (auto) Absolute Nucleated RBC Nucleated RBC % (auto) Smear Tech's Comments PT 11.7 INR 1.0 D-Dimer High Sensitivty 393 VBG pH VBG pCO2 VBG pO2 VBG HCO3 VBG O2 Saturation VBG Base Excess Sodium Potassium Chloride Carbon Dioxide Anion Gap BUN Creatinine Estim Creat Clear Calc Estimated GFR Random Glucose Lactic Acid 1.8 Calcium Magnesium Total Bilirubin Direct Bilirubin AST ALT Alkaline Phosphatase Troponin I High Sens B-Natriuretic Peptide 146 H Total Protein Albumin Urine Color Urine Appearance Urine pH Ur Specific [place] Urine Protein Urine Glucose (UA) Urine Ketones Urine Blood Urine Nitrite Ur Leukocyte Esterase Urine RBC Urine WBC Ur Squamous Epith Cells Urine Bacteria Hyaline Casts 01/08/23 01/08/23 01/09/23 13:38 13:39 05:38 WBC 13.4 H RBC 4.50 L Hgb 11.6 L Hct 36.6 L MCV 81.3 MCH 25.8 L MCHC 31.7 RDW 13.9 Plt Count 214 MPV 10.3 Immature Gran % (Auto) 0.2 Neut % (Auto) 70.2 Lymph % (Auto) 15.2 L [place] % (Auto) 12.2 H Eos % (Auto) 1.8 Baso % (Auto) 0.4 Lymph # (Auto) 2.0 [place] # (Auto) 1.6 H Eos # (Auto) 0.2 Baso # (Auto) 0.1 Abs Immat Gran (auto) 0.03 Absolute Neuts (auto) 9.4 H Absolute Nucleated RBC 0.000 Nucleated RBC % (auto) 0.0 Smear Tech's Comments VERIFIED PT INR D-Dimer High Sensitivty VBG pH 7.45 H VBG pCO2 38 VBG pO2 46 VBG HCO3 26 VBG O2 Saturation 76.0 VBG Base Excess 3.0 Sodium Potassium Chloride Carbon Dioxide Anion Gap BUN Creatinine Estim Creat Clear Calc Estimated GFR Random Glucose Lactic Acid Calcium Magnesium Total Bilirubin Direct Bilirubin AST ALT Alkaline Phosphatase Troponin I High Sens B-Natriuretic Peptide Total Protein Albumin Urine Color Yellow Urine Appearance Clear Urine pH 7.0 Ur Specific [place] <= 1.005 Urine Protein Trace Urine Glucose (UA) Negative Urine Ketones Negative Urine Blood Trace H Urine Nitrite Negative Ur Leukocyte Esterase Large (3+) H Urine RBC 0-2 Urine WBC >50 H Ur Squamous Epith Cells 0-2 Urine Bacteria 2+ Hyaline Casts 0-2 01/09/23 05:38 WBC RBC Hgb Hct MCV MCH MCHC RDW Plt Count MPV Immature Gran % (Auto) Neut % (Auto) Lymph % (Auto) [place] % (Auto) Eos % (Auto) Baso % (Auto) Lymph # (Auto) [place] # (Auto) Eos # (Auto) Baso # (Auto) Abs Immat Gran (auto) Absolute Neuts (auto) Absolute Nucleated RBC Nucleated RBC % (auto) Smear Tech's Comments PT INR D-Dimer High Sensitivty VBG pH VBG pCO2 VBG pO2 VBG HCO3 VBG O2 Saturation VBG Base Excess Sodium 140 Potassium 4.3 Chloride 107 Carbon Dioxide 25 Anion Gap 12 BUN 14 Creatinine 1.16 Estim Creat Clear Calc 64.3 Estimated GFR > 60 Random Glucose 118 H Lactic Acid Calcium 8.7 Magnesium Total Bilirubin Direct Bilirubin AST ALT Alkaline Phosphatase Troponin I High Sens B-Natriuretic Peptide Total Protein Albumin Urine Color Urine Appearance Urine pH Ur Specific [place] Urine Protein Urine Glucose (UA) Urine Ketones Urine Blood Urine Nitrite Ur Leukocyte Esterase Urine RBC Urine WBC Ur Squamous Epith Cells Urine Bacteria Hyaline Casts Imaging Radiology Impressions: ITS Impressions Chest X-Ray 01/08/23 13:46 IMPRESSION: Unremarkable examination. Chest CTA 01/08/23 15:49 IMPRESSION: 1. No central or subsegmental pulmonary emboli. Evaluation for subsegmental pulmonary emboli is limited secondary to extensive respiratory motion artifact. 2. Enlarged heart. Three-vessel coronary artery disease. 3. Calcified thyroid nodules, not well evaluated on CT. 4. Mild bronchial wall thickening suggesting small airways disease. No dense consolidation. VTE: negative Mental Status Exam Mental Status Exam Patient Appearance: Appropriate Patient Orientation: Person, Place, Time and Situation Level of Consciousness: Alert Patient Behavior: Appropriate, Talkative, Fatigued and Good Eye Contact Mood Description: Calm Affect Description: Calm Patient Cognition Impaired: No Ability to Follow Directions: Good Speech Pattern: Spontaneous Speech Memory Description: Episodic Impaired Hallucinations: None Delusions: Not Present Thought Process: Intact Thought Content: positive for Intact, positive for [place] and positive for Circumstantial Judgement: Fair Medications Medications Current Medications Acetaminophen (Acetaminophen 325 Mg Tablet) 650 mg PO Q6H PRN PRN Reason: Pain, Mild (Pain Scale 1-3) Amitriptyline HCl (Amitriptyline Hcl 25 Mg Tablet) 12.5 mg PO DAILY [facility] Last Admin: 01/09/23 08:07 Dose: 12.5 mg Artificial Tears (Artificial Tears 15 Ml Drops) 1 drop EYE-BOTH DAILY PRN PRN Reason: Dry Eyes Aspirin (Aspirin Enteric Coated 81 Mg Tablet.Dr) 81 mg PO DAILY [facility] Last Admin: 01/09/23 08:08 Dose: 81 mg Atorvastatin Calcium (Atorvastatin Calcium 40 Mg Tablet) 40 mg PO DAILY [facility] Last Admin: 01/09/23 08:08 Dose: 40 mg Diazepam (Diazepam 2 Mg Tablet) 3 mg PO TID [facility] Last Admin: 01/09/23 15:02 Dose: 3 mg Docusate Sodium (Docusate Sodium 100 Mg Capsule) 100 mg PO DAILY PRN PRN Reason: Constipation Last Admin: 01/09/23 13:55 Dose: 100 mg Enoxaparin Sodium (Enoxaparin Sodium 40 Mg/0.4 Ml Syringe) 40 mg SUBCUT Q24H [facility] Last Admin: 01/08/23 22:07 Dose: 40 mg Famotidine (Famotidine 20 Mg Tablet) 20 mg PO DAILY [facility] Last Admin: 01/09/23 08:08 Dose: 20 mg Ceftriaxone Sodium 1 gm/ (Sodium Chloride) 50 mls @ 100 mls/hr IV Q24H [facility] Last Infusion: 01/09/23 14:16 Dose: Infused Vancomycin HCl (Vancomycin/Ns) 2,000 mg in 500 mls @ 250 mls/hr IV ONCE ONE Stop: 01/09/23 16:44 Last Admin: 01/09/23 15:04 Dose: 250 mls/hr Vancomycin HCl 750 mg/ Sodium (Chloride) 265 mls @ 265 mls/hr IV Q12H [facility] Omeprazole (Omeprazole 20 Mg Capsule.Dr) 20 mg PO DAILY@0630 [facility] Last Admin: 01/09/23 05:53 Dose: 20 mg Ondansetron HCl (Ondansetron Hcl 4 Mg/2 Ml Vial) 4 mg IVPUSH Q8H PRN PRN Reason: Nausea and Vomiting Paroxetine HCl (Paroxetine Hcl 10 Mg Tablet) 10 mg PO DAILY [facility] Last Admin: 01/09/23 08:08 Dose: 10 mg Pharmacy Consult (Consult Rx Perform Med Rec) 1 each MISCELLANE ONCE PRN PRN Reason: Consult order Pharmacy Consult (Consult Rx Vancomycin Dosing) 1 each MISCELLANE DAILY PRN PRN Reason: Consult order Polyethylene Glycol (Polyethylene Glycol 3350 17 Gm Powd.Pack) 17 gm PO BID [facility] Potassium Chloride (Potassium Chloride Er 10 Meq Tablet.Er) 10 meq PO DAILY [facility] Last Admin: 01/09/23 08:08 Dose: 10 meq Senna/Docusate Sodium (Sennosides/Docusate Sodium Tablet) 2 tab PO BEDTIME [facility] Last Admin: 01/08/23 22:07 Dose: 2 tab Sodium Chloride (0.9 % Sodium Chloride Flush 3 Ml Syringe) 3 ml IVFLUSH QSHIFT [facility] Last Admin: 01/09/23 15:09 Dose: 3 ml Vitamin D (Cholecalciferol (Vitamin D3) 25 Mcg Tablet) 50 mcg PO DAILY [facility] Last Admin: 01/09/23 08:07 Dose: 50 mcg Allergies Allergies Allergy/AdvReac Type Severity Reaction Status Date / Time No Known Allergies Allergy Verified 12/21/22 11:02 [No Known Allergies*] Assessment & Plan Assessment & Plan (1) Orthostatic syncope: Status: Acute Code(s): I95.1 - Orthostatic hypotension (2) Recurrent major depression: Status: Acute Code(s): F33.9 - Major depressive disorder, recurrent, unspecified Plan 72 yo male, history of recurrent major depression with syncopal episode precipitating admission. Psychotropics thought to be the cause of this symptom. Plan: 1. Continue Paxil 2. Restart Gabapentin 100 mg bid as pt reports today severe pain in both feet 3. Continue Amitriptyline 12.5 mg HS, however, there may be more appropriate options for sleep/pain given pt's urinary retention. 4. Discontinue Valium. 5. Valium 2.5 mg a.m. 5 mg h.s. Pt reports the 5 mg at hs is very helpful for his sleep. Total time managing care of this patient today ____ minutes. Patient educated on: medication risk/benefits and therapeutic strategies
[2023-01-09 16:00] VITALS: BP 158/78; PULSE 85; RESP 20; TEMP 37.1; O2SAT 96
--- NOTE | 2023-01-09 17:12 | PC.NURSE ---
Addendum entered by Jeny Rudolph RN 01/09/23 17:14: MD Dodd entered new order for Amlodipine 2.5mg. Original Note: MD Dodd made aware via tiger text, pts last two BPs elevated, last BP recorded 158/78, other VS stable, pt asymptomatic.
[2023-01-09 20:00] VITALS: BP 151/77; PULSE 76; RESP 20; TEMP 36.8; O2SAT 93
[2023-01-09] MEDS: Enoxaparin Sodium 40 MG/0.4 ML SYRINGE SUBCUT (22:07)
[2023-01-09] MEDS: Sennosides/Docusate Sodium TABLET 2 TAB PO (22:24)
[2023-01-09] MEDS: Gabapentin 100 MG CAPSULE PO (22:25)
--- NOTE | 2023-01-09 22:43 | W.PM.IDCN ---
History of Present Illness Data of Consult Service Date: 01/09/23 Requesting physician: Marlee Dodd Primary Care Provider: Tim Seaman MD HPI Reason for consult: bacteremia He presents with weakness and syncope. He has blood cultures and gram negative kelly and gram positive cocci in blood. He reports no Witt catheter outside hospital Review of Systems Review of Systems: Yes all other systems are reviewed and are negative [facility] Past Medical History Medical History Abdomen enlarged Acute on chronic heart failure with preserved ejection fraction (HFpEF) Acute on chronic respiratory failure with hypoxia and hypercapnia Acute renal failure Acute respiratory failure with hypoxia Acute upper gastrointestinal bleeding Afib STIVEN (acute kidney injury) Altered mental status Aspiration pneumonitis Atypical pneumonia Borderline diabetic CHF exacerbation Congestive heart failure Hypertension Hyperthyroidism Hypoxia Ileus Multifocal pneumonia Myocardial infarct Partial obstruction of small intestine Pneumonia Pulmonary aspiration Recurrent major depression Sepsis associated hypotension Toxic metabolic encephalopathy Urethral stricture in male Urinary catheter in place Urinary tract infection Family History Family History Mother No problems noted. Father Heart disease Family history: reviewed and not pertinent Surgical History Surgical History History of shoulder surgery History of surgery of head Social History Social History Household Members: None Housing: Assisted Living Facility Do you presently have visiting nurse or other home services: Yes Alcohol intake: former Year quit: 1989 Patient Tobacco Use Status: Never used Tobacco Smoked in Last 30 Days: No Use of substances other than those prescribed or required for medical reasons: No Substance Use Type: Unknown Currently Displaying Signs/Symptoms of Drug Intoxication Withdrawal: No Have you been hit, kicked, punched, or otherwise hurt by someone within the past year? If so, by whom?: No Do you feel safe in your current relationship?: No Current Relationship Is there a partner from a previous relationship who is making you feel unsafe now?: No Are you made to feel afraid or neglected: No Advance Directives: Yes Advance Directives on File: Yes Advance Directives Date on File: 11/01/20 Do you have thoughts of harming others: None Do you have a plan to hurt others: No Plan Recently lost weight without trying: Unsure Eating poorly because of decreased appetite: Yes Nutrition Risks: No Nutritional Risk Poor oral hygiene: No service: No Current occupational status: retired Meds Allergies Allergy/AdvReac Type Severity Reaction Status Date / Time No Known Allergies Allergy Verified 12/21/22 11:02 [No Known Allergies*] Active Medications: Current Medications Acetaminophen (Acetaminophen 325 Mg Tablet) 650 mg PO Q6H PRN PRN Reason: Pain, Mild (Pain Scale 1-3) Amitriptyline HCl (Amitriptyline Hcl 25 Mg Tablet) 12.5 mg PO DAILY [facility] Last Admin: 01/09/23 08:07 Dose: 12.5 mg Amlodipine Besylate (Amlodipine Besylate 2.5 Mg Tablet) 2.5 mg PO DAILY [facility]; Protocol Artificial Tears (Artificial Tears 15 Ml Drops) 1 drop EYE-BOTH DAILY PRN PRN Reason: Dry Eyes Aspirin (Aspirin Enteric Coated 81 Mg Tablet.) 81 mg PO DAILY [facility] Last Admin: 01/09/23 08:08 Dose: 81 mg Atorvastatin Calcium (Atorvastatin Calcium 40 Mg Tablet) 40 mg PO DAILY [facility] Last Admin: 01/09/23 08:08 Dose: 40 mg Diazepam (Diazepam 5 Mg Tablet) 2.5 mg PO DAILY [facility] Diazepam (Diazepam 5 Mg Tablet) 5 mg PO BEDTIME [facility] Diazepam (Diazepam 2 Mg Tablet) 3 mg PO BEDTIME [facility] Stop: 01/10/23 08:00 Last Admin: 01/09/23 22:06 Dose: 3 mg Docusate Sodium (Docusate Sodium 100 Mg Capsule) 100 mg PO DAILY PRN PRN Reason: Constipation Last Admin: 01/09/23 13:55 Dose: 100 mg Enoxaparin Sodium (Enoxaparin Sodium 40 Mg/0.4 Ml Syringe) 40 mg SUBCUT Q24H [facility] Last Admin: 01/09/23 22:07 Dose: 40 mg Famotidine (Famotidine 20 Mg Tablet) 20 mg PO DAILY [facility] Last Admin: 01/09/23 08:08 Dose: 20 mg Gabapentin (Gabapentin 100 Mg Capsule) 100 mg PO BID [facility] Last Admin: 01/09/23 22:25 Dose: 100 mg Ceftriaxone Sodium 1 gm/ (Sodium Chloride) 50 mls @ 100 mls/hr IV Q24H [facility] Last Infusion: 01/09/23 14:16 Dose: Infused Vancomycin HCl 750 mg/ Sodium (Chloride) 265 mls @ 265 mls/hr IV Q12H [facility] Omeprazole (Omeprazole 20 Mg Capsule.Dr) 20 mg PO DAILY@0630 [facility] Last Admin: 01/09/23 05:53 Dose: 20 mg Ondansetron HCl (Ondansetron Hcl 4 Mg/2 Ml Vial) 4 mg IVPUSH Q8H PRN PRN Reason: Nausea and Vomiting Paroxetine HCl (Paroxetine Hcl 10 Mg Tablet) 10 mg PO DAILY [facility] Last Admin: 01/09/23 08:08 Dose: 10 mg Pharmacy Consult (Consult Rx Perform Med Rec) 1 each MISCELLANE ONCE PRN PRN Reason: Consult order Pharmacy Consult (Consult Rx Vancomycin Dosing) 1 each MISCELLANE DAILY PRN PRN Reason: Consult order Polyethylene Glycol (Polyethylene Glycol 3350 17 Gm Powd.Pack) 17 gm PO BID [facility] Last Admin: 01/09/23 22:07 Dose: 17 gm Potassium Chloride (Potassium Chloride Er 10 Meq Tablet.Er) 10 meq PO DAILY [facility] Last Admin: 01/09/23 08:08 Dose: 10 meq Senna/Docusate Sodium (Sennosides/Docusate Sodium Tablet) 2 tab PO BEDTIME [facility] Last Admin: 01/09/23 22:24 Dose: 2 tab Sodium Chloride (0.9 % Sodium Chloride Flush 3 Ml Syringe) 3 ml IVFLUSH QSHIFT [facility] Last Admin: 01/09/23 22:25 Dose: 3 ml Vitamin D (Cholecalciferol (Vitamin D3) 25 Mcg Tablet) 50 mcg PO DAILY [facility] Last Admin: 01/09/23 08:07 Dose: 50 mcg Home Medications Medication Instructions Recorded Confirmed Last Taken Type cholecalciferol (vitamin D3) 50 50 mcg PO DAILY 02/17/22 01/08/23 Unknown History mcg (2,000 unit) tablet gabapentin 100 mg capsule 200 mg PO BID 02/17/22 01/08/23 Unknown History paroxetine HCl 10 mg tablet 10 mg PO DAILY 02/17/22 01/08/23 Unknown History potassium chloride 10 mEq 10 meq PO DAILY 02/17/22 01/08/23 Unknown History tablet,extended release(part/cryst) sennosides 8.6 mg-docusate sodium 2 tab PO BEDTIME 02/17/22 01/08/23 Unknown History 50 mg tablet (Senna Plus) Probiotic 1 cap PO BID 11/13/22 01/08/23 Unknown History diazepam 5 mg tablet 5 mg PO TID 11/13/22 01/08/23 Unknown History naproxen 500 mg tablet (Naprosyn) 500 mg PO Q12H PRN Pain 11/13/22 01/08/23 Unknown History omeprazole 20 mg capsule,delayed 20 mg PO DAILY 11/13/22 01/08/23 Unknown History release amitriptyline 25 mg tablet 25 mg PO DAILY 12/06/22 01/08/23 Unknown History atorvastatin 40 mg tablet 40 mg PO DAILY 12/06/22 01/08/23 Unknown History finasteride 5 mg tablet 5 mg PO DAILY 12/06/22 01/08/23 Unknown History losartan 100 mg tablet 100 mg PO DAILY 12/06/22 01/08/23 Unknown History tamsulosin 0.4 mg capsule 0.4 mg PO BEDTIME 12/06/22 01/08/23 Unknown History acetaminophen 325 mg tablet 650 mg PO Q4H PRN Pain 01/08/23 01/08/23 Unknown History carboxymethylcellulose sodium 1 % 1 drp ophthalmic (eye) DAILY PRN 01/08/23 01/08/23 Unknown History eye drops (Artificial Tears Dry Eyes (carboxymethylcellulose)) famotidine 20 mg tablet 20 mg PO DAILY 01/08/23 01/08/23 Unknown History Physical Exam Vital Signs: Vital Signs: Last Vital Signs Temp 98.3 F 01/09/23 20:00 Pulse 76 01/09/23 20:00 Resp 20 01/09/23 20:00 BP 151/77 H 01/09/23 20:00 Pulse Ox 93 01/09/23 20:00 O2 Del Method Room Air 01/09/23 20:00 O2 Flow Rate 2 01/08/23 15:23 BMI result Body Mass Index 30.7 Const: General: cooperative HEENT: Head: Yes normal to inspection Face and sinus: Yes normal facial exam Mouth: Normal oral and palatal mucosa present Teeth and gingiva: dentition normal Eyes: General: appearance normal, both eyes and all related structures Pupils: Equal, round and reactive pupils present Resp: Effort & Inspection: normal respiratory effort Cardio: Rate: regular rate Rhythm: regular rhythm GI: Palpation (GI): Soft to palpation and nontender : General: Yes no CVA tenderness Back/Spine/Pelvis: Back: no CVA tenderness Skin: General skin exam: no rashes or lesions noted Neuro: General: moves all extremities Cranial nerves: Yes Equal, round and reactive pupils present Extrem: General: Yes normal to inspection Psych: Other: slow to respond Results Labs 01/09/23 05:38 01/09/23 05:38 Labs: Short CBC 01/09/23 Range/Units 05:38 WBC 13.4 H (4.8-10.8) X10*3/uL Hgb 11.6 L (14.0-18.0) g/dl Hct 36.6 L (42.0-52.0) % Plt Count 214 (160-400) X10*3/uL BMP 01/09/23 05:38 Sodium 140 Potassium 4.3 Chloride 107 Carbon Dioxide 25 BUN 14 Creatinine 1.16 Calcium 8.7 Microbiology Microbiology Results: Microbiology 01/08/23 13:33 Blood - Venous Blood Culture - Preliminary Prelim: GNR Gram Stain only Prelim: GPC Gram Stain only 01/08/23 13:39 Blood - Venous Blood Culture - Preliminary Prelim: GNR Gram Stain only 01/08/23 Unknown Urine Catheterized - Witt Catheter Urine Culture - Preliminary Culture in progress. Assessment and Plan (1) Sepsis: Status: Acute There is gram negative and gram positive cocci in blood. There is urinary source likely (2) Urinary tract infection: Status: Acute (3) Orthostatic syncope: Status: Acute Plan Continue Ceftriaxone and Vancomycin pending above. Urology follow prn need. Time Spent With Patient Time: Total time managing care of this patient today ____ minutes.
[2023-01-10 03:21] VITALS: BP 137/71; PULSE 72; RESP 18; TEMP 36.7; O2SAT 92
[2023-01-10] MEDS: vancomycin HCL 750 MG in 0.9 % Sodium Chloride 250 ML 265 MG IV ×2 (04:24→15:36)
[2023-01-10] MEDS: Omeprazole 20 MG CAPSULE.DR PO (05:59)
[2023-01-10 08:00] VITALS: BP 150/78; PULSE 76; RESP 18; TEMP 36.6; O2SAT 93
[2023-01-10] MEDS: Potassium Chloride ER 10 MEQ TABLET.ER PO (08:17)
[2023-01-10] MEDS: Aspirin Enteric Coated 81 MG TABLET.DR PO (08:17)
[2023-01-10] MEDS: Cholecalciferol (Vitamin D3) 25 MCG TABLET 50 MCG PO (08:17)
[2023-01-10] MEDS: diazePAM 5 MG TABLET 2.5 MG PO (08:17)
[2023-01-10] MEDS: Atorvastatin Calcium 40 MG TABLET PO (08:18)
[2023-01-10] MEDS: 0.9 % Sodium Chloride Flush 3 ML SYRINGE IVFLUSH ×3 (08:18→19:55)
[2023-01-10] MEDS: amLODIPine Besylate 2.5 MG TABLET PO (08:18)
[2023-01-10] MEDS: Gabapentin 100 MG CAPSULE PO ×2 (08:18→19:56)
[2023-01-10] MEDS: polyethylene glycoL 3350 17 GM POWD.PACK PO ×2 (08:18→19:56)
[2023-01-10] MEDS: Famotidine 20 MG TABLET PO (08:23)
[2023-01-10 09:02] LABS: Creatinine Clr Calc Pharmacy 64.3; Estimated Glomerular Filt Rate > 60
[2023-01-10] MEDS: cefTRIAXone sodium 1 GM in 0.9 % Sodium Chloride 50 ML IV (12:30)
[2023-01-10] MEDS: PARoxetine HCL 10 MG TABLET PO (13:10)
--- NOTE | 2023-01-10 13:34 | MHC.CM.PN ---
Per MD rounds no discharge today. Patient continues with Psych med adjustments. Norvasc was added for elevated BP. DP Return to [facility] via BLS.
[2023-01-10 14:54] LABS: Vancomycin Random 12.3 mcg/mL (15-20)
[2023-01-10 15:41] VITALS: BP 160/78; PULSE 74; RESP 16; TEMP 36.4; O2SAT 95
--- NOTE | 2023-01-10 16:35 | P.PNIM_ITS ---
Subjective Subjective Date of Service: 01/10/23 Interval History: Orthostatic hypotension, UTI Review of Systems mental status slowly improving Denies any fever or chills. Physical Exam Vital Signs: Vital Signs: Last Vital Signs Temp 97.5 F 01/10/23 15:41 Pulse 74 01/10/23 15:41 Resp 16 01/10/23 15:41 BP 160/78 H 01/10/23 15:41 Pulse Ox 95 01/10/23 15:41 O2 Del Method Room Air 01/10/23 15:41 O2 Flow Rate 2 01/08/23 15:23 BMI result Body Mass Index 30.7 Appearance: Alert.? Oriented X3 cvs: rrr, [id number] . res: air entry fair ,no rales or wheezing abd: no rebound or guarding ,nt, bs present. ext pulses present , no cyanosis . neuro: axo3 , nonfocal.generalised weak. Objective Data Active Medications Acetaminophen (Acetaminophen 325 Mg Tablet) 650 mg PO Q6H PRN PRN Reason: Pain, Mild (Pain Scale 1-3) Amitriptyline HCl (Amitriptyline Hcl 25 Mg Tablet) 12.5 mg PO BEDTIME [facility] Amlodipine Besylate (Amlodipine Besylate 2.5 Mg Tablet) 2.5 mg PO DAILY [facility]; Protocol Last Admin: 01/10/23 08:18 Dose: 2.5 mg Documented By: GRACIELA Artificial Tears (Artificial Tears 15 Ml Drops) 1 drop EYE-BOTH DAILY PRN PRN Reason: Dry Eyes Aspirin (Aspirin Enteric Coated 81 Mg Tablet.) 81 mg PO DAILY [facility] Last Admin: 01/10/23 08:17 Dose: 81 mg Documented By: GRACIELA Atorvastatin Calcium (Atorvastatin Calcium 40 Mg Tablet) 40 mg PO DAILY [facility] Last Admin: 01/10/23 08:18 Dose: 40 mg Documented By: GRACIELA Diazepam (Diazepam 5 Mg Tablet) 2.5 mg PO DAILY [facility] Last Admin: 01/10/23 08:17 Dose: 2.5 mg Documented By: GRACIELA Diazepam (Diazepam 5 Mg Tablet) 5 mg PO BEDTIME [facility] Docusate Sodium (Docusate Sodium 100 Mg Capsule) 100 mg PO DAILY PRN PRN Reason: Constipation Last Admin: 01/09/23 13:55 Dose: 100 mg Documented By: GRACIELA Enoxaparin Sodium (Enoxaparin Sodium 40 Mg/0.4 Ml Syringe) 40 mg SUBCUT Q24H [facility] Last Admin: 01/09/23 22:07 Dose: 40 mg Documented By: TUYET Famotidine (Famotidine 20 Mg Tablet) 20 mg PO DAILY [facility] Last Admin: 01/10/23 08:23 Dose: 20 mg Documented By: GRACIELA Gabapentin (Gabapentin 100 Mg Capsule) 100 mg PO BID [facility] Last Admin: 01/10/23 08:18 Dose: 100 mg Documented By: GRACIELA Ceftriaxone Sodium 1 gm/ (Sodium Chloride) 50 mls @ 100 mls/hr IV Q24H [facility] Last Infusion: 01/10/23 13:05 Dose: 0 mls/hr Documented By: GRACIELA Vancomycin HCl 750 mg/ Sodium (Chloride) 265 mls @ 265 mls/hr IV Q12H [facility] Last Admin: 01/10/23 15:36 Dose: 265 mls/hr Documented By: GRACIELA Omeprazole (Omeprazole 20 Mg Capsule.Dr) 20 mg PO DAILY@0630 [facility] Last Admin: 01/10/23 05:59 Dose: 20 mg Documented By: TUYET Ondansetron HCl (Ondansetron Hcl 4 Mg/2 Ml Vial) 4 mg IVPUSH Q8H PRN PRN Reason: Nausea and Vomiting Paroxetine HCl (Paroxetine Hcl 10 Mg Tablet) 10 mg PO DAILY [facility] Last Admin: 01/10/23 13:10 Dose: 10 mg Documented By: GRACIELA Pharmacy Consult (Consult Rx Perform Med Rec) 1 each MISCELLANE ONCE PRN PRN Reason: Consult order Pharmacy Consult (Consult Rx Vancomycin Dosing) 1 each MISCELLANE DAILY PRN PRN Reason: Consult order Polyethylene Glycol (Polyethylene Glycol 3350 17 Gm Powd.Pack) 17 gm PO BID [facility] Last Admin: 01/10/23 08:18 Dose: 17 gm Documented By: GRACIELA Potassium Chloride (Potassium Chloride Er 10 Meq Tablet.Er) 10 meq PO DAILY [facility] Last Admin: 01/10/23 08:17 Dose: 10 meq Documented By: GRACIELA Senna/Docusate Sodium (Sennosides/Docusate Sodium Tablet) 2 tab PO BEDTIME [facility] Last Admin: 01/09/23 22:24 Dose: 2 tab Documented By: TUYET Sodium Chloride (0.9 % Sodium Chloride Flush 3 Ml Syringe) 3 ml IVFLUSH QSHIFT [facility] Last Admin: 01/10/23 08:18 Dose: 3 ml Documented By: GRACIELA Vitamin D (Cholecalciferol (Vitamin D3) 25 Mcg Tablet) 50 mcg PO DAILY [facility] Last Admin: 01/10/23 08:17 Dose: 50 mcg Documented By: GRACIELA Labs 01/09/23 05:38 01/10/23 08:25 Labs: Laboratory Results - last 24 hr 01/10/23 01/10/23 08:25 14:29 Estim Creat Clear Calc 64.3 Estimated GFR > 60 Random Vancomycin 12.3 L Microbiology Microbiology Results: Microbiology 01/08/23 13:39 Blood Culture - Preliminary Blood - Venous Gram negative kelly 01/08/23 13:33 Blood Culture - Preliminary Blood - Venous Gram negative kelly Coag negative Staphylococcus 01/08/23 Unknown Urine Culture - Final Urine Catheterized - Oseguera Catheter Assessment and Plan (1) Urinary tract infection: Status: Acute (2) Bacteremia: Status: Acute Plan 72-year-old male with past medical history of chronic heart failure with Preserved ejection fraction,? COPD O2 dependent, type 2 diabetes, urinary retention, depression, history of AFib, HTN, hypothyroidism, CAD, history of dysphagia admitted for UTI with sepsis and orthostatic syncope. Orthostatic syncope -Given 2L IV NS in ED. Hold on further IVF given hx of CHF adjusted diazepam to 3mg TID, decrease amitriptyline to 12.5mg, gabapentin, hold antihypertensives for now,moniter nitor on telemetry -Repeat orthostatics prn Oseguera catheter associated UTI with sepsis -UA with 3+ leuks, negative nitrites, trace blood, 2+ bacteria -Recent admission with Klebsiella bacteremia urine cultures pendin , blood culture -grew 2/2 gram neg rods, 1/2 gram gram po sitive cocci. -IV ceftriaxone (initiated 01/08) -WBC 19.9-13.4, tachycardic, no new fevers, Lactic acid normal, no end organ damage Acute toxic metabolic encephalopathy as above- related to UTI and polypharmacy -Hold/change sedating medications as above mental status slowly improving -Treat UTi as above Mood disorder -continue paroxetine. Adjust valium, amitriptyline, gabapentin as above -Psych consult for med review HTN- blood pressures soft -hold antihypertensives in setting of sepsis, resume as appropriate BPH with urinary retension -continue oseguera -Hold flomax and proscar due to orthostatic hypotension, resume as approrpriate HFpEF- no acute exacerbation -hold lasix in setting of sepsis COPD with chronic hypoxemic respiratory failure- no acute exacerbation -Supplemental O2 prn to maintain oximetry 90-92% -albuterol prn History atrial fibrillation-not on anticoagulation -due to significant hematuria history(last admission) not ac or? on rate control- EKG shows sinus tachycardia CAD/history NSTEMI/HLD-continue ASA, statin DVT prophylaxis- lovenox inpatient need: Orthostasis, UTI, bacteremia-need IV antibiotics, also need psych medication adjustment. Time Spent With Patient Time: Total time managing care of this patient today ____ minutes. Quality Stroke Does the patient have a stroke diagnosis?: No VTE Prior VTE?: No VTE Risk Level:: Medical - moderate - high VTE Device Contraindication: Treatment Not Indicated VTE Drug Contraindication: N/A - Med Ordered
[2023-01-10 19:50] VITALS: BP 153/67; PULSE 75; RESP 17; TEMP 36.6; O2SAT 93
[2023-01-10] MEDS: Enoxaparin Sodium 40 MG/0.4 ML SYRINGE SUBCUT (19:51)
[2023-01-10] MEDS: Sennosides/Docusate Sodium TABLET 2 TAB PO (19:55)
[2023-01-10] MEDS: diazePAM 2 MG TABLET 3 MG PO (19:55)
[2023-01-10] MEDS: Amitriptyline HCl 25 MG TABLET 12.5 MG PO (19:56)
[2023-01-11] VITALS (8 sets, daily range): BP systolic 142–191; BP diastolic 74–90; PULSE 68–89; RESP 14–18; TEMP 36.1–36.4; O2SAT 92–96
[2023-01-11] MEDS: vancomycin HCL 750 MG in 0.9 % Sodium Chloride 250 ML 265 MG IV (04:09)
[2023-01-11] MEDS: Acetaminophen 325 MG TABLET 650 MG PO (04:16)
[2023-01-11] MEDS: Omeprazole 20 MG CAPSULE.DR PO (05:20)
[2023-01-11 06:37] LABS: Creatinine Clr Calc Pharmacy 70.3; Estimated Glomerular Filt Rate > 60
[2023-01-11] MEDS: Potassium Chloride ER 10 MEQ TABLET.ER PO (09:43)
[2023-01-11] MEDS: diazePAM 2 MG TABLET 3 MG PO ×3 (09:43→20:30)
[2023-01-11] MEDS: Aspirin Enteric Coated 81 MG TABLET.DR PO (09:43)
[2023-01-11] MEDS: 0.9 % Sodium Chloride Flush 3 ML SYRINGE IVFLUSH ×3 (09:43→20:31)
[2023-01-11] MEDS: Atorvastatin Calcium 40 MG TABLET PO (09:43)
[2023-01-11] MEDS: Cholecalciferol (Vitamin D3) 25 MCG TABLET 50 MCG PO (09:43)
[2023-01-11] MEDS: Famotidine 20 MG TABLET PO (09:45)
[2023-01-11] MEDS: PARoxetine HCL 10 MG TABLET PO (09:45)
[2023-01-11] MEDS: Gabapentin 100 MG CAPSULE PO ×2 (09:46→20:30)
[2023-01-11] MEDS: amLODIPine Besylate 5 MG TABLET PO (09:46)
[2023-01-11] MEDS: polyethylene glycoL 3350 17 GM POWD.PACK PO ×2 (09:46→20:30)
[2023-01-11] MEDS: Losartan Potassium 50 MG TABLET 100 MG PO (14:03)
[2023-01-11] MEDS: cefTRIAXone sodium 1 GM in 0.9 % Sodium Chloride 50 ML IV (14:03)
[2023-01-11 14:58] LABS: Vancomycin Trough 13.6 mcg/mL (10.0-20.0)
--- NOTE | 2023-01-11 16:18 | P.PNIM_ITS ---
Subjective Subjective Date of Service: 01/11/23 Interval History: Orthostatic hypotension, UTI Review of Systems mental status slowly improved ,but talks slowly Denies any fever or chills. Physical Exam Vital Signs: Vital Signs: Last Vital Signs Temp 97.5 F 01/11/23 15:04 Pulse 69 01/11/23 15:04 Resp 14 01/11/23 15:04 BP 182/76 H 01/11/23 15:04 Pulse Ox 96 01/11/23 15:04 O2 Del Method Room Air 01/11/23 15:04 O2 Flow Rate 2 01/08/23 15:23 BMI result Body Mass Index 30.7 Appearance: Alert.? Oriented X3 cvs: rrr, [id number] . res: air entry fair ,no rales or wheezing abd: no rebound or guarding ,nt, bs present. ext pulses present , no cyanosis . neuro: axo3 , nonfocal.generalised weak. Objective Data Active Medications Acetaminophen (Acetaminophen 325 Mg Tablet) 650 mg PO Q6H PRN PRN Reason: Pain, Mild (Pain Scale 1-3) Last Admin: 01/11/23 04:16 Dose: 650 mg Documented By: DIPAK Amitriptyline HCl (Amitriptyline Hcl 25 Mg Tablet) 12.5 mg PO BEDTIME [facility] Last Admin: 01/10/23 19:56 Dose: 12.5 mg Documented By: DIPAK Amlodipine Besylate (Amlodipine Besylate 5 Mg Tablet) 5 mg PO DAILY [facility]; Protocol Last Admin: 01/11/23 09:46 Dose: 5 mg Documented By: DEEPAK Artificial Tears (Artificial Tears 15 Ml Drops) 1 drop EYE-BOTH DAILY PRN PRN Reason: Dry Eyes Aspirin (Aspirin Enteric Coated 81 Mg Tablet.) 81 mg PO DAILY [facility] Last Admin: 01/11/23 09:43 Dose: 81 mg Documented By: DEEPAK Atorvastatin Calcium (Atorvastatin Calcium 40 Mg Tablet) 40 mg PO DAILY [facility] Last Admin: 01/11/23 09:43 Dose: 40 mg Documented By: DEPEAK Diazepam (Diazepam 2 Mg Tablet) 3 mg PO TID [facility] Last Admin: 01/11/23 14:04 Dose: 3 mg Documented By: DEEPAK Docusate Sodium (Docusate Sodium 100 Mg Capsule) 100 mg PO DAILY PRN PRN Reason: Constipation Last Admin: 01/09/23 13:55 Dose: 100 mg Documented By: GRACIELA Enoxaparin Sodium (Enoxaparin Sodium 40 Mg/0.4 Ml Syringe) 40 mg SUBCUT Q24H [facility] Last Admin: 01/10/23 19:51 Dose: 40 mg Documented By: DIPAK Famotidine (Famotidine 20 Mg Tablet) 20 mg PO DAILY [facility] Last Admin: 01/11/23 09:45 Dose: 20 mg Documented By: DEEPAK Gabapentin (Gabapentin 100 Mg Capsule) 100 mg PO BID [facility] Last Admin: 01/11/23 09:46 Dose: 100 mg Documented By: DEEPAK Ceftriaxone Sodium 1 gm/ (Sodium Chloride) 50 mls @ 100 mls/hr IV Q24H [facility] Last Infusion: 01/11/23 14:52 Dose: 0 mls/hr Documented By: DEEPAK Losartan Potassium (Losartan Potassium 50 Mg Tablet) 100 mg PO DAILY [facility]; P rotocol Last Admin: 01/11/23 14:03 Dose: 100 mg Documented By: DEEPAK Omeprazole (Omeprazole 20 Mg Capsule.Dr) 20 mg PO DAILY@0630 [facility] Last Admin: 01/11/23 05:20 Dose: 20 mg Documented By: DIPAK Ondansetron HCl (Ondansetron Hcl 4 Mg/2 Ml Vial) 4 mg IVPUSH Q8H PRN PRN Reason: Nausea and Vomiting Paroxetine HCl (Paroxetine Hcl 10 Mg Tablet) 10 mg PO DAILY [facility] Last Admin: 01/11/23 09:45 Dose: 10 mg Documented By: DEEPAK Pharmacy Consult (Consult Rx Perform Med Rec) 1 each MISCELLANE ONCE PRN PRN Reason: Consult order Polyethylene Glycol (Polyethylene Glycol 3350 17 Gm Powd.Pack) 17 gm PO BID [facility] Last Admin: 01/11/23 09:46 Dose: 17 gm Documented By: DEEPAK Potassium Chloride (Potassium Chloride Er 10 Meq Tablet.Er) 10 meq PO DAILY [facility] Last Admin: 01/11/23 09:43 Dose: 10 meq Documented By: DEEPAK Senna/Docusate Sodium (Sennosides/Docusate Sodium Tablet) 2 tab PO BEDTIME [facility] Last Admin: 01/10/23 19:55 Dose: 2 tab Documented By: DIPAK Sodium Chloride (0.9 % Sodium Chloride Flush 3 Ml Syringe) 3 ml IVFLUSH QSHIFT [facility] Last Admin: 01/11/23 14:49 Dose: 3 ml Documented By: DEEPAK Vitamin D (Cholecalciferol (Vitamin D3) 25 Mcg Tablet) 50 mcg PO DAILY [facility] Last Admin: 01/11/23 09:43 Dose: 50 mcg Documented By: DEEPAK Labs 01/09/23 05:38 01/11/23 05:40 Labs: Laboratory Results - last 24 hr 01/11/23 01/11/23 05:40 14:06 Estim Creat Clear Calc 70.3 Estimated GFR > 60 Vancomycin Trough 13.6 Microbiology Microbiology Results: Microbiology 01/08/23 13:39 Blood Culture - Final Blood - Venous Escherichia coli 01/08/23 13:33 Blood Culture - Final Blood - Venous Escherichia coli Coag negative Staphylococcus Assessment and Plan (1) Urinary tract infection: Status: Acute (2) Bacteremia: Status: Acute Plan 72-year-old male with past medical history of chronic heart failure with Preserved ejection fraction,? COPD O2 dependent, type 2 diabetes, urinary retention, depression, history of AFib, HTN, hypothyroidism, CAD, history of dysphagia admitted for UTI with sepsis and orthostatic syncope. Orthostatic syncope -Given 2L IV NS in ED. Hold on further IVF given hx of CHF continue diazepam to 3mg TID, decrease amitriptyline to 12.5mg, gabapentin, hold antihypertensives for now,moniter nitor on telemetry -Repeat orthostatics neg Oseguera catheter associated UTI with sepsis -UA with 3+ leuks, negative nitrites, trace blood, 2+ bacteria -Recent admission with Klebsiella bacteremia urine cultures pendin , blood culture-e coli -senstive to ceftriaxone /coagulase negative Staph . Leukocytosis improving, no fever. The -IV ceftriaxone (initiated 01/08), need ID follow-up for antibiotic for dispos ition. Acute toxic metabolic encephalopathy as above- related to UTI and polypharmacy -Hold/change sedating medications as above mental status slowly improving -Treat UTi as above Mood disorder -continue paroxetine. Adjust valium, amitriptyline, gabapentin as above -Psych consult for med review HTN-uncontrolled Discussed with Nephrology: Start losartan, monitor blood pressure, repeat orthostasis BPH with urinary retension -continue oseguera -Hold flomax and proscar due to orthostatic hypotension, resume as approrpriate HFpEF- no acute exacerbation -hold lasix in setting of sepsis COPD with chronic hypoxemic respiratory failure- no acute exacerbation -Supplemental O2 prn to maintain oximetry 90-92% -albuterol prn History atrial fibrillation-not on anticoagulation -due to significant hematuria history(last admission) not ac or? on rate control- EKG shows sinus tachycardia CAD/history NSTEMI/HLD-continue ASA, statin DVT prophylaxis- lovenox inpatient need: Orthostasis symptoms and hypertension monitoring-added antihypertension medication, in addition has bacteremia Gram-negative E coli- need ID follow-up for final antibiotics use. Time Spent With Patient Time: Total time managing care of this patient today ____ minutes. Quality Stroke Does the patient have a stroke diagnosis?: No VTE Prior VTE?: No VTE Risk Level:: Medical - moderate - high VTE Device Contraindication: Treatment Not Indicated VTE Drug Contraindication: N/A - Med Ordered
[2023-01-11] MEDS: Enoxaparin Sodium 40 MG/0.4 ML SYRINGE SUBCUT (20:29)
[2023-01-11] MEDS: Amitriptyline HCl 25 MG TABLET 12.5 MG PO (20:30)
[2023-01-11] MEDS: Sennosides/Docusate Sodium TABLET 2 TAB PO (20:31)
[2023-01-12 03:23] VITALS: BP 180/86; PULSE 79; RESP 18; TEMP 36.6; O2SAT 96
[2023-01-12 04:35] VITALS: BP 146/86
[2023-01-12] MEDS: Acetaminophen 325 MG TABLET 650 MG PO (04:40)
[2023-01-12] MEDS: Omeprazole 20 MG CAPSULE.DR PO (05:24)
[2023-01-12 08:00] VITALS: BP 152/82; PULSE 75; RESP 18; TEMP 36.1; O2SAT 96
[2023-01-12 08:28] LABS: Creatinine Clr Calc Pharmacy 64.3; Estimated Glomerular Filt Rate > 60
[2023-01-12] MEDS: diazePAM 2 MG TABLET 3 MG PO ×2 (08:39→16:18)
[2023-01-12] MEDS: Potassium Chloride ER 10 MEQ TABLET.ER PO (08:40)
[2023-01-12] MEDS: polyethylene glycoL 3350 17 GM POWD.PACK PO (08:40)
[2023-01-12] MEDS: Famotidine 20 MG TABLET PO (08:40)
[2023-01-12] MEDS: Atorvastatin Calcium 40 MG TABLET PO (08:40)
[2023-01-12] MEDS: amLODIPine Besylate 5 MG TABLET PO (08:40)
[2023-01-12] MEDS: Gabapentin 100 MG CAPSULE PO (08:40)
[2023-01-12] MEDS: PARoxetine HCL 10 MG TABLET PO (08:40)
[2023-01-12] MEDS: Cholecalciferol (Vitamin D3) 25 MCG TABLET 50 MCG PO (08:40)
[2023-01-12] MEDS: Losartan Potassium 50 MG TABLET 100 MG PO (08:40)
[2023-01-12] MEDS: 0.9 % Sodium Chloride Flush 3 ML SYRINGE IVFLUSH (08:40)
[2023-01-12] MEDS: Aspirin Enteric Coated 81 MG TABLET.DR PO (08:40)
[2023-01-12] MEDS: cefTRIAXone sodium 1 GM in 0.9 % Sodium Chloride 50 ML IV (13:15)
[2023-01-12 13:59] LABS: COVID-19 Test Negative (Negative); IDNOW Serial# 08D9AD1C
--- NOTE | 2023-01-12 14:01 | P.DS_ITS ---
DS: Providers Provider Date of Service: 01/12/23 Date of admission: 01/08/23 17:50 Date of discharge: 01/12/23 Primary care physician: Tim Seaman MD Consults: 01/08/23 18:29 Consult to Psychiatry Routine Consulting Provider: Psych Covering Reason for consultation: med review- orthostatic hypotension 01/09/23 12:45 Consult to Infectious Diseases Routine Consulting Provider: [facility] [place] Infect[facility] Disease Reason for consultation: uti/bactermia? Has provider been notified: No Attending physician on discharge: Marlee Dodd Discharging clinician: Marlee Dodd DS: Diagnosis Discharge Diagnosis (1) Urinary tract infection: Status: Acute (2) Bacteremia: Status: Acute DS: Summary Hospital Course Hospital Course: 72-year-old male with past medical history of chronic heart failure with Preserved ejection fraction,? COPD O2 dependent, type 2 diabetes, urinary retention, depression, history of AFib, HTN, hypothyroidism, CAD, history of dysphagia, presents to the hospital?following a [facility]opal episode at [facility] where [facility]. The patient denies having syncopized or falling, but it was witnessed by staff.? Per EMS report, staff noted SBP of 80 after the episode. He states when he woke up he was very fatigued and weak. When he got up to use the restroom he was lightheaded. Denies fevers, chills, abd pain, n/v/d, urinary symptoms, palpitations, sob, or chest pain. Does have chronic oseguera due to urinary retention and has hx recurrent UTI. Recently admitted for Klebsiella bacteremia. On arrival, patient with brief episode of hypoxia to 88-89% placed on 2L supplemental O2 but has been weaned and maintaining oximetry 94%. On arrival, blood pressures soft ranging 92-49 improved to 128/65 with IVF. He was tachycardic to 112 and febrile to 101.8. He has a leukocytosis of 19.9. VBG pH 7.45, pCO2 38, PO2 46, bicarb 26.? Renal function normal, electrolyte levels normal.? Troponin 24.2, BNP 146.? Urinalysis with 3+ leukocytes, negative nitrates, trace blood, positive urinary sediment, 2+ bacteria.? D-dimer elevated at 393.? CXR unremarkable.? Chest CTA negative for central or subsegmental pulmonary emboli though evaluation of subsegmental PE is limited due to respiratory motion artifact.? There is also cardiomegaly with three-vessel coronary artery disease and calcified thyroid nodules.? There is also mild bronchial wall thickening suggestive of small airways disease.? No dense airway consolidation.? In the ED, given 2 L IV NS, 1 g ceftriaxone.? Orthostatics found to be positive with HR 81 -->103 and BP128/65 --> 77/47 from laying to sitting. Hospital course: Patient was admitted for possible syncope, also found to have the toxic metabolic encephalopathy and sepsis secondary to UTI, Patient was on multiple psych medications: Patient was started on IV antibiotics, psych medication amitriptyline and Valium was adjusted, blood cultures sent: With above supportive care patient toxic metabolic encephalopathy seems to be improved, blood culture grew E coli sensitive to ceftriaxone: Patient was switched to p.o. antibiotics upon discharge, psych medications adjusted as per psych recommendations. patient initial syncope likely related to orthostasis(which if possible related to multiple psych medications and also blood pressure medications might have contributed to lesser extent.): Patient was given IV fluids, and psych medications are adjusted as above, also blood pressure medications were also put on hold initially- with supportive care patient blood pressure improved, discussed with the psychiatry-recommended to continue current adjusted medication doses for amitriptyline and Valium. In addition patient was started back on blood pressure medication losartan and amlodipine added patient is currently tolerating, no orthostasis no new symptoms. Plan: As above seen by psych: Amitriptyline adjusted to 12.5 mg daily, a in addition valium is adjusted to 3 po mg t.i.d.( monitor for sedation) htn-2.5 mg amlodipine is added in addition to losartan-monitor blood pressure and consider adjusting medications cautiously since patient has orthostasis recently. Please complete course of antibiotics Ceftin for 2 weeks as recommended by Infectious Disease. Above management discussed the patient in detail length he understand and in agreement with the above plan, time spent 50 minute. Time Spent with Patient Time attestation: Total time managing care of this patient today ____ minutes. Discharge coordination time: Greater than 30 minutes Quality: Safe Use of Opioids Does Pt have an Active Cancer Diagnosis on the Problem List?: No Quality: Stroke Does the patient have a stroke diagnosis?: No Physical Exam Vital Signs: Vital Signs: Last Vital Signs Temp 96.9 F 01/12/23 08:00 Pulse 75 01/12/23 08:00 Resp 18 01/12/23 08:00 BP 152/82 H 01/12/23 08:00 Pulse Ox 96 01/12/23 08:00 O2 Del Method Room Air 01/12/23 08:00 O2 Flow Rate 2 01/08/23 15:23 BMI result Body Mass Index 30.7 Appearance: Alert.? Oriented X3.? not in distress.? cvs: rrr, [id number] , no murmur res: clear to auscultation ,no rhonchii or wheezing abd: no rebound or guarding ,nt, bs present. ext pulses present , no cyanosis . neuro: axo3 , nonfocal. DS: Data Data Completed and Pending Completed studies during hospitalization [Text1]: Procedures Drainage of Bladder with Drainage Device, Percutaneous Endoscopic Approach (11/13/22) Excision of Urethra, Via Natural or Artificial Opening Endoscopic (11/13/22) Extirpation of Matter from Bladder, Via Natural or Artificial Opening Endoscopic (11/13/22) Insertion of Endotracheal Airway into Trachea, Via Natural or Artificial Opening (10/17/20) Insertion of Endotracheal Airway into Trachea, Via Natural or Artificial Opening Endoscopic (10/17/20) Introduction of Vasopressor into Peripheral Vein, Percutaneous Approach (10/17/20) Removal of Drainage Device from Bladder, External Approach (11/13/22) Respiratory Ventilation, Greater than 96 Consecutive Hours (10/17/20) Transfusion of Nonautologous Red Blood Cells into Peripheral Vein, Percutaneous Approach (11/13/22) Labs on day of discharge: Laboratory Results - last 24 hr 01/11/23 01/12/23 01/12/23 14:06 05:52 13:30 Creatinine 1.16 Estim Creat Clear Calc 64.3 Estimated GFR > 60 Vancomycin Trough 13.6 COVID-19 (AC) Negative COVID-19 Clin Com See Note Imaging Chest x-ray: Radiologist's impression: ITS Impressions Chest X-Ray 01/08/23 13:46 IMPRESSION: Unremarkable examination. Chest CTA 01/08/23 15:49 IMPRESSION: 1. No central or subsegmental pulmonary emboli. Evaluation for subsegmental pulmonary emboli is limited secondary to extensive respiratory motion artifact. 2. Enlarged heart. Three-vessel coronary artery disease. 3. Calcified thyroid nodules, not well evaluated on CT. 4. Mild bronchial wall thickening suggesting small airways disease. No dense consolidation. VTE: negative Discharge Plan Discharge Anticipated Discharge Date/Time: 01/12/23 13:44 Patient Disposition: [facility] Discharge Diagnosis: Sepsis secondary to UTI, toxic metabolic encephalopathy multifactorial, orthostasis, E coli bacteremia. [facility] - 1 Week Tim Seaman MD [Primary Care Provider] - 1 Week Discharge Medications: New diazepam 2 mg Tablet 3 mg PO TID Qty: 90 0RF amlodipine 2.5 mg tablet 2.5 mg PO DAILY Qty: 30 0RF cefuroxime axetil 500 mg tablet 500 mg PO BID Qty: 28 0RF Continued furosemide 40 mg Tablet 40 mg PO DAILY Qty: 30 0RF Protocol: Hold for SBP< HOLD for SBP < : 90 polyethylene glycol 3350 [Miralax] 17 gram powder in packet 17 g PO DAILY Qty: 30 0RF atorvastatin 40 mg tablet 40 mg PO DAILY finasteride 5 mg tablet 5 mg PO DAILY losartan 100 mg tablet 100 mg PO DAILY tamsulosin 0.4 mg capsule 0.4 mg PO BEDTIME paroxetine HCl 10 mg Tablet 10 mg PO DAILY gabapentin 100 mg Capsule 200 mg PO BID potassium chloride 10 mEq Tablet,Er Particles/Crystals 10 meq PO DAILY cholecalciferol (vitamin D3) 50 mcg (2,000 unit) Tablet 50 mcg PO DAILY sennosides-docusate sodium [Senna Plus] 8.6-50 mg tablet 2 tab PO BEDTIME omeprazole 20 mg Capsule,Delayed Release(Dr/Ec) 20 mg PO DAILY naproxen [Naprosyn] 500 mg Tablet 500 mg PO Q12H PRN (Reason: Pain) Probiotic 1 cap PO BID aspirin 81 mg Tablet,Delayed Release (Dr/Ec) 81 mg PO DAILY Qty: 30 0RF acetaminophen 325 mg Tablet 650 mg PO Q4H PRN (Reason: Pain) Artificial Tears (cmc) 1 % Drops 1 drp OPHTHALMIC (EYE) DAILY PRN (Reason: Dry Eyes) famotidine 20 mg tablet 20 mg PO DAILY Changed amitriptyline 25 mg tablet 12.5 mg PO BEDTIME Qty: 30 0RF Discontinued diazepam 5 mg Tablet 5 mg PO TID Discharge Orders: Discharge Order (Routine); Ordered 01/12/23 Ordered By: Marlee Dodd Diet: Advance to usual diet Activity on Discharge: As tolerated Stand Alone Forms: Patient Portal Discharge page Care Plan Goals: Patient was admitted for possible syncope, also found to have the toxic metabolic encephalopathy and sepsis secondary to UTI, Patient was on multiple psych medications: Patient was started on IV antibiotics, psych medication amitriptyline and Valium was adjusted, blood cultures sent: With above supportive care patient toxic metabolic encephalopathy seems to be improved, blood culture grew E coli sensitive to ceftriaxone: Patient was switched to p.o. antibiotics upon discharge, psych medications adjusted as per psych recommendations. patient initial syncope likely related to orthostasis(which if possible related to multiple psych medications and also blood pressure medications might have contributed to lesser extent.): Patient was given IV fluids, and psych medications are adjusted as above, also blood pressure medications were also put on hold initially- with supportive care patient blood pressure improved, discussed with the psychiatry-recommended to continue current adjusted medication doses for amitriptyline and Valium. In addition patient was started back on blood pressure medication losartan and amlodipine added patient is currently tolerating, no orthostasis no new symptoms. Above management discussed the patient in detail length he understand and in agreement with the above plan, time spent 50 minute. Health Concerns: As above. Plan of Treatment: As above. Assessment: As above. Patient Instructions: Urinary Tract Infection in Children (DC), Sepsis (GEN), Encephalopathy (DC)
[2023-01-12 15:35] VITALS: BP 158/82; PULSE 83; RESP 18; TEMP 36.2; O2SAT 93
--- NOTE | 2023-01-12 16:05 | MHC.CM.PN ---
IMM 01/12/23 Patient is discharged today. He will return to [facility] for LTC. BLS booked 4:30pm transport. Negative covid test result and al dc info sent to facility.
== END 2023-01-12 18:05 | disposition skilled nursing facility (03) | DRG 698 ==
LOC: HO.ED 17:23 → HO.EDOVER 18:20 → HO.S3 18:51
PROVIDERS: Admitting Provider Physician Assistant; Emergency Provider Emergency Medicine; PCP Internal Medicine; Visit Provider Internal Medicine
DX: T83.511A Infection and inflammatory reaction due to indwelling urethral catheter, initial encounter (principal); A41.9 Sepsis, unspecified organism; G92.8 Other toxic encephalopathy; I50.32 Chronic diastolic (congestive) heart failure; J96.11 Chronic respiratory failure with hypoxia; F33.9 Major depressive disorder, recurrent, unspecified; N40.1 Benign prostatic hyperplasia with lower urinary tract symptoms; R33.8 Other retention of urine; I95.2 Hypotension due to drugs; T43.205A Adverse effect of unspecified antidepressants, initial encounter; B96.20 Unspecified Escherichia coli [E. coli] as the cause of diseases classified elsewhere; J44.9 Chronic obstructive pulmonary disease, unspecified; Z99.81 Dependence on supplemental oxygen; I11.0 Hypertensive heart disease with heart failure; N39.0 Urinary tract infection, site not specified; Z20.822 Contact with and (suspected) exposure to COVID-19; Z79.82 Long term (current) use of aspirin; Z79.899 Other long term (current) drug therapy
CPT/HCPCS: 36415; 71045; 71275; 80048; 80076; 80202; 81001; 82565; 82803; 83605; 83735; 83880; 84484; 85025; 85379; 85610; 87040; 87077; 87086; 87147; 87186; 87205; 87635; 93005; 99285; C1758; J0696; J1650; J3370; Q9967

== ENCOUNTER → 2023-01-24 14:08 | Outpatient (BNVA) | payer MEDICARE, OTHER, SELFPAY | PROVIDERS: PCP Internal Medicine; Visit Provider Urology | DX: N39.0 Urinary tract infection, site not specified (principal); N35.919 Unspecified urethral stricture, male, unspecified site; R33.9 Retention of urine, unspecified; N17.9 Acute kidney failure, unspecified; R53.1 Weakness; Z96.0 Presence of urogenital implants; Z79.899 Other long term (current) drug therapy | CPT/HCPCS: Q3014 ==

== ENCOUNTER 2023-02-26 10:43 | Inpatient (IN) | payer MEDICARE, OTHER, SELFPAY ==
[2023-02-26] VITALS (9 sets, daily range): BP systolic 101–127; BP diastolic 48–68; PULSE 80–136; RESP 16–24; TEMP 36.2–37.8; O2SAT 94–98; BMI 35.6
--- NOTE | ~2023-02-26 | CT_ITS ---
EXAMINATION: CT ANGIOGRAM OF THE CHEST WITH AND WITHOUT CONTRAST (CT PULMONARY ANGIOGRAM FOR PE) CLINICAL INFORMATION: Reason for Exam hypoxia COMPARISON: None available. TECHNIQUE: Prior to contrast administration, noncontrast localization images were obtained. Subsequently, multidetector volumetric imaging was performed from the thoracic inlet to below the diaphragms following the administration of 80 mL Omnipaque 350 intravenous contrast. No contrast reaction reported Sagittal, coronal, and MIP oblique sagittal reformatted images were obtained on the CT workstation, uploaded to PACS, and reviewed. This CT examination was performed using dose optimization techniques as appropriate, variously including the following: *Automated exposure control *Adjustment of mA and/or kV according to patient size (this includes techniques or standardized protocols for targeted exams where dose is matched to indication/reason for exam; i.e. extremities or head) *Use of iterative reconstruction technique Total exam dose-length product 347 mGy-cm FINDINGS: QUALITY OF STUDY/CONTRAST BOLUS: Satisfactory. PULMONARY ARTERIES: No pulmonary emboli. THORACIC AORTA: No aneurysm. LUNG: The lungs are well-expanded with bandlike atelectasis right lower lobe and minimal bibasilar compressive atelectasis. PLEURA: There is minimal bilateral posterior pleural thickening but no effusion seen. MEDIASTINUM: The heart size is normal. Trace pericardial effusion seen.. No evidence of septal bowing or right heart strain. The right thyroid lobe is enlarged with multiple calcifications. CORONARY ARTERY CALCIFICATION: Moderate coronary artery calcifications are visualized. CHEST WALL/AXILLA: No axillary or internal mammary lymphadenopathy. OSSEOUS STRUCTURES: No aggressive lytic or sclerotic process seen. Mild ventral spondylosis seen in mid and lower dorsal spine. UPPER ABDOMEN: Visualized liver, spleen, pancreas and gallbladder appears unremarkable. No reflux of contrast into the hepatic veins to suggest elevated right heart pressures. CT/CT angio chest PE protocol IMPRESSION: 1. No evidence of PE. 2. No evidence of aortic dissection or aneurysm. 3. Right lower lobe bandlike atelectasis and minimal bibasilar compressive atelectasis. 4. Trace pericardial effusion. 5. Right thyroid enlargement with calcification. Recommend ultrasound correlation. 6. VTE: negative.
--- NOTE | ~2023-02-26 | XR_ITS ---
EXAMINATION: XR CHEST CLINICAL INFORMATION: Acute dyspnea COMPARISON: Chest 01/08/2023 TECHNIQUE: AP upright portable view of the chest was obtained. 11:30 AM FINDINGS: No significant abnormality is noted involving the heart, lungs, mediastinum, bony thorax or soft tissues. XR/XR chest 1V IMPRESSION: Unremarkable examination.
--- NOTE | ~2023-02-26 | US_ITS ---
EXAMINATION: US RETROPERITONEAL LIMITED (RENAL ONLY) CLINICAL INFORMATION: Rule out obstruction. Acute kidney insufficiency COMPARISON: Ultrasound abdomen limited 11/12/2022. CT abdomen and pelvis 11/12/2022. X-ray abdomen KUB 10/24/2020. TECHNIQUE: Real-time imaging of the kidneys. FINDINGS: RIGHT KIDNEY: 11.3 x 5.3 x 5.0 cm (SAG x AP x TRV). The kidney is normal in size, contour, and echogenicity. Renal cortical thickness is normal. No renal calculi or hydronephrosis. Multiple cysts, largest measuring 4.3 x 3.1 x 2.6 cm in the lower pole. No imaging follow-up recommended. LEFT KIDNEY: 14.0 x 5.2 x 4.2 cm (SAG x AP x TRV). The kidney is normal in size, contour, and echogenicity. Renal cortical thickness is normal. No renal calculi or hydronephrosis. Multiple cysts, largest measuring 3.2 x 2.2 x 2.1 cm in the lower pole. No imaging follow-up recommended. US/US renal BI IMPRESSION: No hydronephrosis..
--- NOTE | 2023-02-26 10:56 | ECG_ITS ---
Test Reason : cp Blood Pressure : / mmHG Vent. Rate : 134 BPM Atrial Rate : 134 BPM P-R Int : 148 ms QRS Dur : 092 ms QT Int : 306 ms P-R-T Axes : 055 008 040 degrees QTc Int : 456 ms Sinus tachycardia Incomplete right bundle branch block Inferior infarct (cited on or before 17-MAY-2018) Possible Anterolateral infarct , age undetermined Abnormal ECG When compared with ECG of 08-JAN-2023 13:19, Cannot rule out anterior infarct Referred By: Gray Soriano Electronically Signed By:Mike Lamas
[2023-02-26 11:19] LABS: Basophils Absolute Auto 0.1 X10*3/uL (0.0-0.2); Basophils Percent Auto 0.3 % (0-2); Eosinophils Absolute Auto 0.1 X10*3/uL (0.0-0.4); Eosinophils Percent Auto 0.7 % (0-4); Hematocrit 38.7 % (42.0-52.0); Hemoglobin 12.3 g/dl (14.0-18.0); Imm Gran Abs Auto 0.16 X10*3/uL (0.00-0.03); Imm Gran Pct Auto 0.8 % (0.0-0.4); Lymphocytes Absolute Auto 0.6 X10*3/uL (1.2-4.9); Lymphocytes Percent Auto 3.3 % (20-40); MANUAL DIFF FLAG SCAN; Mean Corpuscular HGB Conc 31.8 g/dl (31.0-36.0); Mean Corpuscular Hemoglobin 25.3 pg (27.0-33.0); Mean Corpuscular Volume 79.5 fL (80.0-98.0); Mean Platelet Volume 9.2 fL (9.4-12.4); Monocytes Absolute Auto 0.6 X10*3/uL (0.1-1.2); Monocytes Percent Auto 3.4 % (2-11); Neutrophils Absolute Auto 17.3 x10*3/uL (2.0-8.3); Neutrophils Percent Auto 91.5 % (45-73); Platelet Count 498 X10*3/uL (160-400); Red Blood Count 4.87 X10*6/uL (4.60-5.80); Red Cell Distribution Width 14.5 % (11.0-16.0); SCAN SMEAR FLAG 1; White Blood Count 18.9 X10*3/uL (4.8-10.8)
[2023-02-26 11:27] LABS: Partial Thromboplastin Time 30.8 SEC (26.0-36.4)
[2023-02-26 11:32] LABS: Lactic Acid 1.6 mmol/L (0.5-2.0)
--- NOTE | 2023-02-26 11:36 | PHA.MEDREC ---
Pharmacy Consult ? Medication Reconciliation Pharmacy has completed the medication reconciliation. [facility]
[2023-02-26 11:38] LABS: SLIDE REVIEW VERIFIED
[2023-02-26 11:39] LABS: Alanine Aminotransferase 43 U/L (0-40); Albumin Level 3.7 g/dL (3.5-5.0); Alkaline Phosphatase 150 U/L (39-117); Anion Gap 17 (12-20); Aspartate Amino Transferase 25 U/L (5-37); Bilirubin Total 0.6 mg/dL (0.0-1.0); Blood Urea Nitrogen 23 mg/dL (9-16); Calcium 10.1 mg/dL (8.4-10.2); Carbon Dioxide 21 mmol/L (22-29); Chloride 104 mmol/L (96-108); Creatinine Clr Calc Pharmacy 50.1; Estimated Glomerular Filt Rate 46; Glucose Random 208 mg/dL (60-115); Potassium 4.8 mmol/L (3.3-5.1); Sodium 137 mmol/L (135-145); Total Protein 7.7 g/dL (6.5-8.0)
[2023-02-26 11:40] LABS: B Type Natriuretic Peptide 48 pg/mL (<100)
[2023-02-26 11:44] LABS: Troponin-I High Sensitivity < 2.7 ng/L (<3.5-35.0)
[2023-02-26 11:57] LABS: TSH reflex Free T4 1.01 uIU/mL (0.32-4.0)
[2023-02-26 12:36] LABS: COVID-19 Test Negative (Negative); IDNOW Serial# 08D9AD1C; IDNOW Serial# BCCEAD1C; Influenza A Negative (Negative); Influenza B2 Negative (Negative)
--- NOTE | 2023-02-26 15:06 | ED_ITS ---
HPI - General Adult General Chief complaint: Dyspnea Stated complaint: low o2sat @76% on RA no SOB from SNF Time Seen by Provider: 02/26/23 10:56 Source: patient and EMS Mode of arrival: EMS Limitations: no limitations History of Present Illness HPI narrative: 72-year-old male presents with hypoxia. Patient is generally feeling unwell. Does describe some shortness of breath. Denies any fevers or chills. No nausea vomiting. No chest pain. Patient is not normally on oxygen. His O2 oxygen saturation was noted to be 75% on room air then increase in the 80s on 2 L nasal cannula. Patient was hemodynamically stable upon transport. He had no wheezing, cough or crackles. Denies any chest pain. There is no clear relieving or exacerbating features. Denies any orthopnea, PND, lower extremity edema. Related Data Home Medications Medication Instructions Recorded Confirmed cholecalciferol (vitamin D3) 50 50 mcg PO DAILY 02/17/22 02/26/23 mcg (2,000 unit) tablet gabapentin 100 mg capsule 200 mg PO BID 02/17/22 02/26/23 paroxetine HCl 10 mg tablet 10 mg PO DAILY 02/17/22 02/26/23 potassium chloride 10 mEq 10 meq PO DAILY 02/17/22 02/26/23 tablet,extended release(part/cryst) sennosides 8.6 mg-docusate sodium 2 tab PO BEDTIME 02/17/22 02/26/23 50 mg tablet (Senna Plus) Probiotic 1 cap PO BID 11/13/22 02/26/23 naproxen 500 mg tablet (Naprosyn) 500 mg PO Q12H PRN Pain 11/13/22 02/26/23 omeprazole 20 mg capsule,delayed 20 mg PO DAILY 11/13/22 02/26/23 release atorvastatin 40 mg tablet 40 mg PO DAILY 12/06/22 02/26/23 finasteride 5 mg tablet 5 mg PO DAILY 12/06/22 02/26/23 losartan 100 mg tablet 100 mg PO DAILY 12/06/22 02/26/23 tamsulosin 0.4 mg capsule 0.4 mg PO BEDTIME 12/06/22 02/26/23 acetaminophen 325 mg tablet 650 mg PO Q4H PRN Fever Or Pain 01/08/23 02/26/23 carboxymethylcellulose sodium 1 % 1 drp ophthalmic (eye) DAILY PRN 01/08/23 02/26/23 eye drops (Artificial Tears Dry Eyes (carboxymethylcellulose)) famotidine 20 mg tablet 20 mg PO DAILY@0630 01/08/23 02/26/23 bisacodyl 10 mg rectal suppository 10 mg OH DAILY PRN Constipation 02/26/23 02/26/23 diazepam 5 mg tablet 2.5 mg PO BID@0900,1500 02/26/23 02/26/23 diazepam 5 mg tablet 5 mg PO BEDTIME 02/26/23 02/26/23 magnesium citrate 150 ml PO DAILY PRN Constipation 02/26/23 02/26/23 magnesium hydroxide 400 mg/5 mL 30 ml PO DAILY PRN Constipation 02/26/23 02/26/23 oral suspension (Milk of Magnesia) sodium phosphates 19 gram-7 118 ml OH DAILY PRN Constipation 02/26/23 02/26/23 gram/118 mL enema (Fleet Enema) Previous Rx's Medication Instructions Recorded furosemide 40 mg tablet 40 mg PO DAILY #30 tabs 10/31/20 polyethylene glycol 3350 17 gram 17 g PO DAILY #30 ea 10/31/20 oral powder packet (Miralax) aspirin 81 mg tablet,delayed 81 mg PO DAILY #30 tabs 11/18/22 release amitriptyline 25 mg tablet 12.5 mg PO BEDTIME #30 tabs 01/12/23 amlodipine 2.5 mg tablet 2.5 mg PO DAILY #30 tabs 01/12/23 Allergies Allergy/AdvReac Type Severity Reaction Status Date / Time No Known Allergies Allergy Verified 01/24/23 14:13 [No Known Allergies*] Review of Systems Review of Systems: CONSTITUTIONAL: Denies weight loss, fever and chills. HEENT: Denies changes in vision and hearing. RESPIRATORY: Denies SOB and cough. CV: Denies palpitations no CP. GI: Denies abdominal pain, nausea, vomiting and diarrhea. : Denies dysuria and urinary frequency. MSK: Denies myalgia and joint pain. SKIN: Denies rash and pruritus. NEUROLOGICAL: Denies headache and syncope. PSYCHIATRIC: Denies recent changes in mood. Denies anxiety and depression. All other ROS are negative unless in HPI PMFSH Past Medical History Medical History Abdomen enlarged Acute on chronic heart failure with preserved ejection fraction (HFpEF) Acute on chronic respiratory failure with hypoxia and hypercapnia Acute renal failure Acute respiratory failure with hypoxia Acute upper gastrointestinal bleeding Afib STIVEN (acute kidney injury) Altered mental status Aspiration pneumonitis Atypical pneumonia Borderline diabetic CHF exacerbation Congestive heart failure Hypertension Hyperthyroidism Hypoxia Ileus Multifocal pneumonia Myocardial infarct Partial obstruction of small intestine Pneumonia Pulmonary aspiration Recurrent major depression Sepsis associated hypotension Toxic metabolic encephalopathy Urethral stricture in male Urinary catheter in place Urinary tract infection Surgical History History of shoulder surgery History of surgery of head Family History Family History Mother No problems noted. Father Heart disease Social History Social History Household Members: None Housing: Assisted Living Facility Do you presently have visiting nurse or other home services: Yes Alcohol intake: former Year quit: 1989 Patient Tobacco Use Status: Never used Tobacco Substance Use Type: Unknown Advance Directives: Yes Advance Directives on File: Yes Advance Directives Date on File: 11/01/20 service: No Current occupational status: retired Physical Exam ED Vital Signs: Vital Signs - 24 hr 02/26/23 10:56 Temperature 98.0 F Pulse Rate 136 H Respiratory Rate 20 Blood Pressure 127/56 L Pulse Oximetry 94 Oxygen Delivery Method Nasal Cannula BMI result Body Mass Index 35.6 GEN: Well developed, no acute distress, alert, oriented HEENT: Normocephalic, atraumatic, normal external ears, nose appears normal, no oropharyngeal edema or exudates Eyes: Normal to appearance Neck: Supple, no lymphadenopathy Respiratory: Talks in complete sentences, no respiratory distress, clear to auscultation bilaterally Cardiovascular: Regular rate and rhythm, no murmurs rubs or gallops Abdomen: Soft, nontender, nondistended, no guarding, no rebound Back: No CVA tenderness Extremities: No clubbing cyanosis or edema Neurologic: No focal neurologic deficits, cranial nerves 2-12 intact, strength is 5/5 bilaterally Skin: No rash Course Course Course Narrative: Patient presents with hypoxia. Etiology is unclear at this time. Chest x-ray shows no acute cardiopulmonary disease. ProBNP was normal. There is no evidenc e CHF, pneumonia. Although I doubt pulmonary embolus, this will need to be rule out given the degree of hypoxia. He also has a significantly elevated white blood cell count, left shift. Lactic acid is normal. He is tachycardic. Will go ahead and treat with antibiotics in the meantime. Will provide patient with IV fluids. Will order a CT pulmonary embolism protocol. Reevaluation(s) Reevaluation #1: Patient will be placed on Lovenox given the hypoxia with unclear etiology at this point. Hospitalist is aware of admission. I discussed all results with the patient. He is agreeable to hospitalization, understands the reason for intravenous antibiotics and Lovenox Time: 15:48 Medical Decision Making Medical Decision Making [facility] Narrative: 72-year-old male presents with generally feeling unwell as well as hypoxia. This was acute in onset. Started today. Examination was unremarkable with exception of tachycardia. Is no lower extremity edema. Differential diagnosis includes CHF, pneumonia, pulmonary embolus, bronchitis, viral syndrome. My plan will start with a chest x-ray, routine laboratory analysis. If this workup is unremarkable, would consider CT angiogram to rule out pulmonary embolus is a possible etiology especially given sinus tachycardia and hypoxia. I will provide the patient with a dose of Lovenox in the meantime to protect him. Patient will need to be admitted specially given the hypoxia. Differential Diagnosis Differential Diagnoses: The differential diagnosis associated with the presentation includes (See above) Admission/Observation Consideration of admission/observation: Escalation of care including admission/observation considered Consult Healthcare Provider Management of the patient was discussed with: Hospitalist Lab Data [facility] Lab Attestation statement: I reviewed the patient's lab results. 02/26/23 11:10 02/26/23 11:10 Labs: Lab Results 02/26/23 02/26/23 02/26/23 Range/Units 11:10 11:10 11:10 WBC 18.9 H (4.8-10.8) X10*3/uL RBC 4.87 (4.60-5.80) X10*6/uL Hgb 12.3 L (14.0-18.0) g/dl Hct 38.7 L (42.0-52.0) % MCV 79.5 L (80.0-98.0) fL MCH 25.3 L (27.0-33.0) pg MCHC 31.8 (31.0-36.0) g/dl RDW 14.5 (11.0-16.0) % Plt Count 498 H D (160-400) X10*3/uL MPV 9.2 L (9.4-12.4) fL Immature Gran % (Auto) 0.8 H (0.0-0.4) % Neut % (Auto) 91.5 H (45-73) % Lymph % (Auto) 3.3 L (20-40) % Greenlee % (Auto) 3.4 (2-11) % Eos % (Auto) 0.7 (0-4) % Baso % (Auto) 0.3 (0-2) % Lymph # (Auto) 0.6 L (1.2-4.9) X10*3/uL Greenlee # (Auto) 0.6 (0.1-1.2) X10*3/uL Eos # (Auto) 0.1 (0.0-0.4) X10*3/uL Baso # (Auto) 0.1 (0.0-0.2) X10*3/uL Abs Immat Gran (auto) 0.16 H (0.00-0.03) X10*3/uL Absolute Neuts (auto) 17.3 H (2.0-8.3) x10*3/uL Absolute Nucleated RBC 0.000 (0.0-0.012) X10*3/uL Nucleated RBC % (auto) 0.0 (0.0-0.2) /100WBC Smear Tech's Comments VERIFIED APTT (26.0-36.4) SEC Sodium 137 (135-145) mmol/L Potassium 4.8 (3.3-5.1) mmol/L Chloride 104 (96-108) mmol/L Carbon Dioxide 21 L (22-29) mmol/L Anion Gap 17 (12-20) BUN 23 H (9-16) mg/dL Creatinine 1.50 H (0.5-1.4) mg/dL Estim Creat Clear Calc 50.1 Estimated GFR 46 Random Glucose 208 H (60-115) mg/dL Lactic Acid (0.5-2.0) mmol/L Calcium 10.1 D (8.4-10.2) mg/dL Total Bilirubin 0.6 (0.0-1.0) mg/dL AST 25 (5-37) U/L ALT 43 H (0-40) U/L Alkaline Phosphatase 150 H (39-117) U/L Troponin I High Sens < 2.7 D (<3.5-35.0) ng/L B-Natriuretic Peptide (<100) pg/mL Total Protein 7.7 (6.5-8.0) g/dL Albumin 3.7 (3.5-5.0) g/dL TSH (0.32-4.0) uIU/mL Urine Color Urine Appearance Urine pH (5.0-9.0) Ur Specific [place]ell (1.005-1.025) Urine Protein (Neg-Trace) mg/dL Urine Glucose (UA) (Negative) mg/dL Urine Ketones (Negative) mg/dL Urine Blood (Negative) Urine Nitrite (Negative) Ur Leukocyte Esterase (Negative) COVID-19 (AC) (Negative) COVID-19 Clin Com Influenza Type A (CASSIDY) (Negative) Influenza Type B (CASSIDY) (Negative) Influenza A & B Note 02/26/23 02/26/23 02/26/23 Range/Units 11:10 11:10 11:11 WBC (4.8-10.8) X10*3/uL RBC (4.60-5.80) X10*6/uL Hgb (14.0-18.0) g/dl Hct (42.0-52.0) % MCV (80.0-98.0) fL MCH (27.0-33.0) pg MCHC (31.0-36.0) g/dl RDW (11.0-16.0) % Plt Count (160-400) X10*3/uL MPV (9.4-12.4) fL Immature Gran % (Auto) (0.0-0.4) % Neut % (Auto) (45-73) % Lymph % (Auto) (20-40) % Greenlee % (Auto) (2-11) % Eos % (Auto) (0-4) % Baso % (Auto) (0-2) % Lymph # (Auto) (1.2-4.9) X10*3/uL Greenlee # (Auto) (0.1-1.2) X10*3/uL Eos # (Auto) (0.0-0.4) X10*3/uL Baso # (Auto) (0.0-0.2) X10*3/uL Abs Immat Gran (auto) (0.00-0.03) X10*3/uL Absolute Neuts (auto) (2.0-8.3) x10*3/uL Absolute Nucleated RBC (0.0-0.012) X10*3/uL Nucleated RBC % (auto) (0.0-0.2) /100WBC Smear Tech's Comments APTT 30.8 (26.0-36.4) SEC Sodium (135-145) mmol/L Potassium (3.3-5.1) mmol/L Chloride (96-108) mmol/L Carbon Dioxide (22-29) mmol/L Anion Gap (12-20) BUN (9-16) mg/dL Creatinine (0.5-1.4) mg/dL Estim Creat Clear Calc Estimated GFR Random Glucose (60-115) mg/dL Lactic Acid 1.6 (0.5-2.0) mmol/L Calcium (8.4-10.2) mg/dL Total Bilirubin (0.0-1.0) mg/dL AST (5-37) U/L ALT (0-40) U/L Alkaline Phosphatase (39-117) U/L Troponin I High Sens (<3.5-35.0) ng/L B-Natriuretic Peptide (<100) pg/mL Total Protein (6.5-8.0) g/dL Albumin (3.5-5.0) g/dL TSH 1.01 (0.32-4.0) uIU/mL Urine Color Urine Appearance Urine pH (5.0-9.0) Ur Specific Lowell (1.005-1.025) Urine Protein (Neg-Trace) mg/dL Urine Glucose (UA) (Negative) mg/dL Urine Ketones (Negative) mg/dL Urine Blood (Negative) Urine Nitrite (Negative) Ur Leukocyte Esterase (Negative) COVID-19 (AC) (Negative) COVID-19 Clin Com Influenza Type A (CASSIDY) (Negative) Influenza Type B (CASSIDY) (Negative) Influenza A & B Note 02/26/23 02/26/23 02/26/23 Range/Units 11:11 11:12 11:12 WBC (4.8-10.8) X10*3/uL RBC (4.60-5.80) X10*6/uL Hgb (14.0-18.0) g/dl Hct (42.0-52.0) % MCV (80.0-98.0) fL MCH (27.0-33.0) pg MCHC (31.0-36.0) g/dl RDW (11.0-16.0) % Plt Count (160-400) X10*3/uL MPV (9.4-12.4) fL Immature Gran % (Auto) (0.0-0.4) % Neut % (Auto) (45-73) % Lymph % (Auto) (20-40) % Greenlee % (Auto) (2-11) % Eos % (Auto) (0-4) % Baso % (Auto) (0-2) % Lymph # (Auto) (1.2-4.9) X10*3/uL Greenlee # (Auto) (0.1-1.2) X10*3/uL Eos # (Auto) (0.0-0.4) X10*3/uL Baso # (Auto) (0.0-0.2) X10*3/uL Abs Immat Gran (auto) (0.00-0.03) X10*3/uL Absolute Neuts (auto) (2.0-8.3) x10*3/uL Absolute Nucleated RBC (0.0-0.012) X10*3/uL Nucleated RBC % (auto) (0.0-0.2) /100WBC Smear Tech's Comments APTT (26.0-36.4) SEC Sodium (135-145) mmol/L Potassium (3.3-5.1) mmol/L Chloride (96-108) mmol/L Carbon Dioxide (22-29) mmol/L Anion Gap (12-20) BUN (9-16) mg/dL Creatinine (0.5-1.4) mg/dL Estim Creat Clear Calc Estimated GFR Random Glucose (60-115) mg/dL Lactic Acid (0.5-2.0) mmol/L Calcium (8.4-10.2) mg/dL Total Bilirubin (0.0-1.0) mg/dL AST (5-37) U/L ALT (0-40) U/L Alkaline Phosphatase (39-117) U/L Troponin I High Sens (<3.5-35.0) ng/L B-Natriuretic Peptide 48 (<100) pg/mL Total Protein (6.5-8.0) g/dL Albumin (3.5-5.0) g/dL TSH (0.32-4.0) uIU/mL Urine Color Urine Appearance Urine pH (5.0-9.0) Ur Specific [place]ell (1.005-1.025) Urine Protein (Neg-Trace) mg/dL Urine Glucose (UA) (Negative) mg/dL Urine Ketones (Negative) mg/dL Urine Blood (Negative) Urine Nitrite (Negative) Ur Leukocyte Esterase (Negative) COVID-19 (AC) Negative (Negative) COVID-19 Clin Com See Note Influenza Type A (CASSIDY) Negative (Negative) Influenza Type B (CASSIDY) Negative (Negative) Influenza A & B Note See Note 02/26/23 Range/Units 15:07 WBC (4.8-10.8) X10*3/uL RBC (4.60-5.80) X10*6/uL Hgb (14.0-18.0) g/dl Hct (42.0-52.0) % MCV (80.0-98.0) fL MCH (27.0-33.0) pg MCHC (31.0-36.0) g/dl RDW (11.0-16.0) % Plt Count (160-400) X10*3/uL MPV (9.4-12.4) fL Immature Gran % (Auto) (0.0-0.4) % Neut % (Auto) (45-73) % Lymph % (Auto) (20-40) % Greenlee % (Auto) (2-11) % Eos % (Auto) (0-4) % Baso % (Auto) (0-2) % Lymph # (Auto) (1.2-4.9) X10*3/uL Greenlee # (Auto) (0.1-1.2) X10*3/uL Eos # (Auto) (0.0-0.4) X10*3/uL Baso # (Auto) (0.0-0.2) X10*3/uL Abs Immat Gran (auto) (0.00-0.03) X10*3/uL Absolute Neuts (auto) (2.0-8.3) x10*3/uL Absolute Nucleated RBC (0.0-0.012) X10*3/uL Nucleated RBC % (auto) (0.0-0.2) /100WBC Smear Tech's Comments APTT (26.0-36.4) SEC Sodium (135-145) mmol/L Potassium (3.3-5.1) mmol/L Chloride (96-108) mmol/L Carbon Dioxide (22-29) mmol/L Anion Gap (12-20) BUN (9-16) mg/dL Creatinine (0.5-1.4) mg/dL Estim Creat Clear Calc Estimated GFR Random Glucose (60-115) mg/dL Lactic Acid (0.5-2.0) mmol/L Calcium (8.4-10.2) mg/dL Total Bilirubin (0.0-1.0) mg/dL AST (5-37) U/L ALT (0-40) U/L Alkaline Phosphatase (39-117) U/L Troponin I High Sens (<3.5-35.0) ng/L B-Natriuretic Peptide (<100) pg/mL Total Protein (6.5-8.0) g/dL Albumin (3.5-5.0) g/dL TSH (0.32-4.0) uIU/mL Urine Color Yellow Urine Appearance Cloudy Urine pH 5.5 (5.0-9.0) Ur Specific Lowell 1.015 (1.005-1.025) Urine Protein 30 (1+) H (Neg-Trace) mg/dL Urine Glucose (UA) Negative (Negative) mg/dL Urine Ketones Trace (Negative) mg/dL Urine Blood Moderate (2+) H (Negative) Urine Nitrite Positive H (Negative) Ur Leukocyte Esterase Large (3+) H (Negative) COVID-19 (AC) (Negative) COVID-19 Clin Com Influenza Type A (CASSIDY) (Negative) Influenza Type B (CASSIDY) (Negative) Influenza A & B Note Independent Interpretation I performed an independent interpretation of an: EKG (Sinus tachycardia heart 134, rate related changes, 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 History obtained from or confirmed by: EMS Tests considered The following testing was considered but not selected: CT angio of the chest Prescription Management I considered prescription management with: Antibiotic Chronic Conditions Patient?s care impacted by: Hypertension Critical Care Time Critical Care Time Critical Care Time: Yes Total Critical Care Time: 45 Attestation: Approximately 45 minutes of critical care time for the workup of hypoxemia. Critical care time included bedside assessment, reassessment, interpretation and medical data, documentation, consultation with other providers of potentially life-threatening or significant morbidity associated condition. Discharge Plan Discharge Clinical Impression: Hypoxia, Acute kidney injury superimposed on CKD, Leukocytosis Patient Disposition: Admitted As Inpatient
[2023-02-26 15:17] LABS: Appearance Urine Cloudy; Color Urine Yellow; Glucose Urine UA Negative (Negative); Leukocyte Esterase Urine Large (3+) (Negative); Nitrite Urine Positive (Negative); PH 5.5 (5.0-9.0); Specific Gravity - Urine 1.015 (1.005-1.025); UMIC TRIGGER UACC YES; Urine Blood Moderate (2+) (Negative); Urine Ketones Trace mg/dL (Negative); Urine Protein 30 (1+) mg/dL (Neg-Trace)
[2023-02-26 15:57] LABS: Bacteria Urine 4+ (None Seen); UACC Culture Trigger YES; WBC Urine 21-50 /HPF (0-5)
[2023-02-26] MEDS: 0.9 % Sodium Chloride 1,000 ML 999 ML IV (16:00)
[2023-02-26] MEDS: iohexoL 350 MG/ML 100 ML INFUS..BTL IV (16:10)
[2023-02-26] MEDS: Piperacillin Sodium/Tazobactam 3.375 GM in 0.9 % Sodium Chloride 50 ML IV (16:27)
[2023-02-26] MEDS: Enoxaparin Sodium 100 MG/ML SYRINGE SUBCUT (16:28)
--- NOTE | 2023-02-26 16:50 | PM.EVENT ---
Event Note Date of Service: 02/26/23 Event Note: The patient was seen and evaluated with PHOENIX Lerma. I agree with her note, assessment and plan with the following. 72 years old male with PMH of CKD, COPD, CHF who presents with episode of hypoxia and tachypnea, tachycardia . denies any chest pain, cough or fever but only report chills. Pending CTA Pending REspiratory panel Received Abx and Lovenox will wait results and decide on the course of treatment Rest of evaluations by PA note. Time Spent With Patient Time: Total time managing care of this patient today ____ minutes.
[2023-02-26] MEDS: vancomycin/NS 2,000 MG/500 ML PLAST..BAG 250 MG IV (17:25)
--- NOTE | 2023-02-26 17:36 | PM.IMHP ---
History of Present Illness Date of Service: 02/26/23 Attending physician on admission: Dawna Núñez Chief Complaint: lightheaded, chills 72-year-old male with past medical history of chronic heart failure with Preserved ejection fraction,? COPD not O2 dependent, type 2 diabetes, urinary retention with chronic Oseguera in place, depression, history of AFib, HTN, hypothyroidism, CAD, history of dysphagia, history UTI with e coli bacteremia presented to the ED from SNF where he resides for evaluation of lightheadedness, chills, and perioral cyanosis reported by nursing staff that came on this morning. He does describe some shortness of breath as well. He is noted to be hypoxic at 75% on room air with increased the 80s on 2 L nasal cannula. He also reported abdominal distension earlier today and has chronic Oseguera in place. Denies any fevers, dysuria, hematuria, nausea, vomiting, diarrhea, constipation, palpitations, chest pain, cough. He denies any recent illness. On arrival, patient afebrile though has slightly elevated temp of 100.1 degrees rectally on admission, tachycardic on arrival to 136, continued on 4L supplemental O2 on arrival. There is a leukocytosis of 18.9. Creatinine 1.50, baseline 1.16. BUN 23, electrolyte levels normal. Troponin below detectable limits. BNP 48. Urinalysis with 3+ leukocytes, positive nitrites, 2+ blood, positive urinary sediment, 4+ bacteria. Negative for COVID-19, influenza. CXR negative for any acute cardiopulmonary abnormality. CTA chest negative for any PE, dissection, aneurysm but does show right lower lobe bandlike atelectasis and minimal bibasilar compressive atelectasis with trace pericardial effusion. There is also incidentally noted right thyroid enlargement with calcification. In the ED, patient treated empirically with 100 mg therapeutic Lovenox while awaiting results of CTA, 1 L IV NS, IV Zosyn, IV vanco. Review of Systems Review of Systems: General: No fevers, malaise, unintentional weight loss. +chills HEENT: No blurred vision, diplopia. No sore throat, nasal congestion, rhinorrhea, sinus pain, ear pain Cardiovascular: No chest pain, palpitations, or leg edema Respiratory: +sob. No wheezing, cough GI: No abdominal pain, nausea, vomiting, diarrhea, constipation, melena, hematochezia : No dysuria, hematuria, increased urinary frequency, decreased urinary output MSK: No myalgia, back pain Neuro: No headaches, weakness, paresthesias. +lightheadedness Skin: No rashes or lesions ON LICENSE OF [facility] Medical History Abdomen enlarged Acute on chronic heart failure with preserved ejection fraction (HFpEF) Acute on chronic respiratory failure with hypoxia and hypercapnia Acute renal failure Acute respiratory failure with hypoxia Acute upper gastrointestinal bleeding Afib STIVEN (acute kidney injury) Altered mental status Aspiration pneumonitis Atypical pneumonia Borderline diabetic CHF exacerbation Congestive heart failure Hypertension Hyperthyroidism Hypoxia Ileus Multifocal pneumonia Myocardial infarct Partial obstruction of small intestine Pneumonia Pulmonary aspiration Recurrent major depression Sepsis associated hypotension Toxic metabolic encephalopathy Urethral stricture in male Urinary catheter in place Urinary tract infection Family History Mother No problems noted. Father Heart disease Surgical History History of shoulder surgery History of surgery of head Social History Household Members: None Housing: Assisted Living Facility Do you presently have visiting nurse or other home services: Yes Alcohol intake: former Year quit: 1989 Patient Tobacco Use Status: Never used Tobacco Substance Use Type: Unknown Advance Directives: Yes Advance Directives on File: Yes Advance Directives Date on File: 11/01/20 service: No Current occupational status: retired Meds Allergies Allergy/AdvReac Type Severity Reaction Status Date / Time No Known Allergies Allergy Verified 01/24/23 14:13 [No Known Allergies*] Active Medications: Current Medications Acetaminophen (Acetaminophen 325 Mg Tablet) 650 mg PO Q6H PRN PRN Reason: Pain, Mild (Pain Scale 1-3) Docusate Sodium (Docusate Sodium 100 Mg Capsule) 100 mg PO DAILY PRN PRN Reason: Constipation Enoxaparin Sodium (Enoxaparin Sodium 40 Mg/0.4 Ml Syringe) 40 mg SUBCUT Q24H RICA Vancomycin HCl (Vancomycin/Ns) 2,000 mg in 500 mls @ 250 mls/hr IV ONCE ONE Stop: 02/26/23 17:44 Last Admin: 02/26/23 17:25 Dose: 250 mls/hr Ceftriaxone Sodium 1 gm/ (Sodium Chloride) 50 mls @ 100 mls/hr IV Q24H RICA Ondansetron HCl (Ondansetron Hcl 4 Mg/2 Ml Vial) 4 mg IVPUSH Q8H PRN PRN Reason: Nausea and Vomiting Pharmacy Consult (Consult Rx Perform Med Rec) 1 each MISCELLANE ONCE PRN PRN Reason: Consult order Sodium Chloride (0.9 % Sodium Chloride Flush 3 Ml Syringe) 3 ml IVFLUSH QSHIFT [facility] Home Medications Medication Instructions Recorded Confirmed Last Taken Type cholecalciferol (vitamin D3) 50 50 mcg PO DAILY 02/17/22 02/26/23 Unknown History mcg (2,000 unit) tablet gabapentin 100 mg capsule 200 mg PO BID 02/17/22 02/26/23 Unknown History paroxetine HCl 10 mg tablet 10 mg PO DAILY 02/17/22 02/26/23 Unknown History potassium chloride 10 mEq 10 meq PO DAILY 02/17/22 02/26/23 Unknown History tablet,extended release(part/cryst) sennosides 8.6 mg-docusate sodium 2 tab PO BEDTIME 02/17/22 02/26/23 Unknown History 50 mg tablet (Senna Plus) Probiotic 1 cap PO BID 11/13/22 02/26/23 Unknown History naproxen 500 mg tablet (Naprosyn) 500 mg PO Q12H PRN Pain 11/13/22 02/26/23 Unknown History omeprazole 20 mg capsule,delayed 20 mg PO DAILY 11/13/22 02/26/23 Unknown History release atorvastatin 40 mg tablet 40 mg PO DAILY 12/06/22 02/26/23 Unknown History finasteride 5 mg tablet 5 mg PO DAILY 12/06/22 02/26/23 Unknown History losartan 100 mg tablet 100 mg PO DAILY 12/06/22 02/26/23 Unknown History tamsulosin 0.4 mg capsule 0.4 mg PO BEDTIME 12/06/22 02/26/23 Unknown History acetaminophen 325 mg tablet 650 mg PO Q4H PRN Fever Or Pain 01/08/23 02/26/23 Unknown History carboxymethylcellulose sodium 1 % 1 drp ophthalmic (eye) DAILY PRN 01/08/23 02/26/23 Unknown History eye drops (Artificial Tears Dry Eyes (carboxymethylcellulose)) famotidine 20 mg tablet 20 mg PO DAILY@0630 01/08/23 02/26/23 Unknown History bisacodyl 10 mg rectal suppository 10 mg LA DAILY PRN Constipation 02/26/23 02/26/23 Unknown History diazepam 5 mg tablet 2.5 mg PO BID@0900,1500 02/26/23 02/26/23 Unknown History diazepam 5 mg tablet 5 mg PO BEDTIME 02/26/23 02/26/23 Unknown History magnesium citrate 150 ml PO DAILY PRN Constipation 02/26/23 02/26/23 Unknown History magnesium hydroxide 400 mg/5 mL 30 ml PO DAILY PRN Constipation 02/26/23 02/26/23 Unknown History oral suspension (Milk of Magnesia) sodium phosphates 19 gram-7 118 ml LA DAILY PRN Constipation 02/26/23 02/26/23 Unknown History gram/118 mL enema (Fleet Enema) Physical Exam Vital Signs and Narrative: Vital Signs: Last Vital Signs Temp 98.0 F 02/26/23 10:56 Pulse 136 H 02/26/23 10:56 Resp 20 02/26/23 10:56 BP 127/56 L 02/26/23 10:56 Pulse Ox 94 02/26/23 10:56 O2 Del Method Nasal Cannula 02/26/23 10:56 Oxygen Flow Rate 4 02/26/23 10:56 BMI result Body Mass Index 35.6 Constitutional - Awake and Alert, No apparent distress Eyes - PERRLA, EOMI Cardiovascular - S1S2, RRR, No edema Respiratory - Normal lung expansion, Normal respiratory effort, No respiratory distress, CTA bilaterally Gastrointestinal - NT / ND; +BS; No rebound or guarding - No CVA tenderness. Oseguera catheter in place with scant yellow urine draining Extremities - no calf tenderness bilaterally, no swelling Musculoskeletal - Normal inspection, normal ROM Skin - Warm/Dry Neurological - Alert & oriented x3 Psychological - Appropriate affect Results Labs 02/26/23 11:10 02/26/23 11:10 Labs: Laboratory Results - last 24 hr 02/26/23 02/26/23 02/26/23 11:10 11:10 11:10 MCV 79.5 L MCH 25.3 L MCHC 31.8 RDW 14.5 Plt Count 498 H D MPV 9.2 L Immature Gran % (Auto) 0.8 H Neut % (Auto) 91.5 H Lymph % (Auto) 3.3 L [place] % (Auto) 3.4 Eos % (Auto) 0.7 Baso % (Auto) 0.3 Lymph # (Auto) 0.6 L [place] # (Auto) 0.6 Eos # (Auto) 0.1 Baso # (Auto) 0.1 Abs Immat Gran (auto) 0.16 H Absolute Neuts (auto) 17.3 H Absolute Nucleated RBC 0.000 Nucleated RBC % (auto) 0.0 Smear Tech's Comments VERIFIED APTT Anion Gap 17 Estim Creat Clear Calc 50.1 Estimated GFR 46 Random Glucose 208 H Lactic Acid Calcium 10.1 D Total Bilirubin 0.6 AST 25 ALT 43 H Alkaline Phosphatase 150 H Troponin I High Sens < 2.7 D B-Natriuretic Peptide Total Protein 7.7 Albumin 3.7 TSH Urine Color Urine Appearance Urine pH Ur Specific [place] Urine Protein Urine Glucose (UA) Urine Ketones Urine Blood Urine Nitrite Ur Leukocyte Esterase Urine RBC Urine WBC Ur Squamous Epith Cells Urine Bacteria Hyaline Casts COVID-19 (AC) COVID-19 Clin Com Influenza Type A (CASSIDY) Influenza Type B (CASSIDY) Influenza A & B Note 02/26/23 02/26/23 02/26/23 11:10 11:10 11:11 MCV MCH MCHC RDW Plt Count MPV Immature Gran % (Auto) Neut % (Auto) Lymph % (Auto) [place] % (Auto) Eos % (Auto) Baso % (Auto) Lymph # (Auto) [place] # (Auto) Eos # (Auto) Baso # (Auto) Abs Immat Gran (auto) Absolute Neuts (auto) Absolute Nucleated RBC Nucleated RBC % (auto) Smear Tech's Comments APTT 30.8 Anion Gap Estim Creat Clear Calc Estimated GFR Random Glucose Lactic Acid 1.6 Calcium Total Bilirubin AST ALT Alkaline Phosphatase Troponin I High Sens B-Natriuretic Peptide Total Protein Albumin TSH 1.01 Urine Color Urine Appearance Urine pH Ur Specific [place] Urine Protein Urine Glucose (UA) Urine Ketones Urine Blood Urine Nitrite Ur Leukocyte Esterase Urine RBC Urine WBC Ur Squamous Epith Cells Urine Bacteria Hyaline Casts COVID-19 (AC) COVID-19 Clin Com Influenza Type A (CASSIDY) Influenza Type B (CASSIDY) Influenza A & B Note 02/26/23 02/26/23 02/26/23 11:11 11:12 11:12 MCV MCH MCHC RDW Plt Count MPV Immature Gran % (Auto) Neut % (Auto) Lymph % (Auto) [place] % (Auto) Eos % (Auto) Baso % (Auto) Lymph # (Auto) [place] # (Auto) Eos # (Auto) Baso # (Auto) Abs Immat Gran (auto) Absolute Neuts (auto) Absolute Nucleated RBC Nucleated RBC % (auto) Smear Tech's Comments APTT Anion Gap Estim Creat Clear Calc Estimated GFR Random Glucose Lactic Acid Calcium Total Bilirubin AST ALT Alkaline Phosphatase Troponin I High Sens B-Natriuretic Peptide 48 Total Protein Albumin TSH Urine Color Urine Appearance Urine pH Ur Specific [place] Urine Protein Urine Glucose (UA) Urine Ketones Urine Blood Urine Nitrite Ur Leukocyte Esterase Urine RBC Urine WBC Ur Squamous Epith Cells Urine Bacteria Hyaline Casts COVID-19 (AC) Negative COVID-19 Clin Com See Note Influenza Type A (CASSIDY) Negative Influenza Type B (CASSIDY) Negative Influenza A & B Note See Note 02/26/23 15:07 MCV MCH MCHC RDW Plt Count MPV Immature Gran % (Auto) Neut % (Auto) Lymph % (Auto) [place] % (Auto) Eos % (Auto) Baso % (Auto) Lymph # (Auto) [place] # (Auto) Eos # (Auto) Baso # (Auto) Abs Immat Gran (auto) Absolute Neuts (auto) Absolute Nucleated RBC Nucleated RBC % (auto) Smear Tech's Comments APTT Anion Gap Estim Creat Clear Calc Estimated GFR Random Glucose Lactic Acid Calcium Total Bilirubin AST ALT Alkaline Phosphatase Troponin I High Sens B-Natriuretic Peptide Total Protein Albumin TSH Urine Color Yellow Urine Appearance Cloudy Urine pH 5.5 Ur Specific [place] 1.015 Urine Protein 30 (1+) H Urine Glucose (UA) Negative Urine Ketones Trace Urine Blood Moderate (2+) H Urine Nitrite Positive H Ur Leukocyte Esterase Large (3+) H Urine RBC 6-10 H Urine WBC 21-50 H Ur Squamous Epith Cells 3-5 Urine Bacteria 4+ Hyaline Casts 6-10 COVID-19 (AC) COVID-19 Clin Com Influenza Type A (CASSIDY) Influenza Type B (CASSIDY) Influenza A & B Note Imaging Radiologist's Impressions: Impressions Chest X-Ray 02/26/23 11:33 IMPRESSION: Unremarkable examination. Chest CTA 02/26/23 16:08 IMPRESSION: 1. No evidence of PE. 2. No evidence of aortic dissection or aneurysm. 3. Right lower lobe bandlike atelectasis and minimal bibasilar compressive atelectasis. 4. Trace pericardial effusion. 5. Right thyroid enlargement with calcification. Recommend ultrasound correlation. 6. VTE: negative. Assessment and Plan (1) Severe sepsis: Status: Acute (2) Acute kidney injury superimposed on CKD: Status: Acute (3) Hypoxia: Status: Acute (4) Urinary tract infection: Status: Acute Plan 72-year-old male with past medical history of chronic heart failure with Preserved ejection fraction,? COPD not O2 dependent, type 2 diabetes, urinary retention with chronic Oseguera in place, depression, history of AFib, HTN, hypothyroidism, CAD, history of dysphagia, history UTI with e coli bacteremia admitted for UTI with severe sepsis and acute hypoxemic respiratory failure. #Acute oseguera catheter associated UTI with severe sepsis -leukocytosis 18.9, tachycardic to 136. STIVEN. Initial lactic acid 1.6, repeat pending. No hypotension -UA with 3+ leukocytes, positive nitrites, 2+ blood, positive urinary sediment, 4+ bacteria -IV ceftriaxone (initiated 02/26) -Oseguera catheter changed on arrival with minimal output. Bladder scan pending -follow CBC, urine culture, blood cultures # acute hypoxemic respiratory failure- likely related to right lower lobe bandlike atelectasis and bibasilar compressive atelectasis and obesity hypoventilation syndrome -chronic hypoxemic hypercapnic respiratory failure noted in chart but does not use supplemental O2 at baseline -CTA chest negative for PE, infectious etiology. Trace pericardial effusion noted -monitor and maintain oximetry greater than 90% -incentive spirometry # trace pericardial effusion -no intervention needed at this time # acute kidney injury -likely secondary to severe sepsis as above -received 1 L IVF in the ED -avoid nephrotoxins -Strict I&O -follow BMP #Mood disorder -continue home meds #HTN- blood pressures soft -hold antihypertensives in setting of sepsis, resume as appropriate #BPH with urinary retension -continue oseguera -continue Flomax, Proscar #HFpEF- no acute exacerbation -continue Lasix #COPD- no acute exacerbation -albuterol prn #History atrial fibrillation -not on anticoagulation due to significant hematuria history -not on rate control- EKG shows sinus tachycardia # CAD/history NSTEMI/HLD -continue ASA, statin DVT prophylaxis- lovenox Full code Pt requires inpt stay at least 2 midnights for management of oseguera associated UTi with severe sepsis requiring IV antibiotics # Time Spent With Patient Time: Total time managing care of this patient today ____ minutes. Quality Stroke Does the patient have a stroke diagnosis?: No VTE Prior VTE?: No VTE Risk Level:: Medical - moderate - high VTE Device Contraindication: Treatment Not Indicated VTE Drug Contraindication: N/A - Med Ordered
[2023-02-26 18:35] LABS: Hematocrit 34.7 % (42.0-52.0); Hemoglobin 10.9 g/dl (14.0-18.0); Mean Corpuscular HGB Conc 31.4 g/dl (31.0-36.0); Mean Corpuscular Hemoglobin 25.3 pg (27.0-33.0); Mean Corpuscular Volume 80.7 fL (80.0-98.0); Mean Platelet Volume 9.2 fL (9.4-12.4); Platelet Count 487 X10*3/uL (160-400); Red Cell Distribution Width 14.7 % (11.0-16.0); White Blood Count 25.1 X10*3/uL (4.8-10.8)
[2023-02-26 18:38] LABS: Lactic Acid 1.1 mmol/L (0.5-2.0)
[2023-02-26 18:39] LABS: Iron 36 mcg/dL (45-160); Percent Iron Saturation 16 % (15-50); Total Iron Binding Capacity 222 mcg/dL (228-428); Unsaturated Iron Binding 186 ug/dL
[2023-02-26 18:48] LABS: INTERNATIONAL NORM RATIO 1.2 (0.9-1.1); Prothrombin Time 14.2 SEC (10.0-13.1)
[2023-02-26 18:49] LABS: Ferritin 310 ng/mL (20-250)
[2023-02-26 18:50] LABS: Partial Thromboplastin Time 43.5 SEC (26.0-36.4)
--- NOTE | 2023-02-26 20:19 | MHC.EDTECH ---
Patient check for inc and repostioned and new pad given
[2023-02-26] MEDS: Gabapentin 100 MG CAPSULE 200 MG PO (20:32)
[2023-02-26] MEDS: Amitriptyline HCl 25 MG TABLET 12.5 MG PO (20:32)
[2023-02-26] MEDS: cefTRIAXone sodium 1 GM in 0.9 % Sodium Chloride 50 ML IV (20:32)
[2023-02-26] MEDS: diazePAM 5 MG TABLET PO (20:33)
--- NOTE | 2023-02-26 22:16 | MHC.EDTECH ---
Sandwhich and drink given to patient
[2023-02-27 00:22] VITALS: BP 140/63; PULSE 82; RESP 20; TEMP 36.6; O2SAT 97
[2023-02-27 00:48] VITALS: BMI 41.8
[2023-02-27] MEDS: 0.9 % Sodium Chloride Flush 3 ML SYRINGE IVFLUSH ×3 (00:54→15:49)
[2023-02-27 04:00] VITALS: BP 135/104; PULSE 84; RESP 18; TEMP 36.4; O2SAT 96
[2023-02-27] MEDS: Omeprazole 20 MG CAPSULE.DR PO (06:20)
[2023-02-27] MEDS: Famotidine 20 MG TABLET PO (06:20)
[2023-02-27 06:37] LABS: Basophils Absolute Auto 0.1 X10*3/uL (0.0-0.2); Basophils Percent Auto 0.3 % (0-2); Eosinophils Absolute Auto 0.1 X10*3/uL (0.0-0.4); Eosinophils Percent Auto 0.5 % (0-4); Hematocrit 36.3 % (42.0-52.0); Hemoglobin 11.1 g/dl (14.0-18.0); Imm Gran Abs Auto 0.09 X10*3/uL (0.00-0.03); Imm Gran Pct Auto 0.6 % (0.0-0.4); Lymphocytes Absolute Auto 0.9 X10*3/uL (1.2-4.9); Lymphocytes Percent Auto 6.2 % (20-40); MANUAL DIFF FLAG NO; Mean Corpuscular HGB Conc 30.6 g/dl (31.0-36.0); Mean Corpuscular Hemoglobin 24.6 pg (27.0-33.0); Mean Corpuscular Volume 80.5 fL (80.0-98.0); Mean Platelet Volume 10.9 fL (9.4-12.4); Monocytes Absolute Auto 0.4 X10*3/uL (0.1-1.2); Monocytes Percent Auto 2.5 % (2-11); Neutrophils Absolute Auto 13.5 x10*3/uL (2.0-8.3); Neutrophils Percent Auto 89.9 % (45-73); Platelet Count 354 X10*3/uL (160-400); Red Blood Count 4.51 X10*6/uL (4.60-5.80); Red Cell Distribution Width 14.7 % (11.0-16.0); White Blood Count 15.1 X10*3/uL (4.8-10.8)
[2023-02-27 06:48] LABS: Anion Gap 16 (12-20); Blood Urea Nitrogen 21 mg/dL (9-16); Calcium 9.1 mg/dL (8.4-10.2); Carbon Dioxide 24 mmol/L (22-29); Chloride 104 mmol/L (96-108); Creatinine Clr Calc Pharmacy 54.6; Estimated Glomerular Filt Rate 46; Glucose Random 124 mg/dL (60-115); Potassium 4.5 mmol/L (3.3-5.1); Sodium 139 mmol/L (135-145)
[2023-02-27 07:25] VITALS: BP 106/56; PULSE 95; RESP 18; TEMP 37.7; O2SAT 96
[2023-02-27] MEDS: diazePAM 5 MG TABLET 2.5 MG PO ×2 (08:52→15:12)
[2023-02-27] MEDS: PARoxetine HCL 10 MG TABLET PO (08:52)
[2023-02-27] MEDS: Aspirin Enteric Coated 81 MG TABLET.DR PO (08:52)
[2023-02-27] MEDS: Gabapentin 100 MG CAPSULE 200 MG PO ×2 (08:52→21:37)
[2023-02-27] MEDS: Finasteride 5 MG TABLET PO (08:53)
[2023-02-27] MEDS: Potassium Chloride ER 10 MEQ TABLET.ER PO (08:53)
[2023-02-27] MEDS: Cholecalciferol (Vitamin D3) 25 MCG TABLET 50 MCG PO (08:53)
[2023-02-27] MEDS: Furosemide 40 MG TABLET PO (08:53)
[2023-02-27] MEDS: polyethylene glycoL 3350 17 GM POWD.PACK PO (08:56)
--- NOTE | 2023-02-27 10:09 | P.PNIM_ITS ---
Subjective Subjective Date of Service: 02/27/23 Interval History: some improvement Physical Exam Vital Signs: Vital Signs: Last Vital Signs Temp 99.9 F 02/27/23 07:25 Pulse 95 02/27/23 07:25 Resp 18 02/27/23 07:25 BP 106/56 L 02/27/23 07:25 Pulse Ox 96 02/27/23 07:25 O2 Del Method Nasal Cannula 02/27/23 07:25 O2 Flow Rate 1.5 02/27/23 07:25 Oxygen Flow Rate 4 02/26/23 10:56 BMI result Body Mass Index 41.8 General: AO X 3, no acute distress Resp: CTA bilateral, no accessory muscles used CVS: S1,S2,RRR GI: soft, non tender, non distended Neuro: motor grossly intact, alert Psych: appropriate affect, appropriate insight Objective Data Active Medications Acetaminophen (Acetaminophen 325 Mg Tablet) 650 mg PO Q6H PRN PRN Reason: Pain, Mild (Pain Scale 1-3) Acetaminophen (Acetaminophen 325 Mg Tablet) 650 mg PO Q4H PRN PRN Reason: Fever Or Pain Amitriptyline HCl (Amitriptyline Hcl 25 Mg Tablet) 12.5 mg PO BEDTIME ON LICENSE OF [facility] Last Admin: 02/26/23 20:32 Dose: 12.5 mg Documented By: DANAE Artificial Tears (Artificial Tears 15 Ml Drops) 1 drop EYE-BOTH DAILY PRN PRN Reason: Dry Eyes Aspirin (Aspirin Enteric Coated 81 Mg Tablet.Dr) 81 mg PO DAILY ON LICENSE OF [facility] Last Admin: 02/27/23 08:52 Dose: 81 mg Documented By: ALICE Bisacodyl (Bisacodyl 10 Mg Supp.Rect) 10 mg [place] DAILY PRN PRN Reason: Constipation Diazepam (Diazepam 5 Mg Tablet) 2.5 mg PO BID@0900,1500 ON LICENSE OF [facility] Last Admin: 02/27/23 08:52 Dose: 2.5 mg Documented By: ALICE Diazepam (Diazepam 5 Mg Tablet) 5 mg PO BEDTIME ON LICENSE OF [facility] Last Admin: 02/26/23 20:33 Dose: 5 mg Documented By: DANAE Docusate Sodium (Docusate Sodium 100 Mg Capsule) 100 mg PO DAILY PRN PRN Reason: Constipation Enoxaparin Sodium (Enoxaparin Sodium 40 Mg/0.4 Ml Syringe) 40 mg SUBCUT Q24H ON LICENSE OF [facility] Famotidine (Famotidine 20 Mg Tablet) 20 mg PO DAILY@0630 ON LICENSE OF [facility] Last Admin: 02/27/23 06:20 Dose: 20 mg Documented By: RASHEED Finasteride (Finasteride 5 Mg Tablet) 5 mg PO DAILY ON LICENSE OF [facility] Last Admin: 02/27/23 08:53 Dose: 5 mg Documented By: ALICE Furosemide (Furosemide 40 Mg Tablet) 40 mg PO DAILY ON LICENSE OF [facility]; Protocol Last Admin: 02/27/23 08:53 Dose: 40 mg Documented By: ALICE Gabapentin (Gabapentin 100 Mg Capsule) 200 mg PO BID ON LICENSE OF [facility] Last Admin: 02/27/23 08:52 Dose: 200 mg Documented By: ALICE Ceftriaxone Sodium 1 gm/ (Sodium Chloride) 50 mls @ 100 mls/hr IV Q24H ON LICENSE OF [facility] Last Infusion: 02/26/23 23:34 Dose: 0 mls/hr Documented By: RASHEED Magnesium Hydroxide (Milk Of Magnesia 30 Ml Oral.Susp) 30 ml PO DAILY PRN PRN Reason: Constipation Omeprazole (Omeprazole 20 Mg Capsule.Dr) 20 mg PO DAILY@0630 ON LICENSE OF [facility] Last Admin: 02/27/23 06:20 Dose: 20 mg Documented By: RASHEED Ondansetron HCl (Ondansetron Hcl 4 Mg/2 Ml Vial) 4 mg IVPUSH Q8H PRN PRN Reason: Nausea and Vomiting Paroxetine HCl (Paroxetine Hcl 10 Mg Tablet) 10 mg PO DAILY ON LICENSE OF [facility] Last Admin: 02/27/23 08:52 Dose: 10 mg Documented By: ALICE Pharmacy Consult (Consult Rx Perform Med Rec) 1 each MISCELLANE ONCE PRN PRN Reason: Consult order Polyethylene Glycol (Polyethylene Glycol 3350 17 Gm Powd.Pack) 17 gm PO DAILY ON LICENSE OF [facility] Last Admin: 02/27/23 08:56 Dose: 17 gm Documented By: ALICE Potassium Chloride (Potassium Chloride Er 10 Meq Tablet.Er) 10 meq PO DAILY ON LICENSE OF [facility] Last Admin: 02/27/23 08:53 Dose: 10 meq Documented By: ALICE Senna/Docusate Sodium (Sennosides/Docusate Sodium Tablet) 2 tab PO BEDTIME ON LICENSE OF [facility] Last Admin: 02/26/23 21:36 Dose: Not Given Documented By: DANAE Non-Admin Reason: Patient Refused Sodium Chloride (0.9 % Sodium Chloride Flush 3 Ml Syringe) 3 ml IVFLUSH QSHIFT ON LICENSE OF [facility] Last Admin: 02/27/23 08:56 Dose: 3 ml Documented By: ALICE Vitamin D (Cholecalciferol (Vitamin D3) 25 Mcg Tablet) 50 mcg PO DAILY ON LICENSE OF [facility] Last Admin: 02/27/23 08:53 Dose: 50 mcg Documented By: ALICE Labs 02/27/23 05:32 02/27/23 05:32 Labs: Laboratory Results - last 24 hr 02/26/23 02/26/23 02/26/23 11:10 11:10 11:10 MCV 79.5 L MCH 25.3 L MCHC 31.8 RDW 14.5 Plt Count 498 H D MPV 9.2 L Immature Gran % (Auto) 0.8 H Neut % (Auto) 91.5 H Lymph % (Auto) 3.3 L [place] % (Auto) 3.4 Eos % (Auto) 0.7 Baso % (Auto) 0.3 Lymph # (Auto) 0.6 L [place] # (Auto) 0.6 Eos # (Auto) 0.1 Baso # (Auto) 0.1 Abs Immat Gran (auto) 0.16 H Absolute Neuts (auto) 17.3 H Absolute Nucleated RBC 0.000 Nucleated RBC % (auto) 0.0 Smear Tech's Comments VERIFIED PT INR APTT Anion Gap 17 Estim Creat Clear Calc 50.1 Estimated GFR 46 Random Glucose 208 H Lactic Acid Calcium 10.1 D Iron TIBC % Saturation Unsat Iron Binding Ferritin Total Bilirubin 0.6 AST 25 ALT 43 H Alkaline Phosphatase 150 H Troponin I High Sens < 2.7 D B-Natriuretic Peptide Total Protein 7.7 Albumin 3.7 TSH Urine Color Urine Appearance Urine pH Ur Specific [place] Urine Protein Urine Glucose (UA) Urine Ketones Urine Blood Urine Nitrite Ur Leukocyte Esterase Urine RBC Urine WBC Ur Squamous Epith Cells Urine Bacteria Hyaline Casts COVID-19 (AC) COVID-19 Clin Com Influenza Type A (CASSIDY) Influenza Type B (CASSIDY) Influenza A & B Note 02/26/23 02/26/23 02/26/23 11:10 11:10 11:11 MCV MCH MCHC RDW Plt Count MPV Immature Gran % (Auto) Neut % (Auto) Lymph % (Auto) [place] % (Auto) Eos % (Auto) Baso % (Auto) Lymph # (Auto) [place] # (Auto) Eos # (Auto) Baso # (Auto) Abs Immat Gran (auto) Absolute Neuts (auto) Absolute Nucleated RBC Nucleated RBC % (auto) Smear Tech's Comments PT INR APTT 30.8 Anion Gap Estim Creat Clear Calc Estimated GFR Random Glucose Lactic Acid 1.6 Calcium Iron 36 L TIBC 222 L % Saturation 16 Unsat Iron Binding 186 Ferritin 310 H Total Bilirubin AST ALT Alkaline Phosphatase Troponin I High Sens B-Natriuretic Peptide Total Protein Albumin TSH 1.01 Urine Color Urine Appearance Urine pH Ur Specific [place] Urine Protein Urine Glucose (UA) Urine Ketones Urine Blood Urine Nitrite Ur Leukocyte Esterase Urine RBC Urine WBC Ur Squamous Epith Cells Urine Bacteria Hyaline Casts COVID-19 (AC) COVID-19 Clin Com Influenza Type A (CASSIDY) Influenza Type B (CASSIDY) Influenza A & B Note 02/26/23 02/26/23 02/26/23 11:11 11:12 11:12 MCV MCH MCHC RDW Plt Count MPV Immature Gran % (Auto) Neut % (Auto) Lymph % (Auto) [place] % (Auto) Eos % (Auto) Baso % (Auto) Lymph # (Auto) [place] # (Auto) Eos # (Auto) Baso # (Auto) Abs Immat Gran (auto) Absolute Neuts (auto) Absolute Nucleated RBC Nucleated RBC % (auto) Smear Tech's Comments PT INR APTT Anion Gap Estim Creat Clear Calc Estimated GFR Random Glucose Lactic Acid Calcium Iron TIBC % Saturation Unsat Iron Binding Ferritin Total Bilirubin AST ALT Alkaline Phosphatase Troponin I High Sens B-Natriuretic Peptide 48 Total Protein Albumin TSH Urine Color Urine Appearance Urine pH Ur Specific [place] Urine Protein Urine Glucose (UA) Urine Ketones Urine Blood Urine Nitrite Ur Leukocyte Esterase Urine RBC Urine WBC Ur Squamous Epith Cells Urine Bacteria Hyaline Casts COVID-19 (AC) Negative COVID-19 Clin Com See Note Influenza Type A (CASSIDY) Negative Influenza Type B (CASSIDY) Negative Influenza A & B Note See Note 02/26/23 02/26/23 02/26/23 15:07 18:22 18:22 MCV 80.7 MCH 25.3 L MCHC 31.4 RDW 14.7 Plt Count 487 H MPV 9.2 L Immature Gran % (Auto) Neut % (Auto) Lymph % (Auto) [place] % (Auto) Eos % (Auto) Baso % (Auto) Lymph # (Auto) [place] # (Auto) Eos # (Auto) Baso # (Auto) Abs Immat Gran (auto) Absolute Neuts (auto) Absolute Nucleated RBC 0.000 Nucleated RBC % (auto) 0.0 Smear Tech's Comments PT 14.2 H INR 1.2 H APTT 43.5 H D Anion Gap Estim Creat Clear Calc Estimated GFR Random Glucose Lactic Acid Calcium Iron TIBC % Saturation Unsat Iron Binding Ferritin Total Bilirubin AST ALT Alkaline Phosphatase Troponin I High Sens B-Natriuretic Peptide Total Protein Albumin TSH Urine Color Yellow Urine Appearance Cloudy Urine pH 5.5 Ur Specific [place] 1.015 Urine Protein 30 (1+) H Urine Glucose (UA) Negative Urine Ketones Trace Urine Blood Moderate (2+) H Urine Nitrite Positive H Ur Leukocyte Esterase Large (3+) H Urine RBC 6-10 H Urine WBC 21-50 H Ur Squamous Epith Cells 3-5 Urine Bacteria 4+ Hyaline Casts 6-10 COVID-19 (AC) COVID-19 Clin Com Influenza Type A (CASSIDY) Influenza Type B (CASSIDY) Influenza A & B Note 02/26/23 02/27/23 02/27/23 18:22 05:32 05:32 MCV 80.5 MCH 24.6 L MCHC 30.6 L RDW 14.7 Plt Count 354 D MPV 10.9 Immature Gran % (Auto) 0.6 H Neut % (Auto) 89.9 H Lymph % (Auto) 6.2 L [place] % (Auto) 2.5 Eos % (Auto) 0.5 Baso % (Auto) 0.3 Lymph # (Auto) 0.9 L [place] # (Auto) 0.4 Eos # (Auto) 0.1 Baso # (Auto) 0.1 Abs Immat Gran (auto) 0.09 H Absolute Neuts (auto) 13.5 H Absolute Nucleated RBC 0.000 Nucleated RBC % (auto) 0.0 Smear Tech's Comments PT INR APTT Anion Gap 16 Estim Creat Clear Calc 54.6 Estimated GFR 46 Random Glucose 124 H Lactic Acid 1.1 Calcium 9.1 D Iron TIBC % Saturation Unsat Iron Binding Ferritin Total Bilirubin AST ALT Alkaline Phosphatase Troponin I High Sens B-Natriuretic Peptide Total Protein Albumin TSH Urine Color Urine Appearance Urine pH Ur Specific [place] Urine Protein Urine Glucose (UA) Urine Ketones Urine Blood Urine Nitrite Ur Leukocyte Esterase Urine RBC Urine WBC Ur Squamous Epith Cells Urine Bacteria Hyaline Casts COVID-19 (AC) COVID-19 Clin Com Influenza Type A (CASSIDY) Influenza Type B (CASSIDY) Influenza A & B Note Microbiology Microbiology Results: Microbiology 02/26/23 11:11 Blood Culture - Preliminary Blood - Venous Prelim: GNR Gram Stain only 02/26/23 01:00 Blood Culture - Preliminary Blood - Venous Prelim: GNR Gram Stain only Assessment and Plan (1) Severe sepsis: Status: Acute Plan 72M PMH chronic heart failure with Preserved ejection fraction,? COPD not O2 dependent, type 2 diabetes, urinary retention with chronic Oseguera in place, depression, history of AFib, HTN, hypothyroidism, CAD, history of dysphagia, history UTI with e coli bacteremia admitted for UTI with severe sepsis and acute hypoxemic respiratory failure. severe sepsis due to acute pyelonephritis compicated by GNR bacteremia due to chronic indwelling oseguera catheter iv rocephin, follow up cultures acute hypoxic respiratory failure due to atelectasis and OHS spirometry, wean o2 trace pericardial effusion no intervention needed at this time acute kidney injury likely secondary to severe sepsis as above rule out obstruction with us monitor Mood disorder valium, elavil HTN- blood pressures soft hold antihypertensives in setting of sepsis, resume as appropriate BPH with urinary retension continue oseguera continue Flomax, Proscar HFpEF- no acute exacerbation continue Lasix COPD- no acute exacerbation albuterol prn parozysmal atrial fibrillation not on anticoagulation due to significant hematuria history not on rate control- EKG shows sinus tachycardia CAD/history NSTEMI/HLD continue ASA, statin DVT prophylaxis- lovenox Full code reason for continued hospitalization:awaiting cultures, defervesence Time Spent With Patient Time: Total time managing care of this patient today ____ minutes. Quality Stroke Does the patient have a stroke diagnosis?: No VTE Prior VTE?: No VTE Risk Level:: Medical - moderate - high VTE Device Contraindication: Treatment Not Indicated VTE Drug Contraindication: N/A - Med Ordered
[2023-02-27 14:12] LABS: Adenovirus PCR Not Detected (Not Detect.); Bordetella parapertussis PCR Not Detected (Not Detect.); Bordetella pertussis PCR Not Detected (Not Detect.); Chlamydia pneumoniae PCR Not Detected (Not Detect.); Coronavirus 229E PCR Not Detected (Not Detect.); Coronavirus HKU1 PCR Not Detected (Not Detect.); Coronavirus NL63 PCR Not Detected (Not Detect.); Coronavirus OC43 PCR Not Detected (Not Detect.); Human metapneumovirus PCR Not Detected (Not Detect.); Influenza A PCR Not Detected (Not Detect.); Influenza B PCR Not Detected (Not Detect.); Mycoplasma pneumoniae PCR Not Detected (Not Detect.); Parainfluenza 1 PCR Not Detected (Not Detect.); Parainfluenza 2 PCR Not Detected (Not Detect.); Parainfluenza 3 PCR Not Detected (Not Detect.); Parainfluenza 4 PCR Not Detected (Not Detect.); RSV PCR Not Detected (Not Detect.); Rhino/Enterovirus PCR Not Detected (Not Detect.); SARS-CoV-2 PCR Not Detected (Not Detect.)
[2023-02-27 14:40] LABS: INTERNATIONAL NORM RATIO 1.3 (0.9-1.1); Prothrombin Time 14.9 SEC (10.0-13.1)
--- NOTE | 2023-02-27 14:56 | MHC.CM.PN ---
pt from [facility] where he is on a bed hold dc robi is form,pt tomreturn to same will need bls transport
[2023-02-27] MEDS: Enoxaparin Sodium 40 MG/0.4 ML SYRINGE SUBCUT (15:13)
[2023-02-27] MEDS: cefTRIAXone sodium 1 GM in 0.9 % Sodium Chloride 50 ML IV (17:20)
[2023-02-27 20:00] VITALS: BP 127/58; PULSE 84; RESP 19; TEMP 37.3; O2SAT 94
[2023-02-27] MEDS: diazePAM 5 MG TABLET PO (21:37)
[2023-02-27] MEDS: Amitriptyline HCl 25 MG TABLET 12.5 MG PO (21:38)
[2023-02-28] MEDS: 0.9 % Sodium Chloride Flush 3 ML SYRINGE IVFLUSH ×4 (00:30→21:05)
[2023-02-28 03:56] VITALS: BP 145/65; PULSE 90; RESP 19; TEMP 38.1; O2SAT 97
[2023-02-28 04:47] VITALS: PULSE 84; RESP 18; TEMP 37.7
[2023-02-28] MEDS: Omeprazole 20 MG CAPSULE.DR PO (05:44)
[2023-02-28] MEDS: Famotidine 20 MG TABLET PO (05:44)
[2023-02-28 06:06] LABS: Hematocrit 34.3 % (42.0-52.0); Hemoglobin 10.5 g/dl (14.0-18.0); Mean Corpuscular HGB Conc 30.6 g/dl (31.0-36.0); Mean Corpuscular Hemoglobin 24.6 pg (27.0-33.0); Mean Corpuscular Volume 80.3 fL (80.0-98.0); Mean Platelet Volume 9.2 fL (9.4-12.4); Platelet Count 365 X10*3/uL (160-400); Red Blood Count 4.27 X10*6/uL (4.60-5.80); Red Cell Distribution Width 14.9 % (11.0-16.0); White Blood Count 13.8 X10*3/uL (4.8-10.8)
[2023-02-28 06:19] LABS: Anion Gap 13 (12-20); Blood Urea Nitrogen 21 mg/dL (9-16); Calcium 9.2 mg/dL (8.4-10.2); Carbon Dioxide 24 mmol/L (22-29); Chloride 102 mmol/L (96-108); Estimated Glomerular Filt Rate 55; Glucose Fasting 136 mg/dL (60-99); Potassium 4.3 mmol/L (3.3-5.1); Sodium 135 mmol/L (135-145)
[2023-02-28 07:21] VITALS: BP 149/65; PULSE 104; RESP 18; TEMP 38.3; O2SAT 95
[2023-02-28] MEDS: Acetaminophen 325 MG TABLET 650 MG PO (07:27)
--- NOTE | 2023-02-28 08:09 | P.PNIM_ITS ---
Subjective Subjective Date of Service: 02/28/23 Interval History: fevers Physical Exam Vital Signs: Vital Signs: Last Vital Signs Temp 101.0 F H 02/28/23 07:21 Pulse 104 H 02/28/23 07:21 Resp 18 02/28/23 07:21 BP 149/65 H 02/28/23 07:21 Pulse Ox 95 02/28/23 07:21 O2 Del Method Nasal Cannula 02/28/23 07:21 O2 Flow Rate 2 02/28/23 07:21 Oxygen Flow Rate 4 02/26/23 10:56 BMI result Body Mass Index 41.8 General: AO X 3, no acute distress Resp: CTA bilateral, no accessory muscles used CVS: S1,S2,RRR GI: soft, non tender, non distended Neuro: motor grossly intact, alert Psych: appropriate affect, appropriate insight Objective Data Active Medications Acetaminophen (Acetaminophen 325 Mg Tablet) 650 mg PO Q6H PRN PRN Reason: Pain, Mild (Pain Scale 1-3) Last Admin: 02/28/23 07:27 Dose: 650 mg Documented By: ALICE Acetaminophen (Acetaminophen 325 Mg Tablet) 650 mg PO Q4H PRN PRN Reason: Fever Or Pain Amitriptyline HCl (Amitriptyline Hcl 25 Mg Tablet) 12.5 mg PO BEDTIME [facility] Last Admin: 02/27/23 21:38 Dose: 12.5 mg Documented By: ANY Artificial Tears (Artificial Tears 15 Ml Drops) 1 drop EYE-BOTH DAILY PRN PRN Reason: Dry Eyes Aspirin (Aspirin Enteric Coated 81 Mg Tablet.Dr) 81 mg PO DAILY [facility] Last Admin: 02/27/23 08:52 Dose: 81 mg Documented By: ALICE Bisacodyl (Bisacodyl 10 Mg Supp.Rect) 10 mg [place] DAILY PRN PRN Reason: Constipation Diazepam (Diazepam 5 Mg Tablet) 2.5 mg PO BID@0900,1500 [facility] Last Admin: 02/27/23 15:12 Dose: 2.5 mg Documented By: ALICE Diazepam (Diazepam 5 Mg Tablet) 5 mg PO BEDTIME [facility] Last Admin: 02/27/23 21:37 Dose: 5 mg Documented By: ANY Docusate Sodium (Docusate Sodium 100 Mg Capsule) 100 mg PO DAILY PRN PRN Reason: Constipation Enoxaparin Sodium (Enoxaparin Sodium 40 Mg/0.4 Ml Syringe) 40 mg SUBCUT Q24H [facility] Last Admin: 02/27/23 15:13 Dose: 40 mg Documented By: ALICE Famotidine (Famotidine 20 Mg Tablet) 20 mg PO DAILY@0630 [facility] Last Admin: 02/28/23 05:44 Dose: 20 mg Documented By: FRAN Finasteride (Finasteride 5 Mg Tablet) 5 mg PO DAILY [facility] Last Admin: 02/27/23 08:53 Dose: 5 mg Documented By: ALICE Furosemide (Furosemide 40 Mg Tablet) 40 mg PO DAILY [facility]; Protocol Last Admin: 02/27/23 08:53 Dose: 40 mg Documented By: ALICE Gabapentin (Gabapentin 100 Mg Capsule) 200 mg PO BID [facility] Last Admin: 02/27/23 21:37 Dose: 200 mg Documented By: ANY Ceftriaxone Sodium 1 gm/ (Sodium Chloride) 50 mls @ 100 mls/hr IV Q24H [facility] Last Infusion: 02/27/23 18:02 Dose: 0 mls/hr Documented By: ALICE Magnesium Hydroxide (Milk Of Magnesia 30 Ml Oral.Susp) 30 ml PO DAILY PRN PRN Reason: Constipation Omeprazole (Omeprazole 20 Mg Capsule.Dr) 20 mg PO DAILY@0630 [facility] Last Admin: 02/28/23 05:44 Dose: 20 mg Documented By: FRAN Ondansetron HCl (Ondansetron Hcl 4 Mg/2 Ml Vial) 4 mg IVPUSH Q8H PRN PRN Reason: Nausea and Vomiting Paroxetine HCl (Paroxetine Hcl 10 Mg Tablet) 10 mg PO DAILY [facility] Last Admin: 02/27/23 08:52 Dose: 10 mg Documented By: ALICE Pharmacy Consult (Consult Rx Perform Med Rec) 1 each MISCELLANE ONCE PRN PRN Reason: Consult order Polyethylene Glycol (Polyethylene Glycol 3350 17 Gm Powd.Pack) 17 gm PO DAILY [facility] Last Admin: 02/27/23 08:56 Dose: 17 gm Documented By: ALICE Potassium Chloride (Potassium Chloride Er 10 Meq Tablet.Er) 10 meq PO DAILY [facility] Last Admin: 02/27/23 08:53 Dose: 10 meq Documented By: ALICE Senna/Docusate Sodium (Sennosides/Docusate Sodium Tablet) 2 tab PO BEDTIME [facility] Last Admin: 02/27/23 21:39 Dose: Not Given Documented By: ANY Non-Admin Reason: Patient Refused Sodium Chloride (0.9 % Sodium Chloride Flush 3 Ml Syringe) 3 ml IVFLUSH QSHIFT [facility] Last Admin: 02/28/23 00:30 Dose: 3 ml Documented By: FRAN Vitamin D (Cholecalciferol (Vitamin D3) 25 Mcg Tablet) 50 mcg PO DAILY [facility] Last Admin: 02/27/23 08:53 Dose: 50 mcg Documented By: ALICE Labs 02/28/23 05:35 02/28/23 05:35 Labs: Laboratory Results - last 24 hr 02/26/23 02/27/23 02/28/23 21:43 14:24 05:35 MCV 80.3 MCH 24.6 L MCHC 30.6 L RDW 14.9 Plt Count 365 MPV 9.2 L Absolute Nucleated RBC 0.000 Nucleated RBC % (auto) 0.0 PT 14.9 H INR 1.3 H Anion Gap Estim Creat Clear Calc Estimated GFR Fasting Glucose Calcium Respiratory Panel Plaza See Note Adenovirus (Rapid PCR) Not Detected B.pert (TEM-PCR) Not Detected B.parapertussis DNA PCR Not Detected C. pneumoniae DNA (PCR) Not Detected Coronavirus OC43 (PCR) Not Detected Coronavirus HKU1 (PCR) Not Detected Coronavirus 229E (PCR) Not Detected Coronavirus NL63 (PCR) Not Detected Human Metapneumovir PCR Not Detected Influenza A (RT-PCR) Not Detected Influenza B (RT-PCR) Not Detected M. pneumoniae (PCR) Not Detected Parainfluenza 1 (PCR) Not Detected Parainfluenza 2 (PCR) Not Detected Parainfluenza 3 (PCR) Not Detected Parainfluenza 4 (PCR) Not Detected RSV (PCR) Not Detected Entero/Rhino (PCR) Not Detected SARS-CoV-2 RNA (RT-PCR) Not Detected 02/28/23 05:35 MCV MCH MCHC RDW Plt Count MPV Absolute Nucleated RBC Nucleated RBC % (auto) PT INR Anion Gap 13 Estim Creat Clear Calc 64.0 Estimated GFR 55 Fasting Glucose 136 H Calcium 9.2 Respiratory Panel [address] Adenovirus (Rapid PCR) B.pert (TEM-PCR) B.parapertussis DNA PCR C. pneumoniae DNA (PCR) Coronavirus OC43 (PCR) Coronavirus HKU1 (PCR) Coronavirus 229E (PCR) Coronavirus NL63 (PCR) Human Metapneumovir PCR Influenza A (RT-PCR) Influenza B (RT-PCR) M. pneumoniae (PCR) Parainfluenza 1 (PCR) Parainfluenza 2 (PCR) Parainfluenza 3 (PCR) Parainfluenza 4 (PCR) RSV (PCR) Entero/Rhino (PCR) SARS-CoV-2 RNA (RT-PCR) Microbiology Microbiology Results: Microbiology 02/26/23 11:11 Blood Culture - Final Blood - Venous Escherichia coli 02/26/23 01:00 Blood Culture - Final Blood - Venous Escherichia coli 02/26/23 Unknown Urine Culture - Final Urine Catheterized - Oseguera Catheter Assessment and Plan (1) Severe sepsis: Status: Acute Plan 72M PMH chronic heart failure with Preserved ejection fraction,? COPD not O2 dependent, type 2 diabetes, urinary retention with chronic Oseguera in place, depression, history of AFib, HTN, hypothyroidism, CAD, history of dysphagia, h istory UTI with e coli bacteremia admitted for UTI with severe sepsis and acute hypoxemic respiratory failure. severe sepsis due to acute pyelonephritis compicated by ecoli bacteremia due to chronic indwelling oseguera catheter iv rocephin, still febrile acute hypoxic respiratory failure due to atelectasis and OHS spirometry, wean o2 trace pericardial effusion no intervention needed at this time acute kidney injury likely secondary to severe sepsis as above rule out obstruction with us monitor Mood disorder valium, elavil HTN- blood pressures soft hold antihypertensives in setting of sepsis, resume as appropriate BPH with urinary retention continue oseguera continue Flomax, Proscar HFpEF- no acute exacerbation continue Lasix COPD- no acute exacerbation albuterol prn parozysmal atrial fibrillation not on anticoagulation due to significant hematuria history not on rate control- EKG shows sinus tachycardia CAD/history NSTEMI/HLD continue ASA, statin DVT prophylaxis- lovenox Full code reason for continued hospitalization:awaiting defervesence Time Spent With Patient Time: Total time managing care of this patient today ____ minutes. Quality Stroke Does the patient have a stroke diagnosis?: No VTE Prior VTE?: No VTE Risk Level:: Medical - moderate - high VTE Device Contraindication: Treatment Not Indicated VTE Drug Contraindication: N/A - Med Ordered
[2023-02-28] MEDS: polyethylene glycoL 3350 17 GM POWD.PACK PO (08:20)
[2023-02-28] MEDS: Potassium Chloride ER 10 MEQ TABLET.ER PO (08:20)
[2023-02-28] MEDS: diazePAM 5 MG TABLET 2.5 MG PO ×2 (08:20→14:31)
[2023-02-28] MEDS: Gabapentin 100 MG CAPSULE 200 MG PO ×2 (08:21→21:06)
[2023-02-28] MEDS: Aspirin Enteric Coated 81 MG TABLET.DR PO (08:21)
[2023-02-28] MEDS: Cholecalciferol (Vitamin D3) 25 MCG TABLET 50 MCG PO (08:21)
[2023-02-28] MEDS: Finasteride 5 MG TABLET PO (08:21)
[2023-02-28] MEDS: PARoxetine HCL 10 MG TABLET PO (08:21)
[2023-02-28] MEDS: Furosemide 40 MG TABLET PO (08:21)
--- NOTE | 2023-02-28 14:04 | MHC.CM.PN ---
per rounds pt not ready for dc has a temp pt to return to [facility]
[2023-02-28] MEDS: Enoxaparin Sodium 40 MG/0.4 ML SYRINGE SUBCUT (14:32)
[2023-02-28 16:00] VITALS: BP 110/55; PULSE 82; RESP 18; TEMP 36.5; O2SAT 92
[2023-02-28] MEDS: cefTRIAXone sodium 1 GM in 0.9 % Sodium Chloride 50 ML IV (17:03)
[2023-02-28 20:00] VITALS: BP 109/59; PULSE 76; RESP 18; TEMP 36.2; O2SAT 95
[2023-02-28] MEDS: Amitriptyline HCl 25 MG TABLET 12.5 MG PO (21:05)
[2023-02-28] MEDS: Sennosides/Docusate Sodium TABLET 2 TAB PO (21:05)
[2023-02-28] MEDS: diazePAM 5 MG TABLET PO (21:06)
[2023-03-01 03:29] VITALS: BP 137/61; PULSE 75; RESP 17; TEMP 36.6; O2SAT 96
[2023-03-01] MEDS: Famotidine 20 MG TABLET PO (05:45)
[2023-03-01] MEDS: Omeprazole 20 MG CAPSULE.DR PO (05:45)
[2023-03-01 06:03] LABS: Hematocrit 32.5 % (42.0-52.0); Hemoglobin 10.3 g/dl (14.0-18.0); Mean Corpuscular HGB Conc 31.7 g/dl (31.0-36.0); Mean Corpuscular Hemoglobin 25.1 pg (27.0-33.0); Mean Corpuscular Volume 79.1 fL (80.0-98.0); Mean Platelet Volume 9.4 fL (9.4-12.4); Platelet Count 323 X10*3/uL (160-400); Red Blood Count 4.11 X10*6/uL (4.60-5.80); Red Cell Distribution Width 14.9 % (11.0-16.0); White Blood Count 10.9 X10*3/uL (4.8-10.8)
[2023-03-01 06:29] LABS: Anion Gap 10 (12-20); Blood Urea Nitrogen 19 mg/dL (9-16); Calcium 9.1 mg/dL (8.4-10.2); Carbon Dioxide 28 mmol/L (22-29); Chloride 104 mmol/L (96-108); Creatinine Clr Calc Pharmacy 72.5; Estimated Glomerular Filt Rate > 60; Glucose Fasting 117 mg/dL (60-99); Potassium 4.4 mmol/L (3.3-5.1); Sodium 138 mmol/L (135-145)
[2023-03-01 07:44] VITALS: BP 136/65; PULSE 78; RESP 16; TEMP 36.6; O2SAT 94
[2023-03-01] MEDS: Gabapentin 100 MG CAPSULE 200 MG PO (08:12)
[2023-03-01] MEDS: Potassium Chloride ER 10 MEQ TABLET.ER PO (08:12)
[2023-03-01] MEDS: Furosemide 40 MG TABLET PO (08:12)
[2023-03-01] MEDS: PARoxetine HCL 10 MG TABLET PO (08:12)
[2023-03-01] MEDS: Aspirin Enteric Coated 81 MG TABLET.DR PO (08:12)
[2023-03-01] MEDS: Cholecalciferol (Vitamin D3) 25 MCG TABLET 50 MCG PO (08:12)
[2023-03-01] MEDS: 0.9 % Sodium Chloride Flush 3 ML SYRINGE IVFLUSH (08:13)
[2023-03-01] MEDS: Finasteride 5 MG TABLET PO (08:13)
[2023-03-01] MEDS: diazePAM 5 MG TABLET 2.5 MG PO (08:13)
[2023-03-01] MEDS: polyethylene glycoL 3350 17 GM POWD.PACK PO (08:13)
--- NOTE | 2023-03-01 08:25 | P.DS_ITS ---
DS: Providers Provider Date of Service: 03/01/23 Date of admission: 02/26/23 17:32 Primary care physician: Unknown Physician DS: Diagnosis Discharge Diagnosis (1) Severe sepsis: Status: Acute DS: Summary Hospital Course Hospital Course: from initial hpi: 72-year-old male with past medical history of chronic heart failure with Preserved ejection fraction,? COPD not O2 dependent, type 2 diabetes, urinary retention with chronic Witt in place, depression, history of AFib, HTN, hypothyroidism, CAD, history of dysphagia, history UTI with e coli bacteremia presented to the ED from SNF where he resides for evaluation of lightheadedness, chills, and perioral cyanosis reported by nursing staff that came on this morning.? He does describe some shortness of breath as well.? He is noted to be hypoxic at 75% on room air with increased the 80s on 2 L nasal cannula. He also reported abdominal distension earlier today and has chronic Witt in place.? Denies any fevers, dysuria, hematuria, nausea, vomiting, diarrhea, constipation, palpitations, chest pain, cough.? He denies any recent illness. On arrival, patient afebrile though has slightly elevated temp of 100.1 degrees rectally on admission, tachycardic on arrival to 136, continued on 4L supplemental O2 on arrival.? There is a leukocytosis of 18.9.? Creatinine 1.50, baseline 1.16.? BUN 23, electrolyte levels normal.? Troponin below detectable limits.? BNP 48.? Urinalysis with 3+ leukocytes, positive nitrites, 2+ blood, positive urinary sediment, 4+ bacteria.? Negative for COVID-19, influenza.? CXR negative for any acute cardiopulmonary abnormality.? CTA chest negative for any PE, dissection, aneurysm but does show right lower lobe bandlike atelectasis and minimal bibasilar compressive atelectasis with trace pericardial effusion.? There is also incidentally noted right thyroid enlargement with calcification.? In the ED, patient treated empirically with 100 mg therapeutic Lovenox while awaiting results of CTA, 1 L IV NS, IV Zosyn, IV vanco. hospital course: Patient was admitted for severe sepsis due to acute pyelonephritis complicated by E coli bacteremia due to chronic indwelling Witt catheter. History with IV ceftriaxone and sepsis resolved. He will be discharged on 7 more days of cefuroxime. Patient also noted to have acute hypoxic respiratory failure secondary to atelectasis, ohs, sepsis. He was eventually weaned off O2. Noted to have incidental finding of trace pericardial effusion, admission and acute kidney injury which improved to baseline at discharge. Mood disorder was continue Valium and Elavil. For hypertension blood pressure was soft during admission so BP meds were held, the can be restarted at discharge. For BPH with urinary retention his chronic Witt was continued, as was Flomax and Proscar. For chronic diastolic CHF he was continued on Lasix. For COPD use continue on albuterol as needed. For paroxysmal atrial fibrillation he is not on anticoagulation due to significant hematuria history. For coronary disease he was continued on aspirin and statin. Patient is feeling better [facility] Time Spent with Patient Time attestation: Total time managing care of this patient today ____ minutes. Discharge coordination time: Greater than 30 minutes Quality: Safe Use of Opioids Does Pt have an Active Cancer Diagnosis on the Problem List?: No Quality: Stroke Does the patient have a stroke diagnosis?: No Physical Exam Vital Signs: Vital Signs: Last Vital Signs Temp 97.8 F 03/01/23 07:44 Pulse 78 03/01/23 07:44 Resp 16 03/01/23 07:44 BP 136/65 03/01/23 07:44 Pulse Ox 94 03/01/23 07:44 O2 Del Method Nasal Cannula 03/01/23 07:44 O2 Flow Rate 1 03/01/23 07:44 Oxygen Flow Rate 4 02/26/23 10:56 BMI result Body Mass Index 41.8 General: AO X 3, no acute distress Resp: CTA bilateral, no accessory muscles used CVS: S1,S2,RRR GI: soft, non tender, non distended Neuro: motor grossly intact, alert Psych: appropriate affect, appropriate insight DS: Data Data Completed and Pending Completed studies during hospitalization [Text1]: Procedures Drainage of Bladder with Drainage Device, Percutaneous Endoscopic Approach (11/13/22) Excision of Urethra, Via Natural or Artificial Opening Endoscopic (11/13/22) Extirpation of Matter from Bladder, Via Natural or Artificial Opening Endoscopic (11/13/22) Insertion of Endotracheal Airway into Trachea, Via Natural or Artificial Opening (10/17/20) Insertion of Endotracheal Airway into Trachea, Via Natural or Artificial Opening Endoscopic (10/17/20) Introduction of Vasopressor into Peripheral Vein, Percutaneous Approach (10/17/20) Removal of Drainage Device from Bladder, External Approach (11/13/22) Respiratory Ventilation, Greater than 96 Consecutive Hours (10/17/20) Transfusion of Nonautologous Red Blood Cells into Peripheral Vein, Percutaneous Approach (11/13/22) Labs on day of discharge: Laboratory Results - last 24 hr 03/01/23 03/01/23 05:39 05:39 WBC 10.9 H RBC 4.11 L Hgb 10.3 L Hct 32.5 L MCV 79.1 L MCH 25.1 L MCHC 31.7 RDW 14.9 Plt Count 323 MPV 9.4 Absolute Nucleated RBC 0.000 Nucleated RBC % (auto) 0.0 Sodium 138 Potassium 4.4 Chloride 104 Carbon Dioxide 28 Anion Gap 10 L BUN 19 H Creatinine 1.13 Estim Creat Clear Calc 72.5 Estimated GFR > 60 Fasting Glucose 117 H Calcium 9.1 Discharge Plan Discharge Anticipated Discharge Date/Time: 03/01/23 08:22 Patient Disposition: [facility] Discharge Diagnosis: sepsis, uti Referrals: Physician,Unknown J [Primary Care Provider] - 1 Week Discharge Medications: New cefuroxime axetil 500 mg tablet 500 mg PO BID Qty: 14 0RF Continued furosemide 40 mg Tablet 40 mg PO DAILY Qty: 30 0RF Protocol: Hold for SBP< HOLD for SBP < : 90 polyethylene glycol 3350 [Miralax] 17 gram powder in packet 17 g PO DAILY Qty: 30 0RF Rx Instructions: FOR CONSTIPATION MANAGEMENT atorvastatin 40 mg tablet 40 mg PO DAILY finasteride 5 mg tablet 5 mg PO DAILY losartan 100 mg tablet 100 mg PO DAILY tamsulosin 0.4 mg capsule 0.4 mg PO BEDTIME paroxetine HCl 10 mg Tablet 10 mg PO DAILY gabapentin 100 mg Capsule 200 mg PO BID potassium chloride 10 mEq Tablet,Er Particles/Crystals 10 meq PO DAILY cholecalciferol (vitamin D3) 50 mcg (2,000 unit) Tablet 50 mcg PO DAILY sennosides-docusate sodium [Senna Plus] 8.6-50 mg tablet 2 tab PO BEDTIME omeprazole 20 mg Capsule,Delayed Release(Dr/Ec) 20 mg PO DAILY naproxen [Naprosyn] 500 mg Tablet 500 mg PO Q12H PRN (Reason: Pain) Probiotic 1 cap PO BID aspirin 81 mg Tablet,Delayed Release (Dr/Ec) 81 mg PO DAILY Qty: 30 0RF diazepam 5 mg Tablet 2.5 mg PO BID@0900,1500 diazepam 5 mg Tablet 5 mg PO BEDTIME bisacodyl 10 mg Suppository 10 mg NE DAILY PRN (Reason: Constipation) Rx Instructions: USE IF NO BOWEL MOVEMENT FOR 8 HOURS AFTER MILK OF MAGNESIA Fleet Enema 19-7 gram/118 mL Enema 118 ml NE DAILY PRN (Reason: Constipation) Rx Instructions: USE IF NO BOWEL MOVEMENT FOR 8 HOURS AFTER BISACODYL SUPPOSITORY magnesium citrate Solution 150 ml PO DAILY PRN (Reason: Constipation) Rx Instructions: GIVE IF NO BOWEL MOVEMENT IN 12 HOURS AFTER FLEET ENEMA magnesium hydroxide [Milk of Magnesia] 400 mg/5 mL Suspension 30 ml PO DAILY PRN (Reason: Constipation) Rx Instructions: USE IF NO BOWEL MOVEMENT FOR THREE DAYS acetaminophen 325 mg Tablet 650 mg PO Q4H PRN (Reason: Fever Or Pain) Artificial Tears (cmc) 1 % Drops 1 drp OPHTHALMIC (EYE) DAILY PRN (Reason: Dry Eyes) famotidine 20 mg tablet 20 mg PO DAILY@0630 amitriptyline 25 mg tablet 12.5 mg PO BEDTIME Qty: 30 0RF amlodipine 2.5 mg tablet 2.5 mg PO DAILY Qty: 30 0RF Discharge Orders: Discharge Order (Routine); Ordered 03/01/23 Ordered By: Christophe Mckinnon Diet: Advance to usual diet Activity on Discharge: As tolerated Stand Alone Forms: Patient Portal Discharge page Other Ambulatory Orders: US thyroid (Routine) Timeframe: 1 Week Facility: [facility] - Location: Ultrasound Ordered By: Christophe Mckinnon Care Plan Goals: recovery Health Concerns: sepsis Plan of Treatment: 7 more days ceftin Assessment: see above
--- NOTE | 2023-03-01 09:39 | MHC.CM.PN ---
Addendum entered by Tory Callahan RN 03/01/23 09:41: CM ATTEMPTED TO CONTACT PT [facility] AT 9:40AM, DETAILED MESSAGE LEFT. Original Note: PT MEDICALLY CLEARED FOR D/C BACK TO [facility] FOR LTC, [facility] WILL TRANSPORT.
[2023-03-01 12:11] VITALS: O2SAT 93
== END 2023-03-01 12:52 | disposition skilled nursing facility (03) | DRG 698 ==
LOC: HO.ED 15:26 → HO.EDOVER 17:45 → HO.S3 23:19
PROVIDERS: Student in an Organized Health Care Education/Training Program; Admitting Provider Physician Assistant; Emergency Provider Emergency Medicine; PCP Internal Medicine; Visit Provider Internal Medicine
DX: T83.511A Infection and inflammatory reaction due to indwelling urethral catheter, initial encounter (principal); A41.51 Sepsis due to Escherichia coli [E. coli]; J96.01 Acute respiratory failure with hypoxia; R65.20 Severe sepsis without septic shock; N17.9 Acute kidney failure, unspecified; I13.0 Hypertensive heart and chronic kidney disease with heart failure and stage 1 through stage 4 chronic kidney disease, or unspecified chronic kidney disease; I50.32 Chronic diastolic (congestive) heart failure; J98.11 Atelectasis; E66.2 Morbid (severe) obesity with alveolar hypoventilation; Z68.41 Body mass index [BMI] 40.0-44.9, adult; N10 Acute pyelonephritis; J44.9 Chronic obstructive pulmonary disease, unspecified; I25.10 Atherosclerotic heart disease of native coronary artery without angina pectoris; N40.1 Benign prostatic hyperplasia with lower urinary tract symptoms; I48.0 Paroxysmal atrial fibrillation; I25.2 Old myocardial infarction; R33.8 Other retention of urine; E03.9 Hypothyroidism, unspecified; Z20.822 Contact with and (suspected) exposure to COVID-19; Z79.82 Long term (current) use of aspirin; Z79.899 Other long term (current) drug therapy
CPT/HCPCS: 36415; 71045; 71275; 76775; 80048; 80053; 81001; 82728; 83540; 83605; 83880; 84443; 84484; 85025; 85027; 85610; 85730; 87040; 87077; 87086; 87186; 87205; 87502; 87633; 87635; 93005; 99285; C1758; J0696; J1650; J2543; J3370; Q9967

== ENCOUNTER → 2023-02-26 10:56 | Outpatient (BNV) | payer MEDICARE, OTHER, SELFPAY | PROVIDERS: Emergency Provider Emergency Medicine; Visit Provider Internal Medicine Cardiovascular Disease | DX: R00.0 Tachycardia, unspecified (principal) | CPT/HCPCS: 93010 ==

== ENCOUNTER → 2023-02-26 11:28 | Outpatient (BNV) | payer MEDICARE, OTHER, SELFPAY | PROVIDERS: Emergency Provider Emergency Medicine; Visit Provider Student in an Organized Health Care Education/Training Program | DX: A41.9 Sepsis, unspecified organism (principal); R65.20 Severe sepsis without septic shock; J96.21 Acute and chronic respiratory failure with hypoxia; N17.9 Acute kidney failure, unspecified; N39.0 Urinary tract infection, site not specified | CPT/HCPCS: 99223; 99233; 99239; 99499 ==

== ENCOUNTER 2023-03-07 14:07 | Outpatient (AMB) | payer MEDICARE, OTHER, SELFPAY ==
--- NOTE | 2023-03-07 14:10 | A.OFFVIS_ITS ---
Intake Vital Signs 03/07/23 14:11 Height 5 ft 7 in Weight 185 lb 10.067 oz BMI 29.1 BP 88/50 L Blood Pressure Location Lt brachial Position Sitting Pulse 98 Pulse Source Monitor Intake Visit Reasons: 3 MON FUP AFTER ANTONIA Intake Note: 3 month follow up with EKG. 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 Accompanied by: Self / Same As Patient Allergies No Known Allergies [No Known Allergies*] Allergy (Verified 03/07/23 14:15) Medication List - Last Reconciled 03/07/23 by Mike Lamas MD acetaminophen 650 mg PO Q4H PRN amitriptyline 12.5 mg (1/2 x 25 mg) PO BEDTIME amlodipine 2.5 mg PO DAILY aspirin 81 mg PO DAILY atorvastatin 40 mg PO DAILY bisacodyl 10 mg WI DAILY PRN carboxymethylcellulose sodium 1% (Artificial Tears (carboxymethylcellulose)) 1 drp ophthalmic (eye) DAILY PRN cefuroxime axetil 500 mg PO BID cholecalciferol (vitamin D3) 50 mcg PO DAILY diazepam 2.5 mg PO BID@0900,1500 diazepam 5 mg PO BEDTIME famotidine 20 mg PO DAILY@0630 finasteride 5 mg PO DAILY furosemide 40 mg See Protocol PO DAILY gabapentin 200 mg PO BID losartan 100 mg PO DAILY magnesium citrate 150 mL PO DAILY PRN magnesium hydroxide (Milk of Magnesia) 30 mL PO DAILY PRN naproxen (Naprosyn) 500 mg PO Q12H PRN omeprazole 20 mg PO DAILY paroxetine HCl 10 mg PO DAILY polyethylene glycol 3350 (Miralax) 17 grams PO DAILY potassium chloride ER 10 mEq PO DAILY [Probiotic 1 cap PO BID] sennosides-docusate sodium 8.6-50 mg (Senna Plus) 2 tabs PO BEDTIME sodium phosphates 19-7 gram/118 mL (Fleet Enema) 118 mL WI DAILY PRN tamsulosin 0.4 mg PO BEDTIME HPI HPI Comments History of Present Illness Details Daniel is here for follow-up after admission to [facility] when he presented with urinary tract infection and bacteremia. He had significantly elevated troponin levels and also complained of atypical chest pain. Given chest discomfort restarted him on Lovenox and decided to treat him for NSTEMI although it was unclear whether this is a type 1 or type 2 event. He did not have any dynamic EKG changes or wall motion abnormality and his LV function was preserved by echocardiography without wall motion abnormalities. Unfortunately, while on Lovenox he had urinary retention and but a Oseguera cat heter was placed and he had significant hematuria which led to stopping of the Lovenox. He did not have any further chest pain. Subsequently he was discharged to a rehab facility and he is coming back for follow-up from there. He is saying he is doing better. No further bleeding. We discussed whether he can exercise and is saying he was able to exercise on treadmill. 03/07/23: He returns for follow-up. He unfortunately had another episode of urinary infection which was quite complicated and he received antibiotics. He has not gone for stress test. He came in a wheelchair. He is unable to exercise. He is denying any chest discomfort shortness of breath. His blood pressure is low though. He is on multiple medications currently. [facility] Medical History Abdomen enlarged Acute on chronic heart failure with preserved ejection fraction (HFpEF) Acute on chronic respiratory failure with hypoxia and hypercapnia Acute renal failure Acute respiratory failure with hypoxia Acute upper gastrointestinal bleeding Afib STIVEN (acute kidney injury) Altered mental status Aspiration pneumonitis Atypical pneumonia Borderline diabetic CHF exacerbation Congestive heart failure Hypertension Hyperthyroidism Hypoxia Ileus Multifocal pneumonia Myocardial infarct Partial obstruction of small intestine Pneumonia Pulmonary aspiration Recurrent major depression Sepsis associated hypotension Toxic metabolic encephalopathy Urethral stricture in male Urinary catheter in place Urinary tract infection Surgical History History of shoulder surgery History of surgery of head Family History Mother No problems noted. Father Heart disease Social History Household Members: Other Housing: [facility] Do you presently have visiting nurse or other home services: No Alcohol intake: former Year quit: 1989 Patient Tobacco Use Status: Never used Tobacco Substance Use Type: Unknown Advance Directives Date on File: 11/01/20 service: No Current occupational status: retired Review of Systems Const Denies weakness ENT Denies dizziness Card Denies chest pain, Denies chest pain with activity, Denies syncope, Denies rapid heart rate, Denies pedal edema, Denies edema, Denies leg edema, Denies lightheadedness, Denies palpitations, Denies dyspnea, Denies dyspnea on exertion and Denies orthopnea Resp Denies cough, Denies dyspnea and Denies dyspnea on exertion GI Denies hematochezia and Denies change in stool character Musc Denies abnormal gait, Denies muscle cramps, Denies muscle weakness, Denies numbness, Denies radiating pain into limb and Denies tingling Neuro Denies abnormal gait, Denies dizziness, Denies syncope, Denies numbness, Denies tingling and Denies weakness Endo Denies palpitations Physical Exam Vital Signs: Last Vital Signs Pulse 98 03/07/23 14:11 BP 88/50 L 03/07/23 14:11 BMI result Body Mass Index 29.1 GENERAL APPEARANCE: in no acute distress, ill appearing. In wheelchair. NECK: no carotid bruit, no jugular venous distention. SKIN: no suspicious lesions, warm and dry. HEART: no murmurs, regular rate and rhythm. LUNGS: clear to auscultation bilaterally. ABDOMEN: soft, nontender. EXTREMITIES: no edema. PERIPHERAL PULSES: equal. NEUROLOGIC: No gross deficits, AAO X 3 Office Procedures EKG Details: Sinus rhythm 98 beats per minute, axis, incomplete right bundle-branch block, QTC 469 milliseconds. [id number], Complete Assessment & Plan Assessment & Plan (1) NSTEMI (non-ST elevated myocardial infarction): Code(s): I21.4 - Non-ST elevation (NSTEMI) myocardial infarction (2) Hypertension: Code(s): I10 - Essential (primary) hypertension (3) Acute on chronic heart failure with preserved ejection fraction (HFpEF): Code(s): I50.33 - Acute on chronic diastolic (congestive) heart failure Plan Pleasant 72 year gentleman here for follow-up. Was seen hospital in November presented with NSTEMI in the setting of urosepsis. We plan a stress test but it appears he has had another episode of urosepsis. He is back for follow-up. No chest pain or shortness of breath. He is in a wheelchair low. We will arrange a Lexiscan for him. Blood pressure is low. I have advised to hold amlodipine, losartan and Lasix for now. As his blood pressure improved the losartan should be started at 50 mg brother 100 mg. I think amlodipine should be discontinued. Clinically does not appear to be in heart failure but he can monitor at the nursing facility and this can be resumed depending on weight gain or symptoms of heart failure. He should follow-up with urology because he has oseguera and has been getting severe sepsis. Thank you for allowing me to participate in the care of your patient. Please feel free to contact me if you have any questions. Medications: Discontinued famotidine 20 mg PO BEDTIME 30 tabs 0RF Coding Level of Care Code Est Pt Level 4 (66722) Diagnoses NSTEMI (non-ST elevated myocardial infarction) I21.4 Hypertension I10 Acute on chronic heart failure with preserved ejection fraction (HFpEF) I50.33 CPT Codes EKG - CPT: 78516-[id number], Complete ([id number])
[2023-03-07 14:11] VITALS: BP 88/50; PULSE 98; BMI 29.1
== END 2023-03-07 14:53 | disposition home or self-care (01) ==
PROVIDERS: Visit Provider Internal Medicine Cardiovascular Disease
DX: I50.33 Acute on chronic diastolic (congestive) heart failure (principal)
CPT/HCPCS: 93010; 99214

== ENCOUNTER → 2023-03-07 14:07 | Outpatient (BNVA) | payer OTHER, MEDICARE, SELFPAY | PROVIDERS: Visit Provider Internal Medicine Cardiovascular Disease | DX: I21.4 Non-ST elevation (NSTEMI) myocardial infarction (principal); I11.0 Hypertensive heart disease with heart failure; I50.33 Acute on chronic diastolic (congestive) heart failure | CPT/HCPCS: 93005; 99212 ==

== ENCOUNTER 2023-05-03 10:28 | Outpatient (AMB) | payer MEDICARE, OTHER, SELFPAY ==
--- NOTE | 2023-04-09 04:52 | MHC.OFFVIS ---
Intake Intake Visit Reasons: recurrent UTI Allergies No Known Allergies [No Known Allergies*] Allergy (Verified 03/07/23 14:15) [facility] Medical History Abdomen enlarged Acute on chronic heart failure with preserved ejection fraction (HFpEF) Acute on chronic respiratory failure with hypoxia and hypercapnia Acute renal failure Acute respiratory failure with hypoxia Acute upper gastrointestinal bleeding Afib STIVEN (acute kidney injury) Altered mental status Aspiration pneumonitis Atypical pneumonia Borderline diabetic CHF exacerbation Congestive heart failure Hypertension Hyperthyroidism Hypoxia Ileus Multifocal pneumonia Myocardial infarct Partial obstruction of small intestine Pneumonia Pulmonary aspiration Recurrent major depression Sepsis associated hypotension Toxic metabolic encephalopathy Urethral stricture in male Urinary catheter in place Urinary tract infection Surgical History History of shoulder surgery History of surgery of head Family History Mother No problems noted. Father Heart disease Social History Household Members: Other Housing: Long Term Do you presently have visiting nurse or other home services: No Alcohol intake: former Year quit: 1989 Patient Tobacco Use Status: Never used Tobacco Substance Use Type: Unknown Advance Directives Date on File: 11/01/20 service: No Current occupational status: retired Results Reviewed Results Reviewed: Date of Service: 02/27/23 Procedure(s): US renal BI EXAMINATION: US RETROPERITONEAL LIMITED (RENAL ONLY) CLINICAL INFORMATION: Rule out obstruction. Acute kidney insufficiency COMPARISON: Ultrasound abdomen limited 11/12/2022. CT abdomen and pelvis 11/12/2022. X-ray abdomen KUB 10/24/2020. FINDINGS: RIGHT KIDNEY: 11.3 x 5.3 x 5.0 cm (SAG x AP x TRV). The kidney is normal in size, contour, and echogenicity. Renal cortical thickness is normal. No renal calculi or hydronephrosis. Multiple cysts, largest measuring 4.3 x 3.1 x 2.6 cm in the lower pole. No imaging follow-up recommended. LEFT KIDNEY: 14.0 x 5.2 x 4.2 cm (SAG x AP x TRV). The kidney is normal in size, contour, and echogenicity. Renal cortical thickness is normal. No renal calculi or hydronephrosis. Multiple cysts, largest measuring 3.2 x 2.2 x 2.1 cm in the lower pole. No imaging follow-up recommended. IMPRESSION: No hydronephrosis. Ordered:? Urine Culture? Procedure?Result?Verified?Site ? Urine Culture? Final?02/27/23 ? Report Result?> 100,000 cfu/ml ? Mixed bacterial tanna characteristic of ? urogenital contamination. Assessment & Plan Assessment & Plan Medications: Discontinued famotidine 20 mg PO BEDTIME 30 tabs 0RF Coding Diagnoses
--- NOTE | 2023-05-03 10:30 | A.OFFVIS_ITS ---
Intake Intake Visit Reasons: recurrent UTI Intake Note: Patient presents today for a follow-up on Recurrent UTI's: Meds- Finasteride & Tamsulosin Allergies to Antibiotic- No Known Allergies Blood Thinner- Aspirin Student Education Specialist Required: No Accompanied by: Significant Other Allergies No Known Allergies [No Known Allergies*] Allergy (Verified 03/07/23 14:15) HPI HPI Comments History of Present Illness Details Daniel is a 72-year-old male who presents today to the office for a follow-up. 05/03/2023? Daniel is a 72-year-old male who presents to the office for urinary retention follow-up. The patient was seen in consultation while he was an in-patient at [facility]. He was having urinary retention. Evaluation determined he had a dense urethral stricture, intially supra pubic tube placed at bedside followed by urethral dilation, incision of urethral stricture in the OR. Currently Oseguera catheter is in place. He is followed today for recurrent urinary tract infections and urinary retention. He states that the Oseguera catheter was being changed by the nurse for every 10 days. I have discussed plan for SP tube to replace chronic urethral oseguera catheter. I reviewed the renal US results from 02/27/2023 revealed no hydronephrosis. I reviewed the urine culture results from 02/26/2023 which came back > 100,000 cfu/ml mixed bacterial tanna Review of chart: CTAP scan 12/03-- findings of bilateral Bosniak 1 renal cysts.?? 05/03/2023: Plan: Will discontinue tamsulosin. SP tube. medical clearance prior to procedure. Patient to stop taking Aspirin 10 to 14 days before the procedure. I discussed the risks and benefits including infections, bleeding, and bowel perforations. [facility] Medical History Abdomen enlarged Acute on chronic heart failure with preserved ejection fraction (HFpEF) Acute on chronic respiratory failure with hypoxia and hypercapnia Acute renal failure Acute respiratory failure with hypoxia Acute upper gastrointestinal bleeding Afib STIVEN (acute kidney injury) Altered mental status Aspiration pneumonitis Atypical pneumonia Borderline diabetic CHF exacerbation Congestive heart failure Hypertension Hyperthyroidism Hypoxia Ileus Multifocal pneumonia Myocardial infarct Partial obstruction of small intestine Pneumonia Pulmonary aspiration Recurrent major depression Sepsis associated hypotension Toxic metabolic encephalopathy Urethral stricture in male Urinary catheter in place Urinary tract infection Surgical History History of shoulder surgery History of surgery of head Family History Mother No problems noted. Father Heart disease Social History Household Members: Other Housing: [facility] Do you presently have visiting nurse or other home services: No Alcohol intake: former Year quit: 1989 Patient Tobacco Use Status: Never used Tobacco Substance Use Type: Unknown Advance Directives Date on File: 11/01/20 service: No Current occupational status: retired Review of Systems Const All systems reviewed & are unremarkable except as noted in HPI and below Reports no additional complaints Eyes Reports no additional complaints ENT Denies neck pain Card Denies leg edema Resp Denies cough GI Denies constipation Musc Reports no additional complaints and Denies neck pain Skin/Breast Denies rash and Denies unusual bruising Neuro Reports no additional complaints Psych Reports no additional complaints Endo Reports no additional complaints Naun/Lymph Reports no additional complaints Aller/Immun Reports no additional complaints Results Reviewed Results Reviewed: Date of Service: 02/27/23 EXAMINATION:? US RETROPERITONEAL LIMITED (RENAL ONLY) CLINICAL INFORMATION: Rule out obstruction. Acute kidney insufficiency COMPARISON:? Ultrasound abdomen limited 11/12/2022. CT abdomen and pelvis 11/12/2022. X-ray abdomen KUB 10/24/2020. FINDINGS: RIGHT KIDNEY: 11.3 x 5.3 x 5.0 cm (SAG x AP x TRV). The kidney is normal in size, contour, and echogenicity. Renal cortical thickness is normal. No renal calculi or hydronephrosis. Multiple cysts, largest measuring 4.3 x 3.1 x 2.6 cm in the lower pole. No imaging follow-up recommended. LEFT KIDNEY: 14.0 x 5.2 x 4.2 cm (SAG x AP x TRV). The kidney is normal in size, contour, and echogenicity. Renal cortical thickness is normal. No renal calculi or hydronephrosis. Multiple cysts, largest measuring 3.2 x 2.2 x 2.1 cm in the lower pole. No imaging follow-up recommended. IMPRESSION:? No hydronephrosis. Ordered:? Urine Culture? Procedure?Result?Verified?Site ? Urine Culture? Final?02/27/23 ? Report Result?> 100,000 cfu/ml ? Mixed bacterial tanna characteristic of ? urogenital contamination. Assessment & Plan Assessment & Plan (1) Generalized weakness: Code(s): R53.1 - Weakness (2) Urinary retention: Code(s): R33.9 - Retention of urine, unspecified (3) Urethral stricture: Code(s): N35.919 - Unspecified urethral stricture, male, unspecified site (4) Neurogenic bladder: Code(s): N31.9 - Neuromuscular dysfunction of bladder, unspecified Plan SP tube. medical clearance prior to procedure.? Advised the patient to stop taking Aspirin 10 to 14 days before the procedure.? Advised the patient to stop taking tamsulosin. I discussed the risks and benefits including infections, bleeding, and bowel perforations. Patient Instructions: The patient had an opportunity to ask questions regarding treatment plan. All questions were answered. Imaging, Laboratory studies and physical exam results were discussed and reviewed in detail. No major barriers to understanding were identified. The patient expressed understanding and agreement with the above treatment plan.? ? ? The patient is aware they should contact our office by phone for worsening of their current condition or the appearance of new symptoms. Compliance is encouraged with any medications and followup testing that is ordered.? ? ? It is a privilege to be allowed the opportunity to participate in the urologic care of your patient. If you have any questions or concerns regarding treatment for the above conditions please do not hesitate to contact me. The office telephone contact is [phone].? ? ? This note is constructed in part using voice recognition software. While every effort has been made to ensure accuracy neonatal specialist errors may have been included.? ? ? Yours sincerely,? ? ? Donald Javier MD? ? Coding Level of Care Code Est Pt Level 4 (27734) Diagnoses Generalized weakness R53.1 Urinary retention R33.9 Urethral stricture N35.919 Neurogenic bladder N31.9
== END 2023-05-03 11:06 | disposition home or self-care (01) ==
LOC: HO.HUSH 10:28
PROVIDERS: PCP Internal Medicine; Visit Provider Urology
DX: R53.1 Weakness (principal); R33.9 Retention of urine, unspecified; N35.919 Unspecified urethral stricture, male, unspecified site; N31.9 Neuromuscular dysfunction of bladder, unspecified
CPT/HCPCS: 99214

== ENCOUNTER → 2023-05-03 10:28 | Outpatient (BNVA) | payer MEDICARE, OTHER, SELFPAY | PROVIDERS: PCP Internal Medicine; Visit Provider Urology | DX: N31.9 Neuromuscular dysfunction of bladder, unspecified (principal); N35.919 Unspecified urethral stricture, male, unspecified site; R33.9 Retention of urine, unspecified; R53.1 Weakness | CPT/HCPCS: 99212 ==

== ENCOUNTER → 2023-05-08 08:13 | Outpatient (REF) | payer MEDICARE, OTHER, SELFPAY ==
--- NOTE | ~2023-05-08 | NM_ITS ---
Lexiscan Myocardial perfusion study Indication: Coronary artery disease, assess for ischemia Technique: The patient was brought in for a Lexiscan perfusion study on 05/08/2023 and was injected 0.4 mg of Lexiscan intravenously. Within a minute of this injection 30 mCi of sestamibi was given intravenously. Images were obtained using the SPECT gamma camera interlaced with the gating device. Images were obtained in supine position. Resting perfusion study was performed on 05/10/2023. Patient was administered 30 mCi of sestamibi intravenously at rest. Images were then obtained in supine position. Images were processed with the software and compared side to side in short axis, horizontal long axis and vertical long axis views. Total DLP 92mGy-cm. Findings: Raw acquisition reviewed. The stress perfusion study showed absent tracer uptake in the basal to mid inferior and inferolateral wall. Mildly reduced tracer uptake in the distal part of anterior septum. With CT attenuation correction, no significant changes. Gating not performed due to arrhythmia. Resting study shows markedly reduced tracer uptake in the basal part of inferior wall. There is some improvement with CT attenuation correction and hence could have components of diaphragmatic attenuation artifact. Gating at rest reveals inferior hypokinesis. Mild distal anteroseptal hypokinesis. LVEF 58%. The findings are consistent with basal inferior/inferolateral perfusion defect with reversible and fixed components. Mild fixed distal anteroseptal perfusion defect. NM/NM ingris perf SPECT rest & str Impression: 1. Myocardial perfusion imaging study shows mixed ischemia-infarction pattern in the basal to almost mid inferior/inferolateral wall. Possible small nontransmural infarct in the distal anteroseptal wall versus artifact. 2. Gated LVEF is 58% during rest. EKG component of the test reported separately.
--- NOTE | 2023-05-08 08:20 | CA_ITS ---
Acquisition Time: 2023-05-08 08:34:42 Total Exercise Time: 00:02:00 Test Indications: cp Medications: SEE H Protocol: LEXISCAN Max HR: 110 BPM 74% of Pred: 147 BPM Max BP: 116/062 mmHG Max Work Load: 1.0 METS Pharmacological stress test with Lexiscan injection while sitting and slowly kicking his legs, without anginal symptoms, without arrhythmias, with normotensive response injection, with nondiagnositic EKGs. Aminophylline 75mg IVP given to reverse Lexiscan. Nuclear images pending. Test reviewed with Dr. Finch Referred By: Mike Lamas Overread By: Pili Rob
== END ==
LOC: HO.CARD 08:13
PROVIDERS: PCP Internal Medicine; Visit Provider Internal Medicine Cardiovascular Disease
DX: I21.4 Non-ST elevation (NSTEMI) myocardial infarction (principal)
CPT/HCPCS: 78452; 93017; A9500; J0280; J2785

== ENCOUNTER → 2023-05-08 08:20 | Outpatient (BNV) | payer MEDICARE, OTHER, SELFPAY | PROVIDERS: PCP Internal Medicine; Visit Provider Nurse Practitioner | DX: I21.4 Non-ST elevation (NSTEMI) myocardial infarction (principal) | CPT/HCPCS: 78452; 93016; 93018 ==

== ENCOUNTER 2023-07-16 13:18 | Outpatient (AMB) | payer MEDICARE, OTHER, SELFPAY ==
[2023-07-16 13:32] VITALS: BP 130/72; PULSE 89; BMI 27.8
--- NOTE | 2023-07-16 13:32 | MHC.OFFVIS ---
Intake Vital Signs 07/16/23 13:32 Height 5 ft 7 in Weight 177 lb 4.026 oz BMI 27.8 BP 130/72 Pulse 89 Pulse Source Pulse Oximeter Intake Visit Reasons: f/u Mushroom Spawn Maker Required: No Allergies No Known Allergies [No Known Allergies*] Allergy (Verified 07/16/23 13:35) Medication List - Last Reconciled 07/16/23 by RAÚL Vivar acetaminophen 650 mg PO Q4H PRN amitriptyline 12.5 mg (1/2 x 25 mg) PO BEDTIME aspirin 81 mg PO DAILY atorvastatin 40 mg PO DAILY bisacodyl 10 mg NJ DAILY PRN bisacodyl (Dulcolax (bisacodyl)) 10 mg NJ DAILY carboxymethylcellulose sodium 1% (Artificial Tears (carboxymethylcellulose)) 1 drp ophthalmic (eye) DAILY PRN cholecalciferol (vitamin D3) 50 mcg PO DAILY diazepam 2.5 mg PO BID@0900,1500 diazepam 5 mg PO BEDTIME famotidine 20 mg PO DAILY@0630 finasteride 5 mg PO DAILY gabapentin 200 mg PO BID losartan 50 mg PO DAILY magnesium citrate 150 mL PO DAILY PRN magnesium citrate 100 mg PO DAILY 1 day magnesium hydroxide (Milk of Magnesia) 30 mL PO DAILY PRN naproxen (Naprosyn) 500 mg PO Q12H PRN omeprazole 20 mg PO DAILY paroxetine HCl 10 mg PO DAILY polyethylene glycol 3350 (Miralax) 17 grams PO DAILY potassium chloride ER 10 mEq PO DAILY [Probiotic 1 cap PO BID] sennosides-docusate sodium 8.6-50 mg (Senna Plus) 2 tabs PO BEDTIME sodium phosphates 19-7 gram/118 mL (Fleet Enema) 118 mL [place] DAILY PRN tamsulosin 0.4 mg PO BEDTIME HPI f/u HPI Details Daniel is a 72-year-old male with past medical history of hypertension, CKD, CVA, heart failure with preserved EF, NSTEMI in the setting of urosepsis who presents for follow-up after recent stress test. Today he reports that he feels well. He has not had any recent issues with urosepsis. He has a Witt catheter in place continually and tells me they change the tubing more frequently now. He resides at a long-term care facility. He describes it as a rehab and that he does get some physical therapy. No chest discomfort at rest or with activity. No shortness of breath, palpitations, presyncope, syncope, PND, orthopnea or edema. He is sitting in a wheelchair this visit. He says he ambulates only very short distances with a walker. He says he can stand only 30 seconds without assistance. He reports right leg weakness from prior CVA. Takes his medications when they are given to him. [facility] Medical History Recurrent major depression Urethral stricture in male STIVEN (acute kidney injury) Pneumonia Toxic metabolic encephalopathy CHF exacerbation Acute on chronic heart failure with preserved ejection fraction (HFpEF) Congestive heart failure Afib Pulmonary aspiration Acute respiratory failure with hypoxia Ileus Urinary tract infection Sepsis associated hypotension Partial obstruction of small intestine Aspiration pneumonitis Atypical pneumonia Acute on chronic respiratory failure with hypoxia and hypercapnia Abdomen enlarged Multifocal pneumonia Acute renal failure Hypoxia Acute upper gastrointestinal bleeding Altered mental status Borderline diabetic Urinary catheter in place Hyperthyroidism Hypertension Myocardial infarct Surgical History History of surgery of head History of shoulder surgery Family History Mother No problems noted. Father Heart disease Social History Household Members: Other Housing: [facility] Do you presently have visiting nurse or other home services: No Alcohol intake: former Year quit: 1989 Comment: out of unit Patient Tobacco Use Status: Never used Tobacco Substance Use Type: Unknown Advance Directives Date on File: 11/01/20 service: No Current occupational status: retired Review of Systems Const All systems reviewed & are unremarkable except as noted in HPI and below ENT Denies dizziness Card Denies chest pain, Denies chest pain at rest, Denies chest pain with activity, Denies rapid heart rate, Denies pedal edema, Denies edema, Denies leg edema, Denies lightheadedness, Denies palpitations, Denies dyspnea, Denies dyspnea on exertion and Denies orthopnea Resp Denies cough, Denies dyspnea and Denies dyspnea on exertion GI Denies hematochezia and Denies change in stool character Musc Reports abnormal gait, Denies limited range of motion, Denies muscle cramps, Reports muscle weakness, Denies numbness, Denies radiating pain into limb, Denies stiffness and Denies tingling Neuro Reports abnormal gait, Denies dizziness, Denies numbness and Denies tingling Endo Denies palpitations Physical Exam Vital Signs: Last Vital Signs Pulse 89 07/16/23 13:32 BP 130/72 07/16/23 13:32 BMI result Body Mass Index 27.8 Const General: cooperative, healthy appearing, comfortable and no acute distress Orientation/consciousness: patient oriented x3 Resp Effort & Inspection: normal respiratory effort Auscultation: clear to auscultation bilaterally, no rales, no rhonchi and no wheezes Cardio Jugular venous distension: no JVD Rate: regular rate Rhythm: regular rhythm Heart sounds: S1 normal heart sound present, S2 normal heart sound present, no murmurs and no rubs Neuro General: patient oriented x3 Extrem General: Yes normal to inspection and No no pedal edema Psych Appearance: grossly normal Mental Status: mental status grossly normal Speech and movement: Normal speech and movement present Assessment & Plan Assessment & Plan (1) Abnormal nuclear stress test: Code(s): R94.39 - Abnormal result of other cardiovascular function study Plan: History of NSTEMI in the setting of urosepsis November 2022. Echocardiogram done 11/13/2022 showing EF 55-60%, no definitive wall motion abnormalities. Nuclear stress test delayed due to recurrent episode of urosepsis. Nuclear stress test finally completed 05/10/2023 showing mixed ischemia/infarct pattern of the basal to almost mid inferior/inferior lateral wall, possible small nontransmural infarct in the distal anterior septal wall versus artifact. Today he reports he has been doing well with no chest discomfort or shortness of breath. He is mostly sedentary. He is in a wheelchair at this visit and can ambulate only short distances with a walker. Review test results with him in detail. Signs and symptoms of angina reviewed. Instructed to notify us if he has any angina. Emergency care if ever needed for symptoms. Will continue with medical management the absence of symptoms. Will have him continue aspirin indefinitely. Continue atorvastatin with ideal LDL goal less than 70. Blood pressure currently normal range. Continue losartan. Labs done on 03/01/2023 showed creatinine 1.13, potassium 4.4. Cardiology follow-up in 6 months, sooner if needed. (2) Non-ST elevation PA (NSTEMI): Code(s): I21.4 - Non-ST elevation (NSTEMI) myocardial infarction Plan: November 2022 as above (3) CAD (coronary artery disease): Code(s): I25.10 - Atherosclerotic heart disease of [place] coronary artery without angina pectoris Qualifiers: Coronary Disease-Associated Artery/Lesion type: [place] artery [place] vs. transplanted heart: [place] heart Associated angina: without angina Qualified Code(s): I25.10 - Atherosclerotic heart disease of [place] coronary artery without angina pectoris Plan: Presume CAD with abnormal nuclear stress test as above. Cardiac risk factors of hyperlipidemia, sedentary. Denies any anginal symptoms at this time. Will continue to follow and continue med management. (4) Generalized weakness: Code(s): R53.1 - Weakness Plan: Reported history of prior CVA approximally 2 years ago. Residual right leg weakness. Patient Instructions: Time spent on chart review, documentation, interview, assess Coding Level of Care Code Est Pt Level 4 (27234) Diagnoses Abnormal nuclear stress test R94.39 Non-ST elevation PA (NSTEMI) I21.4 Coronary artery disease involving [place] coronary artery of [place] heart without angina pectoris I25.10 Coronary Disease-Associated Artery/Lesion type: [place] artery [place] vs. transplanted heart: [place] heart Associated angina: without angina Generalized weakness R53.1 Time Spent (min) 28
== END 2023-07-16 14:18 | disposition home or self-care (01) ==
PROVIDERS: PCP Internal Medicine; Visit Provider Nurse Practitioner Family
DX: R94.39 Abnormal result of other cardiovascular function study (principal); I21.4 Non-ST elevation (NSTEMI) myocardial infarction; I25.10 Atherosclerotic heart disease of native coronary artery without angina pectoris; R53.1 Weakness
CPT/HCPCS: 99214

== ENCOUNTER → 2023-07-16 13:18 | Outpatient (BNVA) | payer MEDICARE, OTHER, SELFPAY | PROVIDERS: PCP Internal Medicine; Visit Provider Nurse Practitioner Family | DX: I21.4 Non-ST elevation (NSTEMI) myocardial infarction (principal); I25.10 Atherosclerotic heart disease of native coronary artery without angina pectoris; I13.0 Hypertensive heart and chronic kidney disease with heart failure and stage 1 through stage 4 chronic kidney disease, or unspecified chronic kidney disease; I50.33 Acute on chronic diastolic (congestive) heart failure; N17.9 Acute kidney failure, unspecified; N18.9 Chronic kidney disease, unspecified; R53.1 Weakness; R94.39 Abnormal result of other cardiovascular function study | CPT/HCPCS: 99212 ==

== ENCOUNTER → 2024-06-23 09:41 | Outpatient (BNVA) | payer MEDICARE, OTHER, SELFPAY | PROVIDERS: PCP Internal Medicine; Visit Provider Urology ==

== ENCOUNTER 2024-08-25 09:52 | Outpatient (AMB) | payer MEDICARE, MEDICAID, SELFPAY ==
--- NOTE | 2024-08-25 10:55 | A.OFFVIS_ITS ---
Intake Visit Reasons: Follow up urinary retention Intake Note: Patient is present for follow up Urology Med: Antibiotic Allergy: None Blood Thinner: Aspirin Continuous Pickling Line Pickler Required: No Accompanied by: Self / Same As Patient Allergies No Known Allergies [No Known Allergies*] Allergy (Verified 08/25/24 10:55) HPI Comments Details: 08/25/24--Daniel is a 73-year-old male who presents today to the office for a follow-up. He has not been seen in the office since 05/03/2023. He states he has had a visiting nurse change his Oseguera catheter every month. He is now interested in the suprapubic tube. Discussed will schedule this as an outpatient at [facility]. 05/03/2023? Daniel is a 72-year-old male who presents to the office for urinary retention follow-up. The patient was seen in consultation while he was an in-patient at [facility]. He was having urinary retention. Evaluation determined he had a dense urethral stricture, intially supra pubic tube placed at bedside followed by urethral dilation, incision of urethral stricture in the OR. Currently Oseguera catheter is in place. He is followed today for recurrent urinary tract infections and urinary retention. He states that the Oseguera catheter was being changed by the nurse for every 10 days. I have discussed plan for SP tube to replace chronic urethral oseguera catheter. I reviewed the renal US results from 02/27/2023 revealed no hydronephrosis. I reviewed the urine culture results from 02/26/2023 which came back > 100,000 cfu/ml mixed bacterial tanna Review of chart: CTAP scan 12/03-- findings of bilateral Bosniak 1 renal cysts.?? 05/03/2023: Plan: Will discontinue tamsulosin. SP tube. medical clearance prior to procedure. Patient to stop taking Aspirin 10 to 14 days before the procedure. I discussed the risks and benefits including infections, bleeding, and bowel perforations. [facility] Medical History Recurrent major depression Urethral stricture in male STIVEN (acute kidney injury) Pneumonia Toxic metabolic encephalopathy CHF exacerbation Acute on chronic heart failure with preserved ejection fraction (HFpEF) Congestive heart failure Afib Pulmonary aspiration Acute respiratory failure with hypoxia Ileus Urinary tract infection Sepsis associated hypotension Partial obstruction of small intestine Aspiration pneumonitis Atypical pneumonia Acute on chronic respiratory failure with hypoxia and hypercapnia Abdomen enlarged Multifocal pneumonia Acute renal failure Hypoxia Acute upper gastrointestinal bleeding Altered mental status Borderline diabetic Urinary catheter in place Hyperthyroidism Hypertension Myocardial infarct Surgical History History of surgery of head History of shoulder surgery Family History Mother No problems noted. Father Heart disease Social History Household Members: Other Housing: [facility] Do you presently have visiting nurse or other home services: No Alcohol intake: former Year quit: 1989 Comment: out of unit Patient Tobacco Use Status: Never used Tobacco Substance Use Type: Unknown Advance Directives Date on File: 11/01/20 service: No Current occupational status: retired Review of Systems Const All systems reviewed & are unremarkable except as noted in HPI and below Reports no additional complaints Eyes Reports no additional complaints ENT Reports no additional complaints Card Reports no additional complaints Resp Reports no additional complaints GI Reports no additional complaints Reports as per HPI Musc Reports no additional complaints Skin/Breast Reports system reviewed and no additional complaints, except as documented Neuro Reports no additional complaints Psych Reports no additional complaints Endo Reports no additional complaints Naun/Lymph Reports no additional complaints Aller/Immun Reports no additional complaints Assessment & Plan Assessment & Plan (1) Urinary retention: Code(s): R33.9 - Retention of urine, unspecified Category: Medical (2) Urethral stricture: Code(s): N35.919 - Unspecified urethral stricture, male, unspecified site Category: Medical (3) Neurogenic bladder: Code(s): N31.9 - Neuromuscular dysfunction of bladder, unspecified Category: Medical (4) Chronic indwelling Oseguera catheter: Code(s): Z97.8 - Presence of other specified devices Category: Medical Plan SP tube. medical clearance prior to procedure.? Advised the patient to stop taking Aspirin 14 days before the procedure.? Medical clearance prior Orders: Orders AMB Urinalysis Automated Today Z13.9 - Encounter for screening, unspecified Patient Instructions: The patient had an opportunity to ask questions regarding treatment plan. The patient expressed understanding and agreement with the above treatment plan. The patient is aware they should contact our office by phone for worsening of their current condition or the appearance of new symptoms. Compliance is encouraged with any medications and followup testing that is ordered. It is a privilege to be allowed the opportunity to participate in the urologic care of your patient. If you have any questions or concerns regarding treatment for the above conditions please do not hesitate to contact me. The office telephone contact is [phone]. This note is constructed in part using voice recognition software. While every effort has been made to ensure accuracy rougher for cement errors may have been included. Yours sincerely, Donald Javier MD Coding Level of Care Code Est Pt Level 4 (99063) Diagnoses Urinary retention R33.9 Urethral stricture N35.919 Neurogenic bladder N31.9 Chronic indwelling Oseguera catheter Z97.8
== END 2024-08-25 11:42 | disposition home or self-care (01) ==
PROVIDERS: PCP Internal Medicine; Visit Provider Urology
DX: R33.9 Retention of urine, unspecified (principal); N35.919 Unspecified urethral stricture, male, unspecified site; N31.9 Neuromuscular dysfunction of bladder, unspecified; Z97.8 Presence of other specified devices
CPT/HCPCS: 99214

== ENCOUNTER → 2024-08-25 09:52 | Outpatient (BNVA) | payer MEDICARE, OTHER, SELFPAY | PROVIDERS: PCP Internal Medicine; Visit Provider Urology | DX: R33.9 Retention of urine, unspecified (principal); N35.919 Unspecified urethral stricture, male, unspecified site; N31.9 Neuromuscular dysfunction of bladder, unspecified; Z97.8 Presence of other specified devices | CPT/HCPCS: 99212 ==

== ENCOUNTER 2025-01-13 09:26 | Emergency (ER) | payer MEDICARE, MEDICAID, SELFPAY ==
[2025-01-13 09:36] VITALS: BP 173/80; PULSE 63; O2SAT 98
[2025-01-13 09:39] VITALS: BP 172/72; PULSE 63; RESP 16; TEMP 36.8; O2SAT 96
--- NOTE | 2025-01-13 09:39 | PC.NURSE ---
Pt A&O X4 VSS Pt has slurred speech at baseline- Here for Cath insertion problem from SN- SNF unable to insert new cath for scheduled cath change. Pt denies complaints. Some urine on chux under pt. Pt in NAD
[2025-01-13 09:47] VITALS: BMI 32.7
--- NOTE | 2025-01-13 10:05 | PC.NURSE ---
Bladder scan for 271 Pt states able to void x 3 since old catheter was removed but with weak stream
[2025-01-13] MEDS: Lidocaine HCl 2 % Urojet 10 ML JEL.PF.APP TOPICAL (10:36)
--- NOTE | 2025-01-13 10:57 | ED_ITS ---
HPI - Male Genitourinary General Chief complaint: Urogenital-Male Stated complaint: F/C PROBLEM,BP 187/78,FROM SNF PER EMS Time Seen by Provider: 01/13/25 10:54 Source: patient and EMS Mode of arrival: EMS Limitations: no limitations History of Present Illness ED Provider: Kathy Argueat PA-C HPI Narrative: Patient is a 74 year old assigned male at with a history of CAD, chronic indwelling oseguera catheter, NSTEMI, COPD, CHF, HTN, and depression presenting to the emergency department today for oseguera catheter replacement. Patient states that he is at a SNF and they attempted to change his catheter but struggled to do so - so they sent him here. Patient denies any dizziness, lightheadedness, abdominal pain, nausea, vomiting, fever, chills, blurry vision, double vision, loss of vision, chest pain, difficulty breathing, shortness of breath, back pain, night sweats, pain with urination, increased urinary frequency, increased urinary urgency, blood in his urine or stool, syncope or a near syncopal episode, recent trauma or falls, bowel incontinence, bladder incontinence, or any other complaints at this time. Related Data Home Medications ?Medication ?Instructions ?Recorded ?Confirmed cholecalciferol (vitamin D3) 50 50 mcg PO DAILY 02/17/22 09/22/24 mcg (2,000 unit) tablet gabapentin 100 mg capsule 100 mg PO TID 02/17/22 09/22/24 paroxetine HCl 10 mg tablet 10 mg PO DAILY 02/17/22 09/22/24 potassium chloride 10 mEq 10 meq PO DAILY 02/17/22 09/22/24 tablet,extended release(part/cryst) sennosides 8.6 mg-docusate sodium 2 tab PO BEDTIME 02/17/22 09/22/24 50 mg tablet (Senna Plus) naproxen 500 mg tablet (Naprosyn) 500 mg PO Q12H PRN Pain 11/13/22 09/22/24 omeprazole 20 mg capsule,delayed 20 mg PO DAILY 11/13/22 09/22/24 release atorvastatin 40 mg tablet 40 mg PO DAILY 12/06/22 09/22/24 finasteride 5 mg tablet 5 mg PO DAILY 12/06/22 09/22/24 tamsulosin 0.4 mg capsule 0.4 mg PO BEDTIME 12/06/22 09/22/24 acetaminophen 325 mg tablet 650 mg PO Q4H PRN Fever Or Pain 01/08/23 09/22/24 carboxymethylcellulose sodium 1 % 1 drp ophthalmic (eye) DAILY PRN 01/08/2306/06 eye drops (Artificial Tears Dry Eyes (carboxymethylcellulose)) famotidine 20 mg tablet 20 mg PO BEDTIME 01/08/23 09/22/24 bisacodyl 10 mg rectal suppository 10 mg DC DAILY PRN Constipation 02/26/23 09/22/24 diazepam 5 mg tablet 2.5 mg PO BID@0900,1500 02/26/23 09/22/24 diazepam 5 mg tablet 5 mg PO BEDTIME 02/26/23 09/22/24 magnesium hydroxide 400 mg/5 mL 30 ml PO DAILY PRN Constipation 02/26/23 09/22/24 oral suspension (Milk of Magnesia) sodium phosphates 19 gram-7 118 ml DC DAILY PRN Constipation 02/26/23 09/22/24 gram/118 mL enema (Fleet Enema) losartan 50 mg tablet 100 mg PO DAILY 07/16/23 09/22/24 COVID vac 24-25(12up)(Pfi)(PF) 30 ml IM 09/22/24 mcg/0.3 mL IM syringe ([facility] (12y up)(PF)) amlodipine 5 mg tablet 5 mg PO DAILY 09/22/24 09/22/24 dextrose 40 % oral gel (Glucose 10 g PO Q15M PRN Hypoglycemia 09/22/24 09/22/24 Gel) fluticasone propionate 50 2 spray intranasal DAILY congestion 09/22/24 09/22/24 mcg/actuation nasal spray,suspension furosemide 20 mg tablet 20 mg PO DAILY 09/22/24 09/22/24 gabapentin 400 mg capsule 400 mg PO TID 09/22/24 09/22/24 glucagon 1 mg solution for 1 mg subcut Q20M PRN Hypoglycemia 09/22/24 09/22/24 injection (GlucaGen HypoKit) guaifenesin 600 mg tablet, 600 mg PO Q12H PRN Congestion 09/22/24 09/22/24 extended release 12 hr (Mucinex) lactulose 10 gram/15 mL oral 20 g PO DAILY PRN Constipation 09/22/24 09/22/24 solution loratadine 10 mg tablet 10 mg PO DAILY 09/22/24 09/22/24 Previous Rx's ?Medication ?Instructions ?Recorded polyethylene glycol 3350 17 gram 17 g PO DAILY #30 ea 10/31/20 oral powder packet (Miralax) amitriptyline 25 mg tablet 12.5 mg (1/2 x 25 mg) PO BEDTIME 01/12/23 #30 tabs magnesium citrate 100 mg capsule 100 mg PO DAILY 1 day #1 cap 05/03/23 solifenacin 10 mg tablet 10 mg PO DAILY 30 days #30 tabs 06/23/24 Allergies Allergy/AdvReac Type Severity Reaction Status Date / Time No Known Allergies Allergy Verified 01/13/25 09:50 [No Known Allergies*] Review of Systems Constitutional: Constitutional: Reports as per HPI Eyes: Eyes: Reports as per HPI Cardiovascular: Cardiovascular: Reports as per HPI Respiratory: Respiratory: Reports as per HPI Gastrointestinal: Gastrointestinal: Reports as per HPI Genitourinary: Comments: attempted oseguera catheter replacement - failed. [facility] Past Medical History Attestation statement: The following information was validated with the patient. Source: old records reviewed and nursing notes reviewed Medical History Dementia Diabetes Mild cognitive impairment Depression GERD (gastroesophageal reflux disease) Dysphagia COPD (chronic obstructive pulmonary disease) Recurrent major depression Urethral stricture in male STIVEN (acute kidney injury) Pneumonia Toxic metabolic encephalopathy CHF exacerbation Acute on chronic heart failure with preserved ejection fraction (HFpEF) Congestive heart failure Afib Pulmonary aspiration Acute respiratory failure with hypoxia Ileus Urinary tract infection Sepsis associated hypotension Partial obstruction of small intestine Aspiration pneumonitis Atypical pneumonia Acute on chronic respiratory failure with hypoxia and hypercapnia Abdomen enlarged Multifocal pneumonia Acute renal failure Hypoxia Acute upper gastrointestinal bleeding Altered mental status Borderline diabetic Urinary catheter in place Hyperthyroidism Hypertension Myocardial infarct Surgical History Presence of urogenital implants History of surgery of head History of shoulder surgery Family History Family History Mother No problems noted. Father Heart disease Social History Social History Household Members: Other Housing: Correction Do you presently have visiting nurse or other home services: No Alcohol intake: former Year quit: 1989 Comment: out of unit Patient Tobacco Use Status: Never used Tobacco Smoked in Last 30 Days: No Substance Use Type: Unknown Advance Directives: Yes Advance Directives on File: Yes Advance Directives Date on File: 11/01/20 service: No Current occupational status: retired Physical Exam Vital Signs: Vital Signs: Last Vital Signs Temp 98.1 F 01/13/25 13:48 Pulse 62 01/13/25 13:48 Resp 16 01/13/25 13:48 BP 185/86 H 01/13/25 13:48 Pulse Ox 96 01/13/25 13:48 O2 Del Method Room Air 01/13/25 13:48 BMI result Body Mass Index 32.7 Const: General: cooperative, no acute distress, alert and awake Nutritional Appearance: well nourished Orientation/consciousness: patient oriented x3 HEENT: Head: Yes normal to inspection and Yes atraumatic Ears: hearing grossly normal bilaterally and external ears normal General nose exam: Normal external nose present, no nasal discharge noted and no epistaxis Face and sinus: Yes normal facial exam, No abrasion and No laceration Mouth: Normal oral and palatal mucosa present, no drooling and no muffled voice Eyes: General: appearance normal, both eyes and all related structures Periorbital: periorbital findings normal Eyelids: Yes eyelids normal Conjunctivae: conjunctivae normal Pupils: Equal, round and reactive pupils present EOM: EOMs intact bilaterally Neck: Neck: Yes normal visual inspection, Yes full ROM and Yes no lymphadenopathy Resp: Effort & Inspection: normal respiratory effort and able to speak in complete sentences : Other: oseguera catheter in place - not draining well Neuro: General: patient oriented x3, moves all extremities and CN's II-XI intact bilaterally Cranial nerves: Yes Equal, round and reactive pupils present Cognition (Neuro): normal cognition Extrem: General: Yes normal to inspection, Yes full ROM and Yes capillary refill normal Psych: Appearance: grossly normal Mental Status: mental status grossly normal Affect: normal affect Attitude: cooperative Thought process: Normal thought process present Thought content: Normal thought content present Insight: Good insight present (Psych) Medications Administered Discontinued Medications Generic Name Dose Route Start Last Admin Trade Name Freq PRN Reason Stop Dose Admin Lidocaine HCl 10 ml 01/13/25 10:31 01/13/25 10:36 Lidocaine Hcl 2 % Urojet 10 Ml Jel.Pf.Aamir TOPICAL 01/13/25 10:32 10 ml ONCE ONE Administration Medical Decision Making Medical Decision Making MDM Narrative: Patient is a 74 year old assigned male at with a history of CAD, chronic indwelling oseguera catheter, NSTEMI, COPD, CHF, HTN, and depression presenting to the emergency department today for oseguera catheter replacement. Patient's physical exam showed a non-operational oseguera catheter. I explained my physical exam findings to the patient. I answered all questions asked by the patient. Patient's catheter was replaced by nursing, without incident. Patient's oseguera catheter draining appropriately. I stressed the importance of the patient taking his medication as directed (either prescribed or as the over the counter packaging recommends). I stressed the importance of the patient following up with his primary care provider. I stressed the importance of the patient returning to the emergency department immediately if his symptoms were to worsen or if he were to develop any dizziness, shortness of breath, difficulty breathing, chest pain, blurry vision, loss of vision, nausea, vomiting, abdominal pain, fever, chills, back pain, or any other complaints. Patient verbalized agreement and understanding with this treatment plan and discharge. Differential Diagnosis Differential Diagnoses: The differential diagnosis associated with the presentation includes Oseguera catheter replacement Admission/Observation Consideration of admission/observation: Escalation of care including admission/observation considered Patient would have been admitted to the hospital had his clinical presentation warranted hospital admission. Independent Historian Clinical information obtained from an independent historian. History obtained from or confirmed by: EMS (EMS provided additional history and confirmed the history provided by the patient. ) Discharge Plan Discharge Clinical Impression: Displacement of Oseguera catheter Qualifiers: Encounter type: initial encounter Qualified Code(s): T83.021A - Displacement of indwelling urethral catheter, initial encounter Patient Disposition: [facility] Transfer Details: BACK TO [facility] Instructions: Oseguera Catheter Placement and Care (ED) Additional Instructions: Follow up with your primary care provider. Return to the emergency department immediately if you develop any numbness, tingling, dizziness, shortness of breath, difficulty breathing, chest pain, blurry vision, loss of vision, nausea, vomiting, abdominal pain, fever, chills, back pain, or any other complaints. Please see the information below about our Patient Portal. If you are not yet enrolled in the [facility] Patient Portal, you will receive an enrollment email invitation following your visit to any [facility] care setting. You may also self-enroll in the Patient Portal by visiting our website: [email or web address] The following information is required to access the Patient Portal: - Your [facility] Medical Record Number - Your personal home email address (must match what is in your electronic medical record, Registration staff can assist with this) - Name - Date of Capabilities of the Patient Portal: - Message some providers - View upcoming appointments - Access your health summary, medical history, and visit history - View current conditions and allergies - View procedure and lab results - View your medications, including guidelines, side effects, and precautions - Complete pre-appointment questionnaires requested by your provider - Ready summary reports of your office visits and procedures To access the Patient Portal Mobile Aam[facility], follow these directions: - Search [employer] in the Aamir Store or Google [employer] Store - Download the Aamir - Search for [facility] - Enter your login/password Prescriptions: No Action magnesium citrate 100 mg capsule 100 mg PO DAILY 1 Days Qty: 1 0RF Rx Instructions: to be taken 2 days prior to procedure polyethylene glycol 3350 [Miralax] 17 gram powder in packet 17 g PO DAILY Qty: 30 0RF Rx Instructions: FOR CONSTIPATION MANAGEMENT atorvastatin 40 mg tablet 40 mg PO DAILY finasteride 5 mg tablet 5 mg PO DAILY tamsulosin 0.4 mg capsule 0.4 mg PO BEDTIME paroxetine HCl 10 mg Tablet 10 mg PO DAILY gabapentin 100 mg Capsule 100 mg PO TID potassium chloride 10 mEq Tablet,Er Particles/Crystals 10 meq PO DAILY cholecalciferol (vitamin D3) 50 mcg (2,000 unit) Tablet 50 mcg PO DAILY sennosides-docusate sodium [Senna Plus] 8.6-50 mg tablet 2 tab PO BEDTIME omeprazole 20 mg Capsule,Delayed Release(Dr/Ec) 20 mg PO DAILY naproxen [Naprosyn] 500 mg Tablet 500 mg PO Q12H PRN (Reason: Pain) diazepam 5 mg Tablet 2.5 mg PO BID@0900,1500 diazepam 5 mg Tablet 5 mg PO BEDTIME bisacodyl 10 mg Suppository 10 mg DC DAILY PRN (Reason: Constipation) Rx Instructions: USE IF NO BOWEL MOVEMENT FOR 8 HOURS AFTER MILK OF MAGNESIA Fleet Enema 19-7 gram/118 mL Enema 118 ml DC DAILY PRN (Reason: Constipation) Rx Instructions: USE IF NO BOWEL MOVEMENT FOR 8 HOURS AFTER BISACODYL SUPPOSITORY magnesium hydroxide [Milk of Magnesia] 400 mg/5 mL Suspension 30 ml PO DAILY PRN (Reason: Constipation) Rx Instructions: USE IF NO BOWEL MOVEMENT FOR THREE DAYS acetaminophen 325 mg Tablet 650 mg PO Q4H PRN (Reason: Fever Or Pain) Artificial Tears (cmc) 1 % Drops 1 drp OPHTHALMIC (EYE) DAILY PRN (Reason: Dry Eyes) famotidine 20 mg tablet 20 mg PO BEDTIME amitriptyline 25 mg tablet 12.5 mg PO BEDTIME Qty: 30 0RF guaifenesin [Mucinex] 600 mg Tablet Extended Release 12hr 600 mg PO Q12H PRN (Reason: Congestion) dextrose [Glucose Gel] 40 % Gel 10 g PO Q15M PRN (Reason: Hypoglycemia) Rx Instructions: until symptoms of low blood sugar are controlled gabapentin 400 mg capsule 400 mg PO TID amlodipine 5 mg tablet 5 mg PO DAILY furosemide 20 mg Tablet 20 mg PO DAILY GlucaGen HypoKit 1 mg Recon Soln 1 mg SUBCUT Q20M PRN (Reason: Hypoglycemia) Rx Instructions: until target blood sugar attained fluticasone propionate 50 mcg/actuation [place],Suspension 2 spray INTRANASAL DAILY Rx Instructions: administer into each nostril loratadine 10 mg Tablet 10 mg PO DAILY lactulose 10 gram/15 mL Solution 20 g PO DAILY PRN (Reason: Constipation) Comirnaty 2023- (12y up)(PF) 30 mcg/0.3 mL Syringe IM losartan 50 mg tablet 100 mg PO DAILY solifenacin 10 mg tablet 10 mg PO DAILY 30 Days Qty: 30 2RF Referrals: [facility] [Outside] Tim Seaman MD [Primary Care Provider] - Print Language: Irish
--- NOTE | 2025-01-13 13:39 | PC.NURSE ---
Report called to Bianka at facility.
[2025-01-13 13:48] VITALS: BP 185/86; PULSE 62; RESP 16; TEMP 36.7; O2SAT 96
[2025-01-13 17:11] VITALS: BP 185/85; PULSE 62; RESP 16; TEMP 36.7; O2SAT 96
== END 2025-01-13 17:15 | disposition skilled nursing facility (03) ==
PROVIDERS: Emergency Provider Emergency Medicine Emergency Medical Services; PCP Internal Medicine
DX: T83.028A Displacement of other urinary catheter, initial encounter (principal); Y73.8 Miscellaneous gastroenterology and urology devices associated with adverse incidents, not elsewhere classified; Y92.122 Bedroom in nursing home as the place of occurrence of the external cause
CPT/HCPCS: 51702; 99284; 99285